=== PATIENT | male | born 1950 | race Caucasian/White ===

== ENCOUNTER 2019-04-16 06:18 | Emergency (ER) | payer MEDICARE, MEDICAID, SELFPAY ==
[2019-04-16] VITALS (7 sets, daily range): BP systolic 101–139; BP diastolic 66–81; PULSE 83–120; RESP 18–26; TEMP 36.5; O2SAT 94–96; BMI 24.8
--- NOTE | 2019-04-16 06:22 | ED_ITS ---
HPI - SOB/Dyspnea General: Chief Complaint: Shortness of Breath/Dyspnea Stated Complaint: SOB Time Seen by Provider: 04/16/19 06:22 History of Present Illness: Associated symptoms: Reports fever(s) and polyuria; Deny abdominal pain, chest pain, dizziness, extremity pain, nausea, orthopnea, palpitations, polydipsia, syncope or vomiting Review of Systems Const: Reports: fever, chills, body aches and malaise; Denies: fatigue or night sweats Eyes: Denies: change in vision or blurry vision ENMT: Reports: nasal discharge and nasal congestion; Denies: throat pain, oral sores/lesions or dental pain Card: Reports: shortness of breath on exertion; Denies: chest pain, palpitations, irregular heart rhythm, edema, syncope, shortness of breath when lying down or leg pain with exertion Resp: Reports: shortness of breath and productive cough; Denies: non-productive cough or wheezing GI: Reports: heartburn/indigestion; Denies: abdominal pain, nausea, vomiting, vomiting blood, coffee grounds in vomit, difficulty swallowing, diarrhea, constipation, cramping, blood in stool or black tarry stool : Denies: flank pain, difficulty urinating, painful urination, urinary frequency, urinary urgency, urinary incontinence or blood in urine Musc: Denies: neck pain, back pain, extremity pain, extremity swelling, joint pain or joint swelling Skin/Breast: Denies: rash, itching or redness Neuro: Denies: headache, numbness in extremities, weakness in extremities, changes in sensation, lack of coordination, difficulty walking, frequent falls, dizziness, vertigo or confusion Endo: Reports: excessive urination; Denies: excessive thirst, tired all the time or cold intolerance Jax/Lymph: Denies: easy bruising, easy bleeding, petechiae, enlarged lymph nodes or tender lymph nodes PFSH ED PFSH: Statuses (acute, chronic, etc) shown below reflect problem list status as previously entered and may not be historically accurate Social History Smoking and tobacco status: former smoker Physical Exam Const: COMMON NORMALS: average body habitus, oriented x3 and alert GENERAL APPEARANCE: cooperative, comfortable and well developed NUTRITIONAL APPEARANCE: obese ORIENTATION/CONSCIOUSNESS: Yes awake, Yes oriented to person and Yes oriented to place HENMT: COMMON NORMALS: normocephalic, head/scalp atraumatic, EAC's normal, TM's normal bilaterally, external nose normal, moist oral mucous membranes and oropharynx normal HEAD & SCALP: normocephalic and atraumatic NOSE: external nose normal EXTERNAL AUDITORY CANAL: EAC's normal TYMPANIC MEMBRANE: TM's normal bilaterally MOUTH: oral and palatal mucosa normal, lip normal and tongue normal THROAT: posterior oropharynx normal and tonsils no rmal Eye: COMMON NORMALS: PERRL, EOMs intact bilaterally, conjunctivae normal and no scleral icterus CONJUNCTIVA: Yes conjunctivae normal PUPIL: Yes PERRL Neck/C-Spine: COMMON NORMALS: full ROM, no lymphadenopathy, supple, no meningeal signs and thyroid normal THYROID: thyroid normal and asymmetrical Lymph: LYMPHATIC: no lymphadenopathy noted Resp: AUSCULTATION: rhonchi throughout and wheezes expiratory wheezes and throughout Cardio: COMMON NORMALS: regular rate and regular rhythm RATE: regular rate RHYTHM: regular rhythm HEART SOUNDS: no murmurs GI: COMMON NORMALS: normal to inspection, nondistended, normoactive bowel sounds, soft to palpation and no hepatosplenomegaly PALPATION: Yes soft and Yes no hepatosplenomegaly : COMMON NORMALS: Yes no CVA tenderness BLADDER/KIDNEY EXAM: Yes no CVA tenderness Back/Pelvis: COMMON NORMALS: no CVA tenderness LUMBAR SPINE/LOWER BACK: Yes normal to inspection Extremity: COMMON NORMALS: no clubbing, cyanosis or edema, no calf tenderness and no pedal edema Neuro: COMMON NORMALS: oriented x3 SENSORIUM/ORIENTATION: Yes alert, Yes oriented to person and Yes oriented to place MENINGEAL SIGNS: Yes no meningeal signs Psych: APPEARANCE: Yes unkempt Skin: COMMON NORMALS: no rashes or lesions noted and skin turgor normal GENERAL SKIN EXAM: no rashes or lesions noted and turgor normal Course Vital Signs: Vital signs: Vital Signs Temperature 97.7 F 04/16/19 06:18 Pulse Rate 98 04/16/19 09:54 Respiratory Rate 23 H 04/16/19 08:44 Blood Pressure 139/81 04/16/19 09:54 Pulse Oximetry 94 04/16/19 09:54 MDM - SOB/Dyspnea Medical Records: Medical records narrative: ABG reviewed in the lab section of the chart. Lab Data: Labs: Lab Results 04/16/19 04/16/19 04/16/19 Range/Units 06:30 06:30 06:47 WBC 10.2 H (4.0-10.0) 10^3/ uL RBC 3.75 L (4.1-5.3) 10^6/u L Hgb 9.8 L (11.7-16.6) g/dL Hct 32.4 L (42.0-52.0) % MCV 86.4 (80-94) fL MCH 26.1 L (28.0-34.0) pg MCHC 30.2 (30.0-36.0) g/dL RDW 13.9 (12.1-15.1) % Plt Count 185 (130-400) 10^3/c mm MPV 10.1 (7.4-10.4) fL Neut % (Auto) 77.3 % Lymph % (Auto) 12.1 % Galax % (Auto) 8.5 % Eos % (Auto) 1.3 % Baso % (Auto) 0.4 % Neut # (Auto) 7.9 H (1.8-7.7) 10^3/u L Lymph # (Auto) 1.2 (0.8-4.8) 10^3/u L Galax # (Auto) 0.9 (0.2-0.9) 10^3/u L Eos # (Auto) 0.1 (0.0-0.8) 10^3/u L Baso # (Auto) 0.0 (0.0-0.1) 10^3/u L Nucleated RBC % (a uto) 0 % Nucleated RBCs # 0.0 /100WBC Specimen Type Sample Site ABG pH (7.35-7.45) ABG pCO2 (35-45) mmHg ABG pO2 (80.0-100.0) mmH g ABG HCO3 (22-26) mmol/L ABG Base Excess (-2.0-2.0) mmol/ L Singh Test Hematocrit (42-52) % Hgb O2 Saturation (95-100) % O2 Delivery Device O2 Liters/Min % FiO2 % Specimen Drawn By Dowel Inserting Machine Operator ID Sodium 135 L (136-145) mmol/L Potassium 3.9 (3.5-5.1) mmol/L Chloride 98 (98-107) mmol/L Carbon Dioxide 25 (22-29) mmol/L Anion Gap 15.9 (5-19) BUN 15 (8-23) mg/dL Creatinine 0.7 (0.7-1.2) mg/dL GFR Calculation 112.1 (90-130) mL/min Glucose 214 H (74-106) mg/dL POC Glucose 202 (70-110) mg/dL Calcium 9.8 (8.8-10.2) mg/Dl Total Bilirubin 0.4 (0.15-1.2) mg/dL AST 13 (0-40) U/L ALT 9 (0-41) U/L Alkaline Phosphata se 106 (40-130) IU/L Total Protein 6.9 (6.6-8.7) g/dL Albumin 4.6 (3.5-5.2) g/dL Globulin 2.3 (1.3-4.6) g/dL 04/16/19 Range/Units 07:49 WBC (4.0-10.0) 10^3/ uL RBC (4.1-5.3) 10^6/u L Hgb (11.7-16.6) g/dL Hct (42.0-52.0) % MCV (80-94) fL MCH (28.0-34.0) pg MCHC (30.0-36.0) g/dL RDW (12.1-15.1) % Plt Count (130-400) 10^3/c mm MPV (7.4-10.4) fL Neut % (Auto) % Lymph % (Auto) % Gal[place] % (Auto) % Eos % (Auto) % Baso % (Auto) % Neut # (Auto) (1.8-7.7) 10^3/u L Lymph # (Auto) (0.8-4.8) 10^3/u L Galax # (Auto) (0.2-0.9) 10^3/u L Eos # (Auto) (0.0-0.8) 10^3/u L Baso # (Auto) (0.0-0.1) 10^3/u L Nucleated RBC % (a uto) % Nucleated RBCs # /100WBC Specimen Type Arterial Sample Site Radial, left ABG pH 7.48 H (7.35-7.45) ABG pCO2 35.8 (35-45) mmHg ABG pO2 79.2 L (80.0-100.0) mmH g ABG HCO3 26.8 H (22-26) mmol/L ABG Base Excess 3.3 H (-2.0-2.0) mmol/ L Singh Test Pos Hematocrit 31.3 L (42-52) % Hgb O2 Saturation 95.4 (95-100) % O2 Delivery Device Nc O2 Liters/Min 4.0 % FiO2 36.0 % Specimen Drawn By Ed Dowel Inserting Machine Operator ID ed Sodium (136-145) mmol/L Potassium (3.5-5.1) mmol/L Chloride (98-107) mmol/L Carbon Dioxide (22-29) mmol/L Anion Gap (5-19) BUN (8-23) mg/dL Creatinine (0.7-1.2) mg/dL GFR Calculation (90-130) mL/min Glucose (74-106) mg/dL POC Glucose (70-110) mg/dL Calcium (8.8-10.2) mg/Dl Total Bilirubin (0.15-1.2) mg/dL AST (0-40) U/L ALT (0-41) U/L Alkaline Phosphata se (40-130) IU/L Total Protein (6.6-8.7) g/dL Albumin (3.5-5.2) g/dL Globulin (1.3-4.6) g/dL Imaging Data^: CXR: Radiologist's impression: Portable AP upright chest, 04/16/2019 Clinical Data: dyspnea Comparison: Portable chest, 03/15/2019. Findings: No nodules, masses or effusions are seen. The heart is normal. The pulmonary vascularity is not increased. No pneumonia or pneumothorax is seen. The aortic arch and descending aorta are minimally tortuous. There is flattening of both diaphragms. There is atelectatic change and scarring in the right lower lobe. There is absence of the posterior aspect of the right seventh rib from surgery. Monitor leads are on the chest wall. XR/XR chest 1V portable [id number] Impression: 1. Postsurgical changes in the right lower lobe unchanged. 2. Atherosclerosis and hyperinflation. Dictated By: Deanna Martinez MD Discharge Plan Discharge Patient Disposition: Home, Self-Care Clinical Impression: COPD with acute bronchitis Condition: Stable Prescriptions: New prednisone 20 mg tablet 40 mg PO BID 7 Days Qty: 28 RF: 0 Levaquin 750 mg tablet 750 mg PO DAILY 7 Days RF: 0 No Action alendronate 70 mg Tablet See Rx Instructions .ROUTE .COMPLEX RF: 0 multivitamin Tablet 1 tab PO DAILY RF: 0 aspirin [Aspir-Low] 81 mg Tablet,Delayed Release (Dr/Ec) 81 mg PO DAILY RF: 0 tamsulosin 0.4 mg Capsule 0.4 mg PO DAILY RF: 0 albuterol sulfate [Ventolin HFA] 90 mcg/actuation Hfa Aerosol Inhaler See Rx Instructions .ROUTE .COMPLEX RF: 0 metformin 750 mg Tablet Extended Release 24 Hr 750 mg PO BID RF: 0 naproxen sodium 220 mg Capsule 220 mg PO BID PRN (Reason: Pain) RF: 0 guaifenesin [Mucinex] 600 mg Tablet Extended Release 12hr 600 mg PO BID RF: 0 albuterol sulfate 2.5 mg /3 mL (0.083 %) Solution For Nebulization 2.5 mg INHALATION Q4H PRN (Reason: Shortness Of Breath) RF: 0 felodipine 5 mg Tablet Extended Release 24 Hr 5 mg PO DAILY RF: 0 omeprazole 40 mg Capsule,Delayed Release(Dr/Ec) 40 mg PO DAILY RF: 0 [place] 7.5-325 mg Tablet 1 tab PO QID PRN (Reason: Pain) RF: 0 Januvia 100 mg Tablet 100 mg PO DAILY RF: 0 duloxetine 40 mg Capsule, Delayed Rel Sprinkle 40 mg PO DAILY RF: 0 Discharge Orders: Discharge Order (Routine); Ordered 04/16/19 Ordered By: Angel Griffith Referrals: Rossana Ruggiero MD [Primary Care Provider] - Discharge Diet: Usual diet Discharge Activity: Resume usual activity Discharge Date/Time: 04/16/19 09:28 Coding Level of Care Code ED Audiometrist for Magdig Fwd Exam Problem Focused
--- NOTE | 2019-04-16 06:36 | XR_ITS ---
WS: [id number] Portable AP upright chest, 04/16/2019 Clinical Data: dyspnea Comparison: Portable chest, 03/15/2019. Findings: No nodules, masses or effusions are seen. The heart is normal. The pulmonary vascularity is not increased. No pneumonia or pneumothorax is seen. The aortic arch and descending aorta are minima lly tortuous. There is flattening of both diaphragms. There is atelectatic change and scarring in the right lower lobe. There is absence of the posterior aspect of the right seventh rib from surgery. Mo nitor leads are on the chest wall. XR/XR chest 1V portable [id number] Impression: 1. Postsurgical changes in the right lower lobe unchanged. 2. Atherosclerosis and hyperinflation.
[2019-04-16] MEDS: sodium chloride 0.9% 500 ML 999 ML IV (06:44)
--- NOTE | 2019-04-16 06:47 | PC.NURSE ---
EKG was performed by a ryan and shown to ED physician @[id number]
[2019-04-16 06:50] LABS: Glucose Point of Care 202 mg/dL (70-110)
[2019-04-16 06:51] LABS: Basophils % 0.4 %; Eosinophils # 0.1 10^3/uL (0.0-0.8); Eosinophils % 1.3 %; Hematocrit 32.4 % (42.0-52.0); Hemoglobin 9.8 g/dL (11.7-16.6); Lymphocytes # 1.2 10^3/uL (0.8-4.8); Lymphocytes % 12.1 %; Mean Corpuscular HGB Conc 30.2 g/dL (30.0-36.0); Mean Corpuscular Hemoglobin 26.1 pg (28.0-34.0); Mean Corpuscular Volume 86.4 fL (80-94); Mean Platelet Volume 10.1 fL (7.4-10.4); Monocytes # 0.9 10^3/uL (0.2-0.9); Monocytes % 8.5 %; Neutrophils # 7.9 10^3/uL (1.8-7.7); Neutrophils % 77.3 %; Nucleated Red Blood Cells % 0 %; Platelet Count 185 10^3/cmm (130-400); Red Blood Count 3.75 10^6/uL (4.1-5.3); Red Cell Distribution Width 13.9 % (12.1-15.1); White Blood Count 10.2 10^3/uL (4.0-10.0)
[2019-04-16 06:55] LABS: Add RBC Morph No
[2019-04-16 07:00] LABS: Alanine Aminotransferase 9 U/L (0-41); Albumin Level 4.6 g/dL (3.5-5.2); Alkaline Phosphatase 106 IU/L (40-130); Anion Gap 15.9 (5-19); Aspartate Amino Transferase 13 U/L (0-40); Blood Urea Nitrogen 15 mg/dL (8-23); Calcium 9.8 mg/Dl (8.8-10.2); Carbon Dioxide 25 mmol/L (22-29); Chloride 98 mmol/L (98-107); Globulin 2.3 g/dL (1.3-4.6); Glomerular Filtration Rate 112.1 mL/min (90-130); Glucose 214 mg/dL (74-106); Potassium 3.9 mmol/L (3.5-5.1); Sodium 135 mmol/L (136-145); Total Bilirubin 0.4 mg/dL (0.15-1.2); Total Protein 6.9 g/dL (6.6-8.7)
--- NOTE | 2019-04-16 07:14 | PC.NURSE ---
Assumed care and report received from GORDY Camarena.
--- NOTE | 2019-04-16 07:20 | PC.NURSE ---
nurse collected sputum culture and sent to lab
[2019-04-16] MEDS: sodium chloride 0.9% 1,000 ML 125 ML IV (07:48)
[2019-04-16] MEDS: levofloxacin-dextrose 5 % 750 MG/150 ML PREMIX 150 MG IV (07:49)
[2019-04-16] MEDS: ipratropium-albuterol 3 mL Neb INHALATION (07:50)
[2019-04-16 07:59] LABS: ABG PCO2 35.8 mmHg (35-45); ABG PH Result 7.48 (7.35-7.45); Arterial Blood Gas Hematocrit 31.3 % (42-52); Base Excess ABG 3.3 mmol/L (-2.0-2.0); Blood Gas Allen Test Pos; Blood Gas Sample Site Radial, left; Blood Gas Sample Type Arterial; HCO3 ABG 26.8 mmol/L (22-26); HGB O2 Sat 95.4 % (95-100); PO2 ABG 79.2 mmHg (80.0-100.0)
[2019-04-16 11:17] LABS: Blood Gas Drawn By ED; Oxygen Device NC
[2019-04-21 12:37] LABS: Carboxyhemoglobin 1.1 %THgb (0.4-20.1); Methemoglobin 0.7 % (0.4-1.5); Total Hemoglobin 10.2 g/dL (14-18)
== END 2019-04-16 09:28 | disposition home or self-care (01) ==
PROVIDERS: Emergency Provider Family Medicine; Family Provider Family Medicine; PCP Family Medicine
DX: J44.0 Chronic obstructive pulmonary disease with (acute) lower respiratory infection (principal); J20.9 Acute bronchitis, unspecified
CPT/HCPCS: 36415; 36416; 36600; 71045; 80053; 82805; 82962; 85025; 87040; 87070; 87077; 87205; 96360; 96361; 96365; 96374; 99282; J1956; J2930; J7030; J7040

== ENCOUNTER → 2019-06-10 11:08 | Outpatient (BNVA) | payer MEDICARE, MEDICAID, SELFPAY | PROVIDERS: Family Provider Family Medicine; PCP Family Medicine; Visit Provider Nurse Practitioner | DX: M54.9 Dorsalgia, unspecified (principal); Z79.891 Long term (current) use of opiate analgesic | CPT/HCPCS: 99214 ==

== ENCOUNTER → 2019-10-20 14:11 | Outpatient (BNVA) | payer MEDICARE, MEDICAID, SELFPAY | PROVIDERS: Family Provider Family Medicine; PCP Family Medicine; Visit Provider Nurse Practitioner | DX: M54.41 Lumbago with sciatica, right side (principal); Z79.891 Long term (current) use of opiate analgesic | CPT/HCPCS: 99213 ==

== ENCOUNTER 2019-11-02 06:46 | Outpatient (CLI) | payer MEDICARE, MEDICAID, SELFPAY ==
--- NOTE | 2019-11-02 15:21 | PFTS_ITS ---
Date of Study:11/02/19 Date of Dictation: MECHANICS: Forced vital capacity (FVC) is reduced. Forced expiratory volume in one second (FEV1) is reduced. FEV1/FVC is reduced.. FLOW VOLUME LOOP: Reduced flow at all lung volumes with significant scooping. LUNG VOLUMES: Total lung capacity (TLC) is normal. Residual volume (RV) is increased. DIFFUSING CAPACITY FOR CARBON MONOXIDE: Moderately reduced. INTERPRETATION: The pulmonary function tests are consistent with severe obstruction. There is no significant postbronchodilator response. Lung volumes are consistent with air trapping. Gas exchange (DLCO) is moderately reduced. MTDD
== END 2019-11-02 06:47 | disposition home or self-care (01) ==
PROVIDERS: Family Provider Family Medicine; PCP Family Medicine; Visit Provider Internal Medicine Critical Care Medicine
DX: J44.9 Chronic obstructive pulmonary disease, unspecified (principal)
CPT/HCPCS: 94060; 94726; 94729; J7611

== ENCOUNTER → 2019-11-17 13:24 | Outpatient (BNVA) | payer MEDICARE, MEDICAID, SELFPAY | PROVIDERS: Family Provider Family Medicine; PCP Family Medicine; Visit Provider Anesthesiology | DX: M54.42 Lumbago with sciatica, left side (principal); M54.41 Lumbago with sciatica, right side; Z79.891 Long term (current) use of opiate analgesic | CPT/HCPCS: 99213; 99214 ==

== ENCOUNTER → 2020-01-12 09:29 | Outpatient (BNVA) | payer MEDICARE, MEDICAID, SELFPAY | PROVIDERS: Family Provider Family Medicine; PCP Family Medicine; Visit Provider Anesthesiology | DX: M54.42 Lumbago with sciatica, left side (principal); M54.41 Lumbago with sciatica, right side; Z79.891 Long term (current) use of opiate analgesic | CPT/HCPCS: 99213; 99214 ==

== ENCOUNTER 2020-02-04 10:01 | Outpatient (RCR) | payer MEDICARE, MEDICAID, SELFPAY | END 2020-02-13 23:59 | disposition home or self-care (01) | LOC: PULRHB 10:01 | PROVIDERS: PCP Family Medicine; Visit Provider Internal Medicine Critical Care Medicine | DX: J96.11 Chronic respiratory failure with hypoxia (principal) | CPT/HCPCS: 94618; G0237; G0238 ==

== ENCOUNTER 2020-02-04 11:00 | Outpatient (CLI) | payer MEDICARE, MEDICAID, SELFPAY | END 2020-02-04 11:01 | disposition home or self-care (01) | LOC: SLEEP 02-05 11:57 | PROVIDERS: PCP Family Medicine; Visit Provider Internal Medicine Critical Care Medicine | DX: J44.9 Chronic obstructive pulmonary disease, unspecified (principal) | CPT/HCPCS: 94762 ==

== ENCOUNTER 2020-02-14 06:00 | Outpatient (RCR) | payer MEDICARE, MEDICAID, SELFPAY | END 2020-03-14 23:59 | disposition home or self-care (01) | LOC: PULRHB 06:00 | PROVIDERS: PCP Family Medicine; Visit Provider Internal Medicine Critical Care Medicine | DX: J96.11 Chronic respiratory failure with hypoxia (principal) | CPT/HCPCS: G0237; G0238; G0239 ==

== ENCOUNTER 2020-02-17 09:37 | Outpatient (CLI) | payer MEDICARE, MEDICAID, SELFPAY ==
--- NOTE | 2020-02-17 09:54 | CT_ITS ---
WS: [id number] CT scan of the chest with IV contrast, additional two-dimensional coronal and sagittal reconstruction was performed. 02/17/2020 Clinical Data: RESTAGING EVALUATION, LUNG CANCER Comparison: CTA chest, 03/15/2019. DLP: 977.[address] scans at [facility] use at least one of these dose optimization techniques: automat ed exposure control; mA and/or kV adjustment per patient size (includes targeted exams where dose is matched to clinical indication); or iterative reconstruction. Findings: No nodules, masses or effusions are seen. The heart size is normal with no pericardial effusion. The pulmonary arterial system and thoracic aorta demonstrate no abnormalities or dilatations. There is vo lume loss in the right lung from a right lower lobectomy. There is right pleural thickening. There is a posterior lateral right eighth rib fracture from the thoracotomy. No pneumonia or pneumothorax is present. There is no axillary or significant mediastinal adenopathy. There is a small hiatal hernia The upper abdomen shows no change from before. There are clips in the gallbladder fossa from a cholec ystectomy. The bones of the thorax show osteoarthritis but no metastatic lesions. CT/CT chest w con* [id number] Impression: 1. Right lower lobectomy with chronic changes. 2. Negative for acute cardiopulmonary disease.
[2020-02-17 10:15] LABS: Blood Urea Nitrogen 18 mg/dL (8-23); Glomerular Filtration Rate 96.1 mL/min (90-130)
== END 2020-02-17 09:38 | disposition home or self-care (01) ==
LOC: RADWPI 09:44
PROVIDERS: PCP Family Medicine; Visit Provider Internal Medicine Hematology & Oncology
DX: Z85.118 Personal history of other malignant neoplasm of bronchus and lung (principal); Z90.2 Acquired absence of lung [part of]
CPT/HCPCS: 71260; 82565; 84520; Q9967

== ENCOUNTER 2020-03-08 20:17 | Inpatient (IN) | payer MEDICARE, MEDICAID, SELFPAY ==
--- NOTE | 2020-03-08 20:17 | ECG_ITS ---
[facility] Test Date: 2020-03-08 Pat Name: Moses Cardoza Department: Room: Gender: Male Paster Operator: : 1950 Requested By: Beverly You Order Number: [id number] Reading MD: PAULIE HERRERA Measurements Intervals Grant Rate: 95 P: 63 AL: 143 QRS: 55 QRSD: 90 T: 90 QT: 320 QTc: 403 Interpretive Statements SINUS RHYTHM NONSPECIFIC T-WAVE ABNORMALITY Compared to ECG 03/15/2019 07:06:41 T-wave abnormality now present Myocardial infarct finding no longer present Electronically Signed On 03-10-2020 15:24:52 SCALEMAKER by PAULIE HERRERA [id number]
--- NOTE | 2020-03-08 20:17 | XRR_ITS ---
PROCEDURE INFORMATION: Exam: XR Chest, 1 View Exam date and time: 03/08/2020 8:36 PM Age: 70 years old Clinical indication: Shortness of breath; Additional info: SOB TECHNIQUE: Imaging protocol: XR of the chest Views: 1 view. COMPARISON: CT chest w con* [id number] 02/17/2020 10:25 AM FINDINGS: Lungs: There are severe emphysematous changes with chronic scarring in the right lung. When compared with the prior chest CT, there is increased airspace opacity in the right lung especially in the right lower lobe concerning for pneumonic infiltrate. There is also mild vascular congestion with probable mild interstitial CHF. Pleural space: There is unchanged apical pleural thickening/scarring. Heart/Mediastinum: Unremarkable. No cardiomegaly. Bones/joints: Old right rib fracture deformities are noted. XR/XR chest 1V portable [id number] IMPRESSION: When compared with the prior chest CT, there is increased airspace opacity in the right lung especially in the right lower lobe concerning for pneumonic infiltrate. There is also probable mild interstitial CHF.
[2020-03-08 20:18] VITALS: BP 166/88; PULSE 111; RESP 20; TEMP 37.9; O2SAT 93; BMI 25.1
--- NOTE | 2020-03-08 20:22 | ED_ITS ---
HPI - SOB/Dyspnea General: Chief Complaint: Shortness of Breath/Dyspnea Stated Complaint: SOB Time Seen by Provider: 03/08/20 20:21 Source: patient and EMS Mode of arrival: EMS Limitations: no limitations History of Present Illness: HPI Narrative: 70-year-old male who has had a history of COPD for years along with history of lung cancer and had a right lobectomy. Patient states that he is having some increased shortness of breath today along with chills. Patient denies any cough. Patient brought in by EMS and he is on his baseline of 4 L and currently 94%. He denies any worsening improving factors. Associated symptoms: Deny abdominal pain, chest pain, nausea or vomiting Review of Systems Const: Reports: chills Eyes: Denies: blurry vision or eye discomfort ENMT: Denies: throat pain or dental pain Card: Denies: chest pain Resp: Reports: dyspnea and wheezing GI: Denies: abdominal pain, nausea, vomiting or diarrhea : Denies: dysuria Musc: Denies: neck pain or back pain Skin/Breast: Denies: rash Neuro: Denies: headache(s) Psych: Denies: depression Jax/Lymph: Denies: easy bruising All/Imm: Denies: urticaria PFSH ED PFSH: Medical History (Updated 03/08/20 @ 22:01 by Beverly You MD) COPD (chronic obstructive pulmonary disease) Encounter for long-term (current) use of NSAIDs Encounter for long-term opiate analgesic use GERD (gastroesophageal reflux disease) Low back pain of over 3 months duration Lung cancer Opioid contract exists Type 2 diabetes mellitus Surgical History History of lobectomy of lung right lung-Dr. Hwang -[place] Hx of cholecystectomy Hx of eye surgery bilat-Dr. Navarrete did right and Dr. Perez in [place] Hx of kyphoplasty 07/05/[address] Powell Family History Brother Cancer Diabetes Heart disease Social History Smoking and tobacco status: former smoker Quit status (tobacco): has quit using tobacco Year quit tobacco: 2016 - PPD x 45 Years Second hand smoke exposure: No Alcohol intake: never Lives independently: Yes Household members: none Marital status: service: No Current occupational status: disabled History of recent travel: No Current gender identity: Male Physical Exam Const: COMMON NORMALS: no acute distress, patient oriented x3 and healthy appearing HENMT: COMMON NORMALS: normocephalic and atraumatic HEAD & SCALP: normocephalic and atraumatic Eye: COMMON NORMALS: Equal, round and reactive pupils present and EOMs intact bilaterally PUPIL: Yes Equal, round and reactive pupils present Neck/C-Spine: COMMON NORMALS: full ROM and supple Chest: COMMONS NORMALS: normal inspection of the chest and normal palpation of entire chest wall Resp: COMMON NORMALS: normal respiratory effort, No retractions and No use of accessory muscles AUSCULTATION: wheezes Cardio: COMMON NORMALS: regular rate, regular rhythm and No murmurs present (Cardio) RATE: regular rate RHYTHM: regular rhythm GI: COMMON NORMALS: Normal to inspection, nondistended, normoactive bowel sounds present, Soft to palpation, non-tender and no masses PALPATION: Yes Soft to palpation Extremity: COMMON NORMALS: normal to inspection and full ROM Neuro: COMMON NORMALS: patient oriented x3, moves all extremities and no focal motor deficits Psych: COMMON NORMALS: mental status grossly normal, Normal thought process present and cooperative THOUGHT PROCESS: Normal thought process present Skin: COMMON NORMALS: no rashes or lesions noted and no wounds GENERAL SKIN EXAM: no rashes or lesions noted Course Vital Signs: Vital signs: Vital Signs Temperature 100.3 F H 03/08/20 20:18 Pulse Rate 82 03/08/20 21:25 Respiratory Rate 17 03/08/20 21:25 Blood Pressure 160/82 03/08/20 21:25 Pulse Oximetry 99 03/08/20 21:25 MDM - SOB/Dyspnea MDM Narrative: Medical decision making narrative: Moses presents here with right-sided pneumonia with history of COPD with worsening shortness of breath. Started patient on IV antibiotics spoke to hospitalist will admit for his pneu monia with his multiple risk factors. He has been well-appearing here and his Covid was negative he has no signs of pulmonary embolism. Lab Data: Labs: Lab Results 03/08/20 03/08/20 03/08/20 Range/Units 20:35 20:35 20:35 WBC Cancelled Corrected WBC Cancelled RBC Cancelled Hgb Cancelled Hct Cancelled MCV Cancelled MCH Cancelled MCHC Cancelled RDW Cancelled Plt Count Cancelled MPV Cancelled Gran % Cancelled Neut % (Auto) Cancelled Lymph % (Auto) Cancelled [place] % (Auto) Cancelled Eos % (Auto) Cancelled Baso % (Auto) Cancelled Neut # (Auto) Cancelled Lymph # (Auto) Cancelled [place] # (Auto) Cancelled Eos # (Auto) Cancelled Baso # (Auto) Cancelled Absolute Gran (aut o) Cancelled Nucleated RBC % (a uto) Cancelled Nucleated RBCs # Cancelled Sodium 140 (136-145) mmol/L Potassium 4.3 (3.5-5.1) mmol/L Chloride 101 (98-107) mmol/L Carbon Dioxide 29 (22-29) mmol/L Anion Gap 14.3 (5-19) BUN 19 (8-23) mg/dL Creatinine 0.8 (0.7-1.2) mg/dL GFR Calculation 95.8 (90-130) mL/min Glucose 202 H (65-115) mg/dL Calculated Osmolal ity 298 H (285-295) mOsm/k g Lactate 1.5 (0.5-2.2) mmol/L Calcium 9.2 (8.5-10.5) mg/dL Total Bilirubin 0.2 (0.15-1.2) mg/dL AST 15 (0-40) U/L ALT 13 (0-41) U/L Alkaline Phosphata se 94 (40-130) IU/L NT-Pro-B Natriuret Pep 82 (0-125) pg/mL Total Protein 7.5 (6.6-8.7) g/dL Albumin 4.4 (3.5-5.2) g/dL Globulin 3.1 (1.3-4.6) g/dL Influenza Type A A g (Negative) Influenza Type B A g (Negative) SARS-CoV-2 Ag (Rap id) (Negative) 03/08/20 03/08/20 03/08/20 Range/Units 20:35 20:35 21:35 WBC 12.2 H Corrected WBC RBC 3.48 L Hgb 9.0 L Hct 29.6 L MCV 85.1 MCH 25.9 L MCHC 30.4 RDW 13.9 Plt Count 146 MPV 11.5 H Gran % Neut % (Auto) 89.5 Lymph % (Auto) 4.3 Harlan % (Auto) 5.3 Eos % (Auto) 0.5 Baso % (Auto) 0.2 Neut # (Auto) 10.89 H Lymph # (Auto) 0.5 L [place]lan # (Auto) 0.6 Eos # (Auto) 0.1 Baso # (Auto) 0.0 Absolute Gran (aut o) Nucleated RBC % (a uto) 0 Nucleated RBCs # 0.0 Sodium (136-145) mmol/L Potassium (3.5-5.1) mmol/L Chloride (98-107) mmol/L Carbon Dioxide (22-29) mmol/L Anion Gap (5-19) BUN (8-23) mg/dL Creatinine (0.7-1.2) mg/dL GFR Calculation (90-130) mL/min Glucose (65-115) mg/dL Calculated Osmolal ity (285-295) mOsm/k g Lactate (0.5-2.2) mmol/L Calcium (8.5-10.5) mg/dL Total Bilirubin (0.15-1.2) mg/dL AST (0-40) U/L ALT (0-41) U/L Alkaline Phosphata se (40-130) IU/L NT-Pro-B Natriuret Pep (0-125) pg/mL Total Protein (6.6-8.7) g/dL Albumin (3.5-5.2) g/dL Globulin (1.3-4.6) g/dL Influenza Type A A g Negative (Negative) Influenza Type B A g Negative (Negative) SARS-CoV-2 Ag (Rap id) Negative (Negative) Imaging Data^: CXR: Attestation: I personally reviewed and interpreted this imaging study as follows: Radiologist's impression: [address] [address] XRay Report Signed Patient: Moses Cardoza Unit #: [id number] : 1950 Age/Sex: 70 / M ADM Date: 03/08/20 Loc: ER Room/Bed: Attending Dr: Ordering Provider/Ordering MD: Beverly You MD Date of Service: 03/08/20 Procedure(s): XR chest 1V portable [id number] Accession Number(s): [id number] Report Number: [id number] PROCEDURE INFORMATION: Exam: XR Chest, 1 View Exam date and time: 03/08/2020 8:36 PM Age: 70 years old Clinical indication: Shortness of breath; Additional info: SOB TECHNIQUE: Imaging protocol: XR of the chest Views: 1 view. COMPARISON: CT chest w con* [id number] 02/17/2020 10:25 AM FINDINGS: Lungs: There are severe emphysematous changes with chronic scarring in the right lung. When compared with the prior chest CT, there is increased airspace opacity in the right lung especially in the right lower lobe concerning for pneumonic infiltrate. There is also mild vascular congestion with probable mild interstitial CHF. Pleural space: There is unchanged apical pleural thickening/scarring. Heart/Mediastinum: Unremarkable. No cardiomegaly. Bones/joints: Old right rib fracture deformities are noted. XR/XR chest 1V portable [id number] IMPRESSION: When compared with the prior chest CT, there is increased airspace opacity in the right lung especially in the right lower lobe concerning for pneumonic infiltrate. There is also probable mild interstitial CHF. EKG Data^: EKG 1: Attestation: I personally reviewed and interpreted this EKG as follows: EKG Interpretation Date: 03/08/20 EKG interpretation time: 20:25 Interpretation: nsr hr [address] or t wave abnormalities qrs 90 qtc 372 Discharge Plan Discharge Patient Disposition: Admitted As Inpatient Clinical Impression: Pneumonia Qualifiers: Pneumonia type: due to unspecified organism Laterality: right Lung location: unspecified part of lung Qualified Code(s): J18.9 - Pneumonia, unspecified organism Condition: Stable Coding Level of Care Code ED Aviation Electrical Technician for Chg Fwd Exam Comprehensive
[2020-03-08] MEDS: acetaminophen 325 mg Tablet 650 MG PO (21:00)
[2020-03-08 21:22] LABS: Influenza A by IFA Negative (Negative); SARS Covid-2 Antigen Negative (Negative)
[2020-03-08 21:23] LABS: Influenza B by IFA Negative (Negative); Lactate (Lactic Acid level) 1.5 mmol/L (0.5-2.2)
[2020-03-08 21:25] VITALS: BP 160/82; PULSE 82; RESP 17; O2SAT 99
[2020-03-08 21:33] LABS: Alanine Aminotransferase 13 U/L (0-41); Albumin Level 4.4 g/dL (3.5-5.2); Alkaline Phosphatase 94 IU/L (40-130); Anion Gap 14.3 (5-19); Aspartate Amino Transferase 15 U/L (0-40); Blood Urea Nitrogen 19 mg/dL (8-23); Calcium 9.2 mg/dL (8.5-10.5); Carbon Dioxide 29 mmol/L (22-29); Chloride 101 mmol/L (98-107); Creatinine Clr Calc Pharmacy 95.9471; Globulin 3.1 g/dL (1.3-4.6); Glomerular Filtration Rate 95.8 mL/min (90-130); Glucose 202 mg/dL (65-115); NT Pro B Type Natriuretic Pept 82 pg/mL (0-125); Osmolality Calculated 298 mOsm/kg (285-295); Potassium 4.3 mmol/L (3.5-5.1); Sodium 140 mmol/L (136-145); Total Bilirubin 0.2 mg/dL (0.15-1.2); Total Protein 7.5 g/dL (6.6-8.7)
[2020-03-08 21:43] LABS: Basophils % 0.2 %; Eosinophils # 0.1 10^3/uL (0.0-0.8); Eosinophils % 0.5 %; Hematocrit 29.6 % (42.0-52.0); Lymphocytes # 0.5 10^3/uL (0.8-4.8); Lymphocytes % 4.3 %; Mean Corpuscular HGB Conc 30.4 g/dL (30.0-36.0); Mean Corpuscular Hemoglobin 25.9 pg (28.0-34.0); Mean Corpuscular Volume 85.1 fL (80-94); Mean Platelet Volume 11.5 fL (7.4-10.4); Monocytes # 0.6 10^3/uL (0.2-0.9); Monocytes % 5.3 %; Neutrophils # 10.89 10^3/uL (1.8-7.7); Neutrophils % 89.5 %; Nucleated Red Blood Cells % 0 %; Platelet Count 146 10^3/cmm (130-400); Red Blood Count 3.48 10^6/uL (4.1-5.3); Red Cell Distribution Width 13.9 % (12.1-15.1); White Blood Count 12.2 10^3/uL (4.0-10.0)
[2020-03-08] MEDS: cefTRIAXone 1,000 MG in sodium chloride 0.9% (plus) 50 ML 100 MG IV (22:16)
[2020-03-08 22:29] VITALS: BP 161/88; PULSE 80; RESP 16; O2SAT 97
[2020-03-08] MEDS: azithromycin 500 MG in sodium chloride 0.9% 250 ML 250 MG IV (22:51)
[2020-03-08 22:56] VITALS: BP 152/90; PULSE 82; RESP 17; TEMP 38; O2SAT 96
[2020-03-08 23:05] VITALS: BP 153/91; PULSE 81; RESP 17; O2SAT 96
--- NOTE | 2020-03-08 23:21 | P.HP_ITS ---
Providers/Chief Complaint Admitting Physician: Sherri Mendoza MD Primary Care Provider: Rossana Ruggiero MD Chief Complaint: SOB History of Present Illness Moses Cardoza is a 70 year old male gold class D COPD, previous history of lung cancer and underwent right lower lobectomy 5 years ago. The patient has chronic hypoxic respiratory failure and using 4 L of oxygen at all times. C urrently on Trelegy and using as needed albuterol. Presents today with low grade fever and chills. Denies worsened cough. No hemoptysis. Tmax 100.4, leukocytosis 12, CXR with RLL pneumonia, Covid rapid ag and influenza ag negative. Earlier in the day he had undergone day surgery with Dr. Navarrete, lopez sn't recall what procedure, thinks this was under general anesthesia. Review of Systems General: Reports: 10 or more systems reviewed and unremarkable except in HPI and below Const: Denies: fever(s), chills or body aches Eyes: Denies: change in vision, blurry vision or photophobia ENMT: Reports: hoarseness; Denies: throat pain, enlarged tonsils, odynophagia or nasal congestion Card: Denies: chest pain, palpitations, irregular heart rhythm, edema, swelling of feet/ankles, lightheadedness, pre-syncope, dyspnea on exertion or orthopnea Resp: Denies: dyspnea, productive cough, non-productive cough, wheezing, stridor, pain on inspiration, change in phlegm color, hemoptysis or chest congestion GI: Denies: abdominal pain, nausea, vomiting, hematemesis, coffee ground emesis, dysphagia, heartburn, diarrhea, constipation, GI cramping, change in stool character, hematochezia or melena : Denies: flank pain, dysuria, urinary frequency, urinary urgency, urinary hesitancy or hematuria Musc: Denies: neck pain, back pain, extremity pain, joint swelling, joint warmth or deformity Neuro: Denies: headache(s), numbness in extremities, weakness in extremities, sensory changes, difficulty walking, frequent falls, dizziness, vertigo, behavioral changes, Slurred speech present or seizure-like activity Psych: Denies: anxiety, depression, suicidal ideation or homicidal ideation Endo: Denies: polyuria, polydipsia, tired all the time, cold intolerance or hot flashes Jax/Lymph: Denies: easy bruising or easy bleeding Medications/Allergies Home Medications Medication Instructions Recorded Confirmed Last Taken Type albuterol sulfate [Ventolin HFA] See Rx Instructions .ROUTE .COMPLEX 04/16/19 03/08/20 03/08/20 History alendronate See Rx Instructions .ROUTE .COMPLEX 04/16/19 03/08/20 03/05/20 History aspirin [Aspir-Low] 81 mg PO DAILY 04/16/19 03/08/20 03/07/20 History duloxetine 40 mg PO DAILY 04/16/19 03/08/20 03/08/20 History felodipine 5 mg PO DAILY 04/16/19 03/08/20 03/08/20 History guaifenesin [Mucinex] 600 mg PO BID 04/16/19 03/08/20 03/08/20 History metformin 750 mg PO BID 04/16/19 03/08/20 03/08/20 History multivitamin 1 tab PO DAILY 04/16/19 03/08/20 03/08/20 History omeprazole 40 mg PO DAILY 04/16/19 03/08/20 03/08/20 History sitagliptin [Januvia] 100 mg PO DAILY 04/16/19 03/08/20 03/08/20 History tamsulosin 0.4 mg PO DAILY 04/16/19 03/08/20 03/08/20 History naproxen sodium 220 mg capsule 220 mg PO BID PRN 90 Days #180 cap 10/20/19 03/08/20 03/08/20 Rx hydrocodone 7.5 mg-acetaminophen 1 tab PO .5 times a day PRN 30 01/12/20 03/08/20 03/08/20 Rx 325 mg tablet Days #150 tab fluticasone fur. 100 mcg-umeclid See Rx Instructions .ROUTE 02/02/20 03/08/20 03/08/20 Rx 62.5 mcg-vilant 25 mcg .COMPLEX #60 each inhalat.powder diejapfbisw-tiuyipuhs-dgmzeecn See Rx Instructions .ROUTE .COMPLEX 03/08/20 03/08/20 03/08/20 History [Trelegy Ellipta] rosuvastatin 10 mg PO DAILY 03/08/20 03/08/20 03/08/20 History Allergies Allergy/AdvReac Type Severity Reaction Status Date / Time No Known Allergies Allergy Verified 01/13/20 14:01 PFSH Acute PFSH: Medical History (Updated 03/08/20 @ 23:24 by Sherri Mendoza MD) COPD (chronic obstructive pulmonary disease) Encounter for long-term (current) use of NSAIDs Encounter for long-term opiate analgesic use GERD (gastroesophageal reflux disease) Low back pain of over 3 months duration Lung cancer Opioid contract exists Type 2 diabetes mellitus Surgical History History of lobectomy of lung right lung-Dr. Hwang -[place] Hx of cholecystectomy Hx of eye surgery bilat-Dr. Navarrete did right and Dr. Perez in [place] Hx of kyphoplasty 07/05/[address] Powell Family History Brother Cancer Diabetes Heart disease Social History Smoking and tobacco status: former smoker Quit status (tobacco): has quit using tobacco Year quit tobacco: 2015 PPD x 45 Years Second hand smoke exposure: No Alcohol intake: never Lives independently: Yes Household members: none Marital status: service: No Current occupational status: disabled History of recent travel: No Current gender identity: Male Vitals/I&O/Wt Last Vital Signs Temp 100.4 F H 03/08/20 22:56 Pulse 81 03/08/20 23:05 Resp 17 03/08/20 23:05 BP 153/91 03/08/20 23:05 Pulse Ox 96 03/08/20 23:05 03/08/20 03/08/20 03/09/20 14:59 22:59 06:59 Intake Total 50 / 50 Balance 50 / 50 Weight last 48 hrs Weight 81.647 kg Physical Exam Const: COMMON NORMALS: no acute distress, average body habitus, patient oriented x3, no limitations, healthy appearing, alert and well nourished HENMT: COMMON NORMALS: normocephalic and atraumatic HEAD & SCALP: normocephalic and atraumatic Eye: COMMON NORMALS: Equal, round and reactive pupils present, EOMs intact bilaterally, conjunctivae normal and no scleral icterus CONJUNCTIVA: Yes conjunctivae normal PUPIL: Yes Equal, round and reactive pupils present Neck/C-Spine: COMMON NORMALS: no JVD Resp: COMMON NORMALS: normal respiratory effort, No retractions, No use of accessory muscles, clear to auscultation bilaterally and percussion normal AUSCULTATION: clear to auscultation bilaterally PERCUSSION: percussion normal Cardio: COMMON NORMALS: no JVD, regular rate, regular rhythm, S1 normal heart sound present, S2 normal heart sound present, No gallops present (Cardio), No clicks present (Cardio), No murmurs present (Cardio), No rub (Cardio) and Peripheral pulses 2+ throughout RATE: regular rate RHYTHM: regular rhythm HEART SOUNDS: S1 normal heart sound present and S2 normal heart sound present PERIPHERAL PULSES: Peripheral pulses 2+ throughout GI: COMMON NORMALS: Normal to inspection, nondistended, normoactive bowel sounds present, Soft to palpation, non-tender, No hepatosplenomegaly present, no masses and no bruits PALPATION: Yes Soft to palpation and Yes No hepatosplenomegaly present Extremity: COMMON NORMALS: normal to inspection, full ROM, capillary refill normal, no joint enlargement, no clubbing, cyanosis or edema, no calf tenderness and no pedal edema Neuro: COMMON NORMALS: patient oriented x3, CN's II-XII intact bilaterally, moves all extremities, no focal motor deficits, no sensory deficits noted, deep tendon reflexes 2+ bilaterally and gait normal SENSORIUM/ORIENTATION: Yes alert Psych: COMMON NORMALS: mental status grossly normal, Normal thought process present, cooperative, normal affect, speech normal, activity/motor behavior normal, denies hallucinations, denies homicidal ideation and denies suicidal ideation SPEECH: Yes normal speech THOUGHT PROCESS: Normal thought process present Skin: COMMON NORMALS: no rashes or lesions noted, no wounds, turgor normal, no jaundice, no petechiae and no mottling GENERAL SKIN EXAM: no rashes or lesions noted and turgor normal Data : 03/08/20 21:35 03/08/20 20:35 Micro: Microbiology 03/08/20 21:16 Blood Culture - Preliminary Blood SPECIMEN COLLECTED 03/08/20 21:11 Blood Culture - Preliminary Blood SPECIMEN COLLECTED A&P Assessment and plan (1) Community acquired pneumonia: Start antibiotics treatment with ceftriaxone and azithromycin empirically Urine legionella and bacterial antigen Rapid covid negative, PTC sent Alternate etiology for fever may be post op fever from day surgery today. Will obtain records in the morning from office. Status: Acute (2) COPD (chronic obstructive pulmonary disease): Not currently exacerbated, patient comfortable at regular 02 requirement at 4lpm Continue trelegy inhaler from home, albuterol prn Status: Acute (3) Chronic respiratory failure with hypoxia: Status: Acute Attestations Medical Necessity Statement*: Anticipate >2midnight admission for management of community acquired pneumonia, need for iv antibiotics, high risk of progression Coding Level of Care Code Acute Integrated Circuit Ic Layout Designer for g Fwd Exam Comprehensive Diagnoses Community acquired pneumonia J18.9 COPD (chronic obstructive pulmonary disease) J44.9 Chronic respiratory failure with hypoxia J96.11
[2020-03-08 23:35] VITALS: BP 141/73; PULSE 86; RESP 18; TEMP 37; O2SAT 96
[2020-03-09] VITALS (8 sets, daily range): BP systolic 121–153; BP diastolic 60–78; PULSE 63–97; RESP 16–18; TEMP 36.5–36.8; O2SAT 96–100
[2020-03-09] MEDS: HYDROcodone-acetaminophen 7.5-325 mg Tablet 1 TAB PO ×4 (00:46→19:20)
[2020-03-09] MEDS: enoxaparin 40 mg/0.4 mL Syringe SUBCUT ×2 (00:46→23:07)
[2020-03-09 05:28] LABS: Basophils % 0.1 %; Hematocrit 30.9 % (42.0-52.0); Hemoglobin 9.3 g/dL (11.7-16.6); Lymphocytes # 0.6 10^3/uL (0.8-4.8); Lymphocytes % 3.7 %; Mean Corpuscular HGB Conc 30.1 g/dL (30.0-36.0); Mean Corpuscular Hemoglobin 25.7 pg (28.0-34.0); Mean Corpuscular Volume 85.4 fL (80-94); Mean Platelet Volume 11.4 fL (7.4-10.4); Monocytes # 0.1 10^3/uL (0.2-0.9); Monocytes % 0.8 %; Neutrophils # 14.73 10^3/uL (1.8-7.7); Neutrophils % 94.9 %; Nucleated Red Blood Cells % 0 %; Platelet Count 135 10^3/cmm (130-400); Red Blood Count 3.62 10^6/uL (4.1-5.3); Red Cell Distribution Width 13.8 % (12.1-15.1); White Blood Count 15.5 10^3/uL (4.0-10.0)
[2020-03-09 05:42] LABS: Alanine Aminotransferase 17 U/L (0-41); Albumin Level 4.2 g/dL (3.5-5.2); Alkaline Phosphatase 92 IU/L (40-130); Anion Gap 13.6 (5-19); Aspartate Amino Transferase 18 U/L (0-40); Blood Urea Nitrogen 16 mg/dL (8-23); Carbon Dioxide 28 mmol/L (22-29); Chloride 100 mmol/L (98-107); Creatinine Clr Calc Pharmacy 95.9471; Globulin 3.1 g/dL (1.3-4.6); Glomerular Filtration Rate 95.8 mL/min (90-130); Glucose 293 mg/dL (65-115); Osmolality Calculated 296 mOsm/kg (285-295); Potassium 4.6 mmol/L (3.5-5.1); Sodium 137 mmol/L (136-145); Total Bilirubin 0.2 mg/dL (0.15-1.2); Total Protein 7.3 g/dL (6.6-8.7)
[2020-03-09 05:52] LABS: Procalcitonin 0.23 ng/mL (0-0.5)
[2020-03-09 05:57] LABS: Calcium 9.2 mg/dL (8.5-10.5)
[2020-03-09 06:06] LABS: Glucose Point of Care 300 mg/dL (70-110)
[2020-03-09 06:23] LABS: Slide Review Slide Review Perform
[2020-03-09] MEDS: azithromycin 250 mg Tablet 500 MG PO (08:35)
[2020-03-09] MEDS: atorvastatin 40 mg Tablet PO (08:35)
[2020-03-09] MEDS: guaiFENesin 600 mg Tablet PO ×2 (08:35→17:28)
[2020-03-09] MEDS: aspirin 81 mg EC Tablet PO (08:35)
[2020-03-09] MEDS: tamsulosin 0.4 mg Capsule PO (08:35)
[2020-03-09] MEDS: pantoprazole DR 40 mg Tablet PO (08:35)
[2020-03-09] MEDS: duloxetine 20 mg Capsule 40 MG PO (08:35)
--- NOTE | 2020-03-09 13:06 | P.PN_ITS ---
Subjective Subjective: Interval history: Moses is a 70 yo male who was short of breath last night. Today he says he is feeling better since admission. He was pleasant and non-ill appearing. Medications: Reviewed: Yes Vitals/I&O/Wt Last Vital Signs Temp 98.1 F 03/09/20 11:56 Pulse 77 03/09/20 11:56 Resp 18 03/09/20 11:56 BP 121/60 03/09/20 11:56 Pulse Ox 98 03/09/20 11:56 03/08/20 03/09/20 03/09/20 22:59 06:59 14:59 Intake Total 50 / 50 440 / 440 Output Total 825 / 825 Balance 50 / 50 -825 / -775 440 / 440 Weight last 48 hrs Weight 81.647 kg Physical Exam Const: COMMON NORMALS: no acute distress and patient oriented x3 GENERAL APPEARANCE: cooperative and comfortable HENMT: COMMON NORMALS: normocephalic and atraumatic HEAD & SCALP: normocephalic and atraumatic Eye: COMMON NORMALS: EOMs intact bilaterally Neck/C-Spine: COMMON NORMALS: no JVD Resp: COMMON NORMALS: normal respiratory effort EFFORT & INSPECTION: Yes able to speak in complete sentences AUSCULTATION: diminished lung sounds Cardio: COMMON NORMALS: no JVD, regular rate, regular rhythm, S1 normal heart sound present, S2 normal heart sound present, No gallops present (Cardio), No clicks present (Cardio), No murmurs present (Cardio) and No rub (Cardio) JUGULAR VENOUS DISTENTION: no JVD RATE: regular rate RHYTHM: regular rhythm HEART SOUNDS: S1 normal heart sound present and S2 normal heart sound present Neuro: COMMON NORMALS: patient oriented x3 Data : 03/09/20 04:47 03/09/20 04:47 Micro: Microbiology 03/08/20 21:16 Blood Culture - Preliminary Blood SPECIMEN COLLECTED 03/08/20 21:11 Blood Culture - Preliminary Blood SPECIMEN COLLECTED A&P Assessment and plan (1) Community acquired pneumonia: Continue ceftriaxone and Zithromax currently Urine legionella and bacterial antigen were ordered and pending PCR Covid pending. Rapid was negative Status: Acute (2) COPD (chronic obstructive pulmonary disease): Although not wheezing currently patient reports wheezing through the night. Initiate prednisone 40 mg daily Status: Acute (3) Chronic respiratory failure with hypoxia: Appears to be improving Status: Acute Additional A&P Information Type 2 diabetes. Continue sliding scale insulin History of lung cancer GERD Allow natural Lovenox for DVT prophylaxis Suspect he can be discharged in 1 to 2 days. Attestations Medical Necessity Statement*: Needs continued hospital stay for close monitoring secondary to COPD exacerbation, IV antibiotics for clinical diagnosis of pneumonia. Coding Level of Care Code Acute Vehicle Technician for [facility] Fwd Diagnoses Community acquired pneumonia J18.9 COPD (chronic obstructive pulmonary disease) J44.9 Chronic respiratory failure with hypoxia J96.11
[2020-03-09 13:10] LABS: Glucose Point of Care 186 mg/dL (70-110)
--- NOTE | 2020-03-09 13:42 | PC.RESP ---
Patient is currently enrolled in Pulmonary Rehab.
[2020-03-09] MEDS: predniSONE 20 mg Tablet 40 MG PO (14:43)
[2020-03-09 16:44] LABS: Glucose Point of Care 212 mg/dL (70-110)
[2020-03-09 17:01] LABS: Glucose Point of Care 174 mg/dL (70-110)
[2020-03-09 21:31] LABS: Glucose Point of Care 307 mg/dL (70-110)
[2020-03-09] MEDS: cefTRIAXone 1,000 MG in sodium chloride 0.9% (plus) 50 ML 100 MG IV (21:39)
[2020-03-10 00:05] VITALS: BP 158/79; PULSE 65; RESP 18; TEMP 36.6; O2SAT 99
[2020-03-10] MEDS: HYDROcodone-acetaminophen 7.5-325 mg Tablet 1 TAB PO ×3 (00:25→12:13)
[2020-03-10 03:22] VITALS: BP 152/82; PULSE 64; RESP 17; TEMP 36.6; O2SAT 100
--- NOTE | 2020-03-10 05:04 | PC.NURSE ---
Shift summary Patient has slept through the night. Vitals are good. Patient had large bowel movement this shift.
[2020-03-10 06:17] LABS: Alanine Aminotransferase 14 U/L (0-41); Albumin Level 3.9 g/dL (3.5-5.2); Alkaline Phosphatase 84 IU/L (40-130); Anion Gap 13.6 (5-19); Aspartate Amino Transferase 15 U/L (0-40); Blood Urea Nitrogen 22 mg/dL (8-23); Calcium 9.1 mg/dL (8.5-10.5); Carbon Dioxide 29 mmol/L (22-29); Chloride 101 mmol/L (98-107); Creatinine Clr Calc Pharmacy 95.9471; Globulin 3.3 g/dL (1.3-4.6); Glomerular Filtration Rate 111.8 mL/min (90-130); Glucose 240 mg/dL (65-115); Osmolality Calculated 299 mOsm/kg (285-295); Potassium 4.6 mmol/L (3.5-5.1); Sodium 139 mmol/L (136-145); Total Bilirubin 0.2 mg/dL (0.15-1.2); Total Protein 7.2 g/dL (6.6-8.7)
[2020-03-10 06:33] LABS: Glucose Point of Care 265 mg/dL (70-110)
[2020-03-10 07:45] VITALS: BP 163/83; PULSE 68; RESP 18; TEMP 36.4; O2SAT 100
[2020-03-10 08:01] LABS: Basophils % 0.2 %; Hematocrit 31.9 % (42.0-52.0); Hemoglobin 9.5 g/dL (11.7-16.6); Lymphocytes # 0.6 10^3/uL (0.8-4.8); Lymphocytes % 5.4 %; Mean Corpuscular HGB Conc 29.8 g/dL (30.0-36.0); Mean Corpuscular Hemoglobin 25.5 pg (28.0-34.0); Mean Corpuscular Volume 85.8 fL (80-94); Mean Platelet Volume 10.7 fL (7.4-10.4); Monocytes # 0.4 10^3/uL (0.2-0.9); Monocytes % 3.7 %; Neutrophils # 10.39 10^3/uL (1.8-7.7); Neutrophils % 90.2 %; Nucleated Red Blood Cells % 0 %; Platelet Count 171 10^3/cmm (130-400); Red Blood Count 3.72 10^6/uL (4.1-5.3); White Blood Count 11.5 10^3/uL (4.0-10.0)
[2020-03-10 08:27] LABS: Slide Review Slide Review Perform
[2020-03-10] MEDS: tamsulosin 0.4 mg Capsule PO (08:48)
[2020-03-10] MEDS: aspirin 81 mg EC Tablet PO (08:48)
[2020-03-10] MEDS: predniSONE 20 mg Tablet 40 MG PO (08:48)
[2020-03-10] MEDS: guaiFENesin 600 mg Tablet PO (08:48)
[2020-03-10] MEDS: pantoprazole DR 40 mg Tablet PO (08:49)
[2020-03-10] MEDS: neomycin-poly-dex Op oint 3.5 gm 1 APPLIC EYE-LEFT (08:49)
[2020-03-10] MEDS: atorvastatin 40 mg Tablet PO (08:49)
[2020-03-10] MEDS: duloxetine 20 mg Capsule 40 MG PO (09:23)
[2020-03-10] MEDS: azithromycin 250 mg Tablet 500 MG PO (09:23)
[2020-03-10 10:45] VITALS: PULSE 80; RESP 18; O2SAT 99
[2020-03-10 10:55] LABS: Glucose Point of Care 208 mg/dL (70-110)
[2020-03-10 11:39] VITALS: BP 149/70; PULSE 65; RESP 18; TEMP 36.6; O2SAT 100
--- NOTE | 2020-03-10 12:18 | P.DS_ITS ---
Discharge Providers Date of Admission: 03/08/20 21:57 Date of Discharge: March 10, 2020 Attending Provider at Admission: Sherri Mendoza MD Attending Provider at Discharge: Celso Marquis MD Primary Care Provider: Rossana Ruggiero MD Diagnoses at Discharge Discharge Diagnosis (1) Community acquired pneumonia: Status: Acute (2) COPD (chronic obstructive pulmonary disease): Status: Acute (3) Chronic respiratory failure with hypoxia: Status: Acute Reason for Visit Reason for Visit: SOB Hospital Course Hospital Course This is a 70-year-old male, with stage D COPD, previous history of lung cancer status post right lower lobe lobectomy, history of chronic hypoxic respiratory failure, 4 L oxygen, who presents to [facility] due to complaints of low-grade fevers, cough Patient was admitted to [facility] for acute on chronic hypoxic respiratory failure secondary to community-acquired pneumonia, admitted to the general medical floors, received broad-spectrum antibiotics, steroid therapy, clinically monitored. Patient clinically improved, remained afebrile, normotensive, on 4 to 5 L nasal cannula, all cultures so far have been unremarkable. I have discharged the patient on Levaquin for 5 remaining days, steroid burst, and on his home 4 to 5 L nasal cannula, inhalers therapy. Patient's Covid PCR is pending on discharge, patient was advised to continue to socially isolate, self distance, wear a mask, until PCR comes back negative. Patient was advised if he were to have recurrent fevers, chills, cough, shortness of breath to come back to emergency room. Physical Exam Const: COMMON NORMALS: no acute distress and patient oriented x3 HENMT: COMMON NORMALS: normocephalic HEAD & SCALP: normocephalic Neck/C-Spine: COMMON NORMALS: no JVD Resp: COMMON NORMALS: normal respiratory effort, No retractions, No use of accessory muscles and clear to auscultation bilaterally AUSCULTATION: clear to auscultation bilaterally Cardio: COMMON NORMALS: no JVD, regular rate, regular rhythm, S1 normal heart sound present and S2 normal heart sound present RATE: regular rate RHYTHM: regular rhythm HEART SOUNDS: S1 normal heart sound present and S2 normal heart sound present GI: COMMON NORMALS: Normal to inspection, nondistended, normoactive bowel sounds present, Soft to palpation, non-tender, No hepatosplenomegaly present, no masses and no bruits PALPATION: Yes Soft to palpation and Yes No hepatosplenomegaly present Extremity: COMMON NORMALS: capillary refill normal, no clubbing, cyanosis or edema, no calf tenderness and no pedal edema Neuro: COMMON NORMALS: patient oriented x3 Discharge Data Data Completed and Pending: Completed Studies During Hospitalization Category Date Time Status XR chest 1V eugene ble [id number] Urgent Exams 03/08/20 20:17 Completed Pending at discharge Category Date Time Status Blood Culture Sta t Lab 03/08/20 21:16 Results CMP [Comprehensiv e Metabolic Panel] AM LABS Lab 03/11/20 04:00 Ordered Complete Blood Co unt w/Auto AM LABS Lab 03/11/20 04:00 Ordered Coronavirus Lab T est PTC Routine Lab 03/08/20 23:18 Received Labs from last 24 hours 03/10/20 03/10/20 03/10/20 10:51 07:29 06:15 WBC 11.5 H Corrected WBC RBC 3.72 L Hgb 9.5 L Hct 31.9 L MCV 85.8 MCH 25.5 L MCHC 29.8 L RDW 14.0 Plt Count 171 MPV 10.7 H Gran % Neut % (Auto) 90.2 Lymph % (Auto) 5.4 [place] % (Auto) 3.7 Eos % (Auto) 0.0 Baso % (Auto) 0.2 Neut # (Auto) 10.39 H Lymph # (Auto) 0.6 L [place] # (Auto) 0.4 Eos # (Auto) 0.0 Baso # (Auto) 0.0 Absolute Gran (aut o) Nucleated RBC % (a uto) 0 Nucleated RBCs # 0.0 Sodium Potassium Chloride Carbon Dioxide Anion Gap BUN Creatinine GFR Calculation Glucose POC Glucose 208 265 Calculated Osmolal ity Calcium Total Bilirubin AST ALT Alkaline Phosphata se Total Protein Albumin Globulin 03/10/20 03/10/20 03/09/20 05:17 05:17 21:28 WBC Cancelled Corrected WBC Cancelled RBC Cancelled Hgb Cancelled Hct Cancelled MCV Cancelled MCH Cancelled MCHC Cancelled RDW Cancelled Plt Count Cancelled MPV Cancelled Gran % Cancelled Neut % (Auto) Cancelled Lymph % (Auto) Cancelled [place] % (Auto) Cancelled Eos % (Auto) Cancelled Baso % (Auto) Cancelled Neut # (Auto) Cancelled Lymph # (Auto) Cancelled [place] # (Auto) Cancelled Eos # (Auto) Cancelled Baso # (Auto) Cancelled Absolute Gran (aut o) Cancelled Nucleated RBC % (a uto) Cancelled Nucleated RBCs # Cancelled Sodium 139 Potassium 4.6 Chloride 101 Carbon Dioxide 29 Anion Gap 13.6 BUN 22 Creatinine 0.7 GFR Calculation 111.8 Glucose 240 H POC Glucose 307 Calculated Osmolal ity 299 H Calcium 9.1 Total Bilirubin 0.2 AST 15 ALT 14 Alkaline Phosphata se 84 Total Protein 7.2 Albumin 3.9 Globulin 3.3 03/09/20 03/09/20 03/09/20 16:50 13:07 10:15 WBC Corrected WBC RBC Hgb Hct MCV MCH MCHC RDW Plt Count MPV Gran % Neut % (Auto) Lymph % (Auto) [place] % (Auto) Eos % (Auto) Baso % (Auto) Neut # (Auto) Lymph # (Auto) [place] # (Auto) Eos # (Auto) Baso # (Auto) Absolute Gran (aut o) Nucleated RBC % (a uto) Nucleated RBCs # Sodium Potassium Chloride Carbon Dioxide Anion Gap BUN Creatinine GFR Calculation Glucose POC Glucose 174 186 212 Calculated Osmolal ity Calcium Total Bilirubin AST ALT Alkaline Phosphata se Total Protein Albumin Globulin Vitals: Last Vital Signs Temp 97.9 F 03/10/20 11:39 Pulse 65 03/10/20 11:39 Resp 18 03/10/20 11:39 BP 149/70 03/10/20 11:39 Pulse Ox 100 03/10/20 11:39 Discharge Plan Discharge Patient Disposition: Home Condition: Stable Prescriptions: New prednisone 20 mg tablet 20 mg PO BID 5 Days Qty: 10 RF: 0 levofloxacin 750 mg tablet 750 mg PO DAILY 5 Days Qty: 5 RF: 0 Continued [place] 7.5-325 mg tablet 1 tab PO .5 times a day PRN (Reason: Pain) 30 Days Qty: 150 RF: 0 naproxen sodium 220 mg capsule 220 mg PO BID PRN (Reason: Pain) 90 Days Qty: 180 RF: 1 ktrhklicnhu-wjzslnijl-uiarvcau [Trelegy Ellipta] 100-62.5-25 mcg blister with device See Rx Instructions .ROUTE .COMPLEX Qty: 60 RF: 3 rosuvastatin 10 mg tablet 10 mg PO DAILY RF: 0 Trelegy Ellipta 100-62.5-25 mcg blister with device See Rx Instructions .ROUTE .COMPLEX RF: 0 alendronate 70 mg Tablet See Rx Instructions .ROUTE .COMPLEX RF: 0 multivitamin Tablet 1 tab PO DAILY RF: 0 aspirin [Aspir-Low] 81 mg Tablet,Delayed Release (Dr/Ec) 81 mg PO DAILY RF: 0 tamsulosin 0.4 mg Capsule 0.4 mg PO DAILY RF: 0 albuterol sulfate [Ventolin HFA] 90 mcg/actuation Hfa Aerosol Inhaler See Rx Instructions .ROUTE .COMPLEX RF: 0 metformin 750 mg Tablet Extended Release 24 Hr 750 mg PO BID RF: 0 guaifenesin [Mucinex] 600 mg Tablet Extended Release 12hr 600 mg PO BID RF: 0 felodipine 5 mg Tablet Extended Release 24 Hr 5 mg PO DAILY RF: 0 omeprazole 40 mg Capsule,Delayed Release(Dr/Ec) 40 mg PO DAILY RF: 0 Januvia 100 mg Tablet 100 mg PO DAILY RF: 0 duloxetine 40 mg Capsule, Delayed Rel Sprinkle 40 mg PO DAILY RF: 0 Discharge Orders: Discharge Order (Routine); Ordered 03/10/20 Ordered By: Celso Marquis Referrals: Rossana Ruggiero MD [Primary Care Provider] - 4-7 days (Please call Sergei Lowry on Sunday 03/11 and make an appointment to follow up with Dr. Ruggiero within 4-7 days.) Discharge Diet: Regular Discharge Activity: Resume usual activity Patient Instructions: Prednisone (By mouth), Levofloxacin (By mouth), Chronic Obstructive Pulmonary Disease (DC), Pneumonia (DC), COPD Stoplight Discharge Attestations Time Spent in Discharge Care*: less than 30 min Quality Metrics Clinical Quality Measures During this hospital stay, did patient experience: None Coding Level of Care Code Acute Punch Card Operator for g Fwd Diagnoses Community acquired pneumonia J18.9 COPD (chronic obstructive pulmonary disease) J44.9 Chronic respiratory failure with hypoxia J96.11
[2020-03-10 13:58] VITALS: BP 149/70; PULSE 65; RESP 18; TEMP 36.6; O2SAT 100
[2020-03-10 14:34] LABS: Coronavirus Lab Test PTC Negative
== END 2020-03-10 13:30 | disposition home or self-care (01) | DRG 193 ==
LOC: ER 22:01 → MEDSURG 22:37
PROVIDERS: Internal Medicine; Admitting Provider Student in an Organized Health Care Education/Training Program; Emergency Provider Emergency Medicine; PCP Family Medicine; Visit Provider Family Medicine
DX: J18.9 Pneumonia, unspecified organism (principal); J96.21 Acute and chronic respiratory failure with hypoxia; J44.0 Chronic obstructive pulmonary disease with (acute) lower respiratory infection; Z85.118 Personal history of other malignant neoplasm of bronchus and lung; Z90.2 Acquired absence of lung [part of]; Z99.81 Dependence on supplemental oxygen; K21.9 Gastro-esophageal reflux disease without esophagitis; M54.5 Low back pain; Z79.891 Long term (current) use of opiate analgesic; E11.9 Type 2 diabetes mellitus without complications; Z98.1 Arthrodesis status; Z87.891 Personal history of nicotine dependence; Z66 Do not resuscitate; Z79.84 Long term (current) use of oral hypoglycemic drugs
CPT/HCPCS: 12345; 36415; 36416; 71045; 80053; 82962; 83605; 83880; 84145; 85025; 86403; 87040; 87426; 87449; 87635; 87804; 93005; 96372; 96375; 99283; J0456; J0696; J1650; J1815; J2930; J7050; J7512; Q0144

== ENCOUNTER 2020-03-16 13:03 | Outpatient (CLI) | payer MEDICARE, MEDICAID, SELFPAY ==
[2020-03-16 13:33] LABS: Basophils % 0.2 %; Eosinophils # 0.1 10^3/uL (0.0-0.8); Hematocrit 32.4 % (42.0-52.0); Hemoglobin 9.9 g/dL (11.7-16.6); Lymphocytes # 0.8 10^3/uL (0.8-4.8); Lymphocytes % 6.2 %; Mean Corpuscular HGB Conc 30.6 g/dL (30.0-36.0); Mean Corpuscular Hemoglobin 25.4 pg (28.0-34.0); Mean Corpuscular Volume 83.1 fL (80-94); Mean Platelet Volume 10.9 fL (7.4-10.4); Monocytes # 0.5 10^3/uL (0.2-0.9); Monocytes % 3.5 %; Neutrophils # 11.69 10^3/uL (1.8-7.7); Neutrophils % 88.3 %; Nucleated Red Blood Cells % 0 %; Platelet Count 108 10^3/cmm (130-400); Red Cell Distribution Width 13.8 % (12.1-15.1); White Blood Count 13.2 10^3/uL (4.0-10.0)
[2020-03-16 14:04] LABS: Alanine Aminotransferase 15 U/L (0-41); Albumin Level 4.2 g/dL (3.5-5.2); Alkaline Phosphatase 79 IU/L (40-130); Anion Gap 17.5 (5-19); Aspartate Amino Transferase 9 U/L (0-40); Blood Urea Nitrogen 23 mg/dL (8-23); Calcium 9.8 mg/dL (8.5-10.5); Carbon Dioxide 27 mmol/L (22-29); Chloride 97 mmol/L (98-107); Glomerular Filtration Rate 74.1 mL/min (90-130); Glucose 319 mg/dL (65-115); Osmolality Calculated 300 mOsm/kg (285-295); Potassium 4.5 mmol/L (3.5-5.1); Sodium 137 mmol/L (136-145); Total Bilirubin 0.2 mg/dL (0.15-1.2); Total Protein 7.2 g/dL (6.6-8.7)
== END 2020-03-16 13:04 | disposition home or self-care (01) ==
PROVIDERS: PCP Family Medicine; Visit Provider Internal Medicine Hematology & Oncology
DX: Z85.118 Personal history of other malignant neoplasm of bronchus and lung (principal)
CPT/HCPCS: 80053; 85025

== ENCOUNTER 2020-03-17 05:32 | Outpatient (CLI) | payer MEDICARE, MEDICAID, SELFPAY ==
--- NOTE | 2020-03-17 10:09 | ONC FU_ITS ---
Dr. Yo follow up note Patient: Moses Cardoza Unit #: [id number]: 1950 Dicatated By: Hussein Yo M.D.Date of Visit:Mar 17, 2020 Onc Med Follow-up/Prog Note History of Present Illness: Mr. Moses Cardoza, 70-year-old gentleman with history of emphysema now on home oxygen, underwent right lower lobectomy on 10/06/2014 for localized squamous cell carcinoma. Postop period was complicated with pleural effusion for which he underwent decortication. Now with no evidence of disease as per last CT scan of abdomen pelvis done on 01/20/2016 in [facility]. As per patient no further treatment was offered as it was a early stage disease and he was followed by medical oncologist and thoracic surgeon there at [facility] in [place]. CT scan of the chest done on 07/15/2017 showed no evidence of residual recurrence of disease CT scan of chest done on 06/17/2018 showed no evidence of residual, recurrent or metastatic disease. Severe chronic emphysema, stable postoperative changes from prior right lower lobectomy. Follow-up CT scan of chest done on 02/18/2019 showed post operative changes due to right lower lobectomy, no evidence of residual or recurrence of disease CT scan of chest done on February 17, 2020 showed right lower lobe lobectomy with chronic changes negative for acute cardiopulmonary disease Came for follow-up, denies any specific complaints, no fever chills, no nausea or vomiting, no diarrhea or constipation, no hemoptysis or hematemesis, no melena or hematochezia, no chest pain no palpitation, no worsening of mild/moderate weakness. He is on home oxygen for severe emphysema/COPD Medications: Acetaminophen Capsule Oral PRN, Albuterol Sulfate HFA Aerosol, solution Inhalation PRN, Alendronate Sodium 1 Tablet (of 70 mg/75mL) Solution Oral q 7 days, Aleve 1 (220 mg) Tablet Oral PRN, Aspirin 1 (81 mg) Tablet, enteric coated Oral daily, Calcium 1 (600 mg) Tablet Oral b.i.d., Crestor 1 (10 mg) Tablet Oral at bedtime, DULoxetine HCl 1 (30 mg) Capsule Delayed Release Particles Oral daily, Fosamax 1 (70 mg) Tablet Oral q 7 days, Hydrocodone-Acetaminophen 1 (7.5-325 mg) Tablet Oral four times a day PRN, Lexapro 1 (20 mg) Tablet Oral daily, MetFORMIN HCl ER 1 (750 mg) Tablet SR 24 HR Oral daily, MethIMAzole 2 Tablet (of 10 mg) Oral daily, Mucinex DM 1 (30-600 mg) Tablet SR 12 HR Oral b.i.d., Multivitamin Adult 1 Tablet Oral daily, Pepcid 1 (20 mg) Tablet Oral daily PRN, Senna 1 (8.6 mg) Capsule Oral b.i.d., Stiolto Respimat 1 Puff(s) (of 2.5-2.5 mcg/act) Aerosol, solution Inhalation daily, Symbicort 2 puff(s) (of 80-4.5 mcg/act) Aerosol Inhalation b.i.d., Tamsulosin HCl 1 (0.4 mg) Capsule Oral daily, TraMADol HCl 1 (50 mg) Tablet Oral q 12 hours Allergies: No Known Allergies. Review of Systems: Constitutional - His energy level is low. Appetite is good and weight is stable. No fever, chills, hot flashes, or night sweats, ENMT - No sinus drainage. No mouth sores. No sore throat or difficulty swallowing, Hematologic/Lymphatic - No abnormal bruising or bleeding, Respiratory - He has shortness of breath and wears portable oxygen. No cough. No pleuritic pain, Cardiovascular - No angina pain, Gastrointestinal - No nausea or vomiting. No heartburn. No diarrhea or constipation. No blood in the stool or black stools, Genitourinary (M) - No dysuria or hematuria. No urinary frequency. No urgency or incontinence, Musculoskeletal - He has back pain occasionally, Neurologic - No headache or dizziness. He has numbness in his feet occasionally, Psychiatric - No anxiety or depression. No insomnia. Vital Signs: Performed on Mar 17, 2020 09:13 Height - 70.00 in Weight - 200.8 lbs (LOW) BSA - 2.09 sq.m BMI - 28.81 Temperature - 97.2 F (LOW) Pulse - 98 /min Respiration - 24 /min BP - 127/71 mm(hg) O2 Sat - 97 % Pain - 0 Performance Status: 1 - No physically strenuous activity, but ambulatory and able to carry out light or sedentary work (e.g. office work, light house work). (ECOG) Physical Examination: ENMT - No mouth sores, no thrush, no jaundice, Respiratory - Lungs are clear to auscultation, Cardiovascular - Regular rate and rhythm of heart, Abdomen - Soft, bowel sounds present, Extremities - No visible edema or rash. Lab/Imaging: Most recent lab results are not available for this patient. 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 Size of tumor 4 x 3.8 x 2.9 cm, moderately to poorly differentiated, no pleural involvement tumor was present within 1-2 mm of inked pleural margin however all margins were clear no lymphovascular invasion seen pT2a 12 mediastinal lymph nodes were removed showed no evidence of metastatic disease N0 Mx stage IB Now being observed CT scan of chest done on 01/20/2016 at [facility] in [facility] showed volume loss noted within the right hemithorax with small right-sided pleural effusion, these are thought to be postsurgical changes, centrilobular emphysematous changes are noted with minimal scarring/atelectasis in the right middle lobe CT scan of the chest done on 07/15/2017 showed no evidence of residual or recurrent or metastatic neoplasm, status post right lower lobectomy with associated postoperative changes, severe chronic emphysematous CT scan of chest done on 06/17/2018 showed no evidence of recurrent or residual disease, postoperative changes from prior right lower lobectomy, severe emphysema Plan: Discussed with patient regarding his labs white blood count 13.2 hemoglobin 9.9 hematocrit 32.4 platelets 108,000, MCV 83.1 CMP within normal limit except glucose 319 and follow-up CT scan of chest findings, which showed no evidence of recurrence of disease Clinically, patient is doing well with no new signs symptoms history of recurrence of disease and his follow-up CT scan of chest confirmed that. His follow-up lab work showed worsening of mild anemia now hemoglobin is 9.9 g compared to 11.5 g on February 20, 2019. As per patient he was in the hospital recently with COPD exacerbation so drop in his hemoglobin could be due to diagnostic phlebotomy or considering his comorbid condition and his age underlying myelodysplasia cannot be ruled out especially with persistent mild thrombocytopenia At this point will consider anemia work-up including iron studies, B12, folic acid, reticulocyte count and then patient return to clinic in 1 month with CBC if his anemia work-up remained inconclusive and there is a worsening of anemia or thrombocytopenia, will consider bone marrow evaluation to rule out underlying myelodysplasia. Signed By: Hussein Yo M.D. <<Signature on File>>
[2020-03-18] LABS: Ferritin 19 ng/mL (30-400); Iron 55 ug/dL (59-158); Percent Saturation 13.5 % (20-50); Total Iron Binding Capacity 405 mcg/dl; Unsaturated Iron Binding 350 ug/dL (112-347)
[2020-03-18 10:45] LABS: Vitamin B12 487 pg/mL (232-1245)
== END 2020-03-17 05:33 | disposition home or self-care (01) ==
LOC: ONCMED 05:35
PROVIDERS: PCP Family Medicine; Visit Provider Internal Medicine Hematology & Oncology
DX: Z08 Encounter for follow-up examination after completed treatment for malignant neoplasm (principal); Z85.118 Personal history of other malignant neoplasm of bronchus and lung; J90 Pleural effusion, not elsewhere classified; J43.9 Emphysema, unspecified; J98.11 Atelectasis; D69.6 Thrombocytopenia, unspecified
CPT/HCPCS: 82607; 82728; 83540; 83550; 85045; 99214

== ENCOUNTER → 2020-03-18 12:47 | Outpatient (BNVA) | payer MEDICARE, MEDICAID, SELFPAY | PROVIDERS: PCP Family Medicine; Visit Provider Anesthesiology | DX: M54.42 Lumbago with sciatica, left side (principal); M54.41 Lumbago with sciatica, right side; Z79.891 Long term (current) use of opiate analgesic | CPT/HCPCS: 99212; 99214 ==

== ENCOUNTER 2020-04-18 08:54 | Outpatient (CLI) | payer MEDICARE, MEDICAID, SELFPAY ==
[2020-04-18 09:30] LABS: Basophils % 0.5 %; Eosinophils # 0.2 10^3/uL (0.0-0.8); Eosinophils % 1.9 %; Hematocrit 32.9 % (42.0-52.0); Hemoglobin 9.6 g/dL (11.7-16.6); Lymphocytes # 1.5 10^3/uL (0.8-4.8); Lymphocytes % 18.3 %; Mean Corpuscular HGB Conc 29.2 g/dL (30.0-36.0); Mean Corpuscular Volume 85.7 fL (80-94); Mean Platelet Volume 11.1 fL (7.4-10.4); Monocytes # 0.5 10^3/uL (0.2-0.9); Monocytes % 6.1 %; Neutrophils # 5.86 10^3/uL (1.8-7.7); Neutrophils % 72.8 %; Nucleated Red Blood Cells % 0 %; Platelet Count 162 10^3/cmm (130-400); Red Blood Count 3.84 10^6/uL (4.1-5.3)
== END 2020-04-18 08:55 | disposition home or self-care (01) ==
LOC: ONCMED 08:57
PROVIDERS: PCP Family Medicine; Visit Provider Internal Medicine Hematology & Oncology
DX: Z85.118 Personal history of other malignant neoplasm of bronchus and lung (principal)
CPT/HCPCS: 36591; 85025

== ENCOUNTER 2020-04-19 05:55 | Outpatient (CLI) | payer MEDICARE, MEDICAID, SELFPAY ==
--- NOTE | 2020-04-19 10:33 | ONC FU_ITS ---
Dr. Yo follow up note Patient: Moses Cardoza Unit #: [id number]: 1950 Dicatated By: Hussein Yo M.D.Date of Visit:Apr 19, 2020 Onc Med Follow-up/Prog Note History of Present Illness: Mr. Moses Cardoza, 70-year-old gentleman with history of emphysema now on home oxygen, underwent right lower lobectomy on 10/06/2014 for localized squamous cell carcinoma. Postop period was complicated with pleural effusion for which he underwent decortication. Now with no evidence of disease as per last CT scan of abdomen pelvis done on 01/20/2016 in [facility]. As per patient no further treatment was offered as it was a early stage disease and he was followed by medical oncologist and thoracic surgeon there at [facility] in [place]. CT scan of the chest done on 07/15/2017 showed no evidence of residual recurrence of disease CT scan of chest done on 06/17/2018 showed no evidence of residual, recurrent or metastatic disease. Severe chronic emphysema, stable postoperative changes from prior right lower lobectomy. Follow-up CT scan of chest done on 02/18/2019 showed post operative changes due to right lower lobectomy, no evidence of residual or recurrence of disease CT scan of chest done on February 17, 2020 showed right lower lobe lobectomy with chronic changes negative for acute cardiopulmonary disease He is on home oxygen for severe emphysema/COPD Came for follow-up, denies any specific complaint except generalized weakness and fatigue, no nausea or vomiting, no diarrhea or constipation but off and on dark-colored stools.No melena or hematochezia, no hemoptysis or hematemesis No abdominal pain, no jaundice, no chest pain, no palpitation at rest, patient is on home oxygen. Medications: Acetaminophen Capsule Oral PRN, Albuterol Sulfate HFA Aerosol, solution Inhalation PRN, Alendronate Sodium 1 Tablet (of 70 mg/75mL) Solution Oral q 7 days, Aleve 1 (220 mg) Tablet Oral PRN, Aspirin 1 (81 mg) Tablet, enteric coated Oral daily, Calcium 1 (600 mg) Tablet Oral b.i.d., Crestor 1 (10 mg) Tablet Oral at bedtime, DULoxetine HCl 1 (30 mg) Capsule Delayed Release Particles Oral daily, Fosamax 1 (70 mg) Tablet Oral q 7 days, Hydrocodone-Acetaminophen 1 (7.5-325 mg) Tablet Oral four times a day PRN, Lexapro 1 (20 mg) Tablet Oral daily, MetFORMIN HCl ER 1 (750 mg) Tablet SR 24 HR Oral daily, MethIMAzole 2 Tablet (of 10 mg) Oral daily, Mucinex DM 1 (30-600 mg) Tablet SR 12 HR Oral b.i.d., Multivitamin Adult 1 Tablet Oral daily, Pepcid 1 (20 mg) Tablet Oral daily PRN, Senna 1 (8.6 mg) Capsule Oral b.i.d., Stiolto Respimat 1 Puff(s) (of 2.5-2.5 mcg/act) Aerosol, solution Inhalation daily, Symbicort 2 puff(s) (of 80-4.5 mcg/act) Aerosol Inhalation b.i.d., Tamsulosin HCl 1 (0.4 mg) Capsule Oral daily, TraMADol HCl 1 (50 mg) Tablet Oral q 12 hours Allergies: No Known Allergies. Review of Systems: Constitutional - His energy level is low. Appetite is good and weight is stable. No fever, chills, hot flashes, or night sweats, ENMT - No sinus drainage. No mouth sores. No sore throat or difficulty swallowing, Hematologic/Lymphatic - No abnormal bruising or bleeding, Respiratory - He has shortness of breath and wears portable oxygen. No cough. No pleuritic pain, Cardiovascular - No angina pain, Gastrointestinal - No nausea or vomiting. No heartburn. No diarrhea or constipation. No blood in the stool or black stools, Genitourinary (M) - No dysuria or hematuria. No urinary frequency. No urgency or incontinence, Musculoskeletal - He has back pain, Neurologic - No headache or dizziness. He has numbness in his feet occasionally, Psychiatric - No anxiety or depression. No insomnia. Vital Signs: Performed on Apr 19, 2020 10:01 Height - 70.00 in Weight - 202.0 lbs (HIGH) BSA - 2.10 sq.m BMI - 28.98 Temperature - 98.5 F Pulse - 129 /min (HIGH) Respiration - 20 /min BP - 132/67 mm(hg) O2 Sat - 94 % (LOW) Pain - 8 Performance Status: 1 - No physically strenuous activity, but ambulatory and able to carry out light or sedentary work (e.g. office work, light house work). (ECOG) Physical Examination: ENMT - No mouth sores, no thrush, no jaundice, Respiratory - Poor air entry, mild wheezing bilaterally, Cardiovascular - Regular rate and rhythm of heart, Abdomen - Soft, bowel sounds present, Extremities - No visible edema. Lab/Imaging: Test performed on Mar 16, 2020 13:13 Ferritin 19 ng/mL Iron 55 mcg/dL Sodium 137 mmol/L Vitamin B12 487 pg/mL Iron Binding Capacity (TIBC) 405 mcg/dl Potassium 4.5 mmol/L % Iron Saturation 13.5 % Chloride 97 mmol/L CO2 27 mmol/L UIBC 350 mcg/dL Anion Gap 17.5 BUN 23 mg/dL Creatinine 1.0 mg/dL Cr Clearance (Est) 89.82 mL/min eGFR 74.1 mL/min Glucose 319 mg/dL Osmolality - Calculated 300 mOsm/kg Calcium 9.8 mg/dL Protein, Total 7.2 g/dL Albumin 4.2 g/dL Globulin 3.0 g/dL Bilirubin, Total 0.2 mg/dL ALT (SGPT) 15 U/L AST (SGOT) 9 U/L Alkaline Phosphatase 79 IU/L Retic Count % 1.7000 % WBC 13.2 10 3/uL RBC 3.90 10 6/uL HGB 9.9 g/dL HCT 32.4 % MCV 83.1 fL MCH 25.4 pg MCHC 30.6 g/dL RDW 13.8 % Platelet Count 108 10 3/cmm MPV 10.9 fL Neutrophils 11.69 10 3/uL Lymphocytes 0.8 10 3/uL Monocytes 0.5 10 3/uL Eosinophils 0.1 10 3/uL Basophils 0.0 10 3/uL Neutrophil % 88.3 % Lymphocyte % 6.2 % Monocyte % 3.5 % Eosinophil % 1.0 % Basophils % 0.2 % NRBC % 0 % Impression: 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 Size of tumor 4 x 3.8 x 2.9 cm, moderately to poorly differentiated, no pleural involvement tumor was present within 1-2 mm of inked pleural margin however all margins were clear no lymphovascular invasion seen pT2a 12 mediastinal lymph nodes were removed showed no evidence of metastatic disease N0 Mx stage IB Now being observed CT scan of chest done on 01/20/2016 at [facility] in [facility] showed volume loss noted within the right hemithorax with small right-sided pleural effusion, these are thought to be postsurgical changes, centrilobular emphysematous changes are noted with minimal scarring/atelectasis in the right middle lobe CT scan of the chest done on 07/15/2017 showed no evidence of residual or recurrent or metastatic neoplasm, status post right lower lobectomy with associated postoperative changes, severe chronic emphysematous CT scan of chest done on 06/17/2018 showed no evidence of recurrent or residual disease, postoperative changes from prior right lower lobectomy, severe emphysema Iron deficiency anemia diagnosed on done before 2020, started on oral iron Plan: Discussed with patient regarding his labs white blood count 8 hemoglobin 9.6 compared to 9.9 g on March 16, 2020 hematocrit 32.9 platelets 162,000 compared to 108,000 on March 16, 2020 and MCV 85.7, anemia work-up showed iron saturation 13.5%, ferritin 19, iron 55, TIBC 405, B12 487, reticulocyte count 1.7 Clinically, patient doing reasonably well but with persistent moderate iron deficiency anemia as initial anemia work-up confirmed iron deficiency, with normal B12 level. Because of iron deficiency anemia could be chronic GI bleeding, patient said he has history of dark-colored stools, in the past he was treated with oral iron. As per patient last EGD/colonoscopy was done for 5 years ago. Because of dark-colored stools and now with progressive iron deficiency anemia, will consider referral for EGD and colonoscopy and patient was advised to start oral iron supplement and then return to clinic in 1 month with CBC and iron studies if there is no improvement, may consider parenteral iron. Signed By: Hussein Yo M.D. <<Signature on File>>
== END 2020-04-19 05:56 | disposition home or self-care (01) ==
LOC: ONCMED 05:57
PROVIDERS: PCP Family Medicine; Visit Provider Internal Medicine Hematology & Oncology
DX: Z08 Encounter for follow-up examination after completed treatment for malignant neoplasm (principal); Z85.118 Personal history of other malignant neoplasm of bronchus and lung; J43.9 Emphysema, unspecified; J90 Pleural effusion, not elsewhere classified; D50.9 Iron deficiency anemia, unspecified; Z79.899 Other long term (current) drug therapy
CPT/HCPCS: 99214

== ENCOUNTER → 2020-05-05 11:52 | Outpatient (BNVA) | payer MEDICARE, MEDICAID, SELFPAY | PROVIDERS: PCP Family Medicine; Visit Provider Surgery | DX: Z01.812 Encounter for preprocedural laboratory examination (principal) | CPT/HCPCS: 87635 ==

== ENCOUNTER 2020-05-10 10:17 | Day surgery (SDC) | payer MEDICARE, MEDICAID, SELFPAY ==
[2020-05-06 13:08] VITALS: BMI 25.1
[2020-05-10 10:54] VITALS: BP 153/75; PULSE 77; RESP 18; TEMP 36.4; O2SAT 99
[2020-05-10 10:55] LABS: Glucose Point of Care 315 mg/dL (70-110)
[2020-05-10] MEDS: sodium chloride 0.9% 1,000 ML 30 ML IV (10:55)
--- NOTE | 2020-05-10 11:26 | P.ANESASSM_ITS ---
Pre-Anesthetic Assessment Pre-Anesthetic Assessment: Height/Weight: Height 1.8 m Weight 81.647 kg Temp Pulse Resp BP Pulse Ox 97.6 F 77 18 153/75 99 05/10/20 10:54 05/10/20 10:54 05/10/20 10:54 05/10/20 10:54 05/10/20 10:54 Preop Diagnosis: panendoscopy Proposed Procedure: Operation Date: 05/10/20 11:30 Proposed Procedures p EGD/colon 18338 02321 D64.9 K92.1(Not Applicable) - Ender Richards MD s Colonoscopy(Not Applicable) - Ender Richards MD Was Beta Deniz taken within 24 hours: N/A Last intake: Intake Last Liquid Date 05/09/20 Last Liquid Time 22:00 Last Solid Date 05/08/20 Last Solid Time 18:00 Social: Social History: Tobacco and No alcohol Exam: Pre-Anes Outpt Exam: alert, oriented x 3 and regular rate & rhythm Additional Exam Findings (including area of procedure): rhonchi Airway: Submandibular: WNL Cervical ROM: WNL Dentition: False Pulmonary: Pulmonary: COPD CV/HEM: CV/HEM: HTN Metabolic: Metabolic: DM (Poorly controlled) Anesthetic Plan: ASA status: 3 Anesthesia: MAC Risk of > 500 ml blood loss (7ml/kg in children): No Meds/Allergies Current Medications: Current Medications Generic Name Dose Route Start Last Admin Trade Name Freq PRN Reason Stop Dose Admin Sodium Chloride 1,000 mls @ 30 ml s/hr 05/10/20 10:30 05/10/20 10:55 Sodium Chloride 0.9% IV 05/11/20 10:29 30 mls/hr .Q24H CÉSAR Administration PFSH Anesthesia PFSH: Medical History (Updated 04/26/20 @ 15:21 by Ender Rihcards MD) COPD (chronic obstructive pulmonary disease) GERD (gastroesophageal reflux disease) Low back pain of over 3 months duration Lung cancer Type 2 diabetes mellitus Surgical History (Updated 04/26/20 @ 15:21 by Ender Richards MD) H/O esophagogastroduodenoscopy History of lobectomy of lung right lung-Dr. Hwang -[place] Hx of cholecystectomy Hx of eye surgery bilat-Dr. Navarrete did right and Dr. Perez in [place] Hx of kyphoplasty 07/05/[address] Powell Status post colonoscopy Family History Brother Cancer Diabetes Heart disease Social History Smoking and tobacco status: former smoker Quit status (tobacco): has quit using tobacco Year quit tobacco: 2015 - PPD x 45 Years Second hand smoke exposure: No Alcohol intake: never Lives independently: Yes Household members: none Marital status: service: No Current occupational status: disabled History of recent travel: No Current gender identity: Male Data Anesthesia Other Labs: Laboratory Results - last 48 hr 05/10/20 10:53 POC Glucose 315 H Cardiac Studies: No Data to Display
--- NOTE | 2020-05-10 12:33 | W.PM.OPSUD ---
Surgery/Procedure H&P Update DATE OF PROCEDURE: May 10, 2020 DATE H&P PERFORMED: 04/26/20 H&P UPDATE INFORMATION: I have reviewed H&P completed within last 30 days, I have examined patient prior to procedure and No changes to prior documentation PREOP DIAGNOSIS: panendoscopy PLANNED PROCEDURE: Operation Date: 05/10/20 11:30 Proposed Procedures p EGD/colon 98390 [id number] D64.9 K92.1(Not Applicable) - Ender Richards MD s Colonoscopy(Not Applicable) - Ender Richards MD
[2020-05-10 13:07] VITALS: BP 104/65; PULSE 64; RESP 16; TEMP 36.5; O2SAT 95
--- NOTE | 2020-05-10 13:30 | SUR.OPER ---
procedure was started but was aborted due to poor bowel prep
--- NOTE | 2020-05-10 13:32 | ANE.PACU2 ---
Inpatient post-anesthesia follow up: Airway intact: Yes Vital signs: Temperature 97.7 F Pulse Rate 64 Respiratory Rate 16 Blood Pressure 104/65 Pulse Oximetry 95 Oxygen Delivery Me thod Room Air Oxygen Flow Rate 4 Fraction of Inspir ed Oxygen Hydration adequate: Yes Nausea and vomiting: No Pain level: 1 Mental status: Baseline
[2020-05-10 13:37] VITALS: BP 137/80; PULSE 64; RESP 16; O2SAT 100
== END 2020-05-10 14:01 | disposition home or self-care (01) ==
PROVIDERS: PCP Family Medicine; Visit Provider Surgery
PROC: 0DJ08ZZ Inspection of Upper Intestinal Tract, Via Natural or Artificial Opening Endoscopic (ICD-10-PCS; CPT 43235; principal; 2020-05-10 11:30)
PROC: 0DJD8ZZ Inspection of Lower Intestinal Tract, Via Natural or Artificial Opening Endoscopic (ICD-10-PCS; CPT 45330; 2020-05-10 11:30)
DX: D64.9 Anemia, unspecified (principal); K92.1 Melena; K44.9 Diaphragmatic hernia without obstruction or gangrene; E11.9 Type 2 diabetes mellitus without complications; K21.9 Gastro-esophageal reflux disease without esophagitis; Z87.891 Personal history of nicotine dependence; Z85.118 Personal history of other malignant neoplasm of bronchus and lung; Z90.2 Acquired absence of lung [part of]; Z79.82 Long term (current) use of aspirin; Z79.891 Long term (current) use of opiate analgesic; J44.9 Chronic obstructive pulmonary disease, unspecified; Z79.84 Long term (current) use of oral hypoglycemic drugs; Z91.19 Patient's noncompliance with other medical treatment and regimen
CPT/HCPCS: 12345; 36416; 43239; 45330; 82962; 88305; J2704; J7030

== ENCOUNTER 2020-05-11 11:52 | Day surgery (SDC) | payer MEDICARE, MEDICAID, SELFPAY ==
[2020-05-11 12:08] VITALS: BMI 25.1
--- NOTE | 2020-05-11 12:15 | P.ANESUD_ITS ---
Pre-Anesthetic Update Pre-Anesthetic Assessment: Date of Surgery/Procedure: 05/11/20 Preop Vaishali gnosis: diagnostic Proposed Procedure: Operation Date: 05/11/20 13:00 Proposed Procedures p Colonoscopy(Not Applicable) - Ender Richards MD Any changes to Pre-Anesthetic Assessment?: No Exam: Pre-Anes Outpt Exam: alert, oriented x 3, clear to auscultation bilaterally and regular rate & rhythm Cardiac Studies: No Data to Display
[2020-05-11 12:21] VITALS: BP 129/78; PULSE 109; RESP 18; TEMP 36.2; O2SAT 96
[2020-05-11 12:24] LABS: Glucose Point of Care 250 mg/dL (70-110)
[2020-05-11] MEDS: sodium chloride 0.9% 1,000 ML 30 ML IV (12:34)
[2020-05-11 13:07] VITALS: BP 128/71; PULSE 64; RESP 16; TEMP 36.8
[2020-05-11 13:22] VITALS: BP 121/66; PULSE 67; RESP 18; TEMP 36.7; O2SAT 100
--- NOTE | 2020-05-11 13:45 | ANE.PACU2 ---
Inpatient post-anesthesia follow up: Airway intact: Yes Vital signs: Temperature 98.0 F Pulse Rate 67 Respiratory Rate 18 Blood Pressure 121/66 Pulse Oximetry 100 Oxygen Delivery Me thod Nasal Cannula Oxygen Flow Rate 3 Fraction of Inspir ed Oxygen Hydration adequate: Yes Nausea and vomiting: No Pain level: 1 Mental status: Baseline
--- NOTE | 2020-05-11 14:52 | W.PM.OPSUD ---
Surgery/Procedure H&P Update DATE OF PROCEDURE: May 11, 2020 DATE H&P PERFORMED: 04/26/20 H&P UPDATE INFORMATION: I have reviewed H&P completed within last 30 days, I have examined patient prior to procedure and No changes to prior documentation PREOP DIAGNOSIS: diagnostic PLANNED PROCEDURE: Operation Date: 05/11/20 13:00 Proposed Procedures p Colonoscopy(Not Applicable) - Ender Richards MD
== END 2020-05-11 13:50 | disposition home or self-care (01) ==
PROVIDERS: PCP Family Medicine; Visit Provider Surgery
PROC: 0DJD8ZZ Inspection of Lower Intestinal Tract, Via Natural or Artificial Opening Endoscopic (ICD-10-PCS; CPT 45378; principal; 2020-05-11 13:00)
DX: D64.9 Anemia, unspecified (principal); K92.1 Melena; Z85.118 Personal history of other malignant neoplasm of bronchus and lung; Z90.2 Acquired absence of lung [part of]; Z79.82 Long term (current) use of aspirin; Z79.891 Long term (current) use of opiate analgesic; Z87.891 Personal history of nicotine dependence
CPT/HCPCS: 12345; 36416; 45378; 82962; J2704; J7030

== ENCOUNTER → 2020-05-19 13:41 | Outpatient (BNVA) | payer MEDICARE, MEDICAID, SELFPAY | PROVIDERS: PCP Family Medicine; Visit Provider Nurse Practitioner | DX: M54.5 Low back pain (principal); R10.9 Unspecified abdominal pain; Z79.1 Long term (current) use of non-steroidal anti-inflammatories (NSAID); Z79.891 Long term (current) use of opiate analgesic | CPT/HCPCS: 99213 ==

== ENCOUNTER 2020-05-20 09:22 | Outpatient (CLI) | payer MEDICARE, MEDICAID, SELFPAY ==
[2020-05-20 09:54] LABS: Basophils # 0.1 10^3/uL (0.0-0.1); Basophils % 0.8 %; Eosinophils # 0.2 10^3/uL (0.0-0.8); Eosinophils % 2.5 %; Hematocrit 33.5 % (42.0-52.0); Hemoglobin 10.1 g/dL (11.7-16.6); Lymphocytes # 1.3 10^3/uL (0.8-4.8); Lymphocytes % 18.7 %; Mean Corpuscular HGB Conc 30.1 g/dL (30.0-36.0); Mean Corpuscular Hemoglobin 25.8 pg (28.0-34.0); Mean Corpuscular Volume 85.5 fL (80-94); Mean Platelet Volume 10.7 fL (7.4-10.4); Monocytes # 0.5 10^3/uL (0.2-0.9); Monocytes % 7.2 %; Neutrophils # 4.99 10^3/uL (1.8-7.7); Neutrophils % 70.4 %; Nucleated Red Blood Cells % 0 %; Platelet Count 215 10^3/cmm (130-400); Red Blood Count 3.92 10^6/uL (4.1-5.3); Red Cell Distribution Width 14.5 % (12.1-15.1); White Blood Count 7.1 10^3/uL (4.0-10.0)
[2020-05-20 10:17] LABS: Ferritin 19 ng/mL (30-400); Iron 56 ug/dL (59-158); Percent Saturation 14.6 % (20-50); Total Iron Binding Capacity 383 mcg/dl; Unsaturated Iron Binding 327 ug/dL (112-347)
--- NOTE | 2020-05-20 11:36 | ONC FU_ITS ---
Dr. Yo follow up note Patient: Moses Cardoza Unit #: [id number]: 1950 Dicatated By: Hussein Yo M.D.Date of Visit:May 20, 2020 Onc Med Follow-up/Prog Note History of Present Illness: Mr. Moses Cardoza, 70-year-old gentleman with history of emphysema now on home oxygen, underwent right lower lobectomy on 10/06/2014 for localized squamous cell carcinoma. Postop period was complicated with pleural effusion for which he underwent decortication. Now with no evidence of disease as per last CT scan of abdomen pelvis done on 01/20/2016 in [facility]. As per patient no further treatment was offered as it was a early stage disease and he was followed by medical oncologist and thoracic surgeon there at [facility] in [place]. CT scan of the chest done on 07/15/2017 showed no evidence of residual recurrence of disease CT scan of chest done on 06/17/2018 showed no evidence of residual, recurrent or metastatic disease. Severe chronic emphysema, stable postoperative changes from prior right lower lobectomy. Follow-up CT scan of chest done on 02/18/2019 showed post operative changes due to right lower lobectomy, no evidence of residual or recurrence of disease CT scan of chest done on February 17, 2020 showed right lower lobe lobectomy with chronic changes negative for acute cardiopulmonary disease He is on home oxygen for severe emphysema/COPD On oral iron for iron deficiency anemia Came for follow-up, denies any specific complaint except generalized weakness and fatigue but no fever chills, no nausea or vomiting, no diarrhea or constipation, no melena or hematochezia, patient underwent EGD on May 10, 2020 which was unremarkable and colonoscopy was done next day due to poor prep and report is pending. Patient is taking oral iron, tolerating well except off and on constipation or indigestion Medications: Acetaminophen Capsule Oral PRN, Albuterol Sulfate HFA Aerosol, solution Inhalation PRN, Alendronate Sodium 1 Tablet (of 70 mg/75mL) Solution Oral q 7 days, Aleve 1 (220 mg) Tablet Oral PRN, Aspirin 1 (81 mg) Tablet, enteric coated Oral daily, Calcium 1 (600 mg) Tablet Oral b.i.d., Crestor 1 (10 mg) Tablet Oral at bedtime, DULoxetine HCl 1 (30 mg) Capsule Delayed Release Particles Oral daily, Fosamax 1 (70 mg) Tablet Oral q 7 days, Hydrocodone-Acetaminophen 1 (7.5-325 mg) Tablet Oral four times a day PRN, Lexapro 1 (20 mg) Tablet Oral daily, MetFORMIN HCl ER 1 (750 mg) Tablet SR 24 HR Oral daily, MethIMAzole 2 Tablet (of 10 mg) Oral daily, Mucinex DM 1 (30-600 mg) Tablet SR 12 HR Oral b.i.d., Multivitamin Adult 1 Tablet Oral daily, Pepcid 1 (20 mg) Tablet Oral daily PRN, Senna 1 (8.6 mg) Capsule Oral b.i.d., Stiolto Respimat 1 Puff(s) (of 2.5-2.5 mcg/act) Aerosol, solution Inhalation daily, Symbicort 2 puff(s) (of 80-4.5 mcg/act) Aerosol Inhalation b.i.d., Tamsulosin HCl 1 (0.4 mg) Capsule Oral daily, TraMADol HCl 1 (50 mg) Tablet Oral q 12 hours Allergies: No Known Allergies. Review of Systems: Constitutional - His energy level is low. Appetite is good and weight is stable. No fever, chills, hot flashes, or night sweats, ENMT - No sinus drainage. No mouth sores. No sore throat or difficulty swallowing, Hematologic/Lymphatic - No abnormal bruising or bleeding, Respiratory - He has shortness of breath and wears portable oxygen. No cough. No pleuritic pain, Cardiovascular - No angina pain, Gastrointestinal - No nausea or vomiting. No heartburn. No diarrhea or constipation. No blood in the stool or black stools, Genitourinary (M) - No dysuria or hematuria. No urinary frequency. No urgency or incontinence, Musculoskeletal - He has back pain, Neurologic - No headache or dizziness. He has numbness in his feet occasionally, Psychiatric - No anxiety or depression. No insomnia. Vital Signs: Performed on May 20, 2020 10:53 Height - 70.00 in Weight - 197.6 lbs (LOW) BSA - 2.08 sq.m BMI - 28.35 Temperature - 98.3 F (LOW) Pulse - 92 /min Respiration - 22 /min BP - 162/78 mm(hg) (HIGH) O2 Sat - 93 % (LOW) Pain - 8 Performance Status: 2 - Ambulatory/capable of all self-care, unable to perform any work activities. Up and about more than 50% of waking hours. (ECOG) Physical Examination: ENMT - No mouth sores, no thrush, no jaundice, Respiratory - Poor air entry otherwise clear, Cardiovascular - Regular rate and rhythm of heart, Abdomen - Soft, bowel sounds present, Extremities - No visible edema. Lab/Imaging: Test performed on Apr 18, 2020 09:12 WBC 8.0 10 3/uL RBC 3.84 10 6/uL HGB 9.6 g/dL HCT 32.9 % MCV 85.7 fL MCH 25.0 pg MCHC 29.2 g/dL RDW 14.0 % Platelet Count 162 10 3/cmm MPV 11.1 fL Neutrophils 5.86 10 3/uL Lymphocytes 1.5 10 3/uL Monocytes 0.5 10 3/uL Eosinophils 0.2 10 3/uL Basophils 0.0 10 3/uL Neutrophil % 72.8 % Lymphocyte % 18.3 % Monocyte % 6.1 % Eosinophil % 1.9 % Basophils % 0.5 % NRBC % 0 % Test performed on Mar 16, 2020 13:13 Ferritin 19 ng/mL Iron 55 mcg/dL Sodium 137 mmol/L Vitamin B12 487 pg/mL Iron Binding Capacity (TIBC) 405 mcg/dl Potassium 4.5 mmol/L % Iron Saturation 13.5 % Chloride 97 mmol/L CO2 27 mmol/L UIBC 350 mcg/dL Anion Gap 17.5 BUN 23 mg/dL Creatinine 1.0 mg/dL Cr Clearance (Est) 89.82 mL/min eGFR 74.1 mL/min Glucose 319 mg/dL Osmolality - Calculated 300 mOsm/kg Calcium 9.8 mg/dL Protein, Total 7.2 g/dL Albumin 4.2 g/dL Globulin 3.0 g/dL Bilirubin, Total 0.2 mg/dL ALT (SGPT) 15 U/L AST (SGOT) 9 U/L Alkaline Phosphatase 79 IU/L Retic Count % 1.7000 % Impression: 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 Size of tumor 4 x 3.8 x 2.9 cm, moderately to poorly differentiated, no pleural involvement tumor was present within 1-2 mm of inked pleural margin however all margins were clear no lymphovascular invasion seen pT2a 12 mediastinal lymph nodes were removed showed no evidence of metastatic disease N0 Mx stage IB Now being observed CT scan of chest done on 01/20/2016 at [facility] in [facility] showed volume loss noted within the right hemithorax with small right-sided pleural effusion, these are thought to be postsurgical changes, centrilobular emphysematous changes are noted with minimal scarring/atelectasis in the right middle lobe CT scan of the chest done on 07/15/2017 showed no evidence of residual or recurrent or metastatic neoplasm, status post right lower lobectomy with associated postoperative changes, severe chronic emphysematous CT scan of chest done on 06/17/2018 showed no evidence of recurrent or residual disease, postoperative changes from prior right lower lobectomy, severe emphysema Iron deficiency anemia , on oral iron, Oral iron discontinued on May 20, 2020 because of intolerance and persistent iron deficiency anemia Plan: Discussed with patient regarding his labs white blood count 7.1 hemoglobin 10.1 hematocrit 33.5 platelets 215,000 iron studies shows iron saturation 14.6% L ferritin 19 L iron 56 L TIBC 383 Clinically, patient is doing well with no new signs symptom except persistent generalized weakness and fatigue his follow-up lab work-up showed persistent iron deficiency anemia, no improvement on oral iron and patient is also having some signs symptom suggestive of intolerance, at this point will discontinue oral iron and consider parenteral iron Injectafer 750 mg IV weekly x2 and then he will return to clinic 1 month after second dose of Injectafer with CBC and iron studies and in the meantime will obtain EGD and colonoscopy report. Signed By: Hussein Yo M.D. <<Signature on File>>
== END 2020-05-20 09:23 | disposition home or self-care (01) ==
PROVIDERS: PCP Family Medicine; Visit Provider Internal Medicine Hematology & Oncology
DX: Z08 Encounter for follow-up examination after completed treatment for malignant neoplasm (principal); Z85.118 Personal history of other malignant neoplasm of bronchus and lung; D50.9 Iron deficiency anemia, unspecified; Z90.2 Acquired absence of lung [part of]; J43.9 Emphysema, unspecified; Z79.899 Other long term (current) drug therapy
CPT/HCPCS: 36415; 82728; 83540; 83550; 85025; 99214

== ENCOUNTER 2020-06-15 13:43 | Outpatient (CLI) | payer MEDICARE, MEDICAID, SELFPAY ==
[2020-06-15] MEDS: ferric carboxy (IVPB) 750 MG in sodium chloride 0.9% (100 ml) 100 ML 460 MG IV (14:25)
[2020-06-15] MEDS: sodium chloride 0.9% (100 ml) 100 ML 75 ML (14:25)
== END 2020-06-15 13:44 | disposition home or self-care (01) ==
LOC: ONCMED 13:47
PROVIDERS: PCP Family Medicine; Visit Provider Internal Medicine Hematology & Oncology
DX: D50.9 Iron deficiency anemia, unspecified (principal)
CPT/HCPCS: 96365; J1439

== ENCOUNTER → 2020-06-16 13:46 | Outpatient (BNVA) | payer MEDICARE, MEDICAID, SELFPAY | PROVIDERS: PCP Family Medicine; Visit Provider Nurse Practitioner | DX: M54.5 Low back pain (principal); Z79.891 Long term (current) use of opiate analgesic | CPT/HCPCS: 99213 ==

== ENCOUNTER 2020-06-22 06:27 | Outpatient (CLI) | payer MEDICARE, MEDICAID, SELFPAY ==
[2020-06-22] MEDS: ferric carboxy (IVPB) 750 MG in sodium chloride 0.9% (100 ml) 100 ML 345 MG IV (14:15)
== END 2020-06-22 06:28 | disposition home or self-care (01) ==
LOC: ONCMED 06:41
PROVIDERS: PCP Family Medicine; Visit Provider Internal Medicine Hematology & Oncology
DX: D50.9 Iron deficiency anemia, unspecified (principal); Z85.118 Personal history of other malignant neoplasm of bronchus and lung
CPT/HCPCS: 96365; J1439

== ENCOUNTER 2020-08-03 10:52 | Outpatient (CLI) | payer MEDICARE, MEDICAID, SELFPAY ==
[2020-08-03 11:21] LABS: Basophils # 0.1 10^3/uL (0.0-0.1); Basophils % 0.7 %; Eosinophils # 0.2 10^3/uL (0.0-0.8); Eosinophils % 2.6 %; Hematocrit 37.2 % (42.0-52.0); Hemoglobin 11.9 g/dL (11.7-16.6); Lymphocytes # 1.6 10^3/uL (0.8-4.8); Lymphocytes % 18.3 %; Mean Corpuscular Hemoglobin 28.2 pg (28.0-34.0); Mean Corpuscular Volume 88.2 fL (80-94); Mean Platelet Volume 10.5 fL (7.4-10.4); Monocytes # 0.5 10^3/uL (0.2-0.9); Monocytes % 6.1 %; Neutrophils # 6.09 10^3/uL (1.8-7.7); Neutrophils % 72.1 %; Nucleated Red Blood Cells % 0 %; Platelet Count 165 10^3/cmm (130-400); Red Blood Count 4.22 10^6/uL (4.1-5.3); Red Cell Distribution Width 14.6 % (12.1-15.1); White Blood Count 8.5 10^3/uL (4.0-10.0)
[2020-08-03 11:41] LABS: Ferritin 369 ng/mL (30-400); Iron 129 ug/dL (59-158); Percent Saturation 45.9 % (20-50); Total Iron Binding Capacity 281 mcg/dl; Unsaturated Iron Binding 152 ug/dL (112-347)
--- NOTE | 2020-08-03 16:51 | ONC FU_ITS ---
Dr. Yo follow up note Patient: Moses Cardoza Unit #: [id number]: 1950 Dicatated By: Hussein Yo M.D.Date of Visit:Aug 03, 2020 Onc Med Follow-up/Prog Note History of Present Illness: Mr. Moses Cardoza, 70-year-old gentleman with history of emphysema now on home oxygen, underwent right lower lobectomy on 10/06/2014 for localized squamous cell carcinoma. Postop period was complicated with pleural effusion for which he underwent decortication. Now with no evidence of disease as per last CT scan of abdomen pelvis done on 01/20/[address] [facility]. As per patient no further treatment was offered as it was a early stage disease and he was followed by medical oncologist and thoracic surgeon there at [facility] in [place]. CT scan of the chest done on 07/15/2017 showed no evidence of residual recurrence of disease CT scan of chest done on 06/17/2018 showed no evidence of residual, recurrent or metastatic disease. Severe chronic emphysema, stable postoperative changes from prior right lower lobectomy. Follow-up CT scan of chest done on 02/18/2019 showed post operative changes due to right lower lobectomy, no evidence of residual or recurrence of disease CT scan of chest done on February 17, 2020 showed right lower lobe lobectomy with chronic changes negative for acute cardiopulmonary disease He is on home oxygen for severe emphysema/COPD On oral iron for iron deficiency anemia, Was discontinued because of intolerance Status post Injectafer 750 mg weekly x2 in June 2020 Came for follow-up, denies any specific complaints, no fever chills, no nausea or vomiting, no diarrhea constipation, no hemoptysis hematemesis, no jaundice, more energetic since iron infusion Medications: Acetaminophen Capsule Oral PRN, Albuterol Sulfate HFA Aerosol, solution Inhalation PRN, Alendronate Sodium 1 Tablet (of 70 mg/75mL) Solution Oral q 7 days, Aleve 1 (220 mg) Tablet Oral PRN, Aspirin 1 (81 mg) Tablet, enteric coated Oral daily, Calcium 1 (600 mg) Tablet Oral b.i.d., Crestor 1 (10 mg) Tablet Oral at bedtime, DULoxetine HCl 1 (30 mg) Capsule Delayed Release Particles Oral daily, Fosamax 1 (70 mg) Tablet Oral q 7 days, Hydrocodone-Acetaminophen 1 (7.5-325 mg) Tablet Oral four times a day PRN, Lexapro 1 (20 mg) Tablet Oral daily, MetFORMIN HCl ER 1 (750 mg) Tablet SR 24 HR Oral daily, MethIMAzole 2 Tablet (of 10 mg) Oral daily, Mucinex DM 1 (30-600 mg) Tablet SR 12 HR Oral b.i.d., Multivitamin Adult 1 Tablet Oral daily, Pepcid 1 (20 mg) Tablet Oral daily PRN, Senna 1 (8.6 mg) Capsule Oral b.i.d., Stiolto Respimat 1 Puff(s) (of 2.5-2.5 mcg/act) Aerosol, solution Inhalation daily, Symbicort 2 puff(s) (of 80-4.5 mcg/act) Aerosol Inhalation b.i.d., Tamsulosin HCl 1 (0.4 mg) Capsule Oral daily, TraMADol HCl 1 (50 mg) Tablet Oral q 12 hours Allergies: No Known Allergies. Review of Systems: Review of Systems is not available for this patient. Vital Signs: Performed on Aug 03, 2020 12:38 Height - 70.00 in Weight - 198.6 lbs (HIGH) BSA - 2.08 sq.m BMI - 28.50 Temperature - 97.4 F (LOW) Pulse - 88 /min Respiration - 18 /min BP - 84/59 mm(hg) (LOW) O2 Sat - 94 % (LOW) Pain - 0 Fatigue - 10 Performance Status: 1 - No physically strenuous activity, but ambulatory and able to carry out light or sedentary work (e.g. office work, light house work). (ECOG) Physical Examination: ENMT - No mouth sores, no thrush, no jaundice, Respiratory - Poor air entry otherwise clear, Cardiovascular - Regular rate and rhythm of heart, Abdomen - Soft, bowel sounds present, Extremities - No visible edema. Lab/Imaging: Test performed on May 20, 2020 09:35 Ferritin 19 ng/mL Iron 56 mcg/dL Iron Binding Capacity (TIBC) 383 mcg/dl % Iron Saturation 14.6 % UIBC 327 mcg/dL WBC 7.1 10 3/uL RBC 3.92 10 6/uL HGB 10.1 g/dL HCT 33.5 % MCV 85.5 fL MCH 25.8 pg MCHC 30.1 g/dL RDW 14.5 % Platelet Count 215 10 3/cmm MPV 10.7 fL Neutrophils 4.99 10 3/uL Lymphocytes 1.3 10 3/uL Monocytes 0.5 10 3/uL Eosinophils 0.2 10 3/uL Basophils 0.1 10 3/uL Neutrophil % 70.4 % Lymphocyte % 18.7 % Monocyte % 7.2 % Eosinophil % 2.5 % Basophils % 0.8 % NRBC % 0 % Test performed on Mar 16, 2020 13:13 Sodium 137 mmol/L Vitamin B12 487 pg/mL Potassium 4.5 mmol/L Chloride 97 mmol/L CO2 27 mmol/L Anion Gap 17.5 BUN 23 mg/dL Creatinine 1.0 mg/dL Cr Clearance (Est) 89.82 mL/min eGFR 74.1 mL/min Glucose 319 mg/dL Osmolality - Calculated 300 mOsm/kg Calcium 9.8 mg/dL Protein, Total 7.2 g/dL Albumin 4.2 g/dL Globulin 3.0 g/dL Bilirubin, Total 0.2 mg/dL ALT (SGPT) 15 U/L AST (SGOT) 9 U/L Alkaline Phosphatase 79 IU/L Retic Count % 1.7000 % Impression: 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 Size of tumor 4 x 3.8 x 2.9 cm, moderately to poorly differentiated, no pleural involvement tumor was present within 1-2 mm of inked pleural margin however all margins were clear no lymphovascular invasion seen pT2a 12 mediastinal lymph nodes were removed showed no evidence of metastatic disease N0 Mx stage IB Now being observed CT scan of chest done on 01/20/2016 at [facility] in [facility] showed volume loss noted within the right hemithorax with small right-sided pleural effusion, these are thought to be postsurgical changes, centrilobular emphysematous changes are noted with minimal scarring/atelectasis in the right middle lobe CT scan of the chest done on 07/15/2017 showed no evidence of residual or recurrent or metastatic neoplasm, status post right lower lobectomy with associated postoperative changes, severe chronic emphysematous CT scan of chest done on 06/17/2018 showed no evidence of recurrent or residual disease, postoperative changes from prior right lower lobectomy, severe emphysema Iron deficiency anemia , on oral iron, Oral iron discontinued on May 20, 2020 because of intolerance and persistent iron deficiency anemia, Was given Injectafer 750 mg IV weekly x2 in June 2020 with excellent response, EGD done on May 10, 2020 shows mild inflammatory/mucosal changes in the distal esophagus but biopsy was benign, stomach shows mild hiatal hernia. Duodenal exam was unremarkable, colonoscopy without any abnormality Plan: Patient regarding his labs white blood count 8.5 hemoglobin 11.9 g compared to 10.1 g on May 16, 2020, prior to Injectafer infusion, hematocrit 37.2 platelets 165,000 iron studies shows iron saturation 45.9% compared to 14.6% earlier ferritin 369 compared to 19 prior to infusion iron 129, underwent EGD and colonoscopy on May 10, 2020 which showed no active bleeding and upper GI and colonoscopy was also without any abnormality Clinically, patient doing well with no new signs symptom and tolerated parenteral iron well and with excellent response e.g. follow-up CBC shows normalization of her iron stores as well as iron deficiency anemia, at this point we will continue to monitor, recently underwent EGD and colonoscopy showed no evidence of gross bleeding or any pathology, patient return to clinic in 2 months with CBC and iron studies if there is a further drop in his iron studies, then we may consider capsule endoscopy to rule out small bowel AVMs causing chronic GI blood loss. Otherwise we will monitor Signed By: Hussein Yo M.D. <<Signature on File>>
== END 2020-08-03 10:53 | disposition home or self-care (01) ==
PROVIDERS: PCP Family Medicine; Visit Provider Internal Medicine Hematology & Oncology
DX: C34.31 Malignant neoplasm of lower lobe, right bronchus or lung (principal); J90 Pleural effusion, not elsewhere classified; J98.11 Atelectasis; J43.9 Emphysema, unspecified; D50.9 Iron deficiency anemia, unspecified; Z79.899 Other long term (current) drug therapy
CPT/HCPCS: 82728; 83540; 83550; 85025; G0463

== ENCOUNTER → 2020-08-11 13:47 | Outpatient (BNVA) | payer MEDICARE, MEDICAID, SELFPAY | PROVIDERS: PCP Family Medicine; Visit Provider Anesthesiology | DX: G89.29 Other chronic pain (principal); M54.42 Lumbago with sciatica, left side; Z79.891 Long term (current) use of opiate analgesic | CPT/HCPCS: 99213 ==

== ENCOUNTER 2020-10-06 12:02 | Outpatient (CLI) | payer MEDICARE, MEDICAID, SELFPAY ==
[2020-10-06 13:00] LABS: Basophils % 0.4 %; Eosinophils # 0.2 10^3/uL (0.0-0.8); Eosinophils % 1.7 %; Hematocrit 37.4 % (42.0-52.0); Hemoglobin 12.2 g/dL (11.7-16.6); Lymphocytes # 0.9 10^3/uL (0.8-4.8); Lymphocytes % 10.3 %; Mean Corpuscular HGB Conc 32.6 g/dL (30.0-36.0); Mean Corpuscular Hemoglobin 29.8 pg (28.0-34.0); Mean Corpuscular Volume 91.2 fL (80-94); Mean Platelet Volume 10.2 fL (7.4-10.4); Monocytes # 0.6 10^3/uL (0.2-0.9); Monocytes % 6.8 %; Neutrophils # 7.26 10^3/uL (1.8-7.7); Neutrophils % 80.5 %; Nucleated Red Blood Cells % 0 %; Platelet Count 208 10^3/cmm (130-400); Red Cell Distribution Width 12.8 % (12.1-15.1)
[2020-10-06 13:24] LABS: Iron 86 ug/dL (59-158); Percent Saturation 29.5 % (20-50); Total Iron Binding Capacity 291 mcg/dl; Unsaturated Iron Binding 205 ug/dL (112-347)
--- NOTE | 2020-10-06 15:05 | ONC FU_ITS ---
Dr. Yo follow up note Patient: Moses Cardoza Unit #: [id number]: 1950 Dicatated By: Hussein Yo M.D.Date of Visit:Oct 06, 2020 Onc Med Follow-up/Prog Note History of Present Illness: Mr. Moses Cardoza, 70-year-old gentleman with history of emphysema now on home oxygen, underwent right lower lobectomy on 10/06/2014 for localized squamous cell carcinoma. Postop period was complicated with pleural effusion for which he underwent decortication. Now with no evidence of disease as per last CT scan of abdomen pelvis done on 01/20/2016 in [facility]. As per patient no further treatment was offered as it was a early stage disease and he was followed by medical oncologist and thoracic surgeon there at [facility] in [place]. CT scan of the chest done on 07/15/2017 showed no evidence of residual recurrence of disease CT scan of chest done on 06/17/2018 showed no evidence of residual, recurrent or metastatic disease. Severe chronic emphysema, stable postoperative changes from prior right lower lobectomy. Follow-up CT scan of chest done on 02/18/2019 showed post operative changes due to right lower lobectomy, no evidence of residual or recurrence of disease CT scan of chest done on February 17, 2020 showed right lower lobe lobectomy with chronic changes negative for acute cardiopulmonary disease He is on home oxygen for severe emphysema/COPD On oral iron for iron deficiency anemia, Was discontinued because of intolerance Status post Injectafer 750 mg weekly x2 in June 2020 Came for follow-up, denies any specific complaints, no fever chills, no nausea or vomiting, no diarrhea or constipation, no melena or hematochezia, no hemoptysis or hematemesis, no palpitation or shortness of breath at rest, patient on home oxygen for severe emphysema Medications: Acetaminophen Capsule Oral PRN, Albuterol Sulfate HFA Aerosol, solution Inhalation PRN, Alendronate Sodium 1 Tablet (of 70 mg/75mL) Solution Oral q 7 days, Aleve 1 (220 mg) Tablet Oral PRN, Aspirin 1 (81 mg) Tablet, enteric coated Oral daily, Calcium 1 (600 mg) Tablet Oral b.i.d., Crestor 1 (10 mg) Tablet Oral at bedtime, DULoxetine HCl 1 (30 mg) Capsule Delayed Release Particles Oral daily, Fosamax 1 (70 mg) Tablet Oral q 7 days, Hydrocodone-Acetaminophen 1 (7.5-325 mg) Tablet Oral four times a day PRN, Lexapro 1 (20 mg) Tablet Oral daily, MetFORMIN HCl ER 1 (750 mg) Tablet SR 24 HR Oral daily, MethIMAzole 2 Tablet (of 10 mg) Oral daily, Mucinex DM 1 (30-600 mg) Tablet SR 12 HR Oral b.i.d., Multivitamin Adult 1 Tablet Oral daily, Pepcid 1 (20 mg) Tablet Oral daily PRN, Senna 1 (8.6 mg) Capsule Oral b.i.d., Stiolto Respimat 1 Puff(s) (of 2.5-2.5 mcg/act) Aerosol, solution Inhalation daily, Symbicort 2 puff(s) (of 80-4.5 mcg/act) Aerosol Inhalation b.i.d., Tamsulosin HCl 1 (0.4 mg) Capsule Oral daily, TraMADol HCl 1 (50 mg) Tablet Oral q 12 hours Allergies: No Known Allergies. Review of Systems: Review of Systems is not available for this patient. Vital Signs: Vitals are not available for this patient. Performance Status: 2 - Ambulatory/capable of all self-care, unable to perform any work activities. Up and about more than 50% of waking hours. (ECOG) Physical Examination: ENMT - No mouth sores, no thrush, no jaundice, Respiratory - Poor air entry otherwise clear, Cardiovascular - Regular rate and rhythm of heart, Abdomen - Soft, bowel sounds present, Extremities - No visible edema or rash. 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 Size of tumor 4 x 3.8 x 2.9 cm, moderately to poorly differentiated, no pleural involvement tumor was present within 1-2 mm of inked pleural margin however all margins were clear no lymphovascular invasion seen pT2a 12 mediastinal lymph nodes were removed showed no evidence of metastatic disease N0 Mx stage IB Now being observed CT scan of chest done on 01/20/2016 at [facility] in [facility] showed volume loss noted within the right hemithorax with small right-sided pleural effusion, these are thought to be postsurgical changes, centrilobular emphysematous changes are noted with minimal scarring/atelectasis in the right middle lobe CT scan of the chest done on 07/15/2017 showed no evidence of residual or recurrent or metastatic neoplasm, status post right lower lobectomy with associated postoperative changes, severe chronic emphysematous CT scan of chest done on 06/17/2018 showed no evidence of recurrent or residual disease, postoperative changes from prior right lower lobectomy, severe emphysema Iron deficiency anemia , on oral iron, Oral iron discontinued on May 20, 2020 because of intolerance and persistent iron deficiency anemia, Was given Injectafer 750 mg IV weekly x2 in June 2020 with excellent response, EGD done on May 10, 2020 shows mild inflammatory/mucosal changes in the distal esophagus but biopsy was benign, stomach shows mild hiatal hernia. Duodenal exam was unremarkable, colonoscopy without any abnormality Plan: Discussed with patient regarding his labs white blood count 9 hemoglobin 12.2 hematocrit 37.4 platelets 208,000 iron saturation 29.5% iron 86 compared to 129 previously TIBC 291, ferritin is pending Clinically, patient doing well with no new signs symptom, is follow-up labs showed resolution of iron deficiency anemia after parenteral iron, iron stores adequate, will continue to monitor return to clinic in 3 months with CBC and iron studies As far as history of non-small cell lung cancer is concerned, there is no signs symptom suggestive of recurrence of disease. Signed By: Hussein Yo M.D. <<Signature on File>>
== END 2020-10-06 12:03 | disposition home or self-care (01) ==
LOC: ONCMED 12:07
PROVIDERS: PCP Family Medicine; Visit Provider Internal Medicine Hematology & Oncology
DX: Z08 Encounter for follow-up examination after completed treatment for malignant neoplasm (principal); Z85.118 Personal history of other malignant neoplasm of bronchus and lung; J90 Pleural effusion, not elsewhere classified; J43.9 Emphysema, unspecified; J98.11 Atelectasis; Z79.899 Other long term (current) drug therapy
CPT/HCPCS: 83540; 83550; 85025; 99214

== ENCOUNTER → 2020-10-12 11:14 | Outpatient (BNVA) | payer MEDICARE, MEDICAID, SELFPAY | PROVIDERS: PCP Family Medicine; Visit Provider Nurse Practitioner | DX: G89.29 Other chronic pain (principal); M54.42 Lumbago with sciatica, left side; Z79.891 Long term (current) use of opiate analgesic | CPT/HCPCS: 99212; 99213 ==

== ENCOUNTER → 2020-12-07 15:06 | Outpatient (BNVA) | payer MEDICARE, MEDICAID, SELFPAY | PROVIDERS: PCP Family Medicine; Visit Provider Anesthesiology | DX: G89.29 Other chronic pain (principal); M54.42 Lumbago with sciatica, left side; Z79.891 Long term (current) use of opiate analgesic; Z87.891 Personal history of nicotine dependence | CPT/HCPCS: 99213 ==

== ENCOUNTER 2020-12-26 06:35 | Emergency (ER) | payer MEDICARE, MEDICAID, SELFPAY ==
[2020-12-26 06:38] VITALS: BP 128/83; PULSE 99; RESP 22; TEMP 36.6; O2SAT 93; BMI 24.4
--- NOTE | 2020-12-26 06:56 | XR_ITS ---
WS: [id number] XR chest 1V portable [id number] REASON FOR EXAM: dyspnea/cough FINDINGS: The heart is not enlarged. There has been previous thoracotomy with partial right pneumonectomy. There are interstitial changes in the right lower lung field. There is blunting of right costophrenic angle. These findings appear s table compared to the previous examination of 04/16/2019. No significant pulmonary parenchymal or pleural abnormality is noted in the left hemithorax. XR/XR chest 1V portable [id number] IMPRESSION: Chronic changes from previous right thoracotomy. No definite active pulmonary d isease.
--- NOTE | 2020-12-26 06:59 | W.ED.SOB ---
HPI - SOB/Dyspnea General: Chief Complaint: Shortness of Breath/Dyspnea Stated Complaint: SOB Time Seen by Provider: 12/26/20 06:42 History of Present Illness: HPI Narrative: 70-year-old male brought in by EMS with complaint of shortness of breath. Patient called EMS morning when he got up and he was trying to get up and get to the bathroom and got profoundly short of breath. He denies any chest pains not any productive cough. EMS arrived reported the patient was on 80 to 84% on room air they put him on 6 L by nasal cannula. He usually does wear 5 L by nasal cannula at home because of his COPD. MD elicited complaint: shortness of breath and cough Pertinent past history: COPD Onset (ago): hour(s) Context: occurred during exertion Timing: improved Severity: moderate Exacerbating factors: exertion and coughing Relieving factors: oxygen and rest Known history of: COPD Associated symptoms: Deny abdominal pain, chest congestion, chest pain, cough, diaphoresis, dizziness, extremity pain, fever(s), hemoptysis, lightheadedness, myalgias, nausea, orthopnea, palpitations, paresthesias, polydipsia, polyuria, rash, sense of impending doom, syncope or vomiting Treatment prior to arrival: oxygen, bronchodilator and other (Steroids) Review of Systems Const: Denies: fever(s) or diaphoresis ENMT: Denies: throat pain, ear or mastoid pain, nasal discharge or nasal congestion Card: Denies: chest pain, palpitations, lightheadedness, syncope or orthopnea Resp: Denies: hemoptysis or chest congestion GI: Denies: abdominal pain, nausea or vomiting : Denies: flank pain, dysuria, urinary frequency or urinary urgency Musc: Denies: extremity pain Skin/Breast: Denies: rash or pruritus Neuro: Denies: dizziness Endo: Denies: polyuria or polydipsia PFSH ED PFSH: Medical History Chronic low back pain with left-sided sciatica COPD (chronic obstructive pulmonary disease) GERD (gastroesophageal reflux disease) Low back pain of over 3 months duration Lung cancer Type 2 diabetes mellitus Surgical History H/O esophagogastroduodenoscopy (05/10/20) History of lobectomy of lung right lung-Dr. Hwang -[place] Hx of cholecystectomy Hx of eye surgery bilat-Dr. Navarrete did right and Dr. Perez in [place] Hx of kyphoplasty 07/05/[address] Powell Status post colonoscopy (05/11/20) normal Family History Brother Cancer Diabetes Heart disease Social History Quit status (tobacco): has quit using tobacco Year quit tobacco: 2016 - PPD x 45 Years Second hand smoke exposure: No Alcohol intake: never Lives independently: Yes Household members: none Marital status: service: No Current occupational status: disabled History of recent travel: No Current gender identity: Male Physical Exam Const: COMMON NORMALS: no acute distress GENERAL APPEARANCE: cooperative and comfortable ORIENTATION/CONSCIOUSNESS: Yes awake, Yes oriented to person, Yes oriented to place and Yes oriented to time HENMT: COMMON NORMALS: normocephalic, atraumatic and hearing grossly normal bilaterally HEAD & SCALP: normocephalic and atraumatic Neck/C-Spine: COMMON NORMALS: no JVD Resp: COMMON NORMALS: normal respiratory effort, No retractions and No use of accessory muscles AUSCULTATION: diminished lung sounds Cardio: COMMON NORMALS: no JVD, regular rate, regular rhythm and No murmurs present (Cardio) RATE: regular rate RHYTHM: regular rhythm GI: COMMON NORMALS: Soft to palpation and No hepatosplenomegaly present AUSCULTATION: Yes normoactive bowel sounds PALPATION: Yes Soft to palpation, No Tenderness to palpation present (GI), No Guarding due to palpation present (GI) and Yes No hepatosplenomegaly present Extremity: COMMON NORMALS: normal to inspection, capillary refill normal, no clubbing, cyanosis or edema, no calf tenderness and no pedal edema Neuro: SENSORIUM/ORIENTATION: Yes oriented to person, Yes oriented to place and Yes oriented to time Skin: COMMON NORMALS: no rashes or lesions noted GENERAL SKIN EXAM: no rashes or lesions noted Course Vital Signs: Vital signs: Vital Signs Temperature 97.9 F 12/26/20 06:38 Pulse Rate 91 12/26/20 09:39 Respiratory Rate 18 12/26/20 09:39 Blood Pressure 135/75 12/26/20 09:39 Pulse Oximetry 95 12/26/20 09:39 MDM - SOB/Dyspnea MDM Narrative: Medical decision making narrative: Labs and imaging reviewed as on the chart. Discussed with the patient. A lot of old the changes in the chest from previous pneumonectomy on the right nothing that appears acute by comparison to old x-rays. We will go and discharge him home his sats are maintaining good on his usual 4 to 5 L by nasal cannula have him take doxycycline 100 twice daily for 10 days Medrol Dosepak. Lab Data: Labs: Lab Results 12/26/20 12/26/20 12/26/20 Range/Units 07:45 07:45 07:45 WBC 11.7 H (4.0-10.0) 10^3/ uL RBC 3.76 L (4.1-5.3) 10^6/u L Hgb 11.5 L (11.7-16.6) g/dL Hct 34.5 L (42.0-52.0) % MCV 91.8 (80-94) fl MCH 30.6 (28.0-34.0) pg MCHC 33.3 (30.0-36.0) g/dL RDW 12.3 (12.1-15.1) % Plt Count 187 (130-400) 10^3/c mm MPV 10.0 (7.4-10.4) fL Neut % (Auto) 83.2 % Lymph % (Auto) 10.5 % [place] % (Auto) 4.1 % Eos % (Auto) 1.5 % Baso % (Auto) 0.4 % Neut # (Auto) 9.72 H (1.8-7.7) 10^3/u L Lymph # (Auto) 1.2 (0.8-4.8) 10^3/u L [place] # (Auto) 0.5 (0.2-0.9) 10^3/u L Eos # (Auto) 0.2 (0.0-0.8) 10^3/u L Baso # (Auto) 0.1 (0.0-0.1) 10^3/u L Nucleated RBC % (a uto) 0 % Nucleated RBCs # 0.0 /100WBC Sodium 143 (136-145) mmol/L Potassium 3.7 (3.5-5.1) mmol/L Chloride 100 (98-107) mmol/L Carbon Dioxide 31 H (22-29) mmol/L Anion Gap 15.7 (5-19) BUN 17 (8-23) mg/dL Creatinine 0.7 (0.7-1.2) mg/dL GFR Calculation 111.8 (90-130) mL/min Glucose 272 H (65-115) mg/dL Calculated Osmolal ity 307 H (285-295) mOsm/k g Calcium 8.8 (8.5-10.5) mg/dL Total Bilirubin 0.2 (0.15-1.2) mg/dL AST 15 (0-40) U/L ALT 16 (0-41) U/L Alkaline Phosphata se 113 (40-130) IU/L Troponin T Baselin e 12 (0-15) ng/L Total Protein 6.6 (6.6-8.7) g/dL Albumin 4.0 (3.5-5.2) g/dL Globulin 2.6 (1.3-4.6) g/dL Discharge Plan Discharge Patient Disposition: Home Clinical Impression: Acute exacerbation of chronic obstructive airways disease Condition: Stable Prescriptions: New doxycycline hyclate 100 mg capsule 100 mg PO BID 10 Days Qty: 20 RF: 0 Medrol (Cesar) 4 mg tablets,dose pack See Rx Instructions .ROUTE .COMPLEX Qty: 21 RF: 0 No Action ferrous sulfate [Feosol] 325 mg (65 mg iron) tablet 325 mg PO DAILY RF: 0 naproxen sodium 220 mg capsule 220 mg PO BID PRN (Reason: Pain) 90 Days Qty: 180 RF: 1 omeprazole 40 mg capsule,delayed release(DR/EC) 40 mg PO DAILY RF: 0 omeprazole 40 mg capsule,delayed release(DR/EC) 40 mg PO BID Qty: 28 RF: 0 escitalopram oxalate [Lexapro] 10 mg tablet 10 mg PO DAILY RF: 0 hydrocodone-acetaminophen 7.5-325 mg tablet 1 tab PO TID PRN (Reason: pain) 30 Days Qty: 90 RF: 0 hydrocodone-acetaminophen 7.5-325 mg tablet 1 tab PO TID PRN (Reason: pain) 30 Days Qty: 90 RF: 0 morphine 15 mg tablet extended release 15 mg PO Q12H 30 Days Qty: 60 RF: 0 morphine 15 mg tablet extended release 15 mg PO Q12H 30 Days Qty: 60 RF: 0 Trelegy Ellipta 100-62.5-25 mcg blister with device See Rx Instructions .ROUTE .COMPLEX Qty: 60 RF: 0 rosuvastatin 10 mg tablet 10 mg PO DAILY RF: 0 alendronate 70 mg Tablet 70 mg PO DIRECTED RF: 0 multivitamin Tablet 1 tab PO DAILY RF: 0 aspirin [Aspir-Low] 81 mg Tablet,Delayed Release (Dr/Ec) 81 mg PO DAILY RF: 0 Hold Instructions: Resume on 05/12/20. tamsulosin 0.4 mg Capsule 0.4 mg PO DAILY RF: 0 albuterol sulfate [Ventolin HFA] 90 mcg/actuation Hfa Aerosol Inhaler 1 - 2 puff inhalation QID PRN (Reason: Shortness Of Breath) RF: 0 metformin 750 mg Tablet Extended Release 24 Hr 750 mg PO BID RF: 0 guaifenesin [Mucinex] 600 mg Tablet Extended Release 12hr 600 mg PO BID RF: 0 felodipine 5 mg Tablet Extended Release 24 Hr 5 mg PO DAILY RF: 0 Januvia 100 mg Tablet 100 mg PO DAILY RF: 0 Discharge Orders: Discharge ED (Routine); Ordered 12/26/20 Ordered By: Angel Griffith Referrals: Rossana Ruggiero MD [Primary Care Provider] - Discharge Diet: Usual diet Discharge Activity: Increase activity as tolerated Patient Instructions: Opioid Safety Activity Restrictions/Additional Instructions: Follow-up with your primary care doctor in the next week. Return to emergency room if any further problems. Coding Level of Care Code ED Creative Services Manager for Camila Fwd Exam Comprehensive
[2020-12-26 07:56] LABS: Basophils # 0.1 10^3/uL (0.0-0.1); Basophils % 0.4 %; Eosinophils # 0.2 10^3/uL (0.0-0.8); Eosinophils % 1.5 %; Hematocrit 34.5 % (42.0-52.0); Hemoglobin 11.5 g/dL (11.7-16.6); Lymphocytes # 1.2 10^3/uL (0.8-4.8); Lymphocytes % 10.5 %; Mean Corpuscular HGB Conc 33.3 g/dL (30.0-36.0); Mean Corpuscular Hemoglobin 30.6 pg (28.0-34.0); Mean Corpuscular Volume 91.8 fl (80-94); Monocytes # 0.5 10^3/uL (0.2-0.9); Monocytes % 4.1 %; Neutrophils # 9.72 10^3/uL (1.8-7.7); Neutrophils % 83.2 %; Nucleated Red Blood Cells % 0 %; Platelet Count 187 10^3/cmm (130-400); Red Blood Count 3.76 10^6/uL (4.1-5.3); Red Cell Distribution Width 12.3 % (12.1-15.1); White Blood Count 11.7 10^3/uL (4.0-10.0)
[2020-12-26 07:59] VITALS: BP 128/68; PULSE 81; RESP 20; O2SAT 97
[2020-12-26 08:15] LABS: Alanine Aminotransferase 16 U/L (0-41); Alkaline Phosphatase 113 IU/L (40-130); Anion Gap 15.7 (5-19); Aspartate Amino Transferase 15 U/L (0-40); Blood Urea Nitrogen 17 mg/dL (8-23); Calcium 8.8 mg/dL (8.5-10.5); Carbon Dioxide 31 mmol/L (22-29); Chloride 100 mmol/L (98-107); Globulin 2.6 g/dL (1.3-4.6); Glomerular Filtration Rate 111.8 mL/min (90-130); Glucose 272 mg/dL (65-115); Osmolality Calculated 307 mOsm/kg (285-295); Potassium 3.7 mmol/L (3.5-5.1); Sodium 143 mmol/L (136-145); Total Bilirubin 0.2 mg/dL (0.15-1.2); Total Protein 6.6 g/dL (6.6-8.7)
[2020-12-26 08:16] LABS: Troponin(5th) Baseline 12 ng/L (0-15)
--- NOTE | 2020-12-26 08:57 | ECG_ITS ---
[facility] Test Date: 2020-12-26 Pat Name: Moses Cardoza Department: Room: Gender: Male Oxygen Tank Filler: : 1950 Requested By: Angel Cedillo Order Number: [id number] Rafiq MD: Rafaela Bradley M.D. Measurements Intervals [place] Rate: 83 P: 66 [place]: 148 QRS: 39 QRSD: 94 T: 92 QT: 372 QTc: 439 Interpretive Statements SINUS RHYTHM NONSPECIFIC T-WAVE ABNORMALITY Compared to ECG 03/08/2020 20:25:23 No significant changes Electronically Signed On 12-26-2020 19:21:43 CDT by Rafaela Bradley M.D. [id number] f
[2020-12-26 09:39] VITALS: BP 135/75; PULSE 91; RESP 18; O2SAT 95
[2020-12-26 10:35] VITALS: BP 141/78; PULSE 71; RESP 20; O2SAT 98
[2020-12-26 10:56] LABS: Troponin 5 2HR 15.33 ng/L (0-15); Troponin 5 2HR Delta 3.33 ABS# (0-10)
== END 2020-12-26 10:31 | disposition home or self-care (01) ==
PROVIDERS: Emergency Provider Family Medicine; PCP Family Medicine
DX: J44.1 Chronic obstructive pulmonary disease with (acute) exacerbation (principal); Z79.82 Long term (current) use of aspirin; Z79.84 Long term (current) use of oral hypoglycemic drugs; E11.9 Type 2 diabetes mellitus without complications; Z85.118 Personal history of other malignant neoplasm of bronchus and lung; Z87.891 Personal history of nicotine dependence; Z90.2 Acquired absence of lung [part of]
CPT/HCPCS: 36415; 71045; 80053; 84484; 85025; 93005; 99283

== ENCOUNTER 2021-01-10 12:17 | Outpatient (CLI) | payer MEDICARE, MEDICAID, SELFPAY ==
[2021-01-10 13:12] LABS: Basophils # 0.1 10^3/uL (0.0-0.1); Basophils % 0.7 %; Eosinophils # 0.2 10^3/uL (0.0-0.8); Eosinophils % 2.5 %; Hematocrit 35.1 % (42.0-52.0); Hemoglobin 11.4 g/dL (11.7-16.6); Lymphocytes % 10.7 %; Mean Corpuscular HGB Conc 32.5 g/dL (30.0-36.0); Mean Corpuscular Hemoglobin 29.5 pg (28.0-34.0); Mean Corpuscular Volume 90.9 fl (80-94); Mean Platelet Volume 10.5 fL (7.4-10.4); Monocytes # 0.5 10^3/uL (0.2-0.9); Monocytes % 5.7 %; Neutrophils # 7.39 10^3/uL (1.8-7.7); Neutrophils % 80.1 %; Nucleated Red Blood Cells % 0 %; Platelet Count 233 10^3/cmm (130-400); Red Blood Count 3.86 10^6/uL (4.1-5.3); Red Cell Distribution Width 12.5 % (12.1-15.1); White Blood Count 9.2 10^3/uL (4.0-10.0)
[2021-01-10 13:37] LABS: Ferritin 314 ng/mL (30-400); Iron 61 ug/dL (59-158); Percent Saturation 21.7 % (20-50); Total Iron Binding Capacity 280 mcg/dl; Unsaturated Iron Binding 219 ug/dL (112-347)
--- NOTE | 2021-01-10 17:30 | ONC FU_ITS ---
Dr. Yo follow up note Patient: Moses Cardoza Unit #: [id number]: 1950 Dicatated By: Hussein Yo M.D.Date of Visit:Jan 10, 2021 Onc Med Follow-up/Prog Note History of Present Illness: Mr. Moses Cardoza, 70-year-old gentleman with history of emphysema now on home oxygen, underwent right lower lobectomy on 10/06/2014 for localized squamous cell carcinoma. Postop period was complicated with pleural effusion for which he underwent decortication. Now with no evidence of disease as per last CT scan of abdomen pelvis done on 01/20/2016 in [facility]. As per patient no further treatment was offered as it was a early stage disease and he was followed by medical oncologist and thoracic surgeon there at [facility] in [place]. CT scan of the chest done on 07/15/2017 showed no evidence of residual recurrence of disease CT scan of chest done on 06/17/2018 showed no evidence of residual, recurrent or metastatic disease. Severe chronic emphysema, stable postoperative changes from prior right lower lobectomy. Follow-up CT scan of chest done on 02/18/2019 showed post operative changes due to right lower lobectomy, no evidence of residual or recurrence of disease CT scan of chest done on February 17, 2020 showed right lower lobe lobectomy with chronic changes negative for acute cardiopulmonary disease He is on home oxygen for severe emphysema/COPD On oral iron for iron deficiency anemia, Was discontinued because of intolerance Status post Injectafer 750 mg weekly x2 in June 2020 Came for follow-up, denies any specific complaint except off and on fresh blood per rectum for the last for 5 days, no abdominal pain, no pain in anal area, no jaundice, no hemoptysis or hematemesis, no hematuria or dysuria, no abdominal fullness. No diarrhea or constipation. Patient had colonoscopy done in April 2020 but it was incomplete evaluation due to poor prep. Denies any hemoptysis or hematemesis, he is on no home oxygen, comfortable Medications: Acetaminophen Capsule Oral PRN, Albuterol Sulfate HFA Aerosol, solution Inhalation PRN, Alendronate Sodium 1 Tablet (of 70 mg/75mL) Solution Oral q 7 days, Aleve 1 (220 mg) Tablet Oral PRN, Aspirin 1 (81 mg) Tablet, enteric coated Oral daily, Calcium 1 (600 mg) Tablet Oral b.i.d., Crestor 1 (10 mg) Tablet Oral at bedtime, DULoxetine HCl 1 (30 mg) Capsule Delayed Release Particles Oral daily, Fosamax 1 (70 mg) Tablet Oral q 7 days, Hydrocodone-Acetaminophen 1 (7.5-325 mg) Tablet Oral t.i.d. PRN, Lexapro 1 (20 mg) Tablet Oral daily, MetFORMIN HCl ER 1 (750 mg) Tablet SR 24 HR Oral daily, MethIMAzole 2 Tablet (of 10 mg) Oral daily, Mucinex DM 1 (30-600 mg) Tablet SR 12 HR Oral b.i.d., Multivitamin Adult 1 Tablet Oral daily, Pepcid 1 (20 mg) Tablet Oral daily PRN, Senna 1 (8.6 mg) Capsule Oral b.i.d., Stiolto Respimat 1 Puff(s) (of 2.5-2.5 mcg/act) Aerosol, solution Inhalation daily, TraMADol HCl 1 (50 mg) Tablet Oral q 12 hours Allergies: No Known Allergies. Review of Systems: Review of Systems is not available for this patient. Vital Signs: Vitals are not available for this patient. Performance Status: 1 - No physically strenuous activity, but ambulatory and able to carry out light or sedentary work (e.g. office work, light house work). (ECOG) Physical Examination: ENMT - No mouth sores, no thrush, no jaundice, Respiratory - Poor air entry otherwise clear, Cardiovascular - Regular rate and rhythm of heart, Abdomen - Soft, bowel sounds present, Extremities - No visible edema. Lab/Imaging: Most recent lab results are not available for this patient. 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 Size of tumor 4 x 3.8 x 2.9 cm, moderately to poorly differentiated, no pleural involvement tumor was present within 1-2 mm of inked pleural margin however all margins were clear no lymphovascular invasion seen pT2a 12 mediastinal lymph nodes were removed showed no evidence of metastatic disease N0 Mx stage IB Now being observed CT scan of chest done on 01/20/2016 at [facility] in [facility] showed volume loss noted within the right hemithorax with small right-sided pleural effusion, these are thought to be postsurgical changes, centrilobular emphysematous changes are noted with minimal scarring/atelectasis in the right middle lobe CT scan of the chest done on 07/15/2017 showed no evidence of residual or recurrent or metastatic neoplasm, status post right lower lobectomy with associated postoperative changes, severe chronic emphysematous CT scan of chest done on 06/17/2018 showed no evidence of recurrent or residual disease, postoperative changes from prior right lower lobectomy, severe emphysema Iron deficiency anemia , on oral iron, Oral iron discontinued on May 20, 2020 because of intolerance and persistent iron deficiency anemia, Was given Injectafer 750 mg IV weekly x2 in June 2020 with excellent response, EGD done on May 10, 2020 shows mild inflammatory/mucosal changes in the distal esophagus but biopsy was benign, stomach shows mild hiatal hernia. Duodenal exam was unremarkable, colonoscopy without any abnormality Plan: Discussed with patient regarding his labs white blood count 9.2 hemoglobin 11.4 hematocrit 35.1, platelets 233,000 iron studies shows iron saturation 21%, ferritin 314, iron 61 Clinically, patient is doing reasonably well, no with off and on fresh blood per rectum for the last 5 days and follow-up labs shows drop in his hemoglobin to 11.4 g from 12.2 g in September 2020 and further drop in his iron stores although still within normal range Patient had EGD colonoscopy done in April 2020 but at that time his colonoscopy was not completed due to poor prep, now with fresh blood per rectum concern is regarding GI pathology. So we will refer him back to Dr. Richards for reevaluation and for colonoscopy evaluation Patient return to clinic in 1 month with CBC and iron studies, patient was advised in case there is a worsening of bleeding per rectum, he need to call us or go to hospital for evaluation. Signed By: Hussein Yo M.D. <<Signature on File>>
== END 2021-01-10 12:18 | disposition home or self-care (01) ==
PROVIDERS: PCP Family Medicine; Visit Provider Internal Medicine Hematology & Oncology
DX: Z08 Encounter for follow-up examination after completed treatment for malignant neoplasm (principal); Z85.118 Personal history of other malignant neoplasm of bronchus and lung; D50.9 Iron deficiency anemia, unspecified; K62.5 Hemorrhage of anus and rectum; Z79.899 Other long term (current) drug therapy; Z79.84 Long term (current) use of oral hypoglycemic drugs; J43.9 Emphysema, unspecified; Z92.21 Personal history of antineoplastic chemotherapy; Z99.81 Dependence on supplemental oxygen
CPT/HCPCS: 36415; 82728; 83540; 83550; 85025; 99214

== ENCOUNTER 2021-01-26 04:49 | Emergency (ER) | payer MEDICARE, MEDICAID, SELFPAY ==
[2021-01-26] VITALS (7 sets, daily range): BP systolic 125–150; BP diastolic 72–96; PULSE 88–139; RESP 14–24; TEMP 37; O2SAT 94–100; BMI 23.7
--- NOTE | 2021-01-26 04:52 | ED_ITS ---
Documented by User: Eduardo Pike MD 01/28/21 04:48 HPI - SOB/Dyspnea General: Chief Complaint: Shortness of Breath/Dyspnea Stated Complaint: sob Time Seen by Provider: 01/26/21 04:52 History of Present Illness: HPI Narrative: Mr. Cardoza is a 70-year-old gentleman with significant past medical history of COPD with chronic hypoxic respiratory failure on 5 L at baseline who presents emergency department due to shortness of breath. He reports at baseline he has limited ability to perform ADLs given degree of shortness of breath. He went to bed okay last night however when he woke up he felt more short of breath when he laid back down. This recurred a second time and so he decided to come in. He denies associated worsening cough, fever, or infectious symptoms. He reports compliance with his medication regimen. Overall the intensity of symptoms varies and is somewhat positional. Moderate to severe in intensity. No other specific exacerbating or alleviating factors identified Review of Systems General: Reports: 10 or more systems reviewed and unremarkable except in HPI and below PFSH ED PFSH: Medical History Chronic low back pain with left-sided sciatica COPD (chronic obstructive pulmonary disease) GERD (gastroesophageal reflux disease) Low back pain of over 3 months duration Lung cancer Type 2 diabetes mellitus Surgical History H/O esophagogastroduodenoscopy (05/10/20) History of lobectomy of lung right lung-Dr. Hwang -[place] Hx of cholecystectomy Hx of eye surgery bilat-Dr. Navarrete did right and Dr. Perez in [place] Hx of kyphoplasty 07/05/[address] Powell Status post colonoscopy (05/11/20) normal Family History Brother Cancer Diabetes Heart disease Social History Quit status (tobacco): has quit using tobacco Year quit tobacco: 2016 - PPD x 45 Years Second hand smoke exposure: No Alcohol intake: never Lives independently: Yes Household members: none Marital status: service: No Current occupational status: disabled History of recent travel: No Current gender identity: Male Physical Exam Narrative: EXAM NARRATIVE: GENERAL/CONSTITUTIONAL -chronically ill-appearing. No acute distress. Eyes - PERRL, no conjunctival injection ENMT - Atraumatic external nose and ears. Moist mucous membranes NECK - supple. trachea midline CARDIOVASCULAR - regular rate and rhythm. Peripheral pulses 2+ and equal RESPIRATORY -diminished to auscultation bilaterally. Tachypnea with increased respiratory effort ABDOMEN/GI - Nontender/Nondistended. MSK - Extremities without obvious deformity or tenderness to palpation SKIN - Warm, Dry NEURO - alert and appropriately oriented. Moves all extremities equally. Course ED course: - Patient was seen and evaluated by me at bedside - Patient placed on cardiac monitors, IV access obtained - Initial evaluation notable for somewhat ill appearance, increased respiratory effort. -Symptom treatment ordered - Labs notable for minimal leukocytosis. Metabolic panel without significant abnormality to explain symptoms. ABG with mildly increased PCO2 however normal pH. - Imaging notable for no lobar consolidation -Called back to patient's room for increased work of breathing and subjective increased shortness of breath. Lung sounds similar. Will trial BiPAP. Patient care handed off to day ED physician Dr Smith pending reassessment. If patient has improvement in symptoms and tolerates time off BiPAP he is at his baseline oxygen and likely can be discharged home with COPD exacerbation Vital Signs: Vital signs: Vital Signs Temperature 98.6 F 01/26/21 04:55 Pulse Rate 119 H 01/26/21 10:20 Respiratory Rate 24 H 01/26/21 10:20 Blood Pressure 148/74 01/26/21 10:20 Pulse Oximetry 95 01/26/21 10:20 MDM - SOB/Dyspnea Medical Records: Attestation: I reviewed the patient's medical records. Lab Data: Attestation: I reviewed the patient's lab results. Labs: Lab Results 01/26/21 01/26/21 01/26/21 05:00 05:00 05:00 WBC 10.7 10^3/uL H 10 ^3/uL (4.0-10.0) RBC 4.05 10^6/uL L 10 ^6/uL (4.1-5.3) Hgb 11.9 g/dL g/dL (11.7-16.6) Hct 36.5 % L % (42.0-52.0) MCV 90.1 fl fl (80-94) MCH 29.4 pg pg (28.0-34.0) MCHC 32.6 g/dL g/dL (30.0-36.0) RDW 12.5 % % (12.1-15.1) Plt Count 172 10^3/cmm 10^3 /cmm (130-400) MPV 11.5 fL H fL (7.4-10.4) Neut % (Auto) 67.0 % % Lymph % (Auto) 22.9 % % [place] % (Auto) 6.6 % % Eos % (Auto) 2.8 % % Baso % (Auto) 0.4 % % Neut # (Auto) 7.14 10^3/uL 10^3 /uL (1.8-7.7) Lymph # (Auto) 2.4 10^3/uL 10^3/ uL (0.8-4.8) [place] # (Auto) 0.7 10^3/uL 10^3/ uL (0.2-0.9) Eos # (Auto) 0.3 10^3/uL 10^3/ uL (0.0-0.8) Baso # (Auto) 0.0 10^3/uL 10^3/ uL (0.0-0.1) Nucleated RBC % (a uto) 0 % % Nucleated RBCs # 0.0 /100WBC /100W BC Specimen Type Sample Site ABG pH ABG pCO2 ABG pO2 ABG HCO3 ABG Base Excess Singh Test Hematocrit Hgb O2 Saturation Carboxyhemoglobin Methemoglobin Total Hemoglobin O2 Delivery Device O2 Liters/Min FiO2 Property Damage Claims Adjustor ID Sodium 139 mmol/L mmol/L (136-145) Potassium 4.5 mmol/L mmol/L (3.5-5.1) Chloride 98 mmol/L mmol/L (98-107) Carbon Dioxide 28 mmol/L mmol/L (22-29) Anion Gap 17.5 (5-19) BUN 14 mg/dL mg/dL (8-23) Creatinine 0.7 mg/dL mg/dL (0.7-1.2) GFR Calculation 111.8 mL/min mL/m in (90-130) Glucose 267 mg/dL H mg/dL (65-115) Calculated Osmolal ity 298 mOsm/kg H mOs m/kg (285-295) Lactic Acid Calcium 9.5 mg/dL mg/dL (8.5-10.5) Total Bilirubin 0.2 mg/dL mg/dL (0.15-1.2) AST 27 U/L U/L (0-40) ALT 19 U/L U/L (0-41) Alkaline Phosphata se 145 IU/L H IU/L (40-130) Troponin T Baselin e 7 ng/L ng/L (0-15) Troponin T 120 Min [place] Troponin T C-Reactive Protein 19.1 mg/L H mg/L (0.0-4.9) NT-Pro-B Natriuret Pep 86 pg/mL pg/mL (0-125) Total Protein 7.3 g/dL g/dL (6.6-8.7) Albumin 4.2 g/dL g/dL (3.5-5.2) Globulin 3.1 g/dL g/dL (1.3-4.6) Procalcitonin 0.06 ng/mL ng/mL (0-0.5) SARS-CoV-2 Ag (Rap id) 01/26/21 01/26/21 01/26/21 05:10 05:20 05:30 WBC RBC Hgb Hct MCV MCH MCHC RDW Plt Count MPV Neut % (Auto) Lymph % (Auto) [place] % (Auto) Eos % (Auto) Baso % (Auto) Neut # (Auto) Lymph # (Auto) [place] # (Auto) Eos # (Auto) Baso # (Auto) Nucleated RBC % (a uto) Nucleated RBCs # Specimen Type Arterial Sample Site Brachial, right ABG pH 7.37 (7.35-7.45) ABG pCO2 52.4 mmHg H mmHg (35-45) ABG pO2 82.0 mmHg mmHg (80.0-100.0) ABG HCO3 30.0 mmol/L H mmo l/L (22-26) ABG Base Excess 3.6 mmol/L H mmol /L (-2.0-2.0) Singh Test N/a Hematocrit 37.9 % L % (42-52) Hgb O2 Saturation 94.7 % L % (95-100) Carboxyhemoglobin 1.0 %THgb %THgb (0.4-20.1) Methemoglobin 0.9 % % (0.4-1.5) Total Hemoglobin 12.4 g/dL L g/dL (14-18) O2 Delivery Device Nc O2 Liters/Min 5.0 % % FiO2 40.0 % % Property Damage Claims Adjustor ID Rieri Sodium Potassium Chloride Carbon Dioxide Anion Gap BUN Creatinine GFR Calculation Glucose Calculated Osmolal ity Lactic Acid 1.8 mmol/L mmol/L (0.5-2.2) Calcium Total Bilirubin AST ALT Alkaline Phosphata se Troponin T Baselin e Troponin T 120 Min [place] Troponin T C-Reactive Protein NT-Pro-B Natriuret Pep Total Protein Albumin Globulin Procalcitonin SARS-CoV-2 Ag (Rap id) Negative (Negative) 01/26/21 06:29 WBC RBC Hgb Hct MCV MCH MCHC RDW Plt Count MPV Neut % (Auto) Lymph % (Auto) [place] % (Auto) Eos % (Auto) Baso % (Auto) Neut # (Auto) Lymph # (Auto) [place] # (Auto) Eos # (Auto) Baso # (Auto) Nucleated RBC % (a uto) Nucleated RBCs # Specimen Type Sample Site ABG pH ABG pCO2 ABG pO2 ABG HCO3 ABG Base Excess Singh Test Hematocrit Hgb O2 Saturation Carboxyhemoglobin Methemoglobin Total Hemoglobin O2 Delivery Device O2 Liters/Min FiO2 Property Damage Claims Adjustor ID Sodium Potassium Chloride Carbon Dioxide Anion Gap BUN Creatinine GFR Calculation Glucose Calculated Osmolal ity Lactic Acid Calcium Total Bilirubin AST ALT Alkaline Phosphata se Troponin T Baselin e Troponin T 120 Min [place] 13.36 ng/L ng/L (0-15) Delta Troponin T 6.36 ABS# ABS# (0-10) C-Reactive Protein NT-Pro-B Natriuret Pep Total Protein Albumin Globulin Procalcitonin SARS-CoV-2 Ag (Rap id) Discharge Plan Discharge Patient Disposition: Home Clinical Impression: Acute exacerbation of chronic obstructive airways disease Condition: Stable Prescriptions: New prednisone 20 mg tablet 40 mg PO DAILY 5 Days RF: 1 No Action ferrous sulfate [Feosol] 325 mg (65 mg iron) tablet 325 mg PO DAILY RF: 0 naproxen sodium 220 mg capsule 220 mg PO BID PRN (Reason: Pain) 90 Days Qty: 180 RF: 1 omeprazole 40 mg capsule,delayed release(DR/EC) 40 mg PO DAILY RF: 0 omeprazole 40 mg capsule,delayed release(DR/EC) 40 mg PO BID Qty: 28 RF: 0 escitalopram oxalate [Lexapro] 10 mg tablet 10 mg PO DAILY RF: 0 hydrocodone-acetaminophen 7.5-325 mg tablet 1 tab PO TID PRN (Reason: pain) 30 Days Qty: 90 RF: 0 hydrocodone-acetaminophen 7.5-325 mg tablet 1 tab PO TID PRN (Reason: pain) 30 Days Qty: 90 RF: 0 morphine 15 mg tablet extended release 15 mg PO Q12H 30 Days Qty: 60 RF: 0 morphine 15 mg tablet extended release 15 mg PO Q12H 30 Days Qty: 60 RF: 0 lactulose 10 gram/15 mL solution 10 g PO BID 30 Days Qty: 900 RF: 2 Trelegy Ellipta 100-62.5-25 mcg blister with device See Rx Instructions .ROUTE .COMPLEX Qty: 60 RF: 0 rosuvastatin 10 mg tablet 10 mg PO DAILY RF: 0 Medrol (Cesar) 4 mg tablets,dose pack See Rx Instructions .ROUTE .COMPLEX Qty: 21 RF: 0 alendronate 70 mg Tablet 70 mg PO DIRECTED RF: 0 multivitamin Tablet 1 tab PO DAILY RF: 0 aspirin [Aspir-Low] 81 mg Tablet,Delayed Release (Dr/Ec) 81 mg PO DAILY RF: 0 Hold Instructions: Resume on 05/12/20. tamsulosin 0.4 mg Capsule 0.4 mg PO DAILY RF: 0 albuterol sulfate [Ventolin HFA] 90 mcg/actuation Hfa Aerosol Inhaler 1 - 2 puff inhalation QID PRN (Reason: Shortness Of Breath) RF: 0 metformin 750 mg Tablet Extended Release 24 Hr 750 mg PO BID RF: 0 guaifenesin [Mucinex] 600 mg Tablet Extended Release 12hr 600 mg PO BID RF: 0 felodipine 5 mg Tablet Extended Release 24 Hr 5 mg PO DAILY RF: 0 Januvia 100 mg Tablet 100 mg PO DAILY RF: 0 Discharge Orders: Discharge ED (Routine); Ordered 01/26/21 Ordered By: Jono Smith Referrals: Rossana Ruggiero MD [Primary Care Provider] - (follow up with family doctor tomorrow for recheck. ) Discharge Diet: Advance as tolerated Discharge Activity: Increase activity as tolerated Patient Instructions: COPD (Chronic Obstructive Pulmonary Disease) (ED), Opioid Safety Activity Restrictions/Additional Instructions: Continue home nebulizer and inhalers as directed. Add prednisone prescription today. Return if worse. Coding Level of Care Code ED Property Preservation Specialist for Chg Fwd Documented by User: Jono Smith MD 01/26/21 08:11 HPI - SOB/Dyspnea General: Chief Complaint: Shortness of Breath/Dyspnea Stated Complaint: sob Time Seen by Provider: 01/26/21 04:52 PFSH ED PFSH: Medical History Chronic low back pain with left-sided sciatica COPD (chronic obstructive pulmonary disease) GERD (gastroesophageal reflux disease) Low back pain of over 3 months duration Lung cancer Type 2 diabetes mellitus Surgical History H/O esophagogastroduodenoscopy (05/10/20) History of lobectomy of lung right lung-Dr. Hwang -[place] Hx of cholecystectomy Hx of eye surgery bilat-Dr. Navarrete did right and Dr. Perez in [place] Hx of kyphoplasty 07/05/[address] Powell Status post colonoscopy (05/11/20) normal Family History Brother Cancer Diabetes Heart disease Social History Quit status (tobacco): has quit using tobacco Year quit tobacco: 2016 - PPD x 45 Years Second hand smoke exposure: No Alcohol intake: never Lives independently: Yes Household members: none Marital status: service: No Current occupational status: disabled History of recent travel: No Current gender identity: Male Course Vital Signs: Vital signs: Vital Signs Temperature 98.6 F 01/26/21 04:55 Pulse Rate 119 H 01/26/21 10:20 Respiratory Rate 24 H 01/26/21 10:20 Blood Pressure 148/74 01/26/21 10:20 Pulse Oximetry 95 01/26/21 10:20 MDM - SOB/Dyspnea MDM Narrative: Medical decision making narrative: Assumed care from Dr. Pike at 0615. We will try BiPAP. Patient is anxious and tachypneic. It is arterial pH is normal and oxygen is normal. PCO2 is in 50s. 0745: Patient with less shortness of breath on oxygen by nasal cannula. Patient states he feels better. Oxygen 95% on 4 L by nasal cannula. He states he normally wears 4 L/min at home. 0810: Patient continues to feel fine. He still is a little anxious. His heart rate is around 125 and sinus tachycardia. However this is due to the large amount of albuterol he received earlier. His lungs are clear. His ox s aturations 95% on his normal oxygen level 4 L/min. His ABG was essentially normal except for slightly elevated CO2. He seems of improved quite a bit after BiPAP use. Therefore, will discharge patient home. Patient has home nebulizer and home inhalers. He states he has oxygen bottle being brought to him now. Lab Data: Attestation: I reviewed the patient's lab results. Labs: Lab Results 01/26/21 01/26/21 01/26/21 05:00 05:00 05:00 WBC 10.7 10^3/uL H 10 ^3/uL (4.0-10.0) RBC 4.05 10^6/uL L 10 ^6/uL (4.1-5.3) Hgb 11.9 g/dL g/dL (11.7-16.6) Hct 36.5 % L % (42.0-52.0) MCV 90.1 fl fl (80-94) MCH 29.4 pg pg (28.0-34.0) MCHC 32.6 g/dL g/dL (30.0-36.0) RDW 12.5 % % (12.1-15.1) Plt Count 172 10^3/cmm 10^3 /cmm (130-400) MPV 11.5 fL H fL (7.4-10.4) Neut % (Auto) 67.0 % % Lymph % (Auto) 22.9 % % [place] % (Auto) 6.6 % % Eos % (Auto) 2.8 % % Baso % (Auto) 0.4 % % Neut # (Auto) 7.14 10^3/uL 10^3 /uL (1.8-7.7) Lymph # (Auto) 2.4 10^3/uL 10^3/ uL (0.8-4.8) [place] # (Auto) 0.7 10^3/uL 10^3/ uL (0.2-0.9) Eos # (Auto) 0.3 10^3/uL 10^3/ uL (0.0-0.8) Baso # (Auto) 0.0 10^3/uL 10^3/ uL (0.0-0.1) Nucleated RBC % (a uto) 0 % % Nucleated RBCs # 0.0 /100WBC /100W BC Specimen Type Sample Site ABG pH ABG pCO2 ABG pO2 ABG HCO3 ABG Base Excess Singh Test Hematocrit Hgb O2 Saturation Carboxyhemoglobin Methemoglobin Total Hemoglobin O2 Delivery Device O2 Liters/Min FiO2 Property Damage Claims Adjustor ID Sodium 139 mmol/L mmol/L (136-145) Potassium 4.5 mmol/L mmol/L (3.5-5.1) Chloride 98 mmol/L mmol/L (98-107) Carbon Dioxide 28 mmol/L mmol/L (22-29) Anion Gap 17.5 (5-19) BUN 14 mg/dL mg/dL (8-23) Creatinine 0.7 mg/dL mg/dL (0.7-1.2) GFR Calculation 111.8 mL/min mL/m in (90-130) Glucose 267 mg/dL H mg/dL (65-115) Calculated Osmolal ity 298 mOsm/kg H mOs m/kg (285-295) Lactic Acid Calcium 9.5 mg/dL mg/dL (8.5-10.5) Total Bilirubin 0.2 mg/dL mg/dL (0.15-1.2) AST 27 U/L U/L (0-40) ALT 19 U/L U/L (0-41) Alkaline Phosphata se 145 IU/L H IU/L (40-130) Troponin T Baselin e 7 ng/L ng/L (0-15) Troponin T 120 Min [place] Troponin T C-Reactive Protein 19.1 mg/L H mg/L (0.0-4.9) NT-Pro-B Natriuret Pep 86 pg/mL pg/mL (0-125) Total Protein 7.3 g/dL g/dL (6.6-8.7) Albumin 4.2 g/dL g/dL (3.5-5.2) Globulin 3.1 g/dL g/dL (1.3-4.6) Procalcitonin 0.06 ng/mL ng/mL (0-0.5) SARS-CoV-2 Ag (Rap id) 01/26/21 01/26/21 01/26/21 05:10 05:20 05:30 WBC RBC Hgb Hct MCV MCH MCHC RDW Plt Count MPV Neut % (Auto) Lymph % (Auto) [place] % (Auto) Eos % (Auto) Baso % (Auto) Neut # (Auto) Lymph # (Auto) [place] # (Auto) Eos # (Auto) Baso # (Auto) Nucleated RBC % (a uto) Nucleated RBCs # Specimen Type Arterial Sample Site Brachial, right ABG pH 7.37 (7.35-7.45) ABG pCO2 52.4 mmHg H mmHg (35-45) ABG pO2 82.0 mmHg mmHg (80.0-100.0) ABG HCO3 30.0 mmol/L H mmo l/L (22-26) ABG Base Excess 3.6 mmol/L H mmol /L (-2.0-2.0) Singh Test N/a Hematocrit 37.9 % L % (42-52) Hgb O2 Saturation 94.7 % L % (95-100) Carboxyhemoglobin 1.0 %THgb %THgb (0.4-20.1) Methemoglobin 0.9 % % (0.4-1.5) Total Hemoglobin 12.4 g/dL L g/dL (14-18) O2 Delivery Device Nc O2 Liters/Min 5.0 % % FiO2 40.0 % % Property Damage Claims Adjustor ID Rieri Sodium Potassium Chloride Carbon Dioxide Anion Gap BUN Creatinine GFR Calculation Glucose Calculated Osmolal ity Lactic Acid 1.8 mmol/L mmol/L (0.5-2.2) Calcium Total Bilirubin AST ALT Alkaline Phosphata se Troponin T Baselin e Troponin T 120 Min [place] Troponin T C-Reactive Protein NT-Pro-B Natriuret Pep Total Protein Albumin Globulin Procalcitonin SARS-CoV-2 Ag (Rap id) Negative (Negative) 01/26/21 06:29 WBC RBC Hgb Hct MCV MCH MCHC RDW Plt Count MPV Neut % (Auto) Lymph % (Auto) [place] % (Auto) Eos % (Auto) Baso % (Auto) Neut # (Auto) Lymph # (Auto) [place] # (Auto) Eos # (Auto) Baso # (Auto) Nucleated RBC % (a uto) Nucleated RBCs # Specimen Type Sample Site ABG pH ABG pCO2 ABG pO2 ABG HCO3 ABG Base Excess Singh Test Hematocrit Hgb O2 Saturation Carboxyhemoglobin Methemoglobin Total Hemoglobin O2 Delivery Device O2 Liters/Min FiO2 Property Damage Claims Adjustor ID Sodium Potassium Chloride Carbon Dioxide Anion Gap BUN Creatinine GFR Calculation Glucose Calculated Osmolal ity Lactic Acid Calcium Total Bilirubin AST ALT Alkaline Phosphata se Troponin T Baselin e Troponin T 120 Min [place] 13.36 ng/L ng/L (0-15) Delta Troponin T 6.36 ABS# ABS# (0-10) C-Reactive Protein NT-Pro-B Natriuret Pep Total Protein Albumin Globulin Procalcitonin SARS-CoV-2 Ag (Rap id) Imaging Data^: CXR: Radiologist's impression: Ordering Provider/Ordering MD: Eduardo Pike MD Date of Service: 01/26/21 Procedure(s): XR chest 1V portable [id number] Accession Number(s): [id number] Report Number: [id number] PROCEDURE INFORMATION: Exam: XR Chest Exam date and time: 01/26/2021 6:24 AM Age: 70 years old Clinical indication: Prior surgery; Surgery type: Lobectomy; Patient HX: Patient has sudden onset of tachypnea while in er. Now on bipap. ; Additional info: Worsening SOB TECHNIQUE: Imaging protocol: XR of the chest. Views: 1 view. COMPARISON: CR (CHEST, ) 01/26/2021 5:06 AM FINDINGS: Lungs: Postoperative loss of volume in the right lung and compensatory hyperinflation of the left lung is re-identified. Unchanged chronic scarring in the right lower lung with blunting of the costophrenic angle. Streaky bibasilar atelectasis noted. No pneumothorax or large pleural effusion. Pleural spaces: See Lungs finding. Heart/Mediastinum: Stable cardiomediastinal silhouette. Bones/joints: Degenerative changes of the spine seen. XR/XR chest 1V portable [id number] IMPRESSION: No clear evidence of active cardiopulmonary disease. EKG Data^: EKG 2: Attestation: I personally reviewed and interpreted this EKG as follows: EKG Interpretation Date: 01/26/21 EKG interpretation time: 07:15 Prior EKG tracings: available for review Ischemic changes: non-specific ST-T wave changes Interpretation: Sinus tachycardia with heart rate of 129, NC interval normal. Nonspecific ST-T changes throughout. Normal axis. Normal QRS interval, normal QT interval. Critical Care Time Critical Care Time: Critical Care Time: Yes Total Critical Care Time: 35 Attestation: BiPAP use. See orders. Discharge Plan Discharge Patient Disposition: Home Clinical Impression: Acute exacerbation of chronic obstructive airways disease Condition: Stable Prescriptions: New prednisone 20 mg tablet 40 mg PO DAILY 5 Days RF: 1 No Action ferrous sulfate [Feosol] 325 mg (65 mg iron) tablet 325 mg PO DAILY RF: 0 naproxen sodium 220 mg capsule 220 mg PO BID PRN (Reason: Pain) 90 Days Qty: 180 RF: 1 omeprazole 40 mg capsule,delayed release(DR/EC) 40 mg PO DAILY RF: 0 omeprazole 40 mg capsule,delayed release(DR/EC) 40 mg PO BID Qty: 28 RF: 0 escitalopram oxalate [Lexapro] 10 mg tablet 10 mg PO DAILY RF: 0 hydrocodone-acetaminophen 7.5-325 mg tablet 1 tab PO TID PRN (Reason: pain) 30 Days Qty: 90 RF: 0 hydrocodone-acetaminophen 7.5-325 mg tablet 1 tab PO TID PRN (Reason: pain) 30 Days Qty: 90 RF: 0 morphine 15 mg tablet extended release 15 mg PO Q12H 30 Days Qty: 60 RF: 0 morphine 15 mg tablet extended release 15 mg PO Q12H 30 Days Qty: 60 RF: 0 lactulose 10 gram/15 mL solution 10 g PO BID 30 Days Qty: 900 RF: 2 Trelegy Ellipta 100-62.5-25 mcg blister with device See Rx Instructions .ROUTE .COMPLEX Qty: 60 RF: 0 rosuvastatin 10 mg tablet 10 mg PO DAILY RF: 0 Medrol (Cesar) 4 mg tablets,dose pack See Rx Instructions .ROUTE .COMPLEX Qty: 21 RF: 0 alendronate 70 mg Tablet 70 mg PO DIRECTED RF: 0 multivitamin Tablet 1 tab PO DAILY RF: 0 aspirin [Aspir-Low] 81 mg Tablet,Delayed Release (Dr/Ec) 81 mg PO DAILY RF: 0 Hold Instructions: Resume on 05/12/20. tamsulosin 0.4 mg Capsule 0.4 mg PO DAILY RF: 0 albuterol sulfate [Ventolin HFA] 90 mcg/actuation Hfa Aerosol Inhaler 1 - 2 puff inhalation QID PRN (Reason: Shortness Of Breath) RF: 0 metformin 750 mg Tablet Extended Release 24 Hr 750 mg PO BID RF: 0 guaifenesin [Mucinex] 600 mg Tablet Extended Release 12hr 600 mg PO BID RF: 0 felodipine 5 mg Tablet Extended Release 24 Hr 5 mg PO DAILY RF: 0 Januvia 100 mg Tablet 100 mg PO DAILY RF: 0 Discharge Orders: Discharge ED (Routine); Ordered 01/26/21 Ordered By: Jono Smith Referrals: Rossana Ruggiero MD [Primary Care Provider] - (follow up with family doctor tomorrow for recheck. ) Discharge Diet: Advance as tolerated Discharge Activity: Increase activity as tolerated Patient Instructions: COPD (Chronic Obstructive Pulmonary Disease) (ED), Opioid Safety Activity Restrictions/Additional Instructions: Continue home nebulizer and inhalers as directed. Add prednisone prescription today. Return if worse. Coding Level of Care Code ED Property Preservation Specialist for Camila Ko
--- NOTE | 2021-01-26 05:03 | XRR_ITS ---
PROCEDURE INFORMATION: Exam: XR Chest Exam date and time: 01/26/2021 5:03 AM Age: 70 years old Clinical indication: Shortness of breath; Prior surgery; Surgery type: Lung lobectomy; Patient HX: C/O SOB. History of lung cancer. TECHNIQUE: Imaging protocol: XR of the chest. Views: 1 view. COMPARISON: CR XR chest 1V portable [id number] 12/26/2020 7:02 AM FINDINGS: Lungs: Loss of volume in the right lung after lobectomy noted. Scarring in the right lower lung and blunting of the right costophrenic angle is re-identified. Compensatory hyperinflation of the left lung is again seen. Pleural spaces: See Lungs finding. Heart/Mediastinum: Stable cardiomediastinal silhouette. Bones/joints: Degenerative changes of the spine seen. Soft tissues: Surgical changes in the right chest wall/ribcage noted. XR/XR chest 1V portable [id number] IMPRESSION: No clear evidence of active cardiopulmonary disease. Radiation Dose CTDIVOL = (mGy): DLP = (mGy-cm)
--- NOTE | 2021-01-26 05:04 | ECG_ITS ---
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 Measurements Intervals [place] Rate: 82 P: 62 [place]: 151 QRS: 50 QRSD: 93 T: 79 QT: 359 QTc: 420 Interpretive Statements SINUS RHYTHM NONSPECIFIC T-WAVE ABNORMALITY Compared to ECG 12/26/2020 07:53:54 No significant changes Electronically Signed On 01-27-2021 5:44:21 CDT by Rafaela Bradley M.D. [id number]
[2021-01-26 05:10] LABS: Basophils % 0.4 %; Eosinophils # 0.3 10^3/uL (0.0-0.8); Eosinophils % 2.8 %; Hematocrit 36.5 % (42.0-52.0); Hemoglobin 11.9 g/dL (11.7-16.6); Lymphocytes # 2.4 10^3/uL (0.8-4.8); Lymphocytes % 22.9 %; Mean Corpuscular HGB Conc 32.6 g/dL (30.0-36.0); Mean Corpuscular Hemoglobin 29.4 pg (28.0-34.0); Mean Corpuscular Volume 90.1 fl (80-94); Mean Platelet Volume 11.5 fL (7.4-10.4); Monocytes # 0.7 10^3/uL (0.2-0.9); Monocytes % 6.6 %; Neutrophils # 7.14 10^3/uL (1.8-7.7); Nucleated Red Blood Cells % 0 %; Platelet Count 172 10^3/cmm (130-400); Red Blood Count 4.05 10^6/uL (4.1-5.3); Red Cell Distribution Width 12.5 % (12.1-15.1); White Blood Count 10.7 10^3/uL (4.0-10.0)
[2021-01-26] MEDS: ipratropium-albuterol 3 mL Neb INHALATION ×3 (05:30→05:47)
[2021-01-26 05:31] LABS: Lactic Sepsis W/Reflex 1.8 mmol/L (0.5-2.2)
[2021-01-26 05:35] LABS: Troponin(5th) Baseline 7 ng/L (0-15)
[2021-01-26 05:36] LABS: ABG PCO2 52.4 mmHg (35-45); ABG PH Result 7.37 (7.35-7.45); Arterial Blood Gas Hematocrit 37.9 % (42-52); Base Excess ABG 3.6 mmol/L (-2.0-2.0); Blood Gas Sample Site Brachial, right; Blood Gas Sample Type Arterial; HGB O2 Sat 94.7 % (95-100); Methemoglobin 0.9 % (0.4-1.5); Oxygen Device NC; Total Hemoglobin 12.4 g/dL (14-18)
[2021-01-26 05:43] LABS: NT Pro B Type Natriuretic Pept 86 pg/mL (0-125); Procalcitonin 0.06 ng/mL (0-0.5)
[2021-01-26 05:54] LABS: Alanine Aminotransferase 19 U/L (0-41); Albumin Level 4.2 g/dL (3.5-5.2); Alkaline Phosphatase 145 IU/L (40-130); Anion Gap 17.5 (5-19); Aspartate Amino Transferase 27 U/L (0-40); Blood Urea Nitrogen 14 mg/dL (8-23); C Reactive Protein 19.1 mg/L (0.0-4.9); Calcium 9.5 mg/dL (8.5-10.5); Carbon Dioxide 28 mmol/L (22-29); Chloride 98 mmol/L (98-107); Globulin 3.1 g/dL (1.3-4.6); Glomerular Filtration Rate 111.8 mL/min (90-130); Glucose 267 mg/dL (65-115); Osmolality Calculated 298 mOsm/kg (285-295); Potassium 4.5 mmol/L (3.5-5.1); Sodium 139 mmol/L (136-145); Total Bilirubin 0.2 mg/dL (0.15-1.2); Total Protein 7.3 g/dL (6.6-8.7)
[2021-01-26 06:05] LABS: SARS Covid-2 Antigen Negative (Negative)
[2021-01-26] MEDS: doxycycline 100 MG in sodium chloride 0.9% (plus) 100 ML IV (06:20)
--- NOTE | 2021-01-26 06:24 | XRR_ITS ---
PROCEDURE INFORMATION: Exam: XR Chest Exam date and time: 01/26/2021 6:24 AM Age: 70 years old Clinical indication: Prior surgery; Surgery type: Lobectomy; Patient HX: Patient has sudden onset of tachypnea while in er. Now on bipap. ; Additional info: Worsening SOB TECHNIQUE: Imaging protocol: XR of the chest. Views: 1 view. COMPARISON: CR (CHEST, ) 01/26/2021 5:06 AM FINDINGS: Lungs: Postoperative loss of volume in the right lung and compensatory hyperinflation of the left lung is re-identified. Unchanged chronic scarring in the right lower lung with blunting of the costophrenic angle. Streaky bibasilar atelectasis noted. No pneumothorax or large pleural effusion. Pleural spaces: See Lungs finding. Heart/Mediastinum: Stable cardiomediastinal silhouette. Bones/joints: Degenerative changes of the spine seen. XR/XR chest 1V portable [id number] IMPRESSION: No clear evidence of active cardiopulmonary disease. Radiation Dose CTDIVOL = (mGy): DLP = (mGy-cm)
[2021-01-26 07:00] LABS: Troponin 5 2HR 13.36 ng/L (0-15); Troponin 5 2HR Delta 6.36 ABS# (0-10)
--- NOTE | 2021-01-26 07:04 | ECG_ITS ---
[facility] Test Date: 2021-01-26 Pat Name: Moses Cardoza Department: Room: Gender: Male Slimer: : 1950 Requested By: Eduardo Pike Order Number: [id number] Rafiq MD: Rafaela Bradley M.D. Measurements Intervals [place] Rate: 129 P: 66 PA: 145 QRS: 58 QRSD: 94 T: 177 QT: 297 QTc: 436 Interpretive Statements SINUS TACHYCARDIA ST DEVIATION AND MODERATE T-WAVE ABNORMALITY, CONSIDER LATERAL ISCHEMIA [-0.1+ mV T-WAVE IN I/aVL/V5/V6] Compared to ECG 01/26/2021 05:30:11 Possible ischemia now present Sinus rhythm no longer present T-wave abnormality still present Electronically Signed On 01-27-2021 5:53:24 CDT by Rafaela Bradley M.D. [id number]
--- NOTE | 2021-01-26 07:21 | PC.NURSE ---
ERP states to call RN to remove pt from bipap and place on 4L NC. ticketing clerk calls RT at this time.
== END 2021-01-26 10:17 | disposition home or self-care (01) ==
PROVIDERS: Emergency Medicine; Emergency Provider Family Medicine; PCP Family Medicine
DX: J44.1 Chronic obstructive pulmonary disease with (acute) exacerbation (principal); Z79.82 Long term (current) use of aspirin; Z79.84 Long term (current) use of oral hypoglycemic drugs; E11.9 Type 2 diabetes mellitus without complications; Z85.118 Personal history of other malignant neoplasm of bronchus and lung; Z90.2 Acquired absence of lung [part of]; Z87.891 Personal history of nicotine dependence; Z20.822 Contact with and (suspected) exposure to COVID-19
CPT/HCPCS: 36600; 71045; 80053; 82805; 83605; 83880; 84145; 84484; 85025; 86140; 87426; 93005; 94640; 94660; 96365; 96375; 99284; 99291; J2930; J3490

== ENCOUNTER → 2021-02-09 12:39 | Outpatient (BNVA) | payer MEDICARE, MEDICAID, SELFPAY | PROVIDERS: PCP Family Medicine; Visit Provider Anesthesiology | DX: G89.29 Other chronic pain (principal); M54.42 Lumbago with sciatica, left side; Z79.891 Long term (current) use of opiate analgesic; Z79.1 Long term (current) use of non-steroidal anti-inflammatories (NSAID); Z87.891 Personal history of nicotine dependence | CPT/HCPCS: 99213 ==

== ENCOUNTER 2021-02-16 13:07 | Outpatient (CLI) | payer MEDICARE, MEDICAID, SELFPAY ==
[2021-02-16 13:45] LABS: Basophils % 0.4 %; Eosinophils # 0.1 10^3/uL (0.0-0.8); Eosinophils % 1.8 %; Hematocrit 32.1 % (42.0-52.0); Hemoglobin 10.6 g/dL (11.7-16.6); Lymphocytes % 12.3 %; Mean Corpuscular Hemoglobin 29.5 pg (28.0-34.0); Mean Corpuscular Volume 89.4 fl (80-94); Mean Platelet Volume 10.5 fL (7.4-10.4); Monocytes # 0.5 10^3/uL (0.2-0.9); Monocytes % 5.7 %; Neutrophils # 6.24 10^3/uL (1.8-7.7); Neutrophils % 79.7 %; Nucleated Red Blood Cells % 0 %; Platelet Count 217 10^3/cmm (130-400); Red Blood Count 3.59 10^6/uL (4.1-5.3); Red Cell Distribution Width 12.8 % (12.1-15.1); White Blood Count 7.8 10^3/uL (4.0-10.0)
[2021-02-16 14:03] LABS: Alanine Aminotransferase 10 U/L (0-41); Alkaline Phosphatase 100 IU/L (40-130); Anion Gap 19.2 (5-19); Aspartate Amino Transferase 11 U/L (0-40); Blood Urea Nitrogen 15 mg/dL (8-23); Calcium 9.5 mg/dL (8.5-10.5); Carbon Dioxide 27 mmol/L (22-29); Chloride 97 mmol/L (98-107); Globulin 2.9 g/dL (1.3-4.6); Glomerular Filtration Rate 95.8 mL/min (90-130); Glucose 288 mg/dL (65-115); Osmolality Calculated 299 mOsm/kg (285-295); Potassium 4.2 mmol/L (3.5-5.1); Sodium 139 mmol/L (136-145); Total Bilirubin 0.4 mg/dL (0.15-1.2); Total Protein 6.9 g/dL (6.6-8.7)
--- NOTE | 2021-02-16 16:37 | ONC FU_ITS ---
Dr. Yo follow up note Patient: Moses Cardoza Unit #: [id number]: 1950 Dicatated By: Hussein Yo M.D.Date of Visit:Feb 16, 2021 Onc Med Follow-up/Prog Note History of Present Illness: Mr. Moses Cardoza, 70-year-old gentleman with history of emphysema now on home oxygen, underwent right lower lobectomy on 10/06/2014 for localized squamous cell carcinoma. Postop period was complicated with pleural effusion for which he underwent decortication. Now with no evidence of disease as per last CT scan of abdomen pelvis done on 01/20/2016 in [facility]. As per patient no further treatment was offered as it was a early stage disease and he was followed by medical oncologist and thoracic surgeon there at [facility] in [place]. CT scan of the chest done on 07/15/2017 showed no evidence of residual recurrence of disease CT scan of chest done on 06/17/2018 showed no evidence of residual, recurrent or metastatic disease. Severe chronic emphysema, stable postoperative changes from prior right lower lobectomy. Follow-up CT scan of chest done on 02/18/2019 showed post operative changes due to right lower lobectomy, no evidence of residual or recurrence of disease CT scan of chest done on February 17, 2020 showed right lower lobe lobectomy with chronic changes negative for acute cardiopulmonary disease He is on home oxygen for severe emphysema/COPD On oral iron for iron deficiency anemia, Was discontinued because of intolerance Status post Injectafer 750 mg weekly x2 in June 2020 Came for follow-up, denies any specific complaints except generalized weakness and fatigue patient was in the hospital recently with hematochezia and was evaluated by Dr. Richards and his impression was probably due to hemorrhoids and patient was advised to use stool softener and if hematochezia persist further evaluation was suggested. As per patient he was having off and on fresh blood per rectum can last week. Denies any abdominal pain denies any jaundice denies any hemoptysis or hematemesis denies any chest pain but shortness of breath patient has underlying COPD/emphysema for which she is on home oxygen and he is scheduled to see pulmonology on February 27, 2021. Medications: Albuterol Sulfate HFA Aerosol, solution Inhalation PRN, Aleve 1 (220 mg) Tablet Oral PRN, Aspirin 1 (81 mg) Tablet, enteric coated Oral daily, Calcium 1 (600 mg) Tablet Oral b.i.d., Cetirizine HCl 1 Tablet (of 10 mg) Oral daily, Crestor 1 (10 mg) Tablet Oral at bedtime, DULoxetine HCl 1 (30 mg) Capsule Delayed Release Particles Oral daily, Hydrocodone-Acetaminophen 1 (7.5-325 mg) Tablet Oral t.i.d. PRN, Lexapro 1 (20 mg) Tablet Oral daily, MetFORMIN HCl ER 1 (750 mg) Tablet SR 24 HR Oral daily, MethIMAzole 2 Tablet (of 10 mg) Oral daily, Morphine Sulfate 1 Tablet (of 15 mg) Oral b.i.d., Mucinex DM 1 (30-600 mg) Tablet SR 12 HR Oral b.i.d., Multivitamin Adult 1 Tablet Oral daily, Pepcid 1 (20 mg) Tablet Oral daily PRN, Senna 1 (8.6 mg) Capsule Oral b.i.d., Stiolto Respimat 1 Puff(s) (of 2.5-2.5 mcg/act) Aerosol, solution Inhalation daily Allergies: No Known Allergies. Review of Systems: Review of Systems is not available for this patient. Vital Signs: Performed on Feb 16, 2021 16:18 Height - 70.00 in Weight - 185.6 lbs (LOW) BSA - 2.02 sq.m BMI - 26.63 Temperature - 97.3 F (LOW) Pulse - 111 /min (HIGH) Respiration - 18 /min BP - 96/58 mm(hg) O2 Sat - 91 % (LOW) Pain - 6 Fatigue - 5 Performance Status: 1 - No physically strenuous activity, but ambulatory and able to carry out light or sedentary work (e.g. office work, light house work). (ECOG) Physical Examination: ENMT - No mouth sores, no thrush, no jaundice, Cardiovascular - Regular rate and rhythm of heart, Abdomen - Soft, bowel sounds present, Extremities - No visible edema. Lab/Imaging: Most recent lab results are not available for this patient. 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 Size of tumor 4 x 3.8 x 2.9 cm, moderately to poorly differentiated, no pleural involvement tumor was present within 1-2 mm of inked pleural margin however all margins were clear no lymphovascular invasion seen pT2a 12 mediastinal lymph nodes were removed showed no evidence of metastatic disease N0 Mx stage IB Now being observed CT scan of chest done on 01/20/2016 at [facility] in [facility] showed volume loss noted within the right hemithorax with small right-sided pleural effusion, these are thought to be postsurgical changes, centrilobular emphysematous changes are noted with minimal scarring/atelectasis in the right middle lobe CT scan of the chest done on 07/15/2017 showed no evidence of residual or recurrent or metastatic neoplasm, status post right lower lobectomy with associated postoperative changes, severe chronic emphysematous CT scan of chest done on 06/17/2018 showed no evidence of recurrent or residual disease, postoperative changes from prior right lower lobectomy, severe emphysema Iron deficiency anemia , on oral iron, Oral iron discontinued on May 20, 2020 because of intolerance and persistent iron deficiency anemia, Was given Injectafer 750 mg IV weekly x2 in June 2020 with excellent response, EGD done on May 10, 2020 shows mild inflammatory/mucosal changes in the distal esophagus but biopsy was benign, stomach shows mild hiatal hernia. Duodenal exam was unremarkable, colonoscopy without any abnormality Plan: Discussed with patient regarding his labs white blood count 7.8 hemoglobin 10.6 g compared to 11.4 earlier hematocrit 32.1 platelets 217,000 CMP within normal limits, iron studies pending Clinically, patient is doing well with no new signs symptom except generalized weakness and fatigue which could be multifactorial including progressive anemia due to off and on hematochezia, as per Dr. Richards, patient had EGD and colonoscopy done in April 2020 which was unremarkable, so etiology of off and on hematochezia was considered to be due to hemorrhoids, patient was advised to take stool softener as per patient and hematochezia is improving. His follow-up CBC shows further drop in his hemoglobin, at this point we will try [id number] oral iron and then patient return to clinic in 1 month with CBC and iron studies. Patient was advised in case he has worsening of hematochezia, he need to call Dr. Richards or us. Return to clinic in 1 month with CBC and iron studies Signed By: Hussein Yo M.D. <<Signature on File>>
[2021-02-16 19:23] LABS: Ferritin 405 ng/mL (30-400); Iron 81 ug/dL (59-158); Percent Saturation 30.5 % (20-50); Total Iron Binding Capacity 265 mcg/dl; Unsaturated Iron Binding 184 ug/dL (112-347)
== END 2021-02-16 13:08 | disposition home or self-care (01) ==
PROVIDERS: PCP Family Medicine; Visit Provider Internal Medicine Hematology & Oncology
DX: Z08 Encounter for follow-up examination after completed treatment for malignant neoplasm (principal); Z85.118 Personal history of other malignant neoplasm of bronchus and lung; J43.9 Emphysema, unspecified; D50.9 Iron deficiency anemia, unspecified; K92.1 Melena; Z79.899 Other long term (current) drug therapy
CPT/HCPCS: 36415; 80053; 82728; 83540; 83550; 85025; 99214

== ENCOUNTER → 2021-03-08 13:23 | Outpatient (BNVA) | payer MEDICARE, MEDICAID, SELFPAY | PROVIDERS: PCP Family Medicine; Visit Provider Anesthesiology | DX: G89.29 Other chronic pain (principal); M54.50 Low back pain, unspecified; Z79.891 Long term (current) use of opiate analgesic; Z87.891 Personal history of nicotine dependence | CPT/HCPCS: 99213 ==

== ENCOUNTER 2021-03-24 07:49 | Outpatient (CLI) | payer MEDICARE, MEDICAID, SELFPAY ==
[2021-03-24 09:00] LABS: Basophils % 0.4 %; Eosinophils # 0.2 10^3/uL (0.0-0.8); Eosinophils % 2.4 %; Hematocrit 32.1 % (42.0-52.0); Hemoglobin 10.3 g/dL (11.7-16.6); Lymphocytes # 1.3 10^3/uL (0.8-4.8); Lymphocytes % 16.1 %; Mean Corpuscular HGB Conc 32.1 g/dL (30.0-36.0); Mean Corpuscular Hemoglobin 28.5 pg (28.0-34.0); Mean Corpuscular Volume 88.7 fl (80-94); Mean Platelet Volume 10.7 fL (7.4-10.4); Monocytes # 0.6 10^3/uL (0.2-0.9); Monocytes % 7.5 %; Neutrophils # 5.91 10^3/uL (1.8-7.7); Neutrophils % 73.4 %; Nucleated Red Blood Cells % 0 %; Platelet Count 283 10^3/cmm (130-400); Red Blood Count 3.62 10^6/uL (4.1-5.3); Red Cell Distribution Width 12.8 % (12.1-15.1); White Blood Count 8.1 10^3/uL (4.0-10.0)
[2021-03-24 09:22] LABS: Alanine Aminotransferase 9 U/L (0-41); Albumin Level 3.9 g/dL (3.5-5.2); Alkaline Phosphatase 87 IU/L (40-130); Aspartate Amino Transferase 10 U/L (0-40); Blood Urea Nitrogen 15 mg/dL (8-23); Calcium 8.6 mg/dL (8.5-10.5); Carbon Dioxide 27 mmol/L (22-29); Chloride 99 mmol/L (98-107); Ferritin 344 ng/mL (30-400); Globulin 3.3 g/dL (1.3-4.6); Glomerular Filtration Rate 133.2 mL/min (90-130); Glucose 367 mg/dL (65-115); Iron 49 ug/dL (59-158); Osmolality Calculated 298 mOsm/kg (285-295); Percent Saturation 17.8 % (20-50); Sodium 136 mmol/L (136-145); Total Bilirubin 0.2 mg/dL (0.15-1.2); Total Iron Binding Capacity 275 mcg/dl; Total Protein 7.2 g/dL (6.6-8.7); Unsaturated Iron Binding 226 ug/dL (112-347)
--- NOTE | 2021-03-24 11:07 | ECG_ITS ---
[facility] Test Date: 2021-03-24 Pat Name: Moses Cardoza Department: Room: Gender: Male Property Master: : 1950 Requested By: [place] Order Number: [id number] Rafiq MD: Jaden Quiroz M.D. Measurements Intervals [place] Rate: 67 P: 62 NM: 143 QRS: 50 QRSD: 87 T: 70 QT: 385 QTc: 407 Interpretive Statements SINUS RHYTHM Compared to ECG 01/26/2021 07:11:59 Sinus tachycardia no longer present T-wave abnormality no longer present Possible ischemia no longer present Electronically Signed On 03-25-2021 7:45:52 [employer] by Jaden Quiroz M.D. [id number]
== END 2021-03-24 07:50 | disposition home or self-care (01) ==
PROVIDERS: Internal Medicine Hematology & Oncology; PCP Family Medicine; Visit Provider Nurse Practitioner Family
DX: Z08 Encounter for follow-up examination after completed treatment for malignant neoplasm (principal); Z85.118 Personal history of other malignant neoplasm of bronchus and lung; J90 Pleural effusion, not elsewhere classified; J43.9 Emphysema, unspecified; J98.11 Atelectasis; D50.9 Iron deficiency anemia, unspecified; Z79.899 Other long term (current) drug therapy
CPT/HCPCS: 36415; 80053; 82728; 83540; 83550; 85025; 93005; 99215

== ENCOUNTER 2021-04-24 14:38 | Outpatient (CLI) | payer MEDICARE, MEDICAID, SELFPAY ==
[2021-04-24 15:19] LABS: Basophils % 0.6 %; Eosinophils # 0.2 10^3/uL (0.0-0.8); Eosinophils % 2.8 %; Hematocrit 34.1 % (42.0-52.0); Hemoglobin 10.7 g/dL (11.7-16.6); Lymphocytes % 15.2 %; Mean Corpuscular HGB Conc 31.4 g/dL (30.0-36.0); Mean Corpuscular Hemoglobin 28.1 pg (28.0-34.0); Mean Corpuscular Volume 89.5 fl (80-94); Mean Platelet Volume 10.1 fL (7.4-10.4); Monocytes # 0.4 10^3/uL (0.2-0.9); Monocytes % 6.2 %; Neutrophils # 4.82 10^3/uL (1.8-7.7); Neutrophils % 74.9 %; Nucleated Red Blood Cells % 0 %; Platelet Count 210 10^3/cmm (130-400); Red Blood Count 3.81 10^6/uL (4.1-5.3); Red Cell Distribution Width 12.8 % (12.1-15.1); White Blood Count 6.4 10^3/uL (4.0-10.0)
[2021-04-24 15:48] LABS: Ferritin 341 ng/mL (30-400); Iron 66 ug/dL (59-158); Percent Saturation 24.7 % (20-50); Total Iron Binding Capacity 267 mcg/dl; Unsaturated Iron Binding 201 ug/dL (112-347)
--- NOTE | 2021-04-24 16:31 | ONC FU_ITS ---
Dr. Yo follow up note Patient: Moses Cardoza Unit #: [id number]: 1950 Dicatated By: Hussein Yo M.D.Date of Visit:Apr 24, 2021 Onc Med Follow-up/Prog Note History of Present Illness: Mr. Moses Cardoza, 71 -year-old gentleman with history of emphysema now on home oxygen, underwent right lower lobectomy on 10/06/2014 for localized squamous cell carcinoma. Postop period was complicated with pleural effusion for which he underwent decortication. Now with no evidence of disease as per last CT scan of abdomen pelvis done on 01/20/2016 in [facility]. As per patient no further treatment was offered as it was a early stage disease and he was followed by medical oncologist and thoracic surgeon there at [facility] in [place]. CT scan of the chest done on 07/15/2017 showed no evidence of residual recurrence of disease CT scan of chest done on 06/17/2018 showed no evidence of residual, recurrent or metastatic disease. Severe chronic emphysema, stable postoperative changes from prior right lower lobectomy. Follow-up CT scan of chest done on 02/18/2019 showed post operative changes due to right lower lobectomy, no evidence of residual or recurrence of disease CT scan of chest done on February 17, 2020 showed right lower lobe lobectomy with chronic changes negative for acute cardiopulmonary disease He is on home oxygen for severe emphysema/COPD On oral iron for iron deficiency anemia, Was discontinued because of intolerance Status post Injectafer 750 mg weekly x2 in June 2020 Mr. Cardoza follows up today for evaluation of iron deficiency anemia. He has been evaluated in the past by gastroenterology who determined that his hematochezia was caused from hemorrhoids. He denies any further bleeding. He denies nausea vomiting diarrhea constipation. No abdominal pain. He continues to have fatigue and weakness. Mr. Cardoza states that he discontinued his iron supplements last month after his visit in February. He did not think he needed them any longer. Came for follow-up, denies any specific complaint except off-and-on substernal discomfort/pain for the last 1 week, denies any associated palpitation or shortness of breath, denies any pain radiating to his back or left arm, denies any aggravating or relieving factors. As per patient he usually it comes all of a sudden and last for 4 to 5 minutes and improve on its own. Patient follow with cardiology on regular basis and now scheduled to see his PMD on May 02, 2020. Denies any hemoptysis or hematemesis, denies any nausea or vomiting but off and on indigestion since he is on oral iron which was started last month. Denies any diarrhea but off and on constipation, denies any hemoptysis or hematemesis or jaundice. Medications: Albuterol Sulfate HFA Aerosol, solution Inhalation PRN, Aleve 1 (220 mg) Tablet Oral PRN, Amoxicillin 1 Tablet (of 500 mg) Oral t.i.d., Aspirin 1 (81 mg) Tablet, enteric coated Oral daily, Azithromycin (500 mg) Tablet Oral Take as Directed, Calcium 1 (600 mg) Tablet Oral b.i.d., Cetirizine HCl 1 Tablet (of 10 mg) Oral daily, Crestor 1 (10 mg) Tablet Oral at bedtime, DULoxetine HCl 1 (30 mg) Capsule Delayed Release Particles Oral daily, Hydrocodone-Acetaminophen 1 (7.5-325 mg) Tablet Oral t.i.d. PRN, Lexapro 1 (20 mg) Tablet Oral daily, MetFORMIN HCl ER 1 (750 mg) Tablet SR 24 HR Oral daily, MethIMAzole 2 Tablet (of 10 mg) Oral daily, Morphine Sulfate 1 Tablet (of 15 mg) Oral b.i.d., Mucinex DM 1 (30-600 mg) Tablet SR 12 HR Oral b.i.d., Multivitamin Adult 1 Tablet Oral daily, Pepcid 1 (20 mg) Tablet Oral daily PRN, Senna 1 (8.6 mg) Capsule Oral b.i.d., Stiolto Respimat 1 Puff(s) (of 2.5-2.5 mcg/act) Aerosol, solution Inhalation daily Allergies: No Known Allergies. Review of Systems: Review of Systems is not available for this patient. Vital Signs: Performed on Apr 24, 2021 16:08 Height - 70.00 in Weight - 177 lbs (HIGH) BSA - 1.98 sq.m BMI - 25.40 Temperature - 98.2 F (LOW) Pulse - 100 /min Respiration - 18 /min BP - 109/66 mm(hg) O2 Sat - 97 % Pain - 0 Fatigue - 0 Performance Status: 0 - Fully active, able to carry on all predisease activities without restrictions. (ECOG) Physical Examination: ENMT - No mouth sores, no thrush, no jaundice, Respiratory - Poor air entry otherwise clear, Cardiovascular - Regular rate and rhythm of heart, Abdomen - Soft, bowel sounds present, Extremities - No visible edema. Lab/Imaging: Most recent lab results are not available for this patient. 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 Size of tumor 4 x 3.8 x 2.9 cm, moderately to poorly differentiated, no pleural involvement tumor was present within 1-2 mm of inked pleural margin however all margins were clear no lymphovascular invasion seen pT2a 12 mediastinal lymph nodes were removed showed no evidence of metastatic disease N0 Mx stage IB Now being observed CT scan of chest done on 01/20/2016 at [facility] in [facility] showed volume loss noted within the right hemithorax with small right-sided pleural effusion, these are thought to be postsurgical changes, centrilobular emphysematous changes are noted with minimal scarring/atelectasis in the right middle lobe CT scan of the chest done on 07/15/2017 showed no evidence of residual or recurrent or metastatic neoplasm, status post right lower lobectomy with associated postoperative changes, severe chronic emphysematous CT scan of chest done on 06/17/2018 showed no evidence of recurrent or residual disease, postoperative changes from prior right lower lobectomy, severe emphysema Iron deficiency anemia , on oral iron, Oral iron discontinued on May 20, 2020 because of intolerance and persistent iron deficiency anemia, Was given Injectafer 750 mg IV weekly x2 in June 2020 with excellent response. EGD done on May 10, 2020 shows mild inflammatory/mucosal changes in the distal esophagus but biopsy was benign, stomach shows mild hiatal hernia. Duodenal exam was unremarkable, colonoscopy without any abnormality Plan: Discussed with patient regarding his labs white blood count 6.4 hemoglobin 10.7 g compared to 10.3 g previously hematocrit 34.1 platelets 210,000 iron studies shows iron saturation 24.7% iron 66 ferritin 341 Clinically, patient is doing well with no new signs symptoms except off-and-on substernal discomfort/pain which could be multifactorial including due to oral iron induced gastroesophagitis or musculoskeletal or cardiac. At this point, patient was advised to discontinue oral iron and if pain recur, he need to go to hospital for evaluation. Return to clinic in 1 month with CBC Signed By: Hussein Yo M.D. <<Signature on File>>
== END 2021-04-24 14:39 | disposition home or self-care (01) ==
PROVIDERS: PCP Family Medicine; Visit Provider Internal Medicine Hematology & Oncology
DX: D50.9 Iron deficiency anemia, unspecified (principal); K92.1 Melena; K64.9 Unspecified hemorrhoids; R53.83 Other fatigue; R53.1 Weakness; Z85.118 Personal history of other malignant neoplasm of bronchus and lung
CPT/HCPCS: 36415; 82728; 83540; 83550; 85025; 99214

== ENCOUNTER → 2021-05-10 13:25 | Outpatient (BNVA) | payer MEDICARE, MEDICAID, SELFPAY | PROVIDERS: PCP Family Medicine; Visit Provider Anesthesiology | DX: G89.29 Other chronic pain (principal); M54.42 Lumbago with sciatica, left side; Z87.891 Personal history of nicotine dependence; Z79.891 Long term (current) use of opiate analgesic | CPT/HCPCS: 99213 ==

== ENCOUNTER 2021-05-25 14:14 | Emergency (ER) | payer MEDICARE, MEDICAID, SELFPAY ==
[2021-05-25 14:20] VITALS: BP 138/71; PULSE 102; RESP 16; TEMP 38; O2SAT 96; BMI 23.0
--- NOTE | 2021-05-25 14:20 | ED_ITS ---
HPI - SOB/Dyspnea General: Chief Complaint: Altered Mental Status Stated Complaint: DIFF BREATHING Time Seen by Provider: 05/25/21 14:20 History of Present Illness: HPI Narrative: 71-year-old male presents emergency room with difficulty breathing. He has a kn own history of lung cancer. He normally uses 4 L/min. He is on 6 L initially when he arrives here. He is complaining shortness of breath and cough minimal production no hemoptysis denies chest pain or abdominal pain. MD elicited complaint: shortness of breath and cough Pertinent past history: COPD and other (Lung CA) Onset (ago): hour(s) Timing: constant Severity: mild Exacerbating factors: exertion and coughing Relieving factors: oxygen, rest and bronchodilators Known history of: COPD and other Associated symptoms: Reports cough; Deny abdominal pain, chest congestion, chest pain, diaphoresis, dizziness, extremity pain, fever(s), hemoptysis, lightheadedness, myalgias, nausea, orthopnea, palpitations, paresthesias, polydipsia, polyuria, rash, sense of impending doom, syncope or vomiting Treatment prior to arrival: oxygen Review of Systems Const: Denies: fever(s) or diaphoresis ENMT: Denies: throat pain, ear or mastoid pain, nasal discharge or nasal congestion Card: Denies: chest pain, palpitations, lightheadedness, syncope or orthopnea Resp: Reports: dyspnea and non-productive cough; Denies: hemoptysis or chest congestion GI: Denies: abdominal pain, nausea or vomiting : Denies: flank pain, dysuria, urinary frequency or urinary urgency Musc: Denies: extremity pain Skin/Breast: Denies: rash or pruritus Neuro: Denies: dizziness Endo: Denies: polyuria or polydipsia PFS ED PFSH: Medical History Chronic low back pain with left-sided sciatica COPD (chronic obstructive pulmonary disease) GERD (gastroesophageal reflux disease) Low back pain of over 3 months duration Lung cancer Type 2 diabetes mellitus Surgical History H/O esophagogastroduodenoscopy (05/10/20) History of lobectomy of lung right lung-Dr. Hwang [facility] Hx of cholecystectomy Hx of eye surgery bilat-Dr. Navarrete did right and Dr. Perez in [place] Hx of kyphoplasty 07/05/[address] Powell Status post colonoscopy (05/11/20) normal Family History Brother Cancer Diabetes Heart disease Social History Smoking and tobacco status: former smoker Quit status (tobacco): has quit using tobacco Year quit tobacco: 2015 - PPD x 45 Years Second hand smoke exposure: No Smoking risk assessment/counseling performed?: Yes Alcohol intake: former Year of sobriety/quit date alcohol: 2013 Former alcohol use details: beer Lives independently: Yes Household members: none Marital status: service: No Current occupational status: disabled History of recent travel: No Current gender identity: Male Physical Exam Const: COMMON NORMALS: no acute distress GENERAL APPEARANCE: cooperative and comfortable ORIENTATION/CONSCIOUSNESS: Yes awake, Yes oriented to person, Yes oriented to place and Yes oriented to time HENMT: COMMON NORMALS: normocephalic, atraumatic and hearing grossly normal bilaterally HEAD & SCALP: normocephalic and atraumatic Neck/C-Spine: COMMON NORMALS: no JVD Resp: EFFORT & INSPECTION: Yes pursed lip breathing AUSCULTATION: rhonchi, wheezes, diminished lung sounds and bronchial breath sounds Cardio: COMMON NORMALS: no JVD, regular rate, regular rhythm and No murmurs present (Cardio) RATE: regular rate RHYTHM: regular rhythm GI: COMMON NORMALS: Soft to palpation and No hepatosplenomegaly present AUSCULTATION: Yes normoactive bowel sounds PALPATION: Yes Soft to palpation, No Tenderness to palpation present (GI), No Guarding due to palpation present (GI) and Yes No hepatosplenomegaly present Extremity: COMMON NORMALS: normal to inspection, capillary refill normal, no clubbing, cyanosis or edema, no calf tenderness and no pedal edema Neuro: SENSORIUM/ORIENTATION: Yes oriented to person, Yes oriented to place and Yes oriented to time Skin: COMMON NORMALS: no rashes or lesions noted GENERAL SKIN EXAM: no rashes or lesions noted Course Vital Signs: Vital signs: Vital Signs Temperature 99.3 F 05/25/21 16:29 Pulse Rate 81 05/25/21 16:29 Respiratory Rate 18 05/25/21 19:27 Blood Pressure 143/73 05/25/21 16:29 Pulse Oximetry 95 05/25/21 16:29 MDM - SOB/Dyspnea Medical Decision Making Improved after duo nebs. Patient was also given steroids. He is back at his baseline oxygen is discharged home with Medrol Dosepak doxycycline albuterol rescue inhaler follow-up with his doctor within a week return to the ER if he has problems. 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 No acute chest abnormality identified. Head CT 05/25/21 15:21 IMPRESSION: 1. No acute intracranial hemorrhage or edema. 2. Mild atrophy and mild chronic microvascular ischemic disease. Laboratory Results WBC 14.3 10^3/uL (4.0-10.0) H 05/25/21 15:15 RBC 3.75 10^6/uL (4.1-5.3) L 05/25/21 15:15 Hgb 10.7 g/dL (11.7-16.6) L 05/25/21 15:15 Hct 33.0 % (42.0-52.0) L 05/25/21 15:15 MCV 88.0 fl (80-94) 05/25/21 15:15 MCH 28.5 pg (28.0-34.0) 05/25/21 15:15 MCHC 32.4 g/dL (30.0-36.0) 05/25/21 15:15 RDW 13.2 % (12.1-15.1) 05/25/21 15:15 Plt Count 191 10^3/cmm (130-400) 05/25/21 15:15 MPV 10.1 fL (7.4-10.4) 05/25/21 15:15 Neut % (Auto) 89.2 % 05/25/21 15:15 Lymph % (Auto) 4.8 % 05/25/21 15:15 [place] % (Auto) 4.8 % 05/25/21 15:15 Eos % (Auto) 0.6 % 05/25/21 15:15 Baso % (Auto) 0.3 % 05/25/21 15:15 Neut # (Auto) 12.75 10^3/uL (1.8-7.7) H 05/25/21 15:15 Lymph # (Auto) 0.7 10^3/uL (0.8-4.8) L 05/25/21 15:15 [place] # (Auto) 0.7 10^3/uL (0.2-0.9) 05/25/21 15:15 Eos # (Auto) 0.1 10^3/uL (0.0-0.8) 05/25/21 15:15 Baso # (Auto) 0.1 10^3/uL (0.0-0.1) 05/25/21 15:15 Nucleated RBC % (auto) 0 % 05/25/21 15:15 Nucleated RBCs # 0.0 /100WBC 05/25/21 15:15 Specimen Type Arterial 05/25/21 16:34 Sample Site Radial, right 05/25/21 16:34 ABG pH 7.43 (7.35-7.45) 05/25/21 16:34 ABG pCO2 47.9 mmHg (35-45) H 05/25/21 16:34 ABG pO2 80.6 mmHg (80.0-100.0) 05/25/21 16:34 ABG HCO3 31.8 mmol/L (22-26) H 05/25/21 16:34 ABG O2 Saturation 96.8 05/25/21 16:34 ABG Base Excess 6.5 mmol/L (-2.0-2.0) H 05/25/21 16:34 Singh Test Pos 05/25/21 16:34 A-a O2 Gradient 21.6 mmHg (5-10) H 05/25/21 16:34 Hematocrit 33.4 % (42-52) L 05/25/21 16:34 Hgb O2 Saturation 94.6 % (95-100) L 05/25/21 16:34 Carboxyhemoglobin 1.3 %THgb (0.4-20.1) 05/25/21 16:34 Methemoglobin 1.0 % (0.4-1.5) 05/25/21 16:34 Total Hemoglobin 10.9 g/dL (14-18) L 05/25/21 16:34 Sodium 135.0 mmol/L (131-143) 05/25/21 16:34 Potassium 4.5 mmol/L (3.5-5.0) 05/25/21 16:34 Glucose 334.0 mg/dL (70-115) H 05/25/21 16:34 Ionized Calcium 1.2 mmol/L (1.1-1.4) 05/25/21 16:34 O2 Delivery Device Nc 05/25/21 16:34 O2 Liters/Min 4.0 % 05/25/21 16:34 FiO2 4.0 % 05/25/21 16:34 Tool Room Lathe Operator ID Rory 05/25/21 16:34 Sodium 132 mmol/L (136-145) L 05/25/21 15:15 Potassium 4.9 mmol/L (3.5-5.1) 05/25/21 15:15 Chloride 93 mmol/L (98-107) L 05/25/21 15:15 Carbon Dioxide 28 mmol/L (22-29) 05/25/21 15:15 Anion Gap 15.9 (5-19) 05/25/21 15:15 BUN 18 mg/dL (8-23) 05/25/21 15:15 Creatinine 0.6 mg/dL (0.7-1.2) L 05/25/21 15:15 GFR Calculation 133.2 mL/min (90-130) H 05/25/21 15:15 Glucose 333 mg/dL (65-115) H 05/25/21 15:15 Calculated Osmolality 289 mOsm/kg (285-295) 05/25/21 15:15 Calcium 10.5 mg/dL (8.5-10.5) 05/25/21 15:15 Total Bilirubin 0.4 mg/dL (0.15-1.2) 05/25/21 15:15 AST 18 U/L (0-40) 05/25/21 15:15 ALT 15 U/L (0-41) 05/25/21 15:15 Alkaline Phosphatase 112 IU/L (40-130) 05/25/21 15:15 Troponin T Baseline 9 ng/L (0-15) 05/25/21 15:15 Total Protein 7.8 g/dL (6.6-8.7) 05/25/21 15:15 Albumin 4.4 g/dL (3.5-5.2) 05/25/21 15:15 Globulin 3.4 g/dL (1.3-4.6) 05/25/21 15:15 Urine Color Yellow (Yellow) 05/25/21 Unknown Urine Appearance Clear (CLEAR) 05/25/21 Unknown Urine pH 7 (5-7) 05/25/21 Unknown Ur Specific [place] 1.010 (1.005-1.030) 05/25/21 Unknown Urine Protein Neg (Negative) 05/25/21 Unknown Urine Glucose (UA) 4+ (Normal) H 05/25/21 Unknown Urine Ketones Negative (Negative) 05/25/21 Unknown Urine Blood Neg (Negative) 05/25/21 Unknown Urine Nitrate Negative (Negative) 05/25/21 Unknown Urine Bilirubin Neg (Negative) 05/25/21 Unknown Urine Urobilinogen Norm mg/dL (Negative) 05/25/21 Unknown Ur Leukocyte Esterase Negative (Negative) 05/25/21 Unknown Discharge Plan Discharge Patient Disposition: Home Clinical Impression: Asthma exacerbation in COPD, Lung cancer, Anemia Condition: Stable Prescriptions: New doxycycline hyclate 100 mg capsule 100 mg PO BID 10 Days Qty: 20 0RF Medrol (Cesar) 4 mg tablets,dose pack See Rx Instructions .ROUTE .COMPLEX Qty: 21 0RF Rx Instructions: orally per package directions albuterol sulfate 90 mcg/actuation HFA aerosol inhaler 2 inh INHALATION Q4H PRN (Reason: shortness of breath or wheezing) Qty: 18 0RF No Action naproxen sodium 220 mg capsule 220 mg PO BID PRN (Reason: Pain) 30 Days Qty: 60 0RF omeprazole 40 mg capsule,delayed release(DR/EC) 40 mg PO DAILY 0RF escitalopram oxalate [Lexapro] 10 mg tablet 10 mg PO DAILY 0RF hydrocodone-acetaminophen 7.5-325 mg tablet 1 tab PO TID PRN (Reason: pain) 30 Days Qty: 90 0RF Rx Instructions: Fill on or after 06/13/21 morphine 15 mg tablet extended release 15 mg PO Q12H 30 Days Qty: 60 0RF Rx Instructions: fill on or after 06/12/21 rosuvastatin 10 mg tablet 10 mg PO DAILY 0RF alendronate 70 mg Tablet 70 mg PO Q7D 0RF multivitamin Tablet 1 tab PO DAILY 0RF tamsulosin 0.4 mg Capsule 0.4 mg PO DAILY 0RF albuterol sulfate [Ventolin HFA] 90 mcg/actuation Hfa Aerosol Inhaler 1 - 2 puff inhalation QID PRN (Reason: Shortness Of Breath) 0RF metformin 750 mg Tablet Extended Release 24 Hr 750 mg PO BID 0RF guaifenesin [Mucinex] 600 mg Tablet Extended Release 12hr 600 mg PO BID 0RF Januvia 100 mg Tablet 100 mg PO DAILY 0RF Calcium + D 600 mg(1,500mg) -200 unit Tablet 1 tab PO DAILY 0RF Aspir-81 81 mg Tablet,Delayed Release (Dr/Ec) 81 mg PO DAILY 0RF felodipine 10 mg tablet extended release 24 hr 10 mg PO DAILY 0RF Maxitrol 3.5 mg/g-10,000 unit/g-0.1 % ointment See Rx Instructions .ROUTE .COMPLEX 0RF Rx Instructions: 0.25 inch to right eye tid lactulose 10 gram/15 mL solution 15 ml PO BID 0RF Trelegy Ellipta 100-62.5-25 mcg blister with device 1 inh inhalation DAILY 0RF Discharge Orders: Discharge ED (Routine); Ordered 05/25/21 Ordered By: Angel Griffith Referrals: Rossana Ruggiero MD [Primary Care Provider] - Discharge Diet: Usual diet Discharge Activity: Resume usual activity Patient Instructions: Opioid Safety Activity Restrictions/Additional Instructions: Follow-up with your primary care doctor as previously scheduled Coding Level of Care Code ED Inside Sales for Camila Ko
--- NOTE | 2021-05-25 14:21 | XR_ITS ---
WS: [id number] XR chest 1V portable [id number] REASON FOR EXAM: dyspnea/cough FINDINGS: Moderate tortuosity of the thoracic aorta without aneurysmal dilatation. Normal heart size. Postthoracotomy changes in the right hemithorax with rib resection, pleural thickening, and decreased volume of the right lung. Calcified granulomatous disease bilaterally. Compared to the previous examination of 05/02/2021, no acute pulmonary parenchymal or pleural abnormal ity is identified. Degenerative changes in the mid and lower thoracic spine. 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 No acute chest abnormality identified.
--- NOTE | 2021-05-25 14:21 | ECG_ITS ---
[facility] Test Date: 2021-05-25 Pat Name: Moses Cardoza Department: Room: Gender: Male Pattern Chart Writer: : 1950 Requested By: Angel Cedillo Order Number: [id number] Reading MD: PAULIE HERRERA Measurements Intervals [place] Rate: 86 P: 33 NC: 142 QRS: 33 QRSD: 94 T: 79 QT: 350 QTc: 420 Interpretive Statements SINUS RHYTHM NONSPECIFIC T-WAVE ABNORMALITY Compared to ECG 03/24/2021 11:08:02 T-wave abnormality now present Electronically Signed On 05-25-2021 21:47:33 ORCHID HAND by PAULIE HERRERA [id number]
--- NOTE | 2021-05-25 15:21 | CT_ITS ---
WS: [id number] CT HEAD NONCONTRAST HISTORY: AMS TECHNIQUE: Contiguous axial imaging performed through the brain in 2.5 mm imaging. Bone and soft tiss ue windows. Sagittal and coronal reformats reviewed. All CT scans at [facility] use at least one of these dose optimization techniques: automated exposure control; mA and/or kV adjustment per pa tient size (includes targeted exams where dose is matched to clinical indication); or iterative recon struction. DLP: 754.84 mGy.cm COMPARISON: None available. No acute intracranial hemorrhage, midline shift or mass effect. Mild atrophy and mild chronic microvascular ischemic disease. No prior infarcts. Ventricles: Normal size with no hydrocephalus. Paranasal sinuses: Mucoperiosteal thickening in the ethmoid air cells. No air-fluid levels. Mastoid air cells: Coalescence of mastoid air cells and increasing sclerosis in the RIGHT mastoid air cells. Calvarium and scalp: Skull is intact with no soft tissue edema or swelling. CT/CT head wo con* [id number] IMPRESSION: 1. No acute intracranial hemorrhage or edema. 2. Mild atrophy and mild chronic microvascular ischemic disease.
[2021-05-25 15:24] LABS: Basophils # 0.1 10^3/uL (0.0-0.1); Basophils % 0.3 %; Eosinophils # 0.1 10^3/uL (0.0-0.8); Eosinophils % 0.6 %; Hemoglobin 10.7 g/dL (11.7-16.6); Lymphocytes # 0.7 10^3/uL (0.8-4.8); Lymphocytes % 4.8 %; Mean Corpuscular HGB Conc 32.4 g/dL (30.0-36.0); Mean Corpuscular Hemoglobin 28.5 pg (28.0-34.0); Mean Platelet Volume 10.1 fL (7.4-10.4); Monocytes # 0.7 10^3/uL (0.2-0.9); Monocytes % 4.8 %; Neutrophils # 12.75 10^3/uL (1.8-7.7); Neutrophils % 89.2 %; Nucleated Red Blood Cells % 0 %; Platelet Count 191 10^3/cmm (130-400); Red Blood Count 3.75 10^6/uL (4.1-5.3); Red Cell Distribution Width 13.2 % (12.1-15.1); White Blood Count 14.3 10^3/uL (4.0-10.0)
[2021-05-25 15:50] LABS: Alanine Aminotransferase 15 U/L (0-41); Albumin Level 4.4 g/dL (3.5-5.2); Alkaline Phosphatase 112 IU/L (40-130); Aspartate Amino Transferase 18 U/L (0-40); Blood Urea Nitrogen 18 mg/dL (8-23); Calcium 10.5 mg/dL (8.5-10.5); Carbon Dioxide 28 mmol/L (22-29); Chloride 93 mmol/L (98-107); Globulin 3.4 g/dL (1.3-4.6); Glomerular Filtration Rate 133.2 mL/min (90-130); Glucose 333 mg/dL (65-115); Osmolality Calculated 289 mOsm/kg (285-295); Sodium 132 mmol/L (136-145); Total Bilirubin 0.4 mg/dL (0.15-1.2); Total Protein 7.8 g/dL (6.6-8.7)
[2021-05-25 15:58] LABS: Anion Gap 15.9 (5-19); Potassium 4.9 mmol/L (3.5-5.1)
--- NOTE | 2021-05-25 16:21 | ECG_ITS ---
[facility] Test Date: 2021-05-25 Pat Name: Moses Cardoza Department: Room: Gender: Male Departmental Shipping Clerk: : 1950 Requested By: Angel Cedillo Order Number: [id number] Reading MD: PAULIE HERRERA Measurements Intervals [place] Rate: 83 P: 67 [place]: 148 QRS: 39 QRSD: 92 T: 78 QT: 376 QTc: 443 Interpretive Statements SINUS RHYTHM NONSPECIFIC T-WAVE ABNORMALITY Compared to ECG 05/25/2021 15:22:16 No significant changes Electronically Signed On 05-25-2021 21:49:01 CHIEF ENGINEER'S HELPER by PAULIE HERRERA [email or web address] in [email or web address]/store/[id number]
[2021-05-25 16:29] VITALS: BP 143/73; PULSE 81; RESP 18; TEMP 37.4; O2SAT 95
[2021-05-25] MEDS: albuterol 8 gm MDI 2 PUFF INHALATION (16:33)
[2021-05-25 16:38] LABS: Add Urine Microscopic? NO; Charge for UA Resulting for Rev
[2021-05-25 16:43] LABS: Troponin(5th) Baseline 9 ng/L (0-15)
[2021-05-25 16:45] LABS: ABG PH Result 7.43 (7.35-7.45); Alveolar-Arterial Oxygen Gradi 21.6 mmHg (5-10); Blood Gas Sample Type Arterial; Carboxyhemoglobin 1.3 %THgb (0.4-20.1); Oxygen Device NC; Potassium Level - ABG 4.5 mmol/L (3.5-5.0); Total Hemoglobin 10.9 g/dL (14-18)
--- NOTE | 2021-05-25 16:45 | PC.PHAR ---
pt states he takes care of his own medications-pt states he is trying to get home health pt states he is suppose to be getting it on jun 07 but is unsure of the name of the home health-pt states he is no longer taking the azithromycin 500mg rx filled 04/14/21 28d/s #12-pt states he is still taking januvia states its a orange pill [facility] filled 12/14/2019 pt states he has a build up of this medication-pt states the dr put his alendronate on hold until after his teeth get fixed-pt brought in a med list it had methimazole 10mg daily pt states not taking- [facility] filled -notes are made in the pharmacy comments
[2021-05-25 16:54] LABS: Bilirubin Urine Neg (Negative); Blood Urine Neg (Negative); Glucose Urine UA 4+ (Normal); Ketones Urine Negative (Negative); Leukocyte Esterase Urine Negative (Negative); Nitrate Urine Negative (Negative); Protein Urine Neg (Negative); Urine Appearance Clear (CLEAR); Urine Color Yellow (Yellow); Urobilinogen Urine Norm (Negative); pH Urine 7 (5-7)
[2021-05-25 16:56] LABS: ABG PCO2 47.9 mmHg (35-45); Arterial Blood Gas Hematocrit 33.4 % (42-52); Base Excess ABG 6.5 mmol/L (-2.0-2.0); Blood Gas Allen Test Pos; Blood Gas Sample Site Radial, right; HCO3 ABG 31.8 mmol/L (22-26); HGB O2 Sat 94.6 % (95-100); Ionized Calcium Level - ABG 1.2 mmol/L (1.1-1.4); Oxygen Saturation ABG 96.8; PO2 ABG 80.6 mmHg (80.0-100.0)
[2021-05-25] MEDS: HYDROcodone-acetaminophen 7.5-325 mg Tablet 1 TAB PO (18:20)
[2021-05-25] MEDS: insulin regular-human 100 units/1 mL 10 UNIT IVP (18:20)
[2021-05-25] MEDS: morphine ER (12 HR) 15 mg Tablet PO (18:50)
[2021-05-25] MEDS: metformin 850 mg Tablet PO (18:50)
[2021-05-25 19:27] VITALS: RESP 18
== END 2021-05-25 19:29 | disposition home or self-care (01) ==
PROVIDERS: Emergency Provider Family Medicine; PCP Family Medicine
DX: J44.1 Chronic obstructive pulmonary disease with (acute) exacerbation (principal); C34.90 Malignant neoplasm of unspecified part of unspecified bronchus or lung; D64.9 Anemia, unspecified; Z79.84 Long term (current) use of oral hypoglycemic drugs; Z79.82 Long term (current) use of aspirin; E11.9 Type 2 diabetes mellitus without complications; Z90.2 Acquired absence of lung [part of]; Z87.891 Personal history of nicotine dependence
CPT/HCPCS: 36600; 70450; 71045; 80051; 80053; 81003; 82330; 82805; 84484; 85025; 93005; 94640; 96374; 96375; 99284; J1815; J2930; J3535

== ENCOUNTER 2021-05-29 15:35 | Outpatient (CLI) | payer MEDICARE, MEDICAID, SELFPAY ==
[2021-05-29 16:00] LABS: Basophils % 0.1 %; Eosinophils # 0.1 10^3/uL (0.0-0.8); Eosinophils % 0.7 %; Hemoglobin 11.5 g/dL (11.7-16.6); Lymphocytes # 1.2 10^3/uL (0.8-4.8); Lymphocytes % 9.8 %; Mean Corpuscular HGB Conc 31.9 g/dL (30.0-36.0); Mean Corpuscular Hemoglobin 28.3 pg (28.0-34.0); Mean Corpuscular Volume 88.7 fl (80-94); Mean Platelet Volume 10.6 fL (7.4-10.4); Monocytes # 0.8 10^3/uL (0.2-0.9); Monocytes % 6.7 %; Neutrophils # 9.96 10^3/uL (1.8-7.7); Neutrophils % 82.3 %; Nucleated Red Blood Cells % 0 %; Platelet Count 263 10^3/cmm (130-400); Red Blood Count 4.06 10^6/uL (4.1-5.3); Red Cell Distribution Width 13.1 % (12.1-15.1); White Blood Count 12.1 10^3/uL (4.0-10.0)
--- NOTE | 2021-05-29 16:59 | ONC FU_ITS ---
Dr. Yo follow up note Patient: Moses Cardoza Unit #: [id number]: 1950 Dicatated By: Hussein Yo M.D.Date of Visit:May 29, 2021 Onc Med Follow-up/Prog Note History of Present Illness: Mr. Moses Cardoza, 71 -year-old gentleman with history of emphysema now on home oxygen, underwent right lower lobectomy on 10/06/2014 for localized squamous cell carcinoma. Postop period was complicated with pleural effusion for which he underwent decortication. Now with no evidence of disease as per last CT scan of abdomen pelvis done on 01/20/2016 in [facility]. As per patient no further treatment was offered as it was a early stage disease and he was followed by medical oncologist and thoracic surgeon there at [facility] in [place]. CT scan of the chest done on 07/15/2017 showed no evidence of residual recurrence of disease CT scan of chest done on 06/17/2018 showed no evidence of residual, recurrent or metastatic disease. Severe chronic emphysema, stable postoperative changes from prior right lower lobectomy. Follow-up CT scan of chest done on 02/18/2019 showed post operative changes due to right lower lobectomy, no evidence of residual or recurrence of disease CT scan of chest done on February 17, 2020 showed right lower lobe lobectomy with chronic changes negative for acute cardiopulmonary disease He is on home oxygen for severe emphysema/COPD On oral iron for iron deficiency anemia, Was discontinued because of intolerance Status post Injectafer 750 mg weekly x2 in June 2020 Came for follow-up, denies any specific complaints except weight loss which is due to not having teeth to chew now waiting for implants, patient is on mechanical soft diet and boost. Denies any fever chills or nausea vomiting denies any diarrhea or constipation denies any melena or hematochezia denies any hemoptysis or hematemesis denies any chest pain or palpitation. Recently underwent chest x-ray on April 22, 2021 which showed postoperative volume loss right lung with parenchymal fibrosis small right pleural effusion or pleural thickening unchanged Medications: Albuterol Sulfate HFA Aerosol, solution Inhalation PRN, Aleve 1 (220 mg) Tablet Oral PRN, Amoxicillin 1 Tablet (of 500 mg) Oral t.i.d., Aspirin 1 (81 mg) Tablet, enteric coated Oral daily, Azithromycin (500 mg) Tablet Oral Take as Directed, Calcium 1 (600 mg) Tablet Oral b.i.d., Cetirizine HCl 1 Tablet (of 10 mg) Oral daily, Crestor 1 (10 mg) Tablet Oral at bedtime, DULoxetine HCl 1 (30 mg) Capsule Delayed Release Particles Oral daily, Hydrocodone-Acetaminophen 1 (7.5-325 mg) Tablet Oral t.i.d. PRN, Lexapro 1 (20 mg) Tablet Oral daily, MetFORMIN HCl ER 1 (750 mg) Tablet SR 24 HR Oral daily, MethIMAzole 2 Tablet (of 10 mg) Oral daily, Morphine Sulfate 1 Tablet (of 15 mg) Oral b.i.d., Mucinex DM 1 (30-600 mg) Tablet SR 12 HR Oral b.i.d., Multivitamin Adult 1 Tablet Oral daily, Pepcid 1 (20 mg) Tablet Oral daily PRN, Senna 1 (8.6 mg) Capsule Oral b.i.d., Stiolto Respimat 1 Puff(s) (of 2.5-2.5 mcg/act) Aerosol, solution Inhalation daily Allergies: No Known Allergies. Review of Systems: Review of Systems is not available for this patient. Vital Signs: Performed on May 29, 2021 16:26 Height - 70.00 in Weight - 175.4 lbs (LOW) BSA - 1.97 sq.m BMI - 25.17 Temperature - 96.3 F (LOW) Pulse - 114 /min (HIGH) Respiration - 20 /min BP - 158/72 mm(hg) (HIGH) O2 Sat - 98 % Pain - 0 Fatigue - 9 Performance Status: 1 - No physically strenuous activity, but ambulatory and able to carry out light or sedentary work (e.g. office work, light house work). (ECOG) Physical Examination: ENMT - No mouth sores, no thrush, no jaundice, no cervical lymphadenopathy, Respiratory - Poor air entry otherwise clear, Cardiovascular - Regular rate and rhythm of heart, Abdomen - Soft, bowel sounds present, Extremities - No visible edema. Lab/Imaging: Most recent lab results are not available for this patient. 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 Size of tumor 4 x 3.8 x 2.9 cm, moderately to poorly differentiated, no pleural involvement tumor was present within 1-2 mm of inked pleural margin however all margins were clear no lymphovascular invasion seen pT2a 12 mediastinal lymph nodes were removed showed no evidence of metastatic disease N0 Mx stage IB Now being observed CT scan of chest done on 01/20/2016 at [facility] showed volume loss noted within the right hemithorax with small right-sided pleural effusion, these are thought to be postsurgical changes, centrilobular emphysematous changes are noted with minimal scarring/atelectasis in the right middle lobe CT scan of the chest done on 07/15/2017 showed no evidence of residual or recurrent or metastatic neoplasm, status post right lower lobectomy with associated postoperative changes, severe chronic emphysematous CT scan of chest done on 06/17/2018 showed no evidence of recurrent or residual disease, postoperative changes from prior right lower lobectomy, severe emphysema Iron deficiency anemia , on oral iron, Oral iron discontinued on May 20, 2020 because of intolerance and persistent iron deficiency anemia, Was given Injectafer 750 mg IV weekly x2 in June 2020 with excellent response. EGD done on May 10, 2020 shows mild inflammatory/mucosal changes in the distal esophagus but biopsy was benign, stomach shows mild hiatal hernia. Duodenal exam was unremarkable, colonoscopy without any abnormality Plan: Discussed with patient regarding his labs white blood count 12.1 hemoglobin 11.5 g hematocrit 36 platelets 263,000 with a normal differential Clinically, patient is doing well with no new signs symptom suggestive of recurrence of disease and his follow-ups lab work-up CBC showed improvement in his hemoglobin now 11.5 g compared to 10.7 g previously,, mild leukocytosis, no obvious sign or symptom of infection, will continue to monitor and then he will return to clinic in 3 months with CBC CMP and iron studies Signed By: Hussein Yo M.D. <<Signature on File>>
== END 2021-05-29 15:36 | disposition home or self-care (01) ==
PROVIDERS: PCP Family Medicine; Visit Provider Internal Medicine Hematology & Oncology
DX: Z08 Encounter for follow-up examination after completed treatment for malignant neoplasm (principal); Z85.118 Personal history of other malignant neoplasm of bronchus and lung; J90 Pleural effusion, not elsewhere classified; J43.9 Emphysema, unspecified; J98.11 Atelectasis; D50.9 Iron deficiency anemia, unspecified; K44.9 Diaphragmatic hernia without obstruction or gangrene; Z79.899 Other long term (current) drug therapy
CPT/HCPCS: 36415; 85025; 99214

== ENCOUNTER → 2021-07-03 13:54 | Outpatient (BNVA) | payer MEDICARE, MEDICAID, SELFPAY | PROVIDERS: PCP Family Medicine; Visit Provider Internal Medicine Critical Care Medicine | DX: J44.9 Chronic obstructive pulmonary disease, unspecified (principal); J96.11 Chronic respiratory failure with hypoxia; C34.90 Malignant neoplasm of unspecified part of unspecified bronchus or lung; Z87.891 Personal history of nicotine dependence; K21.9 Gastro-esophageal reflux disease without esophagitis; E11.8 Type 2 diabetes mellitus with unspecified complications | CPT/HCPCS: 99214 ==

== ENCOUNTER 2021-07-21 16:24 | Outpatient (CLI) | payer MEDICARE, MEDICAID, SELFPAY ==
--- NOTE | 2021-07-21 16:46 | MR_ITS ---
WS: [id number] MRI LUMBAR SPINE NONCONTRAST HISTORY: FAILED BACK SYNDROME LUMBAR, lumbar spine fracture with kyphoplasty. COMPARISON: 06/10/2017 TECHNIQUE: Sagittal and axial multisequence imaging is submitted. Thoracolumbar scoliosis. RIGHT curvature of the lumbar spine. Increase in thoracic kyphosis. Osteocho ndrosis in the endplates in the lower thoracic spine. Slight increase in the lumbar lordosis. There is slight anterior wedging of T11 and T12. Compression fracture at L2 without progression since the prior examination from 2018. Prior kyphoplasty at the L2 vertebral body now noted. Schmorl's node defect in the superior endplate of L3. Mild disc space narrowing and desiccation throughout the lumbar spine. Conus terminates normally at L1. Disc level. L1-L2: Mild annular disc bulging and osteophytic ridging. 2 mm retrolisthesis of the posterior superi or endplate of L2. Very mild contact on the ventral thecal sac. Minimal encroachment into the subarti cular recesses, similar to the prior study. No high-grade stenosis. L2-L3: Diffuse mild annular disc bulging and osteophytic ridging. No stenosis. L3-L4: Mild annular disc bulging with mild ligamentum flavum and facet arthritis. Very mild narrowing of the subarticular recesses and foramina predominantly due to facet disease. No high-grade stenosis . L4-L5: Mild annular disc bulging with mild ligamentum flavum and facet arthritis. No stenosis. L5-S1: 2 mm anterolisthesis of L5. Broad-based central disc protrusion. Mild contact on the ventral t hecal sac. Marked ligamentum flavum hypertrophy and facet arthritis. There is mild encroachment into the ventral thecal sac with only mild central, bilateral subarticular recess and foraminal stenosis. Mild progression since the prior study. Paravertebral soft tissues are normal. MR/MR lumbar spine wo con* [id number] IMPRESSION: 1. 50% compression fracture of L2 with minimal retropulsion of posterior super ior endplate. Prior kyphoplasty at L2. Stable without progression. 2. L5 anterolisthesis by 2 mm with a central disc protrusion. Very mild centra l, bilateral subarticular recess and foraminal narrowing at L5-S1 due to combin ation of factors. 3. Bilateral subarticular recess encroachment at L1-2. 4. Mild subarticular recess and foraminal narrowing at L3-4.
== END 2021-07-21 16:25 | disposition home or self-care (01) ==
PROVIDERS: PCP Family Medicine; Visit Provider General Practice
DX: M96.1 Postlaminectomy syndrome, not elsewhere classified (principal); S32.029A Unspecified fracture of second lumbar vertebra, initial encounter for closed fracture; X58.XXXA Exposure to other specified factors, initial encounter; M51.26 Other intervertebral disc displacement, lumbar region
CPT/HCPCS: 72148

== ENCOUNTER → 2021-10-06 10:49 | Outpatient (BNVA) | payer MEDICARE, MEDICAID, SELFPAY | PROVIDERS: PCP Family Medicine; Visit Provider Internal Medicine Critical Care Medicine | DX: J44.9 Chronic obstructive pulmonary disease, unspecified (principal); C34.90 Malignant neoplasm of unspecified part of unspecified bronchus or lung; J96.11 Chronic respiratory failure with hypoxia; Z87.891 Personal history of nicotine dependence; K21.9 Gastro-esophageal reflux disease without esophagitis; E11.8 Type 2 diabetes mellitus with unspecified complications; Z79.84 Long term (current) use of oral hypoglycemic drugs | CPT/HCPCS: 99213 ==

== ENCOUNTER 2021-11-15 11:09 | Observation (INO) | payer MEDICARE, MEDICAID, SELFPAY ==
[2021-11-15] VITALS (19 sets, daily range): BP systolic 94–153; BP diastolic 51–91; PULSE 71–109; RESP 15–26; TEMP 36.1–36.8; O2SAT 92–100; BMI 23.6
--- NOTE | 2021-11-15 11:21 | W.ED.SOB ---
HPI - SOB/Dyspnea General: Chief Complaint: Shortness of Breath/Dyspnea Stated Complaint: RESP DISTRESS Time Seen by Provider: 11/15/21 11:20 History of Present Illness: HPI Narrative: Mr. Cardoza is a 71-year-old gentleman with history of lung cancer, COPD, chronic hypoxic respiratory failure who presents to the emergency department due to shortness of breath. He first noticed mild increase in baseline shortness of breath starting yesterday however this became more pronounced this morning. He endorses worse symptoms with exertion however now shortness of breath persists at rest. He tried home Trelegy and MDI without significant relief. Intensity symptoms is moderate to severe. No other specific changes in health, exacerbating, or alleviating factors identified. Onset (ago): hour(s) Exacerbating factors: exertion Known history of: COPD and other Review of Systems General: Reports: 10 or more systems reviewed and unremarkable except in HPI and below PFSH ED PFSH: Medical History Chronic low back pain with left-sided sciatica COPD (chronic obstructive pulmonary disease) GERD (gastroesophageal reflux disease) Low back pain of over 3 months duration Lung cancer Type 2 diabetes mellitus Surgical History H/O esophagogastroduodenoscopy (05/10/20) History of lobectomy of lung right lung-Dr. Hwang -[place] Hx of cholecystectomy Hx of eye surgery bilat-Dr. Navarrete did right and Dr. Perez in [place] Hx of kyphoplasty 07/05/[address] Powell Status post colonoscopy (05/11/20) normal Family History Brother Cancer Diabetes Heart disease Social History Smoking and tobacco status: former smoker (quit 7 years ago) Quit status (tobacco): has quit using tobacco Year quit tobacco: 2016 - PPD x 45 Years Former quit date comment: Started at age 17 Second hand smoke exposure: No Smoking risk assessment/counseling performed?: Yes Alcohol intake: former Year of sobriety/quit date alcohol: 2013 Former alcohol use details: beer Lives independently: Yes Household members: none Marital status: service: No Current occupational status: disabled History of recent travel: No Current gender identity: Male Physical Exam Const: COMMON NORMALS: alert GENERAL APPEARANCE: cooperative, well developed and ill appearing HENMT: COMMON NORMALS: normocephalic and atraumatic HEAD & SCALP: normocephalic and atraumatic Eye: COMMON NORMALS: conjunctivae normal CONJUNCTIVA: Yes conjunctivae normal SCLERA: sclerae normal Neck/C-Spine: COMMON NORMALS: supple GENERAL: Yes trachea midline Resp: EFFORT & INSPECTION: Yes able to speak in complete sentences and Yes tachypneic AUSCULTATION: diminished lung sounds Cardio: COMMON NORMALS: regular rate and regular rhythm RATE: regular rate RHYTHM: regular rhythm GI: COMMON NORMALS: Soft to palpation PALPATION: Yes Soft to palpation and No Tenderness to palpation present (GI) Extremity: GENERAL: Yes normal exam except as noted and No edema Neuro: COMMON NORMALS: moves all extremities SENSORIUM/ORIENTATION: Yes alert and No Orientation impaired Psych: COMMON NORMALS: mental status grossly normal and Normal thought process present THOUGHT PROCESS: Normal thought process present Course ED course: - Patient was seen and evaluated by me at bedside - Patient placed on cardiac monitors, IV access obtained - Initial evaluation notable for exam as above. Respiratory distress. - Labs and xrays personally interpreted by me. EKG notable for sinus rhythm, no STEMI, nonspecific ST segment abnormalities. -Steroids, RT treatment given - Labs notable for leukocytosis, normocytic anemia. ABG with mild hypercapnia though compensated pH on 6 L nasal cannula. Metabolic panel without evidence of significant acute electrolyte abnormality. 2-hour troponin in intermediate range. - Imaging notable for questionable right lower lobe pneumonia. Antibiotic given. Given clinical history and relatively unimpressive chest x-ray for degree of patient's symptoms CT imaging is required. CTA positive for right upper lobe pulmonary embolus. New subpleural mass like pleural-based masses discussed with patient. - Upon serial reexamination after treatment the patient was mildly improved - Based on patient history, evaluation, and testing as interpreted the most likely cause of the patient's condition is pneumonia with pulmonary embolisms leading to respiratory distress with underlying COPD - The results of ED evaluation were discussed with the patient including plan for admission due to requirement for level of care not available if discharged to prevent significant worsening/deterioration. - Admitting service was contacted and Dr Norton with the hospitalist service agreed to admit the patient - Patient was admitted without further deterioration or significant events. Note: Click bubbles or prepopulated acuña in note writing are used for assistance with data collection and billing and are inherently more limited than narrative and other text portions of this note. Please use narrative for additional clinical history and defer to narrative/free test for any case of contradictory information. If information appears in only free text or click bubble it should be considered present or absent as reported. Please contact note commercial lines underwriter for clarifications of clinical information or contradictory information. MDM is a brief summary, contradictory or erroneous seeming information should be clarified and full note should be reviewed. Vital Signs: Vital signs: Vital Signs Temperature 98.0 F 11/17/21 07:24 Pulse Rate 89 11/17/21 16:10 Respiratory Rate 17 11/17/21 16:10 Blood Pressure 117/61 11/17/21 16:10 Pulse Oximetry 97 11/17/21 16:10 Oxygen Delivery Me thod 11/17/21 11:43 Oxygen Flow Rate 5 11/17/21 11:43 MDM - SOB/Dyspnea Medical Decision Making 71-year-old gentleman with history of lung cancer status post lobectomy and underlying COPD presenting with progressively worsening shortness of breath. Patient found to have pneumonia and subsegmental pulmonary emboli. Admitted for further management. Medical Records I reviewed the patient's medical records. Lab Data I reviewed the patient's lab results. : 11/17/21 04:02 11/17/21 04:02 Labs/Radiology: Radiology Impressions Chest X-Ray 11/15/21 11:28 IMPRESSION: 1. Volume loss right hemithorax. 2. Interstitial congestion right lower lobe and right lung apex. 3. Hyperexpanded left lung Chest CTA 11/15/21 13:50 IMPRESSION: 1. 1 or 2 tiny filling defects in the RIGHT upper lobe pulmonary arteries suspicious for pulmonary embolus. 2. Proximal main pulmonary arteries are normal. 3. Subpleural masslike pleural-based mass in the LEFT lower lobe is new from the prior studies measuring 3.3 x 1.6 cm suspicious for neoplasm. Small amount of surrounding infiltrate. Recommend correlation for pneumonia and short interval follow-up 2-3 weeks after treatment. 4. Subpleural lesion suspicious for metastatic disease versus neoplasm. Pleural-based mass could be further evaluated with PET/CT or possibly CT-guided biopsy if persistent after treatment. 5. Prior postoperative changes RIGHT lower lobectomy. Trace RIGHT pleural fluid pleural thickening. 6. Tiny esophageal hiatal hernia. Notified Eduardo Pike MD at 11/15/2021 2:50 PM. Laboratory Results WBC 13.3 10^3/uL (4.0-10.0) H 11/15/21 12:03 RBC 4.12 10^6/uL (4.1-5.3) 11/15/21 12:03 Hgb 11.3 g/dL (11.7-16.6) L 11/15/21 12:03 Hct 35.9 % (42.0-52.0) L 11/15/21 12:03 MCV 87.1 fl (80-94) 11/15/21 12:03 MCH 27.4 pg (28.0-34.0) L 11/15/21 12:03 MCHC 31.5 g/dL (30.0-36.0) 11/15/21 12:03 RDW 13.1 % (12.1-15.1) 11/15/21 12:03 Plt Count 200 10^3/cmm (130-400) 11/15/21 12:03 MPV 11.1 fL (7.4-10.4) H 11/15/21 12:03 Neut % (Auto) 85.4 % 11/15/21 12:03 Lymph % (Auto) 7.8 % 11/15/21 12:03 [place] % (Auto) 4.7 % 11/15/21 12:03 Eos % (Auto) 1.4 % 11/15/21 12:03 Baso % (Auto) 0.3 % 11/15/21 12:03 Neut # (Auto) 11.35 10^3/uL (1.8-7.7) H 11/15/21 12:03 Lymph # (Auto) 1.0 10^3/uL (0.8-4.8) 11/15/21 12:03 [place] # (Auto) 0.6 10^3/uL (0.2-0.9) 11/15/21 12:03 Eos # (Auto) 0.2 10^3/uL (0.0-0.8) 11/15/21 12:03 Baso # (Auto) 0.0 10^3/uL (0.0-0.1) 11/15/21 12:03 Nucleated RBC % (auto) 0 % 11/15/21 12:03 Nucleated RBCs # 0.0 /100WBC 11/15/21 12:03 Specimen Type Arterial 11/15/21 11:48 Sample Site Radial, right 11/15/21 11:48 ABG pH 7.37 (7.35-7.45) 11/15/21 11:48 ABG pCO2 52.2 mmHg (35-45) H 11/15/21 11:48 ABG pO2 81.2 mmHg (80.0-100.0) 11/15/21 11:48 ABG HCO3 30.3 mmol/L (22-26) H 11/15/21 11:48 ABG Base Excess 4.1 mmol/L (-2.0-2.0) H 11/15/21 11:48 Singh Test Pos 11/15/21 11:48 Hematocrit 32.7 % (42-52) L 11/15/21 11:48 O2 Delivery Device Nc 11/15/21 11:48 O2 Liters/Min 6.0 % 11/15/21 11:48 FiO2 44.0 % 11/15/21 11:48 Car Parker ID Mon[place] 11/15/21 11:48 Sodium 137 mmol/L (136-145) 11/15/21 12:03 Potassium 3.8 mmol/L (3.5-5.1) 11/15/21 12:03 Chloride 93 mmol/L (98-107) L 11/15/21 12:03 Carbon Dioxide 26 mmol/L (22-29) 11/15/21 12:03 Anion Gap 21.8 (5-19) H 11/15/21 12:03 BUN 21 mg/dL (8-23) 11/15/21 12:03 Creatinine 0.7 mg/dL (0.7-1.2) 11/15/21 12:03 GFR Calculation 111.5 mL/min (90-130) 11/15/21 12:03 Glucose 382 mg/dL (65-115) H 11/15/21 12:03 Calculated Osmolality 303 mOsm/kg (285-295) H 11/15/21 12:03 Lactate 2.2 mmol/L (0.5-2.2) 11/15/21 12:30 Calcium 9.7 mg/dL (8.5-10.5) 11/15/21 12:03 Total Bilirubin 0.3 mg/dL (0.15-1.2) 11/15/21 12:03 AST 13 U/L (0-40) 11/15/21 12:03 ALT 13 U/L (0-41) 11/15/21 12:03 Alkaline Phosphatase 110 IU/L (40-130) 11/15/21 12:03 Troponin T Baseline 8 ng/L (0-15) 11/15/21 12:03 Troponin T 120 Minute 16.81 ng/L (0-15) H 11/15/21 14:25 Delta Troponin T 8.81 ABS# (0-10) 11/15/21 14:25 NT-Pro-B Natriuret Pep 129 pg/mL (0-125) H 11/15/21 12:03 Total Protein 7.2 g/dL (6.6-8.7) 11/15/21 12:03 Albumin 4.3 g/dL (3.5-5.2) 11/15/21 12:03 Globulin 2.9 g/dL (1.3-4.6) 11/15/21 12:03 Procalcitonin 0.04 ng/mL (0-0.5) 11/15/21 12:03 Critical Care Time Critical Care Time: Critical Care Time: Yes Total Critical Care Time: 35 Attestation: The high probability of a clinically significant, sudden or life threatening deterioration of the patient's cardiopulmonary system(s) required my full and direct attention, intervention and personal management. The critical care time is as shown. This time is in addition to time spent performing any reported procedures but includes the following: [x] Data and vital sign review and interpretation [x] Patient assessment, examination and intervention [x] Documentation [x] Medication orders and management Discharge Plan Discharge Patient Disposition: Placed in Observation Admit Provider: Jony Norton Clinical Impression: Shortness of breath, Pulmonary emboli, Pneumonia, Pleural mass Coding Level of Care Code ED Clinic Office Assistant for [facility] Fwd Exam Comprehensive
--- NOTE | 2021-11-15 11:28 | XRR_ITS ---
PROCEDURE INFORMATION: Exam: XR Chest Exam date and time: 11/15/2021 11:39 AM Age: 71 years old Clinical indication: Shortness of breath; Prior surgery; Surgery date: 6+ months; Patient HX: Resp distress , HX of RT lung lobectomy; Additional info: SOB TECHNIQUE: Imaging protocol: Radiologic exam of the chest. Views: 1 view. COMPARISON: CR XR chest 1V portable [id number] 05/25/2021 2:28 PM FINDINGS: Lungs: There is interstitial densities in the right apical region and right lower lobe decreased since prior. Volume loss is present in the right lung. The left lung is hyperexpanded. Pleural spaces: Unremarkable. No pleural effusion. No pneumothorax. Heart/Mediastinum: Unremarkable. No cardiomegaly. Bones/joints: Unremarkable. XR/XR chest 1V portable [id number] IMPRESSION: 1. Volume loss right hemithorax. 2. Interstitial congestion right lower lobe and right lung apex. 3. Hyperexpanded left lung
--- NOTE | 2021-11-15 11:54 | ECG_ITS ---
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 Measurements Intervals [place] Rate: 95 P: 77 AK: 145 QRS: 47 QRSD: 92 T: 84 QT: 364 QTc: 459 Interpretive Statements SINUS RHYTHM NONSPECIFIC T-WAVE ABNORMALITY Compared to ECG 05/25/2021 18:12:55 No significant changes Electronically Signed On 11-15-2021 19:34:42 CDT by Rafaela Bradley M.D. [id number]
[2021-11-15 12:02] LABS: ABG PCO2 52.2 mmHg (35-45); ABG PH Result 7.37 (7.35-7.45); Arterial Blood Gas Hematocrit 32.7 % (42-52); Base Excess ABG 4.1 mmol/L (-2.0-2.0); Blood Gas Allen Test Pos; Blood Gas Sample Type Arterial; HCO3 ABG 30.3 mmol/L (22-26); PO2 ABG 81.2 mmHg (80.0-100.0)
[2021-11-15 12:03] LABS: Blood Gas Operator Identificat MONRO; Blood Gas Sample Site Radial, right; Oxygen Device NC
[2021-11-15] MEDS: ipratropium-albuterol 3 mL Neb INHALATION ×3 (12:05→20:43)
[2021-11-15 12:19] LABS: Basophils % 0.3 %; Eosinophils # 0.2 10^3/uL (0.0-0.8); Eosinophils % 1.4 %; Hematocrit 35.9 % (42.0-52.0); Hemoglobin 11.3 g/dL (11.7-16.6); Lymphocytes % 7.8 %; Mean Corpuscular HGB Conc 31.5 g/dL (30.0-36.0); Mean Corpuscular Hemoglobin 27.4 pg (28.0-34.0); Mean Corpuscular Volume 87.1 fl (80-94); Mean Platelet Volume 11.1 fL (7.4-10.4); Monocytes # 0.6 10^3/uL (0.2-0.9); Monocytes % 4.7 %; Neutrophils # 11.35 10^3/uL (1.8-7.7); Neutrophils % 85.4 %; Nucleated Red Blood Cells % 0 %; Platelet Count 200 10^3/cmm (130-400); Red Blood Count 4.12 10^6/uL (4.1-5.3); Red Cell Distribution Width 13.1 % (12.1-15.1); White Blood Count 13.3 10^3/uL (4.0-10.0)
[2021-11-15 12:43] LABS: Troponin(5th) Baseline 8 ng/L (0-15)
[2021-11-15 12:53] LABS: NT Pro B Type Natriuretic Pept 129 pg/mL (0-125); Procalcitonin 0.04 ng/mL (0-0.5)
[2021-11-15 12:54] LABS: Lactate (Lactic Acid level) 2.2 mmol/L (0.5-2.2)
[2021-11-15 13:04] LABS: Alanine Aminotransferase 13 U/L (0-41); Albumin Level 4.3 g/dL (3.5-5.2); Alkaline Phosphatase 110 IU/L (40-130); Anion Gap 21.8 (5-19); Aspartate Amino Transferase 13 U/L (0-40); Blood Urea Nitrogen 21 mg/dL (8-23); Calcium 9.7 mg/dL (8.5-10.5); Carbon Dioxide 26 mmol/L (22-29); Chloride 93 mmol/L (98-107); Creatinine Clr Calc Pharmacy 92.1701; Globulin 2.9 g/dL (1.3-4.6); Glomerular Filtration Rate 111.5 mL/min (90-130); Glucose 382 mg/dL (65-115); Osmolality Calculated 303 mOsm/kg (285-295); Potassium 3.8 mmol/L (3.5-5.1); Sodium 137 mmol/L (136-145); Total Bilirubin 0.3 mg/dL (0.15-1.2); Total Protein 7.2 g/dL (6.6-8.7)
--- NOTE | 2021-11-15 13:31 | ECG_ITS ---
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 Measurements Intervals [place] Rate: 83 P: 66 PA: 144 QRS: 45 QRSD: 90 T: 90 QT: 370 QTc: 437 Interpretive Statements SINUS RHYTHM NONSPECIFIC T-WAVE ABNORMALITY Compared to ECG 11/15/2021 11:54:38 No significant changes Electronically Signed On 11-15-2021 19:46:32 CDT by Rafaela Bradley M.D. [id number]
--- NOTE | 2021-11-15 13:50 | CT_ITS ---
WS: [id number] CTA OF THE CHEST WITH PULMONARY EMBOLISM PROTOCOL TECHNIQUE: High-resolution contrast enhanced CTA of the chest with coronal and sagittal reformatted i mages with pulmonary embolism protocol. MIP images are also reviewed. CLINICAL INFORMATION: sob, hx cancer COMPARISON: CT chest February 17, 2020 DLP: 370.[address] scans at [facility] use at least one of these dose optimization techniques: automated e xposure control; mA and/or kV adjustment per patient size (includes targeted exams where dose is matc hed to clinical indication); or iterative reconstruction. FINDINGS: Prior postoperative changes RIGHT lower lobectomy. Moderate chronic emphysematous changes. Trace RIGH T pleural fluid with pleural thickening. RIGHT lower lobe subsegmental atelectasis. Small amount of p atchy infiltrates in the LEFT lower lobe. New subpleural masslike opacity LEFT lower lobe medially me asuring 3.3 x 1.6 cm. Recommend further evaluation with PET/CT and/or CT-guided biopsy. Primary neopl asm or metastatic disease not excluded. Proximal main pulmonary arteries are normal. A few subtle tiny central filling defects in the RIGHT u pper lobe pulmonary arteries suspicious for pulmonary embolus. Surgical clips about the RIGHT lower h ilum. Tiny esophageal hiatal hernia. Adrenal glands are normal. Normal caliber upper abdominal aorta no axi llary lymphadenopathy. Mild thoracic kyphosis. CT/CT angio chest PE protcl [id number] IMPRESSION: 1. 1 or 2 tiny filling defects in the RIGHT upper lobe pulmonary arteries susp icious for pulmonary embolus. 2. Proximal main pulmonary arteries are normal. 3. Subpleural masslike pleural-based mass in the LEFT lower lobe is new from t he prior studies measuring 3.3 x 1.6 cm suspicious for neoplasm. Small amount o f surrounding infiltrate. Recommend correlation for pneumonia and short interva l follow-up 2-3 weeks after treatment. 4. Subpleural lesion suspicious for metastatic disease versus neoplasm. Pleura l-based mass could be further evaluated with PET/CT or possibly CT-guided biops y if persistent after treatment. 5. Prior postoperative changes RIGHT lower lobectomy. Trace RIGHT pleural flui d pleural thickening. 6. Tiny esophageal hiatal hernia. Notified Eduardo Pike MD at 11/15/2021 2:50 PM.
[2021-11-15] MEDS: HYDROcodone-acetaminophen 7.5-325 mg Tablet 1 TAB PO (14:52)
[2021-11-15 14:59] LABS: Troponin 5 2HR 16.81 ng/L (0-15)
[2021-11-15 15:02] LABS: Troponin 5 2HR Delta 8.81 ABS# (0-10)
[2021-11-15] MEDS: levofloxacin-dextrose 5 % 750 MG/150 ML PREMIX 100 MG IV (15:27)
[2021-11-15] MEDS: enoxaparin 80 mg/0.8 mL Syringe SUBCUT (15:28)
--- NOTE | 2021-11-15 16:29 | PM.HP ---
Providers/Chief Complaint Primary Care Provider: Rossana Ruggiero MD Chief Complaint: RESP DISTRESS History of Present Illness Moses Cardoza is a 71 year old male with PMH of End stage COPD , Rt Ca Lung s/p lobectomy, chronic back pain came in with c/o Worsening SOB going on for the last 2days, deny any chest pain, cough,fever, runny nose, nausea,vomiting, sweating, dizziness. Patient states that he fell short of breath even with minimal exertion. Upon arrival in the ER he was worked up for above mention complain. Pertinent Imaging studies: CT angio chest PE protcl: 1.? 1 or 2 tiny filling defects in the RIGHT upper lobe pulmonary arteries suspicious for pulmonary embolus. 2.? Proximal main pulmonary arteries are normal. 3.? Subpleural masslike pleural-based mass in the LEFT lower lobe is new from the prior studies measuring 3.3 x 1.6 cm suspicious for neoplasm. Small amount of surrounding infiltrate. Recommend correlation for pneumonia and short interval follow-up 2-3 weeks after treatment. 4.? Subpleural lesion suspicious for metastatic disease versus neoplasm. Pleural-based mass could be further evaluated with PET/CT or possibly CT-guided biopsy if persistent after treatment. 5.? Prior postoperative changes RIGHT lower lobectomy. Trace RIGHT pleural fluid pleural thickening. 6.? Tiny esophageal hiatal hernia Pertinent Labs : WBC : 13.3 , H&h : 11/35 , PLT : 200 , Na : 137 , k: 3.8 , BUN/SCR : 21/0.7 , Review of Systems General: Reports: 10 or more systems reviewed and unremarkable except in HPI and below Const: Denies: fever(s), chills, body aches, change in appetite or diaphoresis Card: Denies: palpitations, edema, swelling of feet/ankles or leg pain with exertion Resp: Denies: productive cough, wheezing or pain on inspiration GI: Denies: abdominal pain, nausea, vomiting, diarrhea or constipation : Denies: flank pain or difficulty urinating Musc: Denies: back pain, extremity pain or extremity swelling Neuro: Denies: headache(s), difficulty walking or confusion Medications/Allergies Home Medications Medication Instructions Recorded Confirmed Last Taken Type albuterol sulfate 90 mcg/actuation 1 - 2 puff inhalation QID PRN 04/16/19 11/15/21 11/15/21 History aerosol inhaler (Ventolin HFA) Shortness Of Breath alendronate 70 mg tablet 70 mg PO Q7D 04/16/19 11/15/21 11/15/21 History metformin 750 mg tablet,extended 750 mg PO BID 04/16/19 11/15/21 11/15/21 History release 24 hr multivitamin 1 tab PO DAILY 04/16/19 11/15/21 11/15/21 History tamsulosin 0.4 mg capsule 0.4 mg PO DAILY 04/16/19 11/15/21 11/14/21 History rosuvastatin 10 mg tablet 10 mg PO BEDTIME 03/08/20 11/15/21 11/14/21 History omeprazole 40 mg capsule,delayed 40 mg PO DAILY 05/28/20 11/15/21 11/15/21 History release escitalopram oxalate 10 mg tablet 10 mg PO DAILY 06/16/20 11/15/21 11/15/21 History (Lexapro) naproxen sodium 220 mg capsule 220 mg PO BID PRN Pain 30 days #60 02/09/21 11/15/21 11/15/21 Rx caps hydrocodone 7.5 mg-acetaminophen 1 tab PO TID PRN pain 30 days #90 05/10/21 11/15/21 11/15/21 Rx 325 mg tablet tabs morphine 15 mg tablet,extended 15 mg PO Q12H pain 30 days #60 tabs 05/10/21 11/15/21 11/15/21 Rx release aspirin 81 mg tablet,delayed 81 mg PO DAILY 05/25/21 11/15/21 11/15/21 History release calcium carbonate 600 mg-vitamin 1 tab PO DAILY 05/25/21 11/15/21 11/15/21 History D3 5 mcg (200 unit) tablet felodipine 10 mg tablet,extended 10 mg PO DAILY 05/25/21 11/15/21 11/15/21 History release 24 hr fluticasone fur. 100 mcg-umeclid 1 inh inhalation DAILY 05/25/21 11/15/21 11/15/21 History 62.5 mcg-vilant 25 mcg inhalat.powder (Trelegy Ellipta) neomycin 3.5 mg/g-polymyxin B See Rx Instructions .Route .COMPLEX 05/25/21 11/15/21 11/15/21 History 10,000 unit/g-dexameth 0.1 % eye oint (Maxitrol) azithromycin 250 mg tablet 250 mg PO .COMPLEX 90 days #45 tabs 10/06/21 11/15/21 11/15/21 Rx cetirizine 10 mg disintegrating 10 mg PO DAILY 11/15/21 11/15/21 11/15/21 History tablet cholecalciferol (vitamin D3) 25 25 mcg PO DAILY 11/15/21 11/15/21 11/15/21 History mcg (1,000 unit) tablet (Vitamin D3) Allergies Allergy/AdvReac Type Severity Reaction Status Date / Time No Known Allergies Allergy Verified 11/15/21 12:03 PFSH Acute PFSH: Medical History Chronic low back pain with left-sided sciatica COPD (chronic obstructive pulmonary disease) GERD (gastroesophageal reflux disease) Low back pain of over 3 months duration Lung cancer Type 2 diabetes mellitus Surgical History H/O esophagogastroduodenoscopy (05/10/20) History of lobectomy of lung right lung-Dr. Hwang -[place] Hx of cholecystectomy Hx of eye surgery bilat-Dr. Navarrete did right and Dr. Perez in [place] Hx of kyphoplasty 07/05/[address] Powell Status post colonoscopy (05/11/20) normal Family History Brother Cancer Diabetes Heart disease Social History Smoking and tobacco status: former smoker (quit 7 years ago) Quit status (tobacco): has quit using tobacco Year quit tobacco: 2016 - PPD x 45 Years Former quit date comment: Started at age 17 Second hand smoke exposure: No Smoking risk assessment/counseling performed?: Yes Alcohol intake: former Year of sobriety/quit date alcohol: 2013 Former alcohol use details: beer Lives independently: Yes Household members: none Marital status: service: No Current occupational status: disabled History of recent travel: No Current gender identity: Male Vitals/I&O/Wt Last Vital Signs Temp 98.3 F 11/15/21 11:32 Pulse 75 11/15/21 15:02 Resp 17 11/15/21 15:02 BP 130/63 11/15/21 15:02 Pulse Ox 98 11/15/21 15:02 O2 Del Method 11/15/21 15:02 O2 Flow Rate 6 11/15/21 15:02 Weight last 48 hrs Weight 76.657 kg Physical Exam Const: COMMON NORMALS: patient oriented x3 HENMT: HEAD & SCALP: normocephalic and atraumatic Resp: AUSCULTATION: clear to auscultation bilaterally Cardio: COMMON NORMALS: regular rate, regular rhythm, S1 normal heart sound present, S2 normal heart sound present, No gallops present (Cardio), No murmurs present (Cardio), No rub (Cardio) and Peripheral pulses 2+ throughout RATE: regular rate RHYTHM: regular rhythm HEART SOUNDS: S1 normal heart sound present and S2 normal heart sound present PERIPHERAL PULSES: Peripheral pulses 2+ throughout GI: COMMON NORMALS: Normal to inspection, nondistended, normoactive bowel sounds present, Soft to palpation, non-tender, No hepatosplenomegaly present and no masses AUSCULTATION: Yes normoactive bowel sounds PALPATION: Yes Soft to palpation and Yes No hepatosplenomegaly present RECTAL EXAM: Yes deferred Extremity: COMMON NORMALS: no clubbing, cyanosis or edema and no pedal edema Neuro: COMMON NORMALS: patient oriented x3 Data : 11/15/21 12:03 11/15/21 12:03 A&P Assessment and plan (1) Shortness of breath: Status: Acute (2) Pulmonary emboli: Status: Acute (3) Pneumonia: Status: Acute (4) Pleural mass: Status: Acute (5) Chronic low back pain with left-sided sciatica: Status: Chronic (6) Lung cancer: Status: Acute (7) COPD (chronic obstructive pulmonary disease): Status: Acute (8) Diabetes: Status: Acute Plan Moses Cardoza is a 71 year old male with PMH of End stage COPD , Rt Ca Lung s/p lobectomy, chronic back pain came in with c/o Worsening SOB going on for the last 2days, deny any chest pain, cough,fever, runny nose, nausea,vomiting, sweating, dizziness. Assessment : Ac Pulmonary Embolism Subpleural masslike pleural-based mass in the LEFT lower lobe DM End Stage COPD H/O Ca rt Lung Chronic back pain Plan : On Therapeutic with Eliquis Empirically on Abx for Lt lower lobe subpleural mass less likely PNA Continue Pulmonary follow up NAHEED Larson, Code Status :AND Attestations Medical Necessity Statement*: Patient needs to be in hospital for the management of Ac Pulmonary Embolism. Coding Level of Care Code Acute [employer] for [employer] Fwd Exam Detailed Diagnoses Shortness of breath R06.02 Pulmonary emboli I26.99 Pneumonia J18.9 Pleural mass J94.8 Chronic low back pain with left-sided sciatica M54.42; G89.29 Lung cancer C34.90 COPD (chronic obstructive pulmonary disease) J44.9 Diabetes E11.9
--- NOTE | 2021-11-15 17:29 | ECG_ITS ---
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 Measurements Intervals [place] Rate: 71 P: 63 IA: 143 QRS: 50 QRSD: 98 T: 79 QT: 402 QTc: 439 Interpretive Statements SINUS RHYTHM Compared to ECG 11/15/2021 13:31:13 T-wave abnormality no longer present Electronically Signed On 11-15-2021 19:44:26 CDT by Rafaela Bradley M.D. [id number]
[2021-11-15 17:58] LABS: Glucose Point of Care 404 mg/dL (70-110)
[2021-11-15] MEDS: insulin lispro 100 unit/1 mL SUBCUT ×2 (18:22→22:55)
[2021-11-15 19:01] LABS: Troponin 5 6HR 15.53 ng/L (0-15); Troponin 5 6HR Delta 7.53 ng/L (0-12)
--- NOTE | 2021-11-15 19:14 | PC.NURSE ---
performed a linen change and assisted the patient in cleaning up urine that was spilled all over the floor, I reassured patient and ensured his comfort.
[2021-11-15] MEDS: morphine ER (12 HR) 15 mg Tablet PO (21:10)
[2021-11-15] MEDS: atorvastatin 40 mg Tablet PO (21:10)
[2021-11-15] MEDS: tamsulosin 0.4 mg Capsule PO (21:10)
[2021-11-15] MEDS: aspirin 81 mg EC Tablet PO (21:10)
[2021-11-15 22:24] LABS: Glucose Point of Care 357 mg/dL (70-110)
[2021-11-16] VITALS (11 sets, daily range): BP systolic 110–171; BP diastolic 58–66; PULSE 59–81; RESP 14–18; TEMP 36.4–36.8; O2SAT 97–100
[2021-11-16] MEDS: HYDROcodone-acetaminophen 7.5-325 mg Tablet 1 TAB PO (02:28)
[2021-11-16] MEDS: ipratropium-albuterol 3 mL Neb INHALATION ×4 (02:58→21:20)
[2021-11-16 04:26] LABS: Basophils % 0.1 %; Hematocrit 30.9 % (42.0-52.0); Hemoglobin 9.6 g/dL (11.7-16.6); Lymphocytes # 0.5 10^3/uL (0.8-4.8); Lymphocytes % 5.8 %; Mean Corpuscular HGB Conc 31.1 g/dL (30.0-36.0); Mean Corpuscular Hemoglobin 27.4 pg (28.0-34.0); Mean Corpuscular Volume 88.3 fl (80-94); Mean Platelet Volume 10.5 fL (7.4-10.4); Monocytes # 0.6 10^3/uL (0.2-0.9); Monocytes % 7.1 %; Neutrophils # 7.67 10^3/uL (1.8-7.7); Neutrophils % 86.7 %; Nucleated Red Blood Cells % 0 %; Platelet Count 159 10^3/cmm (130-400); Red Cell Distribution Width 13.1 % (12.1-15.1); White Blood Count 8.9 10^3/uL (4.0-10.0)
[2021-11-16 04:51] LABS: Anion Gap 13.3 (5-19); Blood Urea Nitrogen 19 mg/dL (8-23); Calcium 9.4 mg/dL (8.5-10.5); Carbon Dioxide 31 mmol/L (22-29); Chloride 101 mmol/L (98-107); Glomerular Filtration Rate 133.2 mL/min (90-130); Glucose 115 mg/dL (65-115); Osmolality Calculated 295 mOsm/kg (285-295); Potassium 4.3 mmol/L (3.5-5.1); Sodium 141 mmol/L (136-145)
[2021-11-16 04:56] LABS: Creatinine Clr Calc Pharmacy 92.1701
[2021-11-16 06:45] LABS: Glucose Point of Care 138 mg/dL (70-110)
[2021-11-16] MEDS: azithromycin 500 MG in sodium chloride 0.9% 250 ML 250 MG IV (08:24)
[2021-11-16] MEDS: pantoprazole DR 40 mg Tablet PO (08:25)
[2021-11-16] MEDS: apixaban 5 mg Tablet 10 MG PO ×2 (08:25→18:21)
[2021-11-16] MEDS: morphine ER (12 HR) 15 mg Tablet PO ×2 (08:25→20:31)
[2021-11-16] MEDS: escitalopram 10 mg Tablet PO (08:25)
[2021-11-16] MEDS: cholecalciferol (vitamin D3) 1,000 unit Tablet 1000 UNIT PO (08:25)
[2021-11-16] MEDS: multivitamin therapeutic Tablet 1 TAB PO (08:25)
[2021-11-16] MEDS: budesonide 0.5 mg/2 mL Neb INHALATION ×2 (08:46→21:20)
--- NOTE | 2021-11-16 10:05 | PC.CHAP ---
Pastoral Care Encounter/Spiritual Assessment Type of Contact [] Declined semi driver visit [] Patient/Family/Request visit [] Outpatient visit [] Follow-up visit [] Physician referral [] Code/Alert [x] Routine visit [] Staff referral [] Actively dying [] Patient sleeping [] Family support [] [] Out of room [] Palliative care [] [x] Receiving care in room [] Pre-surgical visit [] Trauma [] Long length of stay [] ICU visit [] Other: Relational/Emotional Strength [x] Patient feels connected with others/family/visitors/staff [] Distress [] Loneliness/isolation [] Abandonment Spirituality of Patient [x] Person of Rae [] Attends Amish of their Rae [x] Believes in Prayer [] Reads Bible or Nondenominational materials [] There are Spiritual issues to be addressed Glue Specialty Supervisor Interventions [x] Prayer [x] Active listening [x] Non-anxious presence [x] Spiritual/emotional support [] Crisis/trauma care [x] Spiritual counseling [] Bereavement support [] Provided bereavement packet [] Provided Bible/devotional materials [] Provided toy/stuffed animal, coloring book to patient or family member [] Provided Communion [] Anointing/[place] [] Salvation [x] Completed spiritual assessment [] Other: Impact on Illness or Injury [] Angry [] Fearful [x] Anxious [] Often cries [] Exhaustion [] Unable to work [] Unable to attend scientologist [] Unable to walk/stand [] Unable to read [] Unable to drive [] Unable to eat/drink [] Unable to sleep [] Unable to be with family [] Patient intubated [] Other: Summary dealing with blood clotалександр hernandez feeling better has a good attitude will be going home Time spent with patient 10 mins
[2021-11-16] MEDS: cefTRIAXone 1,000 MG in sodium chloride 0.9% (plus) 50 ML 100 MG IV (10:18)
[2021-11-16 12:34] LABS: Glucose Point of Care 294 mg/dL (70-110)
[2021-11-16] MEDS: insulin lispro 100 unit/1 mL SUBCUT ×3 (13:09→23:39)
--- NOTE | 2021-11-16 14:24 | P.PN_ITS ---
Subjective Subjective: Complain of significant shortness of breath even with minimal exertion. Medications: Medication Review Details: Generic Name Dose Route Start Last Admin Trade Name Freq PRN Reason Stop Dose Admin Hydrocodone Bitart /Acetaminophen 1 tab 11/15/21 16:19 11/16/21 02:28 Hydrocodone-Acet aminophen 7.5-325 Mg Tablet PO 1 tab TID PRN Administration pain Albuterol/Ipratrop ium 3 ml 11/15/21 16:30 11/16/21 08:46 Ipratropium-Albu terol 3 Ml Neb INHALATION 3 ml Q6H.RESP CÉSAR Administration Apixaban 10 mg 11/16/21 09:00 11/16/21 08:25 Apixaban 5 Mg Ta blet PO 10 mg BID CÉSAR Administration Aspirin 81 mg 11/15/21 21:15 11/15/21 21:10 Aspirin 81 Mg Ec Tablet PO 81 mg BEDTIME CÉSAR Administration Atorvastatin Calci um 40 mg 11/15/21 21:00 11/15/21 21:10 Atorvastatin 40 Mg Tablet PO 40 mg BEDTIME CÉSAR Administration Budesonide 0.5 mg 11/16/21 08:00 11/16/21 08:46 Budesonide 0.5 M g/2 Ml Neb INHALATION 0.5 mg BID.RESPIRATORY S CH Administration Escitalopram Oxala te 10 mg 11/16/21 09:00 11/16/21 08:25 Escitalopram 10 Mg Tablet PO 10 mg DAILY CÉSAR Administration Azithromycin 500 m g/ Sodium 250 mls @ 250 mls /hr 11/16/21 08:00 11/16/21 09:36 Chloride IV Infused Q24H CÉSAR Infusion Protocol Ceftriaxone Sodium 1,000 mg/ 50 mls @ 100 mls/ hr 11/16/21 09:00 11/16/21 11:24 Sodium Chloride IV Infused DAILY CÉSAR Infusion Protocol Insulin Human Lisp ro 0 unit 11/15/21 18:00 11/16/21 13:09 Insulin Lispro 1 00 Unit/1 Ml SUBCUT 8 unit WM&BEDTIME CÉSAR Administration Protocol Morphine Sulfate 15 mg 11/15/21 20:00 11/16/21 08:25 Morphine Er (12 Hr) 15 Mg Tablet PO 15 mg Q12H CÉSAR Administration Multivitamins Ther apeutic 1 tab 11/16/21 09:00 11/16/21 08:25 Multivitamin The rapeutic Tablet PO 1 tab DAILY CÉSAR Administration Pantoprazole Sodiu m 40 mg 11/16/21 09:00 11/16/21 08:[address] 40 Mg Tablet PO 40 mg DAILY CÉSAR Administration Tamsulosin HCl 0.4 mg 11/15/21 21:15 11/15/21 21:10 Tamsulosin 0.4 M g Capsule PO 0.4 mg BEDTIME CÉSAR Administration Vitamin D 1,000 unit 11/16/21 09:00 11/16/21 08:25 Cholecalciferol (Vitamin D3) 1,000 Unit Tablet PO 1,000 unit DAILY CÉSAR Administration Vitals/I&O/Wt Last Vital Signs Temp 98.2 F 11/16/21 12:00 Pulse 77 11/16/21 12:00 Resp 17 11/16/21 12:00 BP 126/64 11/16/21 12:00 Pulse Ox 99 11/16/21 12:00 O2 Del Method 11/16/21 12:00 O2 Flow Rate 5 11/16/21 12:00 11/15/21 11/16/21 11/16/21 22:59 06:59 14:59 Intake Total 150 / 150 200 / 350 540 / 540 Balance 150 / 150 200 / 350 540 / 540 Weight last 48 hrs Weight 76.657 kg Physical Exam Const: COMMON NORMALS: patient oriented x3 HENMT: COMMON NORMALS: normocephalic and atraumatic HEAD & SCALP: normocephalic and atraumatic Resp: COMMON NORMALS: clear to auscultation bilaterally AUSCULTATION: clear to auscultation bilaterally Cardio: COMMON NORMALS: regular rate, regular rhythm, S1 normal heart sound present, S2 normal heart sound present, No gallops present (Cardio), No murmurs present (Cardio), No rub (Cardio) and Peripheral pulses 2+ throughout RATE: regular rate RHYTHM: regular rhythm HEART SOUNDS: S1 normal heart sound present and S2 normal heart sound present PERIPHERAL PULSES: Peripheral pulses 2+ throughout GI: COMMON NORMALS: Normal to inspection, nondistended, normoactive bowel sounds present, Soft to palpation, non-tender, No hepatosplenomegaly present and no masses AUSCULTATION: Yes normoactive bowel sounds PALPATION: Yes Soft to palpation and Yes No hepatosplenomegaly present RECTAL EXAM: Yes deferred Extremity: COMMON NORMALS: no clubbing, cyanosis or edema and no pedal edema Neuro: COMMON NORMALS: patient oriented x3 Data : 11/16/21 04:13 11/16/21 04:13 A&P Assessment and plan (1) Shortness of breath: Status: Acute (2) Pulmonary emboli: Status: Acute (3) Pneumonia: Status: Acute (4) Pleural mass: Status: Acute (5) Chronic low back pain with left-sided sciatica: Status: Chronic (6) Lung cancer: Status: Acute (7) COPD (chronic obstructive pulmonary disease): Status: Acute (8) Diabetes: Status: Acute Plan Moses Cardoza is a 71 year old male with PMH of End stage COPD , Rt Ca Lung s/p lobectomy, chronic back pain came in with c/o Worsening SOB going on for the last 2days, deny any chest pain, cough,fever, runny nose, nausea,vomiting, sweating, dizziness. Assessment : Ac Pulmonary Embolism Subpleural masslike pleural-based mass in the LEFT lower lobe DM End Stage COPD H/O Ca rt Lung Chronic back pain Plan : On Therapeutic with Eliquis Empirically on Abx for Lt lower lobe subpleural mass less likely PNA Continue Pulmonary follow up Duo dawit LDSSI, FSG, Code Status :AND Attestations Medical Necessity Statement*: Patient is still in hospital for management of significant shortness of breath secondary to acute PE. Coding Level of Care Code Acute Floor Director for [facility] Fwd Exam Detailed Diagnoses Shortness of breath R06.02 Pulmonary emboli I26.99 Pneumonia J18.9 Pleural mass J94.8 Chronic low back pain with left-sided sciatica M54.42; G89.29 Lung cancer C34.90 COPD (chronic obstructive pulmonary disease) J44.9 Diabetes E11.9
[2021-11-16 17:14] LABS: Glucose Point of Care 178 mg/dL (70-110)
[2021-11-16] MEDS: aspirin 81 mg EC Tablet PO (20:31)
[2021-11-16] MEDS: atorvastatin 40 mg Tablet PO (20:31)
[2021-11-16] MEDS: tamsulosin 0.4 mg Capsule PO (20:31)
[2021-11-16 21:30] LABS: Glucose Point of Care 162 mg/dL (70-110)
[2021-11-17] VITALS (8 sets, daily range): BP systolic 117–157; BP diastolic 61–72; PULSE 60–89; RESP 16–18; TEMP 36.7–36.8; O2SAT 97–100
[2021-11-17] MEDS: HYDROcodone-acetaminophen 7.5-325 mg Tablet 1 TAB PO (03:08)
[2021-11-17] MEDS: ipratropium-albuterol 3 mL Neb INHALATION ×2 (03:09→08:35)
[2021-11-17 04:13] LABS: Basophils % 0.4 %; Eosinophils # 0.2 10^3/uL (0.0-0.8); Eosinophils % 2.1 %; Hematocrit 31.5 % (42.0-52.0); Hemoglobin 9.6 g/dL (11.7-16.6); Lymphocytes # 1.2 10^3/uL (0.8-4.8); Lymphocytes % 16.8 %; Mean Corpuscular HGB Conc 30.5 g/dL (30.0-36.0); Mean Corpuscular Hemoglobin 27.4 pg (28.0-34.0); Mean Platelet Volume 10.3 fL (7.4-10.4); Monocytes # 0.5 10^3/uL (0.2-0.9); Monocytes % 7.2 %; Neutrophils # 5.11 10^3/uL (1.8-7.7); Neutrophils % 73.2 %; Nucleated Red Blood Cells % 0 %; Platelet Count 145 10^3/cmm (130-400); Red Cell Distribution Width 13.2 % (12.1-15.1)
[2021-11-17 04:48] LABS: Anion Gap 12.2 (5-19); Blood Urea Nitrogen 17 mg/dL (8-23); Calcium 9.2 mg/dL (8.5-10.5); Carbon Dioxide 32 mmol/L (22-29); Chloride 105 mmol/L (98-107); Glomerular Filtration Rate 133.2 mL/min (90-130); Glucose 280 mg/dL (65-115); Osmolality Calculated 312 mOsm/kg (285-295); Potassium 4.2 mmol/L (3.5-5.1); Sodium 145 mmol/L (136-145)
[2021-11-17 04:50] LABS: Creatinine Clr Calc Pharmacy 92.1701
[2021-11-17 06:42] LABS: Glucose Point of Care 284 mg/dL (70-110)
[2021-11-17] MEDS: budesonide 0.5 mg/2 mL Neb INHALATION (08:35)
[2021-11-17] MEDS: azithromycin 500 MG in sodium chloride 0.9% 250 ML 250 MG IV (09:21)
[2021-11-17] MEDS: morphine ER (12 HR) 15 mg Tablet PO (09:22)
[2021-11-17] MEDS: cefTRIAXone 1,000 MG in sodium chloride 0.9% (plus) 50 ML 100 MG IV (09:22)
[2021-11-17] MEDS: escitalopram 10 mg Tablet PO (09:23)
[2021-11-17] MEDS: apixaban 5 mg Tablet 10 MG PO (09:23)
[2021-11-17] MEDS: cholecalciferol (vitamin D3) 1,000 unit Tablet 1000 UNIT PO (09:23)
[2021-11-17] MEDS: pantoprazole DR 40 mg Tablet PO (09:23)
[2021-11-17] MEDS: multivitamin therapeutic Tablet 1 TAB PO (09:23)
[2021-11-17] MEDS: insulin lispro 100 unit/1 mL SUBCUT ×2 (09:24→12:30)
[2021-11-17 11:33] LABS: Glucose Point of Care 288 mg/dL (70-110)
--- NOTE | 2021-11-17 13:41 | PM.DCS ---
Discharge Providers Date of Admission: 11/15/21 15:29 Date of Discharge: November 17, 2021 Attending Provider at Admission: Jony Norton MD Attending Provider at Discharge: Jony Norton MD Primary Care Provider: Rossana Ruggiero MD Diagnoses at Discharge Discharge Diagnosis (1) Shortness of breath: Status: Acute (2) Pulmonary emboli: Status: Acute (3) Pneumonia: Status: Acute (4) Pleural mass: Status: Acute (5) Chronic low back pain with left-sided sciatica: Status: Chronic (6) Lung cancer: Status: Acute (7) COPD (chronic obstructive pulmonary disease): Status: Acute (8) Diabetes: Status: Acute Reason for Visit Reason for Visit: RESP DISTRESS Hospital Course Hospital Course HPI: Moses Cardoza is a 71 year old male with PMH of End stage COPD , Rt Ca Lung s/p lobectomy, chronic back pain came in with c/o Worsening SOB going on for the last 2days, deny any chest pain, cough,fever, runny nose, nausea,vomiting, sweating, dizziness. Patient states that he fell short of breath even with minimal exertion. Upon arrival in the ER he was worked up for above mention complain. Pertinent Imaging studies: CT angio chest PE protcl: 1.? 1 or 2 tiny filling defects in the RIGHT upper lobe pulmonary arteries suspicious for pulmonary embolus. 2.? Proximal main pulmonary arteries are normal. 3.? Subpleural masslike pleural-based mass in the LEFT lower lobe is new from the prior studies measuring 3.3 x 1.6 cm suspicious for neoplasm. Small amount of surrounding infiltrate. Recommend correlation for pneumonia and short interval follow-up 2-3 weeks after treatment. 4.? Subpleural lesion suspicious for metastatic disease versus neoplasm. Pleural-based mass could be further evaluated with PET/CT or possibly CT-guided biopsy if persistent after treatment. 5.? Prior postoperative changes RIGHT lower lobectomy. Trace RIGHT pleural fluid pleural thickening. 6.? Tiny esophageal hiatal hernia Pertinent Labs : WBC : 13.3 , H&h : 11/35 , PLT : 200 , Na : 137 , k: 3.8 , BUN/SCR : 21/0.7 , Hospital course: Patient was admitted for the management of : Ac Pulmonary Embolism,Subpleural masslike pleural-based mass in the LEFT lower lobe , DM, End Stage COPD, H/O Ca rt Lung, Chronic back pain, he was started on therapeutic anticoagulation with Eliquis, for left lower lobe subpleural mass, he has been empirically kept on antibiotics and is being discharged antibiotics, pneumonia is less likely, repeat CT chest has been scheduled as an outpatient after completing antibiotic course, patient was also continued on duo nebs, supplemental oxygen. Overall patient is hemodynamically stable, given his significant shortness of breath even with minimal exertion, due to end-stage COPD. He is being discharged to [facility]. He will follow-up with oncology primary care physician and pulmonary as an outpatient. Physical Exam Const: COMMON NORMALS: patient oriented x3 HENMT: COMMON NORMALS: normocephalic and atraumatic HEAD & SCALP: normocephalic and atraumatic Resp: COMMON NORMALS: clear to auscultation bilaterally AUSCULTATION: clear to auscultation bilaterally Cardio: COMMON NORMALS: regular rate, regular rhythm, S1 normal heart sound present, S2 normal heart sound present, No gallops present (Cardio), No murmurs present (Cardio), No rub (Cardio) and Peripheral pulses 2+ throughout RATE: regular rate RHYTHM: regular rhythm HEART SOUNDS: S1 normal heart sound present and S2 normal heart sound present PERIPHERAL PULSES: Peripheral pulses 2+ throughout GI: COMMON NORMALS: Normal to inspection, nondistended, normoactive bowel sounds present, Soft to palpation, non-tender, No hepatosplenomegaly present and no masses AUSCULTATION: Yes normoactive bowel sounds PALPATION: Yes Soft to palpation and Yes No hepatosplenomegaly present RECTAL EXAM: Yes deferred Extremity: COMMON NORMALS: no clubbing, cyanosis or edema and no pedal edema Neuro: COMMON NORMALS: patient oriented x3 Discharge Data Studies Completed and Pending Completed Studies During Hospitalization Category Date Time Status CTA chest [CT angio chest PE protcl [id number]] Stat Cat Scan 11/15/21 13:50 Completed XR chest 1V portable [id number] Urgent Exams 11/15/21 11:28 Completed Pending at discharge Category Date Time Status Basic Metabolic Panel AM LABS Lab 11/18/21 04:00 Ordered COVID [SARS Covid-2 Antigen] Routine Lab 11/17/21 13:19 Uncollected Complete Blood Count w/Auto AM LABS Lab 11/18/21 04:00 Ordered Radiology Impressions Chest X-Ray 11/15/21 11:28 IMPRESSION: 1. Volume loss right hemithorax. 2. Interstitial congestion right lower lobe and right lung apex. 3. Hyperexpanded left lung Chest CTA 11/15/21 13:50 IMPRESSION: 1. 1 or 2 tiny filling defects in the RIGHT upper lobe pulmonary arteries suspicious for pulmonary embolus. 2. Proximal main pulmonary arteries are normal. 3. Subpleural masslike pleural-based mass in the LEFT lower lobe is new from the prior studies measuring 3.3 x 1.6 cm suspicious for neoplasm. Small amount of surrounding infiltrate. Recommend correlation for pneumonia and short interval follow-up 2-3 weeks after treatment. 4. Subpleural lesion suspicious for metastatic disease versus neoplasm. Pleural-based mass could be further evaluated with PET/CT or possibly CT-guided biopsy if persistent after treatment. 5. Prior postoperative changes RIGHT lower lobectomy. Trace RIGHT pleural fluid pleural thickening. 6. Tiny esophageal hiatal hernia. Notified Eduardo Pike MD at 11/15/2021 2:50 PM. Laboratory Results WBC 7.0 10^3/uL (4.0-10.0) 11/17/21 04:02 RBC 3.50 10^6/uL (4.1-5.3) L 11/17/21 04:02 Hgb 9.6 g/dL (11.7-16.6) L 11/17/21 04:02 Hct 31.5 % (42.0-52.0) L 11/17/21 04:02 MCV 90.0 fl (80-94) 11/17/21 04:02 MCH 27.4 pg (28.0-34.0) L 11/17/21 04:02 MCHC 30.5 g/dL (30.0-36.0) 11/17/21 04:02 RDW 13.2 % (12.1-15.1) 11/17/21 04:02 Plt Count 145 10^3/cmm (130-400) 11/17/21 04:02 MPV 10.3 fL (7.4-10.4) 11/17/21 04:02 Neut % (Auto) 73.2 % 11/17/21 04:02 Lymph % (Auto) 16.8 % 11/17/21 04:02 [place] % (Auto) 7.2 % 11/17/21 04:02 Eos % (Auto) 2.1 % 11/17/21 04:02 Baso % (Auto) 0.4 % 11/17/21 04:02 Neut # (Auto) 5.11 10^3/uL (1.8-7.7) 11/17/21 04:02 Lymph # (Auto) 1.2 10^3/uL (0.8-4.8) 11/17/21 04:02 [place] # (Auto) 0.5 10^3/uL (0.2-0.9) 11/17/21 04:02 Eos # (Auto) 0.2 10^3/uL (0.0-0.8) 11/17/21 04:02 Baso # (Auto) 0.0 10^3/uL (0.0-0.1) 11/17/21 04:02 Nucleated RBC % (auto) 0 % 11/17/21 04:02 Nucleated RBCs # 0.0 /100WBC 11/17/21 04:02 Specimen Type Arterial 11/15/21 11:48 Sample Site Radial, right 11/15/21 11:48 ABG pH 7.37 (7.35-7.45) 11/15/21 11:48 ABG pCO2 52.2 mmHg (35-45) H 11/15/21 11:48 ABG pO2 81.2 mmHg (80.0-100.0) 11/15/21 11:48 ABG HCO3 30.3 mmol/L (22-26) H 11/15/21 11:48 ABG Base Excess 4.1 mmol/L (-2.0-2.0) H 11/15/21 11:48 Singh Test Pos 11/15/21 11:48 Hematocrit 32.7 % (42-52) L 11/15/21 11:48 O2 Delivery Device Nc 11/15/21 11:48 O2 Liters/Min 6.0 % 11/15/21 11:48 FiO2 44.0 % 11/15/21 11:48 Tie Knitter Helper ID Monro 11/15/21 11:48 Sodium 145 mmol/L (136-145) 11/17/21 04:02 Potassium 4.2 mmol/L (3.5-5.1) 11/17/21 04:02 Chloride 105 mmol/L (98-107) 11/17/21 04:02 Carbon Dioxide 32 mmol/L (22-29) H 11/17/21 04:02 Anion Gap 12.2 (5-19) 11/17/21 04:02 BUN 17 mg/dL (8-23) 11/17/21 04:02 Creatinine 0.6 mg/dL (0.7-1.2) L 11/17/21 04:02 GFR Calculation 133.2 mL/min (90-130) H 11/17/21 04:02 Glucose 280 mg/dL (65-115) H 11/17/21 04:02 POC Glucose 288 mg/dL (70-110) H 11/17/21 11:27 Calculated Osmolality 312 mOsm/kg (285-295) H 11/17/21 04:02 Lactate 2.2 mmol/L (0.5-2.2) 11/15/21 12:30 Calcium 9.2 mg/dL (8.5-10.5) 11/17/21 04:02 Total Bilirubin 0.3 mg/dL (0.15-1.2) 11/15/21 12:03 AST 13 U/L (0-40) 11/15/21 12:03 ALT 13 U/L (0-41) 11/15/21 12:03 Alkaline Phosphatase 110 IU/L (40-130) 11/15/21 12:03 Troponin T Baseline 8 ng/L (0-15) 11/15/21 12:03 Troponin T 120 Minute 16.81 ng/L (0-15) H 11/15/21 14:25 Delta Troponin T 8.81 ABS# (0-10) 11/15/21 14:25 Troponin T Hi Sens 6Hr 15.53 ng/L (0-15) H 11/15/21 18:06 Troponin T Hi Sens 6Hr Delta 7.53 ng/L (0-12) 11/15/21 18:06 NT-Pro-B Natriuret Pep 129 pg/mL (0-125) H 11/15/21 12:03 Total Protein 7.2 g/dL (6.6-8.7) 11/15/21 12:03 Albumin 4.3 g/dL (3.5-5.2) 11/15/21 12:03 Globulin 2.9 g/dL (1.3-4.6) 11/15/21 12:03 Procalcitonin 0.04 ng/mL (0-0.5) 11/15/21 12:03 Vitals Last Vital Signs Temp 98.0 F 11/17/21 07:24 Pulse 89 11/17/21 11:43 Resp 17 11/17/21 11:43 BP 117/61 11/17/21 11:43 Pulse Ox 97 11/17/21 11:43 O2 Del Method 11/17/21 11:43 O2 Flow Rate 5 11/17/21 11:43 Discharge Plan Discharge Patient Disposition: Home Condition: Stable Prescriptions: New Eliquis 5 mg tablet 5 mg PO BID Qty: 60 3RF Rx Instructions: Take 10 mg po BID Till 11/22 AND THEN 5 MG PO BID Augmentin 500-125 mg tablet 1 tab PO BID Qty: 20 0RF Continued naproxen sodium 220 mg capsule 220 mg PO BID PRN (Reason: Pain) 30 Days Qty: 60 0RF omeprazole 40 mg capsule,delayed release(DR/EC) 40 mg PO DAILY escitalopram oxalate [Lexapro] 10 mg tablet 10 mg PO DAILY hydrocodone-acetaminophen 7.5-325 mg tablet 1 tab PO TID PRN (Reason: pain) 30 Days Qty: 90 0RF Rx Instructions: Fill on or after 06/13/21 morphine 15 mg tablet extended release 15 mg PO Q12H 30 Days Qty: 60 0RF Rx Instructions: fill on or after 06/12/21 azithromycin 250 mg tablet 250 mg PO .COMPLEX 90 Days Qty: 45 1RF Rx Instructions: 250 mg PO; Saturday rosuvastatin 10 mg tablet 10 mg PO BEDTIME alendronate 70 mg Tablet 70 mg PO Q7D Rx Instructions: ON SATURDAY multivitamin Tablet 1 tab PO DAILY tamsulosin 0.4 mg Capsule 0.4 mg PO DAILY albuterol sulfate [Ventolin HFA] 90 mcg/actuation Hfa Aerosol Inhaler 1 - 2 puff inhalation QID PRN (Reason: Shortness Of Breath) metformin 750 mg Tablet Extended Release 24 Hr 750 mg PO BID calcium carbonate-vitamin D3 600 mg(1,500mg) -200 unit Tablet 1 tab PO DAILY felodipine 10 mg tablet extended release 24 hr 10 mg PO DAILY neomycin-polymyxin B-dexameth [Maxitrol] 3.5 mg/g-10,000 unit/g-0.1 % ointment See Rx Instructions .ROUTE .COMPLEX Rx Instructions: 0.25 inch to right eye tid Trelegy Ellipta 100-62.5-25 mcg blister with device 1 inh inhalation DAILY Vitamin D3 25 mcg (1,000 unit) Tablet 25 mcg PO DAILY cetirizine 10 mg Tablet,Disintegrating 10 mg PO DAILY Discontinued aspirin [Aspir-81] 81 mg Tablet,Delayed Release (Dr/Ec) 81 mg PO DAILY Discharge Orders: Discharge Order (Routine); Ordered 11/17/21 Ordered By: Jony Norton Other Ambulatory Orders: Complete Blood Count w/Auto (Routine) Timeframe: 1 Week Location: Determined by Patient Ordered By: Jony Norton CT chest w con* [id number] (Routine) Timeframe: 3 Weeks Facility: [facility] - Location: Radiology [facility] Ordered By: Jony Norton Referrals: Rossana Ruggiero MD [Primary Care Provider] - 11/23/21 10:45 am Suzette Riggs MD [Physician] - 11/29/21 12:45 pm Hussein Yo MD [Staff Physician] - 2 weeks ([facility] should call you with an appointment time. If you haven't heard from them by Saturday please call [phone] to make an appointment. Eve is the equipment scheduler. ) Patient Instructions: COPD, Amoxicillin/Clavulanate Potassium (By mouth), Apixaban (By mouth), Pulmonary Embolism (DC), COPD Stoplight, Opioid Safety Discharge Attestations Time Spent in Discharge Care*: less than 30 min Quality Metrics Clinical Quality Measures [ No reported AMI, CVA or VTE this stay] Coding Level of Care Code Acute Chg FW DC note Exam Detailed Diagnoses Shortness of breath R06.02 Pulmonary emboli I26.99 Pneumonia J18.9 Pleural mass J94.8 Chronic low back pain with left-sided sciatica M54.42; G89.29 Lung cancer C34.90 COPD (chronic obstructive pulmonary disease) J44.9 Diabetes E11.9
--- NOTE | 2021-11-17 14:27 | PC.SOCIAL ---
IMM Update pg 2 of IMM updated and reviewed w/ patient. Copy provided and Copy in chart initialed and dated.
[2021-11-17 15:03] LABS: SARS Covid-2 Antigen Negative (Negative)
--- NOTE | 2021-11-17 16:08 | PC.NURSE ---
Called report to Patricia Booth LPN at [facility].
--- NOTE | 2021-11-17 16:12 | PC.NURSE ---
Patient stated 130-140 dollars missing out of wallet. Was not documented in chart upon admission that patient had wallet or money. Charge nurse was notified.
== END 2021-11-17 16:13 | disposition skilled nursing facility (03) ==
LOC: ER 15:28 → MEDSURG 18:31
PROVIDERS: Admitting Provider Internal Medicine; Emergency Provider Emergency Medicine; PCP Family Medicine; Visit Provider Internal Medicine
DX: R06.02 Shortness of breath (principal); I26.99 Other pulmonary embolism without acute cor pulmonale; J18.9 Pneumonia, unspecified organism; J94.8 Other specified pleural conditions; M54.42 Lumbago with sciatica, left side; G89.29 Other chronic pain; C34.90 Malignant neoplasm of unspecified part of unspecified bronchus or lung; J44.9 Chronic obstructive pulmonary disease, unspecified; E11.9 Type 2 diabetes mellitus without complications; Z90.2 Acquired absence of lung [part of]; Z87.891 Personal history of nicotine dependence
CPT/HCPCS: 36415; 36416; 36600; 71045; 71275; 80048; 80053; 82803; 82962; 83605; 83880; 84145; 84484; 85025; 87426; 93005; 94640; 96365; 96367; 96372; 99285; G0378; J0456; J0696; J1650; J1815; J1956; J2930; J7050; J7626; Q9967

== ENCOUNTER → 2021-11-29 12:39 | Outpatient (BNVA) | payer MEDICARE, MEDICAID, SELFPAY | PROVIDERS: PCP Internal Medicine; Visit Provider Internal Medicine Critical Care Medicine | DX: J96.11 Chronic respiratory failure with hypoxia (principal); R91.8 Other nonspecific abnormal finding of lung field; I26.99 Other pulmonary embolism without acute cor pulmonale; J43.9 Emphysema, unspecified; Z99.81 Dependence on supplemental oxygen; Z85.118 Personal history of other malignant neoplasm of bronchus and lung; Z90.2 Acquired absence of lung [part of]; Z79.01 Long term (current) use of anticoagulants | CPT/HCPCS: 99214 ==

== ENCOUNTER 2021-12-14 14:02 | Oncology outpatient (recurring) (ONCR) | payer MEDICARE, MEDICAID, SELFPAY ==
[2021-12-14 14:38] LABS: Basophils % 0.6 %; Eosinophils # 0.2 10^3/uL (0.0-0.8); Eosinophils % 3.3 %; Hematocrit 33.1 % (42.0-52.0); Hemoglobin 10.3 g/dL (11.7-16.6); Lymphocytes # 1.2 10^3/uL (0.8-4.8); Lymphocytes % 17.9 %; Mean Corpuscular HGB Conc 31.1 g/dL (30.0-36.0); Mean Corpuscular Hemoglobin 27.6 pg (28.0-34.0); Mean Corpuscular Volume 88.7 fl (80-94); Mean Platelet Volume 10.1 fL (7.4-10.4); Monocytes # 0.5 10^3/uL (0.2-0.9); Monocytes % 7.8 %; Neutrophils # 4.65 10^3/uL (1.8-7.7); Neutrophils % 70.1 %; Nucleated Red Blood Cells % 0 %; Platelet Count 218 10^3/cmm (130-400); Red Blood Count 3.73 10^6/uL (4.1-5.3); Red Cell Distribution Width 12.9 % (12.1-15.1); White Blood Count 6.6 10^3/uL (4.0-10.0)
[2021-12-14 15:01] LABS: Alanine Aminotransferase 25 U/L (0-41); Albumin Level 4.2 g/dL (3.5-5.2); Alkaline Phosphatase 160 U/L (40-130); Aspartate Amino Transferase 18 U/L (0-40); Blood Urea Nitrogen 20 mg/dL (8-23); Calcium 9.7 mg/dL (8.5-10.5); Carbon Dioxide 28 mmol/L (22-29); Chloride 101 mmol/L (98-107); Ferritin 169 ng/mL (30-400); Glomerular Filtration Rate 111.5 mL/min (90-130); Glucose 207 mg/dL (65-115); Iron 55 ug/dL (59-158); Osmolality Calculated 297 mOsm/kg (285-295); Percent Saturation 18.4 % (20-50); Sodium 139 mmol/L (136-145); Total Bilirubin 0.2 mg/dL (0.15-1.2); Total Iron Binding Capacity 298 mcg/dl; Total Protein 7.2 g/dL (6.6-8.7); Unsaturated Iron Binding 243 ug/dL (112-347)
== END 2022-01-12 23:59 | disposition home or self-care (01) ==
PROVIDERS: PCP Internal Medicine; Visit Provider Internal Medicine Hematology & Oncology
DX: D50.9 Iron deficiency anemia, unspecified (principal); Z79.899 Other long term (current) drug therapy; I26.99 Other pulmonary embolism without acute cor pulmonale; Z79.01 Long term (current) use of anticoagulants; J44.9 Chronic obstructive pulmonary disease, unspecified; R91.1 Solitary pulmonary nodule; Z87.891 Personal history of nicotine dependence
CPT/HCPCS: 36415; 80053; 82728; 83540; 83550; 85025; 99214

== ENCOUNTER 2022-01-18 14:00 | Oncology outpatient (recurring) (ONCR) | payer MEDICARE, MEDICAID, SELFPAY ==
[2022-01-18 14:33] LABS: Basophils % 0.2 %; Eosinophils # 0.2 10^3/uL (0.0-0.8); Eosinophils % 2.7 %; Hematocrit 32.9 % (42.0-52.0); Hemoglobin 10.4 g/dL (11.7-16.6); Lymphocytes % 12.8 %; Mean Corpuscular HGB Conc 31.6 g/dL (30.0-36.0); Mean Corpuscular Hemoglobin 27.5 pg (28.0-34.0); Monocytes # 0.7 10^3/uL (0.2-0.9); Monocytes % 8.1 %; Neutrophils # 6.17 10^3/uL (1.8-7.7); Nucleated Red Blood Cells % 0 %; Platelet Count 221 10^3/cmm (130-400); Red Blood Count 3.78 10^6/uL (4.1-5.3); Red Cell Distribution Width 12.5 % (12.1-15.1); White Blood Count 8.1 10^3/uL (4.0-10.0)
[2022-01-18 14:52] LABS: Ferritin 159 ng/mL (30-400); Iron 37 ug/dL (59-158); Total Iron Binding Capacity 306 mcg/dl; Unsaturated Iron Binding 269 ug/dL (112-347)
== END 2022-02-12 23:59 | disposition home or self-care (01) ==
PROVIDERS: PCP Internal Medicine; Visit Provider Internal Medicine Hematology & Oncology
DX: D50.9 Iron deficiency anemia, unspecified (principal); I26.99 Other pulmonary embolism without acute cor pulmonale; Z79.01 Long term (current) use of anticoagulants; Z79.899 Other long term (current) drug therapy; Z87.891 Personal history of nicotine dependence; R91.8 Other nonspecific abnormal finding of lung field
CPT/HCPCS: 36415; 82728; 83540; 83550; 85025; 99214

== ENCOUNTER 2022-01-25 10:18 | Outpatient (CLI) | payer MEDICARE, MEDICAID, SELFPAY ==
--- NOTE | 2022-01-25 10:30 | CT_ITS ---
WS: [id number] CT CHEST WITHOUT INTRAVENOUS CONTRAST HISTORY: History of RIGHT lung cancer. Status post RIGHT lower lobectomy. Follow-up LEFT lower lobe m ass. TECHNIQUE: Contiguous 5 mm axial imaging performed on the thorax. Coronal and sagittal reformats are submitted. All CT scans at [facility] use at least one of these dose optimization techniques: automated exposure control; mA and/or kV adjustment per patient size (includes targeted exams where dose is matched to clinical indication); or iterative reconstruction. CONTRAST: None DLP: 688.59 mGy.cm COMPARISON: 11/15/2021 and 02/17/2020 Lungs and central airway: Volume loss in the RIGHT thorax with shift of the mediastinal structures to the RIGHT secondary to the RIGHT lower lobectomy. Again noted is a solid mass in the medial LEFT low er lobe measuring 3.3 x 1.5 cm without significant increase in size. There is a small amount of adjac ent atelectasis and inflammation. No new or additional nodules. No endobronchial lesion. Pleura: Pleural thickening throughout the RIGHT thorax from prior surgery. Heart and pericardium: Normal size heart with no pericardial effusion. Mediastinum and mesha: No mediastinum or hilar adenopathy. Calcified hilar lymph nodes. Vessels: Mild atherosclerosis aorta. Normal size pulmonary artery. Chest wall and lower neck: No soft tissue masses. Upper abdomen: No adrenal mass. Prior cholecystectomy. Unenhanced imaging of the liver is negative. Osseous structures: Increase in thoracic kyphosis. Moderate spondylitic changes in the thoracic spine . No destructive bone lesions. CT/CT chest wo con [id number] IMPRESSION: 1. No increase in size of the medial LEFT lower lobe mass since 11/15/2021. Mass measures 3.3 x 1.5 cm. Recommend follow-up chest CT in 3 months. 2. Prior RIGHT lower lobectomy. 3. Postsurgical changes in the RIGHT thorax are stable. 4. Prior cholecystectomy. 5. No mediastinal or hilar adenopathy.
== END 2022-01-25 10:19 | disposition home or self-care (01) ==
LOC: RAD 10:20
PROVIDERS: PCP Internal Medicine; Visit Provider Internal Medicine Critical Care Medicine
DX: R91.8 Other nonspecific abnormal finding of lung field (principal); Z90.2 Acquired absence of lung [part of]; Z90.49 Acquired absence of other specified parts of digestive tract
CPT/HCPCS: 71250

== ENCOUNTER 2022-02-15 22:22 | Inpatient (IN) | payer MEDICARE, MEDICAID, SELFPAY ==
[2022-02-15 22:23] VITALS: BP 155/83; PULSE 117; RESP 25; TEMP 35.6; O2SAT 89; BMI 23.7
--- NOTE | 2022-02-15 22:29 | ECG_ITS ---
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 Measurements Intervals [place] Rate: 119 P: 73 WA: 141 QRS: 58 QRSD: 100 T: 148 QT: 308 QTc: 435 Interpretive Statements SINUS TACHYCARDIA SEPTAL MYOCARDIAL INFARCTION , OF INDETERMINATE AGE [40+ ms Q WAVE IN V1/V2] Compared to ECG 11/15/2021 17:33:01 Myocardial infarct finding now present Sinus rhythm no longer present Electronically Signed On 02-16-2022 11:48:10 CDT by Rafaela Bradley M.D. [email or web address] regional medical centerAvolentmercy health st[facility].Ringly/store/NU/[id number] f
--- NOTE | 2022-02-15 22:30 | XRR_ITS ---
PROCEDURE INFORMATION: Exam: XR Chest Exam date and time: 02/15/2022 11:03 PM Age: 71 years old Clinical indication: Shortness of breath; Prior surgery; Surgery type: RT lung; Patient HX: C/O SOB. History of lung cancer. TECHNIQUE: Imaging protocol: Radiologic exam of the chest. Views: 1 view. COMPARISON: CT chest con [id number] 01/25/2022 10:31 AM FINDINGS: Lungs: Prior partial pneumonectomy results in right-sided hemithorax volume loss. There is enlargement of the pulmonary vascularity. There is thickening of the interstitial markings. Pleural spaces: Unremarkable. No pleural effusion. No pneumothorax. Heart/Mediastinum: The heart is mildly enlarged. Bones/joints: Unremarkable. XR/XR chest 1V portable [id number] IMPRESSION: Congestive heart failure.
[2022-02-15 22:31] VITALS: BP 89/57; PULSE 116; RESP 27; O2SAT 92
--- NOTE | 2022-02-15 22:32 | ED_ITS ---
HPI - SOB/Dyspnea General: Chief Complaint: Shortness of Breath/Dyspnea Stated Complaint: RESP. DISTRESS Time Seen by Provider: 02/15/22 22:26 Source: EMS Mode of arrival: EMS Limitations: no limitations History of Present Illness: HPI Narrative: 71-year-old male who has a history of lung cancer has had a lobectomy history of COPD from smoking. [facility] he states he has had increasing shortness of breath over the last 2 days EMS has him on nonrebreather and was able to take him off the nonrebreather and he is on 4 L of oxygen here he typically wears 2 he is in distress able to talk in roughly 4-5 word sentences he has tachypnea he has had a cough that is chronic denies any fever denies any chest pain. Associated symptoms: Deny abdominal pain, chest pain, fever(s), nausea or vomiting Review of Systems Const: Denies: fever(s), chills, body aches or change in appetite Eyes: Denies: blurry vision or eye discomfort ENMT: Denies: throat pain or dental pain Card: Denies: chest pain Resp: Reports: dyspnea GI: Denies: abdominal pain, nausea, vomiting or diarrhea : Denies: dysuria Musc: Denies: neck pain or back pain Skin/Breast: Denies: rash Neuro: Denies: headache(s) Psych: Denies: depression Jax/Lymph: Denies: easy bruising All/Imm: Denies: urticaria PFSH ED PFSH: Medical History Chronic low back pain with left-sided sciatica COPD (chronic obstructive pulmonary disease) COPD (chronic obstructive pulmonary disease) Diabetes GERD (gastroesophageal reflux disease) Low back pain of over 3 months duration Lung cancer Lung cancer Lung cancer Pleural mass Pneumonia Pulmonary emboli Shortness of breath Type 2 diabetes mellitus Surgical History H/O esophagogastroduodenoscopy (05/10/20) History of lobectomy of lung right lung-Dr. Hwang [place] Hx of cholecystectomy Hx of eye surgery bilat-Dr. Navarrete did right and Dr. Perez in [place] Hx of kyphoplasty 07/05/[address] Agarin Status post colonoscopy (05/11/20) normal Family History Brother Cancer Diabetes Heart disease Social History Smoking and tobacco status: former smoker (smoked x 40 years) Quit status (tobacco): has quit using tobacco Year quit tobacco: 2015 - PPD x 45 Years Former quit date comment: Started at age 17 Second hand smoke exposure: No Smoking risk assessment/counseling performed?: Yes Alcohol intake: former Year of sobriety/quit date alcohol: 2013 Former alcohol use details: beer Lives independently: Yes Household members: none Marital status: service: No Current occupational status: disabled History of recent travel: No Current gender identity: Male Physical Exam Const: COMMON NORMALS: patient oriented x3 GENERAL APPEARANCE: frail appearing HENMT: COMMON NORMALS: normocephalic and atraumatic HEAD & SCALP: normocephalic and atraumatic Eye: COMMON NORMALS: Equal, round and reactive pupils present and EOMs intact bilaterally PUPIL: Yes Equal, round and reactive pupils present Neck/C-Spine: COMMON NORMALS: full ROM and supple Chest: COMMONS NORMALS: normal inspection of the chest and normal palpation of entire chest wall Resp: EFFORT & INSPECTION: Yes tachypneic and Yes labored AUSCULTATION: wheezes and diminished lung sounds Cardio: COMMON NORMALS: regular rhythm and No murmurs present (Cardio) RATE: tachycardic RHYTHM: regular rhythm GI: COMMON NORMALS: Normal to inspection, nondistended, normoactive bowel sounds present, Soft to palpation, non-tender and no masses PALPATION: Yes Soft to palpation Extremity: COMMON NORMALS: normal to inspection and full ROM Neuro: COMMON NORMALS: patient oriented x3, moves all extremities and no focal motor deficits Psych: COMMON NORMALS: mental status grossly normal, Normal thought process present and cooperative THOUGHT PROCESS: Normal thought process present Skin: COMMON NORMALS: no rashes or lesions noted and no wounds GENERAL SKIN EXAM: no rashes or lesions noted Course Vital Signs: Vital signs: Vital Signs Temperature 96.0 F L 02/15/22 22:23 Pulse Rate 93 02/16/22 01:35 Respiratory Rate 25 H 02/16/22 01:35 Blood Pressure 100/74 02/16/22 01:35 Pulse Oximetry 91 02/16/22 01:35 Oxygen Delivery Me thod 02/16/22 01:00 Oxygen Flow Rate 5 02/16/22 01:00 MDM - SOB/Dyspnea Medical Decision Making Moses presents here with dyspnea he is requiring more oxygen than his baseline CT showed a possible pneumonia he has an elevated troponin here as well EKG shows n o acute findings I did review second EKG with Dr. Cloud who agrees it is not a STEMI he has had no chest pain here we will start him on IV antibiotics along with Lovenox and admit to the ICU. Lab Data : 02/15/22 22:35 02/15/22 22:35 Labs/Radiology: Radiology Impressions Chest X-Ray 02/15/22 22:30 IMPRESSION: Congestive heart failure. Chest CTA 02/15/22 23:38 IMPRESSION: 1. No pulmonary embolism. 2. No aortic dissection. 3. Thickening of the interstitial markings which may be secondary to edema or interstitial pneumonia. 4. Grossly stable 3.9 cm left lower lobe mass lesion. Laboratory Results WBC 14.6 10^3/uL (4.0-10.0) H 02/15/22 22:35 RBC 4.14 10^6/uL (4.1-5.3) 02/15/22 22:35 Hgb 11.0 g/dL (11.7-16.6) L 02/15/22 22:35 Hct 35.9 % (42.0-52.0) L 02/15/22 22:35 MCV 86.7 fl (80-94) 02/15/22 22:35 MCH 26.6 pg (28.0-34.0) L 02/15/22 22:35 MCHC 30.6 g/dL (30.0-36.0) 02/15/22 22:35 RDW 12.7 % (12.1-15.1) 02/15/22 22:35 Plt Count 304 10^3/cmm (130-400) 02/15/22 22:35 MPV 10.6 fL (7.4-10.4) H 02/15/22 22:35 Neut % (Auto) 87.8 % 02/15/22 22:35 Lymph % (Auto) 6.7 % 02/15/22 22:35 [place] % (Auto) 4.2 % 02/15/22 22:35 Eos % (Auto) 0.5 % 02/15/22 22:35 Baso % (Auto) 0.4 % 02/15/22 22:35 Neut # (Auto) 12.86 10^3/uL (1.8-7.7) H 02/15/22 22:35 Lymph # (Auto) 1.0 10^3/uL (0.8-4.8) 02/15/22 22:35 [place] # (Auto) 0.6 10^3/uL (0.2-0.9) 02/15/22 22:35 Eos # (Auto) 0.1 10^3/uL (0.0-0.8) 02/15/22 22:35 Baso # (Auto) 0.1 10^3/uL (0.0-0.1) 02/15/22 22:35 Nucleated RBC % (auto) 0 % 02/15/22 22: Nucleated RBCs # 0.0 /100WBC 02/15/22 22:35 PT 17.70 SECONDS (12.1-14.9) H 02/15/22 22:35 INR 1.42 (0.8-1.2) H 02/15/22 22:35 Specimen Type Arterial 02/15/22 23:04 Sample Site Radial, right 02/15/22 23:04 ABG pH 7.33 (7.35-7.45) L 02/15/22 23:04 ABG pCO2 58.1 mmHg (35-45) H 02/15/22 23:04 ABG pO2 67.2 mmHg (80.0-100.0) L 02/15/22 23:04 ABG HCO3 30.9 mmol/L (22-26) H 02/15/22 23:04 ABG Base Excess 3.8 mmol/L (-2.0-2.0) H 02/15/22 23:04 Singh Test Pos 02/15/22 23:04 Hematocrit 34.5 % (42-52) L 02/15/22 23:04 Hgb O2 Saturation 89.1 % (95-100) L 02/15/22 23:04 Carboxyhemoglobin 0.6 %THgb (0.4-20.1) 02/15/22 23:04 Methemoglobin 0.9 % (0.4-1.5) 02/15/22 23:04 Total Hemoglobin 11.3 g/dL (14-18) L 02/15/22 23:04 O2 Delivery Device Nc 02/15/22 23:04 O2 Liters/Min 5.0 % 02/15/22 23:04 Pediatric Medical Assistant ID Randy 02/15/22 23:04 Sodium 135 mmol/L (136-145) L 02/15/22 22:35 Potassium 4.8 mmol/L (3.5-5.1) 02/15/22 22:35 Chloride 95 mmol/L (98-107) L 02/15/22 22:35 Carbon Dioxide 30 mmol/L (22-29) H 02/15/22 22:35 Anion Gap 14.8 (5-19) 02/15/22 22:35 BUN 13 mg/dL (8-23) 02/15/22 22:35 Creatinine 0.8 mg/dL (0.7-1.2) 02/15/22 22:35 GFR Calculation 95.6 mL/min (90-130) 02/15/22 22:35 Glucose 333 mg/dL (65-115) H 02/15/22 22:35 Calculated Osmolality 293 mOsm/kg (285-295) 02/15/22 22:35 Lactic Acid 1.7 mmol/L (0.5-2.2) 02/15/22 22:35 Calcium 9.7 mg/dL (8.5-10.5) 02/15/22 22:35 Total Bilirubin 0.3 mg/dL (0.15-1.2) 02/15/22 22:35 AST 12 U/L (0-40) 02/15/22 22:35 ALT 9 U/L (0-41) 02/15/22 22:35 Alkaline Phosphatase 132 U/L (40-130) H 02/15/22 22:35 Troponin T Baseline 111 ng/L (0-15) H* 02/15/22 22:35 NT-Pro-B Natriuret Pep 464 pg/mL (0-125) H 02/15/22 22:35 Total Protein 7.4 g/dL (6.6-8.7) 02/15/22 22:35 Albumin 3.8 g/dL (3.5-5.2) 02/15/22 22:35 Globulin 3.6 g/dL (1.3-4.6) 02/15/22 22:35 Lipase 8 U/L (13-60) L 02/15/22 22:35 Influenza Type A Ag negative (Negative) 02/15/22 22:50 Influenza Type B Ag negative (Negative) 02/15/22 22:50 EKG Data EKG 1: I personally reviewed and interpreted this EKG as follows: EKG Interpretation Date: 02/15/22 EKG interpretation time: 22:30 Interpretation: sinus tach hr [address] or t wave abnormalities qrs 100 qtc 379 Critical Care Time Critical Care Time: Critical Care Time: Yes Total Critical Care Time: 45 Attestation: The high probability of a clinically significant, sudden or life threatening deterioration of the patient's resp system(s) required my full and direct attention, intervention and personal management. The critical care time is as shown. This time is in addition to time spent performing any reported procedures but includes the following: [x] Data and vital sign review and interpretation [x] Patient assessment, examination and intervention [x] Documentation [x] Medication orders and management Discharge Plan Discharge Patient Disposition: Admitted As Inpatient Admit Provider: Sherri Mendoza Clinical Impression: Community acquired pneumonia, Lung cancer, Acute respiratory failure with hypoxemia, Elevated troponin Condition: Stable Coding Level of Care Code ED Certified Mortician for Chg Fwd Exam Comprehensive
[2022-02-15 22:41] LABS: Basophils # 0.1 10^3/uL (0.0-0.1); Basophils % 0.4 %; Eosinophils # 0.1 10^3/uL (0.0-0.8); Eosinophils % 0.5 %; Hematocrit 35.9 % (42.0-52.0); Lymphocytes % 6.7 %; Mean Corpuscular HGB Conc 30.6 g/dL (30.0-36.0); Mean Corpuscular Hemoglobin 26.6 pg (28.0-34.0); Mean Corpuscular Volume 86.7 fl (80-94); Mean Platelet Volume 10.6 fL (7.4-10.4); Monocytes # 0.6 10^3/uL (0.2-0.9); Monocytes % 4.2 %; Neutrophils # 12.86 10^3/uL (1.8-7.7); Neutrophils % 87.8 %; Nucleated Red Blood Cells % 0 %; Platelet Count 304 10^3/cmm (130-400); Red Blood Count 4.14 10^6/uL (4.1-5.3); Red Cell Distribution Width 12.7 % (12.1-15.1); White Blood Count 14.6 10^3/uL (4.0-10.0)
[2022-02-15 22:51] LABS: INR 1.42 (0.8-1.2)
[2022-02-15 22:58] LABS: Lactic Sepsis W/Reflex 1.7 mmol/L (0.5-2.2)
[2022-02-15 23:06] VITALS: PULSE 124; RESP 20; O2SAT 91
[2022-02-15] MEDS: ipratropium-albuterol 3 mL Neb INHALATION (23:07)
[2022-02-15 23:08] VITALS: PULSE 122
[2022-02-15 23:09] LABS: Alanine Aminotransferase 9 U/L (0-41); Albumin Level 3.8 g/dL (3.5-5.2); Alkaline Phosphatase 132 U/L (40-130); Anion Gap 14.8 (5-19); Aspartate Amino Transferase 12 U/L (0-40); Blood Urea Nitrogen 13 mg/dL (8-23); Calcium 9.7 mg/dL (8.5-10.5); Carbon Dioxide 30 mmol/L (22-29); Chloride 95 mmol/L (98-107); Globulin 3.6 g/dL (1.3-4.6); Glomerular Filtration Rate 95.6 mL/min (90-130); Glucose 333 mg/dL (65-115); Lipase 8 U/L (13-60); NT Pro B Type Natriuretic Pept 464 pg/mL (0-125); Osmolality Calculated 293 mOsm/kg (285-295); Potassium 4.8 mmol/L (3.5-5.1); Sodium 135 mmol/L (136-145); Total Bilirubin 0.3 mg/dL (0.15-1.2); Total Protein 7.4 g/dL (6.6-8.7)
[2022-02-15 23:11] LABS: Influenza A by IFA negative (Negative); Influenza B by IFA negative (Negative)
[2022-02-15 23:14] VITALS: RESP 21
[2022-02-15] MEDS: morphine 4 mg/mL SDV 1 mL 8 MG IVP (23:14)
[2022-02-15 23:16] LABS: ABG PCO2 58.1 mmHg (35-45); ABG PH Result 7.33 (7.35-7.45); Arterial Blood Gas Hematocrit 34.5 % (42-52); Base Excess ABG 3.8 mmol/L (-2.0-2.0); Blood Gas Allen Test Pos; Blood Gas Operator Identificat WALCI; Blood Gas Sample Site Radial, right; Blood Gas Sample Type Arterial; Carboxyhemoglobin 0.6 %THgb (0.4-20.1); HCO3 ABG 30.9 mmol/L (22-26); HGB O2 Sat 89.1 % (95-100); Methemoglobin 0.9 % (0.4-1.5); Oxygen Device NC; PO2 ABG 67.2 mmHg (80.0-100.0); Total Hemoglobin 11.3 g/dL (14-18)
[2022-02-15 23:19] LABS: Troponin(5th) Baseline 111 ng/L (0-15)
--- NOTE | 2022-02-15 23:38 | CTR_ITS ---
PROCEDURE INFORMATION: Exam: CTA Chest With Contrast Exam date and time: 02/15/2022 11:51 PM Age: 71 years old Clinical indication: Shortness of breath; Prior surgery; Surgery type: RT lung; Patient HX: SOB with elevated troponin. History of lung cancer. TECHNIQUE: Imaging protocol: Computed tomographic angiography of the chest with contrast. 3D rendering (Not supervised by radiologist): MIP and/or 3D reconstructed images were created by the technologist. Radiation optimization: All CT scans at this facility use at least one of these dose optimization techniques: automated exposure control; mA and/or kV adjustment per patient size (includes targeted exams where dose is matched to clinical indication); or iterative reconstruction. Contrast material: OMNI 350; Contrast volume: 89 ml; Contrast route: INTRAVENOUS (IV); COMPARISON: CT angio chest PE protcl [id number] 11/15/2021 2:01 PM RADIATION DOSE METRICS: Total DLP (mGy-cm): 1071.79 FINDINGS: Pulmonary arteries: No pulmonary embolism. Aorta: No aortic dissection. Lungs: Right partial pneumonectomy. Thickening of the interstitial markings which may be secondary to edema or interstitial pneumonia. Grossly stable 3.9 cm left lower lobe mass lesion. Pleural spaces: Unremarkable. No pneumothorax. No pleural effusion. Heart: Unremarkable. No cardiomegaly. No pericardial effusion. Lymph nodes: Calcified lymph nodes are present, secondary to prior granulomatous disease. Bones/joints: Unremarkable. No acute fracture. Soft tissues: Unremarkable. CT/CT angio chest PE protcl [id number] IMPRESSION: 1. No pulmonary embolism. 2. No aortic dissection. 3. Thickening of the interstitial markings which may be secondary to edema or interstitial pneumonia. 4. Grossly stable 3.9 cm left lower lobe mass lesion.
[2022-02-16] VITALS (92 sets, daily range): BP systolic 86–146; BP diastolic 52–103; PULSE 65–136; RESP 14–31; TEMP 34.3–36.6; O2SAT 70–100; BMI 24.7
[2022-02-16] MEDS: iohexol 350 mg/mL 500 mL Btl (per mL) IV (00:03)
[2022-02-16] MEDS: sodium chloride 0.9% 1,000 ML 999 ML IV ×2 (00:20→00:55)
--- NOTE | 2022-02-16 00:29 | ECG_ITS ---
[facility] Test Date: 2022-02-16 Pat Name: Moses Cardoza Department: Room: Gender: Male Rn Lvn: : 1950 Requested By: Beverly You Order Number: [id number] Rafiq MD: Rafaela Bradley M.D. Measurements Intervals [place] Rate: 100 P: 64 HI: 123 QRS: 56 QRSD: 95 T: 109 QT: 355 QTc: 458 Interpretive Statements SINUS TACHYCARDIA SEPTAL MYOCARDIAL INFARCTION , PROBABLY RECENT Compared to ECG 02/15/2022 22:30:05 No significant changes Electronically Signed On 02-16-2022 11:53:24 CDT by Rafaela Bradley M.D. [id number]
--- NOTE | 2022-02-16 00:42 | ECG_ITS ---
[facility] Test Date: 2022-02-16 Pat Name: Moses Cardoza Department: Room: Gender: Male Crystal Mounter: : 1950 Requested By: Beverly You Order Number: [id number] Rafiq MD: Rafaela Bradley M.D. Measurements Intervals [place] Rate: 98 P: 78 ID: [id number] QRS: 55 QRSD: 94 T: 121 QT: 364 QTc: 466 Interpretive Statements SINUS RHYTHM SEPTAL MYOCARDIAL INFARCTION , PROBABLY RECENT Compared to ECG 02/16/2022 00:35:32 Sinus tachycardia no longer present Myocardial infarct finding still present Electronically Signed On 02-16-2022 11:52:51 CDT by Rafaela Bradley M.D. [id number]
[2022-02-16] MEDS: cefTRIAXone 1,000 MG in sodium chloride 0.9% (plus) 50 ML 100 MG IV (00:55)
[2022-02-16] MEDS: enoxaparin 80 mg/0.8 mL Syringe SUBCUT ×2 (01:05→13:27)
[2022-02-16] MEDS: azithromycin 500 MG in sodium chloride 0.9% 250 ML 250 MG IV (01:15)
[2022-02-16 01:35] LABS: Troponin 5 2HR 143.6 ng/L (0-15); Troponin 5 2HR Delta 32.6 ABS# (0-10)
--- NOTE | 2022-02-16 02:19 | USCV_ITS ---
Moses Cardoza Age: 71 Gender: M : 1950 Exam Date: 02/16/2022 04:48 Ordering Phys: Sherri Mendoza MD Technologist: LOTTIE [place] [facility] [place]: NSTEMI; History of end-stage COPD; worsening dyspnea. hx lung CA s/p RLLobectomy BP: 118 / 82 HR: 82 Rhythm: Sinus Technical Quality: Technically difficult study c/o COPD, low heart MEASUREMENTS (Male / Female) Normal Values 2D ECHO LV Diastolic Diameter PLAX 4.8 cm 4.2 - 5.9 / 3.9 - 5.3 cm LV Systolic Diameter PLAX 4.1 cm IVS Diastolic Thickness 1.0 cm 0.6 - 1.0 / 0.6 - 0.9 cm IVS Systolic Thickness 1.0 cm LVPW Diastolic Thickness 1.3 cm 0.6 - 1.0 / 0.6 - 0.9 cm LVPW Systolic Thickness 1.5 cm LVOT Diameter 2.2 cm LV Ejection Fraction 2D Teich 31.0 % LV Ejection Fraction MOD 2C 34.6 % LV Ejection Fraction 2C AL 35.3 % LA Diameter 3.8 cm LA Width 3.7 cm LA Height 5.6 cm RA Width 4.0 cm RA Height 4.3 cm Aorta at Sinotubular Diameter 2.5 cm IVC Diameter 2.5 cm M-MODE Aortic Annulus Diameter 3.5 cm LA Ao Ratio MM 1.1 DOPPLER AV Peak Velocity 146.0 cm/s LVOT Peak Velocity 54.0 cm/s AV Area Cont Eq vti 1.4 cm squared AV Area Cont Eq pk 1.5 cm squared MV Area PHT 3.6 cm squared Mitral E to A Ratio 0.5 MV E' Velocity 30.5 cm/s Mitral E to MV E' Ratio 6.5 Mitral E to LV E' Lateral Ratio 4.2 Mitral E to LV E' Septal Ratio 14.4 TR Peak Velocity 199.0 cm/s TR Peak Gradient 15.8 mmHg TV Peak E Velocity 36.3 cm/s Right Atrial Pressure 5.0 mmHg Pulmonary Artery Systolic Pressu 20.8 mmHg PV Peak Velocity 84.0 cm/s RV Acceleration Time 0.1 s RV Ejection Time 0.3 s RV AcT/ET 0.4 FINDINGS Left Ventricle The echo was limited to the subcostal view given severe COPD and previous thoracic surgery. The ventricle is probably normal in size to upper limit of normal in size. There is global hypokinesis to a moderate degree. The anterior wall and apex may be slightly more hypokinetic. A rough estimate of the ejection fraction would be 35%. There is grade 1 diastolic dysfunction. Right Ventricle Right ventricle not well visualized. Normal right ventricular systolic function. Right Atrium The right atrium is normal in size. Left Atrium Mildly increased left atrial size. Mitral Valve Structurally normal mitral valve. Mitral valve not well visualized. Trace mitral valve regurgitation. Aortic Valve Aortic valve not well visualized. Mild aortic valve calcification. Aortic valve sclerosis without stenosis or regurgitation. Tricuspid Valve Structurally normal tricuspid valve. Tricuspid valve not well visualized. Trace tricuspid valve regurgitation. Pulmonic Valve Pulmonic valve not well visualized. Pericardium Normal pericardium without effusion. Aorta Aorta not well visualized. IVC The inferior vena cava does not quite collapse normally with respiration. CONCLUSIONS The echo was limited to the subcostal view given severe COPD and previous thoracic surgery. The ventricle is probably normal in size to upper limit of normal in size. There is global hypokinesis to a moderate degree. The anterior wall and apex may be slightly more hypokinetic. A rough estimate of the ejection fraction would be 35%. There is grade 1 diastolic dysfunction. Mildly increased left atrial size. Structurally normal mitral valve. Mitral valve not well visualized. Trace mitral valve regurgitation. The inferior vena cava does not quite collapse normally with respiration. There are no prior echocardiogram studies to compare. Dr. Hoang Cloud MD (Electronically Signed) Final Date: 16 February 2022 08:28 S
[2022-02-16 02:23] LABS: Adenovirus Not Detected (NOT DETECT); Chlamydia Pneumoniae Not Detected (NOT DETECT); Coronavirus 229E,HKU1,NL63,OC4 Not Detected (NOT DETECT); Human Metapneumovirus Not Detected (NOT DETECT); Human Rhinovirus/Enterovirus Not Detected (NOT DETECT); Influenza A Not Detected (NOT DETECT); Influenza A H1 Not Detected (NOT DETECT); Influenza A H1-2009 Not Detected (NOT DETECT); Influenza A H3 Not Detected (NOT DETECT); Influenza B Not Detected (NOT DETECT); Mycoplasma Pneumoniae Not Detected (NOT DETECT); Parainfluenza Virus Type 1 Not Detected (NOT DETECT); Parainfluenza Virus Type 2 Not Detected (NOT DETECT); Parainfluenza Virus Type 3 Not Detected (NOT DETECT); Parainfluenza Virus Type 4 Not Detected (NOT DETECT); Respiratory Syncytial Virus A Not Detected (NOT DETECT); Respiratory Syncytial Virus B Not Detected (NOT DETECT); SARS-COV-2 Not Detected (NOT DETECT)
--- NOTE | 2022-02-16 02:30 | P.HP_ITS ---
Providers/Chief Complaint Admitting Physician: Sherri Mendoza MD Primary Care Provider: Daniel Leyva DO Chief Complaint: RESP. DISTRESS History of Present Illness Moses Cardoza is a 71 year old male with past medical history of lung cancer, advanced COPD, chronic hypoxemic respiratory failure, small PE in November 2021, severe exertional shortness of breath at the baseline. He is currently brought from half-way with chief complaints of worsening dyspnea over the past 2 days. Patient is significantly tachypneic at this time. He is diaphoretic, pale extremely uncomfortable and unable to participate in his history owing to dyspnea. He denies any current chest pain. While being brought to the hospital via EMS he did receive sublingual nitro and has had 8 mg of morphine. Of note patient is on chronic morphine extended release and hydrocodone APAP at half-way. Upon initial presentation to the ER his O2 sats was noted to be 89% on room air, thereafter at the time of my assessment patient is saturating 70% on 15 L nonrebreather. He is being placed on a BiPAP at this time. His labs today are notable for elevated troponin, 111 at baseline, trending up to 143 with a delta of 32.6. Upon initial arrival there was concern for possible STEMI, however EKG was discussed by ER physician with shop lead Dr. Cloud, and it was opined that findings are not that of a STEMI. He has nonspecific ST-T wave abnormality in leads V4 V5. Chest x-ray shows enlarged p ulmonary vascularity interpreted as CHF per radiology. CTA of his chest negative for PE, no aortic dissection, thickening of interstitial markings secondary to edema. Review of Systems General: Reports: 10 or more systems reviewed and unremarkable except in HPI and below Const: Denies: fever(s), chills or body aches Eyes: Denies: change in vision, blurry vision or photophobia ENMT: Reports: hoarseness; Denies: throat pain, enlarged tonsils, odynophagia or nasal congestion Card: Denies: chest pain, palpitations, irregular heart rhythm, edema, swelling of feet/ankles, lightheadedness, pre-syncope, dyspnea on exertion or orthopnea Resp: Denies: dyspnea, productive cough, non-productive cough, wheezing, stridor, pain on inspiration, change in phlegm color, hemoptysis or chest congestion GI: Denies: abdominal pain, nausea, vomiting, hematemesis, coffee ground emesis, dysphagia, heartburn, diarrhea, constipation, GI cramping, change in stool character, hematochezia or melena : Denies: flank pain, dysuria, urinary frequency, urinary urgency, urinary hesitancy or hematuria Musc: Denies: neck pain, back pain, extremity pain, joint swelling, joint warmth or deformity Neuro: Denies: headache(s), numbness in extremities, weakness in extremities, sensory changes, difficulty walking, frequent falls, dizziness, vertigo, behavioral changes, Slurred speech present or seizure-like activity Psych: Denies: anxiety, depression, suicidal ideation or homicidal ideation Endo: Denies: polyuria, polydipsia, tired all the time, cold intolerance or hot flashes Jax/Lymph: Denies: easy bruising or easy bleeding Medications/Allergies Home Medications Medication Instructions Recorded Confirmed Last Taken Type albuterol sulfate 90 mcg/actuation 1 - 2 puff inhalation QID PRN 04/16/1910/0411/15/21 History aerosol inhaler (Ventolin HFA) Shortness Of Breath alendronate 70 mg tablet 70 mg PO Q7D 04/16/19 01/18/22 11/15/21 History metformin 750 mg tablet,extended 750 mg PO BID 04/16/19 01/18/22 11/15/21 History release 24 hr tamsulosin 0.4 mg capsule 0.4 mg PO DAILY 04/16/19 01/18/22 11/14/21 History rosuvastatin 10 mg tablet 10 mg PO BEDTIME 03/08/20 01/18/22 11/14/21 History omeprazole 40 mg capsule,delayed 40 mg PO DAILY 05/28/20 01/18/22 11/15/21 History release escitalopram oxalate 10 mg tablet 10 mg PO DAILY 06/16/20 01/18/22 11/15/21 History (Lexapro) naproxen sodium 220 mg capsule 220 mg PO BID PRN Pain 30 days #60 02/09/21 01/18/22 11/15/21 Rx caps hydrocodone 7.5 mg-acetaminophen 1 tab PO TID PRN pain 30 days #90 05/10/21 01/18/22 11/15/21 Rx 325 mg tablet tabs fluticasone fur. 100 mcg-umeclid 1 inh inhalation DAILY 05/25/21 01/18/22 11/15/21 History 62.5 mcg-vilant 25 mcg inhalat.powder (Trelegy Ellipta) neomycin 3.5 mg/g-polymyxin B See Rx Instructions .Route .COMPLEX 05/25/21 01/18/22 11/15/21 History 10,000 unit/g-dexameth 0.1 % eye oint (Maxitrol) azithromycin 250 mg tablet 250 mg PO .COMPLEX 90 days #45 tabs 10/06/21 01/18/22 11/15/21 Rx cetirizine 10 mg disintegrating 10 mg PO DAILY 11/15/21 01/18/22 11/15/21 History tablet cholecalciferol (vitamin D3) 25 25 mcg PO DAILY 11/15/21 01/18/22 11/15/21 History mcg (1,000 unit) tablet (Vitamin D3) apixaban 5 mg tablet (Eliquis) 5 mg PO BID #60 tabs 11/17/21 01/18/22 Unknown Rx bisacodyl 10 mg rectal suppository 10 mg ME DAILY PRN 01/18/22 01/18/22 Unknown History (Dulcolax (bisacodyl)) ferrous sulfate 325 mg (65 mg 325 mg PO DAILY 01/18/22 01/18/22 Unknown History iron) tablet magnesium hydroxide 400 mg/5 mL 30 ml PO DAILY PRN 01/18/22 01/18/22 Unknown History oral suspension (Milk of Magnesia) morphine 15 mg tablet,extended 30 mg PO Q12H pain 01/18/22 Unknown History release peg 400-propylene glycol 0.4 %-0.3 1 drp ophthalmic (eye) .COMPLEX 01/18/22 01/18/22 Unknown History % eye drops polyethylene glycol 3350 17 gram 17 g PO DAILY PRN 01/18/22 01/18/22 Unknown History oral powder packet sitagliptin 100 mg tablet (Januvia) 100 mg PO DAILY 01/18/22 01/18/22 Unknown History sodium phosphates 19 gram-7 118 ml [place] DAILY PRN 01/18/22 01/18/22 Unknown History gram/118 mL enema (Fleet Enema) Allergies Allergy/AdvReac Type Severity Reaction Status Date / Time tree and shrub pollen Allergy ADR-Headach Verified 02/16/22 02:23 e PFSH Acute PFSH: Medical History Chronic low back pain with left-sided sciatica COPD (chronic obstructive pulmonary disease) COPD (chronic obstructive pulmonary disease) Diabetes GERD (gastroesophageal reflux disease) Low back pain of over 3 months duration Lung cancer Lung cancer Lung cancer Pleural mass Pneumonia Pulmonary emboli Shortness of breath Type 2 diabetes mellitus Surgical History H/O esophagogastroduodenoscopy (05/10/20) History of lobectomy of lung right lung-Dr. Hwang -[place] Hx of cholecystectomy Hx of eye surgery bilat-Dr. Navarrete did right and Dr. Perez in [place] Hx of kyphoplasty 07/05/[address] Powell Status post colonoscopy (05/11/20) normal Family History Brother Cancer Diabetes Heart disease Social History Smoking and tobacco status: former smoker (smoked x 40 years) Quit status (tobacco): has quit using tobacco Year quit tobacco: 2015 PPD x 45 Years Former quit date comment: Started at age 17 Second hand smoke exposure: No Smoking risk assessment/counseling performed?: Yes Alcohol intake: former Year of sobriety/quit date alcohol: 2013 Former alcohol use details: beer Lives independently: Yes Household members: none Marital status: service: No Current occupational status: disabled History of recent travel: No Current gender identity: Male Vitals/I&O/Wt Last Vital Signs Temp 96.0 F L 02/15/22 22:23 Pulse 136 H 02/16/22 02:16 Resp 31 H 02/16/22 02:16 BP 146/103 02/16/22 02:16 Pulse Ox 99 02/16/22 02:16 O2 Del Method 02/16/22 02:09 O2 Flow Rate 15 02/16/22 02:09 02/15/22 02/15/22 02/16/22 14:59 22:59 06:59 Intake Total 1300 / 1300 Balance 1300 / 1300 Weight last 48 hrs Weight 80.467 kg Weight 77.111 kg Physical Exam Narrative: General: Acutely ill-appearing man, tachypneic, pale, diaphoretic, unable to complete sentences HEENT: PERRLA, pupils bilaterally equal and reactive, pallors + Chest: Bilateral wheezing to auscultation, restricted air entry all lung acuña CVS: Tachycardic, heart rate 120s. Abdomen: Soft, nontender, no organomegaly, bowel sounds present Neuro: No focal deficits, no facial deformity, AO x3, power 5/5 in all limbs Data : 02/15/22 22:35 02/15/22 22:35 Micro: Microbiology 02/16/22 00:25 Blood Culture - Preliminary Blood SPECIMEN COLLECTED 02/16/22 00:15 Blood Culture - Preliminary Blood SPECIMEN COLLECTED ABG Interpretation 1: 02/15/22 23:04 ABG pH 7.33 L ABG pCO2 58.1 H ABG pO2 67.2 L ABG HCO3 30.9 H ABG Base Excess 3.8 H A&P Assessment and plan (1) Acute on chronic respiratory failure with hypoxemia: Acute on chronic hypoxemic respiratory failure. Patient is in acute respiratory distress at this present time. Started on BiPAP ventilation. Differentials include acute pulmonary edema likely from NSTEMI versus COPD exacerbation CTA of his chest is negative for PE. CTA additionally makes note of pneumonia, however per review infiltrates on his CT does not appear to be new. There is concern as outpatient for intermittent microaspiration's. Levofloxacin 750 mg IV q. 24. Degree of respiratory distress is out of proportion to the small infi ltrates seen on CTA. Also noted interstitial edema on CT. Lasix 40 mg IV now, monitor urine output and renal function with a.m. labs Bilateral wheezing on auscultation, DuoNeb inhalation every 6 hours, budesonide every 12 hours Received Solu-Medrol 125 mg in the ED, will continue with 30 mg IV every 8 hours. Negative COVID and influenza (2) NSTEMI (non-ST elevated myocardial infarction): Baseline troponin at 111, 2-hour trending up at 143 with a delta of 32, awaiting 6-hour troponin Started on Lovenox 1 mg/kg subcu every 12 hours Discontinue Eliquis while on Lovenox currently. EKG without acute ST-T wave changes at this present time as discussed by ER physician with cardiology. Cardiology consult this a.m. Check echocardiogram Start aspirin 81 mg daily, statins (3) COPD (chronic obstructive pulmonary disease): Scheduled DuoNeb and budesonide inhalation as noted above. Steroids as noted above Plan Diabetes mellitus: Insulin sliding scale while acutely ill. History of lung cancer, status postresection several years ago, SAROJ on serial imaging and to few months ago where there is a suspicious pleural-based appearing lesion on the left side. Nature of this mass is not currently known. CT guided biopsy was deferred in favor of PET scan due to high risk of pneumothorax and his advanced COPD. Patient is planned to undergo a PET scan in mid January, however I am unable to find the results of this at this present time. Continue home doses of his pain medications including MS Contin 30 mg p.o. every 12 hours and hydrocodone APAP 7.5 325 3 times daily as needed. DVT ppx: on lovenox DNR/DNI Attestations Medical Necessity Statement*: Anticipate greater than 2 midnight admission for above defined care. Critical Care Time: The high probability of a clinically significant, sudden or life threatening deterioration of the patient's [respiratory, cardiac] system(s) required my full and direct attention, intervention and personal management. The critical care time is as shown. This time is in addition to time spent performing any reported procedures but includes the following: [x] Data and vital sign review and interpretation [x] Patient assessment, examination and intervention [x] Documentation [x] Medication orders and management Critical Care Time (min): 60 Coding Level of Care Code Acute Putty T[employer] Maker for Camila Ko Diagnoses Acute on chronic respiratory failure with hypoxemia J96.21 NSTEMI (non-ST elevated myocardial infarction) I21.4 COPD (chronic obstructive pulmonary disease) J44.9
[2022-02-16] MEDS: ipratropium-albuterol 3 mL Neb INHALATION ×4 (02:33→19:31)
[2022-02-16] MEDS: pantoprazole 40 mg SDV IVP (02:49)
[2022-02-16] MEDS: FUROsemide 10 mg/mL SDV 4mL 40 MG IVP ×3 (02:49→17:25)
[2022-02-16 03:14] LABS: Glucose Point of Care 321 mg/dL (70-110)
[2022-02-16 04:35] LABS: Troponin 5 6HR 163.1 ng/L (0-15); Troponin 5 6HR Delta 52.1 ng/L (0-12)
[2022-02-16] MEDS: budesonide 0.5 mg/2 mL Neb INHALATION ×2 (07:59→19:31)
--- NOTE | 2022-02-16 08:22 | PC.PHAR ---
pt is from [facility] [phone]-medications entered are meds from the pts mar that nadira from [facility] faxed
--- NOTE | 2022-02-16 08:28 | PM.CONSULT ---
Providers/Reason For Consult Consulting Physician/Specialty*: Dr. Bradley, cardiology Reason for Consult*: NSTEMI Attending Physician: Xavier Brownlee MD Primary Care Provider: Daniel Leyva DO History of Present Illness History of Present Illness Moses Cardoza is a 71 year old male with past medical history of lung cancer s/p right lower lobectomy in 09/2014 for localized squamous cell carcinoma and recent recurrence, advanced COPD, chronic hypoxemic respiratory failure, small PE in November 2021. No prior cardiac history. No echo or stress tests in our system. [facility] with worsening dyspnea over the past 2 days.? He was diaphoretic, pale? and most of the history was obtained from chart. He denies any current chest pain.? He was placed on a BiPAP at this time. He was treated for COPD exacerbation and also got lasix with ~700 ml of UO this morning.? Chest x-ray shows pulmonary congestion.? CTA of his chest negative for PE, no aortic dissection, thickening of interstitial markings secondary to edema. EKG shows sinus rhythm, possibly recent septal infarct and ST depression and T wave inversion in I, aVL, V4-V6. These changes are new when compared to prior EKG. Patient took his dose of Eliquis yesterday evening and since then has been transitioned to lovenox. Review of Systems General: Reports: Other (limited d/t medical condition) Const: Denies: fever(s) or chills Eyes: Denies: change in vision Card: Reports: edema (minimal); Denies: chest pain Resp: Reports: dyspnea and wheezing; Denies: chest congestion GI: Denies: abdominal pain : Denies: dysuria, oliguria or hematuria Musc: Denies: extremity swelling Skin/Breast: Denies: rash Psych: Denies: anxiety, depression or irritability Endo: Denies: tired all the time Jax/Lymph: Reports: easy bruising and easy bleeding All/Imm: Reports: acute wheezing Medications/Allergies Home Medications Medication Instructions Recorded Confirmed Last Taken Type alendronate 70 mg tablet 70 mg PO Q7D 04/16/19 02/16/22 11/15/21 History tamsulosin 0.4 mg capsule 0.4 mg PO QPM 04/16/19 02/16/22 11/14/21 History rosuvastatin 10 mg tablet 10 mg PO BEDTIME 03/08/20 02/16/22 11/14/21 History omeprazole 40 mg capsule,delayed 40 mg PO DAILY 05/28/20 02/16/22 11/15/21 History release escitalopram oxalate 10 mg tablet 10 mg PO DAILY 06/16/20 02/16/22 11/15/21 History (Lexapro) naproxen sodium 220 mg capsule 220 mg PO BID PRN Pain 30 days #60 02/09/21 02/16/22 11/15/21 Rx caps neomycin 3.5 mg/g-polymyxin B See Rx Instructions .Route .COMPLEX 05/25/21 02/16/22 11/15/21 History 10,000 unit/g-dexameth 0.1 % eye oint (Maxitrol) cholecalciferol (vitamin D3) 25 25 mcg PO DAILY 11/15/21 02/16/22 11/15/21 History mcg (1,000 unit) tablet (Vitamin D3) apixaban 5 mg tablet (Eliquis) 5 mg PO BID #60 tabs 11/17/21 02/16/22 02/15/22 20:00 Rx bisacodyl 10 mg rectal suppository 10 mg KS DAILY PRN Constipation 01/18/22 02/16/22 Unknown History (Dulcolax (bisacodyl)) ferrous sulfate 325 mg (65 mg 325 mg PO DAILY 01/18/22 02/16/22 Unknown History iron) tablet magnesium hydroxide 400 mg/5 mL 30 ml PO DAILY PRN Constipation 01/18/22 02/16/22 Unknown History oral suspension (Milk of Magnesia) peg 400-propylene glycol 0.4 %-0.3 1 drp ophthalmic (eye) .COMPLEX 01/18/22 02/16/22 Unknown History % eye drops (Lubricant Eye (PG-PEG 400)) polyethylene glycol 3350 17 gram 17 g PO DAILY 01/18/22 02/16/22 Unknown History oral powder packet sitagliptin 100 mg tablet (Januvia) 100 mg PO DAILY 01/18/22 02/16/22 Unknown History sodium phosphates 19 gram-7 118 ml KS DAILY PRN Constipation 01/18/22 02/16/22 Unknown History gram/118 mL enema (Fleet Enema) albuterol sulfate 2.5 mg/3 mL 2.5 mg inhalation Q4H PRN 02/16/22 02/16/22 Unknown History (0.083 %) solution for nebulization Shortness Of Breath budesonide 0.5 mg/2 mL suspension 0.5 mg inhalation BID 02/16/22 02/16/22 Unknown History for nebulization cetirizine 10 mg tablet (Zyrtec) 10 mg PO DAILY 02/16/22 02/16/22 Unknown History guaifenesin 100 mg/5 mL oral liquid 100 mg PO Q4H PRN Cough 02/16/22 02/16/22 Unknown History ipratropium 0.5 mg-albuterol 3 mg 3 ml inhalation TID 02/16/22 02/16/22 Unknown History (2.5 mg base)/3 mL nebulization soln metformin 500 mg tablet 750 mg PO BID 02/16/22 02/16/22 Unknown History morphine 30 mg tablet,extended 30 mg PO TID@07,15,02/16/22 02/16/22 Unknown History release Allergies Allergy/AdvReac Type Severity Reaction Status Date / Time tree and shrub pollen Allergy ADR-Headach Verified 02/16/22 02:23 e Current Medications Generic Name Dose Route Start Last Admin Trade Name Freq PRN Reason Stop Dose Admin Albuterol/Ipratropium 3 ml 02/16/22 08:00 02/16/22 07:58 Ipratropium-Albuterol 3 Ml Neb INHALATION 3 ml Q6H.RESP CÉSAR Administration Budesonide 0.5 mg 02/16/22 08:00 02/16/22 07:59 Budesonide 0.5 Mg/2 Ml Neb INHALATION 0.5 mg BID.RESPIRATORY CÉSAR Administration Methylprednisolone Sodium Succinate 30 mg 02/16/22 07:00 02/16/22 06:03 Methylprednisolone Sod Succ 40 Mg/Ml Inj IVP 30 mg Q8H CÉSAR Administration Pantoprazole Sodium 40 mg 02/16/22 02:30 02/16/22 02:49 Pantoprazole 40 Mg Sdv IVP 40 mg Q24H CÉSAR Administration PFSH Acute PFSH: Medical History (Updated 02/16/22 @ 16:56 by Rafaela Bradley MD) Chronic low back pain with left-sided sciatica COPD (chronic obstructive pulmonary disease) COPD (chronic obstructive pulmonary disease) Diabetes GERD (gastroesophageal reflux disease) Low back pain of over 3 months duration Lung cancer Lung cancer Lung cancer Pleural mass Pneumonia Pulmonary emboli Shortness of breath Type 2 diabetes mellitus Surgical History H/O esophagogastroduodenoscopy (05/10/20) History of lobectomy of lung right lung-Dr. Hwang -[place] Hx of cholecystectomy Hx of eye surgery bilat-Dr. Navarrete did right and Dr. Perez in [place] Hx of kyphoplasty 07/05/[address] Powell Status post colonoscopy (05/11/20) normal Family History Brother Cancer Diabetes Heart disease Social History Smoking and tobacco status: former smoker (smoked x 40 years) Quit status (tobacco): has quit using tobacco Year quit tobacco: 2015 PPD x 45 Years Former quit date comment: Started at age 17 Second hand smoke exposure: No Smoking risk assessment/counseling performed?: Yes Alcohol intake: former Year of sobriety/quit date alcohol: 2013 Former alcohol use details: beer Lives independently: Yes Household members: none Marital status: service: No Current occupational status: disabled History of recent travel: No Current gender identity: Male Vitals/I&O/Wt Last Vital Signs Temp 96.7 F L 02/16/22 03:30 Pulse 93 02/16/22 08:00 Resp 28 H 02/16/22 07:59 BP 89/62 02/16/22 05:30 Pulse Ox 99 02/16/22 08:00 O2 Del Method 02/16/22 07:59 O2 Flow Rate 15 02/16/22 02:09 FiO2 35 02/16/22 08:00 02/15/22 02/16/22 02/16/22 22:59 06:59 14:59 Intake Total 2300 / 2300 Output Total 650 / 650 Balance 1650 / 1650 Weight last 48 hrs Weight 177 lb 6.4 oz Weight 170 lb Physical Exam Narrative: GENERAL: Averagely built and averagely nourished on BiPaP HEENT: Extraocular movement intact. No pallor or icterus. NECK: JVD not appreciated CARDIOVASCULAR SYSTEM: S1-S2 regular. No murmur RESPIRATORY SYSTEM: Prolonged expiration and decreased BS at bases. No wheezes, + rhonchi ABDOMEN: Soft, nontender and nondistended. Normal bowel sounds present. EXTREMITIES: No cyanosis or edema. GEOGRAPHY DEPARTMENT CHAIR: Patient is alert oriented ?3. No focal neurological deficits. Urinary Catheter Management: Ray Latex: Cath Placed During This Visit: yes Reason for Continuing Indwelling Catheter: Accurate Measurement of Urinary Output in Critically Ill Patients Urinary Catheter Date of Insertion: 02/16/22 Urinary Catheter Time of Insertion: 02:40 Data : 02/16/22 11:42 02/16/22 11:42 Micro: Microbiology 02/16/22 00:25 Blood Culture - Preliminary Blood SPECIMEN COLLECTED 02/16/22 00:15 Blood Culture - Preliminary Blood SPECIMEN COLLECTED Other data: Chest CTA IMPRESSION: 1. No pulmonary embolism. 2. No aortic dissection. 3. Thickening of the interstitial markings which may be secondary to edema or interstitial pneumonia. 4. Grossly stable 3.9 cm left lower lobe mass lesion TTE CONCLUSIONS ?The echo was limited to the subcostal view given severe COPD and ?previous thoracic surgery.? The ventricle is probably normal in ?size to upper limit of normal in size.? There is global ?hypokinesis to a moderate degree.? The anterior wall and apex ?may be slightly more hypokinetic.? A rough estimate of the ?ejection fraction would be 35%.? There is grade 1 diastolic ?dysfunction. ?Mildly increased left atrial size. ?Structurally normal mitral valve. Mitral valve not well ?visualized. Trace mitral valve regurgitation. ?The inferior vena cava does not quite collapse normally with ?respiration. ?There are no prior echocardiogram studies to compare. A&P Assessment and plan (1) Acute on chronic respiratory failure with hypoxemia: Currently on BiPaP, FiO2 35% (2) CHF exacerbation: Newly diagnosed cardiomyopathy with RWMA agree with diuresis -replace potassium and Magnesium as needed (3) NSTEMI (non-ST elevated myocardial infarction): Plan for C once patient more euvolemic -On ASA, statin. add beta antonio as tolerated. (4) COPD (chronic obstructive pulmonary disease): (5) Lung mass: Recurrence of lung cancer (6) Pulmonary embolism on right: Hold Eliquis (7) Diabetes: Coding Level of Care Code Acute Rn Gyn for [facility] Stefani Diagnoses Acute on chronic respiratory failure with hypoxemia J96.21 CHF exacerbation I50.9 NSTEMI (non-ST elevated myocardial infarction) I21.4 COPD (chronic obstructive pulmonary disease) J44.9 Lung mass R91.8 Pulmonary embolism on right I26.99 Diabetes E11.9
[2022-02-16] MEDS: morphine ER (12 HR) 15 mg Tablet 30 MG PO ×2 (08:47→19:35)
[2022-02-16] MEDS: aspirin 81 mg EC Tablet PO (08:47)
[2022-02-16 12:22] LABS: Hematocrit 30.9 % (42.0-52.0); Hemoglobin 9.4 g/dL (11.7-16.6); Lymphocytes # 0.3 10^3/uL (0.8-4.8); Lymphocytes % 8.3 %; Mean Corpuscular HGB Conc 30.4 g/dL (30.0-36.0); Mean Corpuscular Hemoglobin 26.5 pg (28.0-34.0); Mean Platelet Volume 10.8 fL (7.4-10.4); Monocytes # 0.1 10^3/uL (0.2-0.9); Monocytes % 1.6 %; Neutrophils # 3.33 10^3/uL (1.8-7.7); Neutrophils % 89.6 %; Nucleated Red Blood Cells % 0 %; Platelet Count 162 10^3/cmm (130-400); Red Blood Count 3.55 10^6/uL (4.1-5.3); Red Cell Distribution Width 12.5 % (12.1-15.1); White Blood Count 3.7 10^3/uL (4.0-10.0)
[2022-02-16 12:41] LABS: Magnesium 1.5 mg/dL (1.7-2.3); Phosphorus 3.3 mg/dL (2.5-4.5)
[2022-02-16 12:43] LABS: NT Pro B Type Natriuretic Pept 7538 pg/mL (0-125); Procalcitonin 0.19 ng/mL (0-0.5)
[2022-02-16 12:54] LABS: Alanine Aminotransferase 13 U/L (0-41); Albumin Level 3.4 g/dL (3.5-5.2); Alkaline Phosphatase 119 U/L (40-130); Anion Gap 15.1 (5-19); Aspartate Amino Transferase 18 U/L (0-40); Blood Urea Nitrogen 15 mg/dL (8-23); Carbon Dioxide 29 mmol/L (22-29); Chloride 98 mmol/L (98-107); Globulin 3.1 g/dL (1.3-4.6); Glomerular Filtration Rate 111.5 mL/min (90-130); Glucose 307 mg/dL (65-115); Osmolality Calculated 298 mOsm/kg (285-295); Potassium 4.1 mmol/L (3.5-5.1); Sodium 138 mmol/L (136-145); Total Bilirubin 0.2 mg/dL (0.15-1.2); Total Protein 6.5 g/dL (6.6-8.7)
[2022-02-16 13:06] LABS: Iron 33 ug/dL (59-158); Percent Saturation 13.1 % (20-50); Total Iron Binding Capacity 251 mcg/dl; Unsaturated Iron Binding 218 ug/dL (112-347)
[2022-02-16] MEDS: magnesium sulfate premix 2 GM/50 ML PIGGYBACK IV (13:28)
[2022-02-16] MEDS: morphine 4 mg/mL SDV 1 mL 2 MG IVP (14:58)
--- NOTE | 2022-02-16 15:39 | PM.MISC ---
Miscellaneous Note Purpose of Documentation: Cross coverage note. Note: Admitted overnight. H&P and labs appreciated. On examination seen in ICU with BiPAP at 35% saturating 98%. Patient is hemodynamically stable. Not on Levophed. As per the nurse patient has been taken off of BiPAP on nasal cannula complaint of shortness of breath along with having difficulty in swallowing. Patient apparently having cough with swallow. Urine output appreciated. Plan: NSTEMI: Cardiology recommendations appreciated. No active chest pain currently. Check CBC, CMP, magnesium, lipid panel, A1c. Continue with aspirin, statin. Continue with full dose Lovenox. Echocardiogram results appreciated. Patient found to have an EF of around 35% global LV hypokinesia along with regional wall motion abnormality, grade 1 diastolic dysfunction, mildly increased LA size. Features of CHF. IV Lasix 40 mg twice daily. Replace potassium. Strict input output proper charting, fluid restriction up to 1500 cc. Insulin sliding scale. Lispro every 6 hourly. Swallow evaluation. N.p.o. except medications for now. Check MRSA swab. Hold off on any further antibiotics other than Levaquin for now. Sputum culture.
[2022-02-16] MEDS: lanolin oint 7 gm 1 APPLIC TOPICAL (16:06)
[2022-02-16] MEDS: potassium chloride ER 20 mEq Tablet PO (17:25)
[2022-02-16] MEDS: insulin lispro 100 unit/1 mL SUBCUT (18:15)
[2022-02-16] MEDS: atorvastatin 40 mg Tablet PO (20:47)
[2022-02-16] MEDS: insulin lispro 100 unit/1 mL 10 UNIT SUBCUT (22:03)
[2022-02-17] VITALS (55 sets, daily range): BP systolic 94–160; BP diastolic 54–99; PULSE 62–120; RESP 14–31; TEMP 36.3–36.8; O2SAT 84–100
[2022-02-17] MEDS: enoxaparin 80 mg/0.8 mL Syringe SUBCUT ×2 (00:25→12:07)
[2022-02-17] MEDS: levofloxacin-dextrose 5 % 750 MG/150 ML PREMIX 100 MG IV (00:27)
[2022-02-17] MEDS: insulin lispro 100 unit/1 mL SUBCUT ×4 (00:31→18:00)
[2022-02-17] MEDS: pantoprazole 40 mg SDV IVP (01:32)
[2022-02-17] MEDS: ipratropium-albuterol 3 mL Neb INHALATION ×4 (02:04→20:10)
[2022-02-17] MEDS: morphine 4 mg/mL SDV 1 mL 2 MG IVP (03:35)
[2022-02-17 03:41] LABS: Glucose Point of Care 440 mg/dL (70-110)
[2022-02-17 03:41] LABS: Glucose Point of Care 329 mg/dL (70-110)
[2022-02-17 03:41] LABS: Glucose Point of Care 219 mg/dL (70-110)
[2022-02-17 03:55] LABS: Basophils % 0.1 %; Hematocrit 33.9 % (42.0-52.0); Hemoglobin 10.3 g/dL (11.7-16.6); Lymphocytes # 0.4 10^3/uL (0.8-4.8); Lymphocytes % 4.5 %; Mean Corpuscular HGB Conc 30.4 g/dL (30.0-36.0); Mean Corpuscular Volume 85.6 fl (80-94); Mean Platelet Volume 10.9 fL (7.4-10.4); Monocytes # 0.5 10^3/uL (0.2-0.9); Monocytes % 5.2 %; Neutrophils # 8.21 10^3/uL (1.8-7.7); Neutrophils % 89.8 %; Nucleated Red Blood Cells % 0 %; Platelet Count 197 10^3/cmm (130-400); Red Blood Count 3.96 10^6/uL (4.1-5.3); Red Cell Distribution Width 12.5 % (12.1-15.1); White Blood Count 9.2 10^3/uL (4.0-10.0)
[2022-02-17 04:26] LABS: Estmated Average Glucose 160; Hemoglobin A1C 7.2 % (4.0-6.0)
[2022-02-17 04:27] LABS: Alanine Aminotransferase 12 U/L (0-41); Albumin Level 3.8 g/dL (3.5-5.2); Alkaline Phosphatase 121 U/L (40-130); Anion Gap 15.7 (5-19); Aspartate Amino Transferase 16 U/L (0-40); Blood Urea Nitrogen 22 mg/dL (8-23); Calcium 9.5 mg/dL (8.5-10.5); Carbon Dioxide 32 mmol/L (22-29); Chloride 95 mmol/L (98-107); Chol HDL Ratio 3.22 mg/dL (1.0-5.00); Cholesterol 116 mg/dL (0-200); Globulin 3.1 g/dL (1.3-4.6); Glomerular Filtration Rate 111.5 mL/min (90-130); Glucose 172 mg/dL (65-115); HDL Cholesterol 36 mg/dL (60-100); LDL Cholesterol Calculated 60 mg/dL (50-129); Magnesium 2.1 mg/dL (1.7-2.3); Osmolality Calculated 295 mOsm/kg (285-295); Potassium 3.7 mmol/L (3.5-5.1); Sodium 139 mmol/L (136-145); Total Bilirubin 0.2 mg/dL (0.15-1.2); Total Protein 6.9 g/dL (6.6-8.7); Triglycerides 101 mg/dL (0-150); VLDL Cholestrol Calculation 20 mg/dL (0-30)
[2022-02-17 07:22] LABS: Glucose Point of Care 392 mg/dL (70-110)
[2022-02-17] MEDS: budesonide 0.5 mg/2 mL Neb INHALATION ×2 (07:35→20:09)
[2022-02-17] MEDS: morphine ER (12 HR) 15 mg Tablet 30 MG PO ×2 (07:50→19:33)
[2022-02-17] MEDS: aspirin 81 mg EC Tablet PO (08:01)
[2022-02-17] MEDS: potassium chloride ER 20 mEq Tablet PO (08:01)
[2022-02-17] MEDS: FUROsemide 10 mg/mL SDV 4mL 40 MG IVP ×2 (08:02→18:00)
[2022-02-17] MEDS: metoprolol tartrate 25 mg Tablet PO ×2 (09:55→20:51)
[2022-02-17] MEDS: insulin glargine 100 units/1 mL 10 UNIT SUBCUT (09:55)
[2022-02-17 11:28] LABS: Troponin T (5th) Once 129 ng/L (0-15)
--- NOTE | 2022-02-17 11:59 | P.PN_ITS ---
Subjective Subjective: c/o some chest pains. He is now on 5 L of O2 Medications: Reviewed: Yes Vitals/I&O/Wt Last Vital Signs Temp 97.4 F L 02/17/22 05:15 Pulse 110 H 02/17/22 08:45 Resp 20 H 02/17/22 08:45 BP 124/72 02/17/22 08:45 Pulse Ox 95 02/17/22 08:45 O2 Del Method 02/17/22 07:37 O2 Flow Rate 35 02/17/22 07:37 FiO2 35 02/17/22 07:37 02/16/22 02/17/22 02/17/22 22:59 06:59 14:59 Intake Total 170 / 170 630 / 800 300 / 300 Output Total 2150 / 2900 200 / 3100 Balance -1980 / -2730 430 / -2300 300 / 300 Weight last 48 hrs Weight 177 lb 6.4 oz Weight 170 lb Physical Exam Narrative: GENERAL: Averagely built and ill appaering man HEENT: Extraocular movement intact. No pallor or icterus. NECK: JVD not appreciated CARDIOVASCULAR SYSTEM: S1-S2 regular. No murmur RESPIRATORY SYSTEM: Prolonged expiration and decreased BS at bases. No wheezes, ABDOMEN: Soft, nontender and nondistended. Normal bowel sounds present. EXTREMITIES: No cyanosis or edema. STEAM FLATTENER: Patient is alert oriented ?3. No focal neurological deficits. Urinary Catheter Management: Ray Latex: Cath Placed During This Visit: yes Reason for Continuing Indwelling Catheter: Accurate Measurement of Urinary Output in Critically Ill Patients Urinary Catheter Date of Insertion: 02/16/22 Urinary Catheter Time of Insertion: 02:40 Data : 02/17/22 03:20 02/17/22 03:20 Micro: Microbiology 02/16/22 00:25 Blood Culture - Preliminary Blood NEGATIVE TO DATE 02/16/22 00:15 Blood Culture - Preliminary Blood NEGATIVE TO DATE A&P Assessment and plan (1) Acute on chronic respiratory failure with hypoxemia: Improving (2) NSTEMI (non-ST elevated myocardial infarction): Risks and benefits were discussed with the patients. Possible complications including risk of heart attack stroke and , coronary perforation, dissection arrhythmia, cardiac tamponade in urgent CABG were discussed with the patient as well. Patient initially agreed for LHC but later declined to undergo the procedure -On ASA, statin and metoprolol. -will start on plavix -continue with medical manegement. (3) CHF exacerbation: Newly diagnosed cardiomyopathy with RWMA agree with diuresis -replace potassium and Magnesium as needed -transition to metoporlol succinate and possibly add entresto in morning based on BP and labs. (4) COPD (chronic obstructive pulmonary disease): (5) Lung mass: Recurrence of lung cancer (6) Pulmonary embolism on right: s/p 3 months of therapy for possible PE -none noted on recent CTA. -No Eliquis warranted on discharge (7) Diabetes: Attestations Medical Necessity Statement*: Needs hospital stay for CHF, NSTEMI Time Spent in Patient Care: Greater than 35 minutes Coding Level of Care Code Acute Manager Telemarketing for g Fwd Diagnoses Acute on chronic respiratory failure with hypoxemia J96.21 NSTEMI (non-ST elevated myocardial infarction) I21.4 CHF exacerbation I50.9 COPD (chronic obstructive pulmonary disease) J44.9 Lung mass R91.8 Pulmonary embolism on right I26.99 Diabetes E11.9
[2022-02-17] MEDS: morphine 4 mg/mL SDV 1 mL 1 MG IVP (12:06)
[2022-02-17 12:07] LABS: Glucose Point of Care 251 mg/dL (70-110)
--- NOTE | 2022-02-17 13:36 | PM.PN ---
Subjective Subjective: No acute events overnight. Patient is complaining of chest heaviness and back discomfort. States he never felt like this before. His breathing is a lot better. Has been transitioned to regular nasal cannula 5 L saturating 98%. Has remained hemodynamically stable and afebrile. Vitals/I&O/Wt Last Vital Signs Temp 97.4 F L 02/17/22 05:15 Pulse 78 02/17/22 13:34 Resp 18 02/17/22 13:25 BP 124/72 02/17/22 08:45 Pulse Ox 98 02/17/22 13:25 O2 Del Method 02/17/22 13:25 O2 Flow Rate 5 02/17/22 13:25 FiO2 35 02/17/22 07:37 02/16/22 02/17/22 02/17/22 22:59 06:59 14:59 Intake Total 170 / 170 630 / 800 300 / 300 Output Total 2150 / 2900 200 / 3100 Balance -1980 / -2730 430 / -2300 300 / 300 Weight last 48 hrs Weight 80.467 kg Weight 77.111 kg Physical Exam Narrative: General: In acute distress because of chest heaviness and back discomfort, AO x3, chronically ill-appearing, unable to get into a comfortable position HEENT: PERRLA, pupils bilaterally equal and reactive, pallors + Chest: Bilateral wheezing to auscultation, restricted air entry all lung acuña CVS: Tachycardic, heart rate 120s. Abdomen: Soft, nontender, no organomegaly, bowel sounds present Neuro: No focal deficits, no facial deformity, AO x3, power 5/5 in all limbs Urinary Catheter Management: Ray Latex: Cath Placed During This Visit: yes Reason for Continuing Indwelling Catheter: Accurate Measurement of Urinary Output in Critically Ill Patients Urinary Catheter Date of Insertion: 02/16/22 Urinary Catheter Time of Insertion: 02:40 Data : 02/17/22 03:20 02/17/22 03:20 Micro: Microbiology 02/16/22 00:25 Blood Culture - Preliminary Blood NEGATIVE TO DATE 02/16/22 00:15 Blood Culture - Preliminary Blood NEGATIVE TO DATE A&P Assessment and plan (1) NSTEMI (non-ST elevated myocardial infarction): Present on admission. Troponins elevated. Repeat troponin today morning labs. Cardiology recommendations appreciated. No plan for cardiac angiogram right now. While waiting for euvolemia. Continue with aspirin, statin. Full dose Lovenox 1 mg/kg body weight every 12 hourly. Echocardiogram results appreciated with an EF of 35%, global moderate hypokinesia with regional wall motion abnormality of anterior and apex, grade 1 diastolic dysfunction, increased LA size, trace MR. Appreciate A1c and lipid panel results. Start on metoprolol 25 mg twice daily. Will uptitrate as per blood pressures. Goal blood pressure less than 140/90 mmHg with mean over 65. (2) Acute on chronic respiratory failure with hypoxemia: Secondary to a combination of congestive heart failure and mild COPD exacerbation. Keep saturation over 90%. BiPAP as needed. For congestive heart failure: IV Lasix 40 mg twice daily. Strict input output charting. Daily weights. Target 2 L negative. Fluid restriction up to 1500 cc. For possible COPD exacerbation, DuoNebs every 6 hour, budesonide twice daily. Wean off Solu-Medrol 30 mg IV twice daily today. No signs of pneumonia currently. COVID-19 PCR and flu negative on admission. (3) COPD (chronic obstructive pulmonary disease): Scheduled DuoNeb and budesonide inhalation as noted above. Steroids as noted above Plan Diabetes mellitus: Blood sugars elevated. Most likely secondary to steroid use. We will start on Lantus 10 units every morning. Continue with lispro before meals and at bedtime. Carb consistent cardiac diet. History of lung cancer, status postresection several years ago, SAROJ on serial imaging and to few months ago where there is a suspicious pleural-based appearing lesion on the left side. Nature of this mass is not currently known. CT guided biopsy was deferred in favor of PET scan due to high risk of pneumothorax and his advanced COPD. Patient is planned to undergo a PET scan in mid January, however I am unable to find the results of this at this present time. Continue home doses of his pain medications including MS Contin 30 mg p.o. every 12 hours and hydrocodone APAP 7.5 325 3 times daily as needed. Analgesia: Tylenol, home dose of morphine ER 30 mg every 12 hourly. Glycemic control: Lantus 10 units, insulin sliding scale moderate dose protocol before meals and at bedtime Nutrition: Cardiac carb consistent diet CODE STATUS: DNR/DNI PUD prophylaxis: Protonix DVT prophylaxis: Full dose Lovenox will suffice for DVT prophylaxis Discharge planning: Back to care home once medically stable. Patient does not overall go back to [place]. Case management alerted. Continue with care at ICU level This documentation was created by [employer] sanitation worker hosing machinery software. Every effort was made to ensure accuracy of sanitation worker hosing machinery. Any obvious errors or omissions should be clarified with the author of the document. Attestations Medical Necessity Statement*: Requires further hospitalization for management of non-ST elevation DE, congestive heart failure Time Spent in Patient Care: Greater than 35 minutes Coding Level of Care Code Acute It Solutions Architect for Camila Ko Diagnoses NSTEMI (non-ST elevated myocardial infarction) I21.4 Acute on chronic respiratory failure with hypoxemia J96.21 COPD (chronic obstructive pulmonary disease) J44.9
[2022-02-17] MEDS: clopidogrel 300 mg Tablet PO (14:19)
--- NOTE | 2022-02-17 16:31 | PC.NURSE ---
Dr. Bradley spoke with patient about angiogram tomorrow, at this time patient is not wanting to proceed due to possible complications, Patient titrated off HHF to 4L nc per RT
[2022-02-17 17:34] LABS: Glucose Point of Care 246 mg/dL (70-110)
[2022-02-17] MEDS: atorvastatin 40 mg Tablet PO (20:49)
[2022-02-18] VITALS (29 sets, daily range): BP systolic 96–160; BP diastolic 58–100; PULSE 54–88; RESP 15–25; TEMP 36.6–36.7; O2SAT 90–98
[2022-02-18 00:21] LABS: Glucose Point of Care 451 mg/dL (70-110)
[2022-02-18] MEDS: morphine 4 mg/mL SDV 1 mL 1 MG IVP (00:24)
[2022-02-18] MEDS: enoxaparin 80 mg/0.8 mL Syringe SUBCUT (00:25)
[2022-02-18] MEDS: insulin lispro 100 unit/1 mL SUBCUT ×2 (00:26→18:01)
[2022-02-18] MEDS: levofloxacin-dextrose 5 % 750 MG/150 ML PREMIX 100 MG IV (00:26)
[2022-02-18] MEDS: pantoprazole 40 mg SDV IVP (01:55)
[2022-02-18] MEDS: ipratropium-albuterol 3 mL Neb INHALATION ×3 (02:55→20:50)
[2022-02-18 04:58] LABS: Hematocrit 37.2 % (42.0-52.0); Hemoglobin 11.5 g/dL (11.7-16.6); Lymphocytes # 0.6 10^3/uL (0.8-4.8); Lymphocytes % 6.1 %; Mean Corpuscular HGB Conc 30.9 g/dL (30.0-36.0); Mean Corpuscular Hemoglobin 26.9 pg (28.0-34.0); Mean Corpuscular Volume 87.1 fl (80-94); Mean Platelet Volume 10.5 fL (7.4-10.4); Monocytes # 0.7 10^3/uL (0.2-0.9); Monocytes % 6.7 %; Neutrophils # 8.48 10^3/uL (1.8-7.7); Neutrophils % 86.9 %; Nucleated Red Blood Cells % 0 %; Platelet Count 236 10^3/cmm (130-400); Red Blood Count 4.27 10^6/uL (4.1-5.3); Red Cell Distribution Width 12.8 % (12.1-15.1); White Blood Count 9.8 10^3/uL (4.0-10.0)
[2022-02-18 05:21] LABS: Alanine Aminotransferase 11 U/L (0-41); Albumin Level 3.8 g/dL (3.5-5.2); Alkaline Phosphatase 112 U/L (40-130); Anion Gap 13.2 (5-19); Aspartate Amino Transferase 10 U/L (0-40); Blood Urea Nitrogen 26 mg/dL (8-23); Calcium 9.8 mg/dL (8.5-10.5); Carbon Dioxide 37 mmol/L (22-29); Chloride 95 mmol/L (98-107); Globulin 3.4 g/dL (1.3-4.6); Glomerular Filtration Rate 95.6 mL/min (90-130); Glucose 166 mg/dL (65-115); Osmolality Calculated 301 mOsm/kg (285-295); Potassium 4.2 mmol/L (3.5-5.1); Sodium 141 mmol/L (136-145); Total Bilirubin 0.2 mg/dL (0.15-1.2); Total Protein 7.2 g/dL (6.6-8.7)
[2022-02-18 06:15] LABS: Glucose Point of Care 125 mg/dL (70-110)
[2022-02-18] MEDS: insulin glargine 100 units/1 mL 10 UNIT SUBCUT (06:16)
[2022-02-18] MEDS: budesonide 0.5 mg/2 mL Neb INHALATION ×2 (07:26→20:40)
[2022-02-18] MEDS: metoprolol tartrate 25 mg Tablet PO ×2 (08:27→20:13)
[2022-02-18] MEDS: FUROsemide 10 mg/mL SDV 4mL 40 MG IVP (08:27)
[2022-02-18] MEDS: aspirin 81 mg EC Tablet PO (08:27)
[2022-02-18] MEDS: clopidogrel 75 mg Tablet PO (08:27)
[2022-02-18] MEDS: potassium chloride ER 20 mEq Tablet PO (08:27)
[2022-02-18] MEDS: morphine ER (12 HR) 15 mg Tablet 30 MG PO ×2 (08:27→20:12)
--- NOTE | 2022-02-18 09:04 | P.PN_ITS ---
Subjective Subjective: Patient has finally decided to undergo C Medications: Reviewed: Yes Vitals/I&O/Wt Last Vital Signs Temp 98 F 02/18/22 04:00 Pulse 62 02/18/22 08:00 Resp 18 02/18/22 08:00 BP 160/80 02/18/22 08:00 Pulse Ox 94 02/18/22 08:00 O2 Del Method 02/18/22 07:25 O2 Flow Rate 3 02/18/22 07:25 FiO2 35 02/17/22 07:37 02/17/22 02/18/22 02/18/22 23:59 06:59 14:59 Intake Total Output Total Balance Weight last 48 hrs Weight 166 lb 6.4 oz Physical Exam Narrative: GENERAL: Averagely built and ill appaering man HEENT: Extraocular movement intact. No pallor or icterus. NECK: JVD not appreciated CARDIOVASCULAR SYSTEM: S1-S2 regular. No murmur RESPIRATORY SYSTEM: Prolonged expiration and decreased air entry. No wheezes, ABDOMEN: Soft, nontender and nondistended. Normal bowel sounds present. EXTREMITIES: No cyanosis or edema. VALLEZ FILTER OPERATOR: Patient is alert oriented ?3. No focal neurological deficits. Urinary Catheter Management: Ray Latex: Cath Placed During This Visit: yes Reason for Continuing Indwelling Catheter: Accurate Measurement of Urinary Output in Critically Ill Patients Urinary Catheter Date of Insertion: 02/16/22 Urinary Catheter Time of Insertion: 02:40 Data : 02/18/22 04:45 02/18/22 04:45 Micro: Microbiology 02/16/22 00:25 Blood Culture - Preliminary Blood SPECIMEN COLLECTED 02/16/22 00:15 Blood Culture - Preliminary Blood SPECIMEN COLLECTED Other data: Chest CTA IMPRESSION: 1. No pulmonary embolism. 2. No aortic dissection. 3. Thickening of the interstitial markings which may be secondary to edema or interstitial pneumonia. 4. Grossly stable 3.9 cm left lower lobe mass lesion TTE CONCLUSIONS ?The echo was limited to the subcostal view given severe COPD and ?previous thoracic surgery.? The ventricle is probably normal in ?size to upper limit of normal in size.? There is global ?hypokinesis to a moderate degree.? The anterior wall and apex ?may be slightly more hypokinetic.? A rough estimate of the ?ejection fraction would be 35%.? There is grade 1 diastolic ?dysfunction. ?Mildly increased left atrial size. ?Structurally normal mitral valve. Mitral valve not well ?visualized. Trace mitral valve regurgitation. ?The inferior vena cava does not quite collapse normally with ?respiration. ?There are no prior echocardiogram studies to compare. A&P Assessment and plan (1) Acute on chronic respiratory failure with hypoxemia: Improved, back to baseline; home O2 3 L (2) NSTEMI (non-ST elevated myocardial infarction): Risks and benefits were discussed with the patients. Possible complications including risk of heart attack stroke and , coronary perforation, dissection arrhythmia, cardiac tamponade in urgent CABG were discussed with the patient as well. Patient initially agreed for LHC -On ASA, statin and metoprolol. -will start on plavix Proceed with left heart cath later today. (3) CHF exacerbation: Newly diagnosed cardiomyopathy with RWMA agree with diuresis -replace potassium and Magnesium as needed -transition to metoporlol succinate and possibly add entresto in morning based on BP and labs. (4) COPD (chronic obstructive pulmonary disease): (5) Lung mass: Recurrence of lung cancer (6) Pulmonary embolism on right: s/p 3 months of therapy for possible PE -none noted on recent CTA. -No Eliquis warranted on discharge (7) Diabetes: Attestations Medical Necessity Statement*: Needs hospital stay for CHF, NSTEMI, COPD Time Spent in Patient Care: Greater than 35 minutes Coding Level of Care Code Acute Office Machine Embossograph Operator for Camila Ko Diagnoses Acute on chronic respiratory failure with hypoxemia J96.21 NSTEMI (non-ST elevated myocardial infarction) I21.4 CHF exacerbation I50.9 COPD (chronic obstructive pulmonary disease) J44.9 Lung mass R91.8 Pulmonary embolism on right I26.99 Diabetes E11.9
[2022-02-18] MEDS: losartan 50 mg Tablet 25 MG PO (09:34)
--- NOTE | 2022-02-18 12:11 | XACV_ITS ---
Exam Room: [facility] Ht: 180 cm Wt: 77 kg BSA: 1.97 m2 Gender: Male : 1950 Exam Priority: Routine Procedure(s): Procedure Description: Diagnostic procedure Procedure Description: PCI procedure Procedure Description: Left Heart Catheterization Procedure Description: Drug Eluting Coronary Stent Procedure Description: Coronary Angiography Diagnostic Cath Status: Urgent Diagnostic Findings * Moses Cardoza is a 71 year old male with past medical history of lung cancer s/p right lower lobectomy in 09/2014 for localized squamous cell carcinoma and recent recurrence, advanced COPD, chronic hypoxemic respiratory failure, small PE in November 2021. He was brought from group home with worsening dyspnea over the past 3-4 days. Chest x-ray shows pulmonary congestion. EKG shows sinus rhythm, possibly recent septal infarct and ST depression and T wave inversion in I, aVL, V4-V6. He was diagnosed with NTSE-ACS. Troponin T increased from 111-> 163. Echo with global hypokinesis to a moderate degree. The anterior wall and apex slightly more hypokinetic. LV ejection fraction grossly estimated to be be 35%. . * Angiography shows a left coronary dominant system. * Normal left main with no disease. * Small non dominant right coronary artery with no disease. * Dominant circumflex with minor luminal irregularities. * Proximal left anterior descending with eccentric 80% stenosis. ROCÍO-3 flow. * Case was discussed and images were reviewed with Dr. Cloud. He took over the case at this time. PCI Status: Urgent Interventional Findings * Proximal LAD was primarily stented using a 2.75 x 15 mm stent. Good angiographic result. Conclusions 1. Cardiac Catheterization study revealed severe single vessel disease. 2. Proximal left anterior descending with eccentric 80% stenosis. It was primarily stented using 2.75 x 15 mm stent. Recommendations * Return to inpatient for close monitoring and routine cath care. * Statin and aspirin 81mg lifelong, if tolerated. * Continue Plavix 75mg p.o. daily for at least one year. Pressures Phase:Rest AO : 69 / 48 ( 59 ) @ 12:48:00 PM 75 / 53 ( 65 ) @ 12:48:00 PM 107 / 47 ( 70 ) @ 12:52:00 PM 107 / 41 ( 68 ) @ 12:52:00 PM 96 / 54 ( 71 ) @ 12:57:00 PM 82 / 50 ( 65 ) @ 1:05:00 PM LV : 121 / -3 / 13 @ 12:52:00 PM 120 / -4 / 13 @ 12:52:00 PM Hemodynamic Findings LVEDP is 13 mmHg. Valves Phase:DefaultPhase AV : 13.0 @ 1:20:02 PM AV Mean Gradient: 10.0 @ 1:20:02 PM Clinical Evaluation EBL: 5mL-10mL Procedural Details Procedure Consent Obtained. Admit Source: In Patient. Pre-Procedure Time Out. Identified patient by full name and date of as verbalized by the patient/guarantor. Does the consent match the physician's order: Yes. Accurate & Complete Informed Consent: Yes. Inpatient/Outpatient History & Physical on Chart: Yes. If H&P is completed, is and addenduem needed: N/A; If yes, is the addendum complete: N/A. Visualize and Verify Site with Patient/Guarantor: N/A. Relevant Radiology Images available: N/A. Pre-op teaching completed and patient verbalized understanding. The risks, benefits, and alternatives of sedation and/or procedure were discussed by physician. The patient agrees to continue. Procedure started. [facility] Clinical Fraility Score: 6: Moderately Frail. Botany Teacher Indications: Worsening Angina. Chest Pain Symptom Assessment: Typical Angina Symptoms. Correct patient, site and procedure confirmed by cath team. Current diagnosis: NSTEMI. PERRLA. Strong, equal hand product sales representative bilaterally. Lungs clear x 5 lobes. IV Site on Arrival: 20 gauge in the left wrist. IV Fluids: 0.9% NaCl at KVO. 0 mL infused prior to medical laboratory technologist. Pre Procedural Pulses: right radial was 2+. Pre Procedural Pulses: bilateral dorsalis pedis was 2+. Oxygen started at 3liters/min via nasal canula. right groin was prepped with chloroprep then draped in the usual sterile fashion. right radial was prepped with chloroprep then draped in the usual sterile fashion. Baseline sample Acquired. HR: 65 BPM. Physician notified. Physician arrived. Physician scrubbed in. Immediate Pre-Procedure Time Out. Correct Patient: Yes; Correct Procedure: Yes; Correct Site: Yes; Correct Patient Position: Yes; Correct Supplies: Yes; Dried Flammable Prep: Yes; Blood Products Available: N/A;. Lidocaine 1% infiltrated to the right radial. Arterial access obtained. A 5 niuean TIG catheter in over wire. Multiple views taken of left coronary artery. Catheter redirected to the RCA. Multiple views taken of right coronary artery. EDP Sample taken: LV 121/-4,13; HR: 71 BPM; SpO2: 94%. Pullback taken: LV 120/-5,13; AO 107/47(70); Mean: 10mmHg, Peak to Peak: 13mmHg, SEP: 21sec/min; HR: 72 BPM; SpO2: 93%. Catheter removed over the exchange wire. Dr Cloud reviewed cine films. Dr. Cloud scrubbed in to perform intervention. PCI Indication: NSTE. 6 niuean XB 3 guide catheter was inserted over the wire. [place] guidewire was advanced through the guide catheter to lesion in the prox LAD. Stent inserted to lesion in the prox LAD. Inflation Number : 1 Yoly Dwyer MAUREEN 2.75X15 JIHAN -Lot Number# [id number] Exp 05/17/2024 was prepped and advanced across the Prox LAD. The stent was deployed at 15 KVNG for 0:30 seconds. Results checked. Stent balloon and wire out. Guide catheter out. A TR Band was successful obtaining hemostatsis at the Right Radial artery insertion site. Post Procedure: Pulses reassessed and unchanged. PERRLA. Strong, equal hand product sales representative bilaterally. No VTE prophylaxis required. Medication's Wasted: Lidocaine 1% = 2 mL. Medication's Wasted: Nitro = 49.8 mg. Medication's Wasted: Heparin = 1000 U. Medication's Wasted: Other = Fentanyl 50mcg. Total IV fluids: 60 mL. Post-op diagnosis: Obstructive CAD. Complications: none. Estimated blood loss: 5mL-10mL. Responsiveness - Normal response to verbal stimuli; alert and oriented, PERRLA. Airway - Unaffected, no intervention required; spontaneous ventilation. Circulation: W/N/L, pulses unchanged. Nausea/Vomiting: No. Procedure completed. Patient transferred by bed to ICU. Vital chart was stopped. Access Site Site: Right Radial artery Sheath Size: 6 Fr Hemostasis Method: TR Band Hemostasis Success: Successful Procedure Medications Start: 12:42 PM Stop: 12:42 PM Medication: Versed Amount: 1 mg Route: I.V. Start: 12:42 PM Stop: 12:42 PM Medication: Fentanyl Amount: 50 mcg Route: I.V. Start: 12:43 PM Stop: 12:43 PM Medication: Nitrogylcerin Amount: 200 mcg Route: I.A. Start: 12:44 PM Stop: 12:44 PM Medication: Heparin Amount: 5000 units Route: I.V. Start: 12:51 PM Stop: 12:51 PM Medication: Versed Amount: 1 mg Route: I.V. Start: 12:56 PM Stop: 12:56 PM Medication: Fentanyl Amount: 25 mcg Route: I.V. I, the attending physician, have reviewed and verified all procedure medications. Yes, all medications given per verbal order History/Risk Factors Hypertension: No Dyslipidemia: No Peripheral Arterial Disease (PAD): No Myocardial Infarction (CT): No Obesity: No Renal Disease: No Tobacco Use: Former Prior Interventions PCI: No CABG: No Valve Surgery: No Report Signatures Diagnostic Workflow Finalized by Rafaela Bradley MD on 03/01/2022 11:49 AM Interventional Workflow Finalized by Dr. Hoang Cloud MD on 02/18/2022 01:27 PM
[2022-02-18 12:31] LABS: Glucose Point of Care 286 mg/dL (70-110)
--- NOTE | 2022-02-18 12:36 | PC.NURSE ---
off unit with cathead operator at this time
--- NOTE | 2022-02-18 13:05 | W.PM.OPSUD ---
Surgery/Procedure H&P Update DATE OF PROCEDURE: February 18, 2022 DATE H&P PERFORMED: 02/17/22 H&P UPDATE INFORMATION: I have reviewed H&P completed within last 30 days, I have examined patient prior to procedure and No changes to prior documentation PREOP DIAGNOSIS: NSTEMI PRIMARY INDICATION FOR PROCEDURE: NSTEMI PLANNED PROCEDURE: Left heart cathetarization PATIENT REASSESSED PRIOR TO SEDATION, WITH NO CHANGE NOTED: Yes PHYSICAL EXAM: alert, oriented x 3, clear to auscultation bilaterally (decraeased air entry) and regular rate & rhythm AIRWAY EVAL/ANESTHESIA PLAN: ASA IV, Risks, benefits & alternatives of sedation and/or procedure discussed and Patient agrees to continue as planned
--- NOTE | 2022-02-18 13:34 | P.PN_ITS ---
Subjective Subjective: No acute events overnight. Patient states he is feeling a lot better. Back to baseline oxygen supplementation. Blood pressure slightly elevated. Patient underwent cardiac angiogram and underwent PCI to LAD today. Medications: Reviewed: Yes Vitals/I&O/Wt Last Vital Signs Temp 98 F 02/18/22 04:00 Pulse 62 02/18/22 12:00 Resp 17 02/18/22 12:00 BP 160/90 02/18/22 12:00 Pulse Ox 90 02/18/22 12:00 O2 Del Method 02/18/22 07:25 O2 Flow Rate 3 02/18/22 07:25 FiO2 35 02/17/22 07:37 02/17/22 02/18/22 02/18/22 23:59 06:59 14:59 Intake Total Output Total Balance Weight last 48 hrs Weight 75.478 kg Physical Exam Narrative: General: In acute distress because of chest heaviness and back discomfort, AO x3, chronically ill-appearing, unable to get into a comfortable position HEENT: PERRLA, pupils bilaterally equal and reactive, pallors + Chest: Bilateral wheezing to auscultation, restricted air entry all lung acuña CVS: Tachycardic, heart rate 120s. Abdomen: Soft, nontender, no organomegaly, bowel sounds present Neuro: No focal deficits, no facial deformity, AO x3, power 5/5 in all limbs Urinary Catheter Management: Ray Latex: Cath Placed During This Visit: yes Reason for Continuing Indwelling Catheter: Accurate Measurement of Urinary Output in Critically Ill Patients Urinary Catheter Date of Insertion: 02/16/22 Urinary Catheter Time of Insertion: 02:40 Data : 02/18/22 04:45 02/18/22 04:45 A&P Assessment and plan (1) NSTEMI (non-ST elevated myocardial infarction): Present on admission. Troponins elevated. Repeat troponin today morning labs. Cardiology recommendations appreciated. No plan for cardiac angiogram right now. While waiting for euvolemia. Continue with aspirin, statin. Full dose Lovenox 1 mg/kg body weight every 12 hourly. Echocardiogram results appreciated with an EF of 35%, global moderate hypokinesia with regional wall motion abnormality of anterior and apex, grade 1 diastolic dysfunction, increased LA size, trace MR. Appreciate A1c and lipid panel results. Start on metoprolol 25 mg twice daily. Will uptitrate as per blood pressures. Goal blood pressure less than 140/90 mmHg with mean over 65. (2) Acute on chronic respiratory failure with hypoxemia: Secondary to a combination of congestive heart failure and mild COPD exacerbation. Keep saturation over 90%. BiPAP as needed. For congestive heart failure: IV Lasix 40 mg twice daily. Strict input output charting. Daily weights. Target 2 L negative. Fluid restriction up to 1500 cc. For possible COPD exacerbation, DuoNebs every 6 hour, budesonide twice daily. Wean off Solu-Medrol 30 mg IV twice daily today. No signs of pneumonia currently. COVID-19 PCR and flu negative on admission. (3) COPD (chronic obstructive pulmonary disease): Scheduled DuoNeb and budesonide inhalation as noted above. Steroids as noted above Plan Diabetes mellitus: Blood sugars elevated. Most likely secondary to steroid use. We will start on Lantus 10 units every morning. Continue with lispro before meals and at bedtime. Carb consistent cardiac diet. History of lung cancer, status postresection several years ago, SAROJ on serial imaging and to few months ago where there is a suspicious pleural-based appearing lesion on the left side. Nature of this mass is not currently known. CT guided biopsy was deferred in favor of PET scan due to high risk of pneumothorax and his advanced COPD. Patient is planned to undergo a PET scan in mid January, however I am unable to find the results of this at this present time. Continue home doses of his pain medications including MS Contin 30 mg p.o. every 12 hours and hydrocodone APAP 7.5 325 3 times daily as needed. Analgesia: Tylenol, home dose of morphine ER 30 mg every 12 hourly. Glycemic control: Lantus 10 units, insulin sliding scale moderate dose protocol before meals and at bedtime Nutrition: Cardiac carb consistent diet CODE STATUS: DNR/DNI PUD prophylaxis: Protonix DVT prophylaxis: Full dose Lovenox will suffice for DVT prophylaxis Discharge planning: Back to intermediate once medically stable. Patient does not overall go back to [facility]. Case management alerted. Continue with care at ICU level Plan for the day: Continue with aspirin, statin. Hold off on any further full dose Lovenox. Switch to prophylactic dose. Continue with metoprolol. Start on losartan 25 mg daily. Will uptitrate as per blood pressure with goal of less than 140/90 mmHg. Wean off Solu-Medrol 30 mg IV daily. Stop IV Lasix. Switch to oral Lasix 40 mg daily from every morning tomorrow. This documentation was created by [employer] belting and webbing inspector software. Every effort was made to ensure accuracy of belting and webbing inspector. Any obvious errors or omissions should be clarified with the author of the document. Attestations Medical Necessity Statement*: Requires further hospitalization for management of non-ST elevation NC, post PCI, congestive heart failure in setting of COPD Time Spent in Patient Care: Greater than 35 minutes Coding Level of Care Code Acute Pulp Mixer for Camila Ko Diagnoses NSTEMI (non-ST elevated myocardial infarction) I21.4 Acute on chronic respiratory failure with hypoxemia J96.21 COPD (chronic obstructive pulmonary disease) J44.9
--- NOTE | 2022-02-18 13:41 | PC.NURSE ---
back from catheter finisher and inspector
[2022-02-18 16:51] LABS: Glucose Point of Care 345 mg/dL (70-110)
[2022-02-18 20:11] LABS: Glucose Point of Care 299 mg/dL (70-110)
[2022-02-18] MEDS: atorvastatin 40 mg Tablet PO (20:13)
[2022-02-18] MEDS: sodium chloride 0.9% 1,000 ML 125 ML IV (20:18)
[2022-02-19] VITALS (30 sets, daily range): BP systolic 87–163; BP diastolic 49–99; PULSE 54–87; RESP 15–22; TEMP 36.4–36.6; O2SAT 79–99
[2022-02-19 01:05] LABS: Glucose Point of Care 228 mg/dL (70-110)
[2022-02-19] MEDS: morphine 4 mg/mL SDV 1 mL 1 MG IVP ×2 (01:13→17:10)
[2022-02-19] MEDS: levofloxacin-dextrose 5 % 750 MG/150 ML PREMIX 100 MG IV (01:13)
[2022-02-19] MEDS: insulin lispro 100 unit/1 mL SUBCUT ×4 (01:14→17:11)
[2022-02-19 03:14] LABS: Eosinophils # 0.1 10^3/uL (0.0-0.8); Eosinophils % 0.9 %; Hemoglobin 10.4 g/dL (11.7-16.6); Lymphocytes % 14.2 %; Mean Corpuscular HGB Conc 29.7 g/dL (30.0-36.0); Mean Corpuscular Hemoglobin 26.1 pg (28.0-34.0); Mean Corpuscular Volume 87.9 fl (80-94); Mean Platelet Volume 10.6 fL (7.4-10.4); Monocytes # 0.5 10^3/uL (0.2-0.9); Monocytes % 6.9 %; Neutrophils % 77.7 %; Nucleated Red Blood Cells % 0 %; Platelet Count 210 10^3/cmm (130-400); Red Blood Count 3.98 10^6/uL (4.1-5.3); Red Cell Distribution Width 12.8 % (12.1-15.1); White Blood Count 6.8 10^3/uL (4.0-10.0)
[2022-02-19] MEDS: ipratropium-albuterol 3 mL Neb INHALATION ×4 (03:33→21:12)
[2022-02-19 03:44] LABS: Alanine Aminotransferase 9 U/L (0-41); Albumin Level 2.9 g/dL (3.5-5.2); Alkaline Phosphatase 91 U/L (40-130); Anion Gap 7.9 (5-19); Aspartate Amino Transferase 8 U/L (0-40); Blood Urea Nitrogen 28 mg/dL (8-23); Carbon Dioxide 33 mmol/L (22-29); Chloride 99 mmol/L (98-107); Globulin 3.1 g/dL (1.3-4.6); Glomerular Filtration Rate 111.5 mL/min (90-130); Glucose 216 mg/dL (65-115); Osmolality Calculated 294 mOsm/kg (285-295); Potassium 3.9 mmol/L (3.5-5.1); Sodium 136 mmol/L (136-145); Total Bilirubin 0.2 mg/dL (0.15-1.2)
[2022-02-19] MEDS: sodium chloride 0.9% 1,000 ML 125 ML IV (04:21)
[2022-02-19] MEDS: pantoprazole 40 mg SDV IVP (04:21)
[2022-02-19 06:15] LABS: Glucose Point of Care 178 mg/dL (70-110)
[2022-02-19] MEDS: enoxaparin 40 mg/0.4 mL Syringe SUBCUT (06:16)
[2022-02-19] MEDS: insulin glargine 100 units/1 mL 10 UNIT SUBCUT (06:19)
[2022-02-19 07:19] LABS: Glucose Point of Care 145 mg/dL (70-110)
[2022-02-19] MEDS: budesonide 0.5 mg/2 mL Neb INHALATION ×2 (08:10→21:12)
[2022-02-19] MEDS: morphine ER (12 HR) 15 mg Tablet 30 MG PO (08:44)
[2022-02-19] MEDS: FUROsemide 40 mg Tablet PO (08:44)
[2022-02-19] MEDS: aspirin 81 mg EC Tablet PO (08:53)
[2022-02-19] MEDS: clopidogrel 75 mg Tablet PO (08:53)
[2022-02-19] MEDS: losartan 50 mg Tablet 25 MG PO (08:53)
[2022-02-19] MEDS: potassium chloride ER 20 mEq Tablet PO (08:54)
[2022-02-19] MEDS: metoprolol succinate ER (24 HR) 50 mg Tablet PO (08:57)
--- NOTE | 2022-02-19 09:07 | PC.SOCIAL ---
Imm updated Imm updated with patient at bedside. Copy of page 2 provided. Patient verbalized understanding. Copy in chart initialed, dated and timed.
--- NOTE | 2022-02-19 10:43 | PM.PN ---
Subjective Subjective: He complains of heart burn and gas. No events on telemetry s/p Px LAD JIHAN yesterday Medications: Reviewed: Yes Vitals/I&O/Wt Last Vital Signs Temp 98 F 02/19/22 04:00 Pulse 62 02/19/22 08:11 Resp 16 02/19/22 08:11 BP 146/72 02/19/22 08:53 Pulse Ox 97 02/19/22 08:11 O2 Del Method 02/19/22 08:11 O2 Flow Rate 3 02/19/22 08:11 FiO2 35 02/18/22 22:00 02/18/22 02/19/22 02/19/22 22:59 06:59 14:59 Intake Total 400 / 400 1150 / 1550 160 / 160 Output Total 550 / 550 330 / 330 Balance 400 / 400 600 / 1000 -170 / -170 Weight last 48 hrs Weight 166 lb Weight 166 lb 6.4 oz Physical Exam Narrative: GENERAL: Averagely built and ill appaering man HEENT: Extraocular movement intact. No pallor or icterus. NECK: JVD not appreciated CARDIOVASCULAR SYSTEM: S1-S2 regular. No murmur RESPIRATORY SYSTEM: Prolonged expiration and decreased air entry. No wheezes, ABDOMEN: Soft, nontender and nondistended. Normal bowel sounds present. EXTREMITIES: No cyanosis or edema. Right wrist with no significant bruising or hematoma NURSING TEACHER: Patient is alert oriented ?3. No focal neurological deficits. Urinary Catheter Management: Ray Latex: Cath Placed During This Visit: yes Reason for Continuing Indwelling Catheter: Accurate Measurement of Urinary Output in Critically Ill Patients Urinary Catheter Date of Insertion: 02/16/22 Urinary Catheter Time of Insertion: 02:40 Data : 02/19/22 02:28 02/19/22 02:28 Micro: Microbiology 02/16/22 13:50 MRSA Culture - Final Nose A&P Assessment and plan (1) Acute on chronic respiratory failure with hypoxemia: Improved, back to baseline; home O2 3 L (2) NSTEMI (non-ST elevated myocardial infarction): s/p px LAD JIHAN, left dominant circulation on C -On ASA, plavix, statin and metoprolol. (3) CHF exacerbation: Newly diagnosed cardiomyopathy with RWMA Ischemic cardiomyopathy -transition to metoporlol succinate and continue losartan and lasix 40 mg PO daily (4) COPD (chronic obstructive pulmonary disease): (5) Lung mass: Recurrence of lung cancer (6) Pulmonary embolism on right: s/p 3 months of therapy for possible PE -none noted on recent CTA. -No Eliquis warranted on discharge (7) Diabetes: Attestations Medical Necessity Statement*: stable to be discharged from cardiac stand point Coding Level of Care Code Acute Gas Distribution Supervisor for g Fwd Diagnoses Acute on chronic respiratory failure with hypoxemia J96.21 NSTEMI (non-ST elevated myocardial infarction) I21.4 CHF exacerbation I50.9 COPD (chronic obstructive pulmonary disease) J44.9 Lung mass R91.8 Pulmonary embolism on right I26.99 Diabetes E11.9
[2022-02-19 10:53] LABS: Glucose Point of Care 261 mg/dL (70-110)
--- NOTE | 2022-02-19 12:19 | PC.CHAP ---
Pastoral Care Encounter/Spiritual Assessment Type of Contact [] Declined single corner cutter visit [] Patient/Family/Request visit [] Outpatient visit [] Follow-up visit [] Physician referral [] Code/Alert [x] Routine visit [] Staff referral [] Actively dying [] Patient sleeping [] Family support [] [] Out of room [] Palliative care [] [] Receiving care in room [] Pre-surgical visit [] Trauma [] Long length of stay [x] ICU visit [] Other: Relational/Emotional Strength [] Patient feels connected with others/family/visitors/staff [] Distress [] Loneliness/isolation [] Abandonment Spirituality of Patient [] Person of Rae [] Attends Caodaism of their Rae [] Believes in Prayer [] Reads Bible or Holiness materials [] There are Spiritual issues to be addressed [employer] Interventions [x] Prayer [] Active listening [] Non-anxious presence [] Spiritual/emotional support [] Crisis/trauma care [] Spiritual counseling [] Bereavement support [] Provided bereavement packet [] Provided Bible/devotional materials [] Provided toy/stuffed animal, coloring book to patient or family member [] Provided Communion [] Anointing/[place] [] Salvation [] Completed spiritual assessment [] Other: Impact on Illness or Injury [] Angry [] Fearful [] Anxious [] Often cries [] Exhaustion [] Unable to work [] Unable to attend bahai [] Unable to walk/stand [] Unable to read [] Unable to drive [] Unable to eat/drink [] Unable to sleep [] Unable to be with family [] Patient intubated [] Other: Summary Time spent with patient
--- NOTE | 2022-02-19 12:30 | PM.PN ---
Subjective Subjective: Seen this AM. NO acute events overnight Pt feels better Would like to go to a different [facility]iary and not [facility]. Vitals/I&O/Wt Last Vital Signs Temp 98 F 02/19/22 04:00 Pulse 68 02/19/22 10:00 Resp 20 H 02/19/22 10:00 BP 131/99 02/19/22 10:00 Pulse Ox 98 02/19/22 10:00 O2 Del Method 02/19/22 08:11 O2 Flow Rate 3 02/19/22 08:11 FiO2 35 02/18/22 22:00 02/18/22 02/19/22 02/19/22 22:59 06:59 14:59 Intake Total 400 / 400 1150 / 1550 160 / 160 Output Total 550 / 550 330 / 330 Balance 400 / 400 600 / 1000 -170 / -170 Weight last 48 hrs Weight 75.296 kg Weight 75.478 kg Physical Exam Narrative: General: In acute distress because of chest heaviness and back discomfort, AO x3, chronically ill-appearing, frail appearing HEENT: NC/AT, EOMI Chest: Clear to ausculation b/l, no wheezes or ronchi, diminished at bases and especially at left bases CVS: normal S1, S2, no gross murmers, RRR Abdomen: Soft, nontender, bowel sounds present, Neuro: No focal deficits, no facial deformity, AO x3 Urinary Catheter Management: Ray Latex: Cath Placed During This Visit: yes Reason for Continuing Indwelling Catheter: Accurate Measurement of Urinary Output in Critically Ill Patients Urinary Catheter Date of Insertion: 02/16/22 Urinary Catheter Time of Insertion: 02:40 Data : 02/19/22 02:28 02/19/22 02:28 Micro: Microbiology 02/16/22 13:50 MRSA Culture - Final Nose A&P Assessment and plan (1) NSTEMI (non-ST elevated myocardial infarction): (2) Acute on chronic respiratory failure with hypoxemia: (3) COPD (chronic obstructive pulmonary disease): Plan #NSTEMI present on admission #CAD s/p PCI JIHAN LAD #Systolic congestive HF #COPD exacerbation #DM #Lung cancer s/p resection #Recent PE, completed 3 months of eliquis - Echocardiogram results appreciated with an EF of 35%, global moderate hypokinesia with regional wall motion abnormality of anterior and apex, grade 1 diastolic dysfunction, increased LA size, trace MR. - S/p [facility] with 1 JIHAN to LAD - Continue aspirin, plavix, statin, lasix 40 daily, losartan 25 daily. - Levaquin daily, solumedrol 30 daily. Will taper. No signs of pneumonia currently. COVID-19 PCR and flu negative on admission. - Continue oxygen NC - Duoneb q6H PRN - PT/OT - Plan to send to [place] once placement setup - Continue lantus 10 units daily plus SSI - Suspicious pleural based lesion on left side. Nature of mass unknown. CT guided biopsy was deferred in favor of PET scan due to high risk of pneumothorax and his advanced COPD. Patient is planned to undergo a PET scan in mid January, however I am unable to find the results of this at this present time. - Continue home doses of his pain medications including MS Contin 30 mg p.o. every 12 hours and hydrocodone APAP 7.5 325 3 times daily as needed. Analgesia: Tylenol, home dose of morphine ER 30 mg every 12 hourly. Glycemic control: Lantus 10 units, insulin sliding scale moderate dose protocol before meals and at bedtime Nutrition: Cardiac carb consistent diet CODE STATUS: DNR/DNI PUD prophylaxis: Protonix DVT prophylaxis: Lovenox 40 daily Discharge planning: Back to penitentiary once placement setup. pt may transfer to [facility] floor. Attestations Medical Necessity Statement*: Plan for DC to [facility] in next 24 -48 hours. Placement pending. PT/OT pending. Coding Level of Care Code Acute Airplane Captain for [facility] Fwd Diagnoses NSTEMI (non-ST elevated myocardial infarction) I21.4 Acute on chronic respiratory failure with hypoxemia J96.21 COPD (chronic obstructive pulmonary disease) J44.9
[2022-02-19 12:50] LABS: Glucose Point of Care 407 mg/dL (70-110)
[2022-02-19 16:39] LABS: Glucose Point of Care 329 mg/dL (70-110)
--- NOTE | 2022-02-19 16:49 | PC.NURSE ---
Patient has bed raised to highest possible position in order to watch tv. Patient as advised that he was a fall risk and the safety risk that comes with having the bed in this position. Patient refused to allow nursing to lower level of the bed.
[2022-02-19] MEDS: atorvastatin 40 mg Tablet PO (20:34)
[2022-02-19] MEDS: morphine ER (12 HR) 30 mg tablet PO (20:34)
[2022-02-20] VITALS (11 sets, daily range): BP systolic 102–150; BP diastolic 62–80; PULSE 60–82; RESP 14–30; TEMP 36.4–36.8; O2SAT 94–100
[2022-02-20] MEDS: levofloxacin-dextrose 5 % 750 MG/150 ML PREMIX 100 MG IV (00:25)
[2022-02-20 00:29] LABS: Glucose Point of Care 274 mg/dL (70-110)
[2022-02-20] MEDS: insulin lispro 100 unit/1 mL SUBCUT ×3 (00:37→12:27)
[2022-02-20] MEDS: ipratropium-albuterol 3 mL Neb INHALATION ×3 (01:10→14:16)
[2022-02-20] MEDS: pantoprazole 40 mg SDV IVP (01:58)
[2022-02-20] MEDS: morphine 4 mg/mL SDV 1 mL 1 MG IVP ×2 (02:42→12:27)
[2022-02-20 05:19] LABS: Anion Gap 12.1 (5-19); Blood Urea Nitrogen 22 mg/dL (8-23); Calcium 9.9 mg/dL (8.5-10.5); Carbon Dioxide 33 mmol/L (22-29); Chloride 96 mmol/L (98-107); Glomerular Filtration Rate 111.5 mL/min (90-130); Glucose 248 mg/dL (65-115); Osmolality Calculated 296 mOsm/kg (285-295); Potassium 4.1 mmol/L (3.5-5.1); Sodium 137 mmol/L (136-145)
[2022-02-20] MEDS: insulin glargine 100 units/1 mL 10 UNIT SUBCUT (06:01)
[2022-02-20] MEDS: enoxaparin 40 mg/0.4 mL Syringe SUBCUT (06:01)
[2022-02-20] MEDS: budesonide 0.5 mg/2 mL Neb INHALATION (08:13)
[2022-02-20] MEDS: clopidogrel 75 mg Tablet PO (08:15)
[2022-02-20] MEDS: potassium chloride ER 20 mEq Tablet PO (08:15)
[2022-02-20] MEDS: morphine ER (12 HR) 30 mg tablet PO (08:15)
[2022-02-20] MEDS: losartan 50 mg Tablet 25 MG PO (08:15)
[2022-02-20] MEDS: FUROsemide 40 mg Tablet PO (08:15)
[2022-02-20] MEDS: metoprolol succinate ER (24 HR) 50 mg Tablet PO (08:16)
[2022-02-20] MEDS: aspirin 81 mg EC Tablet PO (08:16)
[2022-02-20 08:31] LABS: Glucose Point of Care 315 mg/dL (70-110)
--- NOTE | 2022-02-20 10:01 | P.PN_ITS ---
Subjective Subjective: He complains of occasional heart burn and gas. No events on telemetry s/p Px LAD JIHAN day before yesterday Medications: Reviewed: Yes Vitals/I&O/Wt Last Vital Signs Temp 98 F 02/20/22 07:39 Pulse 71 02/20/22 08:00 Resp 30 H 02/20/22 08:15 BP 149/73 02/20/22 07:39 Pulse Ox 99 02/20/22 08:15 O2 Del Method 02/20/22 08:00 O2 Flow Rate 2 02/20/22 08:00 FiO2 35 02/19/22 20:00 02/19/22 02/20/22 02/20/22 22:59 06:59 14:59 Intake Total 877 / 1437 390 / 1827 436 / 436 Output Total 1400 / 1730 1400 / 3130 Balance -523 / -293 -1010 / -1303 436 / 436 Weight last 48 hrs Weight 173 lb 5 oz Weight 166 lb Physical Exam Narrative: GENERAL: Averagely built and ill appaering man HEENT: Extraocular movement intact. No pallor or icterus. NECK: JVD not appreciated CARDIOVASCULAR SYSTEM: S1-S2 regular. No murmur RESPIRATORY SYSTEM: Prolonged expiration and decreased air entry. No wheezes, ABDOMEN: Soft, nontender and nondistended. Normal bowel sounds present. EXTREMITIES: No cyanosis or edema. Right wrist with no significant bruising or hematoma SANITATION LEAD: Patient is alert oriented ?3. No focal neurological deficits. Const: COMMON NORMALS: alert Resp: COMMON NORMALS: clear to auscultation bilaterally (decraeased air entry) AUSCULTATION: clear to auscultation bilaterally (decraeased air entry) Neuro: SENSORIUM/ORIENTATION: Yes alert Urinary Catheter Management: Ray Latex: Cath Placed During This Visit: yes Reason for Continuing Indwelling Catheter: Accurate Measurement of Urinary Ou tput in Critically Ill Patients Urinary Catheter Date of Insertion: 02/16/22 Urinary Catheter Time of Insertion: 02:40 Data : 02/19/22 02:28 02/20/22 04:08 A&P Assessment and plan (1) Acute on chronic respiratory failure with hypoxemia: Improved, back to baseline; home O2 3 L (2) NSTEMI (non-ST elevated myocardial infarction): s/p px LAD JIHAN, left dominant circulation on LHC -On ASA, plavix, statin and metoprolol. Follow up with Chika Angeles in [facility] in 1 week and f/u with me in 2 months I will sign off. Patient awaiting placement (3) CHF exacerbation: Newly diagnosed cardiomyopathy with RWMA Ischemic cardiomyopathy -continue metoprolol succinate, losartan and lasix 40 mg PO daily (4) COPD (chronic obstructive pulmonary disease): (5) Lung mass: Recurrence of lung cancer (6) Pulmonary embolism on right: s/p 3 months of therapy for possible PE -none noted on recent CTA. -No Eliquis warranted on discharge (7) Diabetes: Attestations Medical Necessity Statement*: As per primary team Coding Level of Care Code Acute Global Regulatory Lead for g Fwd Diagnoses Acute on chronic respiratory failure with hypoxemia J96.21 NSTEMI (non-ST elevated myocardial infarction) I21.4 CHF exacerbation I50.9 COPD (chronic obstructive pulmonary disease) J44.9 Lung mass R91.8 Pulmonary embolism on right I26.99 Diabetes E11.9
[2022-02-20] MEDS: predniSONE 20 mg Tablet PO (10:42)
[2022-02-20 11:19] LABS: SARS Covid-2 Antigen negative (Negative)
--- NOTE | 2022-02-20 11:49 | PC.CHAP ---
Pastoral Care Encounter/Spiritual Assessment Type of Contact [] Declined youth liaison officer visit [] Patient/Family/Request visit [] Outpatient visit [] Follow-up visit [] Physician referral [] Code/Alert [x] Routine visit [] Staff referral [] Actively dying [] Patient sleeping [] Family support [] [] Out of room [] Palliative care [] [] Receiving care in room [] Pre-surgical visit [] Trauma [] Long length of stay ] ICU visit [x] Other: transferred from ICU... seems depressed.... Relational/Emotional Strength [] Patient feels connected with others/family/visitors/staff [] Distress [] Loneliness/isolation [] Abandonment Spirituality of Patient [] Person of Rae [] Attends Sabianism of their Rae [] Believes in Prayer [] Reads Bible or Anglican materials [] There are Spiritual issues to be addressed Physician Office Nurse Interventions [x] Prayer [] Active listening [] Non-anxious presence [] Spiritual/emotional support [] Crisis/trauma care [] Spiritual counseling [] Bereavement support [] Provided bereavement packet [] Provided Bible/devotional materials [] Provided toy/stuffed animal, coloring book to patient or family member [] Provided Communion [] Anointing/[place] [] Salvation [x] Completed spiritual assessment [] Other: Impact on Illness or Injury [] Angry [] Fearful [] Anxious [] Often cries [] Exhaustion [] Unable to work [] Unable to attend confucianist [] Unable to walk/stand [] Unable to read [] Unable to drive [] Unable to eat/drink [] Unable to sleep [] Unable to be with family [] Patient intubated [] Other: Summary Time spent with patient
--- NOTE | 2022-02-20 11:50 | PC.CHAP ---
Pastoral Care Encounter/Spiritual Assessment Type of Contact [] Declined social work program coordinator visit [] Patient/Family/Request visit [] Outpatient visit [] Follow-up visit [] Physician referral [] Code/Alert [x] Routine visit [] Staff referral [] Actively dying [x] Patient sleeping [] Family support [] [] Out of room [] Palliative care [] [] Receiving care in room [] Pre-surgical visit [] Trauma [] Long length of stay [] ICU visit [] Other: Relational/Emotional Strength [] Patient feels connected with others/family/visitors/staff [] Distress [] Loneliness/isolation [] Abandonment Spirituality of Patient [] Person of Rae [] Attends Nondenominational of their Rae [] Believes in Prayer [] Reads Bible or Tenriism materials [] There are Spiritual issues to be addressed House Superintendent Interventions [x] Prayer [] Active listening [] Non-anxious presence [] Spiritual/emotional support [] Crisis/trauma care [] Spiritual counseling [] Bereavement support [] Provided bereavement packet [] Provided Bible/devotional materials [] Provided toy/stuffed animal, coloring book to patient or family member [] Provided Communion [] Anointing/[place] [] Salvation [x] Completed spiritual assessment [] Other: Impact on Illness or Injury [] Angry [] Fearful [] Anxious [] Often cries [] Exhaustion [] Unable to work [] Unable to attend latter-day [] Unable to walk/stand [] Unable to read [] Unable to drive [] Unable to eat/drink [] Unable to sleep [] Unable to be with family [] Patient intubated [] Other: Summary Time spent with patient
[2022-02-20 11:52] LABS: Glucose Point of Care 163 mg/dL (70-110)
--- NOTE | 2022-02-20 12:37 | P.DS_ITS ---
Discharge Providers Date of Admission: 02/16/22 01:57 Date of Discharge: February 20, 2022 Attending Provider at Admission: Sherri Mendoza MD Attending Provider at Discharge: Ashley Munguia MD Primary Care Provider: Daniel Leyva DO Diagnoses at Discharge Discharge Diagnosis (1) Acute on chronic respiratory failure with hypoxemia: Status: Resolved (2) NSTEMI (non-ST elevated myocardial infarction): Status: Resolved (3) CHF exacerbation: Status: Resolved (4) COPD (chronic obstructive pulmonary disease): Status: Acute (5) Lung mass: Status: Acute (6) Pulmonary embolism on right: Status: Resolved (7) Diabetes: Status: Acute Reason for Visit Reason for Visit: RESP. DISTRESS Brief History: Moses Cardoza is a 71 year old male with past medical history of lung cancer, advanced COPD, chronic hypoxemic respiratory failure, small PE in November 2021, severe exertional shortness of breath at the baseline. He is currently brought from long-term with chief complaints of worsening dyspnea over the past 2 days.? Patient is significantly tachypneic at this time.? He is diaphoretic, pale? extremely uncomfortable and unable to participate in his history owing to dyspnea.? He denies any current chest pain.? While being brought to the hospital via EMS he did receive sublingual nitro and has had 8 mg of morphine.? Of note patient is on chronic morphine extended release and hydrocodone APAP at long-term.? Upon initial presentation to the ER his O2 sats was noted to be 89% on room air, thereafter at the time of my assessment patient is saturating 70% on 15 L nonrebreather.? He is being placed on a BiPAP at this time. His labs today are notable for elevated troponin, 111 at baseline, trending up to 143 with a delta of 32.6.? Upon initial arrival there was concern for possible STEMI, however EKG was discussed by ER physician with salvage mend worker Dr. Cloud, and it was opined that findings are not that of a STEMI.? He has nonspecific ST-T wave abnormality in leads V4 V5.? Chest x-ray shows enlarged pulmonary vascularity interpreted as CHF per radiology.? CTA of his chest negative for PE, no aortic dissection, thickening of interstitial markings secondary to edema. Hospital Course Hospital Course Patient was admitted for NSTEMI. He underwent cardiac catheterization and received 1 JIHAN to LAD. Patient was also treated for COPD exacerbation. He also has suspicious pleural space lesion on left side. Patient to follow-up with pulmonology as an outpatient. Patient sent to long-term for rehab. He also recently had a PE and is completed 3 months of Eliquis. We will stop that at this time as per cardiology recommendations. There is no PE evidence on CTA done this hospital stay. Patient discharged to long-term in stable condition today. Follow-up with cardiology as an outpatient and pulmonology. Physical Exam Narrative: General: In acute distress because of chest heaviness and back discomfort, AO x3, chronically ill-appearing, frail appearing HEENT: NC/AT, EOMI Chest: Clear to ausculation b/l, no wheezes or ronchi, diminished at bases and especially at left bases CVS: normal S1, S2, no gross murmers, RRR Abdomen: Soft, nontender, bowel sounds present, Neuro: No focal deficits, no facial deformity, AO x3 Urinary Catheter Management: Ray Latex: Cath Placed During This Visit: yes Reason for Continuing Indwelling Catheter: Accurate Measurement of Urinary Output in Critically Ill Patients Urinary Catheter Date of Insertion: 02/16/22 Urinary Catheter Time of Insertion: 02:40 Discharge Data Studies Completed and Pending Completed Studies During Hospitalization Category Date Time Status CTA chest [CT angio chest PE protcl [id number]] Stat Cat Scan 02/15/22 23:38 Completed XR chest 1V portable [id number] Stat Exams 02/15/22 22:30 Completed CV. echo complete* [id number] Routine Ultrasound 02/16/22 02:19 Completed Pending at discharge Category Date Time Status VENDOR RELATIONSHIP MANAGER request for service Routine Exams 02/18/22 12:11 Taken Blood Culture Stat Lab 02/15/22 22:30 Results Sputum Culture and Gram Stain Stat Lab 02/16/22 15:42 Uncollected Radiology Impressions Chest X-Ray 02/15/22 22:30 IMPRESSION: Congestive heart failure. Chest CTA 02/15/22 23:38 IMPRESSION: 1. No pulmonary embolism. 2. No aortic dissection. 3. Thickening of the interstitial markings which may be secondary to edema or interstitial pneumonia. 4. Grossly stable 3.9 cm left lower lobe mass lesion. Laboratory Results WBC 6.8 10^3/uL (4.0-10.0) 02/19/22 02:28 RBC 3.98 10^6/uL (4.1-5.3) L 02/19/22 02:28 Hgb 10.4 g/dL (11.7-16.6) L 02/19/22 02:28 Hct 35.0 % (42.0-52.0) L 02/19/22 02:28 MCV 87.9 fl (80-94) 02/19/22 02:28 MCH 26.1 pg (28.0-34.0) L 02/19/22 02: MCHC 29.7 g/dL (30.0-36.0) L 02/19/22 02: RDW 12.8 % (12.1-15.1) 02/19/22 02:28 Plt Count 210 10^3/cmm (130-400) 02/19/22 02:28 MPV 10.6 fL (7.4-10.4) H 02/19/22 02:28 Neut % (Auto) 77.7 % 02/19/22 02: Lymph % (Auto) 14.2 % 02/19/22 02:28 [place] % (Auto) 6.9 % 02/19/22 02:28 Eos % (Auto) 0.9 % 02/19/22 02:28 Baso % (Auto) 0.0 % 02/19/22 02:28 Neut # (Auto) 5.30 10^3/uL (1.8-7.7) 02/19/22 02:28 Lymph # (Auto) 1.0 10^3/uL (0.8-4.8) 02/19/22 02:28 [place] # (Auto) 0.5 10^3/uL (0.2-0.9) 02/19/22 02:28 Eos # (Auto) 0.1 10^3/uL (0.0-0.8) 02/19/22 02:28 Baso # (Auto) 0.0 10^3/uL (0.0-0.1) 02/19/22 02:28 Nucleated RBC % (auto) 0 % 02/19/22 02:28 Nucleated RBCs # 0.0 /100WBC 02/19/22 02:28 PT 17.70 SECONDS (12.1-14.9) H 02/15/22 22:35 INR 1.42 (0.8-1.2) H 02/15/22 22:35 Specimen Type Arterial 02/15/22 23:04 Sample Site Radial, right 02/15/22 23:04 ABG pH 7.33 (7.35-7.45) L 02/15/22 23:04 ABG pCO2 58.1 mmHg (35-45) H 02/15/22 23:04 ABG pO2 67.2 mmHg (80.0-100.0) L 02/15/22 23:04 ABG HCO3 30.9 mmol/L (22-26) H 02/15/22 23:04 ABG Base Excess 3.8 mmol/L (-2.0-2.0) H 02/15/22 23:04 Singh Test Pos 02/15/22 23:04 Hematocrit 34.5 % (42-52) L 02/15/22 23:04 Hgb O2 Saturation 89.1 % (95-100) L 02/15/22 23:04 Carboxyhemoglobin 0.6 %THgb (0.4-20.1) 02/15/22 23:04 Methemoglobin 0.9 % (0.4-1.5) 02/15/22 23:04 Total Hemoglobin 11.3 g/dL (14-18) L 02/15/22 23:04 O2 Delivery Device Nc 02/15/22 23:04 O2 Liters/Min 5.0 % 02/15/22 23:04 District Manager Major Accounts Sales ID [email or web address] 02/15/22 23:04 Sodium 137 mmol/L (136-145) 02/20/22 04:08 Potassium 4.1 mmol/L (3.5-5.1) 02/20/22 04:08 Chloride 96 mmol/L (98-107) L 02/20/22 04:08 Carbon Dioxide 33 mmol/L (22-29) H 02/20/22 04:08 Anion Gap 12.1 (5-19) 02/20/22 04:08 BUN 22 mg/dL (8-23) 02/20/22 04:08 Creatinine 0.7 mg/dL (0.7-1.2) 02/20/22 04:08 GFR Calculation 111.5 mL/min (90-130) 02/20/22 04:08 Glucose 248 mg/dL (65-115) H 02/20/22 04:08 POC Glucose 163 mg/dL (70-110) H 02/20/22 11:29 Estimat Average Glucose 160 02/17/22 03:20 Hemoglobin A1c 7.2 % (4.0-6.0) H 02/17/22 03:20 Calculated Osmolality 296 mOsm/kg (285-295) H 02/20/22 04:08 Lactic Acid 1.7 mmol/L (0.5-2.2) 02/15/22 22:35 Calcium 9.9 mg/dL (8.5-10.5) 02/20/22 04:08 Phosphorus 3.3 mg/dL (2.5-4.5) 02/16/22 11:42 Magnesium 2.1 mg/dL (1.7-2.3) 02/17/22 03:20 Iron 33 ug/dL (59-158) L 02/16/22 11:42 TIBC 251 mcg/dl 02/16/22 11:42 % Saturation 13.1 % (20-50) L 02/16/22 11:42 Unsat Iron Binding 218 ug/dL (112-347) 02/16/22 11:42 Total Bilirubin 0.2 mg/dL (0.15-1.2) 02/19/22 02:28 AST 8 U/L (0-40) 02/19/22 02:28 ALT 9 U/L (0-41) 02/19/22 02:28 Alkaline Phosphatase 91 U/L (40-130) 02/19/22 02:28 Troponin T Gen 5 ng/L 129 ng/L (0-15) H* 02/17/22 03:30 Troponin T Baseline 111 ng/L (0-15) H* 02/15/22 22:35 Troponin T 120 Minute 143.6 ng/L (0-15) H 02/16/22 00:48 Delta Troponin T 32.6 ABS# (0-10) H* 02/16/22 00:48 Troponin T Hi Sens 6Hr 163.1 ng/L (0-15) H 02/16/22 03:47 Troponin T Hi Sens 6Hr Delta 52.1 ng/L (0-12) H* 02/16/22 03:47 NT-Pro-B Natriuret Pep 7538 pg/mL (0-125) H 02/16/22 11:42 Total Protein 6.0 g/dL (6.6-8.7) L 02/19/22 02:28 Albumin 2.9 g/dL (3.5-5.2) L 02/19/22 02:28 Globulin 3.1 g/dL (1.3-4.6) 02/19/22 02:28 Triglycerides 101 mg/dL (0-150) 02/17/22 03:20 Cholesterol 116 mg/dL (0-200) 02/17/22 03:20 LDL Cholesterol, Calc 60 mg/dL (50-129) 02/17/22 03:20 Total VLDL Cholesterol 20 mg/dL (0-30) 02/17/22 03:20 HDL Cholesterol 36 mg/dL (60-100) L 02/17/22 03:20 Cholesterol/HDL Ratio 3.22 mg/dL (1.0-5.00) 02/17/22 03:20 Lipase 8 U/L (13-60) L 02/15/22 22:35 Procalcitonin 0.19 ng/mL (0-0.5) 02/16/22 11:42 TSH 0.30 uIU/mL (0.27-4.20) 02/16/22 11:42 Coronavirus 229E (PCR) Not detected (NOT DETECT) 02/15/22 22:50 Influenza Type A Ag negative (Negative) 02/15/22 22:50 Influenza Type B Ag negative (Negative) 02/15/22 22:50 SARS-CoV-2 (PCR) Not detected (NOT DETECT) 02/15/22 22:50 SARS-CoV-2 Ag (Rapid) negative (Negative) 02/20/22 10:45 Vitals Last Vital Signs Temp 98.3 F 02/20/22 11:58 Pulse 72 02/20/22 11:58 Resp 14 02/20/22 12:27 BP 102/66 02/20/22 11:58 Pulse Ox 99 02/20/22 12:27 O2 Del Method 02/20/22 11:58 O2 Flow Rate 2 02/20/22 08:00 FiO2 35 02/19/22 20:00 Discharge Plan Discharge Patient Disposition: Xfer SNF Condition: Stable Prescriptions: New losartan 50 mg Tablet 25 mg PO DAILY Qty: 45 2RF furosemide 40 mg Tablet 40 mg PO DAILY@0800 Qty: 30 2RF metoprolol succinate 50 mg Tablet Extended Release 24 Hr 50 mg PO DAILY Qty: 90 2RF clopidogrel 75 mg Tablet 75 mg PO DAILY Qty: 90 2RF aspirin 81 mg Tablet,Delayed Release (Dr/Ec) 81 mg PO DAILY Qty: 90 3RF Klor-Con M20 20 mEq Tablet,Er Particles/Crystals 20 meq PO DAILY Qty: 30 2RF nitroglycerin 0.4 mg tablet, sublingual 0.4 mg sublingual Q5M PRN (Reason: chest pain) Qty: 30 6RF Rx Instructions: do not exceed 3 doses per episode prednisone 20 mg Tablet See Rx Instructions .ROUTE .COMPLEX 4 Days Qty: 3 0RF Rx Instructions: 20 mg x 2 days 10 mg x 2 days then stop Continued omeprazole 40 mg capsule,delayed release(DR/EC) 40 mg PO DAILY escitalopram oxalate [Lexapro] 10 mg tablet 10 mg PO DAILY polyethylene glycol 3350 17 gram powder in packet 17 g PO DAILY magnesium hydroxide [Milk of Magnesia] 400 mg/5 mL suspension 30 ml PO DAILY PRN (Reason: Constipation) bisacodyl [Dulcolax (bisacodyl)] 10 mg suppository 10 mg MD DAILY PRN (Reason: Constipation) ferrous sulfate 325 mg (65 mg iron) tablet 325 mg PO DAILY Fleet Enema 19-7 gram/118 mL enema 118 ml MD DAILY PRN (Reason: Constipation) Lubricant Eye (PG-PEG 400) 0.4-0.3 % drops 1 drp ophthalmic (eye) .COMPLEX Rx Instructions: 1 drp into right eye four times a day for dry eye Januvia 100 mg tablet 100 mg PO DAILY alendronate 70 mg Tablet 70 mg PO Q7D Rx Instructions: ON SATURDAY tamsulosin 0.4 mg Capsule 0.4 mg PO QPM neomycin-polymyxin B-dexameth [Maxitrol] 3.5 mg/g-10,000 unit/g-0.1 % ointment See Rx Instructions .ROUTE .COMPLEX Rx Instructions: 0.25 inch in left eye one time a day cholecalciferol (vitamin D3) [Vitamin D3] 25 mcg (1,000 unit) Tablet 25 mcg PO DAILY metformin 500 mg tablet 750 mg PO BID ipratropium-albuterol 0.5 mg-3 mg(2.5 mg base)/3 mL Solution For Nebulization 3 ml INHALATION TID albuterol sulfate 2.5 mg /3 mL (0.083 %) solution for nebulization 2.5 mg inhalation Q4H PRN (Reason: Shortness Of Breath) Zyrtec 10 mg Tablet 10 mg PO DAILY morphine 30 mg tablet extended release 30 mg PO TID@07,15,23 guaifenesin 100 mg/5 mL Liquid 100 mg PO Q4H PRN (Reason: Cough) budesonide 0.5 mg/2 mL Suspension For Nebulization 0.5 mg inhalation BID Changed rosuvastatin 10 mg tablet 20 mg PO BEDTIME Qty: 60 2RF Discontinued naproxen sodium 220 mg capsule 220 mg PO BID PRN (Reason: Pain) 30 Days Qty: 60 0RF Eliquis 5 mg tablet 5 mg PO BID Qty: 60 3RF Discharge Orders: Discharge Order (Routine); Ordered 02/20/22 Ordered By: Ashley Munguia Referrals: Sameer Swift MD [Physician] - 1 month (Please keep your appointment with Dr. Swift on April 02 at 8:45A.M. If you have any questions or need to reschedule. Please call ) Chika Angeles FNP [Nurse Practitioner] - 7-10 days (Please follow-up with Chika Angeles on at 8:45A.M. If you have any questions or need to reschedule. Please call ) Rafaela Bradley MD [Physician] - 2 months (This appointment will be made during your follow-up with Chika Angeles. ) Daniel Leyva DO [Primary Care Provider] - 4-7 days Discharge Diet: Cardiac, Diabetic and Low Salt Discharge Activity: Increase activity as tolerated and Oxygen as instructed Patient Instructions: Metoprolol (By mouth), Nitroglycerin (By mouth), Furosemide (By mouth) (Lasix), Prednisone (By mouth), Potassium Chloride (By mouth), Aspirin (By mouth), Losartan (By mouth), Levofloxacin (By mouth), Clopidogrel (By mouth) (Plavix), Heart Catheterization (DC), CHF Stoplight, Chest Pain Stoplight, Opioid Safety, Post Angiogram Home Care Instructions Activity Restrictions/Additional Instructions: Do not lift anything more than 5 lbs for 1 week. Keep the site dry and clean Take medications as prescribed and follow up as scheduled. Follow up with primary care doctor within 4-7 days of discharge and with cardiology as directed. Pulmonology follow up for pleural mass. Discharge Attestations Time Spent in Discharge Care*: other Quality Metrics Clinical Quality Measures [ No reported AMI, CVA or VTE this stay] Coding Level of Care Code Acute g [facility] note Diagnoses Acute on chronic respiratory failure with hypoxemia J96.21 NSTEMI (non-ST elevated myocardial infarction) I21.4 CHF exacerbation I50.9 COPD (chronic obstructive pulmonary disease) J44.9 Lung mass R91.8 Pulmonary embolism on right I26.99 Diabetes E11.9
--- NOTE | 2022-02-20 13:56 | PC.NURSE ---
report called to [facility] called to vernell
--- NOTE | 2022-02-20 15:11 | PC.NURSE ---
transport from [facility] arrived discharge packet provided.
== END 2022-02-20 15:11 | disposition home or self-care (01) | DRG 246 ==
LOC: ER 22:57 → ICU 02-16 01:18 → CSU 02-19 14:24
PROVIDERS: Internal Medicine Cardiovascular Disease; Student in an Organized Health Care Education/Training Program; Admitting Provider Student in an Organized Health Care Education/Training Program; Emergency Provider Emergency Medicine; PCP Internal Medicine; Visit Provider Internal Medicine
PROC: 027034Z Dilation of Coronary Artery, One Artery with Drug-eluting Intraluminal Device, Percutaneous Approach (ICD-10-PCS; principal; 2022-02-18 12:30)
DX: I21.4 Non-ST elevation (NSTEMI) myocardial infarction (principal); I50.21 Acute systolic (congestive) heart failure; J96.21 Acute and chronic respiratory failure with hypoxia; J44.1 Chronic obstructive pulmonary disease with (acute) exacerbation; Z85.118 Personal history of other malignant neoplasm of bronchus and lung; Z90.2 Acquired absence of lung [part of]; M54.42 Lumbago with sciatica, left side; G89.29 Other chronic pain; E11.9 Type 2 diabetes mellitus without complications; K21.9 Gastro-esophageal reflux disease without esophagitis; Z87.01 Personal history of pneumonia (recurrent); Z86.711 Personal history of pulmonary embolism; Z87.891 Personal history of nicotine dependence; I25.5 Ischemic cardiomyopathy; R91.8 Other nonspecific abnormal finding of lung field; Z79.51 Long term (current) use of inhaled steroids; Z79.891 Long term (current) use of opiate analgesic; Z79.84 Long term (current) use of oral hypoglycemic drugs
CPT/HCPCS: 36415; 36416; 36600; 51702; 71045; 71275; 80048; 80053; 80061; 82805; 82962; 83036; 83540; 83550; 83605; 83690; 83735; 83880; 84100; 84145; 84443; 84484; 85025; 85610; 87040; 87426; 87635; 87641; 87804; 92523; 92610; 93005; 93306; 93458; 94640; 94660; 94664; 96360; 96365; 96367; 96372; 96375; 97116; 97161; 97530; 99152; 99153; 99285; C1769; C1874; C1887; C1894; C9113; C9600; J0456; J0696; J1644; J1650; J1815; J1940; J1956; J2250; J2270; J2920; J2930; J3010; J3475; J3490; J7030; J7050; J7512; J7626; Q9967

== ENCOUNTER 2022-02-28 11:44 | Emergency (ER) | payer MEDICARE, MEDICAID, SELFPAY ==
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
[2022-02-28 12:04] VITALS: BP 104/56; PULSE 84; O2SAT 95
--- NOTE | 2022-02-28 12:22 | PC.NURSE ---
report called to jonathon at [facility]. they will have transport for pt to be discharged back
== END 2022-02-28 12:45 ==
PROVIDERS: Emergency Provider Emergency Medicine; PCP Internal Medicine
DX: Z00.8 Encounter for other general examination (principal)
CPT/HCPCS: 99283

== ENCOUNTER → 2022-03-02 08:19 | Outpatient (BNVA) | payer MEDICARE, MEDICAID, SELFPAY | PROVIDERS: PCP Internal Medicine; Visit Provider Nurse Practitioner Family | DX: I25.10 Atherosclerotic heart disease of native coronary artery without angina pectoris (principal); I50.40 Unspecified combined systolic (congestive) and diastolic (congestive) heart failure; Z87.891 Personal history of nicotine dependence | CPT/HCPCS: 36415; 80048; 99214 ==

== ENCOUNTER → 2022-04-17 13:42 | Outpatient (BNVA) | payer MEDICARE, MEDICAID, SELFPAY | PROVIDERS: PCP Internal Medicine; Visit Provider Internal Medicine Cardiovascular Disease | DX: I25.10 Atherosclerotic heart disease of native coronary artery without angina pectoris (principal); I50.40 Unspecified combined systolic (congestive) and diastolic (congestive) heart failure; J44.9 Chronic obstructive pulmonary disease, unspecified; C34.90 Malignant neoplasm of unspecified part of unspecified bronchus or lung; Z87.891 Personal history of nicotine dependence | CPT/HCPCS: 99214; Q3014 ==

== ENCOUNTER 2022-04-25 09:28 | Outpatient (CLI) | payer MEDICARE, MEDICAID, SELFPAY ==
--- NOTE | 2022-04-25 10:00 | CT_ITS ---
WS: [id number] CT CHEST WITHOUT INTRAVENOUS CONTRAST HISTORY: 3 month follow-up, history of lung cancer. TECHNIQUE: Contiguous 5 mm axial imaging performed on the thorax. Coronal and sagittal reformats are submitted. All CT scans at [facility] use at least one of these dose optimization techniques: automated exposure control; mA and/or kV adjustment per patient size (includes targeted exams where dose is matched to clinical indication); or iterative reconstruction. CONTRAST: None DLP: 367.74 mGy.cm COMPARISON: 02/17/2020, 02/15/2022, 11/15/2021 Lungs and central airway: Status post RIGHT lower lobectomy. No recurrent mass at the lobectomy surgi júnior site. There is volume loss in the RIGHT thorax. The lobectomy. Changes of emphysema. LEFT lung is hyperexpanded crossing the midline. Soft tissue mass medial LEFT lower lobe. This measures 3.3 x 1.4 cm with adjacent pleural thickening. This mass was present on the prior study of 02/15/2022 with birgit cent atelectasis and inflammation. Mass is similar in size to 11/15/2021 and new since 02/17/2020. Pleura: Mild pleural thickening at the lung bases. No change. Heart and pericardium: Normal size heart with no pericardial effusion. Mediastinum and mesha: No mediastinum or hilar adenopathy. Vessels: Mild atherosclerosis aorta. Normal pulmonary artery. Chest wall and lower neck: No soft tissue masses. Upper abdomen: Unenhanced imaging of the liver demonstrates no metastatic lesions. Prior cholecystect humaira. No adrenal mass. Osseous structures: Increase in thoracic kyphosis. Prior fracture and kyphoplasty at L2. CT/CT chest wo con [id number] IMPRESSION: 1. Status post RIGHT lower lobectomy. No recurrent mass at the surgical site. No adenopathy. 2. Stable mass medial LEFT lower lobe measures 3.3 x 1.4 cm. No increase in si ze since 11/15/2021. Recommend continue close follow-up. This may be an area of c hronic atelectasis. Will need serial surveillance imaging. 3. Chronic emphysema. 4. Prior cholecystectomy.
== END 2022-04-25 09:29 | disposition home or self-care (01) ==
PROVIDERS: PCP Internal Medicine; Visit Provider Internal Medicine Critical Care Medicine
DX: R91.8 Other nonspecific abnormal finding of lung field (principal); Z85.118 Personal history of other malignant neoplasm of bronchus and lung; Z90.49 Acquired absence of other specified parts of digestive tract; J43.9 Emphysema, unspecified; Z90.2 Acquired absence of lung [part of]
CPT/HCPCS: 71250

== ENCOUNTER 2022-04-30 09:43 | Day surgery (SDC) | payer MEDICARE, MEDICAID, SELFPAY ==
[2022-04-26 12:35] VITALS: BMI 23.3
--- NOTE | 2022-04-26 13:15 | PC.NURSE ---
Spoke with Maria C NUGENT with [facility] regarding Moses's medication list. Confirmed current medications and provided special instruction per anesthesia protocol on which medications to hold/give/modify prior to procedure. Confirmed they received instruction from Dr. Yo's office to hold blood thinners 5 days prior to procedure.
[2022-04-30 10:44] LABS: Basophils % 0.4 %; Eosinophils # 0.3 10^3/uL (0.0-0.8); Hematocrit 30.1 % (42.0-52.0); Lymphocytes % 18.9 %; Mean Corpuscular HGB Conc 29.9 g/dL (30.0-36.0); Mean Corpuscular Hemoglobin 26.2 pg (28.0-34.0); Mean Corpuscular Volume 87.5 fl (80-94); Mean Platelet Volume 10.2 fL (7.4-10.4); Monocytes # 0.5 10^3/uL (0.2-0.9); Monocytes % 9.7 %; Neutrophils # 3.36 10^3/uL (1.8-7.7); Neutrophils % 64.8 %; Nucleated Red Blood Cells % 0 %; Platelet Count 176 10^3/cmm (130-400); Red Blood Count 3.44 10^6/uL (4.1-5.3); Red Cell Distribution Width 14.1 % (12.1-15.1); White Blood Count 5.2 10^3/uL (4.0-10.0)
[2022-04-30] MEDS: sodium chloride 0.9% 1,000 ML 30 ML IV (10:45)
[2022-04-30 10:47] LABS: Glucose Point of Care 85 mg/dL (70-110)
[2022-04-30 10:59] LABS: INR 1.05 (0.8-1.2)
[2022-04-30 11:00] VITALS: BP 97/43; PULSE 48; RESP 18; TEMP 36.5; O2SAT 92
--- NOTE | 2022-04-30 11:35 | ANES.PREANE2 ---
Pre-Anesthetic Assessment Height/Weight: Height 1.8 m Weight 75.75 kg Temp Pulse Resp BP Pulse Ox O2 Del Method O2 Flow Rate 97.7 F 48 L 18 97/43 92 3 04/30/22 11:00 04/30/22 11:00 04/30/22 11:00 04/30/22 11:00 04/30/22 11:00 04/30/22 11:00 04/30/22 11:00 Operation Date: 04/30/22 12:00 Proposed Procedures p Bone Marrow Biospy With Aspiration(Not Applicable) - Hussein Yo MD Was Beta Deniz taken within 24 hours: Yes Was Clonidine taken within 24 hours: N/A Last intake: Intake Last Liquid Date 04/29/22 Last Liquid Time 17:00 Last Solid Date 04/29/22 Last Solid Time 17:00 Social No alcohol and No tobacco Exam alert, oriented x 3, clear to auscultation bilaterally (Diminished bilaterally) and regular rate & rhythm Airway Submandibular: within normal limits Cervical ROM: within normal limits Mallampati: Class II Dentition: false History/ROS No significant history except as noted and No significant complaints Pulmonary Chronic Obstructive Pulmonary Disease (Emphysema), Exertional Dyspnea and Shortness of Breath Lung cancer 3L O2 at all times CV/HEM Coronary Artery Disease, Congestive Heart Failure, Deep Vein Thrombosis, Hypertension and Myocardial Infarction (1 stent) EF 35% None reported Hepatic Hepatitis GI Gastroesophageal Reflux Disease and Peptic Ulcer Disease Metabolic Diabetes Mellitus Musc/skel Lower Back Pain, Osteoarthritis/DJD and Weakness Neuropsych Anxiety, Depression and Neuropathy Anesthetic Plan ASA status: 4 Anesthesia: General and MAC Risk of > 500 ml blood loss (7ml/kg in children): No Medications/Allergies Home Medications Medication Instructions Recorded Confirmed Last Taken Type alendronate 70 mg tablet 70 mg PO Q7D 04/16/19 04/30/22 04/25/22 History escitalopram oxalate 10 mg tablet 10 mg PO DAILY 06/16/20 04/30/22 04/30/22 History (Lexapro) neomycin 3.5 mg/g-polymyxin B See Rx Instructions .Route .COMPLEX 05/25/21 04/30/22 04/30/22 History 10,000 unit/g-dexameth 0.1 % eye oint (Maxitrol) cholecalciferol (vitamin D3) 25 25 mcg PO DAILY 11/15/21 04/30/22 04/30/22 History mcg (1,000 unit) tablet (Vitamin D3) bisacodyl 10 mg rectal suppository 10 mg IA DAILY PRN Constipation 01/18/22 04/30/22 03/03/22 History (Dulcolax (bisacodyl)) ferrous sulfate 325 mg (65 mg 325 mg PO DAILY 01/18/22 04/30/22 04/30/22 History iron) tablet magnesium hydroxide 400 mg/5 mL 30 ml PO DAILY PRN Constipation 01/18/22 04/30/22 2 Weeks Ago History oral suspension (Milk of Magnesia) ~04/12/22 peg 400-propylene glycol 0.4 %-0.3 1 drp ophthalmic (eye) .COMPLEX 01/18/22 04/30/22 04/30/22 History % eye drops (Lubricant Eye (PG-PEG 400)) polyethylene glycol 3350 17 gram 17 g PO DAILY 01/18/22 04/30/22 04/30/22 History oral powder packet sodium phosphates 19 gram-7 118 ml IA DAILY PRN Constipation 01/18/22 04/30/22 3 Months Ago History gram/118 mL enema (Fleet Enema) ~01/24/22 albuterol sulfate 2.5 mg/3 mL 2.5 mg inhalation Q4H PRN 02/16/22 04/30/22 Unknown History (0.083 %) solution for nebulization Shortness Of Breath budesonide 0.5 mg/2 mL suspension 0.5 mg inhalation BID 02/16/22 04/30/22 04/30/22 History for nebulization cetirizine 10 mg tablet (Zyrtec) 10 mg PO DAILY 02/16/22 04/30/22 04/30/22 History guaifenesin 100 mg/5 mL oral liquid 100 mg PO Q4H PRN Cough 02/16/22 04/30/22 2 Weeks Ago History ~04/12/22 ipratropium 0.5 mg-albuterol 3 mg 3 ml inhalation TID 02/16/22 04/30/22 04/30/22 History (2.5 mg base)/3 mL nebulization soln metformin 500 mg tablet 750 mg PO BID 11/04/22 01/16/23 01/12/23 History morphine 30 mg tablet,extended 30 mg PO TID@07,15,23 02/16/22 04/30/22 04/30/22 History release aspirin 81 mg tablet,delayed 81 mg PO DAILY #90 tabs 02/20/22 04/30/22 04/26/22 Rx release clopidogrel 75 mg tablet 75 mg PO DAILY #90 tabs 02/20/22 04/30/22 04/26/22 Rx losartan 50 mg tablet 25 mg PO DAILY #45 tabs 02/20/22 04/30/22 04/26/22 Rx metoprolol succinate 50 mg 50 mg PO DAILY #90 tabs 02/20/22 04/30/22 04/30/22 Rx tablet,extended release 24 hr nitroglycerin 0.4 mg sublingual 0.4 mg sublingual Q5M PRN chest 02/20/22 04/30/22 Unknown Rx tablet pain #30 tabs potassium chloride 20 mEq 20 meq PO DAILY #30 tabs 02/20/22 04/30/22 04/30/22 Rx tablet,extended release(part/cryst) (Klor-Con M) rosuvastatin 10 mg tablet 20 mg PO BEDTIME #60 tabs 02/20/22 04/30/22 04/29/22 Rx acetaminophen 325 mg tablet 325 mg PO QID PRN Pain 04/17/22 04/30/22 1 Week Ago History ~04/19/22 finasteride 5 mg tablet 5 mg PO DAILY 04/17/22 04/30/22 04/28/22 History furosemide 40 mg tablet 20 mg PO DAILY@0800 PRN Edema 04/17/22 04/30/22 04/30/22 History insulin aspart U-100 100 unit/mL 5 unit SUBCUT .Sliding scale 04/17/22 04/30/22 04/26/22 History subcutaneous solution (Novolog U-100 Insulin aspart) insulin degludec 100 unit/mL (3 25 unit SUBCUT .HS 04/17/22 04/30/22 04/29/22 History mL) subcutaneous pen (Tresiba FlexTouch U-100 insulin) lorazepam 0.5 mg tablet (Ativan) 0.5 mg PO DAILY 04/17/22 04/30/22 Unknown History tamsulosin 0.4 mg capsule 0.4 mg PO DAILY 04/20/22 04/30/2223 History Allergies Allergy/AdvReac Type Severity Reaction Status Date / Time tree and shrub pollen Allergy ADR-Headach Verified 04/30/22 10:15 e [facility] Anesthesia Medical History Atherosclerosis of coronary artery 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 Hwang -[place] Hx of cholecystectomy Hx of eye surgery bilat-Dr. Navarrete did right and Dr. Perez in [place] Hx of kyphoplasty 07/05/[address] Powell Status post colonoscopy (05/11/20) normal Family History Brother Cancer Diabetes Heart disease Social History Smoking and tobacco status: former smoker (smoked x 40 years) Quit status (tobacco): has quit using tobacco Year quit tobacco: 2015 - PPD x 45 Years Former quit date comment: Started at age 17 Second hand smoke exposure: No Smoking risk assessment/counseling performed?: Yes Alcohol intake: former Year of sobriety/quit date alcohol: 2013 Former alcohol use details: beer Lives independently: Yes Household members: none Marital status: service: No Current occupational status: disabled History of recent travel: No Current gender identity: Male Data Anesthesia 04/30/22 10:34 Short CBC 04/30/22 Range/Units 10:34 WBC 5.2 (4.0-10.0) 10^3/uL Hgb 9.0 L (11.7-16.6) g/dL Hct 30.1 L (42.0-52.0) % MCV 87.5 (80-94) fl Plt Count 176 (130-400) 10^3/cmm Neut % (Auto) 64.8 % Neut # (Auto) 3.36 (1.8-7.7) 10^3/uL Coags 04/30/22 10:34 PT 14.00 INR 1.05 Cardiac Studies: Echocardiogram 02/16/22
--- NOTE | 2022-04-30 11:59 | W.PM.OPSUD ---
Surgery/Procedure H&P Update DATE OF PROCEDURE: April 30, 2022 DATE H&P PERFORMED: 02/17/22 CHANGES TO PREVIOUS DOCUMENTATION: Patient seen and examined, no obvious new symptom or sign since his recent visit to the clinic PREOP DIAGNOSIS: NSTEMI PRIMARY INDICATION FOR PROCEDURE: Persistent/progressive anemia PLANNED PROCEDURE: Operation Date: 04/30/22 12:00 Proposed Procedures p Bone Marrow Biospy With Aspiration(Not Applicable) - Hussein Yo MD
--- NOTE | 2022-04-30 12:20 | P.PCN_ITS ---
Bone Marrow Biopsy Bone Marrow Biopsy: I was consulted by [] office regarding bone marrow biopsy on [[facility]]. Briefly, the patient is a [72] year old [Male] with [Anemia]. In the Outpatient Services Department, with nursing staff and laboratory technologists in attendance, the procedure was discussed with the patient. Appropriate consent form had been signed. Appropriate alternatives, benefits and risks of procedure were discussed with the patient and he was pre- operatively assessed with a history and physical by myself and cleared for the biopsy procedure. The patient did request IV sedation and that was provided by the Anesthesia Department. Under aseptic condition right posterior iliac area was cleaned and prepped, local anesthesia was given, about 15 cc of bone marrow aspirate and core biopsy was obtained, patient tolerated procedure well, hemostasis obtained, specimen was sent for routine histopathology, flow cytometry, cytogenetics and FISH for MDS. Postprocedure nursing instructions were given Thank you for allowing me to participate in this patient's care and diagnosis. Coding Level of Care Code Acute Code for Chg Fwd History Problem Focused Exam Problem Focused Medical Decision Making Straight Forward
[2022-04-30 12:22] VITALS: BP 96/52; PULSE 42; RESP 16; TEMP 36.3; O2SAT 100
[2022-04-30 12:32] VITALS: BP 96/49; PULSE 44; RESP 16; O2SAT 100
[2022-04-30 12:42] VITALS: BP 91/56; PULSE 49; RESP 16; O2SAT 97
--- NOTE | 2022-04-30 14:43 | ANE.PACU2 ---
Inpatient post-anesthesia follow up: Airway intact: Yes Vital signs: Temperature 97.3 F Pulse Rate 49 Respiratory Rate 16 Blood Pressure 91/56 Pulse Oximetry 97 Oxygen Delivery Me thod Nasal Cannula Oxygen Flow Rate 3 Fraction of Inspir ed Oxygen Hydration adequate: Yes Nausea and vomiting: No Pain level: 2 Mental status: Baseline
[2022-05-01 16:22] LABS: Leukemia Profile (BBPL) See Report; Lymphoma Profile (BBPL) See Report
[2022-05-10 15:47] LABS: Chromosome Analysis BBPL See Report; MDS Panel (BBPL) See Report
== END 2022-04-30 13:00 | disposition home or self-care (01) ==
PROVIDERS: PCP Internal Medicine; Visit Provider Internal Medicine Hematology & Oncology
PROC: 07DT3ZX Extraction of Bone Marrow, Percutaneous Approach, Diagnostic (ICD-10-PCS; CPT 38222; principal; 2022-04-30 12:00)
DX: D64.9 Anemia, unspecified (principal); J43.8 Other emphysema; C34.90 Malignant neoplasm of unspecified part of unspecified bronchus or lung; Z99.81 Dependence on supplemental oxygen; I25.10 Atherosclerotic heart disease of native coronary artery without angina pectoris; I11.0 Hypertensive heart disease with heart failure; I50.9 Heart failure, unspecified; Z86.718 Personal history of other venous thrombosis and embolism; I25.2 Old myocardial infarction; Z95.5 Presence of coronary angioplasty implant and graft; E11.40 Type 2 diabetes mellitus with diabetic neuropathy, unspecified; Z79.4 Long term (current) use of insulin; Z87.891 Personal history of nicotine dependence
CPT/HCPCS: 36415; 36416; 38222; 82962; 85025; 85610; 88184; 88185; 88237; 88264; 88291; 88305; 88311; 88367; 88374; J2704; J7030

== ENCOUNTER 2022-05-10 10:00 | Oncology outpatient (recurring) (ONCR) | payer MEDICARE, MEDICAID, SELFPAY ==
[2022-05-10 09:53] LABS: Basophils % 0.5 %; Eosinophils # 0.3 10^3/uL (0.0-0.8); Eosinophils % 5.5 %; Hematocrit 30.2 % (42.0-52.0); Hemoglobin 9.1 g/dL (11.7-16.6); Lymphocytes # 0.9 10^3/uL (0.8-4.8); Lymphocytes % 14.1 %; Mean Corpuscular HGB Conc 30.1 g/dL (30.0-36.0); Mean Corpuscular Hemoglobin 26.1 pg (28.0-34.0); Mean Corpuscular Volume 86.5 fl (80-94); Monocytes # 0.5 10^3/uL (0.2-0.9); Monocytes % 7.8 %; Neutrophils # 4.31 10^3/uL (1.8-7.7); Neutrophils % 71.8 %; Nucleated Red Blood Cells % 0 %; Platelet Count 160 10^3/cmm (130-400); Red Blood Count 3.49 10^6/uL (4.1-5.3); Red Cell Distribution Width 14.5 % (12.1-15.1)
== END 2022-05-15 23:59 | disposition home or self-care (01) ==
PROVIDERS: PCP Internal Medicine; Visit Provider Internal Medicine Hematology & Oncology
DX: D50.9 Iron deficiency anemia, unspecified (principal); J44.9 Chronic obstructive pulmonary disease, unspecified; Z99.81 Dependence on supplemental oxygen; Z79.01 Long term (current) use of anticoagulants; Z85.118 Personal history of other malignant neoplasm of bronchus and lung; Z86.711 Personal history of pulmonary embolism; Z87.891 Personal history of nicotine dependence
CPT/HCPCS: 36415; 85025; 99214

== ENCOUNTER → 2022-05-24 10:18 | Outpatient (BNVA) | payer MEDICARE, MEDICAID, SELFPAY | PROVIDERS: PCP Internal Medicine; Visit Provider Internal Medicine Pulmonary Disease | DX: J44.9 Chronic obstructive pulmonary disease, unspecified (principal); J96.11 Chronic respiratory failure with hypoxia; L85.3 Xerosis cutis; I25.10 Atherosclerotic heart disease of native coronary artery without angina pectoris; Z87.891 Personal history of nicotine dependence; Z99.81 Dependence on supplemental oxygen; Z95.5 Presence of coronary angioplasty implant and graft; Z86.711 Personal history of pulmonary embolism; Z79.01 Long term (current) use of anticoagulants | CPT/HCPCS: 99214 ==

== ENCOUNTER 2022-07-05 14:54 | Oncology outpatient (recurring) (ONCR) | payer MEDICARE, MEDICAID, SELFPAY ==
[2022-07-05 15:38] LABS: Erythrocyte Sedimentation Rate 37 mm/hr (0-10)
[2022-07-05 15:42] LABS: Basophils % 0.4 %; Eosinophils # 0.4 10^3/uL (0.0-0.8); Eosinophils % 5.9 %; Hematocrit 30.4 % (42.0-52.0); Hemoglobin 9.5 g/dL (11.7-16.6); Lymphocytes # 1.1 10^3/uL (0.8-4.8); Lymphocytes % 16.4 %; Mean Corpuscular HGB Conc 31.3 g/dL (30.0-36.0); Mean Corpuscular Hemoglobin 26.7 pg (28.0-34.0); Mean Corpuscular Volume 85.4 fl (80-94); Mean Platelet Volume 9.8 fL (7.4-10.4); Monocytes # 0.6 10^3/uL (0.2-0.9); Monocytes % 9.2 %; Neutrophils # 4.59 10^3/uL (1.8-7.7); Neutrophils % 67.8 %; Nucleated Red Blood Cells % 0 %; Platelet Count 199 10^3/cmm (130-400); Red Blood Count 3.56 10^6/uL (4.1-5.3); Red Cell Distribution Width 13.8 % (12.1-15.1); Reticulocyte % 1.2 % (0.5-2.0); White Blood Count 6.8 10^3/uL (4.0-10.0)
[2022-07-05 15:57] LABS: Alanine Aminotransferase < 5 U/L (0-41); Alkaline Phosphatase 92 U/L (40-130); Anion Gap 13.8 (5-19); Aspartate Amino Transferase 10 U/L (0-40); Blood Urea Nitrogen 20 mg/dL (8-23); Carbon Dioxide 31 mmol/L (22-29); Chloride 98 mmol/L (98-107); Globulin 3.6 g/dL (1.3-4.6); Glucose 208 mg/dL (65-115); Osmolality Calculated 295 mOsm/kg (285-295); Potassium 4.8 mmol/L (3.5-5.1); Sodium 138 mmol/L (136-145); Total Bilirubin 0.3 mg/dL (0.15-1.2); Total Protein 7.6 g/dL (6.6-8.7)
== END 2022-07-13 23:59 | disposition home or self-care (01) ==
PROVIDERS: PCP Internal Medicine; Visit Provider Internal Medicine Hematology & Oncology
DX: D50.9 Iron deficiency anemia, unspecified (principal); Z85.118 Personal history of other malignant neoplasm of bronchus and lung; Z87.891 Personal history of nicotine dependence; I26.99 Other pulmonary embolism without acute cor pulmonale; Z79.01 Long term (current) use of anticoagulants; Z79.899 Other long term (current) drug therapy; J44.9 Chronic obstructive pulmonary disease, unspecified
CPT/HCPCS: 36415; 80053; 85025; 85045; 85651; 99214

== ENCOUNTER 2022-07-13 08:25 | Emergency (ER) | payer MEDICARE, MEDICAID, SELFPAY ==
[2022-07-13 08:25] VITALS: BP 140/58; PULSE 53; RESP 16; TEMP 36.3; O2SAT 100
--- NOTE | 2022-07-13 08:46 | PC.PHAR ---
called [facility] for jun at 8:40 am
[2022-07-13 09:14] LABS: Basophils % 0.4 %; Eosinophils # 0.3 10^3/uL (0.0-0.8); Eosinophils % 4.9 %; Hematocrit 31.6 % (42.0-52.0); Lymphocytes % 14.7 %; Mean Corpuscular HGB Conc 31.6 g/dL (30.0-36.0); Mean Corpuscular Hemoglobin 27.3 pg (28.0-34.0); Mean Corpuscular Volume 86.3 fl (80-94); Mean Platelet Volume 9.2 fL (7.4-10.4); Monocytes # 0.5 10^3/uL (0.2-0.9); Monocytes % 7.7 %; Neutrophils # 4.85 10^3/uL (1.8-7.7); Nucleated Red Blood Cells % 0 %; Platelet Count 185 10^3/cmm (130-400); Red Blood Count 3.66 10^6/uL (4.1-5.3); White Blood Count 6.7 10^3/uL (4.0-10.0)
--- NOTE | 2022-07-13 09:14 | W.ED.EPISTAX ---
HPI - Epistaxis General: Chief complaint: Epistaxis Stated complaint: EPISTAXIS Source: patient Mode of arrival: EMS History of Present Illness: 72-year-old male presents to the emergency room with complaints of epistaxis. Began 45 minutes ago. He is on aspirin and clopidogrel. Brought in by EMS with a clamp in place. Patient has a history of lung cancer. He is not currently being treated. 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 Hwang -[place] Hx of cholecystectomy Hx of eye surgery bilat-Dr. Navarrete did right and Dr. Perez in [place] Hx of kyphoplasty 07/05/[address] Powell Status post colonoscopy (05/11/20) normal Family History Brother Cancer Diabetes Heart disease Social History Smoking and tobacco status: former smoker (smoked x 40 years) Quit status (tobacco): has quit using tobacco Year quit tobacco: 2016 - PPD x 45 Years Former quit date comment: Started at age 17 Second hand smoke exposure: No Smoking risk assessment/counseling performed?: Yes Alcohol intake: former Year of sobriety/quit date alcohol: 2013 Former alcohol use details: beer Lives independently: Yes Household members: none Marital status: service: No Current occupational status: disabled Current gender identity: Male Physical Exam Const: COMMON NORMALS: no acute distress GENERAL APPEARANCE: cooperative and comfortable ORIENTATION/CONSCIOUSNESS: Yes awake, Yes oriented to person, Yes oriented to place and Yes oriented to time HENMT: COMMON NORMALS: normocephalic, atraumatic and hearing grossly normal bilaterally HEAD & SCALP: normocephalic and atraumatic OTHER: Blood in the nares but no active bleeding. After clots removed there is no continued bleeding. Resp: COMMON NORMALS: normal respiratory effort, No retractions, No use of accessory muscles and clear to auscultation bilaterally AUSCULTATION: clear to auscultation bilaterally Cardio: COMMON NORMALS: regular rate, regular rhythm and No murmurs present (Cardio) RATE: regular rate RHYTHM: regular rhythm GI: COMMON NORMALS: Soft to palpation and No hepatosplenomegaly present AUSCULTATION: Yes normoactive bowel sounds PALPATION: Yes Soft to palpation, No Tenderness to palpation present (GI), No Guarding due to palpation present (GI) and Yes No hepatosplenomegaly present Extremity: COMMON NORMALS: normal to inspection, capillary refill normal, no clubbing, cyanosis or edema, no calf tenderness and no pedal edema Neuro: SENSORIUM/ORIENTATION: Yes oriented to person, Yes oriented to place and Yes oriented to time Skin: COMMON NORMALS: no rashes or lesions noted GENERAL SKIN EXAM: no rashes or lesions noted Course Vital Signs: Vital signs: Vital Signs Temperature 97.4 F L 07/13/22 08:25 Pulse Rate 53 L 07/13/22 08:25 Respiratory Rate 16 07/13/22 08:25 Blood Pressure 140/58 07/13/22 08:25 Pulse Oximetry 100 07/13/22 08:25 Oxygen Delivery Me thod 07/13/22 08:25 Oxygen Flow Rate 4 07/13/22 08:25 MDM - Epistaxis Medical Decision Making Bleeding stopped after sinuses were flushed with normal saline and then oxymetazoline sprayed. He had extended time with an anterior clamp prior to that. Bleeding is stopped will discharge home regular use of oxymetazoline for 3 days topical antibiotic ointment in the nares for 5 days as well as oral Augmentin for 5 days. Medical Records I reviewed the patient's medical records. Lab Data I reviewed the patient's lab results. 07/13/22 09:00 07/13/22 09:00 Laboratory Results WBC 6.7 10^3/uL (4.0-10.0) 07/13/22 09:00 RBC 3.66 10^6/uL (4.1-5.3) L 07/13/22 09:00 Hgb 10.0 g/dL (11.7-16.6) L 07/13/22 09:00 Hct 31.6 % (42.0-52.0) L 07/13/22 09:00 MCV 86.3 fl (80-94) 07/13/22 09:00 MCH 27.3 pg (28.0-34.0) L 07/13/22 09:00 MCHC 31.6 g/dL (30.0-36.0) 07/13/22 09:00 RDW 14.0 % (12.1-15.1) 07/13/22 09:00 Plt Count 185 10^3/cmm (130-400) 07/13/22 09:00 MPV 9.2 fL (7.4-10.4) 07/13/22 09:00 Neut % (Auto) 72.0 % 07/13/22 09:00 Lymph % (Auto) 14.7 % 07/13/22 09:00 [place] % (Auto) 7.7 % 07/13/22 09:00 Eos % (Auto) 4.9 % 07/13/22 09:00 Baso % (Auto) 0.4 % 07/13/22 09:00 Neut # (Auto) 4.85 10^3/uL (1.8-7.7) 07/13/22 09:00 Lymph # (Auto) 1.0 10^3/uL (0.8-4.8) 07/13/22 09:00 [place] # (Auto) 0.5 10^3/uL (0.2-0.9) 07/13/22 09:00 Eos # (Auto) 0.3 10^3/uL (0.0-0.8) 07/13/22 09:00 Baso # (Auto) 0.0 10^3/uL (0.0-0.1) 07/13/22 09:00 Nucleated RBC % (auto) 0 % 07/13/22 09:00 Nucleated RBCs # 0.0 /100WBC 07/13/22 09:00 PT 13.70 SECONDS (12.1-14.9) 07/13/22 09:00 INR 1.02 (0.8-1.2) 07/13/22 09:00 APTT 30.3 SECONDS (23.9-36.7) 07/13/22 09:00 Sodium 142 mmol/L (136-145) 07/13/22 09:00 Potassium 4.5 mmol/L (3.5-5.1) 07/13/22 09:00 Chloride 101 mmol/L (98-107) 07/13/22 09:00 Carbon Dioxide 32 mmol/L (22-29) H 07/13/22 09:00 Anion Gap 13.5 (5-19) 07/13/22 09:00 BUN 19 mg/dL (8-23) 07/13/22 09:00 Creatinine 0.7 mg/dL (0.7-1.2) 07/13/22 09:00 GFR Calculation Not Reportable 07/13/22 09:00 Glucose 84 mg/dL (65-115) 07/13/22 09:00 Calculated Osmolality 295 mOsm/kg (285-295) 07/13/22 09:00 Calcium 9.2 mg/dL (8.5-10.5) 07/13/22 09:00 Total Bilirubin 0.2 mg/dL (0.15-1.2) 07/13/22 09:00 AST 12 U/L (0-40) 07/13/22 09:00 ALT 7 U/L (0-41) 07/13/22 09:00 Alkaline Phosphatase 78 U/L (40-130) 07/13/22 09:00 Total Protein 7.0 g/dL (6.6-8.7) 07/13/22 09:00 Albumin 3.9 g/dL (3.5-5.2) 07/13/22 09:00 Globulin 3.1 g/dL (1.3-4.6) 07/13/22 09:00 Discharge Plan Discharge Patient Disposition: Home Clinical Impression: Acute anterior epistaxis Condition: Stable Prescriptions: New Nasal [place] (oxymetazoline) 0.05 % spray,non-aerosol 2 spray intranasal BID 3 Days Qty: 22 0RF Rx Instructions: 2 sprays each nostril twice daily x3 days mupirocin 2 % ointment 1 applic topical BID Qty: 15 0RF Rx Instructions: Apply to nares gently with a Q-tip twice daily after nasal spray Augmentin 500-125 mg tablet 1 tab PO Q8H 5 Days Qty: 15 0RF No Action Calamine Medicated 1-8 % lotion 1 applic topical TID PRN (Reason: itching) Qty: 177 6RF Trelegy Ellipta 100-62.5-25 mcg blister with device 1 inh inhalation DAILY Qty: 60 6RF polyethylene glycol 3350 17 gram powder in packet 17 g PO DAILY ferrous sulfate 325 mg (65 mg iron) tablet 325 mg PO DAILY Fleet Enema 19-7 gram/118 mL enema 118 ml IN DAILY PRN (Reason: Constipation) Lubricant Eye (PG-PEG 400) 0.4-0.3 % drops 1 drp ophthalmic (eye) .COMPLEX Rx Instructions: 1 drp into right eye four times a day for dry eye finasteride 5 mg tablet 5 mg PO DAILY acetaminophen 325 mg tablet 325 mg PO QID PRN (Reason: Pain) insulin aspart U-100 [Novolog U-100 Insulin aspart] 100 unit/mL solution 5 unit SUBCUT .Sliding scale Tresiba FlexTouch U-100 100 unit/mL (3 mL) insulin pen 25 unit SUBCUT .HS furosemide 40 mg tablet 20 mg PO DAILY@0800 PRN (Reason: Edema) Rx Instructions: 40mg extra PRN metformin 500 mg tablet 500 mg PO BID potassium chloride 10 mEq capsule, extended release 10 meq PO DAILY Qty: 30 0RF alendronate 70 mg Tablet 70 mg PO Q7D Rx Instructions: ON SATURDAY neomycin-polymyxin B-dexameth [Maxitrol] 3.5 mg/g-10,000 unit/g-0.1 % ointment See Rx Instructions .ROUTE .COMPLEX Rx Instructions: 0.25 inch in left eye one time a day cholecalciferol (vitamin D3) [Vitamin D3] 25 mcg (1,000 unit) Tablet 25 mcg PO DAILY ipratropium-albuterol 0.5 mg-3 mg(2.5 mg base)/3 mL Solution For Nebulization 3 ml INHALATION TID albuterol sulfate 2.5 mg /3 mL (0.083 %) solution for nebulization 2.5 mg inhalation Q4H PRN (Reason: Shortness Of Breath) morphine 30 mg tablet extended release 30 mg PO TID@07,15,23 guaifenesin 100 mg/5 mL Liquid 100 mg PO Q4H PRN (Reason: Cough) budesonide 0.5 mg/2 mL Suspension For Nebulization 0.5 mg inhalation BID metoprolol succinate 50 mg Tablet Extended Release 24 Hr 50 mg PO DAILY Qty: 90 2RF clopidogrel 75 mg Tablet 75 mg PO DAILY Qty: 90 2RF aspirin 81 mg Tablet,Delayed Release (Dr/Ec) 81 mg PO DAILY Qty: 90 3RF nitroglycerin 0.4 mg tablet, sublingual 0.4 mg sublingual Q5M PRN (Reason: chest pain) Qty: 30 6RF Rx Instructions: do not exceed 3 doses per episode rosuvastatin 10 mg tablet 20 mg PO BEDTIME Qty: 60 2RF erythromycin 5 mg/gram (0.5 %) ointment 1 applic ophthalmic (eye) TID losartan 25 mg tablet 25 mg PO DAILY Dulcolax (bisacodyl) 5 mg Tablet,Delayed Release (Dr/Ec) 5 mg PO DAILY PRN (Reason: Constipation) escitalopram oxalate 20 mg Tablet 20 mg PO DAILY Milk of Magnesia 400 mg/5 mL Suspension 15 ml PO Q72H PRN (Reason: Constipation) Discharge Orders: Discharge ED (Routine); Ordered 07/13/22 Ordered By: Angel Griffith Referrals: Daniel Leyva DO [Primary Care Provider] - Discharge Diet: Usual diet Discharge Activity: Increase activity as tolerated Patient Instructions: Opioid Safety, Pain Management Activity Restrictions/Additional Instructions: You are seen for epistaxis in the emergency room. Recommend you use Afrin nasal spray 2 sprays in each nostril twice daily for 3 days. Apply the topical antibiotic ointment after using nasal spray for 5 days. Also use antibiotics 1 3 times a day for 5 days. Coding Level of Care Code ED Duplicating [employer] for Camila Ko
[2022-07-13] MEDS: saline nasal spray 44mL Btl 1 SPRAY NASAL (09:23)
[2022-07-13] MEDS: oxymetazoline 0.05% Nasal Spray 15 mL 2 SPRAY NOSTRIL-B (09:24)
[2022-07-13 09:26] LABS: INR 1.02 (0.8-1.2)
[2022-07-13 09:27] LABS: Partial Thromboplastin Time 30.3 SECONDS (23.9-36.7)
[2022-07-13 09:35] LABS: Alanine Aminotransferase 7 U/L (0-41); Albumin Level 3.9 g/dL (3.5-5.2); Alkaline Phosphatase 78 U/L (40-130); Anion Gap 13.5 (5-19); Aspartate Amino Transferase 12 U/L (0-40); Blood Urea Nitrogen 19 mg/dL (8-23); Calcium 9.2 mg/dL (8.5-10.5); Carbon Dioxide 32 mmol/L (22-29); Chloride 101 mmol/L (98-107); Globulin 3.1 g/dL (1.3-4.6); Glucose 84 mg/dL (65-115); Osmolality Calculated 295 mOsm/kg (285-295); Potassium 4.5 mmol/L (3.5-5.1); Sodium 142 mmol/L (136-145); Total Bilirubin 0.2 mg/dL (0.15-1.2)
[2022-07-13 11:32] VITALS: BP 140/58; PULSE 53; RESP 16; O2SAT 100
== END 2022-07-13 11:32 | disposition home or self-care (01) ==
PROVIDERS: Emergency Provider Family Medicine; PCP Internal Medicine
DX: R04.0 Epistaxis (principal); Z79.82 Long term (current) use of aspirin; Z79.4 Long term (current) use of insulin; Z79.84 Long term (current) use of oral hypoglycemic drugs; Z87.891 Personal history of nicotine dependence; I25.10 Atherosclerotic heart disease of native coronary artery without angina pectoris; I50.9 Heart failure, unspecified; E11.9 Type 2 diabetes mellitus without complications; Z85.118 Personal history of other malignant neoplasm of bronchus and lung
CPT/HCPCS: 36415; 80053; 85025; 85610; 85730; 99283

== ENCOUNTER 2022-09-05 03:30 | Inpatient (IN) | payer MEDICARE, MEDICAID, SELFPAY ==
[2022-09-05] VITALS (21 sets, daily range): BP systolic 85–177; BP diastolic 46–117; PULSE 57–108; RESP 16–33; TEMP 36.2–36.8; O2SAT 64–99; BMI 33.7
--- NOTE | 2022-09-05 03:34 | XRR_ITS ---
PROCEDURE INFORMATION: Exam: XR Chest Exam date and time: 09/05/2022 3:42 AM Age: 72 years old Clinical indication: Shortness of breath; Prior surgery; Surgery date: 6+ months; Surgery type: RT lung; Patient HX: Arrival via EMS for resp distress. Severe SOB. History of lung cancer. TECHNIQUE: Imaging protocol: Radiologic exam of the chest. Views: 1 view. COMPARISON: CT chest [facility] [id number] 04/25/2022 9:45 AM FINDINGS: Lungs: Prior partial pneumonectomy results in right-sided hemithorax volume loss. There is enlargement of the pulmonary vascularity. There is thickening of the interstitial markings. Right basilar chronic infiltrates again noted. Severe underlying COPD. Chronic edema likely. Pleural spaces: No pneumothorax. Heart/Mediastinum: The heart is not enlarged. Bones/joints: Unremarkable. XR/XR chest 1V portable [id number] IMPRESSION: No change from 02/15/2022. Numerous chronic findings.
--- NOTE | 2022-09-05 03:35 | W.ED.SOB ---
HPI - SOB/Dyspnea General: Chief Complaint: Shortness of Breath/Dyspnea Stated Complaint: RESP DISTRESS Time Seen by Provider: 09/05/22 03:33 Source: patient and EMS Mode of arrival: EMS Limitations: no limitations History of Present Illness: HPI Narrative: 72-year-old male who has a history of COPD per EMS correction stay start having severe distress roughly 30 to 45 minutes ago he is currently on a CPAP with EMS he is 70% he states that he was 50% when they arrived he is in distress with tachypnea able speak 1-2 word sentences no known cough or fever he is DNR but states he needs to be unabated he would like to be in abated Associated symptoms: Deny abdominal pain, chest pain, fever(s), nausea or vomiting Review of Systems Const: Denies: fever(s) or chills ENMT: Denies: throat pain or dental pain Card: Denies: chest pain Resp: Reports: dyspnea GI: Denies: abdominal pain, nausea, vomiting or diarrhea Musc: Denies: neck pain or back pain Skin/Breast: Denies: rash Neuro: Denies: headache(s) PFSH ED PFSH: Medical History Atherosclerosis of coronary artery 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 Hwang -[place] Hx of cholecystectomy Hx of eye surgery bilat-Dr. Navarrete did right and Dr. Perez in [place] Hx of kyphoplasty 07/05/[address] Powell Status post colonoscopy (05/11/20) normal Family History Brother Cancer Diabetes Heart disease Social History Smoking and tobacco status: former smoker (smoked x 40 years) Quit status (tobacco): has quit using tobacco Year quit tobacco: 2016 - PPD x 45 Years Former quit date comment: Started at age 17 Second hand smoke exposure: No Smoking risk assessment/counseling performed?: Yes Alcohol intake: former Year of sobriety/quit date alcohol: 2014 Former alcohol use details: beer Substance/Drug Use: never Lives independently: Yes Household members: none Marital status: service: No Current occupational status: disabled Do you think of yourself as: Straight/Heterosexual Current gender identity: Male Physical Exam Const: COMMON NORMALS: patient oriented x3 GENERAL APPEARANCE: in distress and ill appearing HENMT: COMMON NORMALS: normocephalic and atraumatic HEAD & SCALP: normocephalic and atraumatic Eye: COMMON NORMALS: Equal, round and reactive pupils present and conjunctivae normal CONJUNCTIVA: Yes conjunctivae normal PUPIL: Yes Equal, round and reactive pupils present Neck/C-Spine: COMMON NORMALS: full ROM and supple Chest: COMMONS NORMALS: normal inspection of the chest and normal palpation of entire chest wall Resp: EFFORT & INSPECTION: Yes tachypneic, Yes respiratory distress and Yes labored AUSCULTATION: diminished lung sounds Cardio: COMMON NORMALS: regular rate, regular rhythm and No murmurs present (Cardio) RATE: regular rate RHYTHM: regular rhythm GI: COMMON NORMALS: Normal to inspection, nondistended, normoactive bowel sounds present, Soft to palpation, non-tender and no masses PALPATION: Yes Soft to palpation Extremity: COMMON NORMALS: normal to inspection and full ROM Neuro: COMMON NORMALS: patient oriented x3, moves all extremities and no focal motor deficits Psych: COMMON NORMALS: mental status grossly normal, Normal thought process present and cooperative THOUGHT PROCESS: Normal thought process present Skin: COMMON NORMALS: no rashes or lesions noted and no wounds GENERAL SKIN EXAM: no rashes or lesions noted Course Vital Signs: Vital signs: Vital Signs Temperature 97.2 F L 09/05/22 03:34 Pulse Rate 100 09/05/22 04:34 Respiratory Rate 27 H 09/05/22 04:34 Blood Pressure 124/76 09/05/22 04:23 Pulse Oximetry 95 09/05/22 04:34 Oxygen Delivery Me thod BiPAP 09/05/22 04:34 Fraction of Inspir ed Oxygen 50 09/05/22 04:34 MDM - SOB/Dyspnea Medical Decision Making Patient presents here with looks like a likely right lower lobe pneumonia along with COPD exacerbation with hypercapnia he is much improved here on BiPAP is CO2 is improved greatly and he is nonlabored currently we will start him on antibiotic spoke to the hospitalist will admit at this time. Medical Records I reviewed the patient's medical records. Lab Data I reviewed the patient's lab results. 09/05/22 03:38 09/05/22 03:38 Labs/Radiology: Laboratory Results WBC 18.4 10^3/uL (4.0-10.0) H 09/05/22 03:38 RBC 4.17 10^6/uL (4.1-5.3) 09/05/22 03:38 Hgb 11.1 g/dL (11.7-16.6) L 09/05/22 03:38 Hct 37.1 % (42.0-52.0) L 09/05/22 03:38 MCV 89.0 fl (80-94) 09/05/22 03:38 MCH 26.6 pg (28.0-34.0) L 09/05/22 03:38 MCHC 29.9 g/dL (30.0-36.0) L 09/05/22 03:38 RDW 13.3 % (12.1-15.1) 09/05/22 03:38 Plt Count 315 10^3/cmm (130-400) 09/05/22 03:38 MPV 10.1 fL (7.4-10.4) 09/05/22 03:38 Neut % (Auto) 58.1 % 09/05/22 03:38 Lymph % (Auto) 28.8 % 09/05/22 03:38 Garden % (Auto) 9.0 % 09/05/22 03:38 Eos % (Auto) 3.1 % 09/05/22 03:38 Baso % (Auto) 0.5 % 09/05/22 03:38 Neut # (Auto) 10.67 10^3/uL (1.8-7.7) H 09/05/22 03:38 Lymph # (Auto) 5.3 10^3/uL (0.8-4.8) H 09/05/22 03:38 Garden # (Auto) 1.7 10^3/uL (0.2-0.9) H 09/05/22 03:38 Eos # (Auto) 0.6 10^3/uL (0.0-0.8) 09/05/22 03:38 Baso # (Auto) 0.1 10^3/uL (0.0-0.1) 09/05/22 03:38 Nucleated RBC % (auto) 0 % 09/05/22 03:38 Nucleated RBCs # 0.0 /100WBC 09/05/22 03:38 PT 14.00 SECONDS (12.1-14.9) 09/05/22 03:38 INR 1.04 (0.8-1.2) 09/05/22 03:38 Specimen Type Arterial 09/05/22 04:37 Sample Site Brachial, left 09/05/22 04:37 ABG pH 7.31 (7.35-7.45) L 09/05/22 04:37 ABG pCO2 62.7 mmHg (35-45) H* 09/05/22 04:37 ABG pO2 92.1 mmHg (80.0-100.0) 09/05/22 04:37 ABG HCO3 31.8 mmol/L (22-26) H 09/05/22 04:37 ABG Base Excess 4.2 mmol/L (-2.0-2.0) H 09/05/22 04:37 Singh Test Pos 09/05/22 04:37 Hematocrit 33.8 % (42-52) L 09/05/22 04:37 Hgb O2 Saturation 95.9 % (95-100) 09/05/22 03:34 Carboxyhemoglobin 1.3 %THgb (0.4-20.1) 09/05/22 03:34 Methemoglobin 0.5 % (0.4-1.5) 09/05/22 03:34 Total Hemoglobin 11.5 g/dL (14-18) L 09/05/22 03:34 O2 Delivery Device Bipap 09/05/22 04:37 FiO2 50.0 % 09/05/22 04:37 PEEP 10.0 cmH20 09/05/22 04:37 Kennel Hand ID Tunca2 09/05/22 04:37 Sodium 137 mmol/L (136-145) 09/05/22 03:38 Potassium 4.7 mmol/L (3.5-5.1) 09/05/22 03:38 Chloride 97 mmol/L (98-107) L 09/05/22 03:38 Carbon Dioxide 31 mmol/L (22-29) H 09/05/22 03:38 Anion Gap 13.7 (5-19) 09/05/22 03:38 BUN 16 mg/dL (8-23) 09/05/22 03:38 Creatinine 0.8 mg/dL (0.7-1.2) 09/05/22 03:38 GFR Calculation Not Reportable 09/05/22 03:38 Glucose 306 mg/dL (65-115) H 09/05/22 03:38 Calculated Osmolality 297 mOsm/kg (285-295) H 09/05/22 03:38 Calcium 9.3 mg/dL (8.5-10.5) 09/05/22 03:38 Total Bilirubin 0.3 mg/dL (0.15-1.2) 09/05/22 03:38 AST 18 U/L (0-40) 09/05/22 03:38 ALT 12 U/L (0-41) 09/05/22 03:38 Alkaline Phosphatase 111 U/L (40-130) 09/05/22 03:38 NT-Pro-B Natriuret Pep 961 pg/mL (0-125) H 09/05/22 03:38 Total Protein 7.3 g/dL (6.6-8.7) 09/05/22 03:38 Albumin 3.9 g/dL (3.5-5.2) 09/05/22 03:38 Globulin 3.4 g/dL (1.3-4.6) 09/05/22 03:38 SARS-CoV-2 Ag (Rapid) negative (Negative) 09/05/22 03:50 EKG Data EKG 1: I personally reviewed and interpreted this EKG as follows: EKG Interpretation Date: 09/05/22 EKG interpretation time: 03:47 Interpretation: sinus tach hr 109 qrs 94 qtc 366 Critical Care Time Critical Care Time: Critical Care Time: Yes Total Critical Care Time: 50 Attestation: The high probability of a clinically significant, sudden or life threatening deterioration of the patient's resp system(s) required my full and direct attention, intervention and personal management. The critical care time is as shown. This time is in addition to time spent performing any reported procedures but includes the following: [x] Data and vital sign review and interpretation [x] Patient assessment, examination and intervention [x] Documentation [x] Medication orders and management Discharge Plan Discharge Patient Disposition: Admitted As Inpatient Clinical Impression: Acute exacerbation of chronic obstructive airways disease, Community acquired pneumonia, Acute and chronic respiratory failure with hypercapnia Condition: Stable Prescriptions: No Action Calamine Medicated 1-8 % lotion 1 applic topical TID PRN (Reason: itching) Qty: 177 6RF Trelegy Ellipta 100-62.5-25 mcg blister with device 1 inh inhalation DAILY Qty: 60 6RF polyethylene glycol 3350 17 gram powder in packet 17 g PO DAILY ferrous sulfate 325 mg (65 mg iron) tablet 325 mg PO DAILY Fleet Enema 19-7 gram/118 mL enema 118 ml GA DAILY PRN (Reason: Constipation) Lubricant Eye (PG-PEG 400) 0.4-0.3 % drops 1 drp ophthalmic (eye) .COMPLEX Rx Instructions: 1 drp into right eye four times a day for dry eye finasteride 5 mg tablet 5 mg PO DAILY acetaminophen 325 mg tablet 325 mg PO QID PRN (Reason: Pain) insulin aspart U-100 [Novolog U-100 Insulin aspart] 100 unit/mL solution 5 unit SUBCUT .Sliding scale Tresiba FlexTouch U-100 100 unit/mL (3 mL) insulin pen 25 unit SUBCUT .HS furosemide 40 mg tablet 20 mg PO DAILY@0800 PRN (Reason: Edema) Rx Instructions: 40mg extra PRN metformin 500 mg tablet 500 mg PO BID potassium chloride 10 mEq capsule, extended release 10 meq PO DAILY Qty: 30 0RF alendronate 70 mg Tablet 70 mg PO Q7D Rx Instructions: ON SATURDAY neomycin-polymyxin B-dexameth [Maxitrol] 3.5 mg/g-10,000 unit/g-0.1 % ointment See Rx Instructions .ROUTE .COMPLEX Rx Instructions: 0.25 inch in left eye one time a day cholecalciferol (vitamin D3) [Vitamin D3] 25 mcg (1,000 unit) Tablet 25 mcg PO DAILY ipratropium-albuterol 0.5 mg-3 mg(2.5 mg base)/3 mL Solution For Nebulization 3 ml INHALATION TID albuterol sulfate 2.5 mg /3 mL (0.083 %) solution for nebulization 2.5 mg inhalation Q4H PRN (Reason: Shortness Of Breath) morphine 30 mg tablet extended release 30 mg PO TID@07,15,23 guaifenesin 100 mg/5 mL Liquid 100 mg PO Q4H PRN (Reason: Cough) budesonide 0.5 mg/2 mL Suspension For Nebulization 0.5 mg inhalation BID metoprolol succinate 50 mg Tablet Extended Release 24 Hr 50 mg PO DAILY Qty: 90 2RF clopidogrel 75 mg Tablet 75 mg PO DAILY Qty: 90 2RF aspirin 81 mg Tablet,Delayed Release (Dr/Ec) 81 mg PO DAILY Qty: 90 3RF nitroglycerin 0.4 mg tablet, sublingual 0.4 mg sublingual Q5M PRN (Reason: chest pain) Qty: 30 6RF Rx Instructions: do not exceed 3 doses per episode rosuvastatin 10 mg tablet 20 mg PO BEDTIME Qty: 60 2RF erythromycin 5 mg/gram (0.5 %) ointment 1 applic ophthalmic (eye) TID losartan 25 mg tablet 25 mg PO DAILY Dulcolax (bisacodyl) 5 mg Tablet,Delayed Release (Dr/Ec) 5 mg PO DAILY PRN (Reason: Constipation) escitalopram oxalate 20 mg Tablet 20 mg PO DAILY Milk of Magnesia 400 mg/5 mL Suspension 15 ml PO Q72H PRN (Reason: Constipation) mupirocin 2 % ointment 1 applic topical BID Qty: 15 0RF Rx Instructions: Apply to nares gently with a Q-tip twice daily after nasal spray Referrals: Daniel Leyva DO [Primary Care Provider] - Coding Level of Care Code ED Commander Internal Affairs for [facility] Stefani
[2022-09-05] MEDS: dexamethasone 10 mg/mL INJ IVP (03:42)
[2022-09-05] MEDS: magnesium sulfate premix 2 GM/50 ML PIGGYBACK IV (03:43)
[2022-09-05 03:44] LABS: Basophils # 0.1 10^3/uL (0.0-0.1); Basophils % 0.5 %; Eosinophils # 0.6 10^3/uL (0.0-0.8); Eosinophils % 3.1 %; Hematocrit 37.1 % (42.0-52.0); Hemoglobin 11.1 g/dL (11.7-16.6); Lymphocytes # 5.3 10^3/uL (0.8-4.8); Lymphocytes % 28.8 %; Mean Corpuscular HGB Conc 29.9 g/dL (30.0-36.0); Mean Corpuscular Hemoglobin 26.6 pg (28.0-34.0); Mean Platelet Volume 10.1 fL (7.4-10.4); Monocytes # 1.7 10^3/uL (0.2-0.9); Neutrophils # 10.67 10^3/uL (1.8-7.7); Neutrophils % 58.1 %; Nucleated Red Blood Cells % 0 %; Platelet Count 315 10^3/cmm (130-400); Red Blood Count 4.17 10^6/uL (4.1-5.3); Red Cell Distribution Width 13.3 % (12.1-15.1); White Blood Count 18.4 10^3/uL (4.0-10.0)
--- NOTE | 2022-09-05 03:47 | ECG_ITS ---
[facility] Test Date: 2022-09-05 Pat Name: Moses Cardoza Department: Room: 275 Gender: Male Training Representative: : 1950 Requested By: Beverly You Order Number: [id number] Rafiq MD: Tim Smith M.D. Measurements Intervals [place] Rate: 109 P: 90 WA: 152 QRS: 71 QRSD: 94 T: 130 QT: 302 QTc: 408 Interpretive Statements SINUS TACHYCARDIA NONSPECIFIC T-WAVE ABNORMALITY ABNORMAL RHYTHM ECG Compared to ECG 02/16/2022 00:42:14 T-wave abnormality now present Sinus rhythm no longer present Myocardial infarct finding no longer present Electronically Signed On 09-05-2022 22:21:27 CDT by Tim Smith M.D. [id number]
[2022-09-05 03:54] LABS: Arterial Blood Gas Hematocrit 35.2 % (42-52); Base Excess ABG 1.6 mmol/L (-2.0-2.0); Blood Gas Allen Test Pos; Blood Gas Sample Site Brachial, right; Blood Gas Sample Type Arterial; Carboxyhemoglobin 1.3 %THgb (0.4-20.1); HCO3 ABG 31.5 mmol/L (22-26); HGB O2 Sat 95.9 % (95-100); Methemoglobin 0.5 % (0.4-1.5); Oxygen Device BIPAP; Total Hemoglobin 11.5 g/dL (14-18)
[2022-09-05 03:54] LABS: INR 1.04 (0.8-1.2)
[2022-09-05 03:56] LABS: ABG PCO2 80.2 mmHg (35-45)
[2022-09-05 04:08] LABS: Alanine Aminotransferase 12 U/L (0-41); Albumin Level 3.9 g/dL (3.5-5.2); Alkaline Phosphatase 111 U/L (40-130); Anion Gap 13.7 (5-19); Aspartate Amino Transferase 18 U/L (0-40); Blood Urea Nitrogen 16 mg/dL (8-23); Calcium 9.3 mg/dL (8.5-10.5); Carbon Dioxide 31 mmol/L (22-29); Chloride 97 mmol/L (98-107); Globulin 3.4 g/dL (1.3-4.6); Glucose 306 mg/dL (65-115); NT Pro B Type Natriuretic Pept 961 pg/mL (0-125); Osmolality Calculated 297 mOsm/kg (285-295); Potassium 4.7 mmol/L (3.5-5.1); Sodium 137 mmol/L (136-145); Total Bilirubin 0.3 mg/dL (0.15-1.2); Total Protein 7.3 g/dL (6.6-8.7)
[2022-09-05 04:08] LABS: SARS Covid-2 Antigen negative (Negative)
[2022-09-05] MEDS: albuterol 2.5 mg/3 mL Neb INHALATION (04:19)
[2022-09-05] MEDS: piperacillin-tazobactam 3.375 GM in sodium chloride 0.9% (plus) 50 ML IV ×3 (04:20→19:55)
[2022-09-05] MEDS: ipratropium 0.5 mg/2.5 mL Neb INHALATION (04:20)
--- NOTE | 2022-09-05 04:48 | P.HP_ITS ---
Providers/Chief Complaint Primary Care Provider: Daniel Leyva DO Chief Complaint: RESP DISTRESS History of Present Illness Moses Cardoza is a 72 year old male with past medical history of COPD, diabetes, GERD, lung cancer status postresection, pulmonary emboli, type 2 diabetes mellitus, chronically on 5 to 6 L of oxygen at baseline, combined systolic diastolic heart failure presented to the hospital today from the retirement due to respiratory distress. He states that he requested to go to the hospital because he could not breathe. He has a CPAP at nighttime. On arrival he was on CPAP, retirement and saturating 70%. He was tachypneic and was having conversational dyspnea only was able to speak 1-2 word sentences. Denies cough, fever, abdominal pain, chest pain, nausea, vomiting. He is DNR however would like to be intubated if needed to be. Initial gas on arrival 7./84. He was immediately placed on BiPAP. Blood pressure 124/76, respiratory 27, pulse 100, temperature 97.2. Chest x-ray obtained shows possible right lower lobe pneumonia. Patient was given steroids, magnesium in ER. Started on antibiotics as well. When seen in room 10 he is resting comfortably on BiPAP. No conversational dyspnea at this time starting to feel better. Able to answer questions however somewhat of a poor historian. Denies any other symptoms at this time except for shortness of breath. Patient does not really provide any more information. He is alert and oriented x3 at this time. Knows where he is knows whats going on knows the president and knows the date. He is chronically on 5 to 6 L of oxygen at home. Medications/Allergies Home Medications Medication Instructions Recorded Confirmed Last Taken Type alendronate 70 mg tablet 70 mg PO Q7D 04/16/19 07/13/22 07/11/22 History neomycin 3.5 mg/g-polymyxin B See Rx Instructions .Route .COMPLEX 05/25/21 07/13/22 07/12/22 History 10,000 unit/g-dexameth 0.1 % eye oint (Maxitrol) cholecalciferol (vitamin D3) 25 25 mcg PO DAILY 11/15/21 07/13/22 07/12/22 History mcg (1,000 unit) tablet (Vitamin D3) ferrous sulfate 325 mg (65 mg 325 mg PO DAILY 01/18/22 07/13/22 07/12/22 History iron) tablet peg 400-propylene glycol 0.4 %-0.3 1 drp ophthalmic (eye) .COMPLEX 01/18/22 07/13/22 07/12/22 History % eye drops (Lubricant Eye (PG-PEG 400)) polyethylene glycol 3350 17 gram 17 g PO DAILY 01/18/22 07/13/22 07/12/22 History oral powder packet sodium phosphates 19 gram-7 118 ml [place] DAILY PRN Constipation 01/18/22 07/13/22 3 Months Ago History gram/118 mL enema (Fleet Enema) ~01/24/22 albuterol sulfate 2.5 mg/3 mL 2.5 mg inhalation Q4H PRN 02/16/22 07/13/22 Unknown History (0.083 %) solution for nebulization Shortness Of Breath budesonide 0.5 mg/2 mL suspension 0.5 mg inhalation BID 02/16/22 07/13/2206/15 History for nebulization guaifenesin 100 mg/5 mL oral liquid 100 mg PO Q4H PRN Cough 02/16/22 07/13/22 2 Weeks Ago History ~04/12/22 ipratropium 0.5 mg-albuterol 3 mg 3 ml inhalation TID 02/16/22 07/13/22 07/12/22 History (2.5 mg base)/3 mL nebulization soln morphine 30 mg tablet,extended 30 mg PO TID@07,15,23 02/16/22 07/13/22 07/12/22 History release aspirin 81 mg tablet,delayed 81 mg PO DAILY #90 tabs 02/20/22 07/13/22 04/26/22 Rx release clopidogrel 75 mg tablet 75 mg PO DAILY #90 tabs 02/20/22 07/13/22 07/12/22 Rx metoprolol succinate 50 mg 50 mg PO DAILY #90 tabs 02/20/22 07/13/22 07/12/22 Rx tablet,extended release 24 hr nitroglycerin 0.4 mg sublingual 0.4 mg sublingual Q5M PRN chest 02/20/22 07/13/22 Unknown Rx tablet pain #30 tabs rosuvastatin 10 mg tablet 20 mg PO BEDTIME #60 tabs 02/20/22 07/13/22 07/12/22 Rx acetaminophen 325 mg tablet 325 mg PO QID PRN Pain 04/17/22 07/13/22 1 Week Ago History ~04/19/22 finasteride 5 mg tablet 5 mg PO DAILY 04/17/22 07/13/22 07/12/22 History furosemide 40 mg tablet 20 mg PO DAILY@0800 PRN Edema 04/17/22 07/13/22 07/12/22 History insulin aspart U-100 100 unit/mL 5 unit SUBCUT .Sliding scale 04/17/22 07/13/22 07/12/22 History subcutaneous solution (Novolog U-100 Insulin aspart) insulin degludec 100 unit/mL (3 25 unit SUBCUT .HS 04/17/22 07/13/22 07/12/22 History mL) subcutaneous pen (Tresiba FlexTouch U-100 insulin) metformin 500 mg tablet 500 mg PO BID 05/10/22 07/13/22 07/12/22 History potassium chloride 10 mEq 10 meq PO DAILY #30 caps 05/10/22 07/13/22 07/12/22 Rx capsule,extended release fluticasone fur. 100 mcg-umeclid 1 inh inhalation DAILY #60 ea 05/24/22 07/13/22 Unknown Rx 62.5 mcg-vilant 25 mcg inhalat.powder (Trelegy Ellipta) pramoxine-calamine 1 %-8 % lotion 1 applic topical TID PRN itching 05/24/22 07/13/22 Unknown Rx (Calamine Medicated) #177 mL bisacodyl 5 mg tablet,delayed 5 mg PO DAILY PRN Constipation 07/13/22 07/13/22 Unknown History release (Dulcolax (bisacodyl)) erythromycin 5 mg/gram (0.5 %) eye 1 applic ophthalmic (eye) TID 07/13/22 07/13/22 07/12/22 History ointment (3.5 gram tube) escitalopram oxalate 20 mg tablet 20 mg PO DAILY 07/13/22 07/13/22 07/12/22 History losartan 25 mg tablet 25 mg PO DAILY 07/13/22 07/13/22 07/12/22 History magnesium hydroxide 400 mg/5 mL 15 ml PO Q72H PRN Constipation 07/13/22 07/13/22 Unknown History oral suspension (Milk of Magnroberta) mupirocin 2 % topical ointment 1 applic topical BID #15 grams 07/13/22 Unknown Rx Allergies Allergy/AdvReac Type Severity Reaction Status Date / Time tree and shrub pollen Allergy ADR-Headach Verified 07/05/22 15:53 e PFSH Acute PFSH: Medical History Atherosclerosis of coronary artery 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 Hwang -[place] Hx of cholecystectomy Hx of eye surgery bilat-Dr. Navarrete did right and Dr. Perez in [place] Hx of kyphoplasty 07/05/[address] Powell Status post colonoscopy (05/11/20) normal Family History Brother Cancer Diabetes Heart disease Social History Smoking and tobacco status: former smoker (smoked x 40 years) Quit status (tobacco): has quit using tobacco Year quit tobacco: 2015 PPD x 45 Years Former quit date comment: Started at age 17 Second hand smoke exposure: No Smoking risk assessment/counseling performed?: Yes Alcohol intake: former Year of sobriety/quit date alcohol: 2013 Former alcohol use details: beer Substance/Drug Use: never Lives independently: Yes Household members: none Marital status: service: No Current occupational status: disabled Do you think of yourself as: Straight/Heterosexual Current gender identity: Male Vitals/I&O/Wt Last Vital Signs Temp 97.2 F L 09/05/22 03:34 Pulse 100 09/05/22 04:34 Resp 27 H 09/05/22 04:34 BP 124/76 09/05/22 04:23 Pulse Ox 95 09/05/22 04:34 O2 Del Method BiPAP 09/05/22 04:34 FiO2 50 09/05/22 04:34 Weight last 48 hrs Weight 106.594 kg Physical Exam Narrative: General: Alert oriented x3, patient seen laying in bed on BiPAP. No acute respiratory distress at this time. Mild use of accessory muscles however appears comfortable. HEENT: Normocephalic, atraumatic, EOMI, Cardio: Regular rate rhythm, normal S1-S2 Respiratory: Diminished anterior lung acuña, expiratory wheezes bilaterally posterior lung acuña. Diminished at right base slightly. 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 Started on ceftriaxone, azithromycin ? Check procalcitonin ? Continue BiPAP at this time ? Will require home oxygen evaluation at discharge ? ABG has improved significantly after being placed on BiPAP ? Day team to complete med rec. ? DuoNeb every 4 hours scheduled ? prednisone 40 oral twice daily. ? Budesonide twice daily inhalation ? Low-dose intensity sliding scale insulin ? Hold metformin ? 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 Telehealth technology used during the visit includes video and audio. This patient encounter is appropriate and reasonable under the circumstances given the patient?s particular presentation at this time. The patient has been advised of the potential risks and limitations of this mode of treatment (including but not limited to the absence of in-person examination at this time) and has agreed to be treated by an off-site physician for this visit. If deemed clinically necessary from this telehealth visit, or if condition or consent for telehealth visit changes, an in-person visit will be arranged. For this encounter, total time for the origination of telehealth care on this date is as shown. 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
[2022-09-05 04:54] LABS: ABG PH Result 7.31 (7.35-7.45); Arterial Blood Gas Hematocrit 33.8 % (42-52); Base Excess ABG 4.2 mmol/L (-2.0-2.0); Blood Gas Allen Test Pos; Blood Gas Sample Site Brachial, left; Blood Gas Sample Type Arterial; HCO3 ABG 31.8 mmol/L (22-26); Oxygen Device BIPAP; PO2 ABG 92.1 mmHg (80.0-100.0)
[2022-09-05] MEDS: vancomycin 1,000 MG in sodium chloride 0.9% 250 ML 250 MG IV (04:54)
[2022-09-05 04:56] LABS: ABG PCO2 62.7 mmHg (35-45)
--- NOTE | 2022-09-05 05:29 | PC.NURSE ---
Report called to GORDY Rain on Med-Surg. Pt being transferred to room 275.
[2022-09-05 06:08] LABS: Procalcitonin 0.03 ng/mL (0-0.5)
[2022-09-05 06:21] LABS: Glucose Point of Care 258 mg/dL (70-110)
[2022-09-05] MEDS: budesonide 0.5 mg/2 mL Neb INHALATION ×2 (07:45→19:42)
[2022-09-05] MEDS: ipratropium-albuterol 3 mL Neb INHALATION ×4 (07:45→19:42)
[2022-09-05] MEDS: insulin lispro 100 unit/1 mL SUBCUT ×4 (08:40→20:57)
--- NOTE | 2022-09-05 08:42 | PC.PHAR ---
Addendum entered by Vero Michelle 09/05/22 13:09: raiza from [facility] called and states she couldnt get the fax to go through raiza ran the mar up to the er from [facility] medications entered are meds that were on the pts mar Addendum entered by Kiley Daniels 09/05/22 10:51: HAVE CALLED [facility] FOR MAR 3 TIMES- 9:15 AND 10:15 Original Note: WAITING ON A COMPLETE MAR FROM [facility] TO COMPLETE MED REC
--- NOTE | 2022-09-05 08:58 | PM.MISC ---
Miscellaneous Note Note: Overnight HPI vitals and labs have been reviewed,patient SOB has improved,currently doing well on BIPAP.
[2022-09-05 11:09] LABS: Adenovirus Not Detected (NOT DETECT); Chlamydia Pneumoniae Not Detected (NOT DETECT); Coronavirus 229E,HKU1,NL63,OC4 Not Detected (NOT DETECT); Human Metapneumovirus Not Detected (NOT DETECT); Human Rhinovirus/Enterovirus Not Detected (NOT DETECT); Influenza A Not Detected (NOT DETECT); Influenza A H1 Not Detected (NOT DETECT); Influenza A H1-2009 Not Detected (NOT DETECT); Influenza A H3 Not Detected (NOT DETECT); Influenza B Not Detected (NOT DETECT); Mycoplasma Pneumoniae Not Detected (NOT DETECT); Parainfluenza Virus Type 1 Not Detected (NOT DETECT); Parainfluenza Virus Type 2 Not Detected (NOT DETECT); Parainfluenza Virus Type 3 Detected (NOT DETECT); Parainfluenza Virus Type 4 Not Detected (NOT DETECT); Respiratory Syncytial Virus A Not Detected (NOT DETECT); Respiratory Syncytial Virus B Not Detected (NOT DETECT); SARS-COV-2 Not Detected (NOT DETECT)
[2022-09-05 11:12] LABS: Glucose Point of Care 203 mg/dL (70-110)
[2022-09-05 11:12] LABS: Glucose Point of Care 202 mg/dL (70-110)
[2022-09-05 16:53] LABS: Glucose Point of Care 232 mg/dL (70-110)
[2022-09-05] MEDS: morphine 4 mg/mL SDV 1 mL 1 MG IVP (16:56)
[2022-09-05] MEDS: vancomycin 1,250 MG/250 ML PIGGYBACK 250 MG IV (17:00)
[2022-09-05] MEDS: predniSONE 20 mg Tablet 40 MG PO (17:03)
[2022-09-05 20:25] LABS: Glucose Point of Care 194 mg/dL (70-110)
[2022-09-05] MEDS: atorvastatin 40 mg Tablet 80 MG PO (20:56)
[2022-09-05] MEDS: morphine ER (12 HR) 30 mg tablet PO (20:56)
[2022-09-06] VITALS (16 sets, daily range): BP systolic 106–164; BP diastolic 65–72; PULSE 57–99; RESP 15–25; TEMP 36.3–37; O2SAT 93–100
[2022-09-06] MEDS: piperacillin-tazobactam 3.375 GM in sodium chloride 0.9% (plus) 50 ML IV ×3 (04:18→20:30)
[2022-09-06] MEDS: vancomycin 1,250 MG/250 ML PIGGYBACK 250 MG IV ×2 (04:37→17:14)
[2022-09-06 05:20] LABS: Hematocrit 32.6 % (42.0-52.0); Hemoglobin 9.9 g/dL (11.7-16.6); Lymphocytes # 0.5 10^3/uL (0.8-4.8); Lymphocytes % 6.7 %; Mean Corpuscular HGB Conc 30.4 g/dL (30.0-36.0); Mean Corpuscular Hemoglobin 26.8 pg (28.0-34.0); Mean Corpuscular Volume 88.1 fl (80-94); Mean Platelet Volume 10.1 fL (7.4-10.4); Monocytes # 0.4 10^3/uL (0.2-0.9); Monocytes % 5.7 %; Neutrophils # 6.24 10^3/uL (1.8-7.7); Neutrophils % 87.3 %; Nucleated Red Blood Cells % 0 %; Platelet Count 184 10^3/cmm (130-400); Red Cell Distribution Width 13.4 % (12.1-15.1); White Blood Count 7.2 10^3/uL (4.0-10.0)
[2022-09-06 05:40] LABS: Alanine Aminotransferase 14 U/L (0-41); Albumin Level 3.6 g/dL (3.5-5.2); Alkaline Phosphatase 89 U/L (40-130); Anion Gap 14.5 (5-19); Aspartate Amino Transferase 18 U/L (0-40); Blood Urea Nitrogen 25 mg/dL (8-23); Calcium 9.4 mg/dL (8.5-10.5); Carbon Dioxide 29 mmol/L (22-29); Chloride 99 mmol/L (98-107); Globulin 3.2 g/dL (1.3-4.6); Glucose 214 mg/dL (65-115); Magnesium 2.1 mg/dL (1.7-2.3); Osmolality Calculated 297 mOsm/kg (285-295); Potassium 4.5 mmol/L (3.5-5.1); Sodium 138 mmol/L (136-145); Total Bilirubin 0.3 mg/dL (0.15-1.2); Total Protein 6.8 g/dL (6.6-8.7)
[2022-09-06 05:48] LABS: Slide Review Slide Review Perform
[2022-09-06 06:12] LABS: Glucose Point of Care 232 mg/dL (70-110)
[2022-09-06] MEDS: pantoprazole DR 40 mg Tablet PO (06:17)
[2022-09-06] MEDS: escitalopram 10 mg Tablet 20 MG PO (06:17)
[2022-09-06] MEDS: budesonide 0.5 mg/2 mL Neb INHALATION ×2 (07:16→19:41)
[2022-09-06] MEDS: ipratropium-albuterol 3 mL Neb INHALATION ×4 (07:16→19:41)
[2022-09-06] MEDS: insulin lispro 100 unit/1 mL SUBCUT ×4 (08:04→21:47)
[2022-09-06] MEDS: predniSONE 20 mg Tablet 40 MG PO ×2 (08:05→17:14)
[2022-09-06] MEDS: aspirin 81 mg EC Tablet PO (08:05)
[2022-09-06] MEDS: clopidogrel 75 mg Tablet PO (08:05)
[2022-09-06] MEDS: morphine ER (12 HR) 30 mg tablet PO ×2 (08:07→20:30)
--- NOTE | 2022-09-06 11:02 | PC.CHAP ---
Pastoral Care Encounter/Spiritual Assessment Type of Contact [] Declined product development coordinator visit [] Patient/Family/Request visit [] Outpatient visit [] Follow-up visit [] Physician referral [] Code/Alert [] Routine visit [] Staff referral [] Actively dying [] Patient sleeping [] Family support [] [] Out of room [] Palliative care [] [] Receiving care in room [] Pre-surgical visit [] Trauma [] Long length of stay [] ICU visit [x] Other: Isolation Relational/Emotional Strength [] Patient feels connected with others/family/visitors/staff [] Distress [] Loneliness/isolation [] Abandonment Spirituality of Patient [] Person of Rae [] Attends Zoroastrianism of their Rae [] Believes in Prayer [] Reads Bible or Evangelical materials [] There are Spiritual issues to be addressed Mortgage Specialist Interventions [] Prayer [] Active listening [] Non-anxious presence [] Spiritual/emotional support [] Crisis/trauma care [] Spiritual counseling [] Bereavement support [] Provided bereavement packet [] Provided Bible/devotional materials [] Provided toy/stuffed animal, coloring book to patient or family member [] Provided Communion [] Anointing/[place] [] Salvation [] Completed spiritual assessment [] Other: Impact on Illness or Injury [] Angry [] Fearful [] Anxious [] Often cries [] Exhaustion [] Unable to work [] Unable to attend gnosticism [] Unable to walk/stand [] Unable to read [] Unable to drive [] Unable to eat/drink [] Unable to sleep [] Unable to be with family [] Patient intubated [] Other: Summary Isolation Time spent with patient 5 mins
[2022-09-06 11:18] LABS: Glucose Point of Care 251 mg/dL (70-110)
[2022-09-06] MEDS: LORazepam 2 mg/mL INJ 1 mL 1 MG IVP (15:47)
[2022-09-06 16:55] LABS: Glucose Point of Care 338 mg/dL (70-110)
[2022-09-06 17:06] LABS: Vancomycin Trough 12.6 ug/mL (10-15)
--- NOTE | 2022-09-06 17:44 | PC.PHAR ---
PHARMACY TO DOSE CONSULTATION - VANCOMYCIN UPDATE Patient's trough level came back at 12.6 ug/mL. His renal function has stayed consistent for the past several days so we will continue the dose/frequency as it is at 1250mg every 12 hours. Will continue to follow this patient and make adjustments as necessary. Please let us know if there is anything else we can do. Thanks, Lanre Borges, Pharm.D
--- NOTE | 2022-09-06 18:07 | P.PN_ITS ---
Subjective Subjective: Patient was seen and examined this morning shortness of breath has improved, currently he is parainfluenza positive.Comfortable on BiPAP,. Medications: Medication Review Details: Generic Name Dose Route Start Last Admin Trade Name Paz PRN Reason Stop Dose Admin Albuterol/Ipratrop ium 3 ml 09/05/22 08:00 09/06/22 15:05 Ipratropium-Albu terol 3 Ml Neb INHALATION 3 ml QID.RESPIRATORY S CH Administration Aspirin 81 mg 09/06/22 09:00 09/06/22 08:05 Aspirin 81 Mg Ec Tablet PO 81 mg DAILY CÉSAR Administration Atorvastatin Calci um 80 mg 09/05/22 21:00 09/05/22 20:56 Atorvastatin 40 Mg Tablet PO 80 mg BEDTIME CÉSAR Administration Budesonide 0.5 mg 09/05/22 08:00 09/06/22 07:16 Budesonide 0.5 M g/2 Ml Neb INHALATION 0.5 mg BID.RESPIRATORY S CH Administration Clopidogrel Bisulf ate 75 mg 09/06/22 09:00 09/06/22 08:05 Clopidogrel 75 M g Tablet PO 75 mg DAILY CÉSAR Administration Escitalopram Oxala te 20 mg 09/06/22 07:00 09/06/22 06:17 Escitalopram 10 Mg Tablet PO 20 mg DAILY@07 CÉSAR Administration Piperacillin Sod/T azobactam 50 mls @ 12.5 mls /hr 09/05/22 10:30 09/06/22 17:13 Sod 3.375 gm/ So dium Chloride IV Infused Q8H CÉSAR Infusion Vancomycin/PEG/NAD A/Lysine/Water 1,250 mg in 250 m ls @ 250 mls/hr 09/05/22 17:00 09/06/22 17:14 Vancocin IV 250 mls/hr Q12H CÉSAR Administration Insulin Human Lisp ro 0 unit 09/05/22 08:00 09/06/22 17:13 Insulin Lispro 1 00 Unit/1 Ml SUBCUT 10 unit WM&BEDTIME CÉSAR Administration Protocol Morphine Sulfate 30 mg 09/05/22 21:00 09/06/22 08:07 Morphine Er (12 Hr) 30 Mg Tablet PO 30 mg BID@0900,2100 CÉSAR Administration Pantoprazole Sodiu m 40 mg 09/06/22 07:00 09/06/22 06:[address] 40 Mg Tablet PO 40 mg DAILY@07 CÉSAR Administration Prednisone 40 mg 09/05/22 09:00 09/06/22 17:14 Prednisone 20 Mg Tablet PO 40 mg BID CÉSAR Administration Vitals/I&O/Wt Last Vital Signs Temp 97.4 F L 09/06/22 16:46 Pulse 99 09/06/22 16:46 Resp 20 H 09/06/22 16:46 BP 147/66 09/06/22 16:46 Pulse Ox 100 09/06/22 16:46 O2 Del Method BiPAP 09/06/22 16:46 O2 Flow Rate 3 09/06/22 11:11 FiO2 35 09/06/22 15:08 09/06/22 09/06/22 09/06/22 06:59 14:59 22:59 Intake Total 420 / 1450 1010 / 1010 290 / 1300 Output Total 425 / 425 Balance 420 / 1150 585 / 585 290 / 875 Weight last 48 hrs Weight 106.594 kg Physical Exam Const: COMMON NORMALS: patient oriented x3 HENMT: COMMON NORMALS: normocephalic and atraumatic HEAD & SCALP: normocephalic and atraumatic Resp: COMMON NORMALS: clear to auscultation bilaterally AUSCULTATION: clear to auscultation bilaterally OTHER: Diminished air entry bilaterally Cardio: COMMON NORMALS: regular rate, regular rhythm, S1 normal heart sound p resent, S2 normal heart sound present, No gallops present (Cardio), No murmurs present (Cardio), No rub (Cardio) and Peripheral pulses 2+ throughout RATE: regular rate RHYTHM: regular rhythm HEART SOUNDS: S1 normal heart sound present and S2 normal heart sound present PERIPHERAL PULSES: Peripheral pulses 2+ throughout GI: COMMON NORMALS: Normal to inspection, nondistended, normoactive bowel sounds present, Soft to palpation, non-tender, No hepatosplenomegaly present and no masses AUSCULTATION: Yes normoactive bowel sounds PALPATION: Yes Soft to palpation and Yes No hepatosplenomegaly present RECTAL EXAM: Yes deferred Extremity: COMMON NORMALS: no clubbing, cyanosis or edema and no pedal edema Neuro: COMMON NORMALS: patient oriented x3 Data 09/06/22 05:05 09/06/22 05:05 Micro: Microbiology 09/05/22 13:16 Gram Stain - Final Sputum - Expectorated Sputum 09/05/22 04:12 Blood Culture - Preliminary Blood NEGATIVE TO DATE 09/05/22 04:05 Blood Culture - Preliminary Blood NEGATIVE TO DATE 09/05/22 13:16 Legionella Urinary Antigen - Final Urine,Clean Catch Bacterial Antigens - Final A&P Assessment and plan (1) Acute exacerbation of chronic obstructive airways disease: (2) Acute and chronic respiratory failure with hypercapnia: (3) 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: (4) Diabetes: (5) Lung cancer: (6) COPD (chronic obstructive pulmonary disease): Plan #Acute hypoxic hypercarbic respiratory failure requiring BiPAP #History of right lower lobectomy for localized, cell carcinoma complicated by pleural effusion status post decortication #Advanced stage COPD #Possible pneumonia #Combined systolic diastolic heart failure #Chronic oxygen dependency 5 to 6 L at baseline #Diabetes mellitus type 2, insulin-dependent #Hyperlipidemia #Hypertension #BPH Plan: Blood culture negative till date Respiratory viral panel positive for parainfluenza Urine Legionella antigen negative Bacterial antigen panel negative Sputum Gram stain and culture: Few gram-positive cocci in pairs, rare gram- positive rods Currently is on broad-spectrum antibiotic vancomycin and Zosyn DuoNebs Budesonide inhaler Prednisone 40 p.o. twice daily DNR, however okay to intubate SCDs, heparin SQ twice daily Attestations Medical Necessity Statement*: Needs to be in hospital for management of respiratory failure. 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
[2022-09-06] MEDS: atorvastatin 40 mg Tablet 80 MG PO (20:30)
[2022-09-06 21:28] LABS: Glucose Point of Care 348 mg/dL (70-110)
[2022-09-07] VITALS (9 sets, daily range): BP systolic 154–157; BP diastolic 74–84; PULSE 61–91; RESP 16–22; TEMP 36.5–36.6; O2SAT 90–98
[2022-09-07] MEDS: vancomycin 1,250 MG/250 ML PIGGYBACK 250 MG IV (04:36)
[2022-09-07] MEDS: piperacillin-tazobactam 3.375 GM in sodium chloride 0.9% (plus) 50 ML IV ×2 (04:36→11:51)
[2022-09-07] MEDS: escitalopram 10 mg Tablet 20 MG PO (06:08)
[2022-09-07] MEDS: pantoprazole DR 40 mg Tablet PO (06:08)
[2022-09-07 06:13] LABS: Hematocrit 32.3 % (42.0-52.0); Hemoglobin 9.9 g/dL (11.7-16.6); Lymphocytes # 0.4 10^3/uL (0.8-4.8); Lymphocytes % 6.8 %; Mean Corpuscular HGB Conc 30.7 g/dL (30.0-36.0); Mean Corpuscular Hemoglobin 27.2 pg (28.0-34.0); Mean Corpuscular Volume 88.7 fl (80-94); Monocytes # 0.5 10^3/uL (0.2-0.9); Monocytes % 8.5 %; Neutrophils # 5.05 10^3/uL (1.8-7.7); Neutrophils % 84.4 %; Nucleated Red Blood Cells % 0 %; Platelet Count 185 10^3/cmm (130-400); Red Blood Count 3.64 10^6/uL (4.1-5.3); Red Cell Distribution Width 13.6 % (12.1-15.1)
[2022-09-07 06:19] LABS: Alanine Aminotransferase 13 U/L (0-41); Albumin Level 3.7 g/dL (3.5-5.2); Alkaline Phosphatase 83 U/L (40-130); Aspartate Amino Transferase 17 U/L (0-40); Blood Urea Nitrogen 22 mg/dL (8-23); Calcium 9.5 mg/dL (8.5-10.5); Carbon Dioxide 26 mmol/L (22-29); Chloride 103 mmol/L (98-107); Globulin 3.5 g/dL (1.3-4.6); Glucose 166 mg/dL (65-115); Osmolality Calculated 299 mOsm/kg (285-295); Sodium 141 mmol/L (136-145); Total Bilirubin 0.4 mg/dL (0.15-1.2); Total Protein 7.2 g/dL (6.6-8.7)
[2022-09-07 06:27] LABS: Anion Gap 16.3 (5-19); Potassium 4.3 mmol/L (3.5-5.1)
[2022-09-07 06:39] LABS: Glucose Point of Care 191 mg/dL (70-110)
[2022-09-07] MEDS: budesonide 0.5 mg/2 mL Neb INHALATION (07:40)
[2022-09-07] MEDS: ipratropium-albuterol 3 mL Neb INHALATION ×2 (07:40→11:17)
[2022-09-07] MEDS: aspirin 81 mg EC Tablet PO (08:17)
[2022-09-07] MEDS: clopidogrel 75 mg Tablet PO (08:17)
[2022-09-07] MEDS: predniSONE 20 mg Tablet 40 MG PO (08:17)
[2022-09-07] MEDS: insulin lispro 100 unit/1 mL SUBCUT ×2 (08:17→11:50)
[2022-09-07] MEDS: morphine ER (12 HR) 30 mg tablet PO (08:22)
--- NOTE | 2022-09-07 10:07 | PM.DCS ---
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 Was admitted for management of respiratory failure most likely secondary to COPD exacerbation, secondary to parainfluenza. During the hospital stay patient was kept on DuoNebs, oral steroids, BiPAP, supplemental oxygen as needed, initially was kept empirically on broad-spectrum antibiotic for possible pneumonia, no antibiotic was continued on discharge, as clinical suspicion for pneumonia is low, blood culture was negative till the time of discharge, urine Legionella antigen and bacterial antigen panel was negative. Patient overall responded well to above medical management, at the time of discharge her shortness of breath had significantly improved, he was saturating well at his baseline oxygen requirement, he has been discharged to the care home, he has been asked to follow pulmonary as outpatient. Physical Exam Const: COMMON NORMALS: patient oriented x3 HENMT: COMMON NORMALS: normocephalic and atraumatic HEAD & SCALP: normocephalic and atraumatic Resp: COMMON NORMALS: clear to auscultation bilaterally AUSCULTATION: clear to auscultation bilaterally OTHER: Diminished air entry bilaterally Cardio: COMMON NORMALS: regular rate, regular rhythm, S1 normal heart sound present, S2 normal heart sound present, No gallops present (Cardio), No murmurs present (Cardio), No rub (Cardio) and Peripheral pulses 2+ throughout RATE: regular rate RHYTHM: regular rhythm HEART SOUNDS: S1 normal heart sound present and S2 normal heart sound present PERIPHERAL PULSES: Peripheral pulses 2+ throughout GI: COMMON NORMALS: Normal to inspection, nondistended, normoactive bowel sounds present, Soft to palpation, non-tender, No hepatosplenomegaly present and no masses AUSCULTATION: Yes normoactive bowel sounds PALPATION: Yes Soft to palpation and Yes No hepatosplenomegaly present RECTAL EXAM: Yes deferred Extremity: COMMON NORMALS: no clubbing, cyanosis or edema and no pedal edema Neuro: COMMON NORMALS: patient oriented x3 Discharge Data Studies Completed and Pending Completed Studies During Hospitalization Category Date Time Status XR chest 1V portable [id number] Stat Exams 09/05/22 03:34 Completed Pending at discharge Category Date Time Status Blood Culture Stat Lab 09/05/22 04:12 Results CBC Auto Diff [Complete Blood Count w/Auto] AM LABS Lab 09/08/22 04:00 Ordered CBC Auto Diff [Complete Blood Count w/Auto] AM LABS Lab 09/09/22 04:00 Ordered CMP [Comprehensive Metabolic Panel] AM LABS Lab 09/08/22 04:00 Ordered CMP [Comprehensive Metabolic Panel] AM LABS Lab 09/09/22 04:00 Ordered Sputum Culture and Gram Stain Stat Lab 09/05/22 13:16 Results Radiology Impressions Chest X-Ray 09/05/22 03:34 IMPRESSION: No change from 02/15/2022. Numerous chronic findings. Laboratory Results WBC 6.0 10^3/uL (4.0-10.0) 09/07/22 05:59 RBC 3.64 10^6/uL (4.1-5.3) L 09/07/22 05:59 Hgb 9.9 g/dL (11.7-16.6) L 09/07/22 05:59 Hct 32.3 % (42.0-52.0) L 09/07/22 05:59 MCV 88.7 fl (80-94) 09/07/22 05:59 MCH 27.2 pg (28.0-34.0) L 09/07/22 05:59 MCHC 30.7 g/dL (30.0-36.0) 09/07/22 05:59 RDW 13.6 % (12.1-15.1) 09/07/22 05:59 Plt Count 185 10^3/cmm (130-400) 09/07/22 05:59 MPV 10.0 fL (7.4-10.4) 09/07/22 05:59 Neut % (Auto) 84.4 % 09/07/22 05:59 Lymph % (Auto) 6.8 % 09/07/22 05:59 Cecil % (Auto) 8.5 % 09/07/22 05:59 Eos % (Auto) 0.0 % 09/07/22 05:59 Baso % (Auto) 0.0 % 09/07/22 05:59 Neut # (Auto) 5.05 10^3/uL (1.8-7.7) 09/07/22 05:59 Lymph # (Auto) 0.4 10^3/uL (0.8-4.8) L 09/07/22 05:59 Cecil # (Auto) 0.5 10^3/uL (0.2-0.9) 09/07/22 05:59 Eos # (Auto) 0.0 10^3/uL (0.0-0.8) 09/07/22 05:59 Baso # (Auto) 0.0 10^3/uL (0.0-0.1) 09/07/22 05:59 Nucleated RBC % (auto) 0 % 09/07/22 05:59 Nucleated RBCs # 0.0 /100WBC 09/07/22 05:59 PT 14.00 SECONDS (12.1-14.9) 09/05/22 03:38 INR 1.04 (0.8-1.2) 09/05/22 03:38 Specimen Type Arterial 09/05/22 04:37 Sample Site Brachial, left 09/05/22 04:37 ABG pH 7.31 (7.35-7.45) L 09/05/22 04:37 ABG pCO2 62.7 mmHg (35-45) H* 09/05/22 04:37 ABG pO2 92.1 mmHg (80.0-100.0) 09/05/22 04:37 ABG HCO3 31.8 mmol/L (22-26) H 09/05/22 04:37 ABG Base Excess 4.2 mmol/L (-2.0-2.0) H 09/05/22 04:37 Singh Test Pos 09/05/22 04:37 Hematocrit 33.8 % (42-52) L 09/05/22 04:37 Hgb O2 Saturation 95.9 % (95-100) 09/05/22 03:34 Carboxyhemoglobin 1.3 %THgb (0.4-20.1) 09/05/22 03:34 Methemoglobin 0.5 % (0.4-1.5) 09/05/22 03:34 Total Hemoglobin 11.5 g/dL (14-18) L 09/05/22 03:34 O2 Delivery Device Bipap 09/05/22 04:37 FiO2 50.0 % 09/05/22 04:37 PEEP 10.0 cmH20 09/05/22 04:37 Supervisor [employer] ID [email or web address] 09/05/22 04:37 Sodium 141 mmol/L (136-145) 09/07/22 05:32 Potassium 4.3 mmol/L (3.5-5.1) 09/07/22 05:32 Chloride 103 mmol/L (98-107) 09/07/22 05:32 Carbon Dioxide 26 mmol/L (22-29) 09/07/22 05:32 Anion Gap 16.3 (5-19) 09/07/22 05:32 BUN 22 mg/dL (8-23) 09/07/22 05:32 Creatinine 0.6 mg/dL (0.7-1.2) L 09/07/22 05:32 GFR Calculation Not Reportable 09/07/22 05:32 Glucose 166 mg/dL (65-115) H 09/07/22 05:32 POC Glucose 191 mg/dL (70-110) H 09/07/22 06:36 Calculated Osmolality 299 mOsm/kg (285-295) H 09/07/22 05:32 Calcium 9.5 mg/dL (8.5-10.5) 09/07/22 05:32 Magnesium 2.1 mg/dL (1.7-2.3) 09/06/22 05:05 Total Bilirubin 0.4 mg/dL (0.15-1.2) 09/07/22 05:32 AST 17 U/L (0-40) 09/07/22 05:32 ALT 13 U/L (0-41) 09/07/22 05:32 Alkaline Phosphatase 83 U/L (40-130) 09/07/22 05:32 NT-Pro-B Natriuret Pep 961 pg/mL (0-125) H 09/05/22 03:38 Total Protein 7.2 g/dL (6.6-8.7) 09/07/22 05:32 Albumin 3.7 g/dL (3.5-5.2) 09/07/22 05:32 Globulin 3.5 g/dL (1.3-4.6) 09/07/22 05:32 Procalcitonin 0.03 ng/mL (0-0.5) 09/05/22 03:38 Nasal Influ A H1 2009 PCR Not detected (NOT DETECT) 09/05/22 08:46 Vancomycin Trough 12.6 ug/mL (10-15) 09/06/22 16:35 Adenovirus (PCR) Not detected (NOT DETECT) 09/05/22 08:46 C. pneumoniae DNA (PCR) Not detected (NOT DETECT) 09/05/22 08:46 Coronavirus 229E (PCR) Not detected (NOT DETECT) 09/05/22 08:46 Human Metapneumovir PCR Not detected (NOT DETECT) 09/05/22 08:46 Influenza A (H1) PCR Not detected (NOT DETECT) 09/05/22 08:46 Influenza A (H3) PCR Not detected (NOT DETECT) 09/05/22 08:46 Influenza Type A (PCR) Not detected (NOT DETECT) 09/05/22 08:46 Influenza Type B (PCR) Not detected (NOT DETECT) 09/05/22 08:46 M. pneumoniae (PCR) Not detected (NOT DETECT) 09/05/22 08:46 Parainfluenza 1 (PCR) Not detected (NOT DETECT) 09/05/22 08:46 Parainfluenza 2 (PCR) Not detected (NOT DETECT) 09/05/22 08:46 Parainfluenza 3 (PCR) Detected (NOT DETECT) A 09/05/22 08:46 Parainfluenza 4 (PCR) Not detected (NOT DETECT) 09/05/22 08:46 RSV Type A (PCR) Not detected (NOT DETECT) 09/05/22 08:46 RSV Type B (PCR) Not detected (NOT DETECT) 09/05/22 08:46 Entero/Rhino (PCR) Not detected (NOT DETECT) 09/05/22 08:46 SARS-CoV-2 (PCR) Not detected (NOT DETECT) 09/05/22 08:46 SARS-CoV-2 Ag (Rapid) negative (Negative) 09/05/22 03:50 Vitals Last Vital Signs Temp 97.7 F 09/07/22 07:58 Pulse 84 09/07/22 07:58 Resp 22 H 09/07/22 08:22 BP 156/84 09/07/22 07:58 Pulse Ox 98 09/07/22 07:58 O2 Del Method Nasal Cannula 09/07/22 07:44 O2 Flow Rate 5 09/07/22 08:00 FiO2 35 09/07/22 03:58 Discharge Plan Discharge Patient Disposition: Xfer [facility] Condition: Stable Prescriptions: New prednisone 20 mg tablet 40 mg PO DAILY 7 Days Qty: 14 0RF Continued Calamine Medicated 1-8 % lotion 1 applic topical TID PRN (Reason: itching) Qty: 177 6RF polyethylene glycol 3350 17 gram powder in packet 17 g PO EVERY OTHER DAY ferrous sulfate 325 mg (65 mg iron) tablet 325 mg PO EVERY OTHER DAY Fleet Enema 19-7 gram/118 mL enema 118 ml IA DAILY PRN (Reason: Constipation) Rx Instructions: give if no results from mom and dulcolax finasteride 5 mg tablet 5 mg PO BEDTIME acetaminophen 325 mg tablet 650 mg PO Q6H PRN (Reason: Pain) Tresiba FlexTouch U-100 100 unit/mL (3 mL) insulin pen 28 unit SUBCUT BEDTIME alendronate 70 mg Tablet 70 mg PO Q7D Rx Instructions: ON SATURDAY cholecalciferol (vitamin D3) [Vitamin D3] 25 mcg (1,000 unit) Tablet 25 mcg PO DAILY@06 ipratropium-albuterol 0.5 mg-3 mg(2.5 mg base)/3 mL Solution For Nebulization 3 ml INHALATION TID albuterol sulfate 2.5 mg /3 mL (0.083 %) solution for nebulization 2.5 mg inhalation Q4H PRN (Reason: Shortness Of Breath) morphine 30 mg tablet extended release 30 mg PO TID@,, guaifenesin 100 mg/5 mL Liquid 100 mg PO Q4H PRN (Reason: Cough) budesonide 0.5 mg/2 mL Suspension For Nebulization 0.5 mg inhalation BID clopidogrel 75 mg Tablet 75 mg PO DAILY Qty: 90 2RF aspirin 81 mg Tablet,Delayed Release (Dr/Ec) 81 mg PO DAILY Qty: 90 3RF nitroglycerin 0.4 mg tablet, sublingual 0.4 mg sublingual Q5M PRN (Reason: chest pain) Qty: 30 6RF Rx Instructions: do not exceed 3 doses per episode losartan 25 mg tablet 25 mg PO DAILY@07 bisacodyl [Dulcolax (bisacodyl)] 5 mg Tablet,Delayed Release (Dr/Ec) 10 mg PO DAILY PRN (Reason: Constipation) Rx Instructions: if no results from mom escitalopram oxalate 20 mg Tablet 20 mg PO DAILY@07 magnesium hydroxide [Milk of Magnesia] 400 mg/5 mL Suspension 30 ml PO Q72H PRN (Reason: if no bm in 3 days) Rx Instructions: do not give to renal patients-go to dulcolax orders potassium chloride 10 mEq tablet extended release 10 meq PO DAILY@07 tamsulosin 0.4 mg capsule 0.4 mg PO BEDTIME Dulcolax (bisacodyl) 10 mg Suppository 10 mg IA DAILY PRN (Reason: Constipation) Rx Instructions: if no results from mom omeprazole 20 mg Capsule,Delayed Release(Dr/Ec) 20 mg PO DAILY@07 Lasix 20 mg Tablet 20 mg PO DAILY Novolog FlexPen U-100 Insulin 100 unit/mL (3 mL) insulin pen See Rx Instructions .ROUTE .COMPLEX Rx Instructions: sliding scale before meals and at bedtime if blood sugar is less than 60 call 150-200=0 units 201-250=2 units 251-300=4 units 301-350=6 units 351-400=8 units if blood sugar is greater than 400 give 8 units call pcp is bs is <60 and >400 if symptomatic rosuvastatin 20 mg tablet 20 mg PO BEDTIME [place] Cough Drops 5.8 mg Lozenge 5.8 mg MUCOUS MEMBRANE Q2H PRN (Reason: Cough) Artificial Tears (PF) 0.1-0.3 % Dropperette 1 drp ophthalmic (eye) QID metoprolol succinate 50 mg tablet extended release 24 hr 50 mg PO DAILY@07 Trelegy Ellipta 100-62.5-25 mcg blister with device 1 inh inhalation DAILY@07 Discharge Orders: Discharge Order (Routine); Ordered 09/07/22 Ordered By: Jony Norton Referrals: [facility] [Outside] Sameer Swift MD [Physician] - 11/21/22 9:30 am (Dr Swift's office should be in contact with you to hopefully get you in sooner. 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
[2022-09-07 11:36] LABS: Glucose Point of Care 166 mg/dL (70-110)
[2022-09-07 12:10] LABS: SARS Covid-2 Antigen Negative (Negative)
--- NOTE | 2022-09-07 14:21 | PC.NURSE ---
Report called to [facility] to Carolyne KAMINSKI.
[2022-09-07 17:19] LABS: Methicillin-Resist S.aureu PCR NOT DETECTED (NOT DETECTED)
== END 2022-09-07 14:21 | disposition skilled nursing facility (03) | DRG 190 ==
LOC: ER 05:11 → MEDSURG 05:14
PROVIDERS: Admitting Provider Internal Medicine; Emergency Provider Emergency Medicine; PCP Internal Medicine; Visit Provider Internal Medicine
DX: J44.1 Chronic obstructive pulmonary disease with (acute) exacerbation (principal); J96.22 Acute and chronic respiratory failure with hypercapnia; I50.42 Chronic combined systolic (congestive) and diastolic (congestive) heart failure; Z87.891 Personal history of nicotine dependence; Z99.81 Dependence on supplemental oxygen; Z66 Do not resuscitate; I25.10 Atherosclerotic heart disease of native coronary artery without angina pectoris; M54.42 Lumbago with sciatica, left side; E11.9 Type 2 diabetes mellitus without complications; K21.9 Gastro-esophageal reflux disease without esophagitis; I11.0 Hypertensive heart disease with heart failure; E78.5 Hyperlipidemia, unspecified; Z86.711 Personal history of pulmonary embolism; Z85.118 Personal history of other malignant neoplasm of bronchus and lung; N40.0 Benign prostatic hyperplasia without lower urinary tract symptoms; B34.8 Other viral infections of unspecified site
CPT/HCPCS: 36415; 36416; 71045; 80053; 80202; 82803; 82805; 82962; 83735; 83880; 84145; 85025; 85610; 86403; 87040; 87070; 87077; 87186; 87205; 87426; 87449; 87486; 87581; 87633; 87641; 93005; 94640; 94660; 94762; 96365; 96367; 96372; 96375; 97110; 97161; 97530; 99285; J1100; J1815; J2060; J2270; J2543; J3370; J3475; J7050; J7512; J7613; J7626; J7644

== ENCOUNTER 2022-09-16 02:57 | Emergency (ER) | payer MEDICARE, MEDICAID, SELFPAY ==
[2022-09-16] VITALS (10 sets, daily range): BP systolic 110–127; BP diastolic 53–65; PULSE 62–99; RESP 18–20; TEMP 37.4; O2SAT 55–99
--- NOTE | 2022-09-16 03:24 | ECG_ITS ---
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 Measurements Intervals [place] Rate: 71 P: 47 DC: 95 QRS: 59 QRSD: 94 T: 73 QT: 354 QTc: 386 Interpretive Statements SINUS RHYTHM WITH SHORT DC INTERVAL NONSPECIFIC T-WAVE ABNORMALITY Compared to ECG 09/05/2022 03:47:36 Short DC interval now present Sinus tachycardia no longer present T-wave abnormality still present Electronically Signed On 09-16-2022 10:13:29 CDT by Jaden Quiroz M.D. [email or web address]
--- NOTE | 2022-09-16 03:25 | XRR_ITS ---
PROCEDURE INFORMATION: Exam: XR Chest Exam date and time: 09/16/2022 3:40 AM Age: 72 years old Clinical indication: Cough and shortness of breath; Prior surgery; Surgery date: 6+ months; Surgery type: RT lobectomy; Patient HX: C/O cough with SOB. History of copd and lung cancer. TECHNIQUE: Imaging protocol: Radiologic exam of the chest. Views: 1 view. COMPARISON: CR (CHEST, ) 09/05/2022 3:42 AM FINDINGS: Lungs: There is volume loss in the right hemithorax consistent with the history of lobectomy. There is hyperexpansion of the left lung. There is ill-defined opacity in the right lower lung which is decreased since 09/05/2022. Diffuse opacity present bilaterally on 09/05/2022 has largely resolved. There is minimal reticular opacity in the left lung base. Pleural spaces: There is no pleural effusion or pneumothorax. Heart/Mediastinum: Cardiomediastinal contours are distorted by volume loss in the right hemithorax. Heart size is grossly normal. Bones/joints: Bones are unremarkable. XR/XR chest 1V portable [id number] IMPRESSION: 1. Interval resolution of diffuse bilateral pulmonary opacity visible on 09/05/2022. 2. Mild residual opacity in the right lung base. Probable atelectasis. 3. Volume loss in the right hemithorax is stable.
[2022-09-16 03:28] LABS: Arterial Blood Gas Hematocrit 33.5 % (42-52); Base Excess ABG 10.7 mmol/L (-2.0-2.0); Blood Gas Allen Test Pos; Blood Gas Sample Site Radial, left; Blood Gas Sample Type Arterial; Carboxyhemoglobin 1.6 %THgb (0.4-20.1); HCO3 ABG 37.4 mmol/L (22-26); HGB O2 Sat 98.4 % (95-100); Ionized Calcium Level - ABG 1.3 mmol/L (1.1-1.4); Methemoglobin 0.3 % (0.4-1.5); Oxygen Device OXY MASK; Oxygen Saturation ABG > 100.0; Potassium Level - ABG 4.4 mmol/L (3.5-5.0); Total Hemoglobin 10.9 g/dL (14-18)
[2022-09-16 03:29] LABS: ABG PCO2 60.6 mmHg (35-45)
--- NOTE | 2022-09-16 03:29 | W.ED.SOB ---
HPI - SOB/Dyspnea General: Chief Complaint: Shortness of Breath/Dyspnea Stated Complaint: SOB Time Seen by Provider: 09/16/22 03:05 Source: patient History of Present Illness: HPI Narrative: 72 year old male with a history of essentially end stage COPD on five to six liters of oxygen by nasal cannula at home. He presents with sudden onset shortness of breath. He was provided nebulizer treatments in the ambulance and oxygen with some improvement. He is placed on an oxy mask here in the ER, with drastic improvement. He is essentially asymptomatic at this point. He has been having a cough with some skating production. He was treated recently as an inpatient for similar symptoms. He was not sent home on antibiotics. He was sent home on steroids. MD elicited complaint: shortness of breath Pertinent past history: COPD Onset (ago): hour(s) Context: recent illness and other Timing: constant and now resolved Severity: moderate Exacerbating factors: lying flat and exertion Relieving factors: oxygen and bronchodilators Known history of: COPD, congestive heart failure and other Associated symptoms: Reports chest congestion, cough and orthopnea; Deny abdominal pain, chest pain, diaphoresis, fever(s), syncope or vomiting Treatment prior to arrival: oxygen and bronchodilator Related Data: Home oxygen amount: other (5-6) Review of Systems Const: Denies: fever(s) or diaphoresis Card: Reports: orthopnea; Denies: chest pain or syncope Resp: Reports: chest congestion GI: Denies: abdominal pain or vomiting [facility] ED PFSH: Medical History Atherosclerosis of coronary artery 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 Hwang -[place] Hx of cholecystectomy Hx of eye surgery bilat-Dr. Navarrete did right and Dr. Perez in [place] Hx of kyphoplasty 07/05/[address] Powell Status post colonoscopy (05/11/20) normal Family History Brother Cancer Diabetes Heart disease Social History Smoking and tobacco status: former smoker (smoked x 40 years) Quit status (tobacco): has quit using tobacco Year quit tobacco: 2016 - PPD x 45 Years Former quit date comment: Started at age 17 Second hand smoke exposure: No Smoking risk assessment/counseling performed?: Yes Alcohol intake: former Year of sobriety/quit date alcohol: 2013 Former alcohol use details: beer Substance/Drug Use: never Lives independently: Yes Household members: none Marital status: service: No Current occupational status: disabled Do you think of yourself as: Straight/Heterosexual Current gender identity: Male Physical Exam Const: GENERAL APPEARANCE: cooperative, ill appearing (mildly) and frail appearing (mildly) HENMT: COMMON NORMALS: normocephalic, atraumatic and Normal external nose present HEAD & SCALP: normocephalic and atraumatic FACE & SINUS: normal facial exam and face symmetric NOSE: Normal external nose present Eye: COMMON NORMALS: Equal, round and reactive pupils present and EOMs intact bilaterally PUPIL: Yes Equal, round and reactive pupils present Neck/C-Spine: GENERAL: Yes trachea midline Chest: CHEST: Yes Symmetrical chest wall rise Resp: COMMON NORMALS: clear to auscultation bilaterally EFFORT & INSPECTION: Yes tachypneic AUSCULTATION: clear to auscultation bilaterally and diminished lung sounds (on right) Cardio: COMMON NORMALS: regular rate and regular rhythm RATE: regular rate RHYTHM: regular rhythm GI: COMMON NORMALS: Normal to inspection, nondistended, normoactive bowel sounds present Extremity: COMMON NORMALS: no pedal edema Neuro: LETA COMA SCALE: document GCS findings Leta coma scale eye opening: Spontaneous [place] coma scale verbal response: Orientated [place] coma scale motor response: Obey commands Leta coma scale total score: 15 SENSORY EXAM: Yes extremities (intact) Psych: COMMON NORMALS: speech normal SPEECH: Yes normal speech Skin: COMMON NORMALS: no rashes or lesions noted GENERAL SKIN EXAM: no rashes or lesions noted Course Vital Signs: Vital signs: Vital Signs Temperature 99.3 F 09/16/22 02:59 Pulse Rate 99 09/16/22 07:57 Respiratory Rate 18 09/16/22 03:37 Blood Pressure 126/62 09/16/22 07:57 Pulse Oximetry 55 L 09/16/22 07:57 Oxygen Delivery Me thod Oxymask 09/16/22 07:04 Oxygen Flow Rate 5 09/16/22 07:04 MDM - SOB/Dyspnea Medical Decision Making The patient was given dexamethasone, nebulizer treatments here with significant improvement. His chest X-ray shows resolution of diffuse bilateral pulmonary opacities. There's mild residual opacity in the right lung base that is probably atelectasis. His BUN is elevated. Creatinine is normal. On blood gas testing, his pH is 7.4, with chronic retention noted on PCO2 testing. He'll be allowed to discharge on steroids, nebulizer treatments, and antibiotics. He knows to return for worsening symptoms. Lab Data 09/16/22 02:46 09/16/22 02:46 Labs/Radiology: Radiology Impressions Chest X-Ray 09/16/22 03:25 IMPRESSION: 1. Interval resolution of diffuse bilateral pulmonary opacity visible on 09/05/2022. 2. Mild residual opacity in the right lung base. Probable atelectasis. 3. Volume loss in the right hemithorax is stable. Laboratory Results WBC 16.0 10^3/uL (4.0-10.0) H 09/16/22 02:46 RBC 3.93 10^6/uL (4.1-5.3) L 09/16/22 02:46 Hgb 10.6 g/dL (11.7-16.6) L 09/16/22 02:46 Hct 34.1 % (42.0-52.0) L 09/16/22 02:46 MCV 86.8 fl (80-94) 09/16/22 02:46 MCH 27.0 pg (28.0-34.0) L 09/16/22 02:46 MCHC 31.1 g/dL (30.0-36.0) 09/16/22 02:46 RDW 13.2 % (12.1-15.1) 09/16/22 02:46 Plt Count 220 10^3/cmm (130-400) 09/16/22 02:46 MPV 10.4 fL (7.4-10.4) 09/16/22 02:46 Neut % (Auto) 86.8 % 09/16/22 02:46 Lymph % (Auto) 5.5 % 09/16/22 02:46 Price % (Auto) 6.2 % 09/16/22 02:46 Eos % (Auto) 1.1 % 09/16/22 02:46 Baso % (Auto) 0.1 % 09/16/22 02:46 Neut # (Auto) 13.91 10^3/uL (1.8-7.7) H 09/16/22 02:46 Lymph # (Auto) 0.9 10^3/uL (0.8-4.8) 09/16/22 02:46 Price # (Auto) 1.0 10^3/uL (0.2-0.9) H 09/16/22 02:46 Eos # (Auto) 0.2 10^3/uL (0.0-0.8) 09/16/22 02:46 Baso # (Auto) 0.0 10^3/uL (0.0-0.1) 09/16/22 02:46 Nucleated RBC % (auto) 0 % 09/16/22 02:46 Nucleated RBCs # 0.0 /100WBC 09/16/22 02:46 Specimen Type Arterial 09/16/22 03:17 Sample Site Radial, left 09/16/22 03:17 ABG pH 7.40 (7.35-7.45) 09/16/22 03:17 ABG pCO2 60.6 mmHg (35-45) H* 09/16/22 03:17 ABG pO2 159.0 mmHg (80.0-100.0) H 09/16/22 03:17 ABG HCO3 37.4 mmol/L (22-26) H 09/16/22 03:17 ABG O2 Saturation > 100.0 09/16/22 03:17 ABG Base Excess 10.7 mmol/L (-2.0-2.0) H 09/16/22 03:17 Singh Test Pos 09/16/22 03:17 A-a O2 Gradient Not Reportable 09/16/22 03:17 Hematocrit 33.5 % (42-52) L 09/16/22 03:17 Hgb O2 Saturation 98.4 % (95-100) 09/16/22 03:17 Carboxyhemoglobin 1.6 %THgb (0.4-20.1) 09/16/22 03:17 Methemoglobin 0.3 % (0.4-1.5) L 09/16/22 03:17 Total Hemoglobin 10.9 g/dL (14-18) L 09/16/22 03:17 Sodium 136.0 mmol/L (131-143) 09/16/22 03:17 Potassium 4.4 mmol/L (3.5-5.0) 09/16/22 03:17 Glucose 289.0 mg/dL (70-115) H 09/16/22 03:17 Ionized Calcium 1.3 mmol/L (1.1-1.4) 09/16/22 03:17 O2 Delivery Device Oxy mask 09/16/22 03:17 O2 Liters/Min 8.0 % 09/16/22 03:17 Animal Daycare Provider ID [email or web address] 09/16/22 03:17 Sodium 136 mmol/L (136-145) 09/16/22 02:46 Potassium 4.8 mmol/L (3.5-5.1) 09/16/22 02:46 Chloride 93 mmol/L (98-107) L 09/16/22 02:46 Carbon Dioxide 34 mmol/L (22-29) H 09/16/22 02:46 Anion Gap 13.8 (5-19) 09/16/22 02:46 BUN 28 mg/dL (8-23) H 09/16/22 02:46 Creatinine 0.7 mg/dL (0.7-1.2) 09/16/22 02:46 GFR Calculation Not Reportable 09/16/22 02:46 Glucose 284 mg/dL (65-115) H 09/16/22 02:46 Calculated Osmolality 298 mOsm/kg (285-295) H 09/16/22 02:46 Lactic Acid 0.6 mmol/L (0.5-2.2) 09/16/22 03:58 Calcium 9.4 mg/dL (8.5-10.5) 09/16/22 02:46 Total Bilirubin 0.6 mg/dL (0.15-1.2) 09/16/22 02:46 AST 14 U/L (0-40) 09/16/22 02:46 ALT 8 U/L (0-41) 09/16/22 02:46 Alkaline Phosphatase 75 U/L (40-130) 09/16/22 02:46 NT-Pro-B Natriuret Pep 226 pg/mL (0-125) H 09/16/22 02:46 Total Protein 6.8 g/dL (6.6-8.7) 09/16/22 02:46 Albumin 3.5 g/dL (3.5-5.2) 09/16/22 02:46 Globulin 3.3 g/dL (1.3-4.6) 09/16/22 02:46 Discharge Plan Discharge Patient Disposition: Home Clinical Impression: Acute exacerbation of chronic obstructive airways disease Condition: Stable Prescriptions: New prednisone 20 mg tablet 20 mg PO BID 7 Days Qty: 14 0RF levofloxacin 750 mg tablet 750 mg PO DAILY 7 Days Qty: 7 0RF No Action Calamine Medicated 1-8 % lotion 1 applic topical TID PRN (Reason: itching) Qty: 177 6RF polyethylene glycol 3350 17 gram powder in packet 17 g PO EVERY OTHER DAY ferrous sulfate 325 mg (65 mg iron) tablet 325 mg PO EVERY OTHER DAY Fleet Enema 19-7 gram/118 mL enema 118 ml HI DAILY PRN (Reason: Constipation) Rx Instructions: give if no results from mom and dulcolax finasteride 5 mg tablet 5 mg PO BEDTIME acetaminophen 325 mg tablet 650 mg PO Q6H PRN (Reason: Pain) Tresiba FlexTouch U-100 100 unit/mL (3 mL) insulin pen 28 unit SUBCUT BEDTIME alendronate 70 mg Tablet 70 mg PO Q7D Rx Instructions: ON SATURDAY cholecalciferol (vitamin D3) [Vitamin D3] 25 mcg (1,000 unit) Tablet 25 mcg PO DAILY@06 ipratropium-albuterol 0.5 mg-3 mg(2.5 mg base)/3 mL Solution For Nebulization 3 ml INHALATION TID albuterol sulfate 2.5 mg /3 mL (0.083 %) solution for nebulization 2.5 mg inhalation Q4H PRN (Reason: Shortness Of Breath) morphine 30 mg tablet extended release 30 mg PO TID@07,15,23 guaifenesin 100 mg/5 mL Liquid 100 mg PO Q4H PRN (Reason: Cough) budesonide 0.5 mg/2 mL Suspension For Nebulization 0.5 mg inhalation BID clopidogrel 75 mg Tablet 75 mg PO DAILY Qty: 90 2RF aspirin 81 mg Tablet,Delayed Release (Dr/Ec) 81 mg PO DAILY Qty: 90 3RF nitroglycerin 0.4 mg tablet, sublingual 0.4 mg sublingual Q5M PRN (Reason: chest pain) Qty: 30 6RF Rx Instructions: do not exceed 3 doses per episode losartan 25 mg tablet 25 mg PO DAILY@07 bisacodyl [Dulcolax (bisacodyl)] 5 mg Tablet,Delayed Release (Dr/Ec) 10 mg PO DAILY PRN (Reason: Constipation) Rx Instructions: if no results from mom escitalopram oxalate 20 mg Tablet 20 mg PO DAILY@07 magnesium hydroxide [Milk of Magnesia] 400 mg/5 mL Suspension 30 ml PO Q72H PRN (Reason: if no bm in 3 days) Rx Instructions: do not give to renal patients-go to dulcolax orders potassium chloride 10 mEq tablet extended release 10 meq PO DAILY@07 tamsulosin 0.4 mg capsule 0.4 mg PO BEDTIME Dulcolax (bisacodyl) 10 mg Suppository 10 mg HI DAILY PRN (Reason: Constipation) Rx Instructions: if no results from mom omeprazole 20 mg Capsule,Delayed Release(Dr/Ec) 20 mg PO DAILY@07 Lasix 20 mg Tablet 20 mg PO DAILY Novolog FlexPen U-100 Insulin 100 unit/mL (3 mL) insulin pen See Rx Instructions .ROUTE .COMPLEX Rx Instructions: sliding scale before meals and at bedtime if blood sugar is less than 60 call 150-200=0 units 201-250=2 units 251-300=4 units 301-350=6 units 351-400=8 units if blood sugar is greater than 400 give 8 units call pcp is bs is <60 and >400 if symptomatic rosuvastatin 20 mg tablet 20 mg PO BEDTIME [place] Cough Drops 5.8 mg Lozenge 5.8 mg MUCOUS MEMBRANE Q2H PRN (Reason: Cough) Artificial Tears (PF) 0.1-0.3 % Dropperette 1 drp ophthalmic (eye) QID metoprolol succinate 50 mg tablet extended release 24 hr 50 mg PO DAILY@07 Arlene Ellipta 100-62.5-25 mcg blister with device 1 inh inhalation DAILY@07 Discharge Orders: Discharge ED (Routine); Ordered 09/16/22 Ordered By: Ferny De La Torre Referrals: Daniel Leyva DO [Primary Care Provider] - 1-3 days Patient Instructions: COPD (Chronic Obstructive Pulmonary Disease) (ED), Opioid Safety, Pain Management Activity Restrictions/Additional Instructions: Use your DuoNeb nebulizer every 4 hours while awake for the next 48 hours, then as needed following that. Medications as directed. Return for worsening shortness of breath despite treatment, fever despite 2-3 doses of antibiotics, lethargy, mental status changes, any other concerning symptoms. Coding Level of Care Code ED Blender Helper for Camila Ko
[2022-09-16] MEDS: ipratropium 0.5 mg/2.5 mL Neb INHALATION (03:36)
[2022-09-16 03:37] LABS: Basophils % 0.1 %; Eosinophils # 0.2 10^3/uL (0.0-0.8); Eosinophils % 1.1 %; Hematocrit 34.1 % (42.0-52.0); Hemoglobin 10.6 g/dL (11.7-16.6); Lymphocytes # 0.9 10^3/uL (0.8-4.8); Lymphocytes % 5.5 %; Mean Corpuscular HGB Conc 31.1 g/dL (30.0-36.0); Mean Corpuscular Volume 86.8 fl (80-94); Mean Platelet Volume 10.4 fL (7.4-10.4); Monocytes % 6.2 %; Neutrophils # 13.91 10^3/uL (1.8-7.7); Neutrophils % 86.8 %; Nucleated Red Blood Cells % 0 %; Platelet Count 220 10^3/cmm (130-400); Red Blood Count 3.93 10^6/uL (4.1-5.3); Red Cell Distribution Width 13.2 % (12.1-15.1)
[2022-09-16] MEDS: dexamethasone 10 mg/mL INJ IVP (03:44)
[2022-09-16 03:50] LABS: Alanine Aminotransferase 8 U/L (0-41); Albumin Level 3.5 g/dL (3.5-5.2); Alkaline Phosphatase 75 U/L (40-130); Anion Gap 13.8 (5-19); Aspartate Amino Transferase 14 U/L (0-40); Blood Urea Nitrogen 28 mg/dL (8-23); Calcium 9.4 mg/dL (8.5-10.5); Carbon Dioxide 34 mmol/L (22-29); Chloride 93 mmol/L (98-107); Globulin 3.3 g/dL (1.3-4.6); Glucose 284 mg/dL (65-115); Osmolality Calculated 298 mOsm/kg (285-295); Potassium 4.8 mmol/L (3.5-5.1); Sodium 136 mmol/L (136-145); Total Bilirubin 0.6 mg/dL (0.15-1.2); Total Protein 6.8 g/dL (6.6-8.7)
[2022-09-16 04:15] LABS: NT Pro B Type Natriuretic Pept 226 pg/mL (0-125)
[2022-09-16 04:23] LABS: Lactic Sepsis W/Reflex 0.6 mmol/L (0.5-2.2)
--- NOTE | 2022-09-16 05:55 | PC.NURSE ---
Report called to Jazmín NUGENT at [facility].
== END 2022-09-16 07:58 | disposition home or self-care (01) ==
PROVIDERS: Emergency Provider Emergency Medicine; PCP Internal Medicine
DX: J44.1 Chronic obstructive pulmonary disease with (acute) exacerbation (principal); Z99.81 Dependence on supplemental oxygen; Z87.891 Personal history of nicotine dependence
CPT/HCPCS: 36415; 36600; 71045; 80051; 80053; 82330; 82805; 83605; 83880; 85025; 87040; 93005; 94640; 96374; 96375; 99285; J1100; J7644

== ENCOUNTER 2022-09-23 07:54 | Emergency (ER) | payer MEDICARE, MEDICAID, SELFPAY ==
[2022-09-23 07:57] VITALS: BP 100/46; PULSE 73; RESP 18; TEMP 36.8; O2SAT 97; BMI 27.3
--- NOTE | 2022-09-23 08:05 | XRR_ITS ---
PROCEDURE INFORMATION: Exam: XR Chest Exam date and time: 09/23/2022 8:13 AM Age: 72 years old Clinical indication: Shortness of breath; Additional info: SOB TECHNIQUE: Imaging protocol: Radiologic exam of the chest. Views: 1 view. COMPARISON: CR (CHEST, ) 09/16/2022 3:40 AM FINDINGS: Lungs: There is stable volume loss seen in the right hemithorax. The patient is status post a right lower lobectomy. Linear opacities are seen in the left lower hemithorax most probably representing pulmonary fibrosis. Pleural spaces: There are strandy and hazy opacity seen in the right lower hemithorax likely representing combined pleural and parenchymal scarring. Heart/Mediastinum: Unremarkable. No cardiomegaly. Bones/joints: Unremarkable. XR/XR chest 1V [id number] IMPRESSION: 1. Postoperative changes seen in the right lower hemithorax. 2. Pulmonary fibrosis in the left lower hemithorax. 3. Otherwise stable appearance of the chest compared with 09/16/2022.
--- NOTE | 2022-09-23 08:08 | W.ED.ALLEREA ---
HPI - Allergic Reaction General: Chief complaint: Shortness of Breath/Dyspnea Stated complaint: SOB; RASH Time Seen by Provider: 09/23/22 08:05 Source: patient and EMS Mode of arrival: EMS Limitations: no limitations History of Present Illness: HPI narrative: This patient was transported to the emergency department from long-term care facility. Apparently has had development of a rash and itching there is a question whether he had some increased shortness of breath over the last 12 hours. He apparently has been taking Levaquin recently4 and exacerbation of COPD. He is unaware if he has taken Levaquin in the past. He has no medication allergies. Levaquin was prescribed on 06 October. He states that rash began approximately 36-48 hours prior to arrival. He is unsure when he took his last dose of Levaquin as he is in a long-term care facility and he is unaware of when his medications are given. He denies any fevers or chills or chest pain nausea vomiting or abdominal pain. He normally wears oxygen at 3 to 4 L in the long-term care facility. He normally is dyspneic with any kind of activity over baseline and uses a wheelchair for mobility because of his GRACE. He denies any cough or fevers. MD complaint: hives Onset (ago): day(s) Exposure: medication Associated symptoms: Reports itching; Deny abdominal pain, hoarseness, nausea or vomiting Treatment prior to arrival: benadryl and steroids Review of Systems Const: Denies: fever(s) or chills Eyes: Denies: change in vision ENMT: Denies: throat pain, odynophagia, hoarseness, nasal discharge or nasal congestion Card: Denies: chest pain, palpitations, irregular heart rhythm or edema Resp: Denies: productive cough or non-productive cough GI: Denies: abdominal pain, nausea, vomiting or hematemesis : Denies: flank pain, difficulty urinating, dysuria or urinary frequency Musc: Denies: neck pain, back pain, extremity pain or extremity swelling Skin/Breast: Reports: rash, pruritus and erythema Neuro: Denies: headache(s), numbness in extremities or weakness in extremities Psych: Denies: anxiety or depression Endo: Denies: polyuria or polydipsia Jax/Lymph: Reports: easy bruising [facility] ED PFSH: Medical History Acute and chronic respiratory failure with hypercapnia Acute exacerbation of chronic obstructive airways disease Atherosclerosis of coronary artery 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 Hwang -[place] Hx of cholecystectomy Hx of eye surgery bilat-Dr. Navarrete did right and Dr. Perez in [place] Hx of kyphoplasty 07/05/[address] Powell Status post colonoscopy (05/11/20) normal Family History Brother Cancer Diabetes Heart disease Social History Smoking and tobacco status: former smoker (smoked x 40 years) Quit status (tobacco): has quit using tobacco Year quit tobacco: 2015 PPD x 45 Years Former quit date comment: Started at age 17 Second hand smoke exposure: No Smoking risk assessment/counseling performed?: Yes Alcohol intake: former Year of sobriety/quit date alcohol: 2013 Former alcohol use details: beer Substance/Drug Use: never Lives independently: Yes Household members: none Marital status: service: No Current occupational status: disabled Do you think of yourself as: Straight/Heterosexual Current gender identity: Male Physical Exam Narrative: EXAM NARRATIVE: The patient is alert makes good eye contact. He is aware of his surroundings and answers questions in a goal-directed fashion. Const: COMMON NORMALS: no acute distress, average body habitus, patient oriented x3 and alert GENERAL APPEARANCE: cooperative and comfortable HENMT: COMMON NORMALS: normocephalic, Normal nasal mucous membranes and turbinates present, moist oral mucous membranes and oropharynx normal HEAD & SCALP: normocephalic NOSE: Normal nasal mucous membranes and turbinates present Eye: COMMON NORMALS: Equal, round and reactive pupils present, EOMs intact bilaterally, conjunctivae normal and no scleral icterus CONJUNCTIVA: Yes conjunctivae normal PUPIL: Yes Equal, round and reactive pupils present Neck/C-Spine: COMMON NORMALS: full ROM, supple, no JVD and No carotid bruits Chest: COMMONS NORMALS: normal inspection of the chest Resp: COMMON NORMALS: normal respiratory effort and No use of accessory muscles EFFORT & INSPECTION: No stridor AUSCULTATION: no crackles, no wheezes and diminished lung sounds Cardio: COMMON NORMALS: no JVD, regular rate, regular rhythm, No murmurs present (Cardio) and Peripheral pulses 2+ throughout RATE: regular rate RHYTHM: regular rhythm PERIPHERAL PULSES: Peripheral pulses 2+ throughout GI: COMMON NORMALS: Normal to inspection, nondistended, normoactive bowel sounds present, Soft to palpation and non-tender PALPATION: Yes Soft to palpation : COMMON NORMALS: Yes no CVA tenderness BLADDER/KIDNEY EXAM: Yes no CVA tenderness Back/Pelvis: COMMON NORMALS: no CVA tenderness, thoracic and lumbar spine normal to inspection and no thoracic nor lumbar tenderness Extremity: COMMON NORMALS: normal to inspection, full ROM, capillary refill normal, no calf tenderness and no pedal edema Neuro: COMMON NORMALS: patient oriented x3, moves all extremities, no focal motor deficits and no sensory deficits noted SENSORIUM/ORIENTATION: Yes alert CRANIAL NERVES: Yes CN normal except as noted Psych: COMMON NORMALS: mental status grossly normal Skin: NARRATIVE SKIN EXAM: Patient has scattered raised erythematous macules consistent with urticaria. He also has some areas of excoriation on his lower extremities. No pustules, bullae etc. Course Reevaluation(s): Reevaluation #1: Patient's EKG, chest x-ray are reassuring. He is very comfortable on his usual and actually able lower than usual oxygen rate here at 2 L/min his oxygen saturations were in the 97 to 98% range. We will continue to observe in the emergency department for period of time to ensure stability and then plan on discharge back to the long-term care facility. Recommend no additional Levaquin, we will continue his prednisone for several more days and add a H1 and H2 antonio for the next 48 to 72 hours. No evidence of anaphylaxis at this time. Time: 08:50 Reevaluation #2: Still doing well. No new findings. He denies any itching at this time. Denies any subjective shortness of breath. Vital signs are reassuring. Time: 09:17 Vital Signs: Vital signs: Vital Signs Temperature 98.3 F 09/23/22 07:57 Pulse Rate 73 09/23/22 07:57 Respiratory Rate 18 09/23/22 07:57 Blood Pressure 100/46 09/23/22 07:57 Pulse Oximetry 97 09/23/22 07:57 Oxygen Delivery Me thod Nasal Cannula 09/23/22 07:57 Oxygen Flow Rate 3 09/23/22 07:57 MDM - Allergic Reaction Medical Decision Making Patient with development of urticarial rash while taking Levaquin as the only new change of environment. Has a longstanding history of COPD as well as coronary disease and is oxygen dependent. Patient presented to the emergency department because of concerns about possible shortness of breath. The patient is comfortable states he feels his normal state of health now other than he has had itching for the last 2 days. Denies any cough or fevers. Clinical examination was reassuring other than urticarial rash. Patient was observed in the emergency department. He continued to remain stable on his 2 L of oxygen. He subjectively denied any subsequent itching while in the emergency department. I think he is stable to be discharged back to the long-term care facility. We will continue on Pepcid 20 mg twice daily for the next 3 days as well as Benadryl 25 mg 3 times daily for the next 3 days. Obviously discontinue the Levaquin. He will be continued on prednisone for the next 5 days. Differential Diagnosis Likely adverse reaction to drug; Unlikely anaphylaxis or angioedema Lab Data I reviewed the patient's lab results. Radiology Impressions Chest X-Ray 09/23/22 08:05 IMPRESSION: 1. Postoperative changes seen in the right lower hemithorax. 2. Pulmonary fibrosis in the left lower hemithorax. 3. Otherwise stable appearance of the chest compared with 09/16/2022. EKG Data EKG 1: I personally reviewed and interpreted this EKG as follows: Interpretation: Contemporaneous review of resting EKG reveals a ventricular rate of 67 bpm. CA interval QRS duration, corrected QT interval are all normal. Normal axis. Has some nonspecific ST-T wave changes have been present on prior tracings available within the system. No acute change. Discharge Plan Discharge Patient Disposition: LTCH w Plan Readm Clinical Impression: Medication side effect Condition: Stable Prescriptions: New prednisone 20 mg tablet 20 mg PO BID 5 Days Qty: 10 0RF Pepcid 20 mg tablet 20 mg PO BID 3 Days Qty: 6 0RF No Action Calamine Medicated 1-8 % lotion 1 applic topical TID PRN (Reason: itching) Qty: 177 6RF polyethylene glycol 3350 17 gram powder in packet 17 g PO EVERY OTHER DAY ferrous sulfate 325 mg (65 mg iron) tablet 325 mg PO EVERY OTHER DAY Fleet Enema 19-7 gram/118 mL enema 118 ml CA DAILY PRN (Reason: Constipation) Rx Instructions: give if no results from mom and dulcolax finasteride 5 mg tablet 5 mg PO BEDTIME acetaminophen 325 mg tablet 650 mg PO Q6H PRN (Reason: Pain) Tresiba FlexTouch U-100 100 unit/mL (3 mL) insulin pen 28 unit SUBCUT BEDTIME alendronate 70 mg Tablet 70 mg PO Q7D Rx Instructions: ON SATURDAY cholecalciferol (vitamin D3) [Vitamin D3] 25 mcg (1,000 unit) Tablet 25 mcg PO DAILY@06 ipratropium-albuterol 0.5 mg-3 mg(2.5 mg base)/3 mL Solution For Nebulization 3 ml INHALATION TID albuterol sulfate 2.5 mg /3 mL (0.083 %) solution for nebulization 2.5 mg inhalation Q4H PRN (Reason: Shortness Of Breath) morphine 30 mg tablet extended release 30 mg PO TID@07,15, guaifenesin 100 mg/5 mL Liquid 100 mg PO Q4H PRN (Reason: Cough) budesonide 0.5 mg/2 mL Suspension For Nebulization 0.5 mg inhalation BID clopidogrel 75 mg Tablet 75 mg PO DAILY Qty: 90 2RF aspirin 81 mg Tablet,Delayed Release (Dr/Ec) 81 mg PO DAILY Qty: 90 3RF nitroglycerin 0.4 mg tablet, sublingual 0.4 mg sublingual Q5M PRN (Reason: chest pain) Qty: 30 6RF Rx Instructions: do not exceed 3 doses per episode losartan 25 mg tablet 25 mg PO DAILY@07 bisacodyl [Dulcolax (bisacodyl)] 5 mg Tablet,Delayed Release (Dr/Ec) 10 mg PO DAILY PRN (Reason: Constipation) Rx Instructions: if no results from mom escitalopram oxalate 20 mg Tablet 20 mg PO DAILY@07 magnesium hydroxide [Milk of Magnesia] 400 mg/5 mL Suspension 30 ml PO Q72H PRN (Reason: if no bm in 3 days) Rx Instructions: do not give to renal patients-go to dulcolax orders potassium chloride 10 mEq tablet extended release 10 meq PO DAILY@07 tamsulosin 0.4 mg capsule 0.4 mg PO BEDTIME Dulcolax (bisacodyl) 10 mg Suppository 10 mg CA DAILY PRN (Reason: Constipation) Rx Instructions: if no results from mom omeprazole 20 mg Capsule,Delayed Release(Dr/Ec) 20 mg PO DAILY@07 Lasix 20 mg Tablet 20 mg PO DAILY Novolog FlexPen U-100 Insulin 100 unit/mL (3 mL) insulin pen See Rx Instructions .ROUTE .COMPLEX Rx Instructions: sliding scale before meals and at bedtime if blood sugar is less than 60 call md 150-200=0 units 201-250=2 units 251-300=4 units 301-350=6 units 351-400=8 units if blood sugar is greater than 400 give 8 units call pcp is bs is <60 and >400 if symptomatic rosuvastatin 20 mg tablet 20 mg PO BEDTIME [facility] Cough Drops 5.8 mg Lozenge 5.8 mg MUCOUS MEMBRANE Q2H PRN (Reason: Cough) Artificial Tears (PF) 0.1-0.3 % Dropperette 1 drp ophthalmic (eye) QID metoprolol succinate 50 mg tablet extended release 24 hr 50 mg PO DAILY@07 Trelegy Ellipta 100-62.5-25 mcg blister with device 1 inh inhalation DAILY@07 Discharge Orders: Discharge ED (Routine); Ordered 09/23/22 Ordered By: Taco Reilly Referrals: Daniel Leyva DO [Primary Care Provider] - Discharge Diet: Usual diet Discharge Activity: Increase activity as tolerated, Wheelchair as instructed and Oxygen as instructed Activity Restrictions/Additional Instructions: Do not take Levaquin. It would appear that your symptoms are related to a possible allergic reaction to this medication. We have provided 5 additional days of prednisone to take to help reduce your urticaria and rash from your likely allergic reaction. We have also provided a prescription for Pepcid to take twice daily for the next 3 days. We also recommend taking Benadryl 25 mg 2-3 times daily for the next 3 days to help with any itching. If you have any new or concerning symptoms you are welcome to return to the emergency department for reevaluation otherwise follow-up with your attending physician. Coding Level of Care Code ED Manager Environmental Services for Camila Ko
[2022-09-23] MEDS: famotidine 20 mg/2 mL INJ 40 MG IVP (08:14)
--- NOTE | 2022-09-23 08:18 | ECG_ITS ---
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 Measurements Intervals [place] Rate: 67 P: 50 GA: 132 QRS: 67 QRSD: 96 T: 93 QT: 379 QTc: 402 Interpretive Statements SINUS RHYTHM NONSPECIFIC T-WAVE ABNORMALITY Compared to ECG 09/16/2022 03:32:29 Short GA interval no longer present T-wave abnormality still present Electronically Signed On 09-24-2022 11:11:29 CDT by Rafaela Bradley M.D. [id number]
[2022-09-23 13:08] VITALS: BP 112/70
--- NOTE | 2022-09-23 13:08 | PC.NURSE ---
Pt was discharged and remained in the ER waiting for medicaid ride
[2022-09-23 15:44] VITALS: BP 147/73; PULSE 85; RESP 18; O2SAT 95
== END 2022-09-23 15:20 ==
PROVIDERS: Emergency Provider Emergency Medicine; PCP Internal Medicine
DX: L27.0 Generalized skin eruption due to drugs and medicaments taken internally (principal); T36.8X5A Adverse effect of other systemic antibiotics, initial encounter
CPT/HCPCS: 71045; 93005; 96374; 99284; J3490

== ENCOUNTER 2022-10-12 10:19 | Oncology outpatient (recurring) (ONCR) | payer MEDICARE, MEDICAID, SELFPAY ==
[2022-10-12 10:27] VITALS: BP 111/67; PULSE 58; RESP 18; TEMP 36.3; O2SAT 93
[2022-10-12 10:44] LABS: Basophils % 0.2 %; Eosinophils # 0.2 10^3/uL (0.0-0.8); Eosinophils % 2.3 %; Hemoglobin 9.7 g/dL (11.7-16.6); Lymphocytes # 0.7 10^3/uL (0.8-4.8); Lymphocytes % 8.1 %; Mean Corpuscular HGB Conc 31.3 g/dL (30.0-36.0); Mean Corpuscular Volume 86.4 fl (80-94); Mean Platelet Volume 9.7 fL (7.4-10.4); Monocytes # 0.5 10^3/uL (0.2-0.9); Monocytes % 5.3 %; Neutrophils # 7.06 10^3/uL (1.8-7.7); Neutrophils % 83.6 %; Nucleated Red Blood Cells % 0 %; Platelet Count 206 10^3/cmm (130-400); Red Blood Count 3.59 10^6/uL (4.1-5.3); Red Cell Distribution Width 13.6 % (12.1-15.1); White Blood Count 8.4 10^3/uL (4.0-10.0)
[2022-10-12 11:30] LABS: Ferritin 244 ng/mL (30-400); Iron 24 ug/dL (59-158); Percent Saturation 9.1 % (20-50); Total Iron Binding Capacity 262 mcg/dl; Unsaturated Iron Binding 238 ug/dL (112-347); Vitamin B12 667 pg/mL (232-1245)
== END 2022-10-12 23:59 | disposition home or self-care (01) ==
PROVIDERS: PCP Internal Medicine; Visit Provider Internal Medicine Hematology & Oncology
DX: D50.9 Iron deficiency anemia, unspecified (principal); I26.99 Other pulmonary embolism without acute cor pulmonale; Z79.01 Long term (current) use of anticoagulants; J44.9 Chronic obstructive pulmonary disease, unspecified; Z79.899 Other long term (current) drug therapy; Z99.81 Dependence on supplemental oxygen; Z87.891 Personal history of nicotine dependence; R04.2 Hemoptysis; Z85.118 Personal history of other malignant neoplasm of bronchus and lung; Z99.3 Dependence on wheelchair
CPT/HCPCS: 36415; 82607; 82728; 83540; 83550; 85025; 99214

== ENCOUNTER → 2022-10-22 13:37 | Outpatient (BNVA) | payer MEDICARE, MEDICAID, SELFPAY | PROVIDERS: PCP Internal Medicine; Visit Provider Internal Medicine Cardiovascular Disease | DX: I25.10 Atherosclerotic heart disease of native coronary artery without angina pectoris (principal); I50.40 Unspecified combined systolic (congestive) and diastolic (congestive) heart failure; Z87.891 Personal history of nicotine dependence | CPT/HCPCS: 99214 ==

== ENCOUNTER 2022-10-31 09:46 | Outpatient (CLI) | payer MEDICARE, MEDICAID, SELFPAY ==
--- NOTE | 2022-10-31 10:00 | CTR_ITS ---
PROCEDURE INFORMATION: Exam: CT Chest Without Contrast; Diagnostic Exam date and time: 10/31/2022 10:33 AM Age: 72 years old Clinical indication: Condition or disease; Lung condition and disease; Cancer of the lung; Right; Unspecified; Primary cancer: Lung cancer; Prior surgery; Surgery date: 6+ months; Surgery type: RT lung, heart stents; Additional info: 6 month f/u, 04/25/2022 CT chest: TECHNIQUE: Imaging protocol: Diagnostic computed tomography of the chest without contrast. Radiation optimization: All CT scans at this facility use at least one of these dose optimization techniques: automated exposure control; mA and/or kV adjustment per patient size (includes targeted exams where dose is matched to clinical indication); or iterative reconstruction. REPORTING DATA: Count of CT and Cardiac NM exams in prior 12 months: This patient has received 4 known CTs and 0 known cardiac nuclear medicine studies in the 12 months prior to the current study. COMPARISON: 1. CT chest wo con [id number] 04/25/2022 9:[address] angio chest PE protcl [id number] 02/15/2022 11:[address] chest wo con [id number] 01/25/2022 10:[address] angio chest PE protcl [id number] 11/15/2021 2:01 PM RADIATION DOSE METRICS: Total DLP (mGy-cm): 324.41 FINDINGS: Lungs: Emphysematous disease. Patient status post right lower lobectomy. Interval development of an irregularly shaped solid nodule measuring 10 x 8 x 11 mm in the posterior basal segment of the left lower lobe (axial series 5, image 28). Persistent masslike consolidation, measuring 5.1 x 2.9 x 2.7 cm, with likely some degree of atelectasis in the medial basal segment of the left lower lobe (axial series 5, image 48). This is overall increased in size compared to prior exam when it measured 3.7 x 2.0 x 1.9 cm, however difficult to determine if this is masslike enlargement or increased atelectasis. Pleural spaces: No pleural effusion. No pneumothorax. Heart: The heart is within normal limits for size. There is no evidence of pericardial abnormality. Coronary arteries: Coronary artery calcifications noted. Lymph nodes: Calcified mediastinal and hilar lymph nodes noted. Vasculature: Unremarkable. No aortic aneurysm. Bones/joints: Multilevel degenerative changes in the spine. Partially visualized vertebroplasty changes noted at L2. Soft tissues: Unremarkable. CT/CT chest wo con [id number] IMPRESSION: 1. Interval development of an irregularly shaped solid nodule measuring 10 x 8 x 11 mm in the posterior basal segment of the left lower lobe (axial series 5, image 28). Consider follow-up PET-CT for further evaluation. 2. Persistent masslike consolidation, measuring 5.1 x 2.9 x 2.7 cm, with likely some degree of atelectasis in the medial basal segment of the left lower lobe (axial series 5, image 48). This is overall increased in size compared to prior exam when it measured 3.7 x 2.0 x 1.9 cm, however difficult to determine if this is mass enlargement or increased atelectasis. Recommend attention on follow-up PET-CT. COMMENTS: In the absence of a history or active diagnosis of lung cancer, it is recommended that this patient with emphysema be evaluated for enrollment in a low dose CT lung cancer screening program.
== END 2022-10-31 09:47 | disposition home or self-care (01) ==
PROVIDERS: PCP Internal Medicine; Visit Provider Internal Medicine Pulmonary Disease
DX: C34.90 Malignant neoplasm of unspecified part of unspecified bronchus or lung (principal); R91.8 Other nonspecific abnormal finding of lung field
CPT/HCPCS: 71250

== ENCOUNTER 2022-11-12 02:01 | Emergency (ER) | payer MEDICARE, MEDICAID, SELFPAY ==
[2022-11-12 02:04] VITALS: BP 132/73; PULSE 74; RESP 18; TEMP 36.9; O2SAT 94; BMI 23.7
--- NOTE | 2022-11-12 02:12 | XRR_ITS ---
PROCEDURE INFORMATION: Exam: XR Chest Exam date and time: 11/12/2022 2:14 AM Age: 72 years old Clinical indication: Shortness of breath; Prior surgery; Surgery date: 6+ months; Surgery type: RT lobectomy; Patient HX: C/O SOB. History of lung cancer. TECHNIQUE: Imaging protocol: Radiologic exam of the chest. Views: 1 view. COMPARISON: CT chest [facility] [id number] 10/31/2022 10:33 AM FINDINGS: Lungs: Left lower lobe paraspinous mass noted on recent CT scan is not well visualized on today's chest x-ray. Pleural spaces: Right apical pleural and/or parenchymal scarring. Heart/Mediastinum: Some loss of volume in the right hemithorax with shift of the heart and mediastinum to the right consistent with CT scan findings of previous partial right pneumonectomy. Bones/joints: Previous right posterior rib resections. Other findings: Patient rotation to the right. XR/XR chest 1V portable [id number] IMPRESSION: 1. Some loss of volume in the right hemithorax with shift of the heart and mediastinum to the right consistent with CT scan findings of previous partial right pneumonectomy. 2. Previous right posterior rib resections. 3. Right apical pleural and/or parenchymal scarring. 4. Left lower lobe paraspinous mass noted on recent CT scan is not well visualized on today's chest x-ray.
--- NOTE | 2022-11-12 02:54 | ED_ITS ---
HPI - SOB/Dyspnea General: Chief Complaint: Shortness of Breath/Dyspnea Stated Complaint: Low O2 Time Seen by Provider: 11/12/22 02:07 Source: patient History of Present Illness: HPI Narrative: 72-year-old male with a history of oxygen dependent COPD. He has chronic respiratory failure. He was more short of breath this morning early despite being on his oxygen. He had turned his oxygen up himself. This did not seem to give him much relief. No fever. Some increased cough. He received a DuoNeb treatment in route, which helped. MD elicited complaint: shortness of breath and cough Pertinent past history: COPD Onset (ago): hour(s) Severity: moderate Exacerbating factors: lying flat and exertion Relieving factors: oxygen and bronchodilators Known history of: COPD Associated symptoms: Reports abdominal pain (History of constipation), cough and orthopnea; Deny chest congestion, chest pain, fever(s) or vomiting Treatment prior to arrival: oxygen and bronchodilator Related Data: Home oxygen amount: 4 liters Review of Systems Const: Denies: fever(s) Card: Reports: orthopnea; Denies: chest pain Resp: Reports: dyspnea and non-productive cough; Denies: chest congestion GI: Reports: abdominal pain (History of constipation); Denies: vomiting Skin/Breast: Denies: rash PFSH ED PFSH: Medical History Acute and chronic respiratory failure with hypercapnia Acute exacerbation of chronic obstructive airways disease Atherosclerosis of coronary artery 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 Hwang -[place] Hx of cholecystectomy Hx of eye surgery bilat-Dr. Navarrete did right and Dr. Perez in [place] Hx of kyphoplasty 07/05/[address] Agarin Status post colonoscopy (05/11/20) normal Family History Brother Cancer Diabetes Heart disease Social History Smoking and tobacco status: former smoker (smoked x 40 years) Quit status (tobacco): has quit using tobacco Year quit tobacco: 2015 - PPD x 45 Years Former quit date comment: Started at age 17 Second hand smoke exposure: No Smoking risk assessment/counseling performed?: Yes Alcohol intake: former Year of sobriety/quit date alcohol: 2013 Former alcohol use details: beer Substance/Drug Use: never Lives independently: Yes Household members: none Marital status: service: No Current occupational status: disabled Do you think of yourself as: Straight/Heterosexual Current gender identity: Male Physical Exam Const: COMMON NORMALS: no acute distress GENERAL APPEARANCE: cooperative and frail appearing; not ill appearing HENMT: COMMON NORMALS: normocephalic, atraumatic and Normal external nose present HEAD & SCALP: normocephalic and atraumatic FACE & SINUS: normal facial exam and face symmetric NOSE: Normal external nose present Eye: COMMON NORMALS: Equal, round and reactive pupils present and EOMs intact bilaterally PUPIL: Yes Equal, round and reactive pupils present Neck/C-Spine: GENERAL: Yes trachea midline Chest: CHEST: Yes Symmetrical chest wall rise Resp: COMMON NORMALS: normal respiratory effort, No retractions, No use of accessory muscles and clear to auscultation bilaterally AUSCULTATION: clear to auscultation bilaterally and diminished lung sounds Cardio: COMMON NORMALS: regular rate and regular rhythm RATE: regular rate RHYTHM: regular rhythm GI: COMMON NORMALS: Normal to inspection, nondistended, normoactive bowel sounds present Extremity: COMMON NORMALS: no pedal edema Neuro: LETA COMA SCALE: document GCS findings Leta coma scale eye opening: Spontaneous Leta coma scale verbal response: Orientated Leta coma scale motor response: Obey commands [place] coma scale total score: 15 SENSORY EXAM: Yes extremities (intact) Psych: COMMON NORMALS: speech normal SPEECH: Yes normal speech Skin: COMMON NORMALS: no rashes or lesions noted GENERAL SKIN EXAM: no rashes or lesions noted Course Vital Signs: Vital signs: Vital Signs Temperature 98.4 F 11/12/22 02:04 Pulse Rate 74 07/31/23 02:04 Respiratory Rate 18 11/12/22 02:04 Blood Pressure 132/73 11/12/22 02:04 Pulse Oximetry 94 11/12/22 02:04 Oxygen Delivery Me thod Nasal Cannula 11/12/22 02:04 Oxygen Flow Rate 4 11/12/22 02:04 MDM - SOB/Dyspnea Medical Decision Making Patient's oxygen saturations are 95% on home 4 L. He is in no respiratory distress. Chest x-ray shows no acute findings. He is given another nebulizer treatment. We will place him on a taper of steroid. He will be allowed discharge. Scheduled breathing treatments every 4 hours while awake for the next 48 hours. Return for worsening symptoms. Lab Data Labs/Radiology: Radiology Impressions Chest X-Ray 11/12/22 02:12 IMPRESSION: 1. Some loss of volume in the right hemithorax with shift of the heart and mediastinum to the right consistent with CT scan findings of previous partial right pneumonectomy. 2. Previous right posterior rib resections. 3. Right apical pleural and/or parenchymal scarring. 4. Left lower lobe paraspinous mass noted on recent CT scan is not well visualized on today's chest x-ray. Discharge Plan Discharge Patient Disposition: Home Clinical Impression: Lung mass, Acute exacerbation of chronic obstructive airways disease Condition: Stable Prescriptions: New ondansetron 4 mg film 4 mg PO DAILY PRN (Reason: nausea and vomiting) Qty: 10 0RF Medrol (Cesar) 4 mg tablets,dose pack See Rx Instructions .ROUTE .COMPLEX Qty: 21 0RF Rx Instructions: orally per package directions No Action Calamine Medicated 1-8 % lotion 1 applic topical TID PRN (Reason: itching) Qty: 177 6RF polyethylene glycol 3350 17 gram powder in packet 17 g PO EVERY OTHER DAY ferrous sulfate 325 mg (65 mg iron) tablet 325 mg PO EVERY OTHER DAY Fleet Enema 19-7 gram/118 mL enema 118 ml NM DAILY PRN (Reason: Constipation) Rx Instructions: give if no results from mom and dulcolax finasteride 5 mg tablet 5 mg PO BEDTIME acetaminophen 325 mg tablet 650 mg PO Q6H PRN (Reason: Pain) Tresiba FlexTouch U-100 100 unit/mL (3 mL) insulin pen 28 unit SUBCUT BEDTIME buspirone 5 mg tablet 5 mg PO BID prednisone 20 mg tablet 20 mg PO DAILY PRN tramadol 50 mg tablet 50 mg PO Q6H PRN lorazepam [Ativan] 0.5 mg tablet 0.5 mg PO BID lorazepam [Ativan] 0.5 mg tablet 0.5 mg PO BID PRN diphenhydramine HCl [Benadryl] 25 mg capsule 25 mg PO TID PRN alendronate 70 mg Tablet 70 mg PO Q7D Rx Instructions: ON SATURDAY cholecalciferol (vitamin D3) [Vitamin D3] 25 mcg (1,000 unit) Tablet 25 mcg PO DAILY@06 ipratropium-albuterol 0.5 mg-3 mg(2.5 mg base)/3 mL Solution For Nebulization 3 ml INHALATION TID albuterol sulfate 2.5 mg /3 mL (0.083 %) solution for nebulization 2.5 mg inhalation Q4H PRN (Reason: Shortness Of Breath) morphine 30 mg tablet extended release 30 mg PO TID@07,15, guaifenesin 100 mg/5 mL Liquid 100 mg PO Q4H PRN (Reason: Cough) budesonide 0.5 mg/2 mL Suspension For Nebulization 0.5 mg inhalation BID clopidogrel 75 mg Tablet 75 mg PO DAILY Qty: 90 2RF aspirin 81 mg Tablet,Delayed Release (Dr/Ec) 81 mg PO DAILY Qty: 90 3RF nitroglycerin 0.4 mg tablet, sublingual 0.4 mg sublingual Q5M PRN (Reason: chest pain) Qty: 30 6RF Rx Instructions: do not exceed 3 doses per episode losartan 25 mg tablet 25 mg PO DAILY@07 escitalopram oxalate 20 mg Tablet 20 mg PO DAILY@07 magnesium hydroxide [Milk of Magnesia] 400 mg/5 mL Suspension 30 ml PO Q72H PRN (Reason: if no bm in 3 days) Rx Instructions: do not give to renal patients-go to dulcolax orders bisacodyl [Dulcolax (bisacodyl)] 5 mg tablet,delayed release (DR/EC) 5 mg PO DAILY PRN (Reason: Constipation) Rx Instructions: if no results from mom potassium chloride 10 mEq tablet extended release 10 meq PO DAILY@07 tamsulosin 0.4 mg capsule 0.4 mg PO BEDTIME Dulcolax (bisacodyl) 10 mg Suppository 10 mg NM DAILY PRN (Reason: Constipation) Rx Instructions: if no results from mom omeprazole 20 mg Capsule,Delayed Release(Dr/Ec) 20 mg PO DAILY@07 Lasix 20 mg Tablet 20 mg PO DAILY Novolog FlexPen U-100 Insulin 100 unit/mL (3 mL) insulin pen See Rx Instructions .ROUTE .COMPLEX Rx Instructions: sliding scale before meals and at bedtime if blood sugar is less than 60 call md 150-200=0 units 201-250=2 units 251-300=4 units 301-350=6 units 351-400=8 units if blood sugar is greater than 400 give 8 units call pcp is bs is <60 and >400 if symptomatic rosuvastatin 20 mg tablet 20 mg PO BEDTIME Marshall Cough Drops 5.8 mg Lozenge 5.8 mg MUCOUS MEMBRANE Q2H PRN (Reason: Cough) Artificial Tears (PF) 0.1-0.3 % Dropperette 1 drp ophthalmic (eye) QID metoprolol succinate 50 mg tablet extended release 24 hr 50 mg PO DAILY@07 Trelegy Ellipta 100-62.5-25 mcg blister with device 1 inh inhalation DAILY@07 Discharge Orders: Discharge ED (Routine); Ordered 11/12/22 Ordered By: Ferny De La Torre Referrals: Daniel Leyva DO [Primary Care Provider] - 1-3 days Patient Instructions: COPD (Chronic Obstructive Pulmonary Disease) (ED) Activity Restrictions/Additional Instructions: Use albuterol every 4 hours while awake for the first 48 hours, then as needed. Return for worsening shortness of breath, development of chest pain, fever, other concerning symptoms. 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
[2022-11-12 03:49] VITALS: BP 131/62; PULSE 68; RESP 18; O2SAT 96
== END 2022-11-12 05:07 | disposition home or self-care (01) ==
PROVIDERS: Emergency Provider Emergency Medicine; PCP Internal Medicine
DX: J44.1 Chronic obstructive pulmonary disease with (acute) exacerbation (principal); R91.8 Other nonspecific abnormal finding of lung field; Z79.82 Long term (current) use of aspirin; Z79.02 Long term (current) use of antithrombotics/antiplatelets; Z79.4 Long term (current) use of insulin; Z87.891 Personal history of nicotine dependence; I25.10 Atherosclerotic heart disease of native coronary artery without angina pectoris; E11.9 Type 2 diabetes mellitus without complications; Z99.81 Dependence on supplemental oxygen; Z85.118 Personal history of other malignant neoplasm of bronchus and lung
CPT/HCPCS: 71045; 99283

== ENCOUNTER 2022-11-12 09:00 | Oncology outpatient (recurring) (ONCR) | payer MEDICARE, MEDICAID, SELFPAY ==
[2022-11-12 09:27] VITALS: BP 121/64; PULSE 59; RESP 16; TEMP 35.9; O2SAT 97
[2022-11-12] MEDS: ferric carboxy (IVPB) 750 MG in sodium chloride 0.9% (100 ml) 100 ML 345 MG IV (09:54)
[2022-11-12 10:20] VITALS: BP 133/67; PULSE 63; RESP 18; TEMP 35.9; O2SAT 96
== END 2022-11-12 23:59 | disposition home or self-care (01) ==
PROVIDERS: PCP Internal Medicine; Visit Provider Internal Medicine Hematology & Oncology
DX: D50.9 Iron deficiency anemia, unspecified (principal)
CPT/HCPCS: 96365; J1439

== ENCOUNTER 2022-11-17 06:06 | Outpatient (CLI) | payer MEDICARE, MEDICAID, SELFPAY ==
--- NOTE | 2022-11-17 08:30 | PETR_ITS ---
PROCEDURE INFORMATION: Exam: PET/CT Skull Base to Mid-thigh Exam date and time: 11/17/2022 8:23 AM Age: 72 years old Clinical indication: Restaging of lung cancer with primary tumor in the right lung status post right lower lobectomy with new malignant mass in the left lower lobe found in November 2021. New abnormal finding on the last CT chest on 10/31/2022 (new 1 cm nodule in the left lower lobe). LABS AND CLINICAL REPORTS: Glucose: 152 mg/dl Treatment strategy for malignancy (PET staging): Initial Staging (PI) TECHNIQUE: Imaging protocol: Following at least four-hour fasting and following the injection of radiopharmaceutical, low dose CT images were obtained. Then, PET images were obtained. Attenuation corrected images were constructed using the CT scan. Fused images of PET and CT were reviewed. The standardized uptake values (SUV) reported below are maximum values within a region of interest, expressed in gm/ml. Exam includes orbital meatal line to mid-thigh. Radiopharmaceutical: 13.4 mCi F-18 FDG (Fluorodeoxyglucose), IV. Time of imaging post radiopharmaceutical administration: 1 hour Injection site: Right antecubital vein COMPARISON: CT chest 10/31/2022 and 04/25/2022, CTA chest 11/15/2021 FINDINGS: Brain: Visualized brain has normal physiologic uptake. Pharynx: No abnormal uptake. Larynx: No abnormal uptake. Lungs, pleura and trachea: 1 cm nodule in the superior segment of the left lower lobe noted on 10/31/2022 is not appreciated on the current exam. FDG avid subpleural posteromedial mass in the left lower lobe measures 8.9 SUV compatible with malignancy. Measures 5 x 2.2 cm stable since 10/31/2022 previously measuring 3.8 x 1.8 cm on on 04/25/2022 and 3.8 x 1.6 cm on 11/14/2021. Stable changes after right lower lobectomy. Stable pleural thickening in the base of the right hemithorax with no significant effusion. Heart: Normal physiologic uptake. There is no cardiomegaly. Severe coronary artery calcification is present. There is no pericardial effusion. Mediastinal space: See below in lymph nodes . Stable chronic mediastinal shift to the right. Liver: No abnormal uptake. Gallbladder and bile ducts: No abnormal uptake. Status post cholecystectomy.There is stable common bile duct dilatation with no dilatation of intrahepatic bile ducts suggestive of nonobstructive finding post cholecystectomy. Pancreas: No abnormal uptake. Spleen: No abnormal uptake. No splenomegaly. Adrenal glands: No abnormal uptake. No nodules. Kidneys and ureters: Normal physiologic uptake. No hydronephrosis. Stomach and bowel: About 2.9 x 2.2 cm oval-shaped discrete focus of intense uptake of 18.4 SUV in the cecum on image 119 shows no obvious corresponding soft tissue mass on CT. Long segment of increased uptake in the small bowel with no corresponding CT abnormality are benign. No abnormal dilatation of the bowel. Vasculature: No abnormal uptake. No aortic aneurysm. Lymph nodes: FDG avid left hilar and mediastinal lymphadenopathy is compatible with metastatic disease. About 2 x 1.4 cm left hilar lymph node measures 13.9 SUV. There are FDG avid mediastinal lymph nodes (1.2 cm left upper paratracheal node on image 41 with uptake of 6.5 SUV, 0.6 cm right paratracheal lymph node on image 51 with uptake of 4 SUV, subcarinal lymph node on image 58 with anterior-posterior diameter of 1.4 cm and uptake of 7.8 SUV, lower paraesophageal lymph node on axial image 67 with short axis of 1 cm and uptake of 7.6 SUV. No FDG avid lymphadenopathy in the head, neck, abdomen, pelvis, and extremities. Stable sequela of exposure to granulomatous disease with small calcifications in the paratracheal lymph nodes. Bones/joints: Status post L2 vertebroplasty with diffusely increased uptake of 4.9 SUV within L2 vertebral body. Stable postsurgical changes in the right ribcage with partial resection of the right ribs 6 and 7. Soft tissues: No abnormal uptake in the visualized head, neck, chest, abdomen, pelvis, and extremities. Small fat containing left inguinal hernia. [facility] [id number] IMPRESSION: 1. There is FDG avid malignancy in the chest including 5 cm left lower lobe mass measuring 8.9 SUV, and left hilar and mediastinal lymphadenopathy with the highest uptake of 13.9 SUV. 1 cm lung nodule in the left lower lobe that was new on 10/31/2022 has resolved in the short interval suggestive of benign inflammatory finding. 2. Intense oval shaped focus of increased uptake in the cecum (18.4 SUV). Correlation with colonoscopy is recommended. 3. Mildly increased uptake of 4.9 SUV within L2 vertebral body post vertebroplasty with no new morphologic changes since prior exams is suggestive of benign finding.
== END 2022-11-17 06:07 | disposition home or self-care (01) ==
LOC: RAD 11-19 06:07
PROVIDERS: PCP Internal Medicine; Visit Provider Internal Medicine Pulmonary Disease
DX: R91.8 Other nonspecific abnormal finding of lung field (principal)
CPT/HCPCS: 78815; A9552

== ENCOUNTER → 2022-11-21 09:42 | Outpatient (BNVA) | payer MEDICARE, MEDICAID, SELFPAY | PROVIDERS: PCP Internal Medicine; Visit Provider Internal Medicine Pulmonary Disease | DX: R91.8 Other nonspecific abnormal finding of lung field (principal); J44.9 Chronic obstructive pulmonary disease, unspecified; J96.11 Chronic respiratory failure with hypoxia; L85.3 Xerosis cutis; I25.10 Atherosclerotic heart disease of native coronary artery without angina pectoris; Z87.891 Personal history of nicotine dependence; Z86.711 Personal history of pulmonary embolism; Z79.01 Long term (current) use of anticoagulants; Z90.2 Acquired absence of lung [part of]; Z85.118 Personal history of other malignant neoplasm of bronchus and lung; Z99.81 Dependence on supplemental oxygen | CPT/HCPCS: 99214 ==

== ENCOUNTER 2022-11-27 08:29 | Day surgery (SDC) | payer MEDICARE, MEDICAID, SELFPAY ==
[2022-11-26 13:15] VITALS: BMI 25.7
[2022-11-27] VITALS (14 sets, daily range): BP systolic 119–173; BP diastolic 60–83; PULSE 62–88; RESP 16–22; TEMP 36.3–36.4; O2SAT 89–100
[2022-11-27] MEDS: sodium chloride 0.9% 1,000 ML 30 ML IV (09:10)
[2022-11-27 09:19] LABS: Glucose Point of Care 186 mg/dL (70-110)
--- NOTE | 2022-11-27 09:40 | W.PM.OPSUD ---
Surgery/Procedure H&P Update DATE OF PROCEDURE: November 27, 2022 DATE H&P PERFORMED: 11/21/22 H&P UPDATE INFORMATION: I have reviewed H&P completed within last 30 days, I have examined patient prior to procedure and No changes to prior documentation CHANGES TO PREVIOUS DOCUMENTATION: PET CT 11/17/22: FDG avid malignancy in the chest including 5 cm left lower lobe mass measuring 8.9 SUV, and left hilar and mediastinal lymphadenopathy with the highest uptake of 13.9 SUV.? 1 cm lung nodule in the left lower lobe that was new on 10/31/2022 has resolved in the short interval suggestive of benign inflammatory finding.. ? Intense oval shaped focus of increased uptake in the cecum (18.4 SUV).?Correlation with colonoscopy is recommended. ? Mildly increased uptake of 4.9 SUV within L2 vertebral body post vertebroplasty with no new morphologic changes since prior exams is suggestive of benign finding. PRIMARY INDICATION FOR PROCEDURE: To rule out malignancy PLANNED PROCEDURE: Operation Date: 11/27/22 09:50 Proposed Procedures p EBUS [id number], [id number], [id number], 45672, R91.8(Not Applicable) - Sameer Swift MD
[2022-11-27] MEDS: albuterol 2.5 mg/3 mL Neb INHALATION ×2 (09:52→13:19)
--- NOTE | 2022-11-27 10:00 | P.ANESASSM_ITS ---
Pre-Anesthetic Assessment Height/Weight: Height 1.8 m Weight 83.915 kg Temp Pulse Resp BP Pulse Ox O2 Del Method O2 Flow Rate 97.6 F 62 16 134/67 100 Nasal Cannula 4 11/27/22 08:51 11/27/22 09:53 11/27/22 09:50 11/27/22 08:51 11/27/22 09:50 11/27/22 09:50 11/27/22 09:50 Operation Date: 11/27/22 09:50 Proposed Procedures p EBUS [id number], 10287, 02851, 63126, R91.8(Not Applicable) - Sameer Moreau DatarMD Familial anesthetic complications: none Was Beta Deniz taken within 24 hours: N/A Was Clonidine taken within 24 hours: N/A Last intake: Intake Last Liquid Date 11/26/22 Last Liquid Time 17:00 Last Solid Date 11/26/22 Last Solid Time 17:00 Social No alcohol and No tobacco (h/o smoking) Exam alert, oriented x 3 and regular rate & rhythm Airway Submandibular: within normal limits Cervical ROM: within normal limits Mallampati: Class I Dentition: false Pulmonary Chronic Obstructive Pulmonary Disease Home O2 4L, lung CA CV/HEM Coronary Artery Disease (stent) and Hypertension GI Gastroesophageal Reflux Disease Metabolic Diabetes Mellitus and Hyperlipidemia [facility] [place] Lower Back Pain and Osteoarthritis/DJD Neuropsych Chronic pain/opioid Anesthetic Plan ASA status: 3 Anesthesia: General Medications/Allergies Home Medications Medication Instructions Recorded Confirmed Last Taken Type alendronate 70 mg tablet 70 mg PO Q7D 04/16/19 11/27/22 11/21/22 History cholecalciferol (vitamin D3) 25 25 mcg PO DAILY@11/15/21 11/27/22 11/26/22 History mcg (1,000 unit) tablet (Vitamin D3) ferrous sulfate 325 mg (65 mg 325 mg PO EVERY OTHER DAY 01/18/22 11/27/22 11/26/22 History iron) tablet polyethylene glycol 3350 17 gram 17 g PO EVERY OTHER DAY 01/18/22 11/27/22 11/26/22 History oral powder packet albuterol sulfate 2.5 mg/3 mL 2.5 mg inhalation Q4H PRN 02/16/22 11/27/22 10/06/22 History (0.083 %) solution for nebulization Shortness Of Breath budesonide 0.5 mg/2 mL suspension 0.5 mg inhalation BID 02/16/22 11/27/22 11/27/22 History for nebulization guaifenesin 100 mg/5 mL oral liquid 100 mg PO Q4H PRN Cough 02/16/22 11/27/22 2 Weeks Ago History ~04/12/22 ipratropium 0.5 mg-albuterol 3 mg 3 ml inhalation TID 02/16/22 11/27/22 11/27/22 History (2.5 mg base)/3 mL nebulization soln morphine 30 mg tablet,extended 30 mg PO TID@02/16/22 11/27/22 11/27/22 History release aspirin 81 mg tablet,delayed 81 mg PO DAILY #90 tabs 02/20/22 11/27/22 11/26/22 Rx release clopidogrel 75 mg tablet 75 mg PO DAILY #90 tabs 02/20/22 11/27/22 11/22/22 Rx nitroglycerin 0.4 mg sublingual 0.4 mg sublingual Q5M PRN chest 02/20/22 11/27/22 Unknown Rx tablet pain #30 tabs acetaminophen 325 mg tablet 650 mg PO Q6H PRN Pain 04/17/22 11/27/22 1 Week Ago History ~04/19/22 finasteride 5 mg tablet 5 mg PO BEDTIME 04/17/22 11/27/22 11/26/22 History pramoxine-calamine 1 %-8 % lotion 1 applic topical TID PRN itching 05/24/22 Unknown Rx (Calamine Medicated) #177 mL escitalopram oxalate 20 mg tablet 20 mg PO DAILY@07/13/22 11/27/22 11/26/22 History losartan 25 mg tablet 25 mg PO DAILY@07/13/22 11/27/22 11/26/22 History magnesium hydroxide 400 mg/5 mL 30 ml PO Q72H PRN if no bm in 3 07/13/22 11/27/22 Unknown History oral suspension (Milk of Magnesia) days bisacodyl 10 mg rectal suppository 10 mg [place] DAILY PRN Constipation 09/05/22 11/27/22 Unknown History (Dulcolax (bisacodyl)) dextran 70-hypromellose (PF) 0.1 1 drp ophthalmic (eye) QID 09/05/22 11/27/22 11/27/22 History %-0.3 % eye drops in a dropperette (Artificial Tears (PF)) fluticasone fur. 100 mcg-umeclid 1 inh inhalation DAILY@09/05/22 11/27/22 11/26/22 History 62.5 mcg-vilant 25 mcg inhalat.powder (Trelegy Ellipta) furosemide 20 mg tablet (Lasix) 20 mg PO DAILY 09/05/22 11/27/22 11/26/22 History insulin aspart U-100 100 unit/mL See Rx Instructions .Route .COMPLEX 09/05/22 11/27/22 11/27/22 History (3 mL) subcutaneous pen (Novolog FlexPen U-100 Insulin aspart) menthol 5.8 mg lozenges ([place] 5.8 mg mucous membrane Q2H PRN 09/05/22 11/27/22 Unknown History Cough Drops) Cough metoprolol succinate 50 mg 50 mg PO DAILY@09/05/22 11/27/22 11/27/22 History tablet,extended release 24 hr omeprazole 20 mg capsule,delayed 20 mg PO DAILY@09/05/22 11/27/22 11/26/22 History release potassium chloride 10 mEq 10 meq PO DAILY@09/05/22 11/27/22 11/26/22 History tablet,extended release rosuvastatin 20 mg tablet 20 mg PO BEDTIME 09/05/22 11/27/22 11/26/22 History tamsulosin 0.4 mg capsule 0.4 mg PO BEDTIME 09/05/22 11/27/22 11/26/22 History bisacodyl 5 mg tablet,delayed 5 mg PO DAILY PRN Constipation 10/12/22 11/27/22 Unknown History release (Dulcolax (bisacodyl)) buspirone 5 mg tablet 5 mg PO BID 10/12/22 11/27/22 11/26/22 History ondansetron 4 mg oral soluble film 4 mg PO DAILY PRN nausea and 11/12/22 11/27/22 Unknown Rx vomiting #10 ea insulin degludec 100 unit/mL (3 28 unit SUBCUT BEDTIME 11/27/22 11/27/22 11/25/22 History mL) subcutaneous pen (Tresiba FlexTouch U-100 insulin) Allergies Allergy/AdvReac Type Severity Reaction Status Date / Time tree and shrub pollen Allergy ADR-Headach Verified 11/21/22 10:24 e Current Medications Generic Name Dose Route Start Last Admin Trade Name Freq PRN Reason Stop Dose Admin Sodium Chloride 1,000 mls @ 30 mls/hr 11/27/22 08:45 11/27/22 09:10 Sodium Chloride 0.9% IV 11/28/22 08:44 30 mls/hr .Q24H CÉSAR Administration PFSH Anesthesia Medical History (Updated 11/24/22 @ 17:56 by Sameer Swift MD) Acute and chronic respiratory failure with hypercapnia Acute exacerbation of chronic obstructive airways disease Atherosclerosis of coronary artery 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 Hwang -[place] Hx of cholecystectomy Hx of eye surgery bilat-Dr. Navarrete did right and Dr. Perez in [place] Hx of kyphoplasty 07/05/[address] Powell Status post colonoscopy (05/11/20) normal Family History Brother Cancer Diabetes Heart disease Social History Smoking and tobacco status: former smoker (smoked x 40 years) Quit status (tobacco): has quit using tobacco Year quit tobacco: 2015 - PPD x 45 Years Former quit date comment: Started at age 17 Second hand smoke exposure: No Smoking risk assessment/counseling performed?: Yes Alcohol intake: former Year of sobriety/quit date alcohol: 2013 Former alcohol use details: beer Substance/Drug Use: never Lives independently: Yes Household members: none Marital status: service: No Current occupational status: disabled Do you think of yourself as: Straight/Heterosexual Current gender identity: Male Data Anesthesia Cardiac Studies: Echocardiogram 02/16/22
--- NOTE | 2022-11-27 12:31 | XRR_ITS ---
PROCEDURE INFORMATION: Exam: XR Chest Exam date and time: 11/27/2022 12:49 PM Age: 72 years old Clinical indication: Device placement; Other: Bronch; Prior surgery; Surgery date: Post-operative (0-2 days); Additional info: Post-op bronch TECHNIQUE: Imaging protocol: Radiologic exam of the chest. Views: 1 view. COMPARISON: 1. CR (CHEST, ) 11/12/2022 2:[address] chest [facility] [id number] 10/31/2022 10:33 AM 3. CR (CHEST, ) 09/23/2022 8:13 AM FINDINGS: Lungs: Stable partial right pneumonectomy changes with associated volume loss. Emphysema and diffuse reticulation throughout the lungs. No consolidation. Known left paraspinal mass seen to better advantage on comparison CT. Pleural spaces: No substantial pleural effusion or pneumothorax. Heart/Mediastinum: Unremarkable. No cardiomegaly. Bones/joints: Partial right 7th rib resection. No acute fracture. XR/XR chest 1V portable [id number] IMPRESSION: 1. No acute findings. 2. Chronic changes as above.
[2022-11-27] MEDS: lidocaine 1% INJ 10 mL (per mL) XX (12:33)
--- NOTE | 2022-11-27 12:33 | P.OP_ITS ---
Operative Report Date of procedure: November 27, 2022 Pre-op diagnosis: Suspected malignancy Post-op diagnosis: same Procedure done: 57196 Dx Bronchoscope w/BAL 47064 Bronchoscopy w/ therapeutic aspiration of the tracheobronchial tree (clearance of airway secretions, removal of mucus plugs) 53717 EBUS Sampling >=3 nodes Surgeon: Sameer Swift MD [facility] Brief History: Moses Cardoza is a 72-year-old gentleman comes for endobronchial ultrasound- guided biopsies for PET active left hilar and mediastinal lymphadenopathy. Mr. 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 His postop. Was complicated with pleural effusion for which she underwent decortication. Apparently this happened in [facility]. He has been following oncology as well as pulmonary services since then. Surveillance CT scans has been negative until mid November 2021 where he was admitted to hospital with shortness of breath diagnosed with pulmonary embolism started on Eliquis. CTA chest showed left lung spot too small to characterize. He got admitted in February 2022 for chest pain and underwent cardiac catheterization and received 1 JIHAN to LAD and since then he is on aspirin as well as clopidogrel. Repeat CT chest in February 2022 showed grossly stable 3.9 cm left lower lobe mass lesion. Another 3-month follow-up CT chest April 2022-stable medial left lower lobe mass 3.8 x 1.4 cm no increase in size since November 2021.? This may be area of atelectasis. I have seen patient for the first time in May 2022 in pulmonary clinic- given the left lower lobe mass stable since November 2021 and February 2022 and patient recently started on clopidogrel 3 months ago for his stenting LAD-I repeated a 6 months follow-up CT chest 10/31/2022 which showed interval development of irregularly shaped solid nodule measuring 10 x 8 x 11 mm in poste rior basal segment of left lower lobe.? Persistent masslike consolidation measuring 5.1 x 2.9 x 2.7 cm with likely some degree of atelectasis in the medial basal segment of left lower lobe.? This is also overall increased in size compared to prior exam April 2022.? It was difficult to determine if this is mass enlargement or increased atelectasis. Subsequently obtained PET/CT scan 11/17/2022: Which showed FDG avid malignancy 5 cm left lower lobe with SUV 8.9.? Left hilar and mediastinal lymphadenopathy with highest uptake of 13.9 SUV.? The new 1 cm lung nodule in left lower lobe seen on prior CT scan 10/31/2022-has essentially resolved.? Also noted oval- shaped focus of increased uptake in cecum 18.4 SUV.? There is mildly increased uptake of 4.9 SUV within the L2 vertebral body post vertebroplasty with no new morphologic changes suggestive of benign findings. I scheduled for endobronchial ultrasound-guided biopsies of left hilar/mediastinal PET active lesions for today. Patient has completed his Eliquis treatment for pulmonary embolism that was detected in November 2021. He has been on clopidogrel since February 2022 for LAD stent; as it is more than 6 months-I have discussed with Dr. Yo his cardiology and told patient to hold clopidogrel for 5 days prior to procedure. Procedure: 25574 Dx Bronchoscope w/BAL 61002 Bronchoscopy w/ therapeutic aspiration of the tracheobronchial tree (clearance of airway secretions, removal of mucus plugs) 68671 EBUS Sampling >=3 nodes Indication: PET active mediastinal/hilar lymph nodes-rule out Malignancy Anesthesia: General anesthesia. Local anesthesia: The vocal cords, will in the right and left mainstem bronchi were anesthetized with topical 1% lidocaine Description of the procedure: The procedure was explained to the patient and the consent was obtained. The patient was brought to the OR. The patient underwent induction for general anesthesia (laryngeal mask airway (LMA) was placed. The bronchoscope was advanced through the LMA. The mobile vocal cords were visualized. 1 mL 1% topical lidocaine instilled and scope passed through vocal cords. Patient started coughing and so instilled another 2 mL 1% local lidocaine in trachea. Tracheal mucosa appeared normal, no endotracheal lesion was seen. The will was sharp. 1 mL each of 1% lidocaine was instilled in the trachea the right and left mainstem bronchi for local anesthesia. In a systematic manner bilateral bronchial tree was then examined. The bronchoscope was introduced into the right mainstem bronchus. The right upper lobe, right middle lobe were examined up to the third subsegmental level and no abnormalities were identified. The right lower lobe bronchi openings were occluded as patient had previous right lower lobectomy. Overall the mucosa appeared normal with no endobronchial lesions, active bleeding or mucous plugs. There were clear secretions which were suctioned right away(40538). The bronchoscope was advanced into the left mainstem bronchus. There is a endobronchial lesion which is completely occluding left lower lobe airway. It is friable and started to bleed as soon as bronchoscope touched the surface. The left upper lobe, and lingula were examined up to the third subsegmental level and no abnormalities were identified. Mucosa of left upper lobe and lingula appeared normal with no endobronchial lesion. There were clear secretions which were suctioned right away(15593). Bronchoalveolar lavage was taken from left lower lobe. Bronchoscope was retracted and Endobronchial Ultrasound (EBUS)(84556 ) was introduced. Identified a large hypoechoic mass in station 7, station 11 L, 4L. Using [id number] least 4 passes were made from each station and obtained biopsies from all 3 stations (75047); There was some evidence of bleeding which is controlled with instillation of cold saline. After making sure there is no active bleeding, bronchoscope retracted and procedure terminated. Samples: 1. Bronchoalveolar lavage (88704) was performed after wedging the bronchoscope at the entrance of left lower lobe. 30 mL of saline was instilled, fluid return was 10 mL. Bronchoalveolar lavage specimen was sent for cell count and differential, gram stain and culture, cytology EBUS guided [id number] were taken from 3 lymph node stations ([id number]): 1. station 7: touch prep -we do not have any onsite pathology for rapid slide review; so all of the material were placed in formalin for histopathology; 2. Station 4L: -we do not have any onsite pathology for rapid slide review; so all of the material were placed in formalin for histopathology; 3. Station 11 L:-we do not have any onsite pathology for rapid slide review; so all of the material were placed in formalin for histopathology; Complications: None.The patient was extubated and brought to the PACU in stable condition. Disposition: Patient can be discharged home in stable condition. Pt is aware that I am going to call them to update final biopsy results once available. I have informed patient to restart clopidogrel from tomorrow. He verbalized understanding and agreed to do that Related Problem List Diagnoses (1) Suspected lung cancer:
[2022-11-27 12:41] LABS: Apprearance, Bronch Wash Cloudy (CLEAR); Color, Bronc Wash Red; Cyto Order Verification Order Verified
[2022-11-27 14:38] LABS: Other Cells, Bronch Wash 0 %; PATH Referral Yes; RBC Side Within 10% 10; WBC Within 10% 10
[2022-11-27 14:39] LABS: Total Cells Counted Bronch 200
--- NOTE | 2022-11-27 15:22 | ANE.PACU2 ---
Inpatient post-anesthesia follow up: Airway intact: Yes Vital signs: Temperature 97.4 F Pulse Rate 75 Respiratory Rate 22 Blood Pressure 119/75 Pulse Oximetry 93 Oxygen Delivery Me thod Nasal Cannula Oxygen Flow Rate 3 Fraction of Inspir ed Oxygen Hydration adequate: Yes Nausea and vomiting: No Pain level: 2 Mental status: Baseline
[2022-12-05 12:48] LABS: PD-L1 (Clone 22C3) by IHC BBPL See Report
== END 2022-11-27 13:52 | disposition home or self-care (01) ==
PROVIDERS: PCP Internal Medicine; Visit Provider Internal Medicine Pulmonary Disease
PROC: BB4BZZZ Ultrasonography of Pleura (ICD-10-PCS; principal; 2022-11-27 09:50)
PROC: 0BJ08ZZ Inspection of Tracheobronchial Tree, Via Natural or Artificial Opening Endoscopic (ICD-10-PCS; CPT 31622; 2022-11-27 09:50)
DX: C77.1 Secondary and unspecified malignant neoplasm of intrathoracic lymph nodes (principal); R59.0 Localized enlarged lymph nodes; R91.8 Other nonspecific abnormal finding of lung field; J44.9 Chronic obstructive pulmonary disease, unspecified; K21.9 Gastro-esophageal reflux disease without esophagitis; I25.10 Atherosclerotic heart disease of native coronary artery without angina pectoris; I10 Essential (primary) hypertension; Z79.891 Long term (current) use of opiate analgesic; Z79.82 Long term (current) use of aspirin; Z79.02 Long term (current) use of antithrombotics/antiplatelets; E11.9 Type 2 diabetes mellitus without complications; E78.5 Hyperlipidemia, unspecified; Z79.4 Long term (current) use of insulin; Z87.891 Personal history of nicotine dependence
CPT/HCPCS: 31624; 31645; 31653; 36416; 71045; 80503; 82962; 87070; 87205; 88112; 88305; 88341; 88342; 89050; 94640; J1100; J2405; J2704; J3490; J7030; J7613

== ENCOUNTER 2022-12-03 09:45 | Oncology outpatient (recurring) (ONCR) | payer MEDICARE, MEDICAID, SELFPAY ==
[2022-11-19 09:25] VITALS: BP 129/73; PULSE 56; RESP 18; TEMP 36.8; O2SAT 96
[2022-11-19] MEDS: ferric carboxy (IVPB) 750 MG in sodium chloride 0.9% (100 ml) 100 ML 345 MG IV (09:37)
[2022-11-19] MEDS: sodium chloride 0.9% 250 ML 75 ML IV (09:37)
[2022-11-19 10:15] VITALS: BP 143/72; PULSE 55; RESP 16; TEMP 36.7; O2SAT 97
== END 2022-12-13 23:59 | disposition home or self-care (01) ==
PROVIDERS: PCP Internal Medicine; Visit Provider Internal Medicine Medical Oncology
DX: D64.9 Anemia, unspecified (principal); R91.8 Other nonspecific abnormal finding of lung field; M54.42 Lumbago with sciatica, left side; G89.29 Other chronic pain; C34.90 Malignant neoplasm of unspecified part of unspecified bronchus or lung; J96.11 Chronic respiratory failure with hypoxia; Z79.899 Other long term (current) drug therapy
CPT/HCPCS: 36415; 96365; 99215; J1439; J7050

== ENCOUNTER 2022-12-08 04:57 | Emergency (ER) | payer MEDICARE, MEDICAID, SELFPAY ==
[2022-12-08 04:59] VITALS: BP 143/66; PULSE 65; RESP 20; TEMP 36.6; O2SAT 96; BMI 23.7
--- NOTE | 2022-12-08 05:08 | XRR_ITS ---
PROCEDURE INFORMATION: Exam: XR Chest Exam date and time: 12/08/2022 5:21 AM Age: 72 years old Clinical indication: Prior surgery; Surgery date: 1-6 months; Surgery type: RT lobectomy; Patient HX: C/O cough. History of lung cancer. TECHNIQUE: Imaging protocol: Radiologic exam of the chest. Views: 1 view. COMPARISON: CR XR chest 1V portable [id number] 11/27/2022 12:49 PM FINDINGS: Lungs: There is patchy dense consolidation at the left lung base with left upper lobe and right basilar increased markings also present. There is volume loss in the right hemithorax. Pleural spaces: Shadowing of the left hemidiaphragm may represent effusion. No pneumothorax. Heart/Mediastinum: Unremarkable. No cardiomegaly. Bones/joints: Unremarkable. XR/XR chest 1V portable [id number] IMPRESSION: Pneumonia.
[2022-12-08 05:15] LABS: Basophils % 0.2 %; Eosinophils # 0.2 10^3/uL (0.0-0.8); Eosinophils % 1.9 %; Hematocrit 33.7 % (37-53); Lymphocytes % 10.6 %; Mean Corpuscular HGB Conc 31.8 g/dL (30-55); Mean Corpuscular Volume 85.1 fl (82-101); Mean Platelet Volume 9.7 fL (7.4-10.4); Monocytes # 0.6 10^3/uL (0.2-0.9); Monocytes % 6.3 %; Neutrophils # 7.53 10^3/uL (1.8-7.7); Neutrophils % 80.7 %; Nucleated Red Blood Cells % 0 %; Platelet Count 174 10^3/cmm (157-399); Red Blood Count 3.96 10^6/uL (3.85-5.65); Red Cell Distribution Width 14.1 % (12.1-15.1); White Blood Count 9.34 10^3/uL (3.29-11.43)
[2022-12-08 05:34] LABS: INR 1.07 (0.8-1.2)
[2022-12-08 05:35] LABS: Partial Thromboplastin Time 28.6 SECONDS (23.9-36.7)
[2022-12-08 05:36] LABS: Lactic Sepsis W/Reflex 0.8 mmol/L (0.5-2.2)
[2022-12-08 05:37] LABS: Alanine Aminotransferase 8 U/L (0-41); Albumin Level 3.2 g/dL (3.5-5.2); Alkaline Phosphatase 77 U/L (40-130); Anion Gap 8.5 (5-19); Aspartate Amino Transferase 9 U/L (0-40); Blood Urea Nitrogen 12 mg/dL (8-23); Calcium 9.4 mg/dL (8.5-10.5); Carbon Dioxide 35 mmol/L (22-29); Chloride 96 mmol/L (98-107); Globulin 3.8 g/dL (1.3-4.6); Glucose 254 mg/dL (65-115); Osmolality Calculated 288 mOsm/kg (285-295); Potassium 4.5 mmol/L (3.5-5.1); Sodium 135 mmol/L (136-145); Total Bilirubin 0.3 mg/dL (0.15-1.2)
[2022-12-08 05:40] LABS: Add Urine Microscopic? NO; Charge for UA Resulting for Rev
[2022-12-08 05:57] LABS: Bilirubin Urine Neg (Negative); Blood Urine Neg (Negative); Glucose Urine UA 1+ (Normal); Ketones Urine Negative (Negative); Leukocyte Esterase Urine Negative (Negative); Nitrate Urine Negative (Negative); Protein Urine Neg (Negative); Sulfosalicylic Acid Urine Negative (Negative); Urine Appearance Clear (CLEAR); Urine Color Yellow (Yellow); Urobilinogen Urine 1 mg/dL (Negative); pH Urine 8 (5-7)
[2022-12-08 06:07] VITALS: BP 146/62; PULSE 67; RESP 20; O2SAT 93
--- NOTE | 2022-12-08 06:41 | ED_ITS ---
HPI - SOB/Dyspnea General: Chief Complaint: Nausea/Vomiting/Diarrhea Stated Complaint: COUGHING Time Seen by Provider: 12/08/22 05:10 History of Present Illness: HPI Narrative: 72-year-old male gentleman with a history of lung cancer. He had a biopsy last week. He states he has been coughing up bloody sputum since that time. Some worsening shortness of breath. No fever. Has had some chills. Oxygen saturations have remained normal on his normal dose of oxygen. He lives in a skilled nursing environment. 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 Hwang -[place] Hx of cholecystectomy Hx of eye surgery bilat-Dr. Navarrete did right and Dr. Perez in [place] Hx of kyphoplasty 07/05/[address] Powell Status post colonoscopy (05/11/20) normal Family History Brother Cancer Diabetes Heart disease Social History Smoking and tobacco status: former smoker (smoked x 40 years) Quit status (tobacco): has quit using tobacco Year quit tobacco: 2016 - PPD x 45 Years Former quit date comment: Started at age 17 Second hand smoke exposure: No Smoking risk assessment/counseling performed?: Yes Alcohol intake: former Year of sobriety/quit date alcohol: 2013 Former alcohol use details: beer Substance/Drug Use: never Lives independently: Yes Household members: none Marital status: service: No Current occupational status: disabled Do you think of yourself as: Straight/Heterosexual Current gender identity: Male Physical Exam Const: COMMON NORMALS: no acute distress GENERAL APPEARANCE: cooperative, ill appearing (mildly) and frail appearing HENMT: COMMON NORMALS: normocephalic, atraumatic and Normal external nose present HEAD & SCALP: normocephalic and atraumatic FACE & SINUS: normal facial exam and face symmetric NOSE: Normal external nose present Eye: COMMON NORMALS: Equal, round and reactive pupils present and EOMs intact bilaterally PUPIL: Yes Equal, round and reactive pupils present Neck/C-Spine: GENERAL: Yes trachea midline Chest: CHEST: Yes Symmetrical chest wall rise Resp: COMMON NORMALS: clear to auscultation bilaterally EFFORT & INSPECTION: Yes tachypneic (mild), No respiratory distress and No uses accessory muscles AUSCULTATION: clear to auscultation bilaterally and diminished lung sounds Cardio: COMMON NORMALS: regular rate and regular rhythm RATE: regular rate RHYTHM: regular rhythm GI: COMMON NORMALS: Normal to inspection, nondistended, normoactive bowel sounds present Extremity: COMMON NORMALS: no pedal edema Neuro: LETA COMA SCALE: document GCS findings [place] coma scale eye opening: Spontaneous Leta coma scale verbal response: Orientated [place] coma scale motor response: Obey commands Leta coma scale total score: 15 SENS ORY EXAM: Yes extremities (intact) Psych: COMMON NORMALS: speech normal SPEECH: Yes normal speech Skin: COMMON NORMALS: no rashes or lesions noted GENERAL SKIN EXAM: no rashes or lesions noted Course Vital Signs: Vital signs: Vital Signs Temperature 98 F 12/08/22 04:59 Pulse Rate 56 L 12/08/22 06:49 Respiratory Rate 20 H 12/08/22 06:49 Blood Pressure 126/53 12/08/22 06:49 Pulse Oximetry 96 12/08/22 06:49 Oxygen Delivery Me thod Nasal Cannula 12/08/22 06:49 Oxygen Flow Rate 5 12/08/22 06:49 MDM - SOB/Dyspnea Medical Decision Making 72-year-old male lung cancer patient with increased shortness of breath with bloody sputum postbiopsy. Chest x-ray shows pneumonia. No pneumothorax. White blood cell count is 9. Hemoglobin is 11 which is stable for the patient. Creatinine is 0.6. Blood sugar is high at 254. Urinalysis is negative. Lactic acid is only 0.8. With stable saturations, and vitals otherwise, he will be treated with IV antibiotics here, and discharged with oral antibiotics for the skilled nursing. To return for any worsening symptoms despite this treatment. Lab Data 12/08/22 05:00 12/08/22 05:00 Labs/Radiology: Radiology Impressions Chest X-Ray 12/08/22 05:08 IMPRESSION: Pneumonia. Laboratory Results WBC 9.34 10^3/uL (3.29-11.43) 12/08/22 05:00 RBC 3.96 10^6/uL (3.85-5.65) 12/08/22 05:00 Hgb 10.70 g/dL (11.27-16.99) L 12/08/22 05:00 Hct 33.7 % (37-53) L 12/08/22 05:00 MCV 85.1 fl (82-101) 12/08/22 05:00 MCH 27.0 pg (27-33) 12/08/22 05:00 MCHC 31.8 g/dL (30-55) 12/08/22 05:00 RDW 14.1 % (12.1-15.1) 12/08/22 05:00 Plt Count 174 10^3/cmm (157-399) 12/08/22 05:00 MPV 9.7 fL (7.4-10.4) 12/08/22 05:00 Neut % (Auto) 80.7 % 12/08/22 05:00 Lymph % (Auto) 10.6 % 12/08/22 05:00 Johnson % (Auto) 6.3 % 12/08/22 05:00 Eos % (Auto) 1.9 % 12/08/22 05:00 Baso % (Auto) 0.2 % 12/08/22 05:00 Neut # (Auto) 7.53 10^3/uL (1.8-7.7) 12/08/22 05:00 Lymph # (Auto) 1.0 10^3/uL (0.8-4.8) 12/08/22 05:00 Johnson # (Auto) 0.6 10^3/uL (0.2-0.9) 12/08/22 05:00 Eos # (Auto) 0.2 10^3/uL (0.0-0.8) 12/08/22 05:00 Baso # (Auto) 0.0 10^3/uL (0.0-0.1) 12/08/22 05:00 Nucleated RBC % (auto) 0 % 12/08/22 05:00 Nucleated RBCs # 0.0 /100WBC 12/08/22 05:00 PT 14.20 SECONDS (12.1-14.9) 12/08/22 05:00 INR 1.07 (0.8-1.2) 12/08/22 05:00 APTT 28.6 SECONDS (23.9-36.7) 12/08/22 05:00 Sodium 135 mmol/L (136-145) L 12/08/22 05:00 Potassium 4.5 mmol/L (3.5-5.1) 12/08/22 05:00 Chloride 96 mmol/L (98-107) L 12/08/22 05:00 Carbon Dioxide 35 mmol/L (22-29) H 12/08/22 05:00 Anion Gap 8.5 (5-19) 12/08/22 05:00 BUN 12 mg/dL (8-23) 12/08/22 05:00 Creatinine 0.6 mg/dL (0.7-1.2) L 12/08/22 05:00 GFR Calculation Not Reportable 12/08/22 05:00 Glucose 254 mg/dL (65-115) H 12/08/22 05:00 Calculated Osmolality 288 mOsm/kg (285-295) 12/08/22 05:00 Lactic Acid 0.8 mmol/L (0.5-2.2) 12/08/22 05:00 Calcium 9.4 mg/dL (8.5-10.5) 12/08/22 05:00 Total Bilirubin 0.3 mg/dL (0.15-1.2) 12/08/22 05:00 AST 9 U/L (0-40) 12/08/22 05:00 ALT 8 U/L (0-41) 12/08/22 05:00 Alkaline Phosphatase 77 U/L (40-130) 12/08/22 05:00 Total Protein 7.0 g/dL (6.6-8.7) 12/08/22 05:00 Albumin 3.2 g/dL (3.5-5.2) L 12/08/22 05:00 Globulin 3.8 g/dL (1.3-4.6) 12/08/22 05:00 Urine Color Yellow (Yellow) 12/08/22 05:30 Urine Appearance Clear (CLEAR) 12/08/22 05:30 Urine pH 8 (5-7) H 12/08/22 05:30 Ur Specific [place] 1.010 (1.005-1.030) 12/08/22 05:30 Urine Protein Neg (Negative) 12/08/22 05:30 Urine Glucose (UA) 1+ (Normal) H 12/08/22 05:30 Urine Ketones Negative (Negative) 12/08/22 05:30 Urine Blood Neg (Negative) 12/08/22 05:30 Urine Nitrate Negative (Negative) 12/08/22 05:30 Urine Bilirubin Neg (Negative) 12/08/22 05:30 Prot Sulfosalicylic Acd Negative (Negative) 12/08/22 05:30 Urine Urobilinogen 1 mg/dL (Negative) H 12/08/22 05:30 Ur Leukocyte Esterase Negative (Negative) 12/08/22 05:30 SARS-CoV-2 Ag (Rapid) negative (Negative) 12/08/22 06:44 Discharge Plan Discharge Patient Disposition: Home Clinical Impression: Lung cancer, Pneumonia Condition: Stable Prescriptions: New Zithromax 250 mg tablet See Rx Instructions .ROUTE .COMPLEX Qty: 6 0RF Rx Instructions: For 250 mg dose pack: take 500 mg today (day 1), then 250 mg for 4 days (days 2-5) cefdinir 300 mg capsule 300 mg PO BID 10 Days Qty: 20 0RF No Action Calamine Medicated 1-8 % lotion 1 applic topical TID PRN (Reason: itching) Qty: 177 6RF polyethylene glycol 3350 17 gram powder in packet 17 g PO EVERY OTHER DAY ferrous sulfate 325 mg (65 mg iron) tablet 325 mg PO EVERY OTHER DAY finasteride 5 mg tablet 5 mg PO BEDTIME buspirone 5 mg tablet 5 mg PO BID alendronate 70 mg Tablet 70 mg PO Q7D Rx Instructions: ON SATURDAY cholecalciferol (vitamin D3) [Vitamin D3] 25 mcg (1,000 unit) Tablet 25 mcg PO DAILY@06 ipratropium-albuterol 0.5 mg-3 mg(2.5 mg base)/3 mL Solution For Nebulization 3 ml INHALATION TID albuterol sulfate 2.5 mg /3 mL (0.083 %) solution for nebulization 2.5 mg inhalation Q4H PRN (Reason: Shortness Of Breath) morphine 30 mg tablet extended release 30 mg PO TID@07,15,23 guaifenesin 100 mg/5 mL Liquid 100 mg PO Q4H PRN (Reason: Cough) budesonide 0.5 mg/2 mL Suspension For Nebulization 0.5 mg inhalation BID clopidogrel 75 mg Tablet 75 mg PO DAILY Qty: 90 2RF aspirin 81 mg Tablet,Delayed Release (Dr/Ec) 81 mg PO DAILY Qty: 90 3RF nitroglycerin 0.4 mg tablet, sublingual 0.4 mg sublingual Q5M PRN (Reason: chest pain) Qty: 30 6RF Rx Instructions: do not exceed 3 doses per episode losartan 25 mg tablet 25 mg PO DAILY@07 escitalopram oxalate 20 mg Tablet 20 mg PO DAILY@07 magnesium hydroxide [Milk of Magnesia] 400 mg/5 mL Suspension 30 ml PO Q72H PRN (Reason: if no bm in 3 days) Rx Instructions: do not give to renal patients-go to dulcolax orders bisacodyl [Dulcolax (bisacodyl)] 5 mg tablet,delayed release (DR/EC) 5 mg PO DAILY PRN (Reason: Constipation) Rx Instructions: if no results from mom potassium chloride 10 mEq tablet extended release 10 meq PO DAILY@07 tamsulosin 0.4 mg capsule 0.4 mg PO BEDTIME bisacodyl [Dulcolax (bisacodyl)] 10 mg Suppository 10 mg [place] DAILY PRN (Reason: Constipation) Rx Instructions: if no results from mom omeprazole 20 mg Capsule,Delayed Release(Dr/Ec) 20 mg PO DAILY@07 furosemide [Lasix] 20 mg Tablet 20 mg PO DAILY insulin aspart U-100 [Novolog FlexPen U-100 Insulin] 100 unit/mL (3 mL) i nsulin pen See Rx Instructions .ROUTE .COMPLEX Rx Instructions: sliding scale before meals and at bedtime if blood sugar is less than 60 call md 150-200=0 units 201-250=2 units 251-300=4 units 301-350=6 units 351-400=8 units if blood sugar is greater than 400 give 8 units call pcp is bs is <60 and >400 if symptomatic rosuvastatin 20 mg tablet 20 mg PO BEDTIME Hephzibah Cough Drops 5.8 mg Lozenge 5.8 mg MUCOUS MEMBRANE Q2H PRN (Reason: Cough) Artificial Tears (PF) 0.1-0.3 % Dropperette 1 drp ophthalmic (eye) QID metoprolol succinate 50 mg tablet extended release 24 hr 50 mg PO DAILY@07 Trelegy Ellipta 100-62.5-25 mcg blister with device 1 inh inhalation DAILY@07 ondansetron 4 mg film 4 mg PO DAILY PRN (Reason: nausea and vomiting) Qty: 10 0RF Tresiba FlexTouch U-100 100 unit/mL (3 mL) Insulin Pen 28 unit SUBCUT BEDTIME Discharge Orders: Discharge ED (Routine); Ordered 12/08/22 Ordered By: Ferny De La Torre Referrals: Daniel Leyva DO [Primary Care Provider] - 4-7 days Patient Instructions: Pneumonia (ED) Activity Restrictions/Additional Instructions: Use the DuoNeb nebulized medication every 4 hours while awake for the next 48 hours scheduled, then as needed. Antibiotics as directed. Return for worsening trouble breathing despite treatment, worsening shortness of breath, fever despite 2-3 doses of antibiotics, other concerning symptoms, . Repeat x-ray must be done in a timely manner to ensure resolution of the pneumonia. Coding Level of Care Code ED Cutting Inspector for Camila Ko
[2022-12-08] MEDS: cefTRIAXone 1,000 MG in sodium chloride 0.9% (plus) 50 ML 100 MG IV (06:45)
[2022-12-08] MEDS: azithromycin 250 mg Tablet 500 MG PO (06:45)
[2022-12-08 06:49] VITALS: BP 126/53; PULSE 56; RESP 20; O2SAT 96
[2022-12-08 07:11] LABS: SARS Covid-2 Antigen negative (Negative)
--- NOTE | 2022-12-08 08:08 | PC.NURSE ---
report called to [facility].
== END 2022-12-08 11:26 | disposition home or self-care (01) ==
PROVIDERS: Emergency Provider Emergency Medicine; PCP Internal Medicine
DX: C34.90 Malignant neoplasm of unspecified part of unspecified bronchus or lung (principal); J18.9 Pneumonia, unspecified organism
CPT/HCPCS: 71045; 80053; 81003; 83605; 85025; 85610; 85730; 87426; 96374; 99284; J0696; Q0144

== ENCOUNTER 2023-01-04 07:43 | Outpatient (CLI) | payer MEDICARE, MEDICAID, SELFPAY ==
--- NOTE | 2023-01-04 08:27 | MR_ITS ---
WS: [id number] MRI BRAIN WITH AND WITHOUT CONTRAST HISTORY: History of lung cancer, COMPARISON: None available. TECHNIQUE: Multiplanar imaging performed through the brain with MultiHance 17 ml's IV. No acute infarcts are seen. Campbell-white matter differentiation is well preserved. Moderate atrophy. Th is examination is compromised by moderate motion artifact on majority of the sequences. There is exte nsive white matter disease surrounding the ventricles and extending towards the vertex. Bilateral dif fuse increased signal within the lilian. Moderate volume loss and atrophy Ventricles and extra-axial spaces are normal. Clivus and pituitary gland are normal. Visualized posterior fossa and brainstem are also normal. Postcontrast images are compromised by motion. No areas of abnormal enhancement or metastatic foci ar e identified. Dural venous sinuses are normal. Paranasal sinuses: Well aerated with no significant disease. Mastoid air cells: Normal. Calvarium and scalp: Normal. IMPRESSION: 1. Quality of this examination is compromised by motion. 2. No metastatic disease to the brain identified. No enhancing masses. 3. Moderate volume loss and atrophy. 4. Advanced small vessel ischemic disease throughout the supratentorial white matter and in the lilian bilaterally.
[2023-01-04] MEDS: gadobenate dimeglumine 20 mL vial IV (08:34)
== END 2023-01-04 07:44 | disposition home or self-care (01) ==
PROVIDERS: PCP Internal Medicine; Visit Provider Nurse Practitioner Family
DX: C34.90 Malignant neoplasm of unspecified part of unspecified bronchus or lung (principal); I67.89 Other cerebrovascular disease
CPT/HCPCS: 70553; A9577

== ENCOUNTER 2023-01-08 10:19 | Oncology outpatient (recurring) (ONCR) | payer MEDICARE, MEDICAID, SELFPAY ==
--- NOTE | 2022-12-19 12:23 | N.ONRAD NP_ITS ---
Radiation Oncology New Patient Visit Patient: Moses Cardoza MR#: [id number] : 1950> Age: 72> Sex: Male> Dictated by: Kwabena Alfonso Date of Service: 12/19/2022 Referring Physician(s) : Rossana Ruggiero Diagnosis: D50.9 - iron deficiency anemia, unspecified, Diagnosed 04/19/2020 (active) and Z85.118 - personal history of other malignant neoplasm of bronchus and lung, Diagnosed 05/28/2017 (active). Lung, left, squamous cell carcinoma, stage T2b N2 MX (MR brain pending) Radiotherapy to date: Summary > No prior radiation therapy. Chief Complaint / History of Present Illness: Mr. Cardoza is a 72-year-old man who underwent a right lower lobectomy in September 2014 for a squamous cell carcinoma of the lung. He did not have any adverse pathologic features and did not receive any adjuvant therapy. He required a decortication for a persistent pleural effusion following surgery. Otherwise he has done well. He has developed progressively worse pulmonary function over the past few years. He was living independently in an apartment until about a year ago. At that time he decided to move into a mcc because he was having difficulty walking to his vehicle because of severe dyspnea. He is now in a mcc and uses a wheelchair to navigate within the home because of severe dyspnea with any exertion. He keeps his O2 at 4 to 5 L even at rest. He is basically a pulmonary invalid. He has been followed with imaging and no evidence of recurrent cancer until recently. In October he had a CT of the chest which showed mass/atelectasis in the left lower lobe. He had a PET scan performed after that which showed uptake consistent with malignancy in the left lower lobe with a mass measuring 5 cm, as well as left hilar and mediastinal lymphadenopathy. He underwent bronchoscopy. He had biopsy of lymph node stations 7, 11 L, and 4L with all showing metastatic squamous cell carcinoma. There has been no recent change in the patient's pulmonary status. He has dyspnea at rest unless he is on 4 to 5 L O2 per nasal cannula. He continues to use a wheelchair to navigate in the mcc or outside the mcc. He has had mild hemoptysis since the biopsy. He has a chronic cough but denies purulent sputum production. He has no discomfort in the chest. The current situation is complicated by his PET scan revealing intense uptake in the cecum consistent with malignancy, though no associated mass was seen on CT. The patient had a negative colonoscopy in 2020 and currently is refusing to have a repeat colonoscopy. Mr. Cardoza is referred for evaluation with regard to the use of radiation. He has an MRI of the brain scheduled for 01/04/2023 to complete staging. Current Medications: Albuterol Sulfate, aleve, amoxicillin, aspirin, azithromycin, calcium, cetirizine HCl, crestor, dULoxetine HCl, hydrocodone-Acetaminophen, lexapro, metFORMIN HCl ER, methIMAzole, morphine Sulfate, mucinex DM, multivitamin Adult, pepcid, senna, stiolto Respimat. Allergies: No Known Allergies Medical History: Chronic obstructive pulmonary disease, depression, enlarged prostate, hepatitis C, history of lung cancer, hyperlipidemia, hyperthyroidism, osteoporosis, type II diabetes. No history of collagen vascular disease. No previous radiation therapy. He states he has had a myocardial infarction while hospitalized. He states he did not have any acute symptoms. He had 1 stent placed. Surgical History: Cataract excision, cholecystectomy, colonoscopy in 2020, covid vaccine #1 in 05/2020, covid vaccine #2 in 06/2020 and right lobectomy. Pleural decortication after lobectomy. Kyphoplasty of L2 with no benefit perceived by the patient. Family History: Father's alive status is unknown. Mother is at age 69. Brother is alive. Patient states his mother, her brother, and a sister all of cancer. He does not know what type of cancer any of them had. Social History: Last screened on 05/29/2021 - Yes - but has quit for 7 years. Smoked 1.0 pack/day for 40 years (40 pack years). Last screened on 05/29/2021 - Past drinker who quit for 7 years. Lives in a mcc locally because of chronic pulmonary failure. Current Complaints / Review of Systems: . No troublesome upper GI symptoms. Denies any hematochezia or melena. He does have chronic constipation. As previously noted he is refusing a colonoscopy for an abnormality noted on PET scan in the cecum. He has nocturia less than hourly at night. He does not go to the restroom because of his pulmonary failure. He uses a small container. He has hesitancy and decreased urinary stream with incomplete emptying. No chest pain or unusual breathing symptoms. He has chronic pain in his back where he had the vertebroplasty. No new bone pain. Pulmonary symptoms noted in history. Vital Signs: Performed on 12/19/2022 10:45 AM BMI - 25.105 kg/m2 (high), Height - 71 in, Weight - 180 lbs, Temperature - 97.5 f, Pulse - 58 /min (low), Respiration - 18 /min, O2 Sat - 87 % (low), Pain - 0, Fatigue - 0 and BP - 117/ 51 mm(hg)(/low). Physical Exam: Alert, oriented, and in no acute distress on O2 per nasal cannula. He appears chronically ill and is sitting in his wheelchair. No cervical or supraclavicular lymphadenopathy. Lungs clear to percussion. On auscultation, breath sounds were audible bilaterally. He had mild rhonchi in the left upper lobe but no abnormal breath sounds elsewhere. Heart rhythm regular. No murmur or gallop. Abdomen without distention. Bowel sounds normal. No organomegaly or mass or tenderness. His musculoskeletal exam reveals mild tenderness in the upper lumbar spine. No acute bone tenderness at any site. No lower extremity edema or vascular changes. Performance Status: ECOG 4 Pathology: Primary, d50.9 - iron deficiency anemia, unspecified, Diagnosed 04/19/2020 (active) and Primary, z85.118 - personal history of other malignant neoplasm of bronchus and lung, Diagnosed 05/28/2017 (active). Mediastinal and left hilar nodes, squamous cell carcinoma Lab: Imaging: See HPI Impression: Mr. Cardoza is a pulmonary cripple who has a new squamous cell carcinoma of the lower lobe of the left lung with associated hilar and mediastinal lymphadenopathy. He has a very poor performance status and I do not feel that he is a candidate for aggressive treatment. I explained that a course of radiation given with or without chemotherapy with curative intent would lead to scarring of remaining functional lung tissue and would even worsen his pulmonary status. I told him that developing pneumonia or bronchitis during treatment could be life-threatening. I told him that I recommend that he undergo palliative radiation if and when he develops any troublesome symptoms related to the disease in the chest. He was very receptive to my comments and said that he did not want to do anything to make his pulmonary situation worse. I told him we could offer palliative radiation to other sites if he develops metastatic disease. I told him that there are new systemic options becoming available for lung cancer and that he might be a candidate for some type of systemic therapy that would offer some benefit without excessive risk. He will remain open to that possibility. We discussed the abnormality in the cecum. He did not realize that it had been 2020 when he had a colonoscopy. He thought it had been more recent. He still is resistant at this point to undergoing a colonoscopy. I did discuss with him that there may be a malignancy in that area. Radiation could be given to that area for palliation if he develops a significant level of lower GI bleeding. Plan: Radiation to be reserved for palliation. He will go ahead with his MRI of the brain that is planned 01/04/[address] Nava for discussion of any systemic treatment options. Signed by: 12/19/2022 12:21:57 PM <<Signature on File>> Time spent with patient: CPT Code: CPT Code:
== END 2023-01-12 23:59 | disposition home or self-care (01) ==
PROVIDERS: PCP Internal Medicine; Visit Provider Internal Medicine Medical Oncology
DX: C34.31 Malignant neoplasm of lower lobe, right bronchus or lung; J96.11 Chronic respiratory failure with hypoxia; Z87.891 Personal history of nicotine dependence; Z99.81 Dependence on supplemental oxygen
CPT/HCPCS: 99205; 99215

== ENCOUNTER 2023-01-22 08:37 | Oncology outpatient (recurring) (ONCR) | payer MEDICARE, MEDICAID, SELFPAY ==
[2023-01-22 08:50] VITALS: BP 129/55; PULSE 54; RESP 16; TEMP 36.4; O2SAT 95
[2023-01-22 09:09] LABS: Basophils % 0.3 %; Eosinophils # 0.3 10^3/uL (0.0-0.8); Hematocrit 34.3 % (37-53); Lymphocytes # 0.7 10^3/uL (0.8-4.8); Lymphocytes % 11.5 %; Mean Corpuscular HGB Conc 32.4 g/dL (30-55); Mean Corpuscular Volume 86.6 fl (82-101); Mean Platelet Volume 10.4 fL (7.4-10.4); Monocytes # 0.6 10^3/uL (0.2-0.9); Monocytes % 9.5 %; Neutrophils # 4.78 10^3/uL (1.8-7.7); Neutrophils % 74.5 %; Nucleated Red Blood Cells % 0 %; Platelet Count 175 10^3/cmm (157-399); Red Blood Count 3.96 10^6/uL (3.85-5.65); Red Cell Distribution Width 13.4 % (12.1-15.1); White Blood Count 6.42 10^3/uL (3.29-11.43)
[2023-01-22 09:55] LABS: Alanine Aminotransferase 10 U/L (0-41); Albumin Level 3.7 g/dL (3.5-5.2); Alkaline Phosphatase 123 U/L (40-130); Aspartate Amino Transferase 14 U/L (0-40); Blood Urea Nitrogen 16 mg/dL (8-23); Calcium 11.2 mg/dL (8.5-10.5); Carbon Dioxide 30 mmol/L (22-29); Chloride 101 mmol/L (98-107); Globulin 3.3 g/dL (1.3-4.6); Glucose 161 mg/dL (65-115); Osmolality Calculated 293 mOsm/kg (285-295); Sodium 139 mmol/L (136-145); Thyroid Stimulating Hormone 0.71 uIU/mL (0.27-4.20); Total Bilirubin 0.3 mg/dL (0.15-1.2)
[2023-01-22 09:56] LABS: Anion Gap 12.3 (5-19); Potassium 4.3 mmol/L (3.5-5.1)
[2023-01-22] MEDS: pembrolizumab 200 MG in sodium chloride 0.9% 250 ML 516 MG IV (11:35)
[2023-01-22] MEDS: sodium chloride 0.9% 250 ML 75 ML IV (11:35)
[2023-01-22 12:25] VITALS: BP 151/62; PULSE 53; RESP 18; O2SAT 97
[2023-01-22 13:04] LABS: Ferritin 691 ng/mL (30-400); Iron 48 ug/dL (59-158); Percent Saturation 19.5 % (20-50); Total Iron Binding Capacity 246 mcg/dl; Unsaturated Iron Binding 198 ug/dL (112-347)
== END 2023-01-22 23:59 | disposition home or self-care (01) ==
PROVIDERS: Nurse Practitioner Family; PCP Internal Medicine; Visit Provider Internal Medicine Medical Oncology
DX: D50.9 Iron deficiency anemia, unspecified (principal); C34.32 Malignant neoplasm of lower lobe, left bronchus or lung; Z99.81 Dependence on supplemental oxygen; Z87.891 Personal history of nicotine dependence; C34.90 Malignant neoplasm of unspecified part of unspecified bronchus or lung; Z51.11 Encounter for antineoplastic chemotherapy
CPT/HCPCS: 80053; 82728; 83540; 83550; 84443; 85025; 96413; 99215; J7050; J9271

== ENCOUNTER 2023-02-05 18:33 | Observation (INO) | payer MEDICARE, MEDICAID, SELFPAY ==
[2023-02-05] VITALS (8 sets, daily range): BP systolic 108–161; BP diastolic 51–110; PULSE 69–87; RESP 17–21; TEMP 36.6–37.2; O2SAT 90–95; BMI 25.1
--- NOTE | 2023-02-05 18:41 | XRR_ITS ---
PROCEDURE INFORMATION: Exam: XR Chest Exam date and time: 02/05/2023 6:44 PM Age: 72 years old Clinical indication: Pain; Chest pressure; Additional info: Cp TECHNIQUE: Imaging protocol: Radiologic exam of the chest. Views: 1 view. COMPARISON: CR (CHEST, ) 12/08/2022 5:21 AM FINDINGS: Lungs: Emphysema with interstitial scarring. Patchy airspace opacities in the upper left lung, central right lung, and medial left lung base. Pleural spaces: Unremarkable. No pleural effusion. No pneumothorax. Heart/Mediastinum: Unremarkable. No cardiomegaly. Bones/joints: Metal posts in the mandible. XR/XR chest 1V portable [id number] IMPRESSION: Patchy multilobar pneumonia.
--- NOTE | 2023-02-05 18:41 | ECG_ITS ---
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 Measurements Intervals [place] Rate: 74 P: 57 DE: 126 QRS: 57 QRSD: 93 T: 75 QT: 362 QTc: 402 Interpretive Statements SINUS RHYTHM NONSPECIFIC T-WAVE ABNORMALITY Compared to ECG 09/23/2022 08:18:37 No significant changes Electronically Signed On 02-06-2023 8:02:19 CDT by Jaden Quiroz M.D. [id number]
--- NOTE | 2023-02-05 18:43 | ED_ITS ---
HPI - Chest Pain General: Chief Complaint: Shortness of Breath/Dyspnea Stated Complaint: SOB, Chest pain Time Seen by Provider: 02/05/23 18:34 Source: patient and EMS Limitations: no limitations History of Present Illness: 72-year-old male has a history of lung cancer he is here from the retirement he said that roughly an hour ago he started to feel like he had had some palpitations some mild chest pain the since completely resolved lasted minutes he states he has had some slight increased shortness of breath as well he is on his baseline oxygen here he had a slight cough no known fevers.. Associated symptoms: Reports dyspnea; Deny abdominal pain, fever(s), nausea or vomiting Review of Systems Const: Denies: fever(s), chills, body aches or change in appetite Eyes: Denies: blurry vision or eye discomfort ENMT: Denies: throat pain or dental pain Card: Reports: chest pain Resp: Reports: dyspnea and non-productive cough GI: Denies: abdominal pain, nausea, vomiting or diarrhea Musc: Denies: neck pain or back pain Skin/Breast: Denies: rash Neuro: Denies: headache(s) PFSH ED PFSH: Medical History Acute and chronic respiratory failure with hypercapnia Acute exacerbation of chronic obstructive airways disease Atherosclerosis of coronary artery 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 Hwang -[place] Hx of cholecystectomy Hx of eye surgery bilat-Dr. Navarrete did right and Dr. Perez in [place] Hx of kyphoplasty 07/05/[address] Powell Status post colonoscopy (05/11/20) normal Family History Brother Cancer Diabetes Heart disease Social History Smoking and tobacco/nicotine status: former use of tobacco/nicotine (smoked x 40 years) Quit status (tobacco/nicotine): has quit using Year quit tobacco: 2016 - 1 PPD x 45 Years Former quit date comment: Started at age 17 Second hand smoke exposure: No Alcohol intake: former Year of sobriety/quit date alcohol: 2014 Former alcohol use details: beer Substance/Drug Use: never Lives independently: Yes Household members: none Marital status: service: No Current occupational status: disabled Do you think of yourself as: Straight/Heterosexual Current gender identity: Male Physical Exam Const: COMMON NORMALS: patient oriented x3 GENERAL APPEARANCE: frail appearing HENMT: COMMON NORMALS: normocephalic and atraumatic HEAD & SCALP: normocephalic and atraumatic Eye: COMMON NORMALS: Equal, round and reactive pupils present and EOMs intact bilaterally PUPIL: Yes Equal, round and reactive pupils present Neck/C-Spine: COMMON NORMALS: full ROM and supple Chest: COMMONS NORMALS: normal inspection of the chest and normal palpation of entire chest wall Resp: COMMON NORMALS: No retractions and No use of accessory muscles EFFORT & INSPECTION: Yes respiratory distress AUSCULTATION: crackles Cardio: COMMON NORMALS: regular rate, regular rhythm and No murmurs present (Cardio) RATE: regular rate RHYTHM: regular rhythm GI: COMMON NORMALS: Normal to inspection, nondistended, normoactive bowel sounds present, Soft to palpation, non-tender and no masses PALPATION: Yes Soft to palpation Extremity: COMMON NORMALS: normal to inspection and full ROM Neuro: COMMON NORMALS: patient oriented x3, moves all extremities and no focal motor deficits Psych: COMMON NORMALS: mental status grossly normal, Normal thought process pr esent and cooperative THOUGHT PROCESS: Normal thought process present Skin: COMMON NORMALS: no rashes or lesions noted and no wounds GENERAL SKIN EXAM: no rashes or lesions noted Course Vital Signs: Vital signs: Vital Signs Temperature 98.9 F 02/05/23 18:34 Pulse Rate 78 02/05/23 19:13 Respiratory Rate 17 02/05/23 19:13 Blood Pressure 161/110 02/05/23 19:13 Pulse Oximetry 92 02/05/23 19:13 Oxygen Delivery Me thod Nasal Cannula 10/24/23 19:13 Oxygen Flow Rate 3 02/05/23 19:13 MDM - Chest Pain Medical Decision Making Patient presents with multilobar pneumonia he does have an elevated white count blood pressure here has been normal no signs of sepsis spoke to the hospitalist will admit for IV antibiotics at this time. Medical Records I reviewed the patient's medical records. Lab Data I reviewed the patient's lab results. 02/05/23 18:47 02/05/23 18:47 Radiology Impressions Chest X-Ray 02/05/23 18:41 IMPRESSION: Patchy multilobar pneumonia. Laboratory Results WBC 15.02 10^3/uL (3.29-11.43) H 02/05/23 18:47 RBC 3.93 10^6/uL (3.85-5.65) 02/05/23 18:47 Hgb 10.90 g/dL (11.27-16.99) L 02/05/23 18:47 Hct 34.1 % (37-53) L 02/05/23 18:47 MCV 86.8 fl (82-101) 02/05/23 18:47 MCH 27.7 pg (27-33) 02/05/23 18:47 MCHC 32.0 g/dL (30-55) 02/05/23 18:47 RDW 13.1 % (12.1-15.1) 02/05/23 18:47 Plt Count 124 10^3/cmm (157-399) L 02/05/23 18:47 MPV 11.3 fL (7.4-10.4) H 02/05/23 18:47 Neut % (Auto) 87.1 % 02/05/23 18:47 Lymph % (Auto) 6.4 % 02/05/23 18:47 [place] % (Auto) 4.9 % 02/05/23 18:47 Eos % (Auto) 0.9 % 02/05/23 18:47 Baso % (Auto) 0.2 % 02/05/23 18:47 Neut # (Auto) 13.09 10^3/uL (1.8-7.7) H 02/05/23 18:47 Lymph # (Auto) 1.0 10^3/uL (0.8-4.8) 02/05/23 18:47 [place] # (Auto) 0.7 10^3/uL (0.2-0.9) 02/05/23 18:47 Eos # (Auto) 0.1 10^3/uL (0.0-0.8) 02/05/23 18:47 Baso # (Auto) 0.0 10^3/uL (0.0-0.1) 02/05/23 18:47 Nucleated RBC % (auto) 0 % 02/05/23 18:47 Nucleated RBCs # 0.0 /100WBC 02/05/23 18:47 Sodium 135 mmol/L (136-145) L 02/05/23 18:47 Potassium 5.0 mmol/L (3.5-5.1) 02/05/23 18:47 Chloride 95 mmol/L (98-107) L 02/05/23 18:47 Carbon Dioxide 31 mmol/L (22-29) H 02/05/23 18:47 Anion Gap 14.0 (5-19) 02/05/23 18:47 BUN 23 mg/dL (8-23) 02/05/23 18:47 Creatinine 0.9 mg/dL (0.7-1.2) 02/05/23 18:47 GFR Calculation Not Reportable 02/05/23 18:47 Glucose 121 mg/dL (65-115) H 02/05/23 18:47 Calculated Osmolality 285 mOsm/kg (285-295) 02/05/23 18:47 Calcium 11.6 mg/dL (8.5-10.5) H 02/05/23 18:47 Total Bilirubin 0.5 mg/dL (0.15-1.2) 02/05/23 18:47 AST 15 U/L (0-40) 02/05/23 18:47 ALT 12 U/L (0-41) 02/05/23 18:47 Alkaline Phosphatase 89 U/L (40-130) 02/05/23 18:47 Troponin T Baseline 17 ng/L (0-15) H 02/05/23 18:47 Total Protein 7.4 g/dL (6.6-8.7) 02/05/23 18:47 Albumin 3.4 g/dL (3.5-5.2) L 02/05/23 18:47 Globulin 4.0 g/dL (1.3-4.6) 02/05/23 18:47 Lipase 11 U/L (13-60) L 02/05/23 18:47 All radiology interpretation(s) finalized by discharge EKG Data EKG 1: I personally reviewed and interpreted this EKG as follows: EKG interpretation date: 02/05/23 EKG interpretation time: 18:55 Interpretation: nsr hr [address] or t wave abnormalities qrs 93 qtc 389 Discharge Plan Discharge Patient Disposition: Admitted As Inpatient Clinical Impression: Community acquired pneumonia Condition: Stable Prescriptions: No Action Calamine Medicated 1-8 % lotion 1 applic topical TID PRN (Reason: itching) Qty: 177 6RF polyethylene glycol 3350 17 gram powder in packet 17 g PO EVERY OTHER DAY ferrous sulfate 325 mg (65 mg iron) tablet 325 mg PO EVERY OTHER DAY finasteride 5 mg tablet 5 mg PO BEDTIME buspirone 5 mg tablet 5 mg PO BID prochlorperazine maleate [Compazine] 10 mg tablet 10 mg PO Q4H PRN (Reason: Mild Nausea) Qty: 30 3RF loperamide 2 mg capsule 2 mg PO .COMPLEX Qty: 30 1RF Rx Instructions: administer 2 capsules after first loose stool, then 1 capsule after each loose stool, max dose 8mg lorazepam 1 mg tablet 0.5 - 1 mg PO Q6H PRN (Reason: Severe Nausea) Qty: 30 1RF alendronate 70 mg Tablet 70 mg PO Q7D Rx Instructions: ON SATURDAY cholecalciferol (vitamin D3) [Vitamin D3] 25 mcg (1,000 unit) Tablet 25 mcg PO DAILY@06 ipratropium-albuterol 0.5 mg-3 mg(2.5 mg base)/3 mL Solution For Nebulization 3 ml INHALATION TID albuterol sulfate 2.5 mg /3 mL (0.083 %) solution for nebulization 2.5 mg inhalation Q4H PRN (Reason: Shortness Of Breath) morphine 30 mg tablet extended release 30 mg PO TID@07,, guaifenesin 100 mg/5 mL Liquid 100 mg PO Q4H PRN (Reason: Cough) budesonide 0.5 mg/2 mL Suspension For Nebulization 0.5 mg inhalation BID clopidogrel 75 mg Tablet 75 mg PO DAILY Qty: 90 2RF aspirin 81 mg Tablet,Delayed Release (Dr/Ec) 81 mg PO DAILY Qty: 90 3RF nitroglycerin 0.4 mg tablet, sublingual 0.4 mg sublingual Q5M PRN (Reason: chest pain) Qty: 30 6RF Rx Instructions: do not exceed 3 doses per episode losartan 25 mg tablet 25 mg PO DAILY@07 escitalopram oxalate 20 mg Tablet 20 mg PO DAILY@07 magnesium hydroxide [Milk of Magnesia] 400 mg/5 mL Suspension 30 ml PO Q72H PRN (Reason: if no bm in 3 days) Rx Instructions: do not give to renal patients-go to dulcolax orders bisacodyl [Dulcolax (bisacodyl)] 5 mg tablet,delayed release (DR/EC) 5 mg PO DAILY PRN (Reason: Constipation) Rx Instructions: if no results from mom potassium chloride 10 mEq tablet extended release 10 meq PO DAILY@07 tamsulosin 0.4 mg capsule 0.4 mg PO BEDTIME bisacodyl [Dulcolax (bisacodyl)] 10 mg Suppository 10 mg SD DAILY PRN (Reason: Constipation) Rx Instructions: if no results from mom omeprazole 20 mg Capsule,Delayed Release(Dr/Ec) 20 mg PO DAILY@07 furosemide [Lasix] 20 mg Tablet 20 mg PO DAILY insulin aspart U-100 [Novolog FlexPen U-100 Insulin] 100 unit/mL (3 mL) insulin pen See Rx Instructions .ROUTE .COMPLEX Rx Instructions: sliding scale before meals and at bedtime if blood sugar is less than 60 call 150-200=0 units 201-250=2 units 251-300=4 units 301-350=6 units 351-400=8 units if blood sugar is greater than 400 give 8 units call pcp is bs is <60 and >400 if symptomatic rosuvastatin 20 mg tablet 20 mg PO BEDTIME [place] Cough Drops 5.8 mg Lozenge 5.8 mg MUCOUS MEMBRANE Q2H PRN (Reason: Cough) Artificial Tears (PF) 0.1-0.3 % Dropperette 1 drp ophthalmic (eye) QID metoprolol succinate 50 mg tablet extended release 24 hr 50 mg PO DAILY@07 Trelegy Ellipta 100-62.5-25 mcg blister with device 1 inh inhalation DAILY@07 ondansetron 4 mg film 4 mg PO DAILY PRN (Reason: nausea and vomiting) Qty: 10 0RF Tresiba FlexTouch U-100 100 unit/mL (3 mL) Insulin Pen 28 unit SUBCUT BEDTIME Zithromax 250 mg tablet See Rx Instructions .ROUTE .COMPLEX Qty: 6 0RF Rx Instructions: For 250 mg dose pack: take 500 mg today (day 1), then 250 mg for 4 days (days 2-5) Referrals: Daniel Leyva DO [Primary Care Provider] - Coding Level of Care Code ED Custom Framing Specialist for g Stefani
[2023-02-05 18:54] LABS: Basophils % 0.2 %; Eosinophils # 0.1 10^3/uL (0.0-0.8); Eosinophils % 0.9 %; Hematocrit 34.1 % (37-53); Lymphocytes % 6.4 %; Mean Corpuscular Hemoglobin 27.7 pg (27-33); Mean Corpuscular Volume 86.8 fl (82-101); Mean Platelet Volume 11.3 fL (7.4-10.4); Monocytes # 0.7 10^3/uL (0.2-0.9); Monocytes % 4.9 %; Neutrophils # 13.09 10^3/uL (1.8-7.7); Neutrophils % 87.1 %; Nucleated Red Blood Cells % 0 %; Platelet Count 124 10^3/cmm (157-399); Red Blood Count 3.93 10^6/uL (3.85-5.65); Red Cell Distribution Width 13.1 % (12.1-15.1); White Blood Count 15.02 10^3/uL (3.29-11.43)
[2023-02-05 19:18] LABS: Troponin(5th) Baseline 17 ng/L (0-15)
[2023-02-05 19:21] LABS: Alanine Aminotransferase 12 U/L (0-41); Albumin Level 3.4 g/dL (3.5-5.2); Alkaline Phosphatase 89 U/L (40-130); Blood Urea Nitrogen 23 mg/dL (8-23); Calcium 11.6 mg/dL (8.5-10.5); Carbon Dioxide 31 mmol/L (22-29); Chloride 95 mmol/L (98-107); Glucose 121 mg/dL (65-115); Lipase 11 U/L (13-60); Osmolality Calculated 285 mOsm/kg (285-295); Sodium 135 mmol/L (136-145); Total Bilirubin 0.5 mg/dL (0.15-1.2); Total Protein 7.4 g/dL (6.6-8.7)
[2023-02-05 19:25] LABS: Aspartate Amino Transferase 15 U/L (0-40)
[2023-02-05 19:43] LABS: Slide Review Slide Review Perform
--- NOTE | 2023-02-05 20:10 | P.HP_ITS ---
Providers/Chief Complaint Primary Care Provider: Daniel Leyva DO Chief Complaint: SOB, Chest pain History of Present Illness Pleasant 72-year-old gentleman with history of lung cancer, recently started on Keytruda, last dose 01/22, COPD, history of PE, CAD, CHF, DM 2, JOSE MANUEL, chronic back pain, other medical problems, [facility] resident, normally on 3 L nasal cannula oxygen, was brought in for evaluation after complaints of pleuritic chest pain, palpitations which have resolved, but has also been having increased shortness of breath. He is coughing. He states that he had an episode of vomiting yesterday. It has been 4-5 days since he had a bowel movement and feels constipated. States that he would like to wean down on morphine due to its constipating effects. He states that he is coughing and producing phlegm. In ER with leukocytosis 15, noted patchy multilobar pneumonia on chest x-ray. Baseline troponin minutely elevated at 17, nonspecific TW abnormality on EKG, some flattening 1, aVL, lateral precordial leads. Review of Systems Const: Denies: fever(s), chills, body aches or malaise ENMT: Denies: throat pain Card: Denies: chest pain, edema, pre-syncope or dyspnea on exertion Resp: Reports: dyspnea and productive cough; Denies: change in phlegm color or hemoptysis GI: Reports: vomiting and constipation; Denies: abdominal pain, nausea, diarrhea, hematochezia or melena : Denies: flank pain, difficulty urinating, urinary frequency or hematuria Musc: Denies: back pain, joint swelling or joint redness Skin/Breast: Denies: rash or new lesions Neuro: Denies: headache(s), numbness in extremities, weakness in extremities, dizziness, confusion or seizure-like activity Medications/Allergies Home Medications Medication Instructions Recorded Confirmed Last Taken Type alendronate 70 mg tablet 70 mg PO Q7D 04/16/19 01/22/23 11/21/22 History cholecalciferol (vitamin D3) 25 25 mcg PO DAILY@11/15/21 01/22/23 11/26/22 History mcg (1,000 unit) tablet (Vitamin D3) ferrous sulfate 325 mg (65 mg 325 mg PO EVERY OTHER DAY 01/18/22 01/08/23 11/26/22 History iron) tablet polyethylene glycol 3350 17 gram 17 g PO EVERY OTHER DAY 01/18/22 01/08/23 11/26/22 History oral powder packet albuterol sulfate 2.5 mg/3 mL 2.5 mg inhalation Q4H PRN 02/16/22 01/22/23 10/06/22 History (0.083 %) solution for nebulization Shortness Of Breath budesonide 0.5 mg/2 mL suspension 0.5 mg inhalation BID 02/16/22 01/22/23 11/27/22 History for nebulization guaifenesin 100 mg/5 mL oral liquid 100 mg PO Q4H PRN Cough 02/16/22 01/08/23 2 Weeks Ago History ~04/12/22 ipratropium 0.5 mg-albuterol 3 mg 3 ml inhalation TID 02/16/22 01/08/23 11/27/22 History (2.5 mg base)/3 mL nebulization soln morphine 30 mg tablet,extended 30 mg PO TID@02/16/22 01/08/23 11/27/22 History release aspirin 81 mg tablet,delayed 81 mg PO DAILY #90 tabs 02/20/22 01/22/23 11/26/22 Rx release clopidogrel 75 mg tablet 75 mg PO DAILY #90 tabs 02/20/22 01/22/23 11/22/22 Rx nitroglycerin 0.4 mg sublingual 0.4 mg sublingual Q5M PRN chest 02/20/22 01/08/23 Unknown Rx tablet pain #30 tabs finasteride 5 mg tablet 5 mg PO BEDTIME 04/17/22 01/08/23 11/26/22 History pramoxine-calamine 1 %-8 % lotion 1 applic topical TID PRN itching 05/24/22 01/08/23 Unknown Rx (Calamine Medicated) #177 mL escitalopram oxalate 20 mg tablet 20 mg PO DAILY@07/13/22 01/08/23 11/26/22 History losartan 25 mg tablet 25 mg PO DAILY@07/13/22 01/08/23 11/26/22 History magnesium hydroxide 400 mg/5 mL 30 ml PO Q72H PRN if no bm in 3 07/13/22 01/08/23 Unknown History oral suspension (Milk of Magnesia) days bisacodyl 10 mg rectal suppository 10 mg VA DAILY PRN Constipation 09/05/22 01/22/23 Unknown History (Dulcolax (bisacodyl)) dextran 70-hypromellose (PF) 0.1 1 drp ophthalmic (eye) QID 09/05/22 01/22/23 11/27/22 History %-0.3 % eye drops in a dropperette (Artificial Tears (PF)) fluticasone fur. 100 mcg-umeclid 1 inh inhalation DAILY@09/05/22 01/08/23 11/26/22 History 62.5 mcg-vilant 25 mcg inhalat.powder (Trelegy Ellipta) furosemide 20 mg tablet (Lasix) 20 mg PO DAILY 09/05/22 01/08/23 11/26/22 History insulin aspart U-100 100 unit/mL See Rx Instructions .Route .COMPLEX 09/05/22 01/08/23 11/27/22 History (3 mL) subcutaneous pen (Novolog FlexPen U-100 Insulin aspart) menthol 5.8 mg lozenges ([place] 5.8 mg mucous membrane Q2H PRN 09/05/22 01/08/23 Unknown History Cough Drops) Cough metoprolol succinate 50 mg 50 mg PO DAILY@09/05/22 01/08/23 11/27/22 History tablet,extended release 24 hr omeprazole 20 mg capsule,delayed 20 mg PO DAILY@09/05/22 01/08/23 11/26/22 History release potassium chloride 10 mEq 10 meq PO DAILY@09/05/22 01/08/23 11/26/22 History tablet,extended release rosuvastatin 20 mg tablet 20 mg PO BEDTIME 09/05/22 01/08/23 11/26/22 History tamsulosin 0.4 mg capsule 0.4 mg PO BEDTIME 09/05/22 01/08/23 11/26/22 History bisacodyl 5 mg tablet,delayed 5 mg PO DAILY PRN Constipation 10/12/22 01/22/23 Unknown History release (Dulcolax (bisacodyl)) buspirone 5 mg tablet 5 mg PO BID 10/12/22 01/22/23 11/26/22 History ondansetron 4 mg oral soluble film 4 mg PO DAILY PRN nausea and 11/12/22 01/08/23 Unknown Rx vomiting #10 ea insulin degludec 100 unit/mL (3 28 unit SUBCUT BEDTIME 11/27/22 01/08/23 11/25/22 History mL) subcutaneous pen (Tresiba FlexTouch U-100 insulin) azithromycin 250 mg tablet See Rx Instructions PO .COMPLEX #6 12/08/22 01/22/23 Unknown Rx (Zithromax) tabs loperamide 2 mg capsule 2 mg PO .COMPLEX diarrhea #30 caps 01/22/23 01/22/23 Unknown Rx lorazepam 1 mg tablet 0.5 - 1 mg PO Q6H PRN Severe 01/22/23 01/22/23 Unknown Rx Nausea #30 tabs prochlorperazine maleate 10 mg 10 mg PO Q4H PRN Mild Nausea #30 01/22/23 01/22/23 Unknown Rx tablet (Compazine) tabs Allergies Allergy/AdvReac Type Severity Reaction Status Date / Time tree and shrub pollen Allergy ADR-Headach Verified 02/05/23 18:44 e PFSH Acute PFSH: Medical History (Updated 02/05/23 @ 20:19 by Leonard Spicer MD) Acute and chronic respiratory failure with hypercapnia Acute exacerbation of chronic obstructive airways disease Atherosclerosis of coronary artery Chronic low back pain with left-sided sciatica 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 Community acquired pneumonia COPD (chronic obstructive pulmonary disease) COPD (chronic obstructive pulmonary disease) Diabetes GERD (gastroesophageal reflux disease) Iron deficiency anemia Low back pain of over 3 months duration Lung cancer Lung cancer Lung cancer Pleural mass Pneumonia Pulmonary emboli Shortness of breath Type 2 diabetes mellitus Surgical History (Updated 02/05/23 @ 20:19 by Leonard Spicer MD) H/O esophagogastroduodenoscopy (05/10/20) History of bone marrow biopsy History of lobectomy of lung right lung-Dr. Hwang -[place] Hx of cholecystectomy Hx of eye surgery bilat-Dr. Navarrete did right and Dr. Perez in [place] Hx of kyphoplasty 07/05/[address] Powell Status post colonoscopy (05/11/20) normal Family History Brother Cancer Diabetes Heart disease Social History Smoking and tobacco/nicotine status: former use of tobacco/nicotine (smoked x 40 years) Quit status (tobacco/nicotine): has quit using Year quit tobacco: 2016 - 1 PPD x 45 Years Former quit date comment: Started at age 17 Second hand smoke exposure: No Alcohol intake: former Year of sobriety/quit date alcohol: 2013 Former alcohol use details: beer Substance/Drug Use: never Lives independently: Yes Household members: none Marital status: service: No Current occupational status: disabled Do you think of yourself as: Straight/Heterosexual Current gender identity: Male Vitals/I&O/Wt Last Vital Signs Temp 98.9 F 02/05/23 18:34 Pulse 87 02/05/23 20:00 Resp 18 02/05/23 20:00 BP 135/53 02/05/23 20:00 Pulse Ox 92 02/05/23 20:00 O2 Del Method Nasal Cannula 02/05/23 20:00 O2 Flow Rate 3 02/05/23 20:00 Weight last 48 hrs Weight 81.647 kg Physical Exam Const: COMMON NORMALS: patient oriented x3 and alert GENERAL APPEARANCE: cooperative ORIENTATION/CONSCIOUSNESS: Yes awake HENMT: COMMON NORMALS: oropharynx normal Neck/C-Spine: COMMON NORMALS: no JVD Resp: COMMON NORMALS: normal respiratory effort AUSCULTATION: clear to auscultation bilaterally and diminished lung sounds Cardio: COMMON NORMALS: no JVD, regular rhythm, S1 normal heart sound present, S2 normal heart sound present and No murmurs present (Cardio) RHYTHM: regular rhythm HEART SOUNDS: S1 normal heart sound present and S2 normal heart sound present GI: COMMON NORMALS: Normal to inspection, nondistended, normoactive bowel sounds present, Soft to palpation and non-tender PALPATION: Yes Soft to palpation Extremity: COMMON NORMALS: no joint enlargement and no pedal edema Neuro: COMMON NORMALS: patient oriented x3 and moves all extremities SENSORIUM/ORIENTATION: Yes alert Skin: COMMON NORMALS: no rashes or lesions noted GENERAL SKIN EXAM: no ra shes or lesions noted Data 02/05/23 18:47 02/05/23 18:47 A&P Assessment and plan (1) Community acquired pneumonia: Productive cough, dyspnea, pleuritic chest pain, multilobar patchy pneumonia on chest x-ray review. WBC reviewed, leukocytosis 15,000, neutrophils reviewed, predominantly neutrophilic 13.09. Other findings not suggestive of sepsis at this time. Received ceftriaxone and azithromycin, will continue at this time. We will request COVID PCR panel. Continue empiric antibiotic coverage with ceftriaxone and azithromycin for now. Check MRSA PCR. Collect sputum culture. Urine bacterial antigens. At risk of severe/life-threatening pneumonia with history of lung cancer, currently on so on pembrolizumab. Given elevated risk of complications decision to initiate treatment in the hospital with which she is agreeable. Discussed with ER ph ysician, ER documentation reviewed. Continue oxygen support. At baseline on 3 L nasal cannula oxygen. He additionally reported episode of vomiting yesterday. Has been constipated the last 4-5 days. Additional possibility of aspiration pneumonitis versus pneumonia. He additionally does report coughing intermittently with food and/or drink. Will require speech therapy assessment. Aspiration precautions. Underlying COPD possibly with mild exacerbation, does have productive cough, dyspnea. Remote history of PE, no tachycardia, oxygen level is as usual. Maintain blood pressure. However, does have risk factors of PE, history, pleuritic chest discomfort. Will assess D-dimer for now. Lovenox VT prophylaxis for now, but monitor platelets as noted multiple cytopenia. IS, flutter valve, expectorant. (2) Recurrent non-small cell lung cancer: Oncology note reviewed, on pembrolizumab last received on 01/22. May contribute to risk of pneumonia and/or pneumonitis. (3) Vomiting: Episode of vomiting yesterday, possibly secondary to const ipation/pseudoobstruction, has not had a bowel movement in 4-5 days, on chronic opiates, he states would like to wean down on morphine due to constipating effects. Will obtain abdominal obstructive series. PPI. Antiemetics as needed. Currently no nausea or vomiting. Work on obstipation. Suppository, add bowel regimen. CC CLD for now. (4) Constipation: As above, add bowel regimen. Start with suppository. He would like to wean down on morphine doses due to constipating effects. (5) Encounter for long-term opiate analgesic use: He would like to wean down on morphine doses due to constipating effects. (6) Goals of care, counseling/discussion: In case of transient isolated respiratory failure would be okay with intubation. In case of cardiopulmonary arrest let me go , would not want cardiopulmonary resuscitation. In terms of family states has a sister and niece. Plan COPD: Possibly mild exacerbation with Cough, dyspnea. Diminished air entry on exam. Breathing treatments. Antibiotics as above. We will give a brief course of prednisone for now. Reassess condition. Collect sputum culture if able to provide. Chest pain: Mostly pleuritic in nature secondary to pneumonia. However, does have history of CAD. Will complete troponin EKG series. So far on my interpretation no suggestion of acute WI, although does have T wave flattening in 1, aVL, lateral precordial leads. Reviewed baseline troponin. Monitor on telemetry. Follow symptoms. Palpitations: Monitor on telemetry. Mild thrombocytopenia: Noted on review of platelets. Follow-up CBC. Mild hyponatremia: Unrestricted sodium in diet. CAD, CHF, currently does not appear to be in decompensated failure. Monitor. DM 2, SSI, CC diet JOSE MANUEL, hemoglobin appears to be at baseline. Repeat CBC. Chronic back pain, Other medical problems Requesting home medications to be confirmed. Please reconcile once available. Attestations Medical Necessity Statement*: Place in observation for additional assessment management of pneumonia in a gentleman with underlying lung cancer, on pembrolizumab, possible aspiration pneumonia, obstipation, possible functional bowel obstruction, on long-term opioids, with COPD exacerbation, chest pain, history of underlying CAD. Diagnoses Community acquired pneumonia J18.9 Recurrent non-small cell lung cancer C34.90 Vomiting R11.10 Constipation K59.00 Encounter for long-term opiate analgesic use Z79.891 Goals of care, counseling/discussion Z71.89
--- NOTE | 2023-02-05 20:33 | ECG_ITS ---
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 Measurements Intervals [place] Rate: 77 P: 92 WI: 157 QRS: 63 QRSD: 82 T: 70 QT: 349 QTc: 397 Interpretive Statements SINUS RHYTHM ANTEROSEPTAL MYOCARDIAL INFARCTION , OF INDETERMINATE AGE [40+ ms Q WAVE IN V1-V4] Compared to ECG 02/05/2023 18:55:39 Myocardial infarct finding now present T-wave abnormality no longer present Electronically Signed On 02-06-2023 8:03:04 CDT by Jaden Quiroz M.D. [email or web address] [id number]
[2023-02-05] MEDS: cefTRIAXone 1,000 MG in sodium chloride 0.9% (plus) 50 ML 100 MG IV (20:40)
[2023-02-05 20:44] LABS: SARS Covid-2 Antigen negative (Negative)
--- NOTE | 2023-02-05 20:46 | XRR_ITS ---
PROCEDURE INFORMATION: Exam: XR Abdomen Exam date and time: 02/05/2023 8:53 PM Age: 72 years old Clinical indication: Abdominal pain; Acute; Additional info: Vomiting, obstipation, assess for obstruction TECHNIQUE: Imaging protocol: Radiologic exam of the abdomen. Views: 2 Views. Upright and supine views. COMPARISON: MS bone scan whole body* [id number] 07/02/2017 7:52 AM FINDINGS: Gastrointestinal tract: Normal. No bowel dilation. Intraperitoneal space: 5 mm calcification in the right abdomen. Bones/joints: L2 kyphoplasty cement. XR/XR abdomen min 2V [id number] IMPRESSION: 1. Nonobstructive bowel gas pattern. 2. Small calcification in the right abdomen could represent a renal calculus or gallstone.
[2023-02-05 20:59] LABS: D Dimer 1.23 ug/mLFEU (0-0.59)
[2023-02-05 21:01] LABS: Troponin 5 2HR 17.78 ng/L (0-15)
[2023-02-05 21:04] LABS: Troponin 5 2HR Delta 0.78 ABS# (0-10)
--- NOTE | 2023-02-05 21:27 | PC.NURSE ---
Unable to start azithromycin due to pyxis being out of 250 mL bags.
[2023-02-05] MEDS: azithromycin 500 MG in sodium chloride 0.9% 250 ML 250 MG IV (22:20)
[2023-02-05 22:47] LABS: Glucose Point of Care 158 mg/dL (70-110)
[2023-02-05] MEDS: insulin lispro 100 unit/1 mL SUBCUT (22:47)
[2023-02-05] MEDS: insulin glargine 100 units/1 mL 20 UNIT SUBCUT (22:47)
[2023-02-05] MEDS: enoxaparin 30 mg/0.3 mL Syringe SUBCUT (22:47)
[2023-02-05] MEDS: guaiFENesin 600 mg Tablet PO (22:48)
[2023-02-05] MEDS: predniSONE 20 mg Tablet PO (22:48)
[2023-02-06] VITALS (15 sets, daily range): BP systolic 107–151; BP diastolic 58–65; PULSE 57–74; RESP 16–20; TEMP 36.4–36.9; O2SAT 92–97
--- NOTE | 2023-02-06 00:05 | CTR_ITS ---
PROCEDURE INFORMATION: Exam: CTA Chest With Contrast Exam date and time: 02/06/2023 1:34 AM Age: 72 years old Clinical indication: Angina and dyspnea; Chest wall pain; Patient HX: HX of lung cancer; Additional info: Hypoxia, dyspnea, pleuritic chest pain, lung CA TECHNIQUE: Imaging protocol: Computed tomographic angiography of the chest with contrast. Exam focused on the arteries. 3D rendering (Not supervised by radiologist): MIP and/or 3D reconstructed images were created by the technologist. Radiation optimization: All CT scans at this facility use at least one of these dose optimization techniques: automated exposure control; mA and/or kV adjustment per patient size (includes targeted exams where dose is matched to clinical indication); or iterative reconstruction. Contrast material: OMNI 350; Contrast volume: 140 ml; Contrast route: INTRAVENOUS (IV); REPORTING DATA: Count of CT and Cardiac NM exams in prior 12 months: This patient has received 4 known CTs and 0 known cardiac nuclear medicine studies in the 12 months prior to the current study. COMPARISON: CT angio chest PE protcl [id number] 02/15/2022 11:51 PM RADIATION DOSE METRICS: Total DLP (mGy-cm): 505.74 FINDINGS: Pulmonary arteries: Normal. No pulmonary emboli. Aorta: Normal caliber thoracic aorta. Thyroid: Homogeneous thyroid. Lungs: Retained secretions are noted throughout the tracheobronchial tree. Prior right lower lobectomy. Moderate to advanced centrilobular emphysema. In the year since the prior exam, there has been development of a rounded mass in the apicoposterior segment left upper lobe measuring 2.1 x 2.3 cm. There is also masslike density in the right upper lobe measuring 4.2 x 3.1 cm. Large area of mass like opacity has enlarged in the posterior basilar left lower lobe. Additional areas of dependent change are noted. Pleural spaces: Unremarkable. No pneumothorax. No pleural effusion. Heart: Unremarkable. No cardiomegaly. No pericardial effusion. Coronary arteries: Patchy coronary artery calcification. Lymph nodes: Roll Weigher AP window node measures 1.3 cm short axis diameter, previously 0.8 cm. There has also been enlargement of additional mediastinal lymph nodes. A left paratracheal node measures 1.5 cm short axis diameter, previously 0.6 cm. Right paratracheal node measures 1.3 cm short axis diameter, previously 0.5 cm. No supraclavicular or axillary adenopathy. Diaphragm: Small sliding hiatal hernia. Adrenal glands: Normal adrenals. Bones/joints: No acute fracture or bony destructive lesion. Vertebroplasty cement is noted at L2. There is a partly visualized compression deformity of L3 which appears chronic. Soft tissues: A right lateral chest wall hernia is unchanged from prior. CT/CT angio chest PE protcl [id number] IMPRESSION: 1. No findings of acute pulmonary embolism. 2. There has been interval development multifocal mass-like opacities throughout both lungs. Findings could represent pneumonia, but any could also represent recurrent tumor. There has been interval increase in the volume of mediastinal adenopathy. COMMENTS: In the absence of a history or active diagnosis of lung cancer, it is recommended that this patient with emphysema be evaluated for enrollment in a low dose CT lung cancer screening program.
--- NOTE | 2023-02-06 00:41 | ECG_ITS ---
[facility] Test Date: 2023-02-06 Pat Name: Moses Cardoza Department: Room: 252 Gender: Male Hog Ringer: : 1950 Requested By: Beverly You Order Number: [id number] Rafiq MD: Jaden Quiroz M.D. Measurements Intervals [place] Rate: 67 P: 68 MS: 101 QRS: 38 QRSD: 105 T: 50 QT: 366 QTc: 388 Interpretive Statements SINUS RHYTHM WITH SHORT MS INTERVAL Compared to ECG 02/05/2023 20:33:16 Short MS interval now present Myocardial infarct finding no longer present Electronically Signed On 02-06-2023 8:02:37 CDT by Jaden Quiroz M.D. [id number]
[2023-02-06 00:47] LABS: Basophils % 0.2 %; Eosinophils # 0.1 10^3/uL (0.0-0.8); Eosinophils % 0.6 %; Hematocrit 30.4 % (37-53); Lymphocytes # 0.8 10^3/uL (0.8-4.8); Lymphocytes % 5.8 %; Mean Corpuscular HGB Conc 31.9 g/dL (30-55); Mean Corpuscular Hemoglobin 27.4 pg (27-33); Mean Corpuscular Volume 85.9 fl (82-101); Mean Platelet Volume 10.1 fL (7.4-10.4); Monocytes # 0.7 10^3/uL (0.2-0.9); Monocytes % 5.2 %; Neutrophils # 12.32 10^3/uL (1.8-7.7); Neutrophils % 87.8 %; Nucleated Red Blood Cells % 0 %; Platelet Count 149 10^3/cmm (157-399); Red Blood Count 3.54 10^6/uL (3.85-5.65); Red Cell Distribution Width 12.8 % (12.1-15.1); White Blood Count 14.02 10^3/uL (3.29-11.43)
[2023-02-06 01:08] LABS: Troponin 5 6HR 15.39 ng/L (0-15); Troponin 5 6HR Delta -1.61 ng/L (0-12)
[2023-02-06 01:31] LABS: Alanine Aminotransferase 10 U/L (0-41); Albumin Level 3.2 g/dL (3.5-5.2); Alkaline Phosphatase 84 U/L (40-130); Anion Gap 12.3 (5-19); Aspartate Amino Transferase 14 U/L (0-40); Blood Urea Nitrogen 19 mg/dL (8-23); Calcium 10.4 mg/dL (8.5-10.5); Carbon Dioxide 28 mmol/L (22-29); Chloride 99 mmol/L (98-107); Globulin 2.8 g/dL (1.3-4.6); Glucose 129 mg/dL (65-115); Osmolality Calculated 284 mOsm/kg (285-295); Potassium 4.3 mmol/L (3.5-5.1); Sodium 135 mmol/L (136-145); Total Bilirubin 0.4 mg/dL (0.15-1.2)
[2023-02-06] MEDS: iohexol 350 mg/mL 500 mL Btl (per mL) IV (01:46)
[2023-02-06] MEDS: ipratropium-albuterol 3 mL Neb INHALATION ×4 (02:10→20:48)
[2023-02-06 06:29] LABS: Glucose Point of Care 183 mg/dL (70-110)
[2023-02-06] MEDS: predniSONE 20 mg Tablet PO (08:22)
[2023-02-06] MEDS: guaiFENesin 600 mg Tablet PO ×2 (08:22→18:15)
[2023-02-06] MEDS: polyethylene glycol 3350 Pkt 17 gm PO ×2 (08:22→18:15)
[2023-02-06] MEDS: insulin lispro 100 unit/1 mL SUBCUT ×4 (08:22→21:59)
[2023-02-06] MEDS: pantoprazole DR 40 mg Tablet PO (08:22)
--- NOTE | 2023-02-06 10:46 | PC.CHAP ---
Pastoral Care Encounter/Spiritual Assessment Type of Contact [] Declined tax representative visit [] Patient/Family/Request visit [] Outpatient visit [] Follow-up visit [] Physician referral [] Code/Alert [x] Routine visit [] Staff referral [] Actively dying [] Patient sleeping [] Family support [] [] Out of room [] Palliative care [] [] Receiving care in room [] Pre-surgical visit [] Trauma [] Long length of stay [] ICU visit [] Other: Relational/Emotional Strength [x] Patient feels connected with others/family/visitors/staff [] Distress [] Loneliness/isolation [] Abandonment Spirituality of Patient [] Person of Rae [] Attends Evangelical of their Rae [] Believes in Prayer [] Reads Bible or Buddhist materials [] There are Spiritual issues to be addressed Consulting Business Developer Interventions [x] Prayer [] Active listening [] Non-anxious presence [] Spiritual/emotional support [] Crisis/trauma care [] Spiritual counseling [] Bereavement support [] Provided bereavement packet [] Provided Bible/devotional materials [] Provided toy/stuffed animal, coloring book to patient or family member [] Provided Communion [] Anointing/Staples [] Salvation [] Completed spiritual assessment [] Other: Impact on Illness or Injury [] Angry [] Fearful [] Anxious [] Often cries [] Exhaustion [] Unable to work [] Unable to attend scientology [] Unable to walk/stand [] Unable to read [] Unable to drive [] Unable to eat/drink [] Unable to sleep [] Unable to be with family [] Patient intubated [] Other: Summary Time spent with patient 10 min
[2023-02-06 12:11] LABS: Glucose Point of Care 169 mg/dL (70-110)
[2023-02-06] MEDS: flu vacc pf 2023-24 (6 mos+) 60 MCG IM (12:24)
--- NOTE | 2023-02-06 15:17 | PM.PN ---
Subjective Subjective: Patient was seen this morning, he does report shortness of breath, cough, no fevers, no chills, no abdominal pain no hemoptysis Vitals/I&O/Wt Last Vital Signs Temp 97.5 F L 02/06/23 12:00 Pulse 70 02/06/23 13:40 Resp 18 02/06/23 13:40 BP 125/62 02/06/23 12:00 Pulse Ox 95 02/06/23 13:40 O2 Del Method Nasal Cannula 02/06/23 13:40 O2 Flow Rate 4 02/06/23 13:40 02/06/23 02/06/23 02/06/23 06:59 14:59 22:59 Intake Total 730 / 900 840 / 840 Output Total 1050 / 1050 Balance 730 / 900 -210 / -210 Weight last 48 hrs Weight 81.647 kg Physical Exam Const: COMMON NORMALS: no acute distress and patient oriented x3 Resp: COMMON NORMALS: normal respiratory effort, No retractions and No use of accessory muscles AUSCULTATION: wheezes Cardio: COMMON NORMALS: regular rate, regular rhythm, S1 normal heart sound present and S2 normal heart sound present RATE: regular rate RHYTHM: regular rhythm HEART SOUNDS: S1 normal heart sound present and S2 normal heart sound present GI: COMMON NORMALS: Normal to inspection, nondistended, normoactive bowel sounds present and non-tender Extremity: COMMON NORMALS: no pedal edema Neuro: COMMON NORMALS: patient oriented x3 Psych: COMMON NORMALS: mental status grossly normal Data 02/06/23 00:38 02/06/23 00:38 Micro: Microbiology 02/06/23 10:11 Bacterial Antigens - Final Urine,Voided 02/06/23 10:11 Legionella Urinary Antigen - Final Urine,Voided 02/05/23 20:22 Blood Culture - Preliminary Blood SPECIMEN COLLECTED 02/05/23 20:16 Blood Culture - Preliminary Blood SPECIMEN COLLECTED A&P Assessment and plan (1) Community acquired pneumonia: -CTA - CT/CT angio chest PE protcl [id number] IMPRESSION: 1. ? No findings of acute pulmonary embolism. 2. ? There has been interval development multifocal mass-like opacities throughout both lungs. Findings could represent pneumonia, but any could also represent recurrent tumor. There has been interval increase in the volume of mediastinal adenopathy. -continue rocephin and azithromycin -continue duoneb -continue prednisone -follow cultures (2) Recurrent non-small cell lung cancer: Oncology note reviewed, on pembrolizumab last received on 01/22. May contribute to risk of pneumonia and/or pneumonitis. (3) Vomiting: resolved (4) Constipation: As above, add bowel regimen. Start with suppository. He would like to wean down on morphine doses due to constipating effects. (5) Encounter for long-term opiate analgesic use: He would like to wean down on morphine doses due to constipating effects. (6) Goals of care, counseling/discussion: In case of transient isolated respiratory failure would be okay with intubation. In case of cardiopulmonary arrest let me go , would not want cardiopulmonary resuscitation. In terms of family states has a sister and niece. Plan COPD: Possibly mild exacerbation with Cough, dyspnea. Diminished air entry on exam. Breathing treatments. Antibiotics as above. We will give a brief course of prednisone for now. Reassess condition. Collect sputum culture if able to provide. Chest pain: Mostly pleuritic in nature secondary to pneumonia. However, does have history of CAD. Will complete troponin EKG series. So far on my interpretation no suggestion of acute [place], although does have T wave flattening in 1, aVL, lateral precordial leads. Reviewed baseline troponin. Monitor on telemetry. Follow symptoms. Palpitations: Monitor on telemetry. Mild thrombocytopenia: Noted on review of platelets. Follow-up CBC. Mild hyponatremia: Unrestricted sodium in diet. CAD, CHF, currently does not appear to be in decompensated failure. Monitor. DM 2, SSI, CC diet JOSE MANUEL, hemoglobin appears to be at baseline. Repeat CBC. Chronic back pain, Other medical problems Requesting home medications to be confirmed. Please reconcile once available. Attestations Medical Necessity Statement*: Patient requires hospitalization for multifocal pneumonia, requiring iv abx Diagnoses Community acquired pneumonia J18.9 Recurrent non-small cell lung cancer C34.90 Vomiting R11.10 Constipation K59.00 Encounter for long-term opiate analgesic use Z79.891 Goals of care, counseling/discussion Z71.89
[2023-02-06 16:57] LABS: Glucose Point of Care 267 mg/dL (70-110)
[2023-02-06] MEDS: morphine IR 15 mg Tablet PO (18:14)
[2023-02-06] MEDS: azithromycin 500 MG in sodium chloride 0.9% 250 ML 250 MG IV (18:15)
[2023-02-06] MEDS: cefTRIAXone 1,000 MG in sodium chloride 0.9% (plus) 50 ML 100 MG IV (19:42)
[2023-02-06 21:24] LABS: Glucose Point of Care 190 mg/dL (70-110)
[2023-02-06] MEDS: enoxaparin 40 mg/0.4 mL Syringe SUBCUT (21:58)
[2023-02-06] MEDS: insulin glargine 100 units/1 mL 20 UNIT SUBCUT (21:59)
[2023-02-07] VITALS (11 sets, daily range): BP systolic 111–138; BP diastolic 62–74; PULSE 63–90; RESP 16–17; TEMP 36.6–37.6; O2SAT 92–99
[2023-02-07] MEDS: ipratropium-albuterol 3 mL Neb INHALATION ×4 (02:05→20:40)
[2023-02-07 05:38] LABS: Alanine Aminotransferase 19 U/L (0-41); Albumin Level 3.2 g/dL (3.5-5.2); Alkaline Phosphatase 86 U/L (40-130); Blood Urea Nitrogen 13 mg/dL (8-23); Calcium 11.1 mg/dL (8.5-10.5); Carbon Dioxide 29 mmol/L (22-29); Chloride 100 mmol/L (98-107); Globulin 3.8 g/dL (1.3-4.6); Glucose 88 mg/dL (65-115); Osmolality Calculated 284 mOsm/kg (285-295); Sodium 137 mmol/L (136-145); Total Bilirubin 0.4 mg/dL (0.15-1.2)
[2023-02-07 05:43] LABS: Anion Gap 11.9 (5-19); Potassium 3.9 mmol/L (3.5-5.1)
[2023-02-07 05:44] LABS: Aspartate Amino Transferase 24 U/L (0-40)
[2023-02-07 06:53] LABS: Basophils % 0.1 %; Eosinophils # 0.1 10^3/uL (0.0-0.8); Eosinophils % 0.4 %; Hematocrit 32.4 % (37-53); Lymphocytes # 0.7 10^3/uL (0.8-4.8); Lymphocytes % 5.4 %; Mean Corpuscular HGB Conc 32.7 g/dL (30-55); Mean Corpuscular Hemoglobin 27.3 pg (27-33); Mean Corpuscular Volume 83.5 fl (82-101); Mean Platelet Volume 10.9 fL (7.4-10.4); Monocytes # 0.8 10^3/uL (0.2-0.9); Monocytes % 5.7 %; Neutrophils # 12.07 10^3/uL (1.8-7.7); Nucleated Red Blood Cells % 0 %; Platelet Count 171 10^3/cmm (157-399); Red Blood Count 3.88 10^6/uL (3.85-5.65); White Blood Count 13.71 10^3/uL (3.29-11.43)
[2023-02-07 06:55] LABS: Glucose Point of Care 100 mg/dL (70-110)
[2023-02-07] MEDS: pantoprazole DR 40 mg Tablet PO (08:24)
[2023-02-07] MEDS: guaiFENesin 600 mg Tablet PO ×2 (08:24→17:53)
[2023-02-07] MEDS: polyethylene glycol 3350 Pkt 17 gm PO (08:24)
[2023-02-07] MEDS: predniSONE 20 mg Tablet PO (08:24)
[2023-02-07] MEDS: morphine IR 15 mg Tablet PO ×2 (08:26→17:55)
[2023-02-07 11:39] LABS: Glucose Point of Care 234 mg/dL (70-110)
[2023-02-07] MEDS: insulin lispro 100 unit/1 mL SUBCUT ×3 (11:57→20:25)
[2023-02-07 14:05] LABS: Methicillin-Resist S.aureu PCR DETECTED (NOT DETECTED)
--- NOTE | 2023-02-07 16:51 | P.PN_ITS ---
Vitals/I&O/Wt Last Vital Signs Temp 98.0 F 02/07/23 16:00 Pulse 66 02/07/23 16:00 Resp 17 02/07/23 16:00 BP 136/74 02/07/23 16:00 Pulse Ox 99 02/07/23 16:00 O2 Del Method Nasal Cannula 02/07/23 16:00 O2 Flow Rate 4 02/07/23 13:02 02/07/23 02/07/23 02/07/23 06:59 14:59 22:59 Intake Total 720 / 720 Output Total 200 / 2100 Balance -200 / -480 720 / 720 Weight last 48 hrs Weight 81.647 kg Physical Exam Const: COMMON NORMALS: no acute distress and patient oriented x3 Resp: COMMON NORMALS: normal respiratory effort, No retractions and No use of accessory muscles AUSCULTATION: wheezes Cardio: COMMON NORMALS: regular rate, regular rhythm, S1 normal heart sound present and S2 normal heart sound present RATE: regular rate RHYTHM: regular rhythm HEART SOUNDS: S1 normal heart sound present and S2 normal heart sound present GI: COMMON NORMALS: Normal to inspection, nondistended, normoactive bowel s ounds present and non-tender Extremity: COMMON NORMALS: no pedal edema Neuro: COMMON NORMALS: patient oriented x3 Psych: COMMON NORMALS: mental status grossly normal Data 02/07/23 06:23 02/07/23 04:28 Micro: Microbiology 02/05/23 20:22 Blood Culture - Preliminary Blood NEGATIVE TO DATE 02/05/23 20:16 Blood Culture - Preliminary Blood NEGATIVE TO DATE 02/06/23 02:00 Gram Stain - Final Sputum - Expectorated Sputum A&P Assessment and plan (1) Community acquired pneumonia: -CTA - CT/CT angio chest PE protcl [id number] IMPRESSION: 1. ? No findings of acute pulmonary embolism. 2. ? There has been interval development multifocal mass-like opacities throughout both lungs. Findings could represent pneumonia, but any could also represent recurrent tumor. There has been interval increase in the volume of mediastinal adenopathy. -continue rocephin and azithromycin -continue duoneb -continue prednisone -follow cultures (2) Recurrent non-small cell lung cancer: Oncology note reviewed, on pembrolizumab last received on 01/22. May contribute to risk of pneumonia and/or pneumonitis. (3) Vomiting: resolved (4) Constipation: As above, add bowel regimen. Start with suppository. He would like to wean down on morphine doses due to constipating effects. (5) Encounter for long-term opiate analgesic use: He would like to wean down on morphine doses due to constipating effects. (6) Goals of care, counseling/discussion: In case of transient isolated respiratory failure would be okay with intubation. In case of cardiopulmonary arrest let me go , would not want cardiopulmonary resuscitation. In terms of family states has a sister and niece. Plan COPD: Possibly mild exacerbation with Cough, dyspnea. Diminished air entry on exam. Breathing treatments. Antibiotics as above. We will give a brief course of prednisone for now. Reassess condition. Collect sputum culture if able to provide. Chest pain: Mostly pleuritic in nature secondary to pneumonia. However, does have history of CAD. Will complete troponin EKG series. So far on my interpretation no suggestion of acute [place], although does have T wave flattening in 1, aVL, lateral precordial leads. Reviewed baseline troponin. Monitor on telemetry. Follow symptoms. Palpitations: Monitor on telemetry. Mild thrombocytopenia: Noted on review of platelets. Follow-up CBC. Mild hyponatremia: Unrestricted sodium in diet. CAD, CHF, currently does not appear to be in decompensated failure. Monitor. DM 2, SSI, CC diet JOSE MANUEL, hemoglobin appears to be at baseline. Repeat CBC. Chronic back pain, Other medical problems Plan for today continue antibiotic therapy, monitor cultures, Attestations Medical Necessity Statement*: Patient requires hospitalization for pneumonia, multifocal, with immunocompromise state, requiring IV antibiotics Diagnoses Community acquired pneumonia J18.9 Recurrent non-small cell lung cancer C34.90 Vomiting R11.10 Constipation K59.00 Encounter for long-term opiate analgesic use Z79.891 Goals of care, counseling/discussion Z71.89
[2023-02-07 17:10] LABS: Glucose Point of Care 405 mg/dL (70-110)
[2023-02-07] MEDS: azithromycin 500 MG in sodium chloride 0.9% 250 ML 250 MG IV (17:57)
[2023-02-07] MEDS: cefTRIAXone 1,000 MG in sodium chloride 0.9% (plus) 50 ML 100 MG IV (20:20)
[2023-02-07] MEDS: insulin glargine 100 units/1 mL 20 UNIT SUBCUT (20:24)
[2023-02-07] MEDS: acetaminophen 325 mg Tablet 650 MG PO (20:25)
[2023-02-07 20:46] LABS: Glucose Point of Care 367 mg/dL (70-110)
[2023-02-07] MEDS: enoxaparin 40 mg/0.4 mL Syringe SUBCUT (21:50)
[2023-02-08 02:00] VITALS: PULSE 68; RESP 15; O2SAT 98
[2023-02-08] MEDS: ipratropium-albuterol 3 mL Neb INHALATION ×2 (03:37→08:40)
[2023-02-08 04:02] VITALS: BP 160/71; PULSE 60; RESP 17; TEMP 36.8; O2SAT 95
[2023-02-08 05:53] LABS: Alanine Aminotransferase 18 U/L (0-41); Albumin Level 2.8 g/dL (3.5-5.2); Alkaline Phosphatase 86 U/L (40-130); Aspartate Amino Transferase 15 U/L (0-40); Basophils % 0.2 %; Blood Urea Nitrogen 12 mg/dL (8-23); Calcium 10.8 mg/dL (8.5-10.5); Carbon Dioxide 27 mmol/L (22-29); Chloride 107 mmol/L (98-107); Eosinophils # 0.1 10^3/uL (0.0-0.8); Globulin 3.8 g/dL (1.3-4.6); Glucose 80 mg/dL (65-115); Hematocrit 28.7 % (37-53); Lymphocytes # 0.8 10^3/uL (0.8-4.8); Lymphocytes % 8.3 %; Mean Corpuscular HGB Conc 33.4 g/dL (30-55); Mean Corpuscular Hemoglobin 28.2 pg (27-33); Mean Corpuscular Volume 84.2 fl (82-101); Mean Platelet Volume 10.9 fL (7.4-10.4); Monocytes # 0.6 10^3/uL (0.2-0.9); Monocytes % 6.7 %; Neutrophils % 83.4 %; Nucleated Red Blood Cells % 0 %; Osmolality Calculated 293 mOsm/kg (285-295); Red Blood Count 3.41 10^6/uL (3.85-5.65); Red Cell Distribution Width 12.9 % (12.1-15.1); Sodium 142 mmol/L (136-145); Total Bilirubin 0.2 mg/dL (0.15-1.2); Total Protein 6.6 g/dL (6.6-8.7); White Blood Count 9.24 10^3/uL (3.29-11.43)
[2023-02-08 05:57] LABS: Platelet Count 165 10^3/cmm (157-399); Slide Review Slide Review Perform
[2023-02-08 05:59] LABS: Anion Gap 11.7 (5-19); Potassium 3.7 mmol/L (3.5-5.1)
[2023-02-08 06:46] LABS: Glucose Point of Care 90 mg/dL (70-110)
[2023-02-08 07:17] LABS: SARS Covid-2 Antigen negative (Negative)
[2023-02-08 08:00] VITALS: BP 148/93; PULSE 72; RESP 16; TEMP 36.7; O2SAT 98
[2023-02-08 08:20] VITALS: PULSE 110; RESP 20; O2SAT 92
[2023-02-08 08:44] VITALS: PULSE 112
[2023-02-08] MEDS: polyethylene glycol 3350 Pkt 17 gm PO (08:55)
[2023-02-08] MEDS: pantoprazole DR 40 mg Tablet PO (08:55)
[2023-02-08] MEDS: predniSONE 20 mg Tablet PO (08:55)
[2023-02-08] MEDS: guaiFENesin 600 mg Tablet PO (08:55)
[2023-02-08] MEDS: morphine IR 15 mg Tablet PO (09:27)
--- NOTE | 2023-02-08 10:11 | PM.DCS ---
Discharge Providers Date of Admission: 02/05/23 21:49 Date of Discharge: February 08, 2023 Attending Provider at Admission: Leonard Spicer Attending Provider at Discharge: Celso Marquis MD Primary Care Provider: Daniel Leyva DO Diagnoses at Discharge Discharge Diagnosis (1) Community acquired pneumonia: Status: Acute (2) Recurrent non-small cell lung cancer: Status: Acute (3) Vomiting: Status: Acute (4) Constipation: Status: Acute (5) Encounter for long-term opiate analgesic use: Status: Chronic (6) Goals of care, counseling/discussion: Status: Acute Reason for Visit Reason for Visit: SOB, Chest pain Hospital Course Hospital Course Pleasant 72-year-old gentleman with history of lung cancer, recently started on Keytruda, last dose 01/22, COPD, history of PE, CAD, CHF, DM 2, JOSE MANUEL, chronic back pain, other medical problems, [facility] resident, normally on 3 L nasal cannula oxygen, was brought in for evaluation after complaints of pleuritic chest pain, palpitations which have resolved, but has also been having increased shortness of breath.? He is coughing.? He states that he had an episode of vomiting yesterday.? It has been 4-5 days since he had a bowel movement and feels constipated.? States that he would like to wean down on morphine due to its constipating effects. He states that he is coughing and producing phlegm.? In ER with leukocytosis 15, noted patchy multilobar pneumonia on chest x-ray.? Baseline troponin minutely elevated at 17, nonspecific TW abnormality on EKG, some flattening 1, aVL, lateral precordial leads. This is a 72-year-old male, who presents [facility] for shortness of breath, admitted for community-acquired pneumonia, multifocal pneumonia, received IV antibiotics, steroids for COPD exacerbation, overall clinically improved, discharged to long term facility on antibiotic therapy, sputum cultures did show coagulase-staph species, in addition discharged on doxycycline. Patient CT angiogram of the chest did show multifocal masslike opacities throughout the lungs, findings could represent pneumonia but any could also represent recurrent tumor, I am going to have patient follow-up with pulmonary, follow-up with hematology oncology as outpatient. Physical Exam Const: COMMON NORMALS: no acute distress and patient oriented x3 Resp: COMMON NORMALS: normal respiratory effort, No retractions, No use of accessory muscles and clear to auscultation bilaterally AUSCULTATION: clear to auscultation bilaterally Cardio: COMMON NORMALS: regular rate, regular rhythm, S1 normal heart sound present and S2 normal heart sound present RATE: regular rate RHYTHM: regular rhythm HEART SOUNDS: S1 normal heart sound present and S2 normal heart sound present GI: COMMON NORMALS: Normal to inspection, nondistended, normoactive bowel sounds present and non-tender Extremity: COMMON NORMALS: no pedal edema Neuro: COMMON NORMALS: patient oriented x3 Discharge Data Studies Completed and Pending Completed Studies During Hospitalization Category Date Time Status CTA chest [CT angio chest PE protcl [id number]] Routine Cat Scan 02/06/23 00:05 Completed XR abdomen min 2V [id number] Stat Exams 02/05/23 20:46 Completed XR chest 1V portable [id number] Stat Exams 02/05/23 18:41 Completed Pending at discharge Category Date Time Status Blood Culture Stat Lab 02/05/23 20:22 Results Sputum Culture and Gram Stain Routine Lab 02/05/23 21:49 Results Radiology Impressions Chest X-Ray 02/05/23 18:41 IMPRESSION: Patchy multilobar pneumonia. Abdomen X-Ray 02/05/23 20:46 IMPRESSION: 1. Nonobstructive bowel gas pattern. 2. Small calcification in the right abdomen could represent a renal calculus or gallstone. Chest CTA 02/06/23 00:05 IMPRESSION: 1. No findings of acute pulmonary embolism. 2. There has been interval development multifocal mass-like opacities throughout both lungs. Findings could represent pneumonia, but any could also represent recurrent tumor. There has been interval increase in the volume of mediastinal adenopathy. COMMENTS: In the absence of a history or active diagnosis of lung cancer, it is recommended that this patient with emphysema be evaluated for enrollment in a low dose CT lung cancer screening program. Laboratory Results WBC 9.24 10^3/uL (3.29-11.43) 02/08/23 04:41 Corrected WBC Cancelled 02/07/23 04:28 RBC 3.41 10^6/uL (3.85-5.65) L 02/08/23 04:41 Hgb 9.60 g/dL (11.27-16.99) L 02/08/23 04:41 Hct 28.7 % (37-53) L 02/08/23 04:41 MCV 84.2 fl (82-101) 02/08/23 04:41 MCH 28.2 pg (27-33) 02/08/23 04:41 MCHC 33.4 g/dL (30-55) 02/08/23 04:41 RDW 12.9 % (12.1-15.1) 02/08/23 04:41 Plt Count 165 10^3/cmm (157-399) 02/08/23 04:41 MPV 10.9 fL (7.4-10.4) H 02/08/23 04:41 Gran % Cancelled 02/07/23 04:28 Neut % (Auto) 83.4 % 02/08/23 04:41 Lymph % (Auto) 8.3 % 02/08/23 04:41 [place] % (Auto) 6.7 % 02/08/23 04:41 Eos % (Auto) 1.0 % 02/08/23 04:41 Baso % (Auto) 0.2 % 02/08/23 04:41 Neut # (Auto) 7.70 10^3/uL (1.8-7.7) 02/08/23 04:41 Lymph # (Auto) 0.8 10^3/uL (0.8-4.8) 02/08/23 04:41 [place] # (Auto) 0.6 10^3/uL (0.2-0.9) 02/08/23 04:41 Eos # (Auto) 0.1 10^3/uL (0.0-0.8) 02/08/23 04:41 Baso # (Auto) 0.0 10^3/uL (0.0-0.1) 02/08/23 04:41 Absolute Gran (auto) Cancelled 02/07/23 04:28 Nucleated RBC % (auto) 0 % 02/08/23 04:41 Nucleated RBCs # 0.0 /100WBC 02/08/23 04:41 D-Dimer 1.23 ug/mLFEU (0-0.59) H 02/05/23 20:16 Sodium 142 mmol/L (136-145) 02/08/23 04:41 Potassium 3.7 mmol/L (3.5-5.1) 02/08/23 04:41 Chloride 107 mmol/L (98-107) 02/08/23 04:41 Carbon Dioxide 27 mmol/L (22-29) 02/08/23 04:41 Anion Gap 11.7 (5-19) 02/08/23 04:41 BUN 12 mg/dL (8-23) 02/08/23 04:41 Creatinine 0.6 mg/dL (0.7-1.2) L 02/08/23 04:41 GFR Calculation Not Reportable 02/08/23 04:41 Glucose 80 mg/dL (65-115) 02/08/23 04:41 POC Glucose 90 mg/dL (70-110) 02/08/23 06:30 Calculated Osmolality 293 mOsm/kg (285-295) 02/08/23 04:41 Calcium 10.8 mg/dL (8.5-10.5) H 02/08/23 04:41 Total Bilirubin 0.2 mg/dL (0.15-1.2) 02/08/23 04:41 AST 15 U/L (0-40) 02/08/23 04:41 ALT 18 U/L (0-41) 02/08/23 04:41 Alkaline Phosphatase 86 U/L (40-130) 02/08/23 04:41 Troponin T Baseline 17 ng/L (0-15) H 02/05/23 18:47 Troponin T 120 Minute 17.78 ng/L (0-15) H 02/05/23 20:16 Delta Troponin T 0.78 ABS# (0-10) 02/05/23 20:16 Troponin T Hi Sens 6Hr 15.39 ng/L (0-15) H 02/06/23 00:38 Troponin T Hi Sens 6Hr Delta -1.61 ng/L (0-12) L 02/06/23 00:38 Total Protein 6.6 g/dL (6.6-8.7) 02/08/23 04:41 Albumin 2.8 g/dL (3.5-5.2) L 02/08/23 04:41 Globulin 3.8 g/dL (1.3-4.6) 02/08/23 04:41 Lipase 11 U/L (13-60) L 02/05/23 18:47 Nasal Influ A H1 2009 PCR Cancelled 02/06/23 08:27 Adenovirus (PCR) Cancelled 02/06/23 08:27 C. pneumoniae DNA (PCR) Cancelled 02/06/23 08:27 Coronavirus 229E (PCR) Cancelled 02/06/23 08:27 Human Metapneumovir PCR Cancelled 02/06/23 08:27 Influenza A (H1) PCR Cancelled 02/06/23 08:27 Influenza A (H3) PCR Cancelled 02/06/23 08:27 Influenza Type A (PCR) Cancelled 02/06/23 08:27 Influenza Type B (PCR) Cancelled 02/06/23 08:27 M. pneumoniae (PCR) Cancelled 02/06/23 08:27 Parainfluenza 1 (PCR) Cancelled 02/06/23 08:27 Parainfluenza 2 (PCR) Cancelled 02/06/23 08:27 Parainfluenza 3 (PCR) Cancelled 02/06/23 08:27 Parainfluenza 4 (PCR) Cancelled 02/06/23 08:27 RSV Type A (PCR) Cancelled 02/06/23 08:27 RSV Type B (PCR) Cancelled 02/06/23 08:27 Entero/Rhino (PCR) Cancelled 02/06/23 08:27 SARS-CoV-2 (PCR) Cancelled 02/06/23 08:27 SARS-CoV-2 Ag (Rapid) negative (Negative) 02/08/23 06:40 MRSA (PCR) Detected (NOT DETECTED) A 02/06/23 15:28 Vitals Last Vital Signs Temp 98.1 F 02/08/23 08:00 Pulse 112 H 02/08/23 08:44 Resp 20 H 02/08/23 08:20 BP 148/93 02/08/23 08:00 Pulse Ox 92 02/08/23 08:20 O2 Del Method Nasal Cannula 02/08/23 08:20 O2 Flow Rate 4 02/08/23 08:20 Discharge Plan Discharge Patient Disposition: Xfer SNF Condition: Stable Prescriptions: New levofloxacin 750 mg tablet 750 mg PO DAILY 5 Days Qty: 5 0RF prednisone 20 mg Tablet 20 mg PO DAILY 5 Days Qty: 5 0RF doxycycline hyclate 100 mg tablet 100 mg PO BID 5 Days Qty: 10 0RF Continued Calamine Medicated 1-8 % lotion 1 applic topical TID PRN (Reason: itching) Qty: 177 6RF polyethylene glycol 3350 17 gram powder in packet 17 g PO EVERY OTHER DAY ferrous sulfate 325 mg (65 mg iron) tablet 325 mg PO EVERY OTHER DAY finasteride 5 mg tablet 5 mg PO BEDTIME buspirone 5 mg tablet 7.5 mg PO BID loperamide 2 mg capsule 2 mg PO .COMPLEX Qty: 30 1RF Rx Instructions: administer 2 capsules after first loose stool, then 1 capsule after each loose stool, max dose 8mg lorazepam 1 mg tablet 0.5 - 1 mg PO Q6H PRN (Reason: Severe Nausea) Qty: 30 1RF alendronate 70 mg Tablet 70 mg PO Q7D Rx Instructions: ON SATURDAY cholecalciferol (vitamin D3) [Vitamin D3] 25 mcg (1,000 unit) Tablet 25 mcg PO DAILY@06 ipratropium-albuterol 0.5 mg-3 mg(2.5 mg base)/3 mL Solution For Nebulization 3 ml INHALATION TID albuterol sulfate 2.5 mg /3 mL (0.083 %) solution for nebulization 2.5 mg inhalation Q4H PRN (Reason: Shortness Of Breath) morphine 30 mg tablet extended release 30 mg PO TID@07,15,23 guaifenesin 100 mg/5 mL Liquid 100 mg PO Q4H PRN (Reason: Cough) budesonide 0.5 mg/2 mL Suspension For Nebulization 0.5 mg inhalation BID clopidogrel 75 mg Tablet 75 mg PO DAILY Qty: 90 2RF aspirin 81 mg Tablet,Delayed Release (Dr/Ec) 81 mg PO DAILY Qty: 90 3RF nitroglycerin 0.4 mg tablet, sublingual 0.4 mg sublingual Q5M PRN (Reason: chest pain) Qty: 30 6RF Rx Instructions: do not exceed 3 doses per episode losartan 25 mg tablet 25 mg PO DAILY@07 escitalopram oxalate 20 mg Tablet 20 mg PO DAILY@07 magnesium hydroxide [Milk of Magnesia] 400 mg/5 mL Suspension 30 ml PO Q72H PRN (Reason: if no bm in 3 days) Rx Instructions: do not give to renal patients-go to dulcolax orders bisacodyl [Dulcolax (bisacodyl)] 5 mg tablet,delayed release (DR/EC) 5 mg PO DAILY PRN (Reason: Constipation) Rx Instructions: if no results from mom potassium chloride 10 mEq tablet extended release 10 meq PO DAILY@07 tamsulosin 0.4 mg capsule 0.4 mg PO BEDTIME bisacodyl [Dulcolax (bisacodyl)] 10 mg Suppository 10 mg ME DAILY PRN (Reason: Constipation) Rx Instructions: if no results from mom omeprazole 20 mg Capsule,Delayed Release(Dr/Ec) 20 mg PO DAILY@07 furosemide [Lasix] 20 mg Tablet 20 mg PO DAILY insulin aspart U-100 [Novolog FlexPen U-100 Insulin] 100 unit/mL (3 mL) insulin pen See Rx Instructions .ROUTE .COMPLEX Rx Instructions: sliding scale before meals and at bedtime if blood sugar is less than 60 call md 150-200=0 units 201-250=2 units 251-300=4 units 301-350=6 units 351-400=8 units if blood sugar is greater than 400 give 8 units call pcp is bs is <60 and >400 if symptomatic rosuvastatin 20 mg tablet 20 mg PO BEDTIME [place] Cough Drops 5.8 mg Lozenge 5.8 mg MUCOUS MEMBRANE Q2H PRN (Reason: Cough) Artificial Tears (PF) 0.1-0.3 % Dropperette 1 drp ophthalmic (eye) QID metoprolol succinate 50 mg tablet extended release 24 hr 50 mg PO DAILY@07 Trelegy Ellipta 100-62.5-25 mcg blister with device 1 inh inhalation DAILY@07 Anbesol (benzocaine) 10 % Gel 1 applic MUCOUS MEMBRANE TID PRN (Reason: Mouth Pain) acetaminophen 325 mg Tablet 650 mg PO QID PRN (Reason: Pain) Changed insulin degludec [Tresiba FlexTouch U-100] 100 unit/mL (3 mL) Insulin Pen 20 unit SUBCUT BEDTIME Qty: 15 0RF Discharge Orders: Discharge Order (Routine); Ordered 02/08/23 Ordered By: Celso Marquis Referrals: [facility] [Outside] Daniel Leyva DO [Primary Care Provider] - Discharge Diet: As Directed Discharge Activity: Resume usual activity Patient Instructions: Opioid Safety Activity Restrictions/Additional Instructions: - If you have worsening shortness of breath or fevers please go to emergency room -Please follow-up with pulmonary in the next 2 weeks -Please monitor blood sugars closely Discharge Attestations Time Spent in Discharge Care*: greater than 30 min Quality Metrics Clinical Quality Measures [ No reported AMI, CVA or VTE this stay] Coding Level of Care Code 25645 Total time (in minutes) for Discharge: 45 Diagnoses Community acquired pneumonia J18.9 Recurrent non-small cell lung cancer C34.90 Vomiting R11.10 Constipation K59.00 Encounter for long-term opiate analgesic use Z79.891 Goals of care, counseling/discussion Z71.89
--- NOTE | 2023-02-08 10:23 | PC.SOCIAL ---
IMM Update pg 2 of IMM not updated as patient is currently in observation status.
[2023-02-08 11:40] LABS: Glucose Point of Care 270 mg/dL (70-110)
[2023-02-08 12:38] VITALS: PULSE 112
== END 2023-02-08 12:15 | disposition skilled nursing facility (03) ==
LOC: ER 20:00 → MEDSURG 21:26
PROVIDERS: Admitting Provider Internal Medicine; Emergency Provider Emergency Medicine; PCP Internal Medicine; Visit Provider Family Medicine
DX: J18.9 Pneumonia, unspecified organism (principal); C34.90 Malignant neoplasm of unspecified part of unspecified bronchus or lung; R11.10 Vomiting, unspecified; K59.00 Constipation, unspecified; Z79.891 Long term (current) use of opiate analgesic; Z71.89 Other specified counseling; J44.1 Chronic obstructive pulmonary disease with (acute) exacerbation; Z86.711 Personal history of pulmonary embolism; I25.10 Atherosclerotic heart disease of native coronary artery without angina pectoris; I50.9 Heart failure, unspecified; E11.9 Type 2 diabetes mellitus without complications; Z99.81 Dependence on supplemental oxygen; Z79.899 Other long term (current) drug therapy; G89.29 Other chronic pain; M54.9 Dorsalgia, unspecified; D69.6 Thrombocytopenia, unspecified; Z87.891 Personal history of nicotine dependence
CPT/HCPCS: 36415; 36416; 71045; 71275; 74019; 80053; 82962; 83690; 84484; 85025; 85378; 86403; 87040; 87070; 87077; 87186; 87205; 87426; 87449; 87641; 90471; 90686; 92523; 92610; 93005; 94640; 94664; 96361; 96365; 96367; 96372; 99285; G0378; J0456; J0696; J1650; J1815; J7050; J7512; Q9967

== ENCOUNTER 2023-02-11 14:30 | Outpatient (CLI) | payer MEDICARE, MEDICAID, SELFPAY | END 2023-02-11 14:31 | disposition home or self-care (01) | LOC: SLEEP 02-12 09:21 | PROVIDERS: PCP Internal Medicine; Visit Provider Internal Medicine | DX: G47.33 Obstructive sleep apnea (adult) (pediatric) (principal) | CPT/HCPCS: 99215; G0399 ==

== ENCOUNTER 2023-02-12 09:00 | Oncology outpatient (recurring) (ONCR) | payer MEDICARE, MEDICAID, SELFPAY ==
[2023-02-12 09:22] LABS: Basophils % 0.3 %; Eosinophils # 0.4 10^3/uL (0.0-0.8); Eosinophils % 3.7 %; Hematocrit 36.6 % (37-53); Lymphocytes # 1.2 10^3/uL (0.8-4.8); Lymphocytes % 10.1 %; Mean Corpuscular HGB Conc 31.7 g/dL (30-55); Mean Corpuscular Hemoglobin 27.6 pg (27-33); Mean Corpuscular Volume 87.1 fl (82-101); Mean Platelet Volume 10.5 fL (7.4-10.4); Monocytes # 0.6 10^3/uL (0.2-0.9); Neutrophils # 9.69 10^3/uL (1.8-7.7); Neutrophils % 80.5 %; Nucleated Red Blood Cells % 0 %; Platelet Count 238 10^3/cmm (157-399); Red Cell Distribution Width 12.9 % (12.1-15.1); White Blood Count 12.04 10^3/uL (3.29-11.43)
[2023-02-12 09:34] VITALS: BP 126/68; PULSE 52; RESP 18; TEMP 36.4; O2SAT 93
[2023-02-12 10:03] LABS: Alanine Aminotransferase 20 U/L (0-41); Albumin Level 3.4 g/dL (3.5-5.2); Alkaline Phosphatase 83 U/L (40-130); Anion Gap 9.2 (5-19); Aspartate Amino Transferase 16 U/L (0-40); Blood Urea Nitrogen 19 mg/dL (8-23); Calcium 11.7 mg/dL (8.5-10.5); Carbon Dioxide 36 mmol/L (22-29); Chloride 98 mmol/L (98-107); Globulin 3.8 g/dL (1.3-4.6); Glucose 234 mg/dL (65-115); Osmolality Calculated 298 mOsm/kg (285-295); Potassium 4.2 mmol/L (3.5-5.1); Sodium 139 mmol/L (136-145); Thyroid Stimulating Hormone 1.53 uIU/mL (0.27-4.20); Total Bilirubin 0.3 mg/dL (0.15-1.2); Total Protein 7.2 g/dL (6.6-8.7)
== END 2023-02-12 23:59 | disposition home or self-care (01) ==
PROVIDERS: Nurse Practitioner Family; PCP Internal Medicine; Visit Provider Internal Medicine Medical Oncology
DX: D50.9 Iron deficiency anemia, unspecified (principal); C34.32 Malignant neoplasm of lower lobe, left bronchus or lung; Z99.81 Dependence on supplemental oxygen; Z87.891 Personal history of nicotine dependence; C34.90 Malignant neoplasm of unspecified part of unspecified bronchus or lung; Z79.899 Other long term (current) drug therapy
CPT/HCPCS: 80053; 84443; 85025; 99215

== ENCOUNTER 2023-02-19 09:22 | Oncology outpatient (recurring) (ONCR) | payer MEDICARE, MEDICAID, SELFPAY ==
[2023-02-19 10:18] LABS: Basophils % 0.4 %; Eosinophils # 0.4 10^3/uL (0.0-0.8); Eosinophils % 3.6 %; Hematocrit 36.4 % (37-53); Lymphocytes # 1.1 10^3/uL (0.8-4.8); Lymphocytes % 9.8 %; Mean Corpuscular Volume 90.1 fl (82-101); Mean Platelet Volume 10.2 fL (7.4-10.4); Monocytes # 0.6 10^3/uL (0.2-0.9); Monocytes % 5.9 %; Neutrophils # 8.64 10^3/uL (1.8-7.7); Neutrophils % 79.8 %; Nucleated Red Blood Cells % 0 %; Platelet Count 210 10^3/cmm (157-399); Red Blood Count 4.04 10^6/uL (3.85-5.65); Red Cell Distribution Width 13.5 % (12.1-15.1); White Blood Count 10.82 10^3/uL (3.29-11.43)
[2023-02-19 10:47] LABS: Alanine Aminotransferase 15 U/L (0-41); Albumin Level 3.7 g/dL (3.5-5.2); Alkaline Phosphatase 85 U/L (40-130); Aspartate Amino Transferase 11 U/L (0-40); Blood Urea Nitrogen 17 mg/dL (8-23); Calcium 12.5 mg/dL (8.5-10.5); Carbon Dioxide 35 mmol/L (22-29); Chloride 102 mmol/L (98-107); Globulin 3.3 g/dL (1.3-4.6); Glucose 216 mg/dL (65-115); Osmolality Calculated 302 mOsm/kg (285-295); Sodium 142 mmol/L (136-145); Total Bilirubin 0.3 mg/dL (0.15-1.2)
[2023-02-19] MEDS: pembrolizumab 200 MG in sodium chloride 0.9% 250 ML 516 MG IV (10:56)
[2023-02-19 11:48] VITALS: BP 117/63; PULSE 45; RESP 18; TEMP 36.4; O2SAT 99
== END 2023-02-19 23:59 | disposition home or self-care (01) ==
PROVIDERS: PCP Internal Medicine; Visit Provider Internal Medicine Medical Oncology
DX: D50.9 Iron deficiency anemia, unspecified (principal); C34.32 Malignant neoplasm of lower lobe, left bronchus or lung; Z99.81 Dependence on supplemental oxygen; Z87.891 Personal history of nicotine dependence; C34.90 Malignant neoplasm of unspecified part of unspecified bronchus or lung; Z79.899 Other long term (current) drug therapy; Z53.9 Procedure and treatment not carried out, unspecified reason
CPT/HCPCS: 80053; 85025; 96413; 99214; J7050; J9271

== ENCOUNTER 2023-02-19 14:51 | Observation (INO) | payer MEDICARE, MEDICAID, SELFPAY ==
[2023-02-19] VITALS (38 sets, daily range): BP systolic 104–161; BP diastolic 38–71; PULSE 46–82; RESP 13–28; TEMP 36.6–36.8; O2SAT 92–98; BMI 23.7
--- NOTE | 2023-02-19 15:12 | ED_ITS ---
HPI - Recheck/Abnormal Lab/Rx General: Chief Complaint: Recheck/Abnormal Lab/Rx Stated Complaint: Calcium High Time Seen by Provider: 02/19/23 14:54 Source: patient and EMS Mode of arrival: EMS Limitations: no limitations History of Present Illness: 72-year-old male has a history of non-small cell lung cancer patient had labs drawn today he had a calcium level 12.5 his oncologist wanted to come up to the ER to be treated for that. He has no complaints here he denies any pain anywhere he has had no vomiting or diarrhea he has had slight decreased appetite and activity Review of Systems Const: Denies: fever(s), chills, body aches or change in appetite Eyes: Denies: blurry vision or eye discomfort ENMT: Denies: throat pain or dental pain Card: Denies: chest pain Resp: Denies: dyspnea GI: Denies: abdominal pain, nausea, vomiting or diarrhea : Denies: dysuria Musc: Denies: neck pain or back pain Skin/Breast: Denies: rash Neuro: Denies: headache(s) PFSH ED PFSH: Medical History Acute and chronic respiratory failure with hypercapnia Acute exacerbation of chronic obstructive airways disease Atherosclerosis of coronary artery Chronic low back pain 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 Hwang -[place] Hx of cholecystectomy Hx of eye surgery bilat-Dr. Navarrete did right and Dr. Perez in [place] Hx of kyphoplasty 07/05/[address] Powell Status post colonoscopy (05/11/20) normal Family History Brother Cancer Diabetes Heart disease Social History Smoking and tobacco/nicotine status: former use of tobacco/nicotine (smoked x 40 years) Quit status (tobacco/nicotine): has quit using Year quit tobacco: 2016 - 1 PPD x 45 Years Former quit date comment: Started at age 17 Second hand smoke exposure: No Alcohol intake: former Year of sobriety/quit date alcohol: 2014 Former alcohol use details: beer Substance/Drug Use: never Lives independently: Yes Household members: none Marital status: service: No Current occupational status: disabled Do you think of yourself as: Straight/Heterosexual Current gender identity: Male Physical Exam Const: COMMON NORMALS: patient oriented x3 GENERAL APPEARANCE: ill appearing and frail appearing HENMT: COMMON NORMALS: normocephalic and atraumatic HEAD & SCALP: normocephalic and atraumatic Eye: COMMON NORMALS: Equal, round and reactive pupils present and EOMs intact bilaterally PUPIL: Yes Equal, round and reactive pupils present Neck/C-Spine: COMMON NORMALS: full ROM and supple Chest: COMMONS NORMALS: normal inspection of the chest and normal palpation of entire chest wall Resp: COMMON NORMALS: normal respiratory effort, No retractions, No use of accessory muscles and clear to auscultation bilaterally AUSCULTATION: clear to auscultation bilaterally Cardio: COMMON NORMALS: regular rate, regular rhythm and No murmurs present (Cardio) RATE: regular rate RHYTHM: regular rhythm GI: COMMON NORMALS: Normal to inspection, nondistended, normoactive bowel sounds present, Soft to palpation, non-tender and no masses PALPATION: Yes Soft to palpation Extremity: COMMON NORMALS: normal to inspection and full ROM Neuro: COMMON NORMALS: patient oriented x3, moves all extremities and no focal motor deficits Psych: COMMON NORMALS: mental status grossly normal, Normal thought process present and cooperative THOUGHT PROCESS: Normal thought process present Skin: COMMON NORMALS: no rashes or lesions noted and no wounds GENERAL SKIN EXAM: no rashes or lesions noted Course Vital Signs: Vital signs: Vital Signs Temperature 98.2 F 02/19/23 14:55 Pulse Rate 47 L 02/19/23 15:20 Respiratory Rate 15 02/19/23 15:20 Blood Pressure 105/46 02/19/23 15:20 Pulse Oximetry 98 02/19/23 15:20 Oxygen Delivery Me thod Nasal Cannula 02/19/23 15:17 Oxygen Flow Rate 3 02/19/23 15:17 MDM - Recheck/Abnormal Lab/Rx Medical Decision Making Patient presents with hypercalcemia likely due to his cancer along with some dehydration I spoke to his oncologist along with hospitalist will admit for observation we will give IV fluids here. Medical Records I reviewed the patient's medical records. Lab Data I reviewed the patient's lab results. 02/19/23 14:40 02/19/23 14:40 Laboratory Results WBC 9.30 10^3/uL (3.29-11.43) 02/19/23 14:40 RBC 3.89 10^6/uL (3.85-5.65) 02/19/23 14:40 Hgb 10.80 g/dL (11.27-16.99) L 02/19/23 14:40 Hct 35.0 % (37-53) L 02/19/23 14:40 MCV 90.0 fl (82-101) 02/19/23 14:40 MCH 27.8 pg (27-33) 02/19/23 14:40 MCHC 30.9 g/dL (30-55) 02/19/23 14:40 RDW 13.5 % (12.1-15.1) 02/19/23 14:40 Plt Count 209 10^3/cmm (157-399) 02/19/23 14:40 MPV 9.6 fL (7.4-10.4) 02/19/23 14:40 Neut % (Auto) 75.9 % 02/19/23 14:40 Lymph % (Auto) 12.3 % 02/19/23 14:40 [place] % (Auto) 7.2 % 02/19/23 14:40 Eos % (Auto) 3.9 % 02/19/23 14:40 Baso % (Auto) 0.4 % 02/19/23 14:40 Neut # (Auto) 7.06 10^3/uL (1.8-7.7) 02/19/23 14:40 Lymph # (Auto) 1.1 10^3/uL (0.8-4.8) 02/19/23 14:40 [place] # (Auto) 0.7 10^3/uL (0.2-0.9) 02/19/23 14:40 Eos # (Auto) 0.4 10^3/uL (0.0-0.8) 02/19/23 14:40 Baso # (Auto) 0.0 10^3/uL (0.0-0.1) 02/19/23 14:40 Nucleated RBC % (auto) 0 % 02/19/23 14:40 Nucleated RBCs # 0.0 /100WBC 02/19/23 14:40 Sodium 141 mmol/L (136-145) 02/19/23 14:40 Potassium 4.8 mmol/L (3.5-5.1) 02/19/23 14:40 Chloride 103 mmol/L (98-107) 02/19/23 14:40 Carbon Dioxide 33 mmol/L (22-29) H 02/19/23 14:40 Anion Gap 9.8 (5-19) 02/19/23 14:40 BUN 19 mg/dL (8-23) 02/19/23 14:40 Creatinine 0.9 mg/dL (0.7-1.2) 02/19/23 14:40 GFR Calculation Not Reportable 02/19/23 14:40 Glucose 130 mg/dL (65-115) H 02/19/23 14:40 Calculated Osmolality 296 mOsm/kg (285-295) H 02/19/23 14:40 Calcium 12.3 mg/dL (8.5-10.5) H 02/19/23 14:40 Phosphorus 3.0 mg/dL (2.5-4.5) 02/19/23 14:40 Magnesium 1.9 mg/dL (1.7-2.3) 02/19/23 14:40 Total Bilirubin 0.3 mg/dL (0.15-1.2) 02/19/23 14:40 AST 11 U/L (0-40) 02/19/23 14:40 ALT 13 U/L (0-41) 02/19/23 14:40 Alkaline Phosphatase 80 U/L (40-130) 02/19/23 14:40 Total Protein 6.8 g/dL (6.6-8.7) 02/19/23 14:40 Albumin 3.5 g/dL (3.5-5.2) 02/19/23 14:40 Globulin 3.3 g/dL (1.3-4.6) 02/19/23 14:40 No radiology studies performed this visit Discharge Plan Discharge Patient Disposition: Placed in Observation Clinical Impression: Recurrent non-small cell lung cancer, Hypercalcemia Condition: Stable Prescriptions: No Action Calamine Medicated 1-8 % lotion 1 applic topical TID PRN (Reason: itching) Qty: 177 6RF polyethylene glycol 3350 17 gram powder in packet 17 g PO EVERY OTHER DAY ferrous sulfate 325 mg (65 mg iron) tablet 325 mg PO EVERY OTHER DAY finasteride 5 mg tablet 5 mg PO BEDTIME buspirone 5 mg tablet 7.5 mg PO BID loperamide 2 mg capsule 2 mg PO .COMPLEX Qty: 30 1RF Rx Instructions: administer 2 capsules after first loose stool, then 1 capsule after each loose stool, max dose 8mg lorazepam 1 mg tablet 0.5 - 1 mg PO Q6H PRN (Reason: Severe Nausea) Qty: 30 1RF alendronate 70 mg Tablet 70 mg PO Q7D Rx Instructions: ON SATURDAY cholecalciferol (vitamin D3) [Vitamin D3] 25 mcg (1,000 unit) Tablet 25 mcg PO DAILY@06 ipratropium-albuterol 0.5 mg-3 mg(2.5 mg base)/3 mL Solution For Nebulization 3 ml INHALATION TID albuterol sulfate 2.5 mg /3 mL (0.083 %) solution for nebulization 2.5 mg inhalation Q4H PRN (Reason: Shortness Of Breath) morphine 30 mg tablet extended release 30 mg PO TID@,, guaifenesin 100 mg/5 mL Liquid 100 mg PO Q4H PRN (Reason: Cough) budesonide 0.5 mg/2 mL Suspension For Nebulization 0.5 mg inhalation BID clopidogrel 75 mg Tablet 75 mg PO DAILY Qty: 90 2RF aspirin 81 mg Tablet,Delayed Release (Dr/Ec) 81 mg PO DAILY Qty: 90 3RF nitroglycerin 0.4 mg tablet, sublingual 0.4 mg sublingual Q5M PRN (Reason: chest pain) Qty: 30 6RF Rx Instructions: do not exceed 3 doses per episode losartan 25 mg tablet 25 mg PO DAILY@07 escitalopram oxalate 20 mg Tablet 20 mg PO DAILY@07 magnesium hydroxide [Milk of Magnesia] 400 mg/5 mL Suspension 30 ml PO Q72H PRN (Reason: if no bm in 3 days) Rx Instructions: do not give to renal patients-go to dulcolax orders bisacodyl [Dulcolax (bisacodyl)] 5 mg tablet,delayed release (DR/EC) 5 mg PO DAILY PRN (Reason: Constipation) Rx Instructions: if no results from mom potassium chloride 10 mEq tablet extended release 10 meq PO DAILY@07 tamsulosin 0.4 mg capsule 0.4 mg PO BEDTIME bisacodyl [Dulcolax (bisacodyl)] 10 mg Suppository 10 mg ME DAILY PRN (Reason: Constipation) Rx Instructions: if no results from mom omeprazole 20 mg Capsule,Delayed Release(Dr/Ec) 20 mg PO DAILY@07 furosemide [Lasix] 20 mg Tablet 20 mg PO DAILY insulin aspart U-100 [Novolog FlexPen U-100 Insulin] 100 unit/mL (3 mL) insulin pen See Rx Instructions .ROUTE .COMPLEX Rx Instructions: sliding scale before meals and at bedtime if blood sugar is less than 60 call md 150-200=0 units 201-250=2 units 251-300=4 units 301-350=6 units 351-400=8 units if blood sugar is greater than 400 give 8 units call pcp is bs is <60 and >400 if symptomatic rosuvastatin 20 mg tablet 20 mg PO BEDTIME [place] Cough Drops 5.8 mg Lozenge 5.8 mg MUCOUS MEMBRANE Q2H PRN (Reason: Cough) Artificial Tears (PF) 0.1-0.3 % Dropperette 1 drp ophthalmic (eye) QID metoprolol succinate 50 mg tablet extended release 24 hr 50 mg PO DAILY@07 Trelegy Ellipta 100-62.5-25 mcg blister with device 1 inh inhalation DAILY@07 Anbesol (benzocaine) 10 % Gel 1 applic MUCOUS MEMBRANE TID PRN (Reason: Mouth Pain) acetaminophen 325 mg Tablet 650 mg PO QID PRN (Reason: Pain) Tresiba FlexTouch U-100 100 unit/mL (3 mL) Insulin Pen 20 unit SUBCUT BEDTIME Qty: 15 0RF Referrals: Daniel Leyva DO [Primary Care Provider] - 1-3 days Patient Instructions: Confusion Coding Level of Care Code ED Furniture [employer] for Camila Ko
[2023-02-19] MEDS: sodium chloride 0.9% 1,000 ML 999 ML IV (15:14)
[2023-02-19 15:16] LABS: Basophils % 0.4 %; Eosinophils # 0.4 10^3/uL (0.0-0.8); Eosinophils % 3.9 %; Lymphocytes # 1.1 10^3/uL (0.8-4.8); Lymphocytes % 12.3 %; Mean Corpuscular HGB Conc 30.9 g/dL (30-55); Mean Corpuscular Hemoglobin 27.8 pg (27-33); Mean Platelet Volume 9.6 fL (7.4-10.4); Monocytes # 0.7 10^3/uL (0.2-0.9); Monocytes % 7.2 %; Neutrophils # 7.06 10^3/uL (1.8-7.7); Neutrophils % 75.9 %; Nucleated Red Blood Cells % 0 %; Platelet Count 209 10^3/cmm (157-399); Red Blood Count 3.89 10^6/uL (3.85-5.65); Red Cell Distribution Width 13.5 % (12.1-15.1)
[2023-02-19 15:39] LABS: Alanine Aminotransferase 13 U/L (0-41); Albumin Level 3.5 g/dL (3.5-5.2); Alkaline Phosphatase 80 U/L (40-130); Anion Gap 9.8 (5-19); Aspartate Amino Transferase 11 U/L (0-40); Blood Urea Nitrogen 19 mg/dL (8-23); Calcium 12.3 mg/dL (8.5-10.5); Carbon Dioxide 33 mmol/L (22-29); Chloride 103 mmol/L (98-107); Globulin 3.3 g/dL (1.3-4.6); Glucose 130 mg/dL (65-115); Osmolality Calculated 296 mOsm/kg (285-295); Potassium 4.8 mmol/L (3.5-5.1); Sodium 141 mmol/L (136-145); Total Bilirubin 0.3 mg/dL (0.15-1.2); Total Protein 6.8 g/dL (6.6-8.7)
[2023-02-19 15:51] LABS: Magnesium 1.9 mg/dL (1.7-2.3)
--- NOTE | 2023-02-19 16:25 | PC.PHAR ---
pt is from [facility]-medications entered are from the pts mar and tar that was sent with the pt
--- NOTE | 2023-02-19 16:29 | PM.HP ---
Providers/Chief Complaint Primary Care Provider: Daniel Leyva DO Chief Complaint: Calcium High History of Present Illness Moses Cardoza is a 72 year old male with a past medical history of non small cell lung cancer, on Keytruda, history of PE, CAD, CHF, type 2 diabetes mellitus, chronic back pain, chronic morphine, [facility] resident, on 3 L nasal cannula, who presents to [facility] from oncologist office due to concerns for hypercalcemia. Patient was recently admitted to [facility] for multifocal pneumonia, received IV antibiotics, steroids, discharged to snf facility, patient followed up with oncology, his next dose of chemotherapy has been held due to his recent infection, he denies any lightheadedness, dizziness, no nausea, vomiting does have a poor appetite, no recent weight loss, denies any chest pain, no palpitations, no dysuria, hematuria, does report diffuse joint pains, which is chronic for him, he is chronically on morphine, denies any kidney stones, Review of Systems Const: Denies: fever(s) Eyes: Denies: change in vision Card: Denies: chest pain Resp: Denies: dyspnea GI: Denies: abdominal pain : Denies: flank pain or difficulty urinating Neuro: Denies: headache(s), numbness in extremities, weakness in extremities, sensory changes, dizziness, vertigo, behavioral changes or Slurred speech present Endo: Denies: polyuria Medications/Allergies Home Medications Medication Instructions Recorded Confirmed Last Taken Type alendronate 70 mg tablet 70 mg PO Q7D 04/16/19 02/19/23 02/13/23 History cholecalciferol (vitamin D3) 25 25 mcg PO DAILY@11/15/21 02/19/23 02/19/23 History mcg (1,000 unit) tablet (Vitamin D3) ferrous sulfate 325 mg (65 mg 325 mg PO EVERY OTHER DAY 01/18/22 02/19/23 02/18/23 History iron) tablet polyethylene glycol 3350 17 gram 17 g PO EVERY OTHER DAY 01/18/22 02/19/23 02/18/23 History oral powder packet albuterol sulfate 2.5 mg/3 mL 2.5 mg inhalation Q4H PRN 02/16/22 02/19/23 10/06/22 History (0.083 %) solution for nebulization Shortness Of Breath budesonide 0.5 mg/2 mL suspension 0.5 mg inhalation BID 02/16/22 02/19/23 02/19/23 History for nebulization guaifenesin 100 mg/5 mL oral liquid 100 mg PO Q4H PRN Cough 02/16/22 02/19/23 2 Weeks Ago History ~04/12/22 ipratropium 0.5 mg-albuterol 3 mg 3 ml inhalation TID 02/16/22 02/19/23 02/19/23 History (2.5 mg base)/3 mL nebulization soln morphine 30 mg tablet,extended 30 mg PO TID@,,02/16/22 02/19/23 02/19/23 14:06 History release nitroglycerin 0.4 mg sublingual 0.4 mg sublingual Q5M PRN chest 02/20/22 02/19/23 Unknown Rx tablet pain #30 tabs finasteride 5 mg tablet 5 mg PO BEDTIME 04/17/22 02/19/23 02/18/23 History escitalopram oxalate 20 mg tablet 20 mg PO DAILY@07/13/22 02/19/23 02/19/23 History losartan 25 mg tablet 25 mg PO DAILY@07/13/22 02/19/23 02/19/23 History magnesium hydroxide 400 mg/5 mL 30 ml PO Q72H PRN if no bm in 3 07/13/22 02/19/23 Unknown History oral suspension (Milk of Magnesia) days bisacodyl 10 mg rectal suppository 10 mg GA DAILY PRN Constipation 09/05/22 02/19/23 Unknown History (Dulcolax (bisacodyl)) dextran 70-hypromellose (PF) 0.1 1 drp ophthalmic (eye) QID 09/05/22 02/19/23 02/19/23 History %-0.3 % eye drops in a dropperette (Artificial Tears (PF)) fluticasone fur. 100 mcg-umeclid 1 inh inhalation DAILY@09/05/22 02/19/23 02/19/23 History 62.5 mcg-vilant 25 mcg inhalat.powder (Trelegy Ellipta) furosemide 20 mg tablet (Lasix) 20 mg PO DAILY@09/05/22 02/19/23 02/19/23 History menthol 5.8 mg lozenges ([place] 5.8 mg mucous membrane Q2H PRN 09/05/22 02/19/23 Unknown History Cough Drops) Cough metoprolol succinate 50 mg 50 mg PO DAILY@09/05/22 02/19/23 02/19/23 History tablet,extended release 24 hr omeprazole 20 mg capsule,delayed 20 mg PO DAILY@09/05/22 02/19/23 02/19/23 History release potassium chloride 10 mEq 10 meq PO DAILY@09/05/22 02/19/23 02/19/23 History tablet,extended release rosuvastatin 20 mg tablet 20 mg PO BEDTIME 09/05/22 02/19/23 02/18/23 History tamsulosin 0.4 mg capsule 0.4 mg PO BEDTIME 09/05/22 02/19/23 02/18/23 History bisacodyl 5 mg tablet,delayed 10 mg PO DAILY PRN Constipation 10/12/22 02/19/23 Unknown History release (Dulcolax (bisacodyl)) buspirone 5 mg tablet 7.5 mg PO BID 10/12/22 02/19/23 02/19/23 History acetaminophen 325 mg tablet 650 mg PO Q6H PRN Pain 02/06/23 02/19/23 Unknown History benzocaine 10 % mucosal gel 1 applic mucous membrane TID PRN 02/06/23 02/19/23 Unknown History (Anbesol (benzocaine)) Mouth Pain insulin degludec 100 unit/mL (3 20 unit (0.2 mL) SUBCUT BEDTIME 02/08/23 02/19/23 02/18/23 Rx mL) subcutaneous pen (Tresiba #15 mL FlexTouch U-100 insulin) albuterol sulfate 90 mcg/actuation 2 puff inhalation Q6H PRN Dyspnea 02/19/23 02/19/23 Unknown History aerosol inhaler aspirin 81 mg tablet,delayed 81 mg PO DAILY@02/19/23 02/19/23 02/19/23 History release clopidogrel 75 mg tablet 75 mg PO DAILY@02/19/23 02/19/23 02/19/23 History insulin lispro 100 unit/mL See Rx Instructions .Route .COMPLEX 02/19/23 02/19/23 02/19/23 History subcutaneous pen (Humalog KwikPen (U-100) Insulin) pramoxine-calamine 1 %-8 % lotion 1 applic topical TID PRN itching 02/19/23 02/19/23 Unknown History (Calamine Plus (pramoxine-calamine)) sodium phosphates 19 gram-7 118 ml GA DAILY PRN Constipation 02/19/23 02/19/23 Unknown History gram/118 mL enema (Fleet Enema) Allergies Allergy/AdvReac Type Severity Reaction Status Date / Time levofloxacin Allergy ALGY-Hives Verified 02/19/23 16:04 tree and shrub pollen Allergy ADR-Headach Verified 02/19/23 16:04 e PFSH Acute PFSH: Medical History Acute and chronic respiratory failure with hypercapnia Acute exacerbation of chronic obstructive airways disease Atherosclerosis of coronary artery Chronic low back pain 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 Hwang -[place] Hx of cholecystectomy Hx of eye surgery bilat-Dr. Navarrete did right and Dr. Perez in [place] Hx of kyphoplasty 07/05/[address] Powell Status post colonoscopy (05/11/20) normal Family History Brother Cancer Diabetes Heart disease Social History Smoking and tobacco/nicotine status: former use of tobacco/nicotine (smoked x 40 years) Quit status (tobacco/nicotine): has quit using Year quit tobacco: 2016 - PPD x 45 Years Former quit date comment: Started at age 17 Second hand smoke exposure: No Alcohol intake: former Year of sobriety/quit date alcohol: 2014 Former alcohol use details: beer Substance/Drug Use: never Lives independently: Yes Household members: none Marital status: service: No Current occupational status: disabled Do you think of yourself as: Straight/Heterosexual Current gender identity: Male Vitals/I&O/Wt Last Vital Signs Temp 98.2 F 02/19/23 14:55 Pulse 56 L 02/19/23 16:06 Resp 13 02/19/23 16:00 BP 126/42 02/19/23 16:06 Pulse Ox 98 02/19/23 16:06 O2 Del Method Nasal Cannula 02/19/23 15:36 O2 Flow Rate 3 02/19/23 15:36 Weight last 48 hrs Weight 77.111 kg Physical Exam Const: COMMON NORMALS: no acute distress and patient oriented x3 HENMT: COMMON NORMALS: normocephalic HEAD & SCALP: normocephalic Eye: COMMON NORMALS: Equal, round and reactive pupils present and EOMs intact bilaterally Neck/C-Spine: COMMON NORMALS: no JVD Resp: COMMON NORMALS: normal respiratory effort, No retractions, No use of accessory muscles and clear to auscultation bilaterally AUSCULTATION: clear to auscultation bilaterally Cardio: COMMON NORMALS: no JVD, regular rate, regular rhythm, S1 normal heart sound present and S2 normal heart sound present RATE: regular rate RHYTHM: regular rhythm HEART SOUNDS: S1 normal heart sound present and S2 normal heart sound present GI: COMMON NORMALS: Normal to inspection, nondistended, normoactive bowel sounds present, Soft to palpation, non-tender, No hepatosplenomegaly present, no masses and no bruits PALPATION: Yes Soft to palpation and Yes No hepatosplenomegaly present Back/Pelvis: COMMON NORMALS: no CVA tenderness Extremity: COMMON NORMALS: capillary refill normal, no clubbing, cyanosis or edema, no calf tenderness and no pedal edema Neuro: COMMON NORMALS: patient oriented x3, CN's II-XII intact bilaterally, moves all extremities and no focal motor deficits Psych: COMMON NORMALS: mental status grossly normal Data 02/19/23 14:40 02/19/23 14:40 A&P Assessment and plan (1) Hypercalcemia: (2) Recurrent non-small cell lung cancer: (3) Iron deficiency anemia: (4) Low back pain of over 3 months duration: Plan Hypercalcemia of malignancy -Likely related to non-small cell lung cancer, ? Is on alendronate as outpatient, does have chronic hyponatremia, currently acute on chronic hyponatremia ? Calcium has improved with IV fluids, ? Continue IV fluids ? Recheck ionized calcium, PTH, vitamin D, ? Recheck CMP at 9 PM, ? Telemetry monitoring ? Currently patient is asymptomatic, Type 2 diabetes mellitus, low-dose sliding scale, COPD, not in exacerbation, monitor, Thrombocytopenia, monitor CAD, monitor CHF, gentle IV hydration, monitor fluid overload, Chronic pain, continue p.o. morphine Attestations Medical Necessity Statement*: Patient requires hospitalization, outpatient observation, for hypercalcemia of malignancy Diagnoses Hypercalcemia E83.52 Recurrent non-small cell lung cancer C34.90 Iron deficiency anemia D50.9 Low back pain of over 3 months duration M54.5
[2023-02-19 16:52] LABS: Ionized Calcium 1.6 mmol/L (1.1-1.4)
[2023-02-19 17:23] LABS: Alanine Aminotransferase 12 U/L (0-41); Albumin Level 3.1 g/dL (3.5-5.2); Alkaline Phosphatase 75 U/L (40-130); Anion Gap 9.9 (5-19); Aspartate Amino Transferase 9 U/L (0-40); Blood Urea Nitrogen 18 mg/dL (8-23); Calcium 11.3 mg/dL (8.5-10.5); Carbon Dioxide 31 mmol/L (22-29); Chloride 104 mmol/L (98-107); Glucose 107 mg/dL (65-115); Osmolality Calculated 292 mOsm/kg (285-295); Potassium 4.9 mmol/L (3.5-5.1); Sodium 140 mmol/L (136-145); Total Bilirubin 0.2 mg/dL (0.15-1.2); Total Protein 6.1 g/dL (6.6-8.7)
[2023-02-19 17:48] LABS: Calcium 11.1 mg/dL (8.5-10.5)
[2023-02-19 17:55] LABS: Parathyroid Hormone 6.9 pg/mL (15-65)
[2023-02-19 18:03] LABS: 25 Hydroxy Vitamin D 35 ng/mL (30-100)
[2023-02-19 19:16] LABS: Thyroid Stimulating Hormone 0.79 uIU/mL (0.27-4.20)
[2023-02-19 20:41] LABS: Glucose Point of Care 202 mg/dL (70-110)
[2023-02-19] MEDS: pantoprazole 40 mg SDV IVP (21:12)
[2023-02-19] MEDS: finasteride 5 mg Tablet PO (21:12)
[2023-02-19] MEDS: sodium chloride 0.9% 1,000 ML 75 ML IV (21:12)
[2023-02-19] MEDS: atorvastatin 40 mg Tablet 80 MG PO (21:12)
[2023-02-19] MEDS: tamsulosin 0.4 mg Capsule PO (21:12)
[2023-02-19] MEDS: morphine ER (12 HR) 30 mg tablet PO (22:48)
[2023-02-20] VITALS (14 sets, daily range): BP systolic 144–168; BP diastolic 61–78; PULSE 51–97; RESP 16–18; TEMP 36.4–36.8; O2SAT 92–98
[2023-02-20 04:48] LABS: Ionized Calcium 1.6 mmol/L (1.1-1.4)
[2023-02-20 04:50] LABS: Basophils % 0.3 %; Eosinophils # 0.4 10^3/uL (0.0-0.8); Eosinophils % 3.7 %; Hematocrit 35.6 % (37-53); Lymphocytes # 1.1 10^3/uL (0.8-4.8); Lymphocytes % 10.7 %; Mean Corpuscular HGB Conc 30.6 g/dL (30-55); Mean Corpuscular Hemoglobin 27.6 pg (27-33); Mean Corpuscular Volume 90.1 fl (82-101); Mean Platelet Volume 9.7 fL (7.4-10.4); Monocytes # 0.7 10^3/uL (0.2-0.9); Neutrophils # 8.13 10^3/uL (1.8-7.7); Neutrophils % 78.1 %; Nucleated Red Blood Cells % 0 %; Platelet Count 184 10^3/cmm (157-399); Red Blood Count 3.95 10^6/uL (3.85-5.65); Red Cell Distribution Width 13.2 % (12.1-15.1)
[2023-02-20 05:25] LABS: Alanine Aminotransferase 18 U/L (0-41); Albumin Level 3.4 g/dL (3.5-5.2); Alkaline Phosphatase 90 U/L (40-130); Anion Gap 10.9 (5-19); Aspartate Amino Transferase 16 U/L (0-40); Blood Urea Nitrogen 14 mg/dL (8-23); Calcium 11.4 mg/dL (8.5-10.5); Carbon Dioxide 30 mmol/L (22-29); Chloride 106 mmol/L (98-107); Globulin 2.8 g/dL (1.3-4.6); Glucose 178 mg/dL (65-115); Magnesium 1.7 mg/dL (1.7-2.3); Osmolality Calculated 299 mOsm/kg (285-295); Phosphorus 2.3 mg/dL (2.5-4.5); Potassium 4.9 mmol/L (3.5-5.1); Sodium 142 mmol/L (136-145); Total Bilirubin 0.3 mg/dL (0.15-1.2); Total Protein 6.2 g/dL (6.6-8.7)
[2023-02-20 06:34] LABS: Glucose Point of Care 155 mg/dL (70-110)
[2023-02-20] MEDS: metoprolol succinate ER (24 HR) 50 mg Tablet PO (06:42)
[2023-02-20] MEDS: escitalopram 10 mg Tablet 20 MG PO (06:42)
[2023-02-20] MEDS: clopidogrel 75 mg Tablet PO (06:42)
[2023-02-20] MEDS: losartan 50 mg Tablet 25 MG PO (06:42)
[2023-02-20] MEDS: aspirin 81 mg EC Tablet PO (06:42)
[2023-02-20] MEDS: morphine ER (12 HR) 30 mg tablet PO ×3 (06:46→23:39)
[2023-02-20] MEDS: budesonide 0.5 mg/2 mL Neb INHALATION ×2 (07:25→19:38)
[2023-02-20] MEDS: insulin lispro 100 unit/1 mL SUBCUT ×2 (08:43→18:12)
--- NOTE | 2023-02-20 10:37 | PC.CHAP ---
Pastoral Care Encounter/Spiritual Assessment Type of Contact [] Declined dope firer visit [] Patient/Family/Request visit [] Outpatient visit [] Follow-up visit [] Physician referral [] Code/Alert [x] Routine visit [] Staff referral [] Actively dying [] Patient sleeping [] Family support [] [] Out of room [] Palliative care [] [] Receiving care in room [] Pre-surgical visit [] Trauma [] Long length of stay [] ICU visit [] Other: Relational/Emotional Strength [] Patient feels connected with others/family/visitors/staff [] Distress [] Loneliness/isolation [] Abandonment Spirituality of Patient [] Person of Rae [] Attends Faith of their Rae [x] Believes in Prayer [] Reads Bible or Zoroastrianism materials [] There are Spiritual issues to be addressed Field Account Director Interventions [x] Prayer [x] Active listening [] Non-anxious presence [] Spiritual/emotional support [] Crisis/trauma care [] Spiritual counseling [] Bereavement support [] Provided bereavement packet [] Provided Bible/devotional materials [] Provided toy/stuffed animal, coloring book to patient or family member [] Provided Communion [] Anointing/[place] [] Salvation [] Completed spiritual assessment [] Other: Impact on Illness or Injury [] Angry [] Fearful [] Anxious [] Often cries [] Exhaustion [] Unable to work [] Unable to attend rastafari [] Unable to walk/stand [] Unable to read [] Unable to drive [] Unable to eat/drink [] Unable to sleep [] Unable to be with family [] Patient intubated [] Other: Summary Time spent with patient 15 min
--- NOTE | 2023-02-20 10:40 | PC.CHAP ---
Pastoral Care Encounter/Spiritual Assessment Type of Contact [] Declined office equipment technician visit [] Patient/Family/Request visit [] Outpatient visit [] Follow-up visit [] Physician referral [] Code/Alert [x] Routine visit [] Staff referral [] Actively dying [] Patient sleeping [] Family support [] [] Out of room [] Palliative care [] [] Receiving care in room [] Pre-surgical visit [] Trauma [] Long length of stay [] ICU visit [] Other: Relational/Emotional Strength [] Patient feels connected with others/family/visitors/staff [] Distress [] Loneliness/isolation [] Abandonment Spirituality of Patient [] Person of Rae [] Attends Adventism of their Rae [] Believes in Prayer [] Reads Bible or Sikh materials [] There are Spiritual issues to be addressed Cattle Knocker Interventions [x] Prayer [x] Active listening [] Non-anxious presence [] Spiritual/emotional support [] Crisis/trauma care [] Spiritual counseling [] Bereavement support [] Provided bereavement packet [] Provided Bible/devotional materials [] Provided toy/stuffed animal, coloring book to patient or family member [] Provided Communion [] Anointing/[place] [] Salvation [] Completed spiritual assessment [] Other: Impact on Illness or Injury [] Angry [] Fearful [] Anxious [] Often cries [] Exhaustion [] Unable to work [] Unable to attend catholic [] Unable to walk/stand [] Unable to read [] Unable to drive [] Unable to eat/drink [] Unable to sleep [] Unable to be with family [] Patient intubated [] Other: Summary Time spent with patient 15 min
[2023-02-20] MEDS: zoledronic acid 4 MG in sodium chloride 0.9% (100 ml) 100 ML 420 MG IV (10:53)
[2023-02-20] MEDS: sodium chloride 0.9% 1,000 ML 75 ML IV (10:53)
[2023-02-20 11:35] LABS: Glucose Point of Care 124 mg/dL (70-110)
[2023-02-20] MEDS: ipratropium-albuterol 3 mL Neb INHALATION (11:36)
[2023-02-20 11:57] LABS: Adenovirus Not Detected (NOT DETECT); Chlamydia Pneumoniae Not Detected (NOT DETECT); Coronavirus 229E,HKU1,NL63,OC4 Not Detected (NOT DETECT); Human Metapneumovirus Not Detected (NOT DETECT); Human Rhinovirus/Enterovirus Not Detected (NOT DETECT); Influenza A Not Detected (NOT DETECT); Influenza A H1 Not Detected (NOT DETECT); Influenza A H1-2009 Not Detected (NOT DETECT); Influenza A H3 Not Detected (NOT DETECT); Influenza B Not Detected (NOT DETECT); Mycoplasma Pneumoniae Not Detected (NOT DETECT); Parainfluenza Virus Type 1 Not Detected (NOT DETECT); Parainfluenza Virus Type 2 Not Detected (NOT DETECT); Parainfluenza Virus Type 3 Not Detected (NOT DETECT); Parainfluenza Virus Type 4 Not Detected (NOT DETECT); Respiratory Syncytial Virus A Not Detected (NOT DETECT); Respiratory Syncytial Virus B Not Detected (NOT DETECT); SARS-COV-2 Not Detected (NOT DETECT)
[2023-02-20 12:01] LABS: Ionized Calcium 1.5 mmol/L (1.1-1.4)
[2023-02-20] MEDS: BuSPIRONE 10 mg Tablet 7.5 MG PO ×2 (12:19→18:14)
[2023-02-20 12:29] LABS: Calcium 11.1 mg/dL (8.5-10.5)
--- NOTE | 2023-02-20 12:57 | PC.SOCIAL ---
IMM Update pg 2 of IMM not updated @ this time as patient is currently in observation status.
[2023-02-20 16:21] LABS: Glucose Point of Care 224 mg/dL (70-110)
--- NOTE | 2023-02-20 16:34 | PM.PN ---
Subjective Subjective: Patient was seen this morning, he is alert oriented x3, follows all commands, we discussed his persistent hypercalcemia, discussed trying Zometa, he is agreeable, continue IV fluids, ? Patient was examined later on in the morning, he tells me that with nursing staff present at bedside that he does not want to have any more treatment for his cancer, he just wants to be comfortable and wants to go back to the skilled nursing on hospice, ? I had a detailed discussion with him about his non-small cell lung cancer, he is currently as per oncologist documentation on immunotherapy, stopping immunotherapy could mean progression of his non-small cell lung cancer morbidity and mortality associated, ? Continuing immunotherapy could add time to his life, increasing quality of life, decrease progression of the disease ? However stopping immunotherapy could cause the cancer to progress quickly, increased risk of complications, morbidity and mortality associated, and decrease the length of his life -Him going on hospice means of stopping all chemotherapy immunotherapy, easing his pain easing suffering allowing him to pass out comfortably, -After discussing with him the risk and benefits of hospice, he voiced understanding, all consents are, great to proceed Vitals/I&O/Wt Last Vital Signs Temp 97.6 F 02/20/23 16:00 Pulse 53 L 02/20/23 16:00 Resp 17 02/20/23 16:00 BP 168/73 02/20/23 16:00 Pulse Ox 98 02/20/23 16:00 O2 Del Method Nasal Cannula 02/20/23 16:00 O2 Flow Rate 3 02/20/23 11:38 FiO2 2 02/20/23 01:36 02/20/23 02/20/23 02/20/23 06:59 14:59 22:59 Intake Total 1945 / 1945 Output Total 0 / 200 750 / 750 Balance 0 / 800 1195 / 1195 Weight last 48 hrs Weight 77.111 kg Physical Exam Const: COMMON NORMALS: no acute distress and patient oriented x3 Resp: COMMON NORMALS: normal respiratory effort, No retractions, No use of accessory muscles and clear to auscultation bilaterally AUSCULTATION: clear to auscultation bilaterally Cardio: COMMON NORMALS: regular rate, regular rhythm, S1 normal heart sound present and S2 normal heart sound present RATE: regular rate RHYTHM: regular rhythm HEART SOUNDS: S1 normal heart sound present and S2 normal heart sound present GI: COMMON NORMALS: Normal to inspection, nondistended, normoactive bowel sounds present and non-tender Extremity: COMMON NORMALS: no pedal edema Neuro: COMMON NORMALS: patient oriented x3 Data 02/20/23 04:43 02/20/23 04:43 A&P Assessment and plan (1) Hypercalcemia: (2) Recurrent non-small cell lung cancer: (3) Iron deficiency anemia: (4) Low back pain of over 3 months duration: Plan Hypercalcemia of malignancy -Likely related to non-small cell lung cancer, ? Is on alendronate as outpatient, does have chronic hyponatremia, currently acute on chronic hyponatremia ? Calcium 11.4 ? Continue IV fluids ? Recheck ionized calcium, PTH, vitamin D, ? We will start Zometa 1 dose 4 mg IV, monitor calcium ? Telemetry monitoring ? Currently patient is asymptomatic, Non-small cell lung cancer ? Right lower lobe, very early stage, diagnosed in 2014 ? Underwent right lower lobe lobectomy, in 2014, -PET in November 2022 shows multistation peter disease along with left lower lobe lung mass.? 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 Last staging was 3B [id number] -Patient as per documentation patient has declined radiation therapy, he had a PET avid GI lesion which she was receiving colonoscopy, -He did not wish to undergo systemic palliative therapy with chemotherapy ? Was agreeable to undergo immunotherapy, received Keytruda 01/22/2023, ? After discussing the risk and benefits of continued medical therapy versus hospice care, he voiced understanding, all consents are, agreed to proceed with hospice care, spoke to hospice nurse, spoke to Dr. Cox Type 2 diabetes mellitus, low-dose sliding scale, COPD, not in exacerbation, monitor, Thrombocytopenia, monitor CAD, monitor CHF, gentle IV hydration, monitor fluid overload, Chronic pain, continue p.o. morphine remains 11.1 Attestations Medical Necessity Statement*: Patient requires hospitalization for hypercalcemia of malignancy, non-small cell lung cancer, proceeding with hospice Diagnoses Hypercalcemia E83.52 Recurrent non-small cell lung cancer C34.90 Iron deficiency anemia D50.9 Low back pain of over 3 months duration M54.5
[2023-02-20 18:29] LABS: Ionized Calcium 1.5 mmol/L (1.1-1.4)
[2023-02-20 20:54] LABS: Glucose Point of Care 177 mg/dL (70-110)
[2023-02-20] MEDS: atorvastatin 40 mg Tablet 80 MG PO (21:14)
[2023-02-20] MEDS: tamsulosin 0.4 mg Capsule PO (21:14)
[2023-02-20] MEDS: finasteride 5 mg Tablet PO (21:15)
[2023-02-20] MEDS: acetaminophen 325 mg Tablet 650 MG PO (21:22)
[2023-02-21] VITALS (11 sets, daily range): BP systolic 138–165; BP diastolic 65–72; PULSE 49–58; RESP 16–18; TEMP 36.4–36.7; O2SAT 94–97
[2023-02-21 04:55] LABS: Ionized Calcium 1.5 mmol/L (1.1-1.4)
[2023-02-21 04:58] LABS: Basophils % 0.3 %; Eosinophils # 0.3 10^3/uL (0.0-0.8); Eosinophils % 4.5 %; Hematocrit 33.3 % (37-53); Lymphocytes # 0.8 10^3/uL (0.8-4.8); Lymphocytes % 13.4 %; Mean Corpuscular HGB Conc 30.9 g/dL (30-55); Mean Corpuscular Hemoglobin 27.1 pg (27-33); Mean Corpuscular Volume 87.6 fl (82-101); Mean Platelet Volume 9.7 fL (7.4-10.4); Monocytes # 0.6 10^3/uL (0.2-0.9); Monocytes % 9.7 %; Neutrophils # 4.45 10^3/uL (1.8-7.7); Neutrophils % 71.8 %; Nucleated Red Blood Cells % 0 %; Platelet Count 158 10^3/cmm (157-399); Red Cell Distribution Width 13.2 % (12.1-15.1)
[2023-02-21 05:28] LABS: Alanine Aminotransferase 13 U/L (0-41); Albumin Level 3.2 g/dL (3.5-5.2); Alkaline Phosphatase 87 U/L (40-130); Anion Gap 9.3 (5-19); Aspartate Amino Transferase 10 U/L (0-40); Blood Urea Nitrogen 11 mg/dL (8-23); Calcium 11.7 mg/dL (8.5-10.5); Carbon Dioxide 29 mmol/L (22-29); Chloride 104 mmol/L (98-107); Globulin 3.1 g/dL (1.3-4.6); Glucose 134 mg/dL (65-115); Magnesium 1.7 mg/dL (1.7-2.3); Osmolality Calculated 287 mOsm/kg (285-295); Phosphorus 1.9 mg/dL (2.5-4.5); Potassium 4.3 mmol/L (3.5-5.1); Sodium 138 mmol/L (136-145); Total Bilirubin 0.4 mg/dL (0.15-1.2); Total Protein 6.3 g/dL (6.6-8.7)
[2023-02-21] MEDS: morphine ER (12 HR) 30 mg tablet PO ×2 (06:07→17:00)
[2023-02-21] MEDS: losartan 50 mg Tablet 25 MG PO (06:08)
[2023-02-21] MEDS: escitalopram 10 mg Tablet 20 MG PO (06:08)
[2023-02-21] MEDS: clopidogrel 75 mg Tablet PO (06:09)
[2023-02-21] MEDS: aspirin 81 mg EC Tablet PO (06:09)
[2023-02-21] MEDS: metoprolol succinate ER (24 HR) 50 mg Tablet PO (06:09)
[2023-02-21 06:45] LABS: Glucose Point of Care 151 mg/dL (70-110)
[2023-02-21] MEDS: budesonide 0.5 mg/2 mL Neb INHALATION (08:15)
[2023-02-21] MEDS: BuSPIRONE 10 mg Tablet 7.5 MG PO (08:50)
[2023-02-21] MEDS: insulin lispro 100 unit/1 mL SUBCUT ×2 (08:50→12:41)
[2023-02-21 11:32] LABS: Glucose Point of Care 190 mg/dL (70-110)
--- NOTE | 2023-02-21 11:57 | PM.DCS ---
Discharge Providers Date of Admission: 02/19/23 17:30 Date of Discharge: February 21, 2023 Attending Provider at Admission: Celso Marquis MD Attending Provider at Discharge: Celso Marquis MD Primary Care Provider: Daniel Leyva DO Diagnoses at Discharge Discharge Diagnosis (1) Hypercalcemia: Status: Acute (2) Recurrent non-small cell lung cancer: Status: Acute (3) Iron deficiency anemia: Status: Acute (4) Low back pain of over 3 months duration: Status: Chronic Reason for Visit Reason for Visit: Calcium High Hospital Course Hospital Course Moses Cardoza is a 72 year old male with a past medical history of non small cell lung cancer, on Keytruda, history of PE, CAD, CHF, type 2 diabetes mellitus, chronic back pain, chronic morphine, [facility] resident, on 3 L nasal cannula, who presents to [facility] from oncologist office due to concerns for hypercalcemia.? Patient was recently admitted to [facility] for multifocal pneumonia, received IV antibiotics, steroids, discharged to [facility], patient followed up with oncology, his next dose of chemotherapy has been held due to his recent infection, he denies any lightheadedness, dizziness, no nausea, vomiting does have a poor appetite, no recent weight loss, denies any chest pain, no palpitations, no dysuria, hematuria, does report diffuse joint pains, which is chronic for him, he is chronically on morphine, denies any kidney stones, Patient was admitted to [facility] for hypercalcemia of malignancy, managed with IV fluids, due to persistent hypercalcemia, received 1 dose of Zometa, he remains asymptomatic, will be discharged to [facility] on hospice, his last calcium level was 11.7, patient refused any further blood draws so I cannot see if his calcium levels were improving or not before he was discharged, understands the morbidity and mortality associate with hypercalcemia, voiced understanding, all questions answered, discharge instructions to drink plenty of electrolyte balanced fluids For his non-small cell lung cancer Non-small cell lung cancer ? Right lower lobe, very early stage, diagnosed in 2014 ? Underwent right lower lobe lobectomy, in 2014, -PET in November 2022 shows multistation peter disease along with left lower lobe lung mass.? 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 Last staging was 3B [id number] -Patient as per documentation patient has declined radiation therapy, he had a PET avid GI lesion which she was receiving colonoscopy, -He did not wish to undergo systemic palliative therapy with chemotherapy ? Was agreeable to undergo immunotherapy, received Keytruda 01/22/2023, -During inpatient, patient voiced his wishes to not receive any more treatment for his cancer, he want to be discharged to [facility] hosp[facility], ? I discussed in detail with patient what hospice entails, stopping treatment for his cancer, he understands that stopping treatment for his cancer means that the cancer will progress, he understands morbidity and mortality, he just does not want to be in pain anymore he tells me, he wants us to treat his pain and and treat suffering he does not want any more treatment for his cancer anymore, he wants to stop the Keytruda, he does not want any chemotherapy for his cancer, he does not want any radiation therapy for his cancer, he does not want any surgery for his cancer, and I have confirmed with his with the patient, multiple times, and with nursing staff at bedside ? After discussing the risk and benefits of continued medical therapy versus hospice care, he voiced understanding, all consents are, agreed to proceed with hospice care, spoke to hospice nurse, spoke to Dr. Cox Physical Exam Const: COMMON NORMALS: no acute distress and patient oriented x3 Resp: COMMON NORMALS: normal respiratory effort, No retractions, No use of accessory muscles and clear to auscultation bilaterally AUSCULTATION: clear to auscultation bilaterally Cardio: COMMON NORMALS: regular rate, regular rhythm, S1 normal heart sound present and S2 normal heart sound present RATE: regular rate RHYTHM: regular rhythm HEART SOUNDS: S1 normal heart sound present and S2 normal heart sound present GI: COMMON NORMALS: Normal to inspection, nondistended, normoactive bowel sounds present and non-tender Extremity: COMMON NORMALS: no pedal edema Neuro: COMMON NORMALS: patient oriented x3 Psych: COMMON NORMALS: mental status grossly normal Discharge Data Studies Completed and Pending Pending at discharge Category Date Time Status BMP [Basic Metabolic Panel] Routine Lab 02/21/23 12:00 Ordered Complete Blood Count w/Auto AM LABS Lab 02/22/23 04:00 Ordered Comprehensive Metabolic Panel AM LABS Lab 02/22/23 04:00 Ordered Ionized Calcium AM LABS Lab 02/22/23 04:00 Ordered Magnesium AM LABS Lab 02/22/23 04:00 Ordered Phosphorus AM LABS Lab 02/22/23 04:00 Ordered Urinalysis Routine Lab 02/19/23 18:29 Uncollected Laboratory Results WBC 6.20 10^3/uL (3.29-11.43) 02/21/23 04:46 RBC 3.80 10^6/uL (3.85-5.65) L 02/21/23 04:46 Hgb 10.30 g/dL (11.27-16.99) L 02/21/23 04:46 Hct 33.3 % (37-53) L 02/21/23 04:46 MCV 87.6 fl (82-101) 02/21/23 04:46 MCH 27.1 pg (27-33) 02/21/23 04:46 MCHC 30.9 g/dL (30-55) 02/21/23 04:46 RDW 13.2 % (12.1-15.1) 02/21/23 04:46 Plt Count 158 10^3/cmm (157-399) 02/21/23 04:46 MPV 9.7 fL (7.4-10.4) 02/21/23 04:46 Neut % (Auto) 71.8 % 02/21/23 04:46 Lymph % (Auto) 13.4 % 02/21/23 04:46 Hudson % (Auto) 9.7 % 02/21/23 04:46 Eos % (Auto) 4.5 % 02/21/23 04:46 Baso % (Auto) 0.3 % 02/21/23 04:46 Neut # (Auto) 4.45 10^3/uL (1.8-7.7) 02/21/23 04:46 Lymph # (Auto) 0.8 10^3/uL (0.8-4.8) 02/21/23 04:46 Hudson # (Auto) 0.6 10^3/uL (0.2-0.9) 02/21/23 04:46 Eos # (Auto) 0.3 10^3/uL (0.0-0.8) 02/21/23 04:46 Baso # (Auto) 0.0 10^3/uL (0.0-0.1) 02/21/23 04:46 Nucleated RBC % (auto) 0 % 02/21/23 04:46 Nucleated RBCs # 0.0 /100WBC 02/21/23 04:46 Sodium 138 mmol/L (136-145) 02/21/23 04:46 Potassium 4.3 mmol/L (3.5-5.1) 02/21/23 04:46 Chloride 104 mmol/L (98-107) 02/21/23 04:46 Carbon Dioxide 29 mmol/L (22-29) 02/21/23 04:46 Anion Gap 9.3 (5-19) 02/21/23 04:46 BUN 11 mg/dL (8-23) 02/21/23 04:46 Creatinine 0.6 mg/dL (0.7-1.2) L 02/21/23 04:46 GFR Calculation Not Reportable 02/21/23 04:46 Glucose 134 mg/dL (65-115) H 02/21/23 04:46 POC Glucose 190 mg/dL (70-110) H 02/21/23 11:29 Calculated Osmolality 287 mOsm/kg (285-295) 02/21/23 04:46 Calcium 11.7 mg/dL (8.5-10.5) H 02/21/23 04:46 Ionized Calcium Melissa 1.5 mmol/L (1.1-1.4) H 02/21/23 04:46 Phosphorus 1.9 mg/dL (2.5-4.5) L 02/21/23 04:46 Magnesium 1.7 mg/dL (1.7-2.3) 02/21/23 04:46 Total Bilirubin 0.4 mg/dL (0.15-1.2) 02/21/23 04:46 AST 10 U/L (0-40) 02/21/23 04:46 ALT 13 U/L (0-41) 02/21/23 04:46 Alkaline Phosphatase 87 U/L (40-130) 02/21/23 04:46 Total Protein 6.3 g/dL (6.6-8.7) L 02/21/23 04:46 Albumin 3.2 g/dL (3.5-5.2) L 02/21/23 04:46 Globulin 3.1 g/dL (1.3-4.6) 02/21/23 04:46 25-OH Vitamin D Total 35 ng/mL (30-100) 02/19/23 16:43 TSH 0.79 uIU/mL (0.27-4.20) 02/19/23 16:43 PTH Intact 6.9 pg/mL (15-65) L 02/19/23 16:43 Calcium (PTH Intact) 11.1 mg/dL (8.5-10.5) H 02/19/23 16:43 Coronavirus 229E (PCR) Not detected (NOT DETECT) 02/20/23 10:08 SARS-CoV-2 (PCR) Not detected (NOT DETECT) 02/20/23 10:08 Vitals Last Vital Signs Temp 98.1 F 02/21/23 04:00 Pulse 58 L 02/21/23 08:18 Resp 16 02/21/23 08:15 BP 165/72 02/21/23 06:08 Pulse Ox 94 02/21/23 08:15 O2 Del Method Nasal Cannula 02/21/23 08:15 O2 Flow Rate 3 02/21/23 08:15 FiO2 2 02/20/23 01:36 Discharge Plan Discharge Patient Disposition: Hospice - Medical Facility Condition: Stable Prescriptions: Continued polyethylene glycol 3350 17 gram powder in packet 17 g PO EVERY OTHER DAY ferrous sulfate 325 mg (65 mg iron) tablet 325 mg PO EVERY OTHER DAY finasteride 5 mg tablet 5 mg PO BEDTIME buspirone 5 mg tablet 7.5 mg PO BID alendronate 70 mg Tablet 70 mg PO Q7D Rx Instructions: ON SATURDAY cholecalciferol (vitamin D3) [Vitamin D3] 25 mcg (1,000 unit) Tablet 25 mcg PO DAILY@07 ipratropium-albuterol 0.5 mg-3 mg(2.5 mg base)/3 mL Solution For Nebulization 3 ml INHALATION TID albuterol sulfate 2.5 mg /3 mL (0.083 %) solution for nebulization 2.5 mg inhalation Q4H PRN (Reason: Shortness Of Breath) morphine 30 mg tablet extended release 30 mg PO TID@,, guaifenesin 100 mg/5 mL Liquid 100 mg PO Q4H PRN (Reason: Cough) budesonide 0.5 mg/2 mL Suspension For Nebulization 0.5 mg inhalation BID nitroglycerin 0.4 mg tablet, sublingual 0.4 mg sublingual Q5M PRN (Reason: chest pain) Qty: 30 6RF Rx Instructions: do not exceed 3 doses per episode losartan 25 mg tablet 25 mg PO DAILY@07 escitalopram oxalate 20 mg Tablet 20 mg PO DAILY@07 magnesium hydroxide [Milk of Magnesia] 400 mg/5 mL Suspension 30 ml PO Q72H PRN (Reason: if no bm in 3 days) Rx Instructions: do not give to renal patients-go to dulcolax orders bisacodyl [Dulcolax (bisacodyl)] 5 mg tablet,delayed release (DR/EC) 10 mg PO DAILY PRN (Reason: Constipation) Rx Instructions: if no results from mom potassium chloride 10 mEq tablet extended release 10 meq PO DAILY@07 tamsulosin 0.4 mg capsule 0.4 mg PO BEDTIME bisacodyl [Dulcolax (bisacodyl)] 10 mg Suppository 10 mg VT DAILY PRN (Reason: Constipation) Rx Instructions: if no results from mom omeprazole 20 mg Capsule,Delayed Release(Dr/Ec) 20 mg PO DAILY@07 furosemide [Lasix] 20 mg Tablet 20 mg PO DAILY@07 rosuvastatin 20 mg tablet 20 mg PO BEDTIME Brooten Cough Drops 5.8 mg Lozenge 5.8 mg MUCOUS MEMBRANE Q2H PRN (Reason: Cough) Artificial Tears (PF) 0.1-0.3 % Dropperette 1 drp ophthalmic (eye) QID Rx Instructions: each eye metoprolol succinate 50 mg tablet extended release 24 hr 50 mg PO DAILY@07 Trelegy Ellipta 100-62.5-25 mcg blister with device 1 inh inhalation DAILY@07 Anbesol (benzocaine) 10 % Gel 1 applic MUCOUS MEMBRANE TID PRN (Reason: Mouth Pain) Rx Instructions: apply to sore in mouth acetaminophen 325 mg Tablet 650 mg PO Q6H PRN (Reason: Pain) Fleet Enema 19-7 gram/118 mL Enema 118 ml VT DAILY PRN (Reason: Constipation) Rx Instructions: give fleets if no results from mom and dulcolax albuterol sulfate 90 mcg/actuation HFA aerosol inhaler 2 puff INHALATION Q6H PRN (Reason: Dyspnea) clopidogrel 75 mg tablet 75 mg PO DAILY@07 aspirin 81 mg tablet,delayed release (DR/EC) 81 mg PO DAILY@07 Calamine Plus (pramox-calamin) 1-8 % lotion 1 applic topical TID PRN (Reason: itching) Humalog KwikPen Insulin 100 unit/mL insulin pen See Rx Instructions .ROUTE .COMPLEX Rx Instructions: sliding scale subcutaneously before meals and at bedtime 100-200=2 units 201-250=4 units 251-300=6 units 301-350=8 units if bs is greater than 350 give 10 units call pcp is bs is <60 and >400 x3 or symptomatic Changed Tresiba FlexTouch U-100 100 unit/mL (3 mL) Insulin Pen 5 unit SUBCUT BEDTIME Qty: 15 0RF Discharge Orders: Discharge Order (Routine); Ordered 02/21/23 Ordered By: Celso Marquis Referrals: [facility] [Outside] [facility] ([facility]) [Outside] Datar,Sameer Moreau MD [Physician] - 03/12/23 2:00 pm Daniel Leyva DO [Primary Care Provider] - 1-3 days Discharge Diet: Regular Discharge Activity: Resume usual activity Patient Instructions: Confusion, Opioid Safety Discharge Attestations Time Spent in Discharge Care*: greater than 30 min Quality Metrics Clinical Quality Measures [ No reported AMI, CVA or VTE this stay] Coding Level of Care Code 44983 Total time (in minutes) for Discharge: 45 Diagnoses Hypercalcemia E83.52 Recurrent non-small cell lung cancer C34.90 Iron deficiency anemia D50.9 Low back pain of over 3 months duration M54.5
[2023-02-21 13:31] LABS: Anion Gap 9.4 (5-19); Blood Urea Nitrogen 12 mg/dL (8-23); Carbon Dioxide 30 mmol/L (22-29); Chloride 102 mmol/L (98-107); Glucose 173 mg/dL (65-115); Osmolality Calculated 288 mOsm/kg (285-295); Potassium 4.4 mmol/L (3.5-5.1); Sodium 137 mmol/L (136-145)
--- NOTE | 2023-02-21 15:59 | PC.NURSE ---
Called report to Cary at [facility].
[2023-02-21] MEDS: ipratropium-albuterol 3 mL Neb INHALATION (16:19)
[2023-02-21 17:33] LABS: Glucose Point of Care 257 mg/dL (70-110)
--- NOTE | 2023-02-21 18:57 | PC.NURSE ---
Discharge Note Patient discharged to [facility] via ems accompanied by ambulance personelle. Discharge instructions reviewed with patient and/or outside sales representative. Mobile pharmacy medications and/or prescriptions provided. Belongings/home medications returned.
== END 2023-02-21 18:59 | disposition hospice, inpatient (51) ==
LOC: ER 16:30 → MEDSURG 17:31
PROVIDERS: Admitting Provider Family Medicine; Emergency Provider Emergency Medicine; PCP Internal Medicine; Visit Provider Family Medicine
DX: E83.52 Hypercalcemia (principal); C34.90 Malignant neoplasm of unspecified part of unspecified bronchus or lung; D50.9 Iron deficiency anemia, unspecified; M54.50 Low back pain, unspecified; Z86.711 Personal history of pulmonary embolism; I25.10 Atherosclerotic heart disease of native coronary artery without angina pectoris; E11.9 Type 2 diabetes mellitus without complications; G89.29 Other chronic pain; Z99.81 Dependence on supplemental oxygen; D69.6 Thrombocytopenia, unspecified; I50.40 Unspecified combined systolic (congestive) and diastolic (congestive) heart failure; J44.9 Chronic obstructive pulmonary disease, unspecified; C34.32 Malignant neoplasm of lower lobe, left bronchus or lung; Z87.891 Personal history of nicotine dependence; Z79.899 Other long term (current) drug therapy; Z53.9 Procedure and treatment not carried out, unspecified reason
CPT/HCPCS: 36415; 36416; 80048; 80053; 82306; 82310; 82330; 82962; 83735; 83970; 84100; 84443; 85025; 87635; 94640; 94664; 96365; 96372; 96375; 96413; 99214; 99285; C9113; G0378; J1815; J3489; J7030; J7050; J7626; J9271

== ENCOUNTER 2023-02-27 15:56 | Inpatient (IN) | payer MEDICARE, MEDICAID, SELFPAY ==
[2023-02-27 15:58] VITALS: BP 103/64; PULSE 82; RESP 17; TEMP 36.5; O2SAT 95; BMI 24.0
--- NOTE | 2023-02-27 16:05 | XRR_ITS ---
PROCEDURE INFORMATION: Exam: XR Right Hip Exam date and time: 02/27/2023 5:17 PM Age: 73 years old Clinical indication: Injury or trauma; Fall; Fracture of pelvis & hip; Right; Traumatic fracture; Neck of femur; Closed fracture; Additional info: Fall pain TECHNIQUE: Imaging protocol: Radiologic exam of the right hip. Views: 1 view hip with pelvis when performed. COMPARISON: [place] bone scan whole body* [id number] 07/02/2017 7:52 AM FINDINGS: Bones/joints: Displaced right femur intertrochanteric comminuted fracture with varus deformity. Hip remains located. No additional pelvic fractures appreciated. Soft tissues: Surrounding soft tissue swelling. XR/XR hip RT 2-3V wo/w pel* [id number] IMPRESSION: Right femur intertrochanteric fracture.
--- NOTE | 2023-02-27 16:05 | XRR_ITS ---
PROCEDURE INFORMATION: Exam: XR Right Shoulder Exam date and time: 02/27/2023 5:15 PM Age: 73 years old Clinical indication: Injury or trauma; Fall; Blunt trauma (contusions or hematomas); Shoulder; Right; Additional info: Fall pain TECHNIQUE: Imaging protocol: Radiologic exam of the right shoulder. Views: 2 or more views. COMPARISON: [place] bone scan whole body* [id number] 07/02/2017 7:52 AM FINDINGS: Bones/joints: No humeral fracture or dislocation. AC joint degenerative changes. Soft tissues: No acute findings. XR/XR shoulder RT min 2V* [id number] IMPRESSION: Degenerative changes without acute findings.
--- NOTE | 2023-02-27 16:06 | W.ED.FALL ---
HPI - Fall General: Chief Complaint: Fall Stated Complaint: Covid, Hip fx Time Seen by Provider: 02/27/23 15:59 History of Present Illness: patient fell the night before last and is complaining of right hip pain and right shoulder pain. Patient is also COVID-positive with a diagnosis of [id number] 13.. A large bruise noted on right shoulder region. Patient is on hospice for recurrent non-small cell lung cancer. Before fall patient was up ambulatory with a walker. 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 Hwang -[place] Hx of cholecystectomy Hx of eye surgery bilat-Dr. Navarrete did right and Dr. Perez in [place] Hx of kyphoplasty 07/05/[address] Powell Status post colonoscopy (05/11/20) normal Family History Brother Cancer Diabetes Heart disease Social History Smoking and tobacco/nicotine status: former use of tobacco/nicotine (smoked x 40 years) Quit status (tobacco/nicotine): has quit using Year quit tobacco: 2016 - PPD x 45 Years Former quit date comment: Started at age 17 Second hand smoke exposure: No Alcohol intake: former Year of sobriety/quit date alcohol: 2013 Former alcohol use details: beer Substance/Drug Use: never Lives independently: Yes Household members: none Marital status: service: No Current occupational status: disabled Do you think of yourself as: Straight/Heterosexual Current gender identity: Male Physical Exam Const: COMMON NORMALS: no acute distress, patient oriented x3, no limitations, alert and well nourished HENMT: COMMON NORMALS: normocephalic, atraumatic, hearing grossly normal bilaterally, external ears normal, Normal external nose present, moist oral mucous membranes and oropharynx normal HEAD & SCALP: normocephalic and atraumatic NOSE: Normal external nose present EXTERNAL EAR: Yes external ears normal Neck/C-Spine: COMMON NORMALS: no JVD Chest: COMMONS NORMALS: normal inspection of the chest and normal palpation of entire chest wall Resp: COMMON NORMALS: normal respiratory effort, No retractions, No use of accessory muscles and clear to auscultation bilaterally AUSCULTATION: clear to auscultation bilaterally Cardio: COMMON NORMALS: no JVD, regular rate, regular rhythm, S1 normal heart sound present, S2 normal heart sound present, No gallops present (Cardio), No clicks present (Cardio), No murmurs present (Cardio) and No rub (Cardio) RATE: regular rate RHYTHM: regular rhythm HEART SOUNDS: S1 normal heart sound present and S2 normal heart sound present GI: COMMON NORMALS: Normal to inspection, nondistended, normoactive bowel sounds present, Soft to palpation, non-tender, No hepatosplenomegaly present and no masses PALPATION: Yes Soft to palpation and Yes No hepatosplenomegaly present Neuro: COMMON NORMALS: patient oriented x3 SENSORIUM/ORIENTATION: Yes alert Course Vital Signs: Vital signs: Vital Signs Temperature 97.7 F 02/27/23 15:58 Pulse Rate 82 02/27/23 15:58 Respiratory Rate 17 02/27/23 15:58 Blood Pressure 103/64 02/27/23 15:58 Pulse Oximetry 95 02/27/23 15:58 Oxygen Delivery Me thod Nasal Cannula 02/27/23 15:58 Oxygen Flow Rate 3 02/27/23 15:58 MDM - Fall Medical Decision Making X-ray was taken which showed a right intertrochanteric hip fracture. Chest x-ray was negative, left hip x-ray was negative, nursing talk with the family and decided that they wanted his hip fixed due to quality of life. Dr. Duong was consulted who agreed with this. Patient will be admitted to the hospitalist and Dr. Duong will be consulted for probable repair tomorrow or the morning of the next day Dr. Colin notified and accepted patient for inpatient admission Differential Diagnosis Unlikely syncope, dislocation of shoulder region, fracture of wrist, compression fracture, concussion with loss of consciousness or concussion without loss of consciousness Medical Records I reviewed the patient's medical records. Lab Data I reviewed the patient's lab results. 02/27/23 18:39 02/27/23 18:39 Radiology Impressions Shoulder X-Ray 02/27/23 16:05 IMPRESSION: Degenerative changes without acute findings. Chest X-Ray 02/27/23 16:12 IMPRESSION: No new chest findings. Hip/Pelvis X-Ray 02/27/23 17:43 IMPRESSION: Degenerative changes without acute findings. Laboratory Results WBC 8.42 10^3/uL (3.29-11.43) 02/27/23 18:39 RBC 3.15 10^6/uL (3.85-5.65) L 02/27/23 18:39 Hgb 8.90 g/dL (11.27-16.99) L 02/27/23 18:39 Hct 27.9 % (37-53) L 02/27/23 18:39 MCV 88.6 fl (82-101) 02/27/23 18:39 MCH 28.3 pg (27-33) 02/27/23 18:39 MCHC 31.9 g/dL (30-55) 02/27/23 18:39 RDW 14.1 % (12.1-15.1) 02/27/23 18:39 Plt Count 166 10^3/cmm (157-399) 02/27/23 18:39 MPV 10.7 fL (7.4-10.4) H 02/27/23 18:39 Neut % (Auto) 85.7 % 02/27/23 18:39 Lymph % (Auto) 6.2 % 02/27/23 18:39 Irwin % (Auto) 5.8 % 02/27/23 18:39 Eos % (Auto) 1.8 % 02/27/23 18:39 Baso % (Auto) 0.1 % 02/27/23 18:39 Neut # (Auto) 7.22 10^3/uL (1.8-7.7) 02/27/23 18:39 Lymph # (Auto) 0.5 10^3/uL (0.8-4.8) L 02/27/23 18:39 Irwin # (Auto) 0.5 10^3/uL (0.2-0.9) 02/27/23 18:39 Eos # (Auto) 0.2 10^3/uL (0.0-0.8) 02/27/23 18:39 Baso # (Auto) 0.0 10^3/uL (0.0-0.1) 02/27/23 18:39 Nucleated RBC % (auto) 0 % 02/27/23 18:39 Nucleated RBCs # 0.0 /100WBC 02/27/23 18:39 PT 16.10 SECONDS (12.1-14.9) H 02/27/23 18:39 INR 1.25 (0.8-1.2) H 02/27/23 18:39 Sodium 141 mmol/L (136-145) 02/27/23 18:39 Potassium 4.4 mmol/L (3.5-5.1) 02/27/23 18:39 Chloride 105 mmol/L (98-107) 02/27/23 18:39 Carbon Dioxide 26 mmol/L (22-29) 02/27/23 18:39 Anion Gap 14.4 (5-19) 02/27/23 18:39 BUN 41 mg/dL (8-23) H 02/27/23 18:39 Creatinine 1.1 mg/dL (0.7-1.2) 02/27/23 18:39 GFR Calculation Not Reportable 02/27/23 18:39 Glucose 284 mg/dL (65-115) H 02/27/23 18:39 Calculated Osmolality 312 mOsm/kg (285-295) H 02/27/23 18:39 Calcium 10.2 mg/dL (8.5-10.5) 02/27/23 18:39 Total Bilirubin 0.8 mg/dL (0.15-1.2) 02/27/23 18:39 AST 16 U/L (0-40) 02/27/23 18:39 ALT 21 U/L (0-41) 02/27/23 18:39 Alkaline Phosphatase 95 U/L (40-130) 02/27/23 18:39 Total Protein 7.0 g/dL (6.6-8.7) 02/27/23 18:39 Albumin 3.3 g/dL (3.5-5.2) L 02/27/23 18:39 Globulin 3.7 g/dL (1.3-4.6) 02/27/23 18:39 All radiology interpretation(s) finalized by discharge EKG Data EKG 1: I personally reviewed and interpreted this EKG as follows: EKG interpretation date: 02/27/23 EKG interpretation time: 18:36 Prior EKG tracings: not available for review Interpretation: EKG showed ventricular rate 103 bpm, UT interval 117, QRS duration 98, QTc of 409, sinus tachycardia with short UT interval, nonspecific T wave abnormality Discharge Plan Discharge Patient Disposition: Admitted As Inpatient Clinical Impression: COVID-19 Closed fracture of right hip Qualifiers: Encounter type: initial encounter Qualified Code(s): S72.001A - Fracture of unspecified part of neck of right femur, initial encounter for closed fracture Lung cancer Qualifiers: Laterality: unspecified laterality Lung location: unspecified part of lung Qualified Code(s): C34.90 - Malignant neoplasm of unspecified part of unspecified bronchus or lung Condition: Stable Coding Level of Care Code ED Dredge Mechanic for Camila Ko
--- NOTE | 2023-02-27 16:12 | XRR_ITS ---
PROCEDURE INFORMATION: Exam: XR Chest Exam date and time: 02/27/2023 5:24 PM Age: 73 years old Clinical indication: Injury or trauma; Fall; Blunt trauma (contusions or hematomas) TECHNIQUE: Imaging protocol: Radiologic exam of the chest. Views: 1 view. COMPARISON: CT angio chest PE protcl [id number] 02/06/2023 1:34 AM FINDINGS: Lungs: Multifocal opacities better seen on recent prior CT. Pleural spaces: No pleural effusion. No pneumothorax. Heart/Mediastinum: Mediastinal widening likely positional. Bones/joints: No acute findings. XR/XR chest 1V portable [id number] IMPRESSION: No new chest findings.
--- NOTE | 2023-02-27 17:43 | XRR_ITS ---
PROCEDURE INFORMATION: Exam: XR Left Hip Exam date and time: 02/27/2023 5:54 PM Age: 73 years old Clinical indication: Injury or trauma; Fall; Other: Unknown TECHNIQUE: Imaging protocol: Radiologic exam of the left hip. Views: 2 or 3 views hip with pelvis when performed. COMPARISON: [place] bone scan whole body* [id number] 07/02/2017 7:52 AM FINDINGS: Bones/joints: No fracture or dislocation. [id number] degenerative changes of the left hip. Soft tissues: No acute findings. XR/XR hip LT 2-3V wo/w pel* [id number] IMPRESSION: Degenerative changes without acute findings.
--- NOTE | 2023-02-27 17:45 | PC.NURSE ---
THIS NURSE WAS NOTIFIED THAT A PERSON WAS ON THE FLOOR IN ROOM 8. THIS NURSE ENTERED THE ROOM TO FIND THE PATIENT ON THE FLOOR, LYING ON HIS LEFT SIDE. THIS NURSE ASKED THE PATIENT WHAT HAPPENED AND THE PATIENT USED INCOHERENT MUMBLING TO RESPOND. PATIENT ASSISTED BACK TO BED BY GORDY GANT, PROVIDER, AND THIS NURSE. PATIENT HAS SIGNIFICANT BRUISING TO RIGHT SIDE OF BODY FROM PREVIOUS FALL. STALIN KAMINSKI, NURSE CARING FOR PATIENT STATED THAT THESE BRUISES WERE CONSISTENT AND THE SAME ONES THAT PATIENT HAD UPON ARRIVAL. PROVIDER NOTIFIED OF HOW PATIENT WAS FOUND. PROVIDER ORDERED XRAY OF LEFT HIP. PATIENT HAS NO COMPLAINTS OTHER THAN RIGHT HIP PAIN.
--- NOTE | 2023-02-27 18:36 | ECG_ITS ---
[facility] Test Date: 2023-02-27 Pat Name: Moses Cardoza Department: Room: Gender: Male Energy Analyst: : 1950 Requested By: Chad Tavares Order Number: [id number] Rafiq MD: Hoang Cloud M.D. Measurements Intervals [place] Rate: 103 P: 84 OR: 117 QRS: 58 QRSD: 98 T: 220 QT: 349 QTc: 459 Interpretive Statements SINUS TACHYCARDIA WITH SHORT OR INTERVAL NONSPECIFIC T-WAVE ABNORMALITY Compared to ECG 02/06/2023 01:01:51 T-wave abnormality now present Sinus rhythm no longer present Electronically Signed On 03-01-2023 14:08:49 PRODUCTION CONTROL MANAGER by Hoang Cloud M.D. [email or web address]
[2023-02-27 18:47] LABS: Basophils % 0.1 %; Eosinophils # 0.2 10^3/uL (0.0-0.8); Eosinophils % 1.8 %; Hematocrit 27.9 % (37-53); Lymphocytes # 0.5 10^3/uL (0.8-4.8); Lymphocytes % 6.2 %; Mean Corpuscular HGB Conc 31.9 g/dL (30-55); Mean Corpuscular Hemoglobin 28.3 pg (27-33); Mean Corpuscular Volume 88.6 fl (82-101); Mean Platelet Volume 10.7 fL (7.4-10.4); Monocytes # 0.5 10^3/uL (0.2-0.9); Monocytes % 5.8 %; Neutrophils # 7.22 10^3/uL (1.8-7.7); Neutrophils % 85.7 %; Nucleated Red Blood Cells % 0 %; Platelet Count 166 10^3/cmm (157-399); Red Blood Count 3.15 10^6/uL (3.85-5.65); Red Cell Distribution Width 14.1 % (12.1-15.1); White Blood Count 8.42 10^3/uL (3.29-11.43)
--- NOTE | 2023-02-27 18:57 | PC.NURSE ---
Report taken from GORDY Neil.
[2023-02-27 19:06] LABS: Alanine Aminotransferase 21 U/L (0-41); Albumin Level 3.3 g/dL (3.5-5.2); Alkaline Phosphatase 95 U/L (40-130); Anion Gap 14.4 (5-19); Aspartate Amino Transferase 16 U/L (0-40); Blood Urea Nitrogen 41 mg/dL (8-23); Calcium 10.2 mg/dL (8.5-10.5); Carbon Dioxide 26 mmol/L (22-29); Chloride 105 mmol/L (98-107); Globulin 3.7 g/dL (1.3-4.6); Glucose 284 mg/dL (65-115); INR 1.25 (0.8-1.2); Osmolality Calculated 312 mOsm/kg (285-295); Potassium 4.4 mmol/L (3.5-5.1); Sodium 141 mmol/L (136-145); Total Bilirubin 0.8 mg/dL (0.15-1.2)
--- NOTE | 2023-02-27 19:27 | PM.HP ---
Providers/Chief Complaint Admitting Physician: Aleksandr Colin MD Primary Care Provider: Daniel Leyva DO Chief Complaint: Covid, Hip fx History of Present Illness Moses Cardoza is a 73 year old male with a past medical history significant for COPD, congestive heart failure, type 2 diabetes mellitus, lung cancer and pulmonary emboli who presents to the emergency department with hip pain after fall last night. Reports exertion worsens pain. Rest improves pain. Rates pain currently 10 out of 10. Endorses associated with right shoulder pain following the fall. In the ED, patient was found to have right femur intertrochanteric fracture. He was also found to be COVID-19 positive. He denies fevers, chills, nausea, or vomiting. Review of Systems Narrative: A complete review of systems was obtained and is negative except as stated in HPI. Medications/Allergies Home Medications Medication Instructions Recorded Confirmed Last Taken Type alendronate 70 mg tablet 70 mg PO Q7D 04/16/19 02/19/23 02/13/23 History cholecalciferol (vitamin D3) 25 25 mcg PO DAILY@11/15/21 02/19/23 02/19/23 History mcg (1,000 unit) tablet (Vitamin D3) ferrous sulfate 325 mg (65 mg 325 mg PO EVERY OTHER DAY 01/18/22 02/19/23 02/18/23 History iron) tablet polyethylene glycol 3350 17 gram 17 g PO EVERY OTHER DAY 01/18/22 02/19/23 02/18/23 History oral powder packet albuterol sulfate 2.5 mg/3 mL 2.5 mg inhalation Q4H PRN 02/16/22 02/19/23 10/06/22 History (0.083 %) solution for nebulization Shortness Of Breath budesonide 0.5 mg/2 mL suspension 0.5 mg inhalation BID 02/16/22 02/19/23 02/19/23 History for nebulization guaifenesin 100 mg/5 mL oral liquid 100 mg PO Q4H PRN Cough 02/16/22 02/19/23 2 Weeks Ago History ~04/12/22 ipratropium 0.5 mg-albuterol 3 mg 3 ml inhalation TID 02/16/22 02/19/23 02/19/23 History (2.5 mg base)/3 mL nebulization soln morphine 30 mg tablet,extended 30 mg PO TID@07,,02/16/22 02/19/23 02/19/23 14:06 History release nitroglycerin 0.4 mg sublingual 0.4 mg sublingual Q5M PRN chest 02/20/22 02/19/23 Unknown Rx tablet pain #30 tabs finasteride 5 mg tablet 5 mg PO BEDTIME 04/17/22 02/19/23 02/18/23 History escitalopram oxalate 20 mg tablet 20 mg PO DAILY@07/13/22 02/19/23 02/19/23 History losartan 25 mg tablet 25 mg PO DAILY@07/13/22 02/19/23 02/19/23 History magnesium hydroxide 400 mg/5 mL 30 ml PO Q72H PRN if no bm in 3 07/13/22 02/19/23 Unknown History oral suspension (Milk of Magnesia) days bisacodyl 10 mg rectal suppository 10 mg [place] DAILY PRN Constipation 09/05/22 02/19/23 Unknown History (Dulcolax (bisacodyl)) dextran 70-hypromellose (PF) 0.1 1 drp ophthalmic (eye) QID 09/05/22 02/19/23 02/19/23 History %-0.3 % eye drops in a dropperette (Artificial Tears (PF)) fluticasone fur. 100 mcg-umeclid 1 inh inhalation DAILY@09/05/22 02/19/23 02/19/23 History 62.5 mcg-vilant 25 mcg inhalat.powder (Trelegy Ellipta) furosemide 20 mg tablet (Lasix) 20 mg PO DAILY@09/05/22 02/19/23 02/19/23 History menthol 5.8 mg lozenges ([place] 5.8 mg mucous membrane Q2H PRN 09/05/22 02/19/23 Unknown History Cough Drops) Cough metoprolol succinate 50 mg 50 mg PO DAILY@09/05/22 02/19/23 02/19/23 History tablet,extended release 24 hr omeprazole 20 mg capsule,delayed 20 mg PO DAILY@09/05/22 02/19/23 02/19/23 History release potassium chloride 10 mEq 10 meq PO DAILY@09/05/22 02/19/23 02/19/23 History tablet,extended release rosuvastatin 20 mg tablet 20 mg PO BEDTIME 09/05/22 02/19/23 02/18/23 History tamsulosin 0.4 mg capsule 0.4 mg PO BEDTIME 09/05/22 02/19/23 02/18/23 History bisacodyl 5 mg tablet,delayed 10 mg PO DAILY PRN Constipation 10/12/22 02/19/23 Unknown History release (Dulcolax (bisacodyl)) buspirone 5 mg tablet 7.5 mg PO BID 10/12/22 02/19/23 02/19/23 History acetaminophen 325 mg tablet 650 mg PO Q6H PRN Pain 02/06/23 02/19/23 Unknown History benzocaine 10 % mucosal gel 1 applic mucous membrane TID PRN 02/06/23 02/19/23 Unknown History (Anbesol (benzocaine)) Mouth Pain albuterol sulfate 90 mcg/actuation 2 puff inhalation Q6H PRN Dyspnea 02/19/23 02/19/23 Unknown History aerosol inhaler aspirin 81 mg tablet,delayed 81 mg PO DAILY@02/19/23 02/19/23 02/19/23 History release clopidogrel 75 mg tablet 75 mg PO DAILY@02/19/23 02/19/23 02/19/23 History insulin lispro 100 unit/mL See Rx Instructions .Route .COMPLEX 02/19/23 02/19/23 02/19/23 History subcutaneous pen (Humalog KwikPen (U-100) Insulin) pramoxine-calamine 1 %-8 % lotion 1 applic topical TID PRN itching 02/19/23 02/19/23 Unknown History (Calamine Plus (pramoxine-calamine)) sodium phosphates 19 gram-7 118 ml [place] DAILY PRN Constipation 02/19/23 02/19/23 Unknown History gram/118 mL enema (Fleet Enema) atropine 1 % eye drops 4 drp sublingual Q4H PRN 02/21/23 Unknown Rx secretions #5 mL bisacodyl 10 mg rectal suppository 10 mg [place] DAILY PRN constipation #5 02/21/23 Unknown Rx ea insulin degludec 100 unit/mL (3 5 unit (0.05 mL) SUBCUT BEDTIME 1102/19/23 02/18/23 Rx mL) subcutaneous pen (Tresiba #15 mL FlexTouch U-100 insulin) lorazepam 2 mg/mL oral concentrate 2 mg sublingual Q4H PRN 02/21/23 Unknown Rx Anxiety/Seizure #30 mL morphine concentrate 100 mg/5 mL 20 mg sublingual DIRECTED PRN 02/21/23 Unknown Rx (20 mg/mL) oral solution Pain/SOB 14 days #30 mL ondansetron 4 mg disintegrating 4 mg translingual Q4H PRN nausea 02/21/23 Unknown Rx tablet #5 tabs Allergies Allergy/AdvReac Type Severity Reaction Status Date / Time levofloxacin Allergy ALGY-Hives Verified 02/19/23 16:04 tree and shrub pollen Allergy ADR-Headach Verified 02/19/23 16:04 e PFSH Acute PFSH: Medical History (Updated 02/27/23 @ 20:47 by Aleksandr Colin MD) Acute and chronic respiratory failure with hypercapnia Acute exacerbation of chronic obstructive airways disease Atherosclerosis of coronary artery Chronic low back pain with 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 Hwang -[place] Hx of cholecystectomy Hx of eye surgery bilat-Dr. Navarrete did right and Dr. Perez in [place] Hx of kyphoplasty 07/05/[address] Powell Status post colonoscopy (05/11/20) normal Family History Brother Cancer Diabetes Heart disease Social History Smoking and tobacco/nicotine status: former use of tobacco/nicotine (smoked x 40 years) Quit status (tobacco/nicotine): has quit using Year quit tobacco: 2016 - 1 PPD x 45 Years Former quit date comment: Started at age 17 Second hand smoke exposure: No Alcohol intake: former Year of sobriety/quit date alcohol: 2013 Former alcohol use details: beer Substance/Drug Use: never Lives independently: Yes Household members: none Marital status: service: No Current occupational status: disabled Do you think of yourself as: Straight/Heterosexual Current gender identity: Male Vitals/I&O/Wt Last Vital Signs Temp 97.7 F 02/27/23 15:58 Pulse 82 02/27/23 15:58 Resp 17 02/27/23 15:58 BP 103/64 02/27/23 15:58 Pulse Ox 95 02/27/23 15:58 O2 Del Method Nasal Cannula 02/27/23 15:58 O2 Flow Rate 3 02/27/23 15:58 Weight last 48 hrs Weight 78.018 kg Physical Exam Narrative: General: Patient is awake. Head: Temporal wasting. Neck: No JVD. Cardiovascular: RRR. No gallops. No murmurs. Lungs: Clear to auscultation, no use of accessory muscles, no crackles or wheezes. Skin: No jaundice. No rashes. Abdomen: Normal bowel sounds, abdomen soft and nontender. Extremities: No cyanosis or clubbing. Musculoskeletal: No erythematous joints. Neurological: Moves all 4 extremities. No myoclonus. Data 02/27/23 18:39 02/27/23 18:39 A&P Assessment and plan (1) Closed fracture of right hip: Bedrest Orthopedics consult, anticipate surgery NPO after midnight Hold anti-platelet agents Multimodal pain control Qualifiers: Encounter type: initial encounter Qualified Code(s): S72.001A - Fracture of unspecified part of neck of right femur, initial encounter for closed fracture (2) Lung cancer: Medical records reviewed and appreciated Recently started on hospice, focus on quality of life No further disease-cancer oriented treatments Continue home pain medications, anticipate possible higher morphine tolerance Supportive care Qualifiers: Laterality: unspecified laterality Lung location: unspecified part of lung Qualified Code(s): C34.90 - Malignant neoplasm of unspecified part of unspecified bronchus or lung (3) COVID-19: Associated with chronic hypoxic respiratory failure Isolation precautions (4) Anemia: Monitor blood counts, HGB currently 8.9 (5) Type 2 diabetes mellitus: SSI (6) COPD (chronic obstructive pulmonary disease): Not in acute exacerbation Breathing treatments as needed Plan DVT ppx: SCD. Antipate surgery. Attestations Medical Necessity Statement*: Patient presents with hip fracture with expcted hospitalization to cross two midnights for surgery and supportive care. Coding Level of Care Code Acute Code for [facility] Fwd Diagnoses Closed fracture of right hip S72.001A Encounter type: initial encounter Lung cancer C34.90 Laterality: unspecified laterality Lung location: unspecified part of lung COVID-19 U07.1 Anemia D64.9 Type 2 diabetes mellitus E11.9 COPD (chronic obstructive pulmonary disease) J44.9
--- NOTE | 2023-02-27 19:53 | PC.NURSE ---
Report called to Olga Campos on Med-Surg. All questions and concerns addressed at time of report.
[2023-02-27 20:40] VITALS: BP 136/75; PULSE 94; RESP 18; TEMP 36.6; O2SAT 93
[2023-02-27 20:44] VITALS: BMI 23.4
--- NOTE | 2023-02-27 21:17 | XRR_ITS ---
PROCEDURE INFORMATION: Exam: XR Right Femur Exam date and time: 02/27/2023 11:28 PM Age: 73 years old Clinical indication: Injury or trauma; Fall; Other: R hip fracture; Patient HX: Pre-op; Additional info: Right it FX TECHNIQUE: Imaging protocol: Radiologic exam of the right femur. Views: 2 views. COMPARISON: [place] bone scan whole body* [id number] 07/02/2017 7:52 AM FINDINGS: Bones/joints: Angulated intertrochanteric fracture of the right femur. Distal femur is intact. Mild arthropathy noted at the knee with meniscal chondrocalcinosis. Soft tissues: Unremarkable. XR/XR femur RT min 2V* [id number] IMPRESSION: 1. Angulated intertrochanteric fracture of the proximal femur. Distal femur is intact. 2. Mild knee osteoarthritis with meniscal chondrocalcinosis.
--- NOTE | 2023-02-27 21:17 | XRR_ITS ---
PROCEDURE INFORMATION: Exam: XR Right Knee Exam date and time: 02/27/2023 11:28 PM Age: 73 years old Clinical indication: Injury or trauma; Fall; Other: R hip fracture; Patient HX: Pre-op; Additional info: Right hip FX, preop planning TECHNIQUE: Imaging protocol: Radiologic exam of the right knee. Views: 1 or 2 views. COMPARISON: [place] bone scan whole body* [id number] 07/02/2017 7:52 AM FINDINGS: Bones/joints: There is mild tricompartmental osteoarthritis. No evidence of acute fracture. No joint effusion. Meniscal chondrocalcinosis is noted. Soft tissues: Normal. XR/XR knee RT 1-2V [id number] IMPRESSION: Mild tricompartmental osteoarthritis with meniscal chondrocalcinosis. Findings suggest underlying calcium pyrophosphate deposition disease.
[2023-02-27 22:55] VITALS: RESP 16
[2023-02-27] MEDS: finasteride 5 mg Tablet PO (22:55)
[2023-02-27] MEDS: morphine ER (12 HR) 30 mg tablet PO (22:55)
[2023-02-27] MEDS: tamsulosin 0.4 mg Capsule PO (22:55)
[2023-02-28] VITALS (20 sets, daily range): BP systolic 82–170; BP diastolic 47–91; PULSE 72–94; RESP 14–20; TEMP 36.4–37.2; O2SAT 92–99
--- NOTE | 2023-02-28 | XR_ITS ---
WS: [id number] Exam: XR hip RT 2-3V wo/w pel* [id number] Date/Time of Exam: 02/28/2023 12:00 AM Reason For Exam: orif right hip, or pic Intraoperative C-arm images of the RIGHT hip demonstrate internal fixation involving an intertrochant mk fracture. The fracture is stabilized in satisfactory alignment for healing.
[2023-02-28] MEDS: sodium chloride 0.9% 1,000 ML 75 ML IV ×2 (04:08→18:13)
[2023-02-28] MEDS: escitalopram 10 mg Tablet 20 MG PO (06:31)
[2023-02-28] MEDS: pantoprazole DR 40 mg Tablet PO (06:32)
[2023-02-28] MEDS: metoprolol succinate ER (24 HR) 50 mg Tablet PO (06:32)
[2023-02-28] MEDS: morphine ER (12 HR) 30 mg tablet PO ×3 (06:32→22:41)
[2023-02-28 06:36] LABS: Glucose Point of Care 291 mg/dL (70-110)
--- NOTE | 2023-02-28 07:04 | P.CONIM_ITS ---
Providers/Reason For Consult Consulting Physician/Specialty*: Brennan Duong DO/orthopedic surgery Reason for Consult*: Right intertrochanteric femur fracture Requesting Physician: Dr. Colin Attending Physician: Aleksandr Colin MD Primary Care Provider: Daniel Leyva DO History of Present Illness History of Present Illness Moses Cardoza is a 73 year old male with a past medical history significant for COPD, congestive heart failure, type 2 diabetes mellitus, lung cancer and on hospice who presents to the emergency department with hip pain after fall last night.? Patient COVID-positive. reports exertion worsens pain.? Rest improves pain.? Rates pain currently 10 out of 10.? Endorses associated with right víctor ulder pain following the fall.? In the ED, patient was found to have right femur intertrochanteric fracture.? He was also found to be COVID-19 positive.? He denies fevers, chills, nausea, or vomiting.? Patient admitted under hospitalist, orthopedics consulted for right hip intertrochanteric femur fracture Discussed case with Patient's sister as well talked about treatment options and given patient is on hospice they state he has been given over roughly 6 months to live for pain control and quality of life and mobility and they would like to pursue surgical intervention. Review of Systems General: Reports: 10 or more systems reviewed and unremarkable except in HPI and below Medications/Allergies Home Medications Medication Instructions Recorded Confirmed Last Taken Type alendronate 70 mg tablet 70 mg PO Q7D 04/16/19 02/28/23 02/13/23 History cholecalciferol (vitamin D3) 25 25 mcg PO DAILY@07 11/15/21 02/28/23 02/26/23 History mcg (1,000 unit) tablet (Vitamin D3) ferrous sulfate 325 mg (65 mg 325 mg PO EVERY OTHER DAY 01/18/22 02/28/23 02/26/23 History iron) tablet polyethylene glycol 3350 17 gram 17 g PO EVERY OTHER DAY 01/18/22 02/19/23 02/18/23 History oral powder packet albuterol sulfate 2.5 mg/3 mL 2.5 mg inhalation Q4H PRN 02/16/22 02/19/23 10/06/22 History (0.083 %) solution for nebulization Shortness Of Breath budesonide 0.5 mg/2 mL suspension 0.5 mg inhalation BID 02/16/22 02/28/23 02/26/23 History for nebulization guaifenesin 100 mg/5 mL oral liquid 100 mg PO Q4H PRN Cough 02/16/22 02/28/23 2 Weeks Ago History ~04/12/22 ipratropium 0.5 mg-albuterol 3 mg 3 ml inhalation TID 02/16/22 02/28/23 02/26/23 History (2.5 mg base)/3 mL nebulization soln morphine 30 mg tablet,extended 30 mg PO TID@,02/16/22 02/28/23 02/26/23 History release nitroglycerin 0.4 mg sublingual 0.4 mg sublingual Q5M PRN chest 02/20/22 02/19/23 Unknown Rx tablet pain #30 tabs finasteride 5 mg tablet 5 mg PO BEDTIME 04/17/22 02/28/23 02/26/23 History escitalopram oxalate 20 mg tablet 20 mg PO DAILY@07/13/22 02/28/23 02/26/23 History losartan 25 mg tablet 25 mg PO DAILY@07/13/22 02/28/23 02/26/23 History magnesium hydroxide 400 mg/5 mL 30 ml PO Q72H PRN if no bm in 3 07/13/22 02/28/23 01/27/23 History oral suspension (Milk of Magnesia) days dextran 70-hypromellose (PF) 0.1 1 drp ophthalmic (eye) QID 09/05/22 02/28/23 02/27/23 History %-0.3 % eye drops in a dropperette (Artificial Tears (PF)) fluticasone fur. 100 mcg-umeclid 1 inh inhalation DAILY@09/05/22 02/19/23 02/19/23 History 62.5 mcg-vilant 25 mcg inhalat.powder (Trelegy Ellipta) furosemide 20 mg tablet (Lasix) 20 mg PO DAILY@09/05/22 02/28/23 02/26/23 History menthol 5.8 mg lozenges ([place] 5.8 mg mucous membrane Q2H PRN 09/05/22 02/28/23 10/31/22 History Cough Drops) Cough metoprolol succinate 50 mg 50 mg PO DAILY@09/05/22 02/28/23 02/26/23 History tablet,extended release 24 hr omeprazole 20 mg capsule,delayed 20 mg PO DAILY@09/05/22 02/19/23 02/19/23 History release potassium chloride 10 mEq 10 meq PO DAILY@09/05/22 02/19/23 02/19/23 History tablet,extended release rosuvastatin 20 mg tablet 20 mg PO BEDTIME 09/05/22 02/19/23 02/18/23 History tamsulosin 0.4 mg capsule 0.4 mg PO BEDTIME 09/05/22 02/19/23 02/18/23 History bisacodyl 5 mg tablet,delayed 10 mg PO DAILY PRN Constipation 10/12/22 02/28/23 12/28/22 History release (Dulcolax (bisacodyl)) acetaminophen 325 mg tablet 650 mg PO Q6H PRN Pain 02/06/23 02/28/23 12/12/22 History benzocaine 10 % mucosal gel 1 applic mucous membrane TID PRN 02/06/23 02/28/23 12/14/22 History (Anbesol (benzocaine)) Mouth Pain albuterol sulfate 90 mcg/actuation 2 puff inhalation Q6H PRN Dyspnea 02/19/23 02/28/23 Unknown History aerosol inhaler aspirin 81 mg tablet,delayed 81 mg PO DAILY@02/19/23 02/28/23 02/26/23 History release clopidogrel 75 mg tablet 75 mg PO DAILY@02/19/23 02/19/23 02/19/23 History insulin lispro 100 unit/mL See Rx Instructions .Route .COMPLEX 02/19/23 02/19/23 02/19/23 History subcutaneous pen (Humalog KwikPen (U-100) Insulin) pramoxine-calamine 1 %-8 % lotion 1 applic topical TID PRN itching 02/19/23 02/19/23 Unknown History (Calamine Plus (pramoxine-calamine)) sodium phosphates 19 gram-7 118 ml [place] DAILY PRN Constipation 02/19/23 02/28/23 Unknown History gram/118 mL enema (Fleet Enema) atropine 1 % eye drops 4 drp sublingual Q4H PRN 02/21/23 02/28/23 Unknown Rx secretions #5 mL bisacodyl 10 mg rectal suppository 10 mg LA DAILY PRN constipation #5 02/21/23 02/28/23 12/14/22 Rx ea insulin degludec 100 unit/mL (3 5 unit (0.05 mL) SUBCUT BEDTIME 02/21/23 02/19/23 02/18/23 Rx mL) subcutaneous pen (Tresiba #15 mL FlexTouch U-100 insulin) lorazepam 2 mg/mL oral concentrate 2 mg sublingual Q4H PRN 02/21/23 02/28/23 Unknown Rx Anxiety/Seizure #30 mL morphine concentrate 100 mg/5 mL 20 mg sublingual DIRECTED PRN 02/21/23 Unknown Rx (20 mg/mL) oral solution Pain/SOB 14 days #30 mL ondansetron 4 mg disintegrating 4 mg translingual Q4H PRN nausea 02/21/23 Unknown Rx tablet #5 tabs buspirone 7.5 mg tablet 7.5 mg PO BID 02/28/23 02/28/23 02/26/23 History Allergies Allergy/AdvReac Type Severity Reaction Status Date / Time levofloxacin Allergy ALGY-Hives Verified 02/19/23 16:04 tree and shrub pollen Allergy ADR-Headach Verified 02/19/23 16:04 e Current Medications Generic Name Dose Route Start Last Admin Trade Name Freq PRN Reason Stop Dose Admin Escitalopram Oxalate 20 mg 02/28/23 07:00 02/28/23 06:31 Escitalopram 10 Mg Tablet PO 20 mg DAILY@07 CÉSAR Administration Finasteride 5 mg 02/27/23 21:00 02/27/23 22:55 Finasteride 5 Mg Tablet PO 5 mg BEDTIME CÉSAR Administration Sodium Chloride 1,000 mls @ 75 mls/hr 02/28/23 04:00 02/28/23 04:08 Sodium Chloride 0.9% IV 75 mls/hr .[id number] CÉSAR Administration Metoprolol Succinate 50 mg 02/28/23 07:00 02/28/23 06:32 Metoprolol Succinate Er (24 Hr) 50 Mg Tablet PO 50 mg DAILY@07 CÉSAR Administration Morphine Sulfate 30 mg 02/27/23 23:00 02/28/23 06:32 Morphine Er (12 Hr) 30 Mg Tablet PO 30 mg TID@ CÉSAR Administration Pantoprazole Sodium 40 mg 02/28/23 07:00 02/28/23 06:[address] 40 Mg Tablet PO 40 mg DAILY@07 CÉSAR Administration Tamsulosin HCl 0.4 mg 02/27/23 21:00 02/27/23 22:55 Tamsulosin 0.4 Mg Capsule PO 0.4 mg BEDTIME CÉSAR Administration PFSH Acute PFSH: Medical History (Updated 02/28/23 @ 07:08 by Brennan Duong DO) Acute and chronic respiratory failure with hypercapnia Acute exacerbation of chronic obstructive airways disease Atherosclerosis of coronary artery Chronic low back pain with 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 Hwang -[place] Hx of cholecystectomy Hx of eye surgery bilat-Dr. Navarrete did right and Dr. Perez in [place] Hx of kyphoplasty 07/05/[address] Powell Status post colonoscopy (05/11/20) normal Family History Brother Cancer Diabetes Heart disease Social History Smoking and tobacco/nicotine status: former use of tobacco/nicotine (smoked x 40 years) Quit status (tobacco/nicotine): has quit using Year quit tobacco: 2016 - PPD x 45 Years Former quit date comment: Started at age 17 Second hand smoke exposure: No Alcohol intake: former Year of sobriety/quit date alcohol: 2013 Former alcohol use details: beer Substance/Drug Use: never Lives independently: Yes Household members: none Marital status: service: No Current occupational status: disabled Do you think of yourself as: Straight/Heterosexual Current gender identity: Male Vitals/I&O/Wt Last Vital Signs Temp 98.6 F 02/28/23 05:00 Pulse 72 02/28/23 05:00 Resp 20 H 02/28/23 05:00 BP 170/75 02/28/23 05:00 Pulse Ox 92 02/28/23 05:00 O2 Del Method Nasal Cannula 02/27/23 20:44 O2 Flow Rate 1.50 02/27/23 20:40 02/27/23 02/28/23 02/28/23 22:59 06:59 14:59 Intake Total 480 / 480 Output Total 325 / 325 Balance 480 / 480 -325 / 155 Weight last 48 hrs Weight 167 lb 9.6 oz Weight 168 lb 3.2 oz Weight 172 lb Physical Exam Narrative: Examination right lower extremity shortened and externally rotated tenderness to palpation at the right Hip significant pain with logroll examination, unable to perform [place] s econdary to pain. Right lower extremities warm well perfused sensation intact to light touch distally. Examination of the right shoulder demonstrates swelling and tenderness to palpation over the distal clavicle at fracture site did not assess range of motion of the shoulder secondary to pain discomfort. Patient is having normal sensation and gross motor and sensory intact to the bilateral upper extremities. No pain with logroll examination to the left lower extremity Data 02/27/23 18:39 02/27/23 18:39 Xray Ortho: My impression: X-rays of the right hip femur and knee demonstrate a displaced right intertrochanteric femur fracture. X-rays of the right shoulder reviewed and personally interpreted by myself demonstrating a what appears to be minimally displaced right distal clavicle fracture appears to be in stable position A&P Assessment and plan (1) Closed fracture of right hip: Qualifiers: Encounter type: initial encounter Qualified Code(s): S72.001A - Fractu re of unspecified part of neck of right femur, initial encounter for closed fracture (2) Right clavicle fracture: (3) COVID-19: (4) Lung cancer: Qualifiers: Laterality: unspecified laterality Lung location: unspecified part of lung Qualified Code(s): C34.90 - Malignant neoplasm of unspecified part of unspecified bronchus or lung (5) Type 2 diabetes mellitus: (6) COPD (chronic obstructive pulmonary disease): (7) Anemia: Plan N.p.o. since midnight Internal medicine admitted patient as primary patient's agree to medically optimized for surgical intervention Plan to proceed with right hip trochanteric femur nail today Imaging reviewed Recommend sling for right distal clavicle fracture Pain control To the OR today Patient is transfer from nursing home facility has a right intertrochanteric femur fracture also complains of right shoulder pain and x-rays reviewed demonstrate a right distal clavicle fracture we will treat the clavicle fracture nonoperatively. As far as his right hip fracture I do feel as far as for earlier mobilization and ultimately pain control this would offer better quality of life for the patient getting this fixed rather than leaving this alone I did offer nonoperative versus operative intervention and after discussing this with patient as well as sister they elect to proceed with surgical intervention understands the ins and outs procedure risk benefits complication alternatives surgery risk of surgery include not limited to make it better make it worse, blood clot, heart attack, stroke, on table, infection, failure of hardware. Understanding risk of surgery they like to proceed all questions answered this time we will proceed with surgical intervention for the right hip today. Coding Level of Care Code Acute Code for [facility] Diagnoses Closed fracture of right hip S72.001A Encounter type: initial encounter Right clavicle fracture S42.001A COVID-19 U07.1 Lung cancer C34.90 Laterality: unspecified laterality Lung location: unspecified part of lung Type 2 diabetes mellitus E11.9 COPD (chronic obstructive pulmonary disease) J44.9 Anemia D64.9 Time Spent (min) 45
[2023-02-28] MEDS: acetaminophen 1,000 MG/100 ML PIGGYBACK 400 MG IV (07:42)
[2023-02-28] MEDS: ketorolac 30 mg/mL INJ IVP (07:46)
[2023-02-28] MEDS: sodium chloride 0.9% 1,000 ML 30 ML IV (07:53)
--- NOTE | 2023-02-28 08:00 | ANES.PREANE2 ---
Pre-Anesthetic Assessment Height/Weight: Height 1.8 m Weight 76.022 kg Temp Pulse Resp BP Pulse Ox O2 Del Method O2 Flow Rate 98.6 F 72 20 H 170/75 92 Nasal Cannula 1.50 02/28/23 05:00 02/28/23 05:00 02/28/23 05:00 02/28/23 05:00 02/28/23 05:00 02/27/23 20:44 02/27/23 20:40 Preop Diagnosis: Right intertrochanteric femur frature Operation Date: 02/28/23 08:50 Proposed Procedures p Trochanteric Femoral Nail(Right) - Brennan Ad, DO Familial anesthetic complications: None Last intake: > 8 hrs Social No alcohol and No tobacco Exam alert, oriented x 3, clear to auscultation bilaterally and regular rate & rhythm coarse Airway Mallampati: Class II Dentition: other (no teeth) Pulmonary Chronic Obstructive Pulmonary Disease Lung cancer [facility] positive per [facility] Hx PE CV/HEM Coronary Artery Disease (JIHAN in 23 on plavix), Congestive Heart Failure and Hypertension Metabolic Diabetes Mellitus and Hyperlipidemia Musc/skel R clavicle fx Anesthetic Plan ASA status: 4 Anesthesia: General Risk of > 500 ml blood loss (7ml/kg in children): No Medications/Allergies Home Medications Medication Instructions Recorded Confirmed Last Taken Type alendronate 70 mg tablet 70 mg PO Q7D 04/16/19 02/19/23 02/13/23 History cholecalciferol (vitamin D3) 25 25 mcg PO DAILY@07 11/15/21 02/19/23 02/19/23 History mcg (1,000 unit) tablet (Vitamin D3) ferrous sulfate 325 mg (65 mg 325 mg PO EVERY OTHER DAY 01/18/22 02/19/23 02/18/23 History iron) tablet polyethylene glycol 3350 17 gram 17 g PO EVERY OTHER DAY 01/18/22 02/19/23 02/18/23 History oral powder packet albuterol sulfate 2.5 mg/3 mL 2.5 mg inhalation Q4H PRN 02/16/22 02/19/23 10/06/22 History (0.083 %) solution for nebulization Shortness Of Breath budesonide 0.5 mg/2 mL suspension 0.5 mg inhalation BID 02/16/22 02/19/23 02/19/23 History for nebulization guaifenesin 100 mg/5 mL oral liquid 100 mg PO Q4H PRN Cough 02/16/22 02/19/23 2 Weeks Ago History ~04/12/22 ipratropium 0.5 mg-albuterol 3 mg 3 ml inhalation TID 02/16/22 02/19/23 02/19/23 History (2.5 mg base)/3 mL nebulization soln morphine 30 mg tablet,extended 30 mg PO TID@,02/16/22 02/19/23 02/19/23 14:06 History release nitroglycerin 0.4 mg sublingual 0.4 mg sublingual Q5M PRN chest 02/20/22 02/19/23 Unknown Rx tablet pain #30 tabs finasteride 5 mg tablet 5 mg PO BEDTIME 04/17/22 02/19/23 02/18/23 History escitalopram oxalate 20 mg tablet 20 mg PO DAILY@07/13/22 02/19/23 02/19/23 History losartan 25 mg tablet 25 mg PO DAILY@07/13/22 02/19/23 02/19/23 History magnesium hydroxide 400 mg/5 mL 30 ml PO Q72H PRN if no bm in 3 07/13/22 02/19/23 Unknown History oral suspension (Milk of Magnesia) days bisacodyl 10 mg rectal suppository 10 mg SD DAILY PRN Constipation 09/05/22 02/19/23 Unknown History (Dulcolax (bisacodyl)) dextran 70-hypromellose (PF) 0.1 1 drp ophthalmic (eye) QID 09/05/22 02/19/23 02/19/23 History %-0.3 % eye drops in a dropperette (Artificial Tears (PF)) fluticasone fur. 100 mcg-umeclid 1 inh inhalation DAILY@09/05/22 02/19/23 02/19/23 History 62.5 mcg-vilant 25 mcg inhalat.powder (Trelegy Ellipta) furosemide 20 mg tablet (Lasix) 20 mg PO DAILY@09/05/22 02/19/23 02/19/23 History menthol 5.8 mg lozenges ([place] 5.8 mg mucous membrane Q2H PRN 09/05/22 02/19/23 Unknown History Cough Drops) Cough metoprolol succinate 50 mg 50 mg PO DAILY@09/05/22 02/19/23 02/19/23 History tablet,extended release 24 hr omeprazole 20 mg capsule,delayed 20 mg PO DAILY@09/05/22 02/19/23 02/19/23 History release potassium chloride 10 mEq 10 meq PO DAILY@09/05/22 02/19/23 02/19/23 History tablet,extended release rosuvastatin 20 mg tablet 20 mg PO BEDTIME 09/05/22 02/19/23 02/18/23 History tamsulosin 0.4 mg capsule 0.4 mg PO BEDTIME 09/05/22 02/19/23 02/18/23 History bisacodyl 5 mg tablet,delayed 10 mg PO DAILY PRN Constipation 10/12/22 02/19/23 Unknown History release (Dulcolax (bisacodyl)) buspirone 5 mg tablet 7.5 mg PO BID 10/12/22 02/19/23 02/19/23 History acetaminophen 325 mg tablet 650 mg PO Q6H PRN Pain 02/06/23 02/19/23 Unknown History benzocaine 10 % mucosal gel 1 applic mucous membrane TID PRN 02/06/23 02/19/23 Unknown History (Anbesol (benzocaine)) Mouth Pain albuterol sulfate 90 mcg/actuation 2 puff inhalation Q6H PRN Dyspnea 02/19/23 02/19/23 Unknown History aerosol inhaler aspirin 81 mg tablet,delayed 81 mg PO DAILY@02/19/23 02/19/23 02/19/23 History release clopidogrel 75 mg tablet 75 mg PO DAILY@02/19/23 02/19/23 02/19/23 History insulin lispro 100 unit/mL See Rx Instructions .Route .COMPLEX 02/19/23 02/19/23 02/19/23 History subcutaneous pen (Humalog KwikPen (U-100) Insulin) pramoxine-calamine 1 %-8 % lotion 1 applic topical TID PRN itching 02/19/23 02/19/23 Unknown History (Calamine Plus (pramoxine-calamine)) sodium phosphates 19 gram-7 118 ml [place] DAILY PRN Constipation 02/19/23 02/19/23 Unknown History gram/118 mL enema (Fleet Enema) atropine 1 % eye drops 4 drp sublingual Q4H PRN 02/21/23 Unknown Rx secretions #5 mL bisacodyl 10 mg rectal suppository 10 mg SD DAILY PRN constipation #5 02/21/23 Unknown Rx ea insulin degludec 100 unit/mL (3 5 unit (0.05 mL) SUBCUT BEDTIME 02/21/23 02/19/23 02/18/23 Rx mL) subcutaneous pen (Tresiba #15 mL FlexTouch U-100 insulin) lorazepam 2 mg/mL oral concentrate 2 mg sublingual Q4H PRN 02/21/23 Unknown Rx Anxiety/Seizure #30 mL morphine concentrate 100 mg/5 mL 20 mg sublingual DIRECTED PRN 02/21/23 Unknown Rx (20 mg/mL) oral solution Pain/SOB 14 days #30 mL ondansetron 4 mg disintegrating 4 mg translingual Q4H PRN nausea 02/21/23 Unknown Rx tablet #5 tabs Allergies Allergy/AdvReac Type Severity Reaction Status Date / Time levofloxacin Allergy ALGY-Hives Verified 02/19/23 16:04 tree and shrub pollen Allergy ADR-Headach Verified 02/19/23 16:04 e Current Medications Generic Name Dose Route Start Last Admin Trade Name Paz PRN Reason Stop Dose Admin Escitalopram Oxalate 20 mg 02/28/23 07:00 02/28/23 06:31 Escitalopram 10 Mg Tablet PO 20 mg DAILY@07 CÉSAR Administration Finasteride 5 mg 02/27/23 21:00 02/27/23 22:55 Finasteride 5 Mg Tablet PO 5 mg BEDTIME CÉSAR Administration Sodium Chloride 1,000 mls @ 75 mls/hr 02/28/23 04:00 02/28/23 04:08 Sodium Chloride 0.9% IV 75 mls/hr .[id number] CÉSAR Administration Sodium Chloride 1,000 mls @ 30 mls/hr 02/28/23 07:30 02/28/23 07:53 Sodium Chloride 0.9% IV 03/01/23 07:29 30 mls/hr .Q24H CÉSAR Administration Metoprolol Succinate 50 mg 02/28/23 07:00 02/28/23 06:32 Metoprolol Succinate Er (24 Hr) 50 Mg Tablet PO 50 mg DAILY@07 CÉSAR Administration Morphine Sulfate 30 mg 02/27/23 23:00 02/28/23 06:32 Morphine Er (12 Hr) 30 Mg Tablet PO 30 mg TID@ CÉSAR Administration Pantoprazole Sodium 40 mg 02/28/23 07:00 02/28/23 06:[address] 40 Mg Tablet PO 40 mg DAILY@07 CÉSAR Administration Tamsulosin HCl 0.4 mg 02/27/23 21:00 02/27/23 22:55 Tamsulosin 0.4 Mg Capsule PO 0.4 mg BEDTIME CÉSAR Administration [facility] Anesthesia Medical History (Updated 02/28/23 @ 07:08 by Brennan Duong DO) Acute and chronic respiratory failure with hypercapnia Acute exacerbation of chronic obstructive airways disease Atherosclerosis of coronary artery Chronic low back pain with 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 Hwang -[place] Hx of cholecystectomy Hx of eye surgery bilat-Dr. Navarrete did right and Dr. Perez in [place] Hx of kyphoplasty 07/05/[address] Powell Status post colonoscopy (05/11/20) normal Family History Brother Cancer Diabetes Heart disease Social History Smoking and tobacco/nicotine status: former use of tobacco/nicotine (smoked x 40 years) Quit status (tobacco/nicotine): has quit using Year quit tobacco: 2016 - PPD x 45 Years Former quit date comment: Started at age 17 Second hand smoke exposure: No Alcohol intake: former Year of sobriety/quit date alcohol: 2013 Former alcohol use details: beer Substance/Drug Use: never Lives independently: Yes Household members: none Marital status: service: No Current occupational status: disabled Do you think of yourself as: Straight/Heterosexual Current gender identity: Male Data Anesthesia 02/27/23 18:39 02/27/23 18:39 Short CBC 02/27/23 Range/Units 18:39 WBC 8.42 (3.29-11.43) 10^3/uL Hgb 8.90 L (11.27-16.99) g/dL Hct 27.9 L (37-53) % MCV 88.6 (82-101) fl Plt Count 166 (157-399) 10^3/cmm Neut % (Auto) 85.7 % Neut # (Auto) 7.22 (1.8-7.7) 10^3/uL BMP 02/27/23 18:39 Sodium 141 Potassium 4.4 Chloride 105 Carbon Dioxide 26 BUN 41 H Creatinine 1.1 Glucose 284 H Calcium 10.2 Liver Function 02/27/23 Range/Units 18:39 Total Bilirubin 0.8 (0.15-1.2) mg/dL AST 16 (0-40) U/L ALT 21 (0-41) U/L Alkaline Phosphatase 95 (40-130) U/L Albumin 3.3 L (3.5-5.2) g/dL Coags 02/27/23 18:39 PT 16.10 H INR 1.25 H Cardiac Studies: Echocardiogram 02/16/22
--- NOTE | 2023-02-28 08:15 | W.PM.OPSUD ---
Surgery/Procedure H&P Update DATE OF PROCEDURE: February 28, 2023 DATE H&P PERFORMED: 02/28/23 H&P UPDATE INFORMATION: I have reviewed H&P completed within last 30 days, I have examined patient prior to procedure and No changes to prior documentation CHANGES TO PREVIOUS DOCUMENTATION: Pain with patient also spoke and discussed case with his sister. At this point in time they elect to proceed with surgical intervention of her right hip trochanteric femur nail PREOP DIAGNOSIS: Right intertrochanteric femur frature PRIMARY INDICATION FOR PROCEDURE: Right hip displaced intertrochanteric femur fracture PLANNED PROCEDURE: Operation Date: 02/28/23 08:50 Proposed Procedures p Trochanteric Femoral Nail(Right) - Brennan Duong DO
[2023-02-28] MEDS: ceFAZolin 2,000 MG in sodium chloride 0.9% (plus) 50 ML 100 MG IV ×3 (08:21→21:41)
[2023-02-28] MEDS: tranexamic acid 1,000 mg/10mL SDV 1000 MG IV (08:50)
--- NOTE | 2023-02-28 10:01 | XR_ITS ---
WS: [id number] Exam: XR hip RT 2-3V wo/w pel* [id number] Date/Time of Exam: 02/28/2023 10:01 AM Reason For Exam: s/p R hip troch nail Comparison 02/27/2023. Intertrochanteric fracture of the RIGHT hip is now stabilized with an intramedullary wen and femoral neck screw. Alignment is satisfactory for healing. Postoperative changes in the adjacent soft tissues . Surgical skin clips noted laterally. IMPRESSION: 1. Satisfactory ORIF of an intertrochanteric fracture of the RIGHT hip.
--- NOTE | 2023-02-28 10:07 | W.PM.BPON ---
Date of Procedure: 02/28/2023 Surgeon: Brennan Duong DO Client Account Manager(s): None Procedure(s) performed: Right hip intertrochanteric femur fracture open reduction internal fixation with cephalomedullary nail Findings of the procedure(s): Right intertrochanteric femur fracture, procedure went as planned with the right trochanteric femur nail. No complications. Estimated blood loss: 50 mL Specimen(s) removed: None Post-operative diagnosis: Right intertrochanteric femur fracture
--- NOTE | 2023-02-28 10:08 | PM.OP ---
Operative Report Date of procedure: February 28, 2023 Surgeon: Brennan Duong DO Procedure: Preoperative diagnosis: Right displaced intertrochanteric femur fracture Post-op diagnosis: right displaced intertrochanteric femur fracture Procedure done: Right intertrochanteric femur fracture ORIF with cephalomedullary nail Implants: Sandra gamma nail short 11 mm x 180 mm x 125 degree Lag screw 10.5 mm x [110]?mm Distal locking screw 5 mm x 40 mm Surgeon: Brennan Duong DO Estimated blood loss: 50 mL IV fluids: See anesthesia?record Urine output: See anesthesia?record Complications: See operative?report Findings: See operative?report narrative Condition: stable Disposition: Floor Brief History: Patient sustained a fall and was found to have a?right intertrochanteric hip fx.?Pt has?been unable to bear weight,?right hip/lower extremity shortened and externally?rotated.? At this point time Pt?was admitted by the hospitalist team and orthopedics was consulted.??Refer to consult note for detailed HPI.? We talked about treatment options as far as nonoperative and operative intervention.?Recommend?Right hip?trochanteric femur nail.? At this point time patient and family would like to pursue surgical intervention for benefits of pain control and earlier mobilization.?? Patient understands the ins and outs of procedure, the?risk benefits complication alternatives of surgical nonsurgical treatment options.? Understanding?risk of surgery pt?agrees to proceed with surgical intervention all questions answered.? Consent obtained. Procedure: Patient seen evaluated in the preoperative holding area.? Consent was obtained.? Correct extremity was then marked.? Once cleared by anesthesia and the hospitalist team patient was taken back to the operative suite.? Patient underwent anesthesia per the anesthesia department.? Once appropriately anesthetized patient was placed on a fracture [place] table.? Patient was appropriately secured to the bed.? All bony prominences were well-padded.? At this point time patient?received appropriate preoperative antibiotics.? Final timeout was performed.? Prior to beginning surgery a standard closed?reduction maneuver was placed on the [place] table and large C-arm was brought in.? After performing a closed?reduction maneuver there was able to achieve satisfactory?reduction of?right intertrochanteric femur fracture.? Fracture site did not extend into the subtrochanteric?region as?result plan was for a short nail.?? This point time the?right lower extremity was then prepped and draped in standard orthopedic fashion. A standard longitudinal incision was made just proximal to the greater?trochanter?roughly 4 cm in length sharp scalpel vision was made through skin and subcutaneous tissue.? I then utilized a blunt [place] to split? fascia and mobilized directly down to the greater?trochanter.? I then inserted my starting guidewire which was placed appropriate starting position the tip of the greater?trochanter.? This was advanced in AP and lateral films to be in center center position and advanced to the level lesser?trochanter.? This was confirmed to be in center center position on AP and lateral imaging.? Once this was done I then introduced my opening?reamer which was then subsequently guide pin?removed.? I selected a 11 mm x 180 mm x 125 degree. At this point time the nail was then loaded onto the [employer] gamma?trochanteric nail guide.? This was placed within the canal and confirmed with XR and the setscrew was then gently placed not locked.? The nail was then impacted to appropriate depth .? At this point time I then inserted my lag screw guide and subsequently made a small incision through skin and subcutaneous tissue splitting the IT band longitudinally and the guide was placed directly onto bone.? Next I then subsequently placed the guidewire in center center position in the head with an appropriate tip to apex distance this was confirmed with multiple orthogonal images.? Once I was satisfied with my planned lag screw placement I then measured which was?110?mm.? I then set my cannulated drill and subsequently?reamed this into the head at appropriate depth.? I then had my?rep open the 10.5 mm x 110 mm lag screw which was then opened on the back table and subsequently screwed into place over my cannulated drill guide.? This was placed with excellent tip to apex distance.? Next I then utilized the compressing device and subsequently compressed my fracture after I let off traction.? This had excellent fracture compression and opposition and closing down to my fracture line.? Next I then locked the nail by locking my setscrew.? This point time the guidewire as well as the sleeve was then?removed.? Next I plan for statically locking the nail distally.? This triple sleeve was then placed a small stab incision was made blunt dissection directly down to bone and the guide sleeve was placed and locked directly onto the bone.? I then inserted the drill bit and subsequently drilled bicortically measured appropriate length screw and then placed a 40?mm distal interlocking screw and had excellent fixation was appropriate length.? This point time is completed my construct I?remove the outer jig and took final images of AP and lateral of the?right intertrochanteric femur fracture which showed stable?reduction and stable fixation.? Incision was then thoroughly irrigated.? Hemostasis was maintained with electrocautery.? I then once again thoroughly irrigated the incisions and then subsequently closed in layered fashion of 0 Vicryl 2-0 Vicryl and jarad.? Silverlon dressings applied.? Patient was then awakened from anesthesia transported onto the hospital bed and taken to PACU in stable condition.? Patient tolerated procedure without complications. Disposition: Patient taken to PACU in stable condition.? Postoperatively,? Patient to?receive appropriate discharge instructions as well as pain medication DVT prophylaxis postoperatively.? Patient?will be allowed weightbearing as tolerated?right lower extremity.? Will?receive appropriate postoperative antibiotics, PT/OT.? Patient to follow-up in the orthopedic office in 2 weeks.? Patients family understands and agrees with current plan.? All questions answered.
--- NOTE | 2023-02-28 10:25 | ANE.PACU2 ---
Inpatient post-anesthesia follow up: Airway intact: Yes Vital signs: Temperature 97.6 F Pulse Rate 93 Respiratory Rate 20 Blood Pressure 109/51 Pulse Oximetry 94 Oxygen Delivery Me thod Nasal Cannula Oxygen Flow Rate 3 Fraction of Inspir ed Oxygen Hydration adequate: Yes Nausea and vomiting: No Pain level: 1 Mental status: Baseline
--- NOTE | 2023-02-28 13:59 | PM.PN ---
Subjective Subjective: patient was seen this morning, after surgery, patient sister and niece at bedside, he is alerto to person, not place, not time, he follow commands but is encephalopathic, likely still under the effect of anestehtic and pain medication, he is is in a sling, family is at bedside, they are upset with [facility] snf, they reported when they came to see him he was on the floor, and they were concerns that all he was getting was morphine, they were concerned he was kept in his room on pain medications, and no one checked up on him, they would like marilyn to go to a different snf Vitals/I&O/Wt Last Vital Signs Temp 97.6 F 02/28/23 12:43 Pulse 74 02/28/23 12:43 Resp 16 02/28/23 12:43 BP 106/58 02/28/23 12:43 Pulse Ox 97 02/28/23 12:43 O2 Del Method Room Air 02/28/23 12:43 O2 Flow Rate 3 02/28/23 10:26 02/27/23 02/28/23 02/28/23 22:59 06:59 14:59 Intake Total 480 / 480 200 / 200 Output Total 325 / 325 600 / 600 Balance 480 / 480 -325 / 155 -400 / -400 Weight last 48 hrs Weight 76.022 kg Weight 76.294 kg Weight 78.018 kg Physical Exam Const: COMMON NORMALS: no acute distress Resp: COMMON NORMALS: normal respiratory effort, No retractions, No use of accessory muscles and clear to auscultation bilaterally AUSCULTATION: clear to auscultation bilaterally Cardio: COMMON NORMALS: regular rate, regular rhythm, S1 normal heart sound present and S2 normal heart sound present RATE: regular rate RHYTHM: regular rhythm HEART SOUNDS: S1 normal heart sound present and S2 normal heart sound present GI: COMMON NORMALS: Normal to inspection, nondistended, normoactive bowel sounds present and non-tender Extremity: COMMON NORMALS: no pedal edema Urinary Catheter Management: Ray: Cath Placed During This Visit: yes Urinary Catheter Date of Insertion: 02/28/23 Urinary Catheter Time of Insertion: 08:30 Data 02/27/23 18:39 02/27/23 18:39 A&P Assessment and plan (1) Closed fracture of right hip: s/p surgery Orthopedics consult, lovenox for dvt prophylaxis home morphine for pain control pt ot Qualifiers: Encounter type: initial encounter Qualified Code(s): S72.001A - Fracture of unspecified part of neck of right femur, initial encounter for closed fracture (2) Right clavicle fracture: -currently in a sling (3) COVID-19: Associated with chronic hypoxic respiratory failure Isolation precautions (4) Lung cancer: Medical records reviewed and appreciated Recently started on hospice, focus on quality of life No further disease-cancer oriented treatments Continue home pain medications, anticipate possible higher morphine tolerance Supportive care Qualifiers: Laterality: unspecified laterality Lung location: unspecified part of lung Qualified Code(s): C34.90 - Malignant neoplasm of unspecified part of unspecified bronchus or lung (5) Type 2 diabetes mellitus: SSI (6) COPD (chronic obstructive pulmonary disease): Not in acute exacerbation Breathing treatments as needed (7) Anemia: Monitor blood counts, HGB currently 8.9 Plan DVT ppx: lovenox Attestations Medical Necessity Statement*: patient requires hospitalization for hip surgery after fall, and fracture, pain control, patient on hospice Coding Level of Care Code Acute Code for Chg Fwd Diagnoses Closed fracture of right hip S72.001A Encounter type: initial encounter Right clavicle fracture S42.001A COVID-19 U07.1 Lung cancer C34.90 Laterality: unspecified laterality Lung location: unspecified part of lung Type 2 diabetes mellitus E11.9 COPD (chronic obstructive pulmonary disease) J44.9 Anemia D64.9
[2023-02-28] MEDS: ipratropium-albuterol 3 mL Neb INHALATION ×2 (14:41→20:09)
[2023-02-28] MEDS: acetaminophen 500 mg Tablet 1000 MG PO ×2 (15:11→21:41)
[2023-02-28 15:13] LABS: Glucose Point of Care 358 mg/dL (70-110)
[2023-02-28 15:13] LABS: Glucose Point of Care 309 mg/dL (70-110)
[2023-02-28] MEDS: tranexamic acid 1,000 MG/100 ML PREMIX 600 MG IV (16:16)
[2023-02-28] MEDS: insulin lispro 100 unit/1 mL SUBCUT ×2 (16:17→21:40)
[2023-02-28 17:04] LABS: Glucose Point of Care 389 mg/dL (70-110)
[2023-02-28] MEDS: chlorhexidine gluconate 0.12% Btl 473 mL 30 ML MUCOUS MEM (18:13)
[2023-02-28] MEDS: calcium carb-vit d 600mg/400unit 1 Tablet 1 EACH PO (18:16)
[2023-02-28] MEDS: iron polysaccharide complex 150 mg Capsule PO (18:16)
[2023-02-28] MEDS: BuSPIRONE 10 mg Tablet 7.5 MG PO (18:16)
[2023-02-28] MEDS: docusate sodium 100 mg Capsule PO (18:16)
[2023-02-28] MEDS: mupirocin oint 22 gm 1 APPLIC NASAL (18:17)
[2023-02-28] MEDS: budesonide 0.5 mg/2 mL Neb INHALATION (20:09)
[2023-02-28 20:34] LABS: Glucose Point of Care 407 mg/dL (70-110)
[2023-02-28] MEDS: tamsulosin 0.4 mg Capsule PO (21:40)
[2023-02-28] MEDS: atorvastatin 40 mg Tablet 80 MG PO (21:41)
[2023-02-28] MEDS: finasteride 5 mg Tablet PO (21:41)
[2023-03-01] VITALS (19 sets, daily range): BP systolic 86–136; BP diastolic 40–65; PULSE 64–81; RESP 14–18; TEMP 36.3–36.6; O2SAT 91–98; BMI 23.3
[2023-03-01 05:13] LABS: Basophils % 0.1 %; Hematocrit 22.7 % (37-53); Lymphocytes # 0.3 10^3/uL (0.8-4.8); Lymphocytes % 4.2 %; Mean Corpuscular HGB Conc 30.4 g/dL (30-55); Mean Corpuscular Volume 92.3 fl (82-101); Mean Platelet Volume 10.6 fL (7.4-10.4); Monocytes # 0.2 10^3/uL (0.2-0.9); Monocytes % 3.4 %; Neutrophils # 6.57 10^3/uL (1.8-7.7); Neutrophils % 91.7 %; Nucleated Red Blood Cells % 0 %; Platelet Count 161 10^3/cmm (157-399); Red Blood Count 2.46 10^6/uL (3.85-5.65); Red Cell Distribution Width 14.1 % (12.1-15.1); White Blood Count 7.16 10^3/uL (3.29-11.43)
[2023-03-01 05:31] LABS: Anion Gap 14.3 (5-19); Blood Urea Nitrogen 35 mg/dL (8-23); Carbon Dioxide 24 mmol/L (22-29); Chloride 105 mmol/L (98-107); Glucose 373 mg/dL (65-115); Osmolality Calculated 311 mOsm/kg (285-295); Potassium 4.3 mmol/L (3.5-5.1); Sodium 139 mmol/L (136-145)
[2023-03-01] MEDS: ceFAZolin 2,000 MG in sodium chloride 0.9% (plus) 50 ML 100 MG IV (05:53)
[2023-03-01] MEDS: acetaminophen 500 mg Tablet 1000 MG PO ×3 (05:55→20:44)
[2023-03-01 06:30] LABS: Glucose Point of Care 464 mg/dL (70-110)
[2023-03-01] MEDS: enoxaparin 30 mg/0.3 mL Syringe SUBCUT (08:13)
[2023-03-01] MEDS: calcium carb-vit d 600mg/400unit 1 Tablet 1 EACH PO ×2 (08:14→17:19)
[2023-03-01] MEDS: docusate sodium 100 mg Capsule PO ×2 (08:14→17:19)
[2023-03-01] MEDS: morphine ER (12 HR) 30 mg tablet PO ×3 (08:14→23:06)
[2023-03-01] MEDS: multivitamin therapeutic Tablet 1 TAB PO (08:14)
[2023-03-01] MEDS: clopidogrel 75 mg Tablet PO (08:14)
[2023-03-01] MEDS: BuSPIRONE 10 mg Tablet 7.5 MG PO ×2 (08:15→17:19)
[2023-03-01] MEDS: chlorhexidine gluconate 0.12% Btl 473 mL 30 ML MUCOUS MEM ×4 (08:16→20:20)
[2023-03-01] MEDS: aspirin 81 mg EC Tablet PO (08:16)
[2023-03-01] MEDS: iron polysaccharide complex 150 mg Capsule PO ×2 (08:16→17:19)
[2023-03-01] MEDS: escitalopram 10 mg Tablet 20 MG PO (08:16)
[2023-03-01] MEDS: pantoprazole DR 40 mg Tablet PO (08:16)
[2023-03-01] MEDS: mupirocin oint 22 gm 1 APPLIC NASAL ×2 (08:16→17:19)
[2023-03-01] MEDS: metoprolol succinate ER (24 HR) 50 mg Tablet PO (08:16)
[2023-03-01] MEDS: insulin lispro 100 unit/1 mL SUBCUT ×4 (08:19→21:44)
[2023-03-01] MEDS: budesonide 0.5 mg/2 mL Neb INHALATION ×2 (09:15→20:54)
[2023-03-01] MEDS: ipratropium-albuterol 3 mL Neb INHALATION ×3 (09:15→20:54)
[2023-03-01] MEDS: insulin glargine 100 units/1 mL 10 UNIT SUBCUT (10:22)
[2023-03-01 11:32] LABS: Glucose Point of Care 559 mg/dL (70-110)
--- NOTE | 2023-03-01 13:12 | PM.PN ---
Subjective Subjective: Patient was seen this morning, hemoglobin 6.9, plans on transfusing 1 unit PRBC, blood sugars were elevated throughout the night, needs aggressive blood sugar monitoring, he was examined ? I had extensive discussion with him about his goals of care, he remains a DNR/DNI he does not want to have aggressive interventions he does not want chest compressions he does not want to be intubated ? He tells me he does not want to go back to [facility] ? In terms of his overall goals of care, options I discussed with him was going back to senior care facility on physical therapy getting skilled care, for his hip fracture, ? The next option I discussed was going back to senior care facility on hospice care, which she would not get physical therapy, the goal would be pain control and close monitoring, ? Discussed risk and benefits of all options, he voiced understanding, all questions answered, shared decision making, ? He tells me he wants to go back to senior care facility on hospice, however he does not want to go to [facility], will try [facility] in [place], he is agreeable, ? I discussed discussed with him what what his goals of care were here in the hospital, he wants to continue hospice while he is here in the hospital, Vitals/I&O/Wt Last Vital Signs Temp 97.6 F 03/01/23 12:45 Pulse 76 03/01/23 12:45 Resp 16 03/01/23 12:45 BP 91/51 03/01/23 12:45 Pulse Ox 93 03/01/23 12:45 O2 Del Method Nasal Cannula 03/01/23 11:58 O2 Flow Rate 3 03/01/23 09:16 02/28/23 03/01/23 03/01/23 22:59 06:59 14:59 Intake Total 1732.5 / 1932.5 530 / 2462.5 1176.25 / 1176.25 Output Total 550 / 1150 800 / 1950 Balance 1182.5 / 782.5 -270 / 512.5 1176.25 / 1176.25 Weight last 48 hrs Weight 76.022 kg Weight 76.022 kg Weight 76.294 kg Weight 78.018 kg Physical Exam Narrative: Multiple bruises present, right brow, ? Right shoulder pain, swelling, bruising, extending to the posterior shoulder Const: COMMON NORMALS: no acute distress and patient oriented x3 Resp: COMMON NORMALS: normal respiratory effort, No retractions, No use of accessory muscles and clear to auscultation bilaterally AUSCULTATION: clear to auscultation bilaterally Cardio: COMMON NORMALS: regular rate, regular rhythm, S1 normal heart sound present and S2 normal heart sound present RATE: regular rate RHYTHM: regular rhythm HEART SOUNDS: S1 normal heart sound present and S2 normal heart sound present GI: COMMON NORMALS: Normal to inspection, nondistended, normoactive bowel sounds present and non-tender Extremity: COMMON NORMALS: no pedal edema Neuro: COMMON NORMALS: patient oriented x3 Psych: COMMON NORMALS: mental status grossly normal Urinary Catheter Management: Ray: Cath Placed During This Visit: yes Reason for Continuing Indwelling Catheter: Perioperative Use in Selected Surgeries Urinary Catheter Date of Insertion: 02/28/23 Urinary Catheter Time of Insertion: 08:30 Data 03/01/23 04:39 03/01/23 04:39 A&P Assessment and plan (1) Closed fracture of right hip: s/p surgery Orthopedics consult, lovenox for dvt prophylaxis home morphine for pain control Patient wants to continue hospice, discharged to senior care facility on hospice Qualifiers: Encounter type: initial encounter Qualified Code(s): S72.001A - Fracture of unspecified part of neck of right femur, initial encounter for closed fracture (2) Right clavicle fracture: -currently in a sling (3) COVID-19: Associated with chronic hypoxic respiratory failure Isolation precautions (4) Lung cancer: Medical records reviewed and appreciated Recently started on hospice, focus on quality of life No further disease-cancer oriented treatments Continue home pain medications, anticipate possible higher morphine tolerance Supportive care Qualifiers: Laterality: unspecified laterality Lung location: unspecified part of lung Qualified Code(s): C34.90 - Malignant neoplasm of unspecified part of unspecified bronchus or lung (5) Type 2 diabetes mellitus: SSI (6) COPD (chronic obstructive pulmonary disease): Not in acute exacerbation Breathing treatments as needed (7) Anemia: Monitor blood counts, hemoglobin 6.9 transfuse 1 unit PRBC Plan DVT ppx: lovenox Attestations Medical Necessity Statement*: Patient requires hospitalization for hip fracture, clavicular fracture, on hospice, going to senior care facility on hospice Coding Level of Care Code Acute Code for Chg Fwd Diagnoses Closed fracture of right hip S72.001A Encounter type: initial encounter Right clavicle fracture S42.001A COVID-19 U07.1 Lung cancer C34.90 Laterality: unspecified laterality Lung location: unspecified part of lung Type 2 diabetes mellitus E11.9 COPD (chronic obstructive pulmonary disease) J44.9 Anemia D64.9
[2023-03-01] MEDS: insulin lispro 100 unit/1 mL 10 UNIT SUBCUT (13:23)
--- NOTE | 2023-03-01 13:23 | P.PN_ITS ---
Subjective Subjective: Patient seen and examined he is currently receiving PRBC today per primary. His incision site is clean dry and intact. He is up and eating his lunch today. Pain is controlled medications. Per primary as well as patient wishing to return back to hospice. Vitals/I&O/Wt Last Vital Signs Temp 97.6 F 03/01/23 12:45 Pulse 76 03/01/23 12:45 Resp 16 03/01/23 12:45 BP 91/51 03/01/23 12:45 Pulse Ox 93 03/01/23 12:45 O2 Del Method Nasal Cannula 03/01/23 11:58 O2 Flow Rate 3 03/01/23 09:16 02/28/23 03/01/23 03/01/23 22:59 06:59 14:59 Intake Total 1732.5 / 1932.5 530 / 2462.5 1176.25 / 1176.25 Output Total 550 / 1150 800 / 1950 Balance 1182.5 / 782.5 -270 / 512.5 1176.25 / 1176.25 Weight last 48 hrs Weight 167 lb 9.6 oz Weight 167 lb 9.6 oz Weight 168 lb 3.2 oz Weight 172 lb Physical Exam Narrative: Examination right shoulder: Examination right shoulder sling on in place bruising ecchymosis around the right distal clavicle clavicle is tender to palpation. Decreased range of motion secondary to pain Examination the right hip dressings on in place is clean dry and intact is able to wiggle his toes plantarflex and dorsiflex ankle sensations intact to light touch distally. Compartments are soft compressible. Able to tolerate gentle hip range of motion with no pain. Negative logroll. Urinary Catheter Management: Ray: Cath Placed During This Visit: yes Reason for Continuing Indwelling Catheter: Perioperative Use in Selected Surgeries Urinary Catheter Date of Insertion: 02/28/23 Urinary Catheter Time of Insertion: 08:30 Data 03/02/23 03:00 03/02/23 03:00 Other Labs: A.m. labs 03/01/2023 hemoglobin 6 9 WBC count 7.16 Xray Ortho: My impression: Postoperative x-rays demonstrate a stable fixation right hip intertrochanteric femur fracture with cephalomedullary nail. A&P Assessment and plan (1) Right clavicle fracture: (2) Closed fracture of right hip: Qualifiers: Encounter type: initial encounter Qualified Code(s): S72.001A - Fracture of unspecified part of neck of right femur, initial encounter for closed fracture (3) Anemia: Plan Resume diet Labs reviewed?patient receiving PRBC per primary X-rays reviewed Pain control DVT prophylaxis per primary?discussed with primary and given patient's on hospic e we will plan to discontinue DVT prophylaxis postoperatively after the hospital Complete postoperative antibiotics Weight-bear as tolerated right lower extremity PT/OT Change dressing as needed Orthopedics to continue to follow Attestations Medical Necessity Statement*: Ongoing care right hip fracture s/p surgery Coding Level of Care Code Acute Code for Chg Fwd Diagnoses Right clavicle fracture S42.001A Closed fracture of right hip S72.001A Encounter type: initial encounter Anemia D64.9 Time Spent (min) 20
[2023-03-01 17:10] LABS: Glucose Point of Care 447 mg/dL (70-110)
[2023-03-01 17:10] LABS: Glucose Point of Care 319 mg/dL (70-110)
[2023-03-01 17:10] LABS: Glucose Point of Care 235 mg/dL (70-110)
[2023-03-01 18:18] LABS: Hematocrit 24.9 % (37-53)
[2023-03-01] MEDS: atorvastatin 40 mg Tablet 80 MG PO (20:19)
[2023-03-01] MEDS: finasteride 5 mg Tablet PO (20:19)
[2023-03-01] MEDS: tamsulosin 0.4 mg Capsule PO (20:19)
[2023-03-01 20:53] LABS: Glucose Point of Care 163 mg/dL (70-110)
[2023-03-02] VITALS (11 sets, daily range): BP systolic 116–140; BP diastolic 52–69; PULSE 68–82; RESP 15–19; TEMP 36.3–37.1; O2SAT 91–97; BMI 23.3
[2023-03-02 04:36] LABS: Basophils % 0.1 %; Eosinophils % 0.1 %; Hematocrit 25.5 % (37-53); Lymphocytes # 0.4 10^3/uL (0.8-4.8); Lymphocytes % 3.9 %; Mean Corpuscular Hemoglobin 28.2 pg (27-33); Mean Corpuscular Volume 91.1 fl (82-101); Mean Platelet Volume 11.6 fL (7.4-10.4); Monocytes # 0.5 10^3/uL (0.2-0.9); Monocytes % 4.8 %; Neutrophils # 9.06 10^3/uL (1.8-7.7); Neutrophils % 90.2 %; Nucleated Red Blood Cells % 0 %; Platelet Count 166 10^3/cmm (157-399); Red Cell Distribution Width 14.6 % (12.1-15.1); White Blood Count 10.04 10^3/uL (3.29-11.43)
[2023-03-02 04:54] LABS: Blood Urea Nitrogen 30 mg/dL (8-23); Calcium 9.4 mg/dL (8.5-10.5); Carbon Dioxide 26 mmol/L (22-29); Chloride 109 mmol/L (98-107); Glucose 138 mg/dL (65-115); Osmolality Calculated 304 mOsm/kg (285-295); Sodium 143 mmol/L (136-145)
[2023-03-02] MEDS: acetaminophen 500 mg Tablet 1000 MG PO ×3 (05:18→20:52)
[2023-03-02] MEDS: enoxaparin 30 mg/0.3 mL Syringe SUBCUT (06:44)
[2023-03-02] MEDS: escitalopram 10 mg Tablet 20 MG PO (06:45)
[2023-03-02] MEDS: pantoprazole DR 40 mg Tablet PO (06:45)
[2023-03-02] MEDS: metoprolol succinate ER (24 HR) 50 mg Tablet PO (06:45)
[2023-03-02] MEDS: morphine ER (12 HR) 30 mg tablet PO ×3 (06:45→22:48)
[2023-03-02 06:51] LABS: Glucose Point of Care 202 mg/dL (70-110)
--- NOTE | 2023-03-02 08:16 | PM.PN ---
Subjective Subjective: patient on Covid protocol Vitals/I&O/Wt Last Vital Signs Temp 97.8 F 03/02/23 07:50 Pulse 82 03/02/23 07:50 Resp 19 H 03/02/23 07:50 BP 134/64 03/02/23 07:50 Pulse Ox 91 03/02/23 07:50 O2 Del Method Nasal Cannula 03/02/23 07:50 O2 Flow Rate 3 03/01/23 20:54 03/01/23 03/02/23 03/02/23 22:59 06:59 14:59 Intake Total 600 / 2366.25 530 / 2896.25 Output Total 600 / 600 1200 / 1800 Balance 0 / 1766.25 -670 / 1096.25 Weight last 48 hrs Weight 167 lb 9.6 oz Weight 167 lb 9.6 oz Physical Exam Urinary Catheter Management: Ray: Cath Placed During This Visit: yes Reason for Continuing Indwelling Catheter: Other Urinary Catheter Date of Insertion: 02/28/23 Urinary Catheter Time of Insertion: 08:30 Data 03/02/23 03:00 03/02/23 03:00 A&P Assessment and plan (1) Closed fracture of right hip: Please call with any concerns. Will sign off. OK to D/C from Orthopedic standpoint Qualifiers: Encounter type: initial encounter Qualified Code(s): S72.001A - Fracture of unspecified part of neck of right femur, initial encounter for closed fracture Attestations Medical Necessity Statement*: per primary service Coding Level of Care Code Acute Code for Chg Fwd Diagnoses Closed fracture of right hip S72.001A Encounter type: initial encounter
[2023-03-02] MEDS: calcium carb-vit d 600mg/400unit 1 Tablet 1 EACH PO ×2 (08:19→17:26)
[2023-03-02] MEDS: clopidogrel 75 mg Tablet PO (08:19)
[2023-03-02] MEDS: docusate sodium 100 mg Capsule PO ×2 (08:19→17:25)
[2023-03-02] MEDS: multivitamin therapeutic Tablet 1 TAB PO (08:19)
[2023-03-02] MEDS: BuSPIRONE 10 mg Tablet 7.5 MG PO ×2 (08:19→17:25)
[2023-03-02] MEDS: iron polysaccharide complex 150 mg Capsule PO ×2 (08:19→17:25)
[2023-03-02] MEDS: aspirin 81 mg EC Tablet PO (08:19)
[2023-03-02] MEDS: insulin glargine 100 units/1 mL 10 UNIT SUBCUT ×2 (08:20→17:24)
[2023-03-02] MEDS: insulin lispro 100 unit/1 mL SUBCUT ×3 (08:20→17:25)
[2023-03-02] MEDS: chlorhexidine gluconate 0.12% Btl 473 mL 30 ML MUCOUS MEM ×2 (08:21→20:53)
[2023-03-02] MEDS: mupirocin oint 22 gm 1 APPLIC NASAL (08:21)
[2023-03-02] MEDS: ipratropium-albuterol 3 mL Neb INHALATION ×3 (09:03→21:30)
[2023-03-02] MEDS: budesonide 0.5 mg/2 mL Neb INHALATION ×2 (09:15→21:30)
--- NOTE | 2023-03-02 09:43 | PC.NURSE ---
Pt has oral implants that are rubbing sores on his gums. Plan is to observe for now per Dr. Marquis.
--- NOTE | 2023-03-02 10:38 | PC.PT ---
Per chart review at this time patient is returning to hospice care at [facility] facility, therefore not receiving physical therapy, unless new orders are received.
--- NOTE | 2023-03-02 11:40 | PM.PN ---
Subjective Subjective: Patient was seen this morning, he denies any pain, alert oriented, following all commands, his blood sugars were elevated yesterday afternoon, necessitating his diet change, he would like some cornflakes this morning, Vitals/I&O/Wt Last Vital Signs Temp 97.8 F 03/02/23 07:50 Pulse 80 03/02/23 08:00 Resp 16 03/02/23 08:00 BP 134/64 03/02/23 07:50 Pulse Ox 97 03/02/23 08:00 O2 Del Method Nasal Cannula 03/02/23 08:00 O2 Flow Rate 4 03/02/23 08:00 03/01/23 03/02/23 03/02/23 22:59 06:59 14:59 Intake Total 600 / 2366.25 530 / 2896.25 480 / 480 Output Total 600 / 600 1200 / 1800 Balance 0 / 1766.25 -670 / 1096.25 480 / 480 Weight last 48 hrs Weight 76.022 kg Weight 76.022 kg Physical Exam Const: COMMON NORMALS: no acute distress and patient oriented x3 Resp: COMMON NORMALS: normal respiratory effort, No retractions, No use of accessory muscles and clear to auscultation bilaterally AUSCULTATION: clear to auscultation bilaterally Cardio: COMMON NORMALS: regular rate, regular rhythm, S1 normal heart sound present and S2 normal heart sound present RATE: regular rate RHYTHM: regular rhythm HEART SOUNDS: S1 normal heart sound present and S2 normal heart sound present GI: COMMON NORMALS: Normal to inspection, nondistended, normoactive bowel sounds present and non-tender Extremity: COMMON NORMALS: no pedal edema Neuro: COMMON NORMALS: patient oriented x3 Psych: COMMON NORMALS: mental status grossly normal Urinary Catheter Management: Ray: Cath Placed During This Visit: yes Reason for Continuing Indwelling Catheter: Other Urinary Catheter Date of Insertion: 02/28/23 Urinary Catheter Time of Insertion: 08:30 Data 03/02/23 03:00 03/02/23 03:00 A&P Assessment and plan (1) Closed fracture of right hip: s/p surgery Orthopedics consult, lovenox for dvt prophylaxis home morphine for pain control Patient wants to continue hospice, discharged to halfway facility on hospice Qualifiers: Encounter type: initial encounter Qualified Code(s): S72.001A - Fracture of unspecified part of neck of right femur, initial encounter for closed fracture (2) Right clavicle fracture: -currently in a sling (3) COVID-19: Associated with chronic hypoxic respiratory failure Isolation precautions (4) Lung cancer: Medical records reviewed and appreciated Recently started on hospice, focus on quality of life No further disease-cancer oriented treatments Continue home pain medications, anticipate possible higher morphine tolerance Supportive care Qualifiers: Laterality: unspecified laterality Lung location: unspecified part of lung Qualified Code(s): C34.90 - Malignant neoplasm of unspecified part of unspecified bronchus or lung (5) Type 2 diabetes mellitus: SSI (6) COPD (chronic obstructive pulmonary disease): Not in acute exacerbation Breathing treatments as needed (7) Anemia: Hemoglobin 7.9 monitor Plan DVT ppx: lovenox Attestations Medical Necessity Statement*: Patient requires hospitalization for hip fracture, anemia Diagnoses Closed fracture of right hip S72.001A Encounter type: initial encounter Right clavicle fracture S42.001A COVID-19 U07.1 Lung cancer C34.90 Laterality: unspecified laterality Lung location: unspecified part of lung Type 2 diabetes mellitus E11.9 COPD (chronic obstructive pulmonary disease) J44.9 Anemia D64.9
[2023-03-02 12:40] LABS: Glucose Point of Care 166 mg/dL (70-110)
--- NOTE | 2023-03-02 16:02 | PC.PT ---
Discussed patient with both orthopedist, and hospitalist, due to unusual circumstances, both recommended that I check with patient, and see if he was interested in physical therapy, patient nurse relayed that patient was interested. On entering room, patient sitting up in bed, with 3 family members present, who are concerned about patient current confusion, discussed possibilities of anesthesia, pain medicines, etc. . Discussed with family that purpose of visit was patient education, on recommendations, to decrease pain, and increase physical abilities by beginning with gentle range of motion to right hip, and functional activities, such as out of bed, for bedside commode usage. Provided written exercise program to patient, and patient demonstrated ability to perform gentle heel slides, ankle pumps, and gluteal squeezes, but declined out of bed activities, despite encouragement. Patient's sister stated that patient could not be admitted to [facility] if he is on physical therapy, probably related to hospice somehow. Patient states he will continue to do these frequently, and was also moving right upper extremity well in the functional range, and appeared in no pain, during this visit, and was encouraged to continue frequent motion in tolerable range, and family members verbalized understanding as well, current plan is for patient to go to facility on Saturday, no further visits planned at this time.
[2023-03-02 16:13] LABS: Glucose Point of Care 144 mg/dL (70-110)
[2023-03-02] MEDS: atorvastatin 40 mg Tablet 80 MG PO (20:52)
[2023-03-02] MEDS: tamsulosin 0.4 mg Capsule PO (20:52)
[2023-03-02] MEDS: finasteride 5 mg Tablet PO (20:52)
[2023-03-02 21:35] LABS: Glucose Point of Care 66 mg/dL (70-110)
--- NOTE | 2023-03-02 21:37 | PC.NURSE ---
Wilkinson juice administered to pt for blood sugar lvl.
[2023-03-02 22:01] LABS: Glucose Point of Care 84 mg/dL (70-110)
[2023-03-02 23:31] LABS: Glucose Point of Care 115 mg/dL (70-110)
[2023-03-03] VITALS (10 sets, daily range): BP systolic 114–159; BP diastolic 54–69; PULSE 66–85; RESP 16–18; TEMP 36.8–37.3; O2SAT 92–96; BMI 25.1
[2023-03-03 04:13] LABS: Basophils % 0.2 %; Eosinophils # 0.3 10^3/uL (0.0-0.8); Eosinophils % 2.6 %; Hematocrit 26.5 % (37-53); Lymphocytes # 0.7 10^3/uL (0.8-4.8); Lymphocytes % 6.2 %; Mean Corpuscular HGB Conc 30.9 g/dL (30-55); Mean Corpuscular Hemoglobin 27.9 pg (27-33); Mean Corpuscular Volume 90.1 fl (82-101); Mean Platelet Volume 10.3 fL (7.4-10.4); Monocytes # 0.8 10^3/uL (0.2-0.9); Monocytes % 6.7 %; Neutrophils # 9.63 10^3/uL (1.8-7.7); Neutrophils % 83.2 %; Nucleated Red Blood Cells % 0 %; Platelet Count 227 10^3/cmm (157-399); Red Blood Count 2.94 10^6/uL (3.85-5.65); Red Cell Distribution Width 14.9 % (12.1-15.1); White Blood Count 11.58 10^3/uL (3.29-11.43)
[2023-03-03 04:36] LABS: Anion Gap 11.9 (5-19); Blood Urea Nitrogen 23 mg/dL (8-23); Calcium 9.5 mg/dL (8.5-10.5); Carbon Dioxide 26 mmol/L (22-29); Chloride 109 mmol/L (98-107); Creatinine Clr Calc Pharmacy 79.3216; Glucose 84 mg/dL (65-115); Osmolality Calculated 299 mOsm/kg (285-295); Potassium 3.9 mmol/L (3.5-5.1); Sodium 143 mmol/L (136-145)
[2023-03-03] MEDS: acetaminophen 500 mg Tablet 1000 MG PO ×3 (05:19→20:48)
[2023-03-03] MEDS: morphine ER (12 HR) 30 mg tablet PO (06:28)
[2023-03-03] MEDS: pantoprazole DR 40 mg Tablet PO (06:28)
[2023-03-03] MEDS: metoprolol succinate ER (24 HR) 50 mg Tablet PO (06:28)
[2023-03-03] MEDS: escitalopram 10 mg Tablet 20 MG PO (06:28)
[2023-03-03] MEDS: enoxaparin 30 mg/0.3 mL Syringe SUBCUT (06:29)
[2023-03-03 06:35] LABS: Glucose Point of Care 101 mg/dL (70-110)
[2023-03-03] MEDS: budesonide 0.5 mg/2 mL Neb INHALATION ×2 (08:06→21:28)
[2023-03-03] MEDS: ipratropium-albuterol 3 mL Neb INHALATION ×3 (08:06→21:29)
[2023-03-03] MEDS: mupirocin oint 22 gm 1 APPLIC NASAL (08:43)
[2023-03-03] MEDS: iron polysaccharide complex 150 mg Capsule PO (08:45)
[2023-03-03] MEDS: aspirin 81 mg EC Tablet PO (08:45)
[2023-03-03] MEDS: multivitamin therapeutic Tablet 1 TAB PO (08:45)
[2023-03-03] MEDS: clopidogrel 75 mg Tablet PO (08:45)
[2023-03-03] MEDS: docusate sodium 100 mg Capsule PO (08:45)
[2023-03-03] MEDS: chlorhexidine gluconate 0.12% Btl 473 mL 30 ML MUCOUS MEM ×3 (08:45→20:52)
[2023-03-03] MEDS: calcium carb-vit d 600mg/400unit 1 Tablet 1 EACH PO (08:45)
[2023-03-03] MEDS: BuSPIRONE 10 mg Tablet 7.5 MG PO (08:46)
[2023-03-03 11:34] LABS: Glucose Point of Care 106 mg/dL (70-110)
--- NOTE | 2023-03-03 15:20 | P.PN_ITS ---
Subjective Subjective: Patient was seen this morning, ? Patient's family is at bedside, ? Patient tells me that he is feeling better, he thinks that the morphine dose is too high as it is making him have episodes of intermittent confusion, it is helping with his pain, ? We discussed his goals of care, he tells me that now he wants to go to [facility], skilled, he wants to get physical therapy, he does not want to go to the [facility] on hospice ? We discussed the risk and benefits of hospice, he voiced understanding, all questions answered, declined hospice for now, ? Given his family's worry on hospice is at goal just leave me without the appropriate care, they will leave me there and just treat my pain and not take care of me is his concern. ? He tells me that [facility] did not give him the help that he needed, family tells me that he was found on the floor, without the appropriate care that he needed, and old they were doing was just medicating him, he was so thirsty when he was here in the hospital they were worried that he was not fed as he was on hospice, ? I discussed the goals of hospice with family in detail, however for now patient does not want to go to the [facility] facility on hospice, he would like to go on a scale level needed, he wants to receive PT OT for his hip, and is fracture, ? After discussing risk benefits, he voiced understanding, all consents are, agreed to proceed, ? We will decrease his morphine dose to 15 mg p.o. 3 times daily Vitals/I&O/Wt Last Vital Signs Temp 98.3 F 03/03/23 12:58 Pulse 75 03/03/23 13:36 Resp 16 03/03/23 13:36 BP 114/54 03/03/23 12:58 Pulse Ox 96 03/03/23 13:36 O2 Del Method Nasal Cannula 03/03/23 13:36 O2 Flow Rate 3 03/03/23 13:36 03/03/23 03/03/23 03/03/23 06:59 14:59 22:59 Intake Total 1020 / 1020 Output Total 780 / 1430 Balance -780 / -590 1020 / 1020 Weight last 48 hrs Weight 81.647 kg Weight 76.022 kg Physical Exam Const: COMMON NORMALS: no acute distress and patient oriented x3 Resp: COMMON NORMALS: normal respiratory effort, No retractions, No use of accessory muscles and clear to auscultation bilaterally AUSCULTATION: clear to auscultation bilaterally Cardio: COMMON NORMALS: regular rate, regular rhythm, S1 normal heart sound present and S2 normal heart sound present RATE: regular rate RHYTHM: regular rhythm HEART SOUNDS: S1 normal heart sound present and S2 normal heart sound present GI: COMMON NORMALS: Normal to inspection, nondistended, normoactive bowel sounds present and non-tender Extremity: COMMON NORMALS: no pedal edema Neuro: COMMON NORMALS: patient oriented x3 Psych: COMMON NORMALS: mental status grossly normal Urinary Catheter Management: Ray: Cath Placed During This Visit: yes Reason for Continuing Indwelling Catheter: Other Urinary Catheter Date of Insertion: 02/28/23 Urinary Catheter Time of Insertion: 08:30 Data 03/03/23 02:13 03/03/23 02:13 A&P Assessment and plan (1) Closed fracture of right hip: s/p surgery Orthopedics consult, lovenox for dvt prophylaxis home morphine for pain control Patient would now like to receive physical therapy, declines hospice for now would like to be discharged to [facility] on hosp[facility] ? PT OT Qualifiers: Encounter type: initial encounter Qualified Code(s): S72.001A - Fracture of unspecified part of neck of right femur, initial encounter for closed fracture (2) Right clavicle fracture: -currently in a sling (3) COVID-19: Associated with chronic hypoxic respiratory failure Isolation precautions (4) Lung cancer: Non-small cell lung cancer ? Right lower lobe, very early stage, diagnosed in 2014 ? Underwent right lower lobe lobectomy, in 2014, -PET in November 2022 shows multistation peter disease along with left lower lobe lung mass.? 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 Last staging was 3B [id number] -Patient as per documentation patient has declined radiation therapy, he had a PET avid GI lesion which he declined colonoscopy -He did not wish to undergo systemic palliative therapy with chemotherapy ? Was agreeable to undergo immunotherapy, received Keytruda 01/22/2023, which was stopped as patient wanted to go onto hospice during his last hospitalization, discharged to [facility] on hospice Qualifiers: Laterality: unspecified laterality Lung location: unspecified part of lung Qualified Code(s): C34.90 - Malignant neoplasm of unspecified part of unspecified bronchus or lung (5) Type 2 diabetes mellitus: Lantus 10 units every 24 hours ? Moderate dose sliding scale (6) COPD (chronic obstructive pulmonary disease): Not in acute exacerbation Breathing treatments as needed (7) Anemia: Postoperative anemia, requiring 1 unit PRBC, hemoglobin 8.2 Plan DVT ppx: lovenox Hypercalcemia of malignancy, current calcium is 9.5, monitor Attestations Medical Necessity Statement*: Patient requires hospitalization for right hip fracture, status post surgery, re ceiving inpatient physical therapy, with postoperative anemia requiring transfusion Diagnoses Closed fracture of right hip S72.001A Encounter type: initial encounter Right clavicle fracture S42.001A COVID-19 U07.1 Lung cancer C34.90 Laterality: unspecified laterality Lung location: unspecified part of lung Type 2 diabetes mellitus E11.9 COPD (chronic obstructive pulmonary disease) J44.9 Anemia D64.9
[2023-03-03] MEDS: morphine ER (12 HR) 15 mg Tablet PO ×2 (15:48→23:50)
[2023-03-03 16:57] LABS: Glucose Point of Care 186 mg/dL (70-110)
[2023-03-03] MEDS: insulin lispro 100 unit/1 mL SUBCUT (17:20)
--- NOTE | 2023-03-03 17:37 | PC.NURSE ---
Upon report this am, pt appeared to be very confused after receiving his 30mg morphine stating that he was in a barge in [place] the [place]. Dr. Marquis notified and adjustments were made to Morphine. Upon trying to administer 1800 meds, approximately 3hrs following administration of 1500 dose of morphine 15mg, pt seemed very agitated and paranoid refusing all PO medications and stating he was being overmedicated. Pt finally agreed to receive his insulin, but no other medications. When asked if he could tell me where he was, pt stated I'm in a motel to keep me safe. He then told his family at bedside that maybe we should lock the door Family is concerned about pt taking morphine all together. Pt educated on risks of stopping morphine and buspar abruptly. Dr. Marquis notified.
[2023-03-03 18:42] LABS: Bilirubin Urine Neg (Negative); Blood Urine 3+ (Negative); Glucose Urine UA 1+ (Normal); Ketones Urine 1+ (Negative); Nitrate Urine Negative (Negative); Protein Urine 1+ (Negative); Specific Gravity, Urine 1.005 (1.005-1.030); Urine Appearance Clear (CLEAR); Urine Color Yellow (Yellow); pH Urine 8 (5-7)
[2023-03-03 18:43] LABS: Add Urine Culture? No; Add Urine Microscopic? YES; Amorphous Sediment Urine 2+ /hpf; Bacteria Urine TRACE /hpf; Leukocyte Esterase Urine Negative (Negative); Squamous Epithelial Cell Urine RARE /hpf (0-5); Urobilinogen Urine Neg (Negative); WBC Urine 0-4 /hpf (0-5)
--- NOTE | 2023-03-03 19:02 | PC.NURSE ---
Pt c/o itching and redness to chest and is requesting benadryl. No new medications taken besides heparin today. Dr. Mendoza notified.
[2023-03-03 20:35] LABS: Glucose Point of Care 108 mg/dL (70-110)
[2023-03-03] MEDS: atorvastatin 40 mg Tablet 80 MG PO (20:47)
[2023-03-03] MEDS: finasteride 5 mg Tablet PO (20:48)
[2023-03-03] MEDS: tamsulosin 0.4 mg Capsule PO (20:48)
--- NOTE | 2023-03-03 21:08 | PC.NURSE ---
Patient is having some paranoia, when asked where are we at he responded [place] the [place], but I don't have a house . When administering nighttime meds this nurse explained what each pill was for and patient stated Why do I have to take all of them?, what if I OD? This nurse again explained what each pill was for and told patient that we do not give mores than the dose ordered. Patient stated I don't take anything, you are trying to poison me . After education was provided patient did take his pills. Patient also asked what we were going to do with his legs, when asking what he meant by that he stated Both my legs are big .
[2023-03-04] VITALS (10 sets, daily range): BP systolic 99–160; BP diastolic 50–68; PULSE 78–100; RESP 14–20; TEMP 36.3–37.8; O2SAT 92–97
[2023-03-04 03:24] LABS: Eosinophils # 0.5 10^3/uL (0.0-0.8); Hematocrit 28.5 % (37-53); Lymphocytes # 0.9 10^3/uL (0.8-4.8); Lymphocytes % 7.1 %; Mean Corpuscular HGB Conc 30.5 g/dL (30-55); Mean Corpuscular Hemoglobin 27.5 pg (27-33); Mean Corpuscular Volume 90.2 fl (82-101); Monocytes # 0.7 10^3/uL (0.2-0.9); Monocytes % 5.6 %; Neutrophils # 9.91 10^3/uL (1.8-7.7); Neutrophils % 82.5 %; Nucleated Red Blood Cells % 0 %; Platelet Count 222 10^3/cmm (157-399); Red Blood Count 3.16 10^6/uL (3.85-5.65); White Blood Count 12.01 10^3/uL (3.29-11.43)
[2023-03-04 03:43] LABS: Blood Urea Nitrogen 18 mg/dL (8-23); Carbon Dioxide 25 mmol/L (22-29); Chloride 107 mmol/L (98-107); Glucose 170 mg/dL (65-115); Osmolality Calculated 298 mOsm/kg (285-295); Sodium 141 mmol/L (136-145)
[2023-03-04 07:41] LABS: Glucose Point of Care 213 mg/dL (70-110)
--- NOTE | 2023-03-04 08:02 | XRR_ITS ---
PROCEDURE INFORMATION: Exam: XR Chest Exam date and time: 03/04/2023 10:04 AM Age: 73 years old Clinical indication: Shortness of breath; Additional info: SOB TECHNIQUE: Imaging protocol: Radiologic exam of the chest. Views: 1 view. COMPARISON: CR XR chest 1V portable [id number] 02/27/2023 5:24 PM FINDINGS: Lungs: Review of previous CT from 02/06/2023 shows bullous emphysematous change, scarring and interstitial lung disease. There are abnormal masslike opacities on that CT which are again noted on the chest x-ray but less well demonstrated. These areas could represent consolidated fibrosis. These could represent areas of nonclearing infectious pneumonia. Findings suspicious however for possible multifocal neoplasm. There is overall volume loss in the right lung relative to left as noted previously. Patient has undergone previous right thoracotomy with rib deformity and surgical clips and jarad Pleural spaces: Unremarkable. No pleural effusion. No pneumothorax. Heart/Mediastinum: Unremarkable. No cardiomegaly. Bones/joints: Unremarkable. XR/XR chest 1V portable [id number] IMPRESSION: 1. Previous right thoracotomy 2. Markedly abnormal chest x-ray with bullous emphysematous change, interstitial lung disease and scarring. No significant change masslike opacities, see above. Findings remain concerning for multifocal neoplasm. If there is high clinical suspicion for acute process, may want to repeat the chest CT at this time
[2023-03-04 08:37] LABS: Add Urine Microscopic? YES; Bilirubin Urine Neg (Negative); Blood Urine 2+ (Negative); Glucose Urine UA 1+ (Normal); Ketones Urine 2+ (Negative); Leukocyte Esterase Urine Negative (Negative); Nitrate Urine Negative (Negative); Protein Urine Trace (Negative); Urine Appearance Clear (CLEAR); Urine Color Yellow (Yellow); Urobilinogen Urine Norm (Negative); pH Urine 7 (5-7)
[2023-03-04 08:47] LABS: Add Urine Culture? No; Hyaline Casts Urine 0-4 /lpf; Mucus Urine TRACE /hpf; RBC Urine 0-4 /hpf (0-2); WBC Urine 0-4 /hpf (0-5)
[2023-03-04 09:23] LABS: C Reactive Protein 88.3 mg/L (0.0-4.9)
[2023-03-04] MEDS: enoxaparin 30 mg/0.3 mL Syringe SUBCUT (09:25)
[2023-03-04 09:26] LABS: Procalcitonin 0.14 ng/mL (0-0.5)
[2023-03-04] MEDS: insulin lispro 100 unit/1 mL SUBCUT ×3 (09:26→17:51)
[2023-03-04] MEDS: calcium carb-vit d 600mg/400unit 1 Tablet 1 EACH PO ×2 (09:27→17:42)
[2023-03-04] MEDS: metoprolol succinate ER (24 HR) 50 mg Tablet PO (09:27)
[2023-03-04] MEDS: clopidogrel 75 mg Tablet PO (09:28)
[2023-03-04] MEDS: pantoprazole DR 40 mg Tablet PO (09:28)
[2023-03-04] MEDS: docusate sodium 100 mg Capsule PO ×2 (09:28→17:41)
[2023-03-04] MEDS: BuSPIRONE 10 mg Tablet 7.5 MG PO ×2 (09:28→17:41)
[2023-03-04] MEDS: chlorhexidine gluconate 0.12% Btl 473 mL 30 ML MUCOUS MEM ×4 (09:28→21:09)
[2023-03-04] MEDS: multivitamin therapeutic Tablet 1 TAB PO (09:28)
[2023-03-04] MEDS: aspirin 81 mg EC Tablet PO (09:28)
[2023-03-04] MEDS: iron polysaccharide complex 150 mg Capsule PO ×2 (09:29→17:42)
[2023-03-04] MEDS: mupirocin oint 22 gm 1 APPLIC NASAL ×2 (09:31→17:47)
[2023-03-04] MEDS: morphine ER (12 HR) 15 mg Tablet PO ×3 (09:37→23:35)
[2023-03-04] MEDS: escitalopram 10 mg Tablet 20 MG PO (09:37)
[2023-03-04] MEDS: insulin glargine 100 units/1 mL 10 UNIT SUBCUT (09:37)
[2023-03-04] MEDS: ipratropium-albuterol 3 mL Neb INHALATION ×2 (10:39→20:56)
[2023-03-04] MEDS: budesonide 0.5 mg/2 mL Neb INHALATION ×2 (10:39→20:56)
[2023-03-04 11:14] LABS: Glucose Point of Care 199 mg/dL (70-110)
[2023-03-04 12:07] LABS: Adenovirus Not Detected (NOT DETECT); Chlamydia Pneumoniae Not Detected (NOT DETECT); Coronavirus 229E,HKU1,NL63,OC4 Not Detected (NOT DETECT); Human Metapneumovirus Not Detected (NOT DETECT); Human Rhinovirus/Enterovirus Not Detected (NOT DETECT); Influenza A Not Detected (NOT DETECT); Influenza A H1 Not Detected (NOT DETECT); Influenza A H1-2009 Not Detected (NOT DETECT); Influenza A H3 Not Detected (NOT DETECT); Influenza B Not Detected (NOT DETECT); Mycoplasma Pneumoniae Not Detected (NOT DETECT); Parainfluenza Virus Type 1 Not Detected (NOT DETECT); Parainfluenza Virus Type 2 Not Detected (NOT DETECT); Parainfluenza Virus Type 3 Not Detected (NOT DETECT); Parainfluenza Virus Type 4 Not Detected (NOT DETECT); Respiratory Syncytial Virus A Not Detected (NOT DETECT); Respiratory Syncytial Virus B Not Detected (NOT DETECT)
--- NOTE | 2023-03-04 12:19 | PC.SOCIAL ---
IMM Updated Updated pt on IMM. No questions voiced. Provided pt a copy. Initialed, dated, & timed copy in chart.
[2023-03-04 12:20] LABS: SARS-COV-2 Detected (NOT DETECT)
[2023-03-04] MEDS: acetaminophen 500 mg Tablet 1000 MG PO ×2 (12:40→21:08)
[2023-03-04] MEDS: azithromycin 500 MG in sodium chloride 0.9% 250 ML 250 MG IV (15:16)
--- NOTE | 2023-03-04 16:44 | PM.PN ---
Subjective Subjective: Patient was seen this morning, he is alert oriented x3, follows all commands, nursing staff report episodes of confusion during the night, he did have a temperature of 100 overnight, denies any abdominal pain, nausea, vomiting, denies any shortness of breath, Vitals/I&O/Wt Last Vital Signs Temp 97.8 F 03/04/23 16:23 Pulse 79 03/04/23 16:23 Resp 20 H 03/04/23 16:23 BP 129/61 03/04/23 16:23 Pulse Ox 94 03/04/23 16:23 O2 Del Method Nasal Cannula 03/04/23 16:23 O2 Flow Rate 3 03/04/23 09:30 03/04/23 03/04/23 03/04/23 06:59 14:59 22:59 Intake Total 360 / 360 Output Total 500 / 1425 Balance -500 / -45 360 / 360 Weight last 48 hrs Weight 76.26 kg Weight 81.647 kg Physical Exam Const: COMMON NORMALS: no acute distress and patient oriented x3 Resp: COMMON NORMALS: normal respiratory effort, No retractions, No use of accessory muscles and clear to auscultation bilaterally AUSCULTATION: clear to auscultation bilaterally Cardio: COMMON NORMALS: regular rate, regular rhythm, S1 normal heart sound present and S2 normal heart sound present RATE: regular rate RHYTHM: regular rhythm HEART SOUNDS: S1 normal heart sound present and S2 normal heart sound present GI: COMMON NORMALS: Normal to inspection, nondistended, normoactive bowel sounds present and non-tender Extremity: COMMON NORMALS: no pedal edema Neuro: COMMON NORMALS: patient oriented x3 Psych: COMMON NORMALS: mental status grossly normal Skin: OTHER: Multiple bruises, over her right eye, right shoulder, right posterior arm Urinary Catheter Management: Ray: Cath Placed During This Visit: yes Reason for Continuing Indwelling Catheter: Other Urinary Catheter Date of Insertion: 02/28/23 Urinary Catheter Time of Insertion: 08:30 Data 03/04/23 02:18 03/04/23 02:18 Micro: Microbiology 03/04/23 08:40 Blood Culture - Preliminary Blood SPECIMEN COLLECTED 03/04/23 08:34 Blood Culture - Preliminary Blood SPECIMEN COLLECTED A&P Assessment and plan (1) Closed fracture of right hip: s/p surgery Orthopedics consult, lovenox for dvt prophylaxis home morphine for pain control Patient would now like to receive physical therapy, declines hospice for now would like to be discharged to half-way facility on hospice, receiving physical therapy ? PT OT Qualifiers: Encounter type: initial encounter Qualified Code(s): S72.001A - Fracture of unspecified part of neck of right femur, initial encounter for closed fracture (2) Right clavicle fracture: -currently in a sling (3) COVID-19: Associated with chronic hypoxic respiratory failure Isolation precautions (4) Lung cancer: Non-small cell lung cancer ? Right lower lobe, very early stage, diagnosed in 2014 ? Underwent right lower lobe lobectomy, in 2014, -PET in November 2022 shows multistation peter disease along with left lower lobe lung mass.? 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 Last staging was 3B [id number] -Patient as per documentation patient has declined radiation therapy, he had a PET avid GI lesion which he declined colonoscopy -He did not wish to undergo systemic palliative therapy with chemotherapy ? Was agreeable to undergo immunotherapy, received Keytruda 01/22/2023, which was stopped as patient wanted to go onto hospice during his last hospitalization, discharged to [facility]-way facility on hospice Qualifiers: Laterality: unspecified laterality Lung location: unspecified part of lung Qualified Code(s): C34.90 - Malignant neoplasm of unspecified part of unspecified bronchus or lung (5) Type 2 diabetes mellitus: Lantus 10 units every 24 hours ? Moderate dose sliding scale (6) COPD (chronic obstructive pulmonary disease): Not in acute exacerbation Breathing treatments as needed (7) Anemia: Postoperative anemia, requiring 1 unit PRBC, hemoglobin 8.2 (8) Postoperative fever: ? Postoperative fever, ? UA within normal limits, ? Respiratory viral panel shows positive COVID, history of COVID, tested positive [facility] the [place] [facility], but will call and confirm ? Chest x-ray ? 1. Previous right thoracotomy 2.? Markedly abnormal chest x-ray with bullous emphysematous change, interstitial lung disease and scarring.? No significant change masslike opacities, see above.? Findings remain concerning for multifocal neoplasm.? If there is high clinical suspicion for acute process, may want to repeat the chest CT at this time ? Pro-Jerry 0.14, CRP 88.3 ? We will start on Rocephin and azithromycin for possible respiratory tract infection, ? Follow blood cultures ? He does complain of calf pain, on the left, we will do venous ultrasound (9) Acute encephalopathy: ? Likely secondary to postoperative state, underlying sundowning, ? It could also be from pain medication, as per patient and family request I decreased his morphine to 15 mg 3 times daily from 30 mg, monitor for withdrawal ? Currently alert oriented x3, following all commands, neurochecks, after precautions, NIH stroke scale Plan DVT ppx: lovenox Hypercalcemia of malignancy, current calcium is 9.5, monitor Attestations Medical Necessity Statement*: Patient requires hospitalization, for hip fracture, receiving rehab, patient declines hospice, now with postoperative fevers at 100, requiring further work-up, antibiotics for possible pneumonia Diagnoses Closed fracture of right hip S72.001A Encounter type: initial encounter Right clavicle fracture S42.001A COVID-19 U07.1 Lung cancer C34.90 Laterality: unspecified laterality Lung location: unspecified part of lung Type 2 diabetes mellitus E11.9 COPD (chronic obstructive pulmonary disease) J44.9 Anemia D64.9 Postoperative fever R50.82 Acute encephalopathy G93.40
--- NOTE | 2023-03-04 16:53 | USCV_ITS ---
Moses Cardoza Age: 73 Gender: M : 1950 Exam Date: 03/04/2023 22:04 Ordering Phys: Celso Marquis MD Technologist: LOTTIE Exam Location: [facility] [place] Indication: calf pain s/p RT hip ORIF. No history of DVT per patient. HISTORY: calf pain s/p RT hip ORIF. No history of DVT per patient. No erythema. No edema. PROCEDURES: Venous duplex imaging was performed in bilateral lower extremities. The following venous structures were evaluated: common femoral vein, profunda vein, proximal portion of the greater saphenous vein, superficial femoral vein, and the popliteal vein. In addition, the posterior tibial veins were evaluated. Serial compression, augmentation maneuvers, and spectral Doppler flow evaluation were performed, which were normal. Bilaterally, the common femoral, superficial femoral, profunda femoral, popliteal, posterior tibial, and greater saphenous veins were identified and interrogated in the standard fashion. These veins were found to be easily compressible with spontaneous blood flow. No evidence of thrombus noted. CONCLUSIONS No evidence of left lower extremity DVT. No evidence of right lower extremity DVT. Pablo Munguia MD (Electronically Signed) Final Date: 05 March 2023 09:07 S
[2023-03-04 17:02] LABS: Glucose Point of Care 290 mg/dL (70-110)
[2023-03-04] MEDS: cefTRIAXone 1,000 MG in sodium chloride 0.9% (plus) 50 ML 100 MG IV (17:40)
[2023-03-04 20:44] LABS: Glucose Point of Care 105 mg/dL (70-110)
[2023-03-04] MEDS: tamsulosin 0.4 mg Capsule PO (21:08)
[2023-03-04] MEDS: finasteride 5 mg Tablet PO (21:08)
[2023-03-04] MEDS: atorvastatin 40 mg Tablet 80 MG PO (21:08)
[2023-03-05] VITALS (10 sets, daily range): BP systolic 104–147; BP diastolic 57–88; PULSE 67–103; RESP 16–22; TEMP 36.6–37; O2SAT 90–96
[2023-03-05] MEDS: pantoprazole DR 40 mg Tablet PO (06:23)
[2023-03-05] MEDS: enoxaparin 30 mg/0.3 mL Syringe SUBCUT (06:23)
[2023-03-05] MEDS: acetaminophen 500 mg Tablet 1000 MG PO ×3 (06:23→22:42)
[2023-03-05] MEDS: morphine ER (12 HR) 15 mg Tablet PO ×3 (06:24→22:42)
[2023-03-05] MEDS: metoprolol succinate ER (24 HR) 50 mg Tablet PO (06:24)
[2023-03-05] MEDS: escitalopram 10 mg Tablet 20 MG PO (06:24)
[2023-03-05 06:39] LABS: Basophils % 0.1 %; Eosinophils # 0.4 10^3/uL (0.0-0.8); Eosinophils % 3.1 %; Hematocrit 26.8 % (37-53); Lymphocytes # 0.6 10^3/uL (0.8-4.8); Lymphocytes % 4.7 %; Mean Corpuscular HGB Conc 30.6 g/dL (30-55); Mean Corpuscular Volume 91.5 fl (82-101); Mean Platelet Volume 10.1 fL (7.4-10.4); Monocytes # 0.7 10^3/uL (0.2-0.9); Monocytes % 5.9 %; Neutrophils # 10.69 10^3/uL (1.8-7.7); Neutrophils % 85.4 %; Nucleated Red Blood Cells % 0 %; Platelet Count 214 10^3/cmm (157-399); Red Blood Count 2.93 10^6/uL (3.85-5.65); Red Cell Distribution Width 15.2 % (12.1-15.1); White Blood Count 12.52 10^3/uL (3.29-11.43)
[2023-03-05 06:46] LABS: Glucose Point of Care 322 mg/dL (70-110)
[2023-03-05 07:01] LABS: Anion Gap 13.8 (5-19); Blood Urea Nitrogen 18 mg/dL (8-23); Calcium 9.4 mg/dL (8.5-10.5); Carbon Dioxide 21 mmol/L (22-29); Chloride 105 mmol/L (98-107); Glucose 317 mg/dL (65-115); Osmolality Calculated 296 mOsm/kg (285-295); Potassium 3.8 mmol/L (3.5-5.1); Sodium 136 mmol/L (136-145)
[2023-03-05] MEDS: ipratropium-albuterol 3 mL Neb INHALATION ×3 (08:22→20:17)
[2023-03-05] MEDS: budesonide 0.5 mg/2 mL Neb INHALATION ×2 (08:22→20:17)
[2023-03-05] MEDS: multivitamin therapeutic Tablet 1 TAB PO (09:16)
[2023-03-05] MEDS: clopidogrel 75 mg Tablet PO (09:16)
[2023-03-05] MEDS: iron polysaccharide complex 150 mg Capsule PO ×2 (09:16→17:06)
[2023-03-05] MEDS: docusate sodium 100 mg Capsule PO ×2 (09:16→17:06)
[2023-03-05] MEDS: BuSPIRONE 10 mg Tablet 7.5 MG PO ×2 (09:16→17:06)
[2023-03-05] MEDS: calcium carb-vit d 600mg/400unit 1 Tablet 1 EACH PO ×2 (09:16→17:06)
[2023-03-05] MEDS: aspirin 81 mg EC Tablet PO (09:16)
[2023-03-05] MEDS: insulin lispro 100 unit/1 mL SUBCUT ×4 (09:16→22:42)
[2023-03-05] MEDS: insulin glargine 100 units/1 mL 10 UNIT SUBCUT (09:17)
[2023-03-05] MEDS: mupirocin oint 22 gm 1 APPLIC NASAL (09:21)
[2023-03-05] MEDS: chlorhexidine gluconate 0.12% Btl 473 mL 30 ML MUCOUS MEM ×4 (09:21→19:59)
[2023-03-05 11:01] LABS: Glucose Point of Care 308 mg/dL (70-110)
--- NOTE | 2023-03-05 12:29 | PM.PN ---
Subjective Subjective: Patient was seen this morning, he denies any fevers, no chills, no cough, he wants to go to a [place] [facility] facility where his family is at [place], denies any nausea, no vomiting, no abdominal pain Vitals/I&O/Wt Last Vital Signs Temp 98.2 F 03/05/23 12:00 Pulse 76 03/05/23 12:00 Resp 20 H 03/05/23 12:00 BP 124/64 03/05/23 12:00 Pulse Ox 95 03/05/23 12:00 O2 Del Method Room Air 03/05/23 12:00 O2 Flow Rate 2 03/05/23 08:23 03/04/23 03/05/23 03/05/23 22:59 06:59 14:59 Intake Total 420 / 780 240 / 240 Output Total 300 / 300 300 / 600 Balance 120 / 480 -300 / 180 240 / 240 Weight last 48 hrs Weight 76.26 kg Weight 76.26 kg Physical Exam Const: COMMON NORMALS: no acute distress and patient oriented x3 Resp: COMMON NORMALS: normal respiratory effort, No retractions, No use of accessory muscles and clear to auscultation bilaterally AUSCULTATION: clear to auscultation bilaterally Cardio: COMMON NORMALS: regular rate, regular rhythm, S1 normal heart sound present and S2 normal heart sound present RATE: regular rate RHYTHM: regular rhythm HEART SOUNDS: S1 normal heart sound present and S2 normal heart sound present GI: COMMON NORMALS: Normal to inspection, nondistended, normoactive bowel sounds present and non-tender Extremity: COMMON NORMALS: no pedal edema Neuro: COMMON NORMALS: patient oriented x3 Psych: COMMON NORMALS: mental status grossly normal Urinary Catheter Management: Ray: Cath Placed During This Visit: yes Reason for Continuing Indwelling Catheter: Other Urinary Catheter Date of Insertion: 02/28/23 Urinary Catheter Time of Insertion: 08:30 Data 03/05/23 06:14 03/05/23 06:14 Micro: Microbiology 03/04/23 08:40 Blood Culture - Preliminary Blood NEGATIVE TO DATE 03/04/23 08:34 Blood Culture - Preliminary Blood NEGATIVE TO DATE A&P Assessment and plan (1) Closed fracture of right hip: s/p surgery Orthopedics consult, lovenox for dvt prophylaxis home morphine for pain control Patient would now like to receive physical therapy, declines hospice for now would like to be discharged [facility], receiving physical therapy ? PT OT Qualifiers: Encounter type: initial encounter Qualified Code(s): S72.001A - Fracture of unspecified part of neck of right femur, initial encounter for closed fracture (2) Right clavicle fracture: -currently in a sling (3) COVID-19: Associated with chronic hypoxic respiratory failure Isolation precautions (4) Lung cancer: Non-small cell lung cancer ? Right lower lobe, very early stage, diagnosed in 2014 ? Underwent right lower lobe lobectomy, in 2014, -PET in November 2022 shows multistation peter disease along with left lower lobe lung mass.? 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 Last staging was 3B [id number] -Patient as per documentation patient has declined radiation therapy, he had a PET avid GI lesion which he declined colonoscopy -He did not wish to undergo systemic palliative therapy with chemotherapy ? Was agreeable to undergo immunotherapy, received Keytruda 01/22/2023, which was stopped as patient wanted to go onto hospice during his last hospitalization, discharged [facility] Qualifiers: Laterality: unspecified laterality Lung location: unspecified part of lung Qualified Code(s): C34.90 - Malignant neoplasm of unspecified part of unspecified bronchus or lung (5) Type 2 diabetes mellitus: Lantus 10 units every 24 hours ? Moderate dose sliding scale (6) COPD (chronic obstructive pulmonary disease): Not in acute exacerbation Breathing treatments as needed (7) Anemia: Postoperative anemia, requiring 1 unit PRBC, hemoglobin 8.2 (8) Postoperative fever: ? Postoperative fever, ? UA within normal limits, ? Respiratory viral panel shows positive COVID, history of COVID, tested positive at the [facility], but will call and confirm ? Chest x-ray ? 1. Previous right thoracotomy 2.? Markedly abnormal chest x-ray with bullous emphysematous change, interstitial lung disease and scarring.? No significant change masslike opacities, see above.? Findings remain concerning for multifocal neoplasm.? If there is high clinical suspicion for acute process, may want to repeat the chest CT at this time ? Pro-Jerry 0.14, CRP 88.3 ? Continue Rocephin and azithromycin for possible respiratory tract infection, ? Follow blood cultures ? He does complain of calf pain, on the left, we will do venous ultrasound, negative for DVT (9) Acute encephalopathy: ? Likely secondary to postoperative state, underlying sundowning, resolving ? It could also be from pain medication, as per patient and family request I decreased his morphine to 15 mg 3 times daily from 30 mg, monitor for withdrawal ? Currently alert oriented x3, following all commands, neurochecks, after precautions, NIH stroke scale (10) Respiratory tract infection: Plan DVT ppx: lovenox Hypercalcemia of malignancy, current calcium is 9.5, monitor Attestations Medical Necessity Statement*: Patient requires hospitalization for postoperative anemia, fevers, respiratory tract infection Diagnoses Closed fracture of right hip S72.001A Encounter type: initial encounter Right clavicle fracture S42.001A COVID-19 U07.1 Lung cancer C34.90 Laterality: unspecified laterality Lung location: unspecified part of lung Type 2 diabetes mellitus E11.9 COPD (chronic obstructive pulmonary disease) J44.9 Anemia D64.9 Postoperative fever R50.82 Acute encephalopathy G93.40 Respiratory tract infection J98.8
[2023-03-05] MEDS: azithromycin 500 MG in sodium chloride 0.9% 250 ML 250 MG IV (12:33)
[2023-03-05 16:46] LABS: Glucose Point of Care 299 mg/dL (70-110)
[2023-03-05] MEDS: cefTRIAXone 1,000 MG in sodium chloride 0.9% (plus) 50 ML 100 MG IV (17:06)
[2023-03-05] MEDS: finasteride 5 mg Tablet PO (19:59)
[2023-03-05] MEDS: tamsulosin 0.4 mg Capsule PO (19:59)
[2023-03-05] MEDS: atorvastatin 40 mg Tablet 80 MG PO (19:59)
[2023-03-05 20:19] LABS: Glucose Point of Care 256 mg/dL (70-110)
[2023-03-06] VITALS (10 sets, daily range): BP systolic 120–138; BP diastolic 60–82; PULSE 76–98; RESP 16–20; TEMP 36.4–37; O2SAT 93–96
[2023-03-06] MEDS: metoprolol succinate ER (24 HR) 50 mg Tablet PO (06:12)
[2023-03-06] MEDS: escitalopram 10 mg Tablet 20 MG PO (06:12)
[2023-03-06] MEDS: pantoprazole DR 40 mg Tablet PO (06:12)
[2023-03-06] MEDS: enoxaparin 30 mg/0.3 mL Syringe SUBCUT (06:12)
[2023-03-06] MEDS: acetaminophen 500 mg Tablet 1000 MG PO ×3 (06:12→21:32)
[2023-03-06] MEDS: morphine ER (12 HR) 15 mg Tablet PO ×3 (06:14→23:35)
[2023-03-06 06:22] LABS: Eosinophils # 0.5 10^3/uL (0.0-0.8); Eosinophils % 5.1 %; Hematocrit 24.2 % (37-53); Lymphocytes # 0.7 10^3/uL (0.8-4.8); Lymphocytes % 7.6 %; Mean Corpuscular HGB Conc 32.6 g/dL (30-55); Mean Corpuscular Hemoglobin 28.9 pg (27-33); Mean Corpuscular Volume 88.6 fl (82-101); Monocytes # 0.7 10^3/uL (0.2-0.9); Monocytes % 7.3 %; Neutrophils # 7.31 10^3/uL (1.8-7.7); Neutrophils % 79.3 %; Nucleated Red Blood Cells % 0 %; Platelet Count 198 10^3/cmm (157-399); Red Blood Count 2.73 10^6/uL (3.85-5.65); White Blood Count 9.21 10^3/uL (3.29-11.43)
[2023-03-06 06:37] LABS: Glucose Point of Care 181 mg/dL (70-110)
[2023-03-06 06:43] LABS: Anion Gap 11.5 (5-19); Blood Urea Nitrogen 15 mg/dL (8-23); Calcium 9.6 mg/dL (8.5-10.5); Carbon Dioxide 25 mmol/L (22-29); Chloride 105 mmol/L (98-107); Glucose 167 mg/dL (65-115); Osmolality Calculated 291 mOsm/kg (285-295); Potassium 3.5 mmol/L (3.5-5.1); Sodium 138 mmol/L (136-145)
[2023-03-06] MEDS: budesonide 0.5 mg/2 mL Neb INHALATION ×2 (09:13→20:34)
[2023-03-06] MEDS: ipratropium-albuterol 3 mL Neb INHALATION ×3 (09:13→20:34)
[2023-03-06] MEDS: calcium carb-vit d 600mg/400unit 1 Tablet 1 EACH PO ×2 (09:47→17:39)
[2023-03-06] MEDS: docusate sodium 100 mg Capsule PO ×2 (09:47→17:39)
[2023-03-06] MEDS: BuSPIRONE 10 mg Tablet 7.5 MG PO ×2 (09:47→17:39)
[2023-03-06] MEDS: clopidogrel 75 mg Tablet PO (09:47)
[2023-03-06] MEDS: iron polysaccharide complex 150 mg Capsule PO ×2 (09:47→17:39)
[2023-03-06] MEDS: aspirin 81 mg EC Tablet PO (09:47)
[2023-03-06] MEDS: multivitamin therapeutic Tablet 1 TAB PO (09:47)
[2023-03-06] MEDS: insulin glargine 100 units/1 mL 10 UNIT SUBCUT (09:48)
[2023-03-06] MEDS: insulin lispro 100 unit/1 mL SUBCUT ×4 (09:48→21:32)
[2023-03-06] MEDS: chlorhexidine gluconate 0.12% Btl 473 mL 30 ML MUCOUS MEM ×4 (09:48→21:33)
--- NOTE | 2023-03-06 10:42 | PC.SOCIAL ---
IMM Updated Updated pt on IMM. No questions voiced. Provided pt a copy. Initialed, dated, & timed copy in chart.
[2023-03-06 11:50] LABS: Glucose Point of Care 298 mg/dL (70-110)
--- NOTE | 2023-03-06 12:13 | P.PN_ITS ---
Subjective Subjective: Patient was seen this morning, working with physical therapy, he is up into a chair, no pain complaints, he has not had a bowel movement, would like a bowel regimen, Vitals/I&O/Wt Last Vital Signs Temp 98.1 F 03/06/23 12:00 Pulse 84 03/06/23 12:00 Resp 20 H 03/06/23 12:00 BP 138/82 03/06/23 12:00 Pulse Ox 94 03/06/23 12:00 O2 Del Method Nasal Cannula 03/06/23 08:00 O2 Flow Rate 2 03/06/23 08:00 03/05/23 03/06/23 03/06/23 22:59 06:59 14:59 Intake Total 770 / 1260 600 / 1860 240 / 240 Output Total 700 / 700 600 / 1300 Balance 70 / 560 0 / 560 240 / 240 Weight last 48 hrs Weight 76.204 kg Weight 76.26 kg Physical Exam Const: COMMON NORMALS: no acute distress and patient oriented x3 Resp: COMMON NORMALS: normal respiratory effort, No retractions, No use of accessory muscles and clear to auscultation bilaterally AUSCULTATION: clear to auscultation bilaterally Cardio: COMMON NORMALS: regular rate, regular rhythm, S1 normal heart sound present and S2 normal heart sound present RATE: regular rate RHYTHM: regular rhythm HEART SOUNDS: S1 normal heart sound present and S2 normal heart sound present GI: COMMON NORMALS: Normal to inspection, nondistended, normoactive bowel sounds present and non-tender Extremity: COMMON NORMALS: no pedal edema Neuro: COMMON NORMALS: patient oriented x3 Psych: COMMON NORMALS: mental status grossly normal Urinary Catheter Management: Ray: Cath Placed During This Visit: yes Reason for Continuing Indwelling Catheter: Other Urinary Catheter Date of Insertion: 02/28/23 Urinary Catheter Time of Insertion: 08:30 Data 03/06/23 06:05 03/06/23 06:05 Micro: Microbiology 03/04/23 08:40 Blood Culture - Preliminary Blood NEGATIVE TO DATE 03/04/23 08:34 Blood Culture - Preliminary Blood NEGATIVE TO DATE A&P Assessment and plan (1) Closed fracture of right hip: s/p surgery Orthopedics consult, lovenox for dvt prophylaxis home morphine for pain control Patient would now like to receive physical therapy, declines hospice for now would like to be discharged to alf facility on hospice, receiving physical therapy ? PT OT Qualifiers: Encounter type: initial encounter Qualified Code(s): S72.001A - Fracture of unspecified part of neck of right femur, initial encounter for closed fracture (2) Right clavicle fracture: -currently in a sling (3) COVID-19: Associated with chronic hypoxic respiratory failure Isolation precautions (4) Lung cancer: Non-small cell lung cancer ? Right lower lobe, very early stage, diagnosed in 2014 ? Underwent right lower lobe lobectomy, in 2014, -PET in November 2022 shows multistation peter disease along with left lower lobe lung mass.? 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 Last staging was 3B [id number] -Patient as per documentation patient has declined radiation therapy, he had a PET avid GI lesion which he declined colonoscopy -He did not wish to undergo systemic palliative therapy with chemotherapy ? Was agreeable to undergo immunotherapy, received Keytruda 01/22/2023, which was stopped as patient wanted to go onto hospice during his last hospi talization, discharged to alf facility on hospice Qualifiers: Laterality: unspecified laterality Lung location: unspecified part of lung Qualified Code(s): C34.90 - Malignant neoplasm of unspecified part of unspecified bronchus or lung (5) Type 2 diabetes mellitus: Lantus 10 units every 24 hours ? Moderate dose sliding scale (6) COPD (chronic obstructive pulmonary disease): Not in acute exacerbation Breathing treatments as needed (7) Anemia: Postoperative anemia, requiring 1 unit PRBC, hemoglobin 8.2 (8) Postoperative fever: ? Postoperative fever, afebrile for the last 72 hours ? UA within normal limits, ? Respiratory viral panel shows positive COVID, history of COVID, tested positive at the skilled nursing, but will call and confirm ? Chest x-ray ? 1. Previous right thoracotomy 2.? Markedly abnormal chest x-ray with bullous emphysematous change, interstitial lung disease and scarring.? No significant change masslike opacities, see above.? Findings remain concerning for multifocal neoplasm.? If there is high clinical suspicion for acute process, may want to repeat the chest CT at this time ? Pro-Jerry 0.14, CRP 88.3 ? Continue Rocephin and azithromycin for possible respiratory tract infection, ? Follow blood cultures ? He does complain of calf pain, on the left, we will do venous ultrasound, negative for DVT (9) Acute encephalopathy: ? Likely secondary to postoperative state, underlying sundowning, resolving ? It could also be from pain medication, as per patient and family request I decreased his morphine to 15 mg 3 times daily from 30 mg, monitor for withdrawal ? Currently alert oriented x3, following all commands, neurochecks, after precautions, NIH stroke scale (10) Respiratory tract infection: Plan DVT ppx: lovenox Hypercalcemia of malignancy, current calcium is 9.5, monitor Attestations Medical Necessity Statement*: Patient requires hospitalization for hip fracture, requiring physical therapy, hemoglobin requiring monitoring, respiratory tract infection requiring antibiotics Diagnoses Closed fracture of right hip S72.001A Encounter type: initial encounter Right clavicle fracture S42.001A COVID-19 U07.1 Lung cancer C34.90 Laterality: unspecified laterality Lung location: unspecified part of lung Type 2 diabetes mellitus E11.9 COPD (chronic obstructive pulmonary disease) J44.9 Anemia D64.9 Postoperative fever R50.82 Acute encephalopathy G93.40 Respiratory tract infection J98.8
[2023-03-06] MEDS: polyethylene glycol 3350 Pkt 17 gm PO (13:10)
[2023-03-06 17:32] LABS: Glucose Point of Care 204 mg/dL (70-110)
[2023-03-06] MEDS: cefTRIAXone 1,000 MG in sodium chloride 0.9% (plus) 50 ML 100 MG IV (17:38)
[2023-03-06 20:57] LABS: Glucose Point of Care 330 mg/dL (70-110)
[2023-03-06] MEDS: finasteride 5 mg Tablet PO (21:32)
[2023-03-06] MEDS: tamsulosin 0.4 mg Capsule PO (21:32)
[2023-03-06] MEDS: atorvastatin 40 mg Tablet 80 MG PO (21:32)
[2023-03-07] VITALS (8 sets, daily range): BP systolic 118–144; BP diastolic 53–65; PULSE 66–79; RESP 16–20; TEMP 36.4–36.8; O2SAT 90–97
[2023-03-07] MEDS: escitalopram 10 mg Tablet 20 MG PO (06:07)
[2023-03-07] MEDS: pantoprazole DR 40 mg Tablet PO (06:07)
[2023-03-07] MEDS: enoxaparin 30 mg/0.3 mL Syringe SUBCUT (06:07)
[2023-03-07] MEDS: metoprolol succinate ER (24 HR) 50 mg Tablet PO (06:07)
[2023-03-07] MEDS: morphine ER (12 HR) 15 mg Tablet PO ×3 (06:09→22:02)
[2023-03-07 07:30] LABS: Glucose Point of Care 134 mg/dL (70-110)
[2023-03-07] MEDS: iron polysaccharide complex 150 mg Capsule PO ×2 (08:20→17:29)
[2023-03-07] MEDS: polyethylene glycol 3350 Pkt 17 gm PO (08:20)
[2023-03-07] MEDS: clopidogrel 75 mg Tablet PO (08:20)
[2023-03-07] MEDS: aspirin 81 mg EC Tablet PO (08:20)
[2023-03-07] MEDS: BuSPIRONE 10 mg Tablet 7.5 MG PO ×2 (08:20→17:29)
[2023-03-07] MEDS: multivitamin therapeutic Tablet 1 TAB PO (08:20)
[2023-03-07] MEDS: calcium carb-vit d 600mg/400unit 1 Tablet 1 EACH PO ×2 (08:20→17:29)
[2023-03-07] MEDS: docusate sodium 100 mg Capsule PO ×2 (08:20→17:29)
[2023-03-07] MEDS: chlorhexidine gluconate 0.12% Btl 473 mL 30 ML MUCOUS MEM ×4 (08:21→22:02)
[2023-03-07] MEDS: insulin glargine 100 units/1 mL 10 UNIT SUBCUT (08:21)
[2023-03-07] MEDS: ipratropium-albuterol 3 mL Neb INHALATION ×2 (08:46→14:16)
[2023-03-07] MEDS: budesonide 0.5 mg/2 mL Neb INHALATION (08:47)
[2023-03-07] MEDS: morphine IR 15 mg Tablet PO (09:58)
[2023-03-07 11:43] LABS: Glucose Point of Care 253 mg/dL (70-110)
[2023-03-07] MEDS: insulin lispro 100 unit/1 mL SUBCUT ×3 (11:47→22:02)
[2023-03-07] MEDS: acetaminophen 500 mg Tablet 1000 MG PO ×2 (13:25→22:02)
--- NOTE | 2023-03-07 14:40 | P.PN_ITS ---
Subjective Subjective: Patient was seen this morning, has no complaints, no fevers, chills, no cough Vitals/I&O/Wt Last Vital Signs Temp 98.0 F 03/07/23 12:59 Pulse 73 03/07/23 14:00 Resp 16 03/07/23 14:00 BP 142/65 03/07/23 12:59 Pulse Ox 96 03/07/23 14:00 O2 Del Method Nasal Cannula 03/07/23 14:00 O2 Flow Rate 2 03/07/23 14:00 03/06/23 03/07/23 03/07/23 22:59 06:59 14:59 Intake Total 890 / 1370 360 / 360 Balance 890 / 1370 360 / 360 Weight last 48 hrs Weight 76.204 kg Weight 76.204 kg Physical Exam Const: COMMON NORMALS: no acute distress and patient oriented x3 Resp: COMMON NORMALS: normal respiratory effort, No retractions, No use of accessory muscles and clear to auscultation bilaterally AUSCULTATION: clear to auscultation bilaterally Cardio: COMMON NORMALS: regular rate, regular rhythm, S1 normal heart sound present and S2 normal heart sound present RATE: regular rate RHYTHM: regular rhythm HEART SOUNDS: S1 normal heart sound present and S2 normal heart sound present GI: COMMON NORMALS: Normal to inspection, nondistended, normoactive bowel sounds present and non-tender Extremity: COMMON NORMALS: no pedal edema Neuro: COMMON NORMALS: patient oriented x3 Psych: COMMON NORMALS: mental status grossly normal Urinary Catheter Management: Ray: Cath Placed During This Visit: yes Reason for Continuing Indwelling Catheter: Other Urinary Catheter Date of Insertion: 02/28/23 Urinary Catheter Time of Insertion: 08:30 Data 03/06/23 06:05 03/06/23 06:05 A&P Assessment and plan (1) Closed fracture of right hip: s/p surgery Orthopedics consult, lovenox for dvt prophylaxis home morphine for pain control Patient would now like to receive physical therapy, declines hospice for now [facility], receiving physical therapy ? PT OT Qualifiers: Encounter type: initial encounter Qualified Code(s): S72.001A - Fracture of unspecified part of neck of right femur, initial encounter for closed fracture (2) Right clavicle fracture: -currently in a sling (3) COVID-19: Associated with chronic hypoxic respiratory failure Isolation precautions (4) Lung cancer: Non-small cell lung cancer ? Right lower lobe, very early stage, diagnosed in 2014 ? Underwent right lower lobe lobectomy, in 2014, -PET in November 2022 shows multistation peter disease along with left lower lobe lung mass.? 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 Last staging was 3B [id number] -Patient as per documentation patient has declined radiation therapy, he had a PET avid GI lesion which he declined colonoscopy -He did not wish to undergo systemic palliative therapy with chemotherapy ? Was agreeable to undergo immunotherapy, received Keytruda 01/22/2023, which was stopped as patient wanted to go onto hospice during his last hospitalization, [facility] Qualifiers: Laterality: unspecified laterality Lung location: unspecified part of lung Qualified Code(s): C34.90 - Malignant neoplasm of unspecified part of unspecified bronchus or lung (5) Type 2 diabetes mellitus: Lantus 10 units every 24 hours ? Moderate dose sliding scale (6) COPD (chronic obstructive pulmonary disease): Not in acute exacerbation Breathing treatments as needed (7) Anemia: Postoperative anemia, requiring 1 unit PRBC, hemoglobin 8.2 (8) Postoperative fever: ? Postoperative fever, afebrile for the last 72 hours ? UA within normal limits, ? Respiratory viral panel shows positive COVID, history of COVID, tested positive at the [facility], but will call and confirm ? Chest x-ray ? 1. Previous right thoracotomy 2.? Markedly abnormal chest x-ray with bullous emphysematous change, interstitial lung disease and scarring.? No significant change masslike opacities, see above.? Findings remain concerning for multifocal neoplasm.? If there is high clinical suspicion for acute process, may want to repeat the chest CT at this time ? Pro-Jerry 0.14, CRP 88.3 ? Continue Rocephin and azithromycin for possible respiratory tract infection, ? Follow blood cultures ? He does complain of calf pain, on the left, we will do venous ultrasound, nega tive for DVT (9) Acute encephalopathy: ? Likely secondary to postoperative state, underlying sundowning, resolving ? It could also be from pain medication, as per patient and family request I decreased his morphine to 15 mg 3 times daily from 30 mg, monitor for withdrawal ? Currently alert oriented x3, following all commands, neurochecks, after precautions, NIH stroke scale (10) Respiratory tract infection: Plan DVT ppx: lovenox Hypercalcemia of malignancy, current calcium is 9.5, monitor Attestations Medical Necessity Statement*: Patient requires hospitalization for hip fracture, requiring PT OT, placement Diagnoses Closed fracture of right hip S72.001A Encounter type: initial encounter Right clavicle fracture S42.001A COVID-19 U07.1 Lung cancer C34.90 Laterality: unspecified laterality Lung location: unspecified part of lung Type 2 diabetes mellitus E11.9 COPD (chronic obstructive pulmonary disease) J44.9 Anemia D64.9 Postoperative fever R50.82 Acute encephalopathy G93.40 Respiratory tract infection J98.8
[2023-03-07 17:12] LABS: Glucose Point of Care 227 mg/dL (70-110)
[2023-03-07] MEDS: cefTRIAXone 1,000 MG in sodium chloride 0.9% (plus) 50 ML 100 MG IV (17:30)
[2023-03-07 20:32] LABS: Glucose Point of Care 310 mg/dL (70-110)
[2023-03-07] MEDS: atorvastatin 40 mg Tablet 80 MG PO (22:01)
[2023-03-07] MEDS: finasteride 5 mg Tablet PO (22:01)
[2023-03-07] MEDS: tamsulosin 0.4 mg Capsule PO (22:01)
[2023-03-08] VITALS (10 sets, daily range): BP systolic 123–154; BP diastolic 54–71; PULSE 62–77; RESP 16–20; TEMP 36.6–37; O2SAT 93–99; BMI 23.4
[2023-03-08] MEDS: morphine ER (12 HR) 15 mg Tablet PO ×3 (06:29→22:41)
[2023-03-08] MEDS: pantoprazole DR 40 mg Tablet PO (06:29)
[2023-03-08] MEDS: escitalopram 10 mg Tablet 20 MG PO (06:29)
[2023-03-08] MEDS: enoxaparin 30 mg/0.3 mL Syringe SUBCUT (06:30)
[2023-03-08] MEDS: metoprolol succinate ER (24 HR) 50 mg Tablet PO (06:30)
[2023-03-08 06:52] LABS: Basophils % 0.1 %; Eosinophils # 0.3 10^3/uL (0.0-0.8); Eosinophils % 3.6 %; Hematocrit 27.1 % (37-53); Lymphocytes # 0.7 10^3/uL (0.8-4.8); Lymphocytes % 9.2 %; Mean Corpuscular Hemoglobin 28.1 pg (27-33); Mean Corpuscular Volume 90.6 fl (82-101); Mean Platelet Volume 9.9 fL (7.4-10.4); Monocytes # 0.6 10^3/uL (0.2-0.9); Monocytes % 8.3 %; Neutrophils # 5.91 10^3/uL (1.8-7.7); Neutrophils % 78.1 %; Nucleated Red Blood Cells % 0 %; Platelet Count 203 10^3/cmm (157-399); Red Blood Count 2.99 10^6/uL (3.85-5.65); Red Cell Distribution Width 14.9 % (12.1-15.1); White Blood Count 7.57 10^3/uL (3.29-11.43)
[2023-03-08 07:45] LABS: Glucose Point of Care 140 mg/dL (70-110)
[2023-03-08] MEDS: budesonide 0.5 mg/2 mL Neb INHALATION ×2 (07:57→20:03)
[2023-03-08] MEDS: ipratropium-albuterol 3 mL Neb INHALATION ×3 (07:57→20:03)
[2023-03-08] MEDS: multivitamin therapeutic Tablet 1 TAB PO (09:44)
[2023-03-08] MEDS: aspirin 81 mg EC Tablet PO (09:44)
[2023-03-08] MEDS: calcium carb-vit d 600mg/400unit 1 Tablet 1 EACH PO ×2 (09:44→17:32)
[2023-03-08] MEDS: clopidogrel 75 mg Tablet PO (09:44)
[2023-03-08] MEDS: iron polysaccharide complex 150 mg Capsule PO ×2 (09:45→17:32)
[2023-03-08] MEDS: BuSPIRONE 10 mg Tablet 7.5 MG PO ×2 (09:45→17:32)
[2023-03-08] MEDS: polyethylene glycol 3350 Pkt 17 gm PO (09:45)
[2023-03-08] MEDS: chlorhexidine gluconate 0.12% Btl 473 mL 30 ML MUCOUS MEM ×4 (09:45→21:50)
[2023-03-08] MEDS: docusate sodium 100 mg Capsule PO ×2 (09:45→17:32)
[2023-03-08] MEDS: insulin glargine 100 units/1 mL 10 UNIT SUBCUT (09:45)
--- NOTE | 2023-03-08 11:04 | PC.SOCIAL ---
IMM Updated Updated pt on IMM. No questions voiced. Provided pt a copy. Initialed dated & timed copy in chart.
[2023-03-08 11:51] LABS: Glucose Point of Care 282 mg/dL (70-110)
[2023-03-08] MEDS: insulin lispro 100 unit/1 mL SUBCUT ×3 (12:47→22:41)
[2023-03-08] MEDS: acetaminophen 500 mg Tablet 1000 MG PO ×2 (12:47→21:50)
--- NOTE | 2023-03-08 12:49 | P.PN_ITS ---
Subjective Subjective: patient see n sitting up in a chair, has no complaints Vitals/I&O/Wt Last Vital Signs Temp 97.9 F 03/08/23 11:54 Pulse 67 03/08/23 11:54 Resp 20 H 03/08/23 11:54 BP 139/54 03/08/23 11:54 Pulse Ox 93 03/08/23 11:54 O2 Del Method Nasal Cannula 03/08/23 11:54 O2 Flow Rate 2 03/08/23 08:00 03/07/23 03/08/23 03/08/23 22:59 06:59 14:59 Intake Total 770 / 1130 360 / 1490 360 / 360 Output Total 1200 / 1200 1000 / 2200 900 / 900 Balance -430 / -70 -640 / -710 -540 / -540 Weight last 48 hrs Weight 76.204 kg Weight 76.204 kg Physical Exam Const: COMMON NORMALS: no acute distress and patient oriented x3 Resp: COMMON NORMALS: normal respiratory effort, No retractions, No use of accessory muscles and clear to auscultation bilaterally AUSCULTATION: clear to auscultation bilaterally Cardio: COMMON NORMALS: regular rate, regular rhythm, S1 normal heart sound present and S2 normal heart sound present RATE: regular rate RHYTHM: regular rhythm HEART SOUNDS: S1 normal heart sound present and S2 normal heart sound present GI: COMMON NORMALS: Normal to inspection, nondistended, normoactive bowel sounds present and non-tender Extremity: COMMON NORMALS: no pedal edema Neuro: COMMON NORMALS: patient oriented x3 Psych: COMMON NORMALS: mental status grossly normal Urinary Catheter Management: Ray: Cath Placed During This Visit: yes Reason for Continuing Indwelling Catheter: Other Urinary Catheter Date of Insertion: 02/28/23 Urinary Catheter Time of Insertion: 08:30 Data 03/08/23 06:31 03/06/23 06:05 A&P Assessment and plan (1) Closed fracture of right hip: s/p surgery Orthopedics consult, lovenox for dvt prophylaxis home morphine for pain control Patient would now like to receive physical therapy, declines hospice for now would like to be discharged to longterm facility on hospice, receiving physical therapy ? PT OT Qualifiers: Encounter type: initial encounter Qualified Code(s): S72.001A - Fracture of unspecified part of neck of right femur, initial encounter for [place] sed fracture (2) Right clavicle fracture: -currently in a sling (3) COVID-19: Associated with chronic hypoxic respiratory failure Isolation precautions (4) Lung cancer: Non-small cell lung cancer ? Right lower lobe, very early stage, diagnosed in 2014 ? Underwent right lower lobe lobectomy, in 2014, -PET in November 2022 shows multistation peter disease along with left lower lobe lung mass.? 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 Last staging was 3B [id number] -Patient as per documentation patient has declined radiation therapy, he had a PET avid GI lesion which he declined colonoscopy -He did not wish to undergo systemic palliative therapy with chemotherapy ? Was agreeable to undergo immunotherapy, received Keytruda 01/22/2023, which was stopped as patient wanted to go onto hospice during his last hospitalization, discharged to longterm facility on hospice Qualifiers: Laterality: unspecified laterality Lung location: unspecified part of lung Qualified Code(s): C34.90 - Malignant neoplasm of unspecified part of unspecified bronchus or lung (5) Type 2 diabetes mellitus: Lantus 10 units every 24 hours ? Moderate dose sliding scale (6) COPD (chronic obstructive pulmonary disease): Not in acute exacerbation Breathing treatments as needed (7) Anemia: Postoperative anemia, requiring 1 unit PRBC, hemoglobin 8.2 (8) Postoperative fever: ? Postoperative fever, afebrile for the last 72 hours ? UA within normal limits, ? Respiratory viral panel shows positive COVID, history of COVID, tested positive at the care home, but will call and confirm ? Chest x-ray ? 1. Previous right thoracotomy 2.? Markedly abnormal chest x-ray with bullous emphysematous change, interstitial lung disease and scarring.? No significant change masslike opacities, see above.? Findings remain concerning for multifocal neoplasm.? If there is high clinical suspicion for acute process, may want to repeat the chest CT at this time ? Pro-Jerry 0.14, CRP 88.3 ? Continue Rocephin and azithromycin for possible respiratory tract infection, ? Follow blood cultures ? He does complain of calf pain, on the left, we will do venous ultrasound, negative for DVT (9) Acute encephalopathy: ? Likely secondary to postoperative state, underlying sundowning, resolving ? It could also be from pain medication, as per patient and family request I decreased his morphine to 15 mg 3 times daily from 30 mg, monitor for withdrawal ? Currently alert oriented x3, following all commands, neurochecks, after precautions, NIH stroke scale (10) Respiratory tract infection: Plan DVT ppx: lovenox Hypercalcemia of malignancy, current calcium is 9.5, monitor Attestations Medical Necessity Statement*: patient requires hospitalization for hip fracture, s/p surgery Diagnoses Closed fracture of right hip S72.001A Encounter type: initial encounter Right clavicle fracture S42.001A COVID-19 U07.1 Lung cancer C34.90 Laterality: unspecified laterality Lung location: unspecified part of lung Type 2 diabetes mellitus E11.9 COPD (chronic obstructive pulmonary disease) J44.9 Anemia D64.9 Postoperative fever R50.82 Acute encephalopathy G93.40 Respiratory tract infection J98.8
[2023-03-08] MEDS: bisacodyl 10 mg Supp PR (15:12)
[2023-03-08 16:59] LABS: Glucose Point of Care 165 mg/dL (70-110)
[2023-03-08] MEDS: cefTRIAXone 1,000 MG in sodium chloride 0.9% (plus) 50 ML 100 MG IV (17:32)
[2023-03-08] MEDS: tamsulosin 0.4 mg Capsule PO (21:49)
[2023-03-08] MEDS: atorvastatin 40 mg Tablet 80 MG PO (21:49)
[2023-03-08] MEDS: finasteride 5 mg Tablet PO (21:50)
[2023-03-08 22:36] LABS: Glucose Point of Care 297 mg/dL (70-110)
[2023-03-09] VITALS (11 sets, daily range): BP systolic 115–128; BP diastolic 58–67; PULSE 55–82; RESP 16–18; TEMP 36.5–37.3; O2SAT 90–100
[2023-03-09 05:03] LABS: Basophils % 0.1 %; Eosinophils # 0.2 10^3/uL (0.0-0.8); Eosinophils % 2.7 %; Hematocrit 27.4 % (37-53); Lymphocytes # 0.7 10^3/uL (0.8-4.8); Lymphocytes % 8.3 %; Mean Corpuscular HGB Conc 29.9 g/dL (30-55); Mean Corpuscular Hemoglobin 27.4 pg (27-33); Mean Corpuscular Volume 91.6 fl (82-101); Mean Platelet Volume 10.3 fL (7.4-10.4); Monocytes # 0.7 10^3/uL (0.2-0.9); Monocytes % 9.2 %; Neutrophils # 6.18 10^3/uL (1.8-7.7); Neutrophils % 78.8 %; Nucleated Red Blood Cells % 0 %; Platelet Count 204 10^3/cmm (157-399); Red Blood Count 2.99 10^6/uL (3.85-5.65); Red Cell Distribution Width 14.6 % (12.1-15.1); White Blood Count 7.84 10^3/uL (3.29-11.43)
[2023-03-09] MEDS: escitalopram 10 mg Tablet 20 MG PO (06:24)
[2023-03-09] MEDS: enoxaparin 30 mg/0.3 mL Syringe SUBCUT (06:25)
[2023-03-09] MEDS: acetaminophen 500 mg Tablet 1000 MG PO ×3 (06:25→20:48)
[2023-03-09] MEDS: morphine ER (12 HR) 15 mg Tablet PO ×3 (06:25→22:00)
[2023-03-09] MEDS: metoprolol succinate ER (24 HR) 50 mg Tablet PO (06:25)
[2023-03-09] MEDS: pantoprazole DR 40 mg Tablet PO (06:25)
[2023-03-09 07:34] LABS: Glucose Point of Care 183 mg/dL (70-110)
[2023-03-09] MEDS: budesonide 0.5 mg/2 mL Neb INHALATION ×2 (08:04→19:48)
[2023-03-09] MEDS: ipratropium-albuterol 3 mL Neb INHALATION ×3 (08:04→19:48)
[2023-03-09] MEDS: multivitamin therapeutic Tablet 1 TAB PO (08:41)
[2023-03-09] MEDS: calcium carb-vit d 600mg/400unit 1 Tablet 1 EACH PO ×2 (08:41→18:12)
[2023-03-09] MEDS: aspirin 81 mg EC Tablet PO (08:42)
[2023-03-09] MEDS: iron polysaccharide complex 150 mg Capsule PO ×2 (08:42→18:13)
[2023-03-09] MEDS: BuSPIRONE 10 mg Tablet 7.5 MG PO ×2 (08:42→18:13)
[2023-03-09] MEDS: clopidogrel 75 mg Tablet PO (08:42)
[2023-03-09] MEDS: docusate sodium 100 mg Capsule PO ×2 (08:42→18:13)
[2023-03-09] MEDS: chlorhexidine gluconate 0.12% Btl 473 mL 30 ML MUCOUS MEM ×4 (08:42→20:48)
[2023-03-09] MEDS: insulin lispro 100 unit/1 mL SUBCUT ×4 (08:43→21:52)
[2023-03-09] MEDS: insulin glargine 100 units/1 mL 10 UNIT SUBCUT (08:43)
[2023-03-09 10:58] LABS: Glucose Point of Care 255 mg/dL (70-110)
--- NOTE | 2023-03-09 14:28 | P.PN_ITS ---
Subjective Subjective: Patient was seen this morning, has no complaints this morning, sitting up in a chair, no fevers, no cough Vitals/I&O/Wt Last Vital Signs Temp 97.7 F 03/09/23 12:00 Pulse 79 03/09/23 14:00 Resp 16 03/09/23 14:00 BP 117/65 03/09/23 12:00 Pulse Ox 96 03/09/23 14:00 O2 Del Method Nasal Cannula 03/09/23 14:00 O2 Flow Rate 2 03/09/23 14:00 03/08/23 03/09/23 03/09/23 22:59 06:59 14:59 Intake Total 290 / 650 480 / 480 Output Total 400 / 1300 575 / 1875 Balance -110 / -650 -575 / -1225 480 / 480 Weight last 48 hrs Weight 85.474 kg Weight 76.204 kg Physical Exam Const: COMMON NORMALS: no acute distress and patient oriented x3 Resp: COMMON NORMALS: normal respiratory effort, No retractions, No use of accessory muscles and clear to auscultation bilaterally AUSCULTATION: clear to auscultation bilaterally Cardio: COMMON NORMALS: regular rate, regular rhythm, S1 normal heart sound present and S2 normal heart sound present RATE: regular rate RHYTHM: regular rhythm HEART SOUNDS: S1 normal heart sound present and S2 normal heart sound present GI: COMMON NORMALS: Normal to inspection, nondistended, normoactive bowel sounds present and non-tender Extremity: COMMON NORMALS: no pedal edema Neuro: COMMON NORMALS: patient oriented x3 Psych: COMMON NORMALS: mental status grossly normal Urinary Catheter Management: Ray: Cath Placed During This Visit: yes, but has since been removed by the nurse Reason for Continuing Indwelling Catheter: Decision to DC Catheter Urinary Catheter Date of Insertion: 02/28/23 Urinary Catheter Time of Insertion: 08:30 Date Urinary Catheter Removed: 03/08/23 Time Urinary Catheter Discontinued: 18:00 Data 03/09/23 04:03 03/06/23 06:05 Micro: Microbiology 03/04/23 08:40 Blood Culture - Final Blood NO GROWTH AFTER 5 DAYS 03/04/23 08:34 Blood Culture - Final Blood NO GROWTH AFTER 5 DAYS A&P Assessment and plan (1) Closed fracture of right hip: s/p surgery Orthopedics consult, lovenox for dvt prophylaxis home morphine for pain control Patient would now like to receive physical therapy, declines hospice for now would like to be discharged to intermediate facility on hospice, receiving physical therapy ? PT OT Qualifiers: Encounter type: initial encounter Qualified Code(s): S72.001A - Fracture of unspecified part of neck of right femur, initial encounter for closed fracture (2) Right clavicle fracture: -currently in a sling (3) COVID-19: Resolved Associated with chronic hypoxic respiratory failure Isolation precautions (4) Lung cancer: Non-small cell lung cancer ? Right lower lobe, very early stage, diagnosed in 2014 ? Underwent right lower lobe lobectomy, in 2014, -PET in November 2022 shows multistation peter disease along with left lower lobe lung mass.? 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 Last staging was 3B [id number] -Patient as per documentation patient has declined radiation therapy, he had a PET avid GI lesion which he declined colonoscopy -He did not wish to undergo systemic palliative therapy with chemotherapy ? Was agreeable to undergo immunotherapy, received Keytruda 01/22/2023, which was stopped as patient wanted to go onto hospice during his last hospitalization, discharged to intermediate facility on hospice Qualifiers: Laterality: unspecified laterality Lung location: unspecified part of lung Qualified Code(s): C34.90 - Malignant neoplasm of unspecified part of unspecified bronchus or lung (5) Type 2 diabetes mellitus: Lantus 10 units every 24 hours ? Moderate dose sliding scale (6) COPD (chronic obstructive pulmonary disease): Not in acute exacerbation Breathing treatments as needed (7) Anemia: Postoperative anemia, requiring 1 unit PRBC, hemoglobin 8.2 (8) Postoperative fever: ? Postoperative fever, resolved ? UA within normal limits, ? Respiratory viral panel shows positive COVID, history of COVID[facility], but will call and confirm ? Chest x-ray ? 1. Previous right thoracotomy 2.? Markedly abnormal chest x-ray with bullous emphysematous change, interstitial lung disease and scarring.? No significant change masslike opacities, see above.? Findings remain concerning for multifocal neoplasm.? If there is high clinical suspicion for acute process, may want to repeat the chest CT at this time ? Pro-Jerry 0.14, CRP 88.3 ? Continue Rocephin and azithromycin for possible respiratory tract infection, ? Follow blood cultures ? He does complain of calf pain, on the left, we will do venous ultrasound, negative for DVT (9) Acute encephalopathy: ? Likely secondary to postoperative state, underlying sundowning, resolving ? It could also be from pain medication, as per patient and family request I decreased his morphine to 15 mg 3 times daily from 30 mg, monitor for withdrawal ? Currently alert oriented x3, following all commands, neurochecks, after precautions, NIH stroke scale (10) Respiratory tract infection: Plan DVT ppx: lovenox Hypercalcemia of malignancy, current calcium is 9.5, monitor Attestations Medical Necessity Statement*: Patient requires hospitalization for hip surgery, status post surgery, PT OT Coding Level of Care Code 67544 Moderate MDM includes number and complexity of problems actively addressed during encounter, amount and/or complexity of data reviewed/ordered and described risk of complication, morbidity or mortality of management as do cumented Diagnoses Closed fracture of right hip S72.001A Encounter type: initial encounter Right clavicle fracture S42.001A COVID-19 U07.1 Lung cancer C34.90 Laterality: unspecified laterality Lung location: unspecified part of lung Type 2 diabetes mellitus E11.9 COPD (chronic obstructive pulmonary disease) J44.9 Anemia D64.9 Postoperative fever R50.82 Acute encephalopathy G93.40 Respiratory tract infection J98.8
[2023-03-09] MEDS: lactulose oral liq 20 gm/30 mL UDC PO (15:04)
[2023-03-09 16:48] LABS: Glucose Point of Care 157 mg/dL (70-110)
[2023-03-09] MEDS: cefTRIAXone 1,000 MG in sodium chloride 0.9% (plus) 50 ML 100 MG IV (18:13)
[2023-03-09] MEDS: atorvastatin 40 mg Tablet 80 MG PO (20:47)
[2023-03-09] MEDS: finasteride 5 mg Tablet PO (20:48)
[2023-03-09] MEDS: tamsulosin 0.4 mg Capsule PO (20:48)
[2023-03-09 21:17] LABS: Glucose Point of Care 207 mg/dL (70-110)
[2023-03-10] VITALS (12 sets, daily range): BP systolic 121–143; BP diastolic 52–69; PULSE 59–82; RESP 16–18; TEMP 36.4–36.7; O2SAT 91–97
[2023-03-10 04:08] LABS: Basophils % 0.4 %; Eosinophils # 0.2 10^3/uL (0.0-0.8); Eosinophils % 2.5 %; Hematocrit 26.6 % (37-53); Lymphocytes # 0.9 10^3/uL (0.8-4.8); Lymphocytes % 10.7 %; Mean Corpuscular HGB Conc 30.5 g/dL (30-55); Mean Corpuscular Hemoglobin 27.6 pg (27-33); Mean Corpuscular Volume 90.8 fl (82-101); Mean Platelet Volume 9.8 fL (7.4-10.4); Monocytes # 0.6 10^3/uL (0.2-0.9); Monocytes % 7.1 %; Neutrophils # 6.42 10^3/uL (1.8-7.7); Neutrophils % 78.9 %; Nucleated Red Blood Cells % 0 %; Platelet Count 204 10^3/cmm (157-399); Red Blood Count 2.93 10^6/uL (3.85-5.65); Red Cell Distribution Width 14.9 % (12.1-15.1); White Blood Count 8.13 10^3/uL (3.29-11.43)
[2023-03-10] MEDS: pantoprazole DR 40 mg Tablet PO (06:03)
[2023-03-10] MEDS: escitalopram 10 mg Tablet 20 MG PO (06:03)
[2023-03-10] MEDS: morphine ER (12 HR) 15 mg Tablet PO ×3 (06:03→23:16)
[2023-03-10] MEDS: enoxaparin 30 mg/0.3 mL Syringe SUBCUT (06:04)
[2023-03-10] MEDS: metoprolol succinate ER (24 HR) 50 mg Tablet PO (06:04)
[2023-03-10] MEDS: acetaminophen 500 mg Tablet 1000 MG PO ×3 (06:04→20:45)
[2023-03-10 06:54] LABS: Glucose Point of Care 171 mg/dL (70-110)
[2023-03-10] MEDS: ipratropium-albuterol 3 mL Neb INHALATION ×3 (07:49→20:51)
[2023-03-10] MEDS: budesonide 0.5 mg/2 mL Neb INHALATION ×2 (07:49→20:51)
[2023-03-10] MEDS: insulin lispro 100 unit/1 mL SUBCUT ×4 (08:21→20:44)
[2023-03-10] MEDS: polyethylene glycol 3350 Pkt 17 gm PO (08:21)
[2023-03-10] MEDS: insulin glargine 100 units/1 mL 10 UNIT SUBCUT (08:21)
[2023-03-10] MEDS: docusate sodium 100 mg Capsule PO ×2 (08:22→17:26)
[2023-03-10] MEDS: multivitamin therapeutic Tablet 1 TAB PO (08:22)
[2023-03-10] MEDS: clopidogrel 75 mg Tablet PO (08:22)
[2023-03-10] MEDS: calcium carb-vit d 600mg/400unit 1 Tablet 1 EACH PO ×2 (08:22→17:26)
[2023-03-10] MEDS: BuSPIRONE 10 mg Tablet 7.5 MG PO ×2 (08:22→17:26)
[2023-03-10] MEDS: aspirin 81 mg EC Tablet PO (08:23)
[2023-03-10] MEDS: iron polysaccharide complex 150 mg Capsule PO ×2 (08:23→17:26)
[2023-03-10] MEDS: chlorhexidine gluconate 0.12% Btl 473 mL 30 ML MUCOUS MEM ×4 (08:23→20:45)
[2023-03-10 11:46] LABS: Glucose Point of Care 222 mg/dL (70-110)
--- NOTE | 2023-03-10 12:52 | P.PN_ITS ---
Subjective Subjective: Patient was seen this morning, he has no complaints this morning, Vitals/I&O/Wt Last Vital Signs Temp 98.1 F 03/10/23 11:46 Pulse 59 L 03/10/23 11:46 Resp 16 03/10/23 11:46 BP 137/59 03/10/23 11:46 Pulse Ox 93 03/10/23 11:46 O2 Del Method Room Air 03/10/23 11:46 O2 Flow Rate 1 03/10/23 07:53 03/09/23 03/10/23 03/10/23 22:59 06:59 14:59 Intake Total 290 / 770 480 / 480 Output Total 250 / 250 800 / 1050 600 / 600 Balance 40 / 520 -800 / -280 -120 / -120 Weight last 48 hrs Weight 74.928 kg Weight 85.474 kg Physical Exam Const: COMMON NORMALS: no acute distress and patient oriented x3 Resp: COMMON NORMALS: normal respiratory effort, No retractions, No use of accessory muscles and clear to auscultation bilaterally AUSCULTATION: clear to auscultation bilaterally Cardio: COMMON NORMALS: regular rate, regular rhythm, S1 normal heart sound present and S2 normal heart sound present RATE: regular rate RHYTHM: regular rhythm HEART SOUNDS: S1 normal heart sound present and S2 normal heart sound present GI: COMMON NORMALS: Normal to inspection, nondistended, normoactive bowel sounds present, non-tender and no bruits Extremity: COMMON NORMALS: no pedal edema Neuro: COMMON NORMALS: patient oriented x3 Psych: COMMON NORMALS: mental status grossly normal Urinary Catheter Management: Ray: Cath Placed During This Visit: yes, but has since been removed by the nurse Reason for Continuing Indwelling Catheter: Decision to DC Catheter Urinary Catheter Date of Insertion: 02/28/23 Urinary Catheter Time of Insertion: 08:30 Date Urinary Catheter Removed: 03/08/23 Time Urinary Catheter Discontinued: 18:00 Data 03/10/23 03:17 03/06/23 06:05 Micro: Microbiology 03/04/23 08:40 Blood Culture - Final Blood NO GROWTH AFTER 5 DAYS 03/04/23 08:34 Blood Culture - Final Blood NO GROWTH AFTER 5 DAYS A&P Assessment and plan (1) Closed fracture of right hip: s/p surgery Orthopedics consult, lovenox for dvt prophylaxis home morphine for pain control Patient would now like to receive physical therapy, declines hospice for now would like to be discharged to senior living facility on hospice, receiving physical therapy ? PT OT Qualifiers: Encounter type: initial encounter Qualified Code(s): S72.001A - Fracture of unspecified part of neck of right femur, initial encounter for closed fracture (2) Right clavicle fracture: -currently in a sling (3) COVID-19: Resolved Associated with chronic hypoxic respiratory failure Isolation precautions (4) Lung cancer: Non-small cell lung cancer ? Right lower lobe, very early stage, diagnosed in 2014 ? Underwent right lower lobe lobectomy, in 2014, -PET in November 2022 shows multistation peter disease along with left lower lobe lung mass.? 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 Last staging was 3B [id number] -Patient as per documentation patient has declined radiation therapy, he had a PET avid GI lesion which he declined colonoscopy -He did not wish to undergo systemic palliative therapy with chemotherapy ? Was agreeable to undergo immunotherapy, received Keytruda 01/22/2023, which was stopped as patient wanted to go onto hospice during his last hospitalization, discharged to senior living facility on hospice Qualifiers: Laterality: unspecified laterality Lung location: unspecified part of lung Qualified Code(s): C34.90 - Malignant neoplasm of unspecified part of unspecified bronchus or lung (5) Type 2 diabetes mellitus: Lantus 10 units every 24 hours ? Moderate dose sliding scale (6) COPD (chronic obstructive pulmonary disease): Not in acute exacerbation Breathing treatments as needed (7) Anemia: Postoperative anemia, requiring 1 unit PRBC, hemoglobin 8.2 (8) Postoperative fever: ? Postoperative fever, resolved ? UA within normal limits, ? Respiratory viral panel shows positive COVID, history of COVID, tested positive at the senior care, but will call and confirm ? Chest x-ray ? 1. Previous right thoracotomy 2.? Markedly abnormal chest x-ray with bullous emphysematous change, interstitial lung disease and scarring.? No significant change masslike opacities, see above.? Findings remain concerning for multifocal neoplasm.? If there is high clinical suspicion for acute process, may want to repeat the chest CT at this time ? Pro-Jerry 0.14, CRP 88.3 ? Continue Rocephin and azithromycin for possible respiratory tract infection, ? Follow blood cultures ? He does complain of calf pain, on the left, we will do venous ultrasound, negative for DVT (9) Acute encephalopathy: ? Likely secondary to postoperative state, underlying sundowning, resolving ? It could also be from pain medication, as per patient and family request I decreased his morphine to 15 mg 3 times daily from 30 mg, monitor for withdrawal ? Currently alert oriented x3, following all commands, neurochecks, after precautions, NIH stroke scale (10) Respiratory tract infection: Plan DVT ppx: lovenox Hypercalcemia of malignancy, current calcium is 9.5, monitor Attestations Medical Necessity Statement*: Patient requires hospitalization, currently awaiting senior care placement Diagnoses Closed fracture of right hip S72.001A Encounter type: initial encounter Right clavicle fracture S42.001A COVID-19 U07.1 Lung cancer C34.90 Laterality: unspecified laterality Lung location: unspecified part of lung Type 2 diabetes mellitus E11.9 COPD (chronic obstructive pulmonary disease) J44.9 Anemia D64.9 Postoperative fever R50.82 Acute encephalopathy G93.40 Respiratory tract infection J98.8
[2023-03-10] MEDS: morphine IR 15 mg Tablet PO (16:12)
[2023-03-10 16:44] LABS: Glucose Point of Care 203 mg/dL (70-110)
[2023-03-10] MEDS: hyDRALAzine 25 mg Tablet PO (18:13)
[2023-03-10 20:38] LABS: Glucose Point of Care 205 mg/dL (70-110)
[2023-03-10] MEDS: tamsulosin 0.4 mg Capsule PO (20:44)
[2023-03-10] MEDS: finasteride 5 mg Tablet PO (20:45)
[2023-03-10] MEDS: atorvastatin 40 mg Tablet 80 MG PO (20:45)
[2023-03-11] VITALS (9 sets, daily range): BP systolic 110–142; BP diastolic 60–72; PULSE 60–99; RESP 15–20; TEMP 36.6–36.9; O2SAT 91–96
[2023-03-11] MEDS: metoprolol succinate ER (24 HR) 50 mg Tablet PO (06:26)
[2023-03-11] MEDS: pantoprazole DR 40 mg Tablet PO (06:26)
[2023-03-11] MEDS: escitalopram 10 mg Tablet 20 MG PO (06:26)
[2023-03-11] MEDS: acetaminophen 500 mg Tablet 1000 MG PO ×2 (06:27→22:32)
[2023-03-11] MEDS: enoxaparin 30 mg/0.3 mL Syringe SUBCUT (06:27)
[2023-03-11] MEDS: morphine ER (12 HR) 15 mg Tablet PO ×3 (06:29→22:34)
[2023-03-11 06:43] LABS: Glucose Point of Care 192 mg/dL (70-110)
[2023-03-11] MEDS: budesonide 0.5 mg/2 mL Neb INHALATION ×2 (07:48→19:50)
[2023-03-11] MEDS: ipratropium-albuterol 3 mL Neb INHALATION ×3 (07:48→19:50)
[2023-03-11] MEDS: insulin lispro 100 unit/1 mL SUBCUT ×3 (09:37→17:21)
[2023-03-11] MEDS: insulin glargine 100 units/1 mL 10 UNIT SUBCUT (09:37)
[2023-03-11] MEDS: BuSPIRONE 10 mg Tablet 7.5 MG PO ×2 (09:37→17:21)
[2023-03-11] MEDS: aspirin 81 mg EC Tablet PO (09:37)
[2023-03-11] MEDS: calcium carb-vit d 600mg/400unit 1 Tablet 1 EACH PO ×2 (09:37→17:21)
[2023-03-11] MEDS: multivitamin therapeutic Tablet 1 TAB PO (09:37)
[2023-03-11] MEDS: iron polysaccharide complex 150 mg Capsule PO ×2 (09:38→17:21)
[2023-03-11] MEDS: polyethylene glycol 3350 Pkt 17 gm PO (09:38)
[2023-03-11] MEDS: clopidogrel 75 mg Tablet PO (09:38)
[2023-03-11] MEDS: chlorhexidine gluconate 0.12% Btl 473 mL 30 ML MUCOUS MEM ×3 (09:38→22:39)
[2023-03-11] MEDS: docusate sodium 100 mg Capsule PO ×2 (09:38→17:21)
[2023-03-11 12:08] LABS: Glucose Point of Care 194 mg/dL (70-110)
--- NOTE | 2023-03-11 13:56 | PC.SOCIAL ---
IMM Update pg 2 of IMM updated and reviewed w/ patient. Copy provided and copy dated, initialed and placed in chart.
--- NOTE | 2023-03-11 16:03 | P.PN_ITS ---
Subjective Subjective: Patient was seen this morning, he has no complaints this morning, he is frustrated about being here in the hospital, and why it is taking so long to place him in a assisted, Vitals/I&O/Wt Last Vital Signs Temp 98.1 F 03/11/23 11:42 Pulse 60 03/11/23 14:24 Resp 19 H 03/11/23 14:24 BP 116/62 03/11/23 11:42 Pulse Ox 96 03/11/23 14:24 O2 Del Method Room Air 03/11/23 14:24 O2 Flow Rate 1 03/10/23 07:53 03/11/23 03/11/23 03/11/23 06:59 14:59 22:59 Intake Total 600 / 600 Output Total 900 / 1900 Balance -900 / -1300 600 / 600 Weight last 48 hrs Weight 71.809 kg Weight 74.928 kg Physical Exam Const: COMMON NORMALS: no acute distress and patient oriented x3 Resp: COMMON NORMALS: normal respiratory effort, No retractions, No use of accessory muscles and clear to auscultation bilaterally AUSCULTATION: clear to auscultation bilaterally Cardio: COMMON NORMALS: regular rate, regular rhythm, S1 normal heart sound present and S2 normal heart sound present RATE: regular rate RHYTHM: regular rhythm HEART SOUNDS: S1 normal heart sound present and S2 normal heart sound present GI: COMMON NORMALS: Normal to inspection, nondistended, normoactive bowel sounds present and non-tender Extremity: COMMON NORMALS: no pedal edema Neuro: COMMON NORMALS: patient oriented x3 Psych: COMMON NORMALS: mental status grossly normal Urinary Catheter Management: Ray: Cath Placed During This Visit: yes, but has since been removed by the nurse Reason for Continuing Indwelling Catheter: Decision to DC Catheter Urinary Catheter Date of Insertion: 02/28/23 Urinary Catheter Time of Insertion: 08:30 Date Urinary Catheter Removed: 03/08/23 Time Urinary Catheter Discontinued: 18:00 Data 03/10/23 03:17 03/06/23 06:05 A&P Assessment and plan (1) Closed fracture of right hip: s/p surgery Orthopedics consult, lovenox for dvt prophylaxis home morphine for pain control Patient would now like to receive physical therapy, declines hospice for now would like to be discharged to intermediate facility on hospice, receiving physical therapy ? PT OT Qualifiers: Encounter type: initial encounter Qualified Code(s): S72.001A - Fracture of unspecified part of neck of right femur, initial encounter for closed fracture (2) Right clavicle fracture: -currently in a sling (3) COVID-19: Resolved Associated with chronic hypoxic respiratory failure Isolation precautions (4) Lung cancer: Non-small cell lung cancer ? Right lower lobe, very early stage, diagnosed in 2014 ? Underwent right lower lobe lobectomy, in 2014, -PET in November 2022 shows multistation peter disease along with left lower lobe lung mass.? 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 Last staging was 3B [id number] -Patient as per documentation patient has declined radiation therapy, he had a PET avid GI lesion which he declined colonoscopy -He did not wish to undergo systemic palliative therapy with chemotherapy ? Was agreeable to undergo immunotherapy, received Keytruda 01/22/2023, which was stopped as patient wanted to go onto hospice during his last hospitalization, discharged to intermediate facility on hospice Qualifiers: Laterality: unspecified laterality Lung location: unspecified part of lung Qualified Code(s): C34.90 - Malignant neoplasm of unspecified part of unspecified bronchus or lung (5) Type 2 diabetes mellitus: Lantus 10 units every 24 hours ? Moderate dose sliding scale (6) COPD (chronic obstructive pulmonary disease): Not in acute exacerbation Breathing treatments as needed (7) Anemia: Postoperative anemia, requiring 1 unit PRBC, hemoglobin 8.2 (8) Postoperative fever: ? Postoperative fever, resolved ? UA within normal limits, ? Respiratory viral panel shows positive COVID, history of COVID, tested positive at the assisted, but will call and confirm ? Chest x-ray ? 1. Previous right thoracotomy 2.? Markedly abnormal chest x-ray with bullous emphysematous change, interstitial lung disease and scarring.? No significant change masslike opacities, see above.? Findings remain concerning for multifocal neoplasm.? If there is high clinical suspicion for acute process, may want to repeat the chest CT at this time ? Pro-Jerry 0.14, CRP 88.3 ? Continue Rocephin and azithromycin for possible respiratory tract infection, ? Follow blood cultures ? He does complain of calf pain, on the left, we will do venous ultrasound, negative for DVT (9) Acute encephalopathy: ? Likely secondary to postoperative state, underlying sundowning, resolving ? It could also be from pain medication, as per patient and family request I decreased his morphine to 15 mg 3 times daily from 30 mg, monitor for withdrawal ? Currently alert oriented x3, following all commands, neurochecks, after precautions, NIH stroke scale (10) Respiratory tract infection: Plan DVT ppx: lovenox Hypercalcemia of malignancy, current calcium is 9.5, monitor Attestations Medical Necessity Statement*: Patient requires hospitalization placement in a assisted facility awaited Diagnoses Closed fracture of right hip S72.001A Encounter type: initial encounter Right clavicle fracture S42.001A COVID-19 U07.1 Lung cancer C34.90 Laterality: unspecified laterality Lung location: unspecified part of lung Type 2 diabetes mellitus E11.9 COPD (chronic obstructive pulmonary disease) J44.9 Anemia D64.9 Postoperative fever R50.82 Acute encephalopathy G93.40 Respiratory tract infection J98.8
[2023-03-11 17:51] LABS: Glucose Point of Care 185 mg/dL (70-110)
[2023-03-11 21:37] LABS: Glucose Point of Care 140 mg/dL (70-110)
[2023-03-11] MEDS: tamsulosin 0.4 mg Capsule PO (22:32)
[2023-03-11] MEDS: atorvastatin 40 mg Tablet 80 MG PO (22:32)
[2023-03-11] MEDS: finasteride 5 mg Tablet PO (22:32)
[2023-03-12 00:32] VITALS: BP 135/71; PULSE 70; RESP 17; TEMP 36.9; O2SAT 91
[2023-03-12] MEDS: escitalopram 10 mg Tablet 20 MG PO (06:30)
[2023-03-12] MEDS: enoxaparin 30 mg/0.3 mL Syringe SUBCUT (06:30)
[2023-03-12] MEDS: pantoprazole DR 40 mg Tablet PO (07:00)
[2023-03-12] MEDS: metoprolol succinate ER (24 HR) 50 mg Tablet PO (07:00)
[2023-03-12 08:22] LABS: Glucose Point of Care 157 mg/dL (70-110)
[2023-03-12] MEDS: budesonide 0.5 mg/2 mL Neb INHALATION (08:45)
[2023-03-12] MEDS: ipratropium-albuterol 3 mL Neb INHALATION ×2 (08:45→15:03)
[2023-03-12 08:47] VITALS: PULSE 64; RESP 18; O2SAT 98
[2023-03-12] MEDS: insulin lispro 100 unit/1 mL SUBCUT ×4 (08:55→22:00)
[2023-03-12] MEDS: insulin glargine 100 units/1 mL 10 UNIT SUBCUT (08:56)
[2023-03-12] MEDS: docusate sodium 100 mg Capsule PO ×2 (09:00→18:36)
[2023-03-12] MEDS: BuSPIRONE 10 mg Tablet 7.5 MG PO ×2 (09:00→18:36)
[2023-03-12] MEDS: clopidogrel 75 mg Tablet PO (09:00)
[2023-03-12] MEDS: calcium carb-vit d 600mg/400unit 1 Tablet 1 EACH PO ×2 (09:00→18:35)
[2023-03-12] MEDS: aspirin 81 mg EC Tablet PO (09:01)
[2023-03-12] MEDS: iron polysaccharide complex 150 mg Capsule PO ×2 (09:03→18:36)
[2023-03-12] MEDS: polyethylene glycol 3350 Pkt 17 gm PO (09:07)
[2023-03-12] MEDS: multivitamin therapeutic Tablet 1 TAB PO (09:07)
[2023-03-12] MEDS: chlorhexidine gluconate 0.12% Btl 473 mL 30 ML MUCOUS MEM ×4 (09:07→22:01)
--- NOTE | 2023-03-12 09:57 | PC.CHAP ---
Pastoral Care Encounter/Spiritual Assessment Type of Contact [] Declined heat treatment technician visit [] Patient/Family/Request visit [] Outpatient visit [] Follow-up visit [] Physician referral [] Code/Alert [x] Routine visit [] Staff referral [] Actively dying [] Patient sleeping [] Family support [] [] Out of room [] Palliative care [] [] Receiving care in room [] Pre-surgical visit [] Trauma [] Long length of stay [] ICU visit [] Other: Relational/Emotional Strength [x] Patient feels connected with others/family/visitors/staff [] Distress [] Loneliness/isolation [] Abandonment Spirituality of Patient [x] Person of Rae [] Attends Denominational of their Rae [x] Believes in Prayer [] Reads Bible or Confucianist materials [] There are Spiritual issues to be addressed Instructor Private Interventions [x] Prayer [] Active listening [] Non-anxious presence [x] Spiritual/emotional support [] Crisis/trauma care [] Spiritual counseling [] Bereavement support [] Provided bereavement packet [] Provided Bible/devotional materials [] Provided toy/stuffed animal, coloring book to patient or family member [] Provided Communion [] Anointing/[place] [] Salvation [] Completed spiritual assessment [] Other: Impact on Illness or Injury [] Angry [] Fearful [] Anxious [] Often cries [] Exhaustion [] Unable to work [] Unable to attend faith [] Unable to walk/stand [] Unable to read [] Unable to drive [] Unable to eat/drink [] Unable to sleep [] Unable to be with family [] Patient intubated [] Other: Summary Time spent with patient 5 min
[2023-03-12 12:00] VITALS: BP 138/82; PULSE 92; RESP 19; TEMP 37.1; O2SAT 96
[2023-03-12 12:12] LABS: Glucose Point of Care 244 mg/dL (70-110)
--- NOTE | 2023-03-12 12:48 | P.PN_ITS ---
Subjective 2 Subjective: Patient was seen this morning, he sitting up in a chair, has no complaints this morning no fevers, chills, cough Vitals/I&O/Wt Last Vital Signs Temp 98.5 F 03/12/23 00:32 Pulse 64 03/12/23 08:47 Resp 18 03/12/23 08:47 BP 135/71 03/12/23 00:32 Pulse Ox 98 03/12/23 08:47 O2 Del Method Nasal Cannula 03/12/23 08:47 O2 Flow Rate 2 03/12/23 08:47 03/11/23 03/12/23 03/12/23 22:59 06:59 14:59 Intake Total 240 / 840 480 / 480 Output Total 250 / 250 Balance 240 / 840 -250 / 590 480 / 480 Weight last 48 hrs Weight 71.809 kg Physical Exam 2 Const: COMMON NORMALS: no acute distress and patient oriented x3 Resp: COMMON NORMALS: normal respiratory effort, No retractions, No use of accessory muscles and clear to auscultation bilaterally AUSCULTATION: clear to auscultation bilaterally Cardio: COMMON NORMALS: regular rate, regular rhythm, S1 normal heart sound present and S2 normal heart sound present RATE: regular rate RHYTHM: r egular rhythm HEART SOUNDS: S1 normal heart sound present and S2 normal heart sound present GI: COMMON NORMALS: Normal to inspection, nondistended, normoactive bowel sounds present and non-tender Extremity: COMMON NORMALS: no pedal edema Neuro: COMMON NORMALS: patient oriented x3 Psych: COMMON NORMALS: mental status grossly normal Urinary Catheter Management: Ray: Cath Placed During This Visit: yes, but has since been removed by the nurse Reason for Continuing Indwelling Catheter: Decision to DC Catheter Urinary Catheter Date of Insertion: 02/28/23 Urinary Catheter Time of Insertion: 08:30 Date Urinary Catheter Removed: 03/08/23 Time Urinary Catheter Discontinued: 18:00 Data 03/10/23 03:17 03/06/23 06:05 A&P Assessment and plan (1) Closed fracture of right hip: s/p surgery Orthopedics consult, lovenox for dvt prophylaxis home morphine for pain control Patient would now like to receive physical therapy, declines hospice for now would like to be discharged to retirement facility on hospice, receiving physical therapy ? PT OT Qualifiers: Encounter type: initial encounter Qualified Code(s): S72.001A - Fracture of unspecified part of neck of right femur, initial encounter for closed fracture (2) Right clavicle fracture: -currently in a sling (3) COVID-19: Resolved Associated with chronic hypoxic respiratory failure Isolation precautions (4) Lung cancer: Non-small cell lung cancer ? Right lower lobe, very early stage, diagnosed in 2014 ? Underwent right lower lobe lobectomy, in 2014, -PET in November 2022 shows multistation peter disease along with left lower lobe lung mass.? 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 Last staging was 3B [id number] -Patient as per documentation patient has declined radiation therapy, he had a PET avid GI lesion which he declined colonoscopy -He did not wish to undergo systemic palliative therapy with chemotherapy ? Was agreeable to undergo immunotherapy, received Keytruda 01/22/2023, which was stopped as patient wanted to go onto hospice during his last hospitalization, discharged to [facility] facility on hospice Qualifiers: Laterality: unspecified laterality Lung location: unspecified part of lung Qualified Code(s): C34.90 - Malignant neoplasm of unspecified part of unspecified bronchus or lung (5) Type 2 diabetes mellitus: Lantus 10 units every 24 hours ? Moderate dose sliding scale (6) COPD (chronic obstructive pulmonary disease): Not in acute exacerbation Breathing treatments as needed (7) Anemia: Postoperative anemia, requiring 1 unit PRBC, hemoglobin 8.2 (8) Postoperative fever: ? Postoperative fever, resolved ? UA within normal limits, ? Respiratory viral panel shows positive COVID, history of COVID, tested positive at the halfway, but will call and confirm ? Chest x-ray ? 1. Previous right thoracotomy 2.? Markedly abnormal chest x-ray with bullous emphysematous change, interstitial lung disease and scarring.? No significant change masslike opacities, see above.? Findings remain concerning for multifocal neoplasm.? If there is high clinical suspicion for acute process, may want to repeat the chest CT at this time ? Pro-Jerry 0.14, CRP 88.3 ? Continue Rocephin and azithromycin for possible respiratory tract infection, ? Follow blood cultures ? He does complain of calf pain, on the left, we will do venous ultrasound, negative for DVT (9) Acute encephalopathy: ? Likely secondary to postoperative state, underlying sundowning, resolving ? It could also be from pain medication, as per patient and family request I decreased his morphine to 15 mg 3 times daily from 30 mg, monitor for withdrawal ? Currently alert oriented x3, following all commands, neurochecks, after precautions, NIH stroke scale (10) Respiratory tract infection: Plan DVT ppx: lovenox Hypercalcemia of malignancy, current calcium is 9.5, monitor Attestations 2 Medical Necessity Statement*: Patient requires hospitalization, Awaiting halfway placement Diagnoses Closed fracture of right hip S72.001A Encounter type: initial encounter Right clavicle fracture S42.001A COVID-19 U07.1 Lung cancer C34.90 Laterality: unspecified laterality Lung location: unspecified part of lung Type 2 diabetes mellitus E11.9 COPD (chronic obstructive pulmonary disease) J44.9 Anemia D64.9 Postoperative fever R50.82 Acute encephalopathy G93.40 Respiratory tract infection J98.8
[2023-03-12] MEDS: acetaminophen 500 mg Tablet 1000 MG PO ×2 (14:19→22:02)
[2023-03-12 15:04] VITALS: PULSE 60; RESP 18; O2SAT 98
[2023-03-12 16:00] VITALS: BP 120/60; PULSE 60; RESP 18; TEMP 36.6; O2SAT 96
[2023-03-12] MEDS: morphine ER (12 HR) 15 mg Tablet PO ×2 (16:21→22:03)
[2023-03-12 17:27] LABS: Glucose Point of Care 175 mg/dL (70-110)
[2023-03-12 20:00] VITALS: BP 127/67; PULSE 60; PULSE 66; RESP 17; TEMP 36.5; O2SAT 96; O2SAT 99
[2023-03-12 21:54] LABS: Glucose Point of Care 156 mg/dL (70-110)
[2023-03-12] MEDS: tamsulosin 0.4 mg Capsule PO (22:01)
[2023-03-12] MEDS: atorvastatin 40 mg Tablet 80 MG PO (22:01)
[2023-03-12] MEDS: finasteride 5 mg Tablet PO (22:01)
[2023-03-13] VITALS (9 sets, daily range): BP systolic 108–158; BP diastolic 50–75; PULSE 51–70; RESP 16–18; TEMP 36.4–36.8; O2SAT 94–98
[2023-03-13] MEDS: acetaminophen 500 mg Tablet 1000 MG PO ×3 (06:18→21:02)
[2023-03-13] MEDS: metoprolol succinate ER (24 HR) 50 mg Tablet PO (06:18)
[2023-03-13] MEDS: pantoprazole DR 40 mg Tablet PO (06:18)
[2023-03-13] MEDS: morphine ER (12 HR) 15 mg Tablet PO ×2 (06:18→18:08)
[2023-03-13] MEDS: enoxaparin 30 mg/0.3 mL Syringe SUBCUT (06:19)
[2023-03-13] MEDS: escitalopram 10 mg Tablet 20 MG PO (06:19)
[2023-03-13 07:16] LABS: Glucose Point of Care 185 mg/dL (70-110)
[2023-03-13] MEDS: aspirin 81 mg EC Tablet PO (08:07)
[2023-03-13] MEDS: iron polysaccharide complex 150 mg Capsule PO ×2 (08:07→18:10)
[2023-03-13] MEDS: BuSPIRONE 10 mg Tablet 7.5 MG PO ×2 (08:07→18:07)
[2023-03-13] MEDS: polyethylene glycol 3350 Pkt 17 gm PO (08:07)
[2023-03-13] MEDS: clopidogrel 75 mg Tablet PO (08:07)
[2023-03-13] MEDS: docusate sodium 100 mg Capsule PO ×2 (08:07→18:07)
[2023-03-13] MEDS: multivitamin therapeutic Tablet 1 TAB PO (08:08)
[2023-03-13] MEDS: insulin lispro 100 unit/1 mL SUBCUT ×3 (08:08→22:34)
[2023-03-13] MEDS: calcium carb-vit d 600mg/400unit 1 Tablet 1 EACH PO ×2 (08:08→18:08)
[2023-03-13] MEDS: chlorhexidine gluconate 0.12% Btl 473 mL 30 ML MUCOUS MEM ×4 (08:09→21:02)
[2023-03-13] MEDS: insulin glargine 100 units/1 mL 10 UNIT SUBCUT (08:19)
[2023-03-13] MEDS: ipratropium-albuterol 3 mL Neb INHALATION ×2 (08:56→21:37)
[2023-03-13] MEDS: budesonide 0.5 mg/2 mL Neb INHALATION ×2 (08:56→21:37)
[2023-03-13 11:51] LABS: Glucose Point of Care 236 mg/dL (70-110)
--- NOTE | 2023-03-13 13:29 | P.PN_ITS ---
Subjective 2 Subjective: Patient was seen this morning, he has no complaints this morning, Vitals/I&O/Wt Last Vital Signs Temp 98.3 F 03/13/23 07:53 Pulse 58 L 03/13/23 11:37 Resp 18 03/13/23 11:37 BP 124/50 03/13/23 11:37 Pulse Ox 98 03/13/23 11:37 O2 Del Method Nasal Cannula 03/13/23 11:37 O2 Flow Rate 2 03/13/23 08:57 03/12/23 03/13/23 03/13/23 22:59 06:59 14:59 Intake Total 240 / 720 360 / 360 Output Total 200 / 400 175 / 175 Balance 240 / 520 -200 / 320 185 / 185 Weight last 48 hrs Weight 74.474 kg Physical Exam 2 Const: COMMON NORMALS: no acute distress and patient oriented x3 Neck/C-Spine: COMMON NORMALS: no JVD Resp: COMMON NORMALS: normal respiratory effort, No retractions, No use of accessory muscles and clear to auscultation bilaterally AUSCULTATION: clear to auscultation bilaterally Cardio: COMMON NORMALS: no JVD, regular rate, regular rhythm, S1 normal heart sound present and S2 normal heart sound present RATE: regular rate RHYTHM: regular rhythm HEART SOUNDS: S1 normal heart sound present and S2 normal heart sound present GI: COMMON NORMALS: Normal to inspection, nondistended, normoactive bowel sounds present and non-tender Extremity: COMMON NORMALS: no pedal edema Neuro: COMMON NORMALS: patient oriented x3 Urinary Catheter Management: Ray: Cath Placed During This Visit: yes, but has since been removed by the nurse Reason for Continuing Indwelling Catheter: Decision to DC Catheter Urinary Catheter Date of Insertion: 02/28/23 Urinary Catheter Time of Insertion: 08:30 Date Urinary Catheter Removed: 03/08/23 Time Urinary Catheter Discontinued: 18:00 Data 03/10/23 03:17 03/06/23 06:05 A&P Assessment and plan (1) Closed fracture of right hip: s/p surgery Orthopedics consult, lovenox for dvt prophylaxis home morphine for pain control Patient would now like to receive physical therapy, declines hospice for now would like to be discharged to [facility] facility on hospice, receiving physical therapy ? PT OT Qualifiers: Encounter type: initial encounter Qualified Code(s): S72.001A - Fracture of unspecified part of neck of right femur, initial encounter for closed fracture (2) Right clavicle fracture: -currently in a sling (3) COVID-19: Resolved Associated with chronic hypoxic respiratory failure Isolation precautions (4) Lung cancer: Non-small cell lung cancer ? Right lower lobe, very early stage, diagnosed in 2014 ? Underwent right lower lobe lobectomy, in 2014, -PET in November 2022 shows multistation peter disease along with left lower lobe lung mass.? 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 Last staging was 3B [id number] -Patient as per documentation patient has declined radiation therapy, he had a PET avid GI lesion which he declined colonoscopy -He did not wish to undergo systemic palliative therapy with chemotherapy ? Was agreeable to undergo immunotherapy, received Keytruda 01/22/2023, which was stopped as patient wanted to go onto hospice during his last hospitalization, discharged to [facility] facility on hospice Qualifiers: Laterality: unspecified laterality Lung location: unspecified part of lung Qualified Code(s): C34.90 - Malignant neoplasm of unspecified part of unspecified bronchus or lung (5) Type 2 diabetes mellitus: Lantus 10 units every 24 hours ? Moderate dose sliding scale (6) COPD (chronic obstructive pulmonary disease): Not in acute exacerbation Breathing treatments as needed (7) Anemia: Postoperative anemia, requiring 1 unit PRBC, hemoglobin 8.2 (8) Postoperative fever: ? Postoperative fever, resolved ? UA within normal limits, ? Respiratory viral panel shows positive COVID, history of COVID, tested positive at the senior living, but will call and confirm ? Chest x-ray ? 1. Previous right thoracotomy 2.? Markedly abnormal chest x-ray with bullous emphysematous change, interstitial lung disease and scarring.? No significant change masslike opacities, see above.? Findings remain concerning for multifocal neoplasm.? If there is high clinical suspicion for acute process, may want to repeat the chest CT at this time ? Pro-Jerry 0.14, CRP 88.3 ? Continue Rocephin and azithromycin for possible respiratory tract infection, ? Follow blood cultures ? He does complain of calf pain, on the left, we will do venous ultrasound, negative for DVT (9) Acute encephalopathy: ? Likely secondary to postoperative state, underlying sundowning, resolving ? It could also be from pain medication, as per patient and family request I decreased his morphine to 15 mg 3 times daily from 30 mg, monitor for withdrawal ? Currently alert oriented x3, following all commands, neurochecks, after precautions, NIH stroke scale (10) Respiratory tract infection: Plan DVT ppx: lovenox Hypercalcemia of malignancy, current calcium is 9.5, monitor Attestations 2 Medical Necessity Statement*: Patient requires hospitalization for senior living placement Diagnoses Closed fracture of right hip S72.001A Encounter type: initial encounter Right clavicle fracture S42.001A COVID-19 U07.1 Lung cancer C34.90 Laterality: unspecified laterality Lung location: unspecified part of lung Type 2 diabetes mellitus E11.9 COPD (chronic obstructive pulmonary disease) J44.9 Anemia D64.9 Postoperative fever R50.82 Acute encephalopathy G93.40 Respiratory tract infection J98.8
[2023-03-13 17:12] LABS: Glucose Point of Care 119 mg/dL (70-110)
[2023-03-13] MEDS: finasteride 5 mg Tablet PO (21:02)
[2023-03-13] MEDS: atorvastatin 40 mg Tablet 80 MG PO (21:02)
[2023-03-13] MEDS: tamsulosin 0.4 mg Capsule PO (21:02)
[2023-03-13 22:04] LABS: Glucose Point of Care 155 mg/dL (70-110)
[2023-03-14] VITALS (7 sets, daily range): BP systolic 117–141; BP diastolic 40–80; PULSE 56–90; RESP 16–17; TEMP 36.4; O2SAT 91–98
[2023-03-14] MEDS: morphine ER (12 HR) 15 mg Tablet PO ×2 (00:33→06:34)
[2023-03-14] MEDS: enoxaparin 30 mg/0.3 mL Syringe SUBCUT (06:34)
[2023-03-14] MEDS: escitalopram 10 mg Tablet 20 MG PO (06:34)
[2023-03-14] MEDS: pantoprazole DR 40 mg Tablet PO (06:34)
[2023-03-14] MEDS: metoprolol succinate ER (24 HR) 50 mg Tablet PO (06:34)
[2023-03-14 06:44] LABS: Glucose Point of Care 148 mg/dL (70-110)
[2023-03-14] MEDS: ipratropium-albuterol 3 mL Neb INHALATION (07:56)
[2023-03-14] MEDS: budesonide 0.5 mg/2 mL Neb INHALATION (07:56)
[2023-03-14] MEDS: polyethylene glycol 3350 Pkt 17 gm PO (08:09)
[2023-03-14] MEDS: calcium carb-vit d 600mg/400unit 1 Tablet 1 EACH PO (08:09)
[2023-03-14] MEDS: BuSPIRONE 10 mg Tablet 7.5 MG PO (08:09)
[2023-03-14] MEDS: aspirin 81 mg EC Tablet PO (08:09)
[2023-03-14] MEDS: clopidogrel 75 mg Tablet PO (08:12)
[2023-03-14] MEDS: iron polysaccharide complex 150 mg Capsule PO (08:12)
[2023-03-14] MEDS: multivitamin therapeutic Tablet 1 TAB PO (08:12)
[2023-03-14] MEDS: docusate sodium 100 mg Capsule PO (08:12)
[2023-03-14] MEDS: insulin lispro 100 unit/1 mL SUBCUT ×2 (08:13→12:33)
[2023-03-14] MEDS: insulin glargine 100 units/1 mL 10 UNIT SUBCUT (08:13)
[2023-03-14] MEDS: chlorhexidine gluconate 0.12% Btl 473 mL 30 ML MUCOUS MEM ×2 (08:13→15:07)
[2023-03-14 11:13] LABS: Glucose Point of Care 178 mg/dL (70-110)
--- NOTE | 2023-03-14 12:59 | P.DS_ITS ---
Discharge Providers Date of Admission: 02/27/23 19:42 Date of Discharge: March 14, 2023 Attending Provider at Admission: Aleksandr Colin MD Attending Provider at Discharge: Celso Marquis MD Primary Care Provider: Daniel Leyva DO Diagnoses at Discharge Discharge Diagnosis (1) Closed fracture of right hip: Status: Acute Qualifiers: Encounter type: initial encounter Qualified Code(s): S72.001A - Fracture of unspecified part of neck of right femur, initial encounter for closed fracture (2) Right clavicle fracture: Status: Acute (3) COVID-19: Status: Resolved (4) Lung cancer: Status: Acute Qualifiers: Laterality: unspecified laterality Lung location: unspecified part of lung Qualified Code(s): C34.90 - Malignant neoplasm of unspecified part of unspecified bronchus or lung (5) Type 2 diabetes mellitus: Status: Acute (6) COPD (chronic obstructive pulmonary disease): Status: Acute (7) Anemia: Status: Acute (8) Postoperative fever: Status: Resolved (9) Acute encephalopathy: Status: Resolved (10) Respiratory tract infection: Status: Resolved Reason for Visit Reason for Visit: Covid, Hip fx Hospital Course Hospital Course Moses Cardoza is a 73 year old male with a past medical history significant for COPD, congestive heart failure, type 2 diabetes mellitus, lung cancer and pulmonary emboli who presents to the emergency department with hip pain after fall last night. Reports exertion worsens pain. Rest improves pain. Rates pain currently 10 out of 10. Endorses associated with right shoulder pain following the fall. In the ED, patient was found to have right femur intertrochanteric fracture. He was also found to be COVID-19 positive. He denies fevers, chills, nausea, or vomiting. Discharge patient was admitted to [facility] for a close fracture right hip, status post surgical invention, discharged on Lovenox for DVT prophylaxis, morphine for pain control, to residential facility, For his right clavicular fracture, currently in a sling, discharged with a sling in place, His hospital course was complicated with postoperative fevers, likely sec to respiratory viral infection managed with antibiotic therapy, remained afebrile, clinically proved,, pleated antibiotic therapy as inpatient, In terms of his goals of care, in terms of his non-small cell lung cancer, patient did not want to receive any palliative chemotherapy, did not want to receive any chemotherapy, we discussed immunotherapy, discussed risk and benefits of immunotherapy, as he was on hospice immunotherapy was discontinued. As now he is can be discharged to residential facility I asked him if he wanted to go back on immunotherapy he tells me for the time being he does not want to go back on immunotherapy. He is considering after he completes physical therapy at the residential facility he will consider going back on hospice. He tells me that he had a bad experience with hospice at the nursing facility that he was at, he tells me that they just left him there to in his own words, they did not help him, they just gave him pain medications and left him alone. I had extensive discussion with him about the goals of hospice, after discussing the risk and benefits, he voiced understanding, all questions answered, for now he does not want to go back on hospice. He wants to have residential facility at the half-way. In terms of treatment for his cancer, he understands that without immunotherapy there is a risk of the cancer progressing potentially worsening, morbidity and mortality associated, risk of , risk of deconditioning, risk of metastasis. After discussing the risk and benefits of immunotherapy he voiced understanding, all questions answered for now he does not want to be put back immunotherapy and he does not have any plans of being put back on immunotherapy. In terms of further treatment for his cancer, for now he does not want to have any treatment for his cancer, he understands the morbidity and mortality associate with his cancer, risk of metastasis, risk of spreading, he voices understanding, all questions answered, for now he does not want to have any treatment for his cancer. However he does want to follow-up with his cancer doctor in the near future. Physical Exam Const: COMMON NORMALS: no acute distress and patient oriented x3 Resp: COMMON NORMALS: normal respiratory effort, No retractions, No use of accessory muscles and clear to auscultation bilaterally AUSCULTATION: clear to auscultation bilaterally Cardio: COMMON NORMALS: regular rate, regular rhythm, S1 normal heart sound present and S2 normal heart sound present RATE: regular rate RHYTHM: regular rhythm HEART SOUNDS: S1 normal heart sound present and S2 normal heart sound present GI: COMMON NORMALS: Normal to inspection, nondistended, normoactive bowel sounds present and non-tender Extremity: COMMON NORMALS: no pedal edema Neuro: COMMON NORMALS: patient oriented x3 Psych: COMMON NORMALS: mental status grossly normal Urinary Catheter Management: Ray: Cath Placed During This Visit: yes, but has since been removed by the nurse Reason for Continuing Indwelling Catheter: Decision to DC Catheter Urinary Catheter Date of Insertion: 02/28/23 Urinary Catheter Time of Insertion: 08:30 Date Urinary Catheter Removed: 03/08/23 Time Urinary Catheter Discontinued: 18:00 Discharge Data Studies Completed and Pending Completed Studies During Hospitalization Category Date Time Status XR chest 1V portable [id number] Routine Exams 03/04/23 08:02 Completed XR chest 1V portable [id number] Stat Exams 02/27/23 16:12 Completed XR femur RT min 2V* [id number] Routine Exams 02/27/23 21:17 Completed XR hip LT 2-3V wo/w pel* [id number] Stat Exams 02/27/23 17:43 Completed XR hip RT 2-3V wo/w pel* [id number] Routine Exams 02/28/23 Completed XR hip RT 2-3V wo/w pel* [id number] Routine Exams 02/28/23 10:01 Completed XR hip RT 2-3V wo/w pel* [id number] Stat Exams 02/27/23 16:05 Completed XR knee RT 1-2V [id number] Routine Exams 02/27/23 21:17 Completed XR shoulder RT min 2V* [id number] Stat Exams 02/27/23 16:05 [place] [id number] Routine Ultrasound 03/04/23 16:53 Completed Radiology Impressions Shoulder X-Ray 02/27/23 16:05 IMPRESSION: Degenerative changes without acute findings. Femur X-Ray 02/27/23 21:17 IMPRESSION: 1. Angulated intertrochanteric fracture of the proximal femur. Distal femur is intact. 2. Mild knee osteoarthritis with meniscal chondrocalcinosis. Knee X-Ray 02/27/23 21:17 IMPRESSION: Mild tricompartmental osteoarthritis with meniscal chondrocalcinosis. Findings suggest underlying calcium pyrophosphate deposition disease. Chest X-Ray 03/04/23 08:02 IMPRESSION: 1. Previous right thoracotomy 2. Markedly abnormal chest x-ray with bullous emphysematous change, interstitial lung disease and scarring. No significant change masslike opacities, see above. Findings remain concerning for multifocal neoplasm. If there is high clinical suspicion for acute process, may want to repeat the chest CT at this time Laboratory Results WBC 8.13 10^3/uL (3.29-11.43) 03/10/23 03:17 RBC 2.93 10^6/uL (3.85-5.65) L 03/10/23 03:17 Hgb 8.10 g/dL (11.27-16.99) L 03/10/23 03:17 Hct 26.6 % (37-53) L 03/10/23 03:17 MCV 90.8 fl (82-101) 03/10/23 03:17 MCH 27.6 pg (27-33) 03/10/23 03:17 MCHC 30.5 g/dL (30-55) 03/10/23 03:17 RDW 14.9 % (12.1-15.1) 03/10/23 03:17 Plt Count 204 10^3/cmm (157-399) 03/10/23 03:17 MPV 9.8 fL (7.4-10.4) 03/10/23 03:17 Neut % (Auto) 78.9 % 03/10/23 03:17 Lymph % (Auto) 10.7 % 03/10/23 03:17 [place] % (Auto) 7.1 % 03/10/23 03:17 Eos % (Auto) 2.5 % 03/10/23 03:17 Baso % (Auto) 0.4 % 03/10/23 03:17 Neut # (Auto) 6.42 10^3/uL (1.8-7.7) 03/10/23 03:17 Lymph # (Auto) 0.9 10^3/uL (0.8-4.8) 03/10/23 03:17 [place] # (Auto) 0.6 10^3/uL (0.2-0.9) 03/10/23 03:17 Eos # (Auto) 0.2 10^3/uL (0.0-0.8) 03/10/23 03:17 Baso # (Auto) 0.0 10^3/uL (0.0-0.1) 03/10/23 03:17 Nucleated RBC % (auto) 0 % 03/10/23 03:17 Nucleated RBCs # 0.0 /100WBC 03/10/23 03:17 PT 16.10 SECONDS (12.1-14.9) H 02/27/23 18:39 INR 1.25 (0.8-1.2) H 02/27/23 18:39 Sodium 138 mmol/L (136-145) 03/06/23 06:05 Potassium 3.5 mmol/L (3.5-5.1) 03/06/23 06:05 Chloride 105 mmol/L (98-107) 03/06/23 06:05 Carbon Dioxide 25 mmol/L (22-29) 03/06/23 06:05 Anion Gap 11.5 (5-19) 03/06/23 06:05 BUN 15 mg/dL (8-23) 03/06/23 06:05 Creatinine 0.8 mg/dL (0.7-1.2) 03/06/23 06:05 GFR Calculation Not Reportable 03/06/23 06:05 Glucose 167 mg/dL (65-115) H 03/06/23 06:05 POC Glucose 178 mg/dL (70-110) H 03/14/23 11:09 Calculated Osmolality 291 mOsm/kg (285-295) 03/06/23 06:05 Calcium 9.6 mg/dL (8.5-10.5) 03/06/23 06:05 Total Bilirubin 0.8 mg/dL (0.15-1.2) 02/27/23 18:39 AST 16 U/L (0-40) 02/27/23 18:39 ALT 21 U/L (0-41) 02/27/23 18:39 Alkaline Phosphatase 95 U/L (40-130) 02/27/23 18:39 C-Reactive Protein 88.3 mg/L (0.0-4.9) H 03/04/23 08:34 Total Protein 7.0 g/dL (6.6-8.7) 02/27/23 18:39 Albumin 3.3 g/dL (3.5-5.2) L 02/27/23 18:39 Globulin 3.7 g/dL (1.3-4.6) 02/27/23 18:39 Procalcitonin 0.14 ng/mL (0-0.5) 03/04/23 08:34 Urine Color Yellow (Yellow) 03/04/23 08:20 Urine Appearance Clear (CLEAR) 03/04/23 08:20 Urine pH 7 (5-7) 03/04/23 08:20 Ur Specific [place] 1.010 (1.005-1.030) 03/04/23 08:20 Urine Protein Trace (Negative) 03/04/23 08:20 Urine Glucose (UA) 1+ (Normal) H 03/04/23 08:20 Urine Ketones 2+ (Negative) H 03/04/23 08:20 Urine Blood 2+ (Negative) H 03/04/23 08:20 Urine Nitrate Negative (Negative) 03/04/23 08:20 Urine Bilirubin Neg (Negative) 03/04/23 08:20 Urine Urobilinogen Norm mg/dL (Negative) 03/04/23 08:20 Ur Leukocyte Esterase Negative (Negative) 03/04/23 08:20 Urine RBC 0-4 /hpf (0-2) H 03/04/23 08:20 Urine WBC 0-4 /hpf (0-5) H 03/04/23 08:20 Ur Squamous Epith Cells None /hpf (0-5) 03/04/23 08:20 Amorphous Sediment Not Reportable 03/04/23 08:20 Urine Bacteria None /hpf (NONE) 03/04/23 08:20 Hyaline Casts 0-4 /lpf H 03/04/23 08:20 Urine Mucus Trace /hpf 03/04/23 08:20 Nasal Influ A H1 2009 PCR Not detected (NOT DETECT) 03/04/23 08:20 Adenovirus (PCR) Not detected (NOT DETECT) 03/04/23 08:20 C. pneumoniae DNA (PCR) Not detected (NOT DETECT) 03/04/23 08:20 Coronavirus 229E (PCR) Not detected (NOT DETECT) 03/04/23 08:20 Human Metapneumovir PCR Not detected (NOT DETECT) 03/04/23 08:20 Influenza A (H1) PCR Not detected (NOT DETECT) 03/04/23 08:20 Influenza A (H3) PCR Not detected (NOT DETECT) 03/04/23 08:20 Influenza Type A (PCR) Not detected (NOT DETECT) 03/04/23 08:20 Influenza Type B (PCR) Not detected (NOT DETECT) 03/04/23 08:20 M. pneumoniae (PCR) Not detected (NOT DETECT) 03/04/23 08:20 Parainfluenza 1 (PCR) Not detected (NOT DETECT) 03/04/23 08:20 Parainfluenza 2 (PCR) Not detected (NOT DETECT) 03/04/23 08:20 Parainfluenza 3 (PCR) Not detected (NOT DETECT) 03/04/23 08:20 Parainfluenza 4 (PCR) Not detected (NOT DETECT) 03/04/23 08:20 RSV Type A (PCR) Not detected (NOT DETECT) 03/04/23 08:20 RSV Type B (PCR) Not detected (NOT DETECT) 03/04/23 08:20 Entero/Rhino (PCR) Not detected (NOT DETECT) 03/04/23 08:20 SARS-CoV-2 (PCR) Detected (NOT DETECT) A 03/04/23 08:20 Blood Type AB Positive 02/28/23 07:30 Rho(D) Type Rh positive 02/28/23 07:30 Antibody Screen Negative 02/28/23 07:30 Crossmatch See Detail 02/28/23 07:30 Vitals Last Vital Signs Temp 97.6 F 03/14/23 11:30 Pulse 90 03/14/23 11:30 Resp 16 03/14/23 11:30 BP 120/40 03/14/23 11:30 Pulse Ox 96 03/14/23 11:30 O2 Del Method Nasal Cannula 03/14/23 11:30 O2 Flow Rate 2 03/14/23 07:58 Discharge Plan Discharge Patient Disposition: Xfer SNF Condition: Stable Prescriptions: New morphine 15 mg Tablet Extended Release 15 mg PO TID@,, 7 Days Qty: 21 0RF morphine 15 mg Tablet 7.5 mg PO Q4H PRN (Reason: Severe Pain) 7 Days Qty: 21 0RF insulin glargine 100 unit/mL Solution 10 unit SUBCUT Q24H Qty: 10 0RF Lovenox 30 mg/0.3 mL syringe 30 mg SUBCUT Q24H 15 Days Qty: 4.5 0RF Continued polyethylene glycol 3350 17 gram powder in packet 17 g PO EVERY OTHER DAY ferrous sulfate 325 mg (65 mg iron) tablet 325 mg PO EVERY OTHER DAY finasteride 5 mg tablet 5 mg PO BEDTIME bisacodyl 10 mg suppository 10 mg WI DAILY PRN (Reason: constipation) Qty: 5 0RF Rx Instructions: 1 suppository per rectum every day PRN for constipation. atropine 1 % drops 4 drp sublingual Q4H PRN (Reason: secretions) Qty: 5 0RF Rx Instructions: 4 drops SL q 4 hours PRN for terminal congestion/excessive secretions. alendronate 70 mg Tablet 70 mg PO Q7D Rx Instructions: ON SATURDAY cholecalciferol (vitamin D3) [Vitamin D3] 25 mcg (1,000 unit) Tablet 25 mcg PO DAILY@07 ipratropium-albuterol 0.5 mg-3 mg(2.5 mg base)/3 mL Solution For Nebulization 3 ml INHALATION TID guaifenesin 100 mg/5 mL Liquid 100 mg PO Q4H PRN (Reason: Cough) budesonide 0.5 mg/2 mL Suspension For Nebulization 0.5 mg inhalation BID nitroglycerin 0.4 mg tablet, sublingual 0.4 mg sublingual Q5M PRN (Reason: chest pain) Qty: 30 6RF Rx Instructions: do not exceed 3 doses per episode losartan 25 mg tablet 25 mg PO DAILY@07 escitalopram oxalate 20 mg Tablet 20 mg PO DAILY@07 magnesium hydroxide [Milk of Magnesia] 400 mg/5 mL Suspension 30 ml PO Q72H PRN (Reason: if no bm in 3 days) Rx Instructions: do not give to renal patients-go to dulcolax orders bisacodyl [Dulcolax (bisacodyl)] 5 mg tablet,delayed release (DR/EC) 10 mg PO DAILY PRN (Reason: Constipation) Rx Instructions: if no results from mom potassium chloride 10 mEq tablet extended release 10 meq PO DAILY@07 omeprazole 20 mg Capsule,Delayed Release(Dr/Ec) 20 mg PO DAILY@07 furosemide [Lasix] 20 mg Tablet 20 mg PO DAILY@07 [place] Cough Drops 5.8 mg Lozenge 5.8 mg MUCOUS MEMBRANE Q2H PRN (Reason: Cough) Artificial Tears (PF) 0.1-0.3 % Dropperette 1 drp ophthalmic (eye) QID Rx Instructions: each eye metoprolol succinate 50 mg tablet extended release 24 hr 50 mg PO DAILY@07 Trelegy Ellipta 100-62.5-25 mcg blister with device 1 inh inhalation DAILY@07 Anbesol (benzocaine) 10 % Gel 1 applic MUCOUS MEMBRANE TID PRN (Reason: Mouth Pain) Rx Instructions: apply to sore in mouth acetaminophen 325 mg Tablet 650 mg PO Q6H PRN (Reason: Pain) buspirone 7.5 mg tablet 7.5 mg PO BID Fleet Enema 19-7 gram/118 mL Enema 118 ml WI DAILY PRN (Reason: Constipation) Rx Instructions: give fleets if no results from mom and dulcolax albuterol sulfate 90 mcg/actuation HFA aerosol inhaler 2 puff INHALATION Q6H PRN (Reason: Dyspnea) clopidogrel 75 mg tablet 75 mg PO DAILY@07 aspirin 81 mg tablet,delayed release (DR/EC) 81 mg PO DAILY@07 Changed Humalog KwikPen Insulin 100 unit/mL insulin pen See Rx Instructions .ROUTE .COMPLEX Qty: 15 0RF Rx Instructions: Inject, 3 times daily, after meals, based on sliding scale provided Discontinued morphine concentrate 100 mg/5 mL (20 mg/mL) solution 20 mg sublingual DIRECTED PRN (Reason: Pain/SOB) 14 Days Qty: 30 0RF Rx Instructions: 0.25ml-1ml q1H PRN may increase to 0.5ml-1ml Q1H PRN lorazepam 2 mg/mL concentrate 2 mg sublingual Q4H PRN (Reason: Anxiety/Seizure) Qty: 30 0RF Rx Instructions: 0.25ml-1ml q4H PRN Anxiety/Seizure Start 0.25ml may increase to 0.5ml-1ml q4H morphine 30 mg tablet extended release 30 mg PO TID@,, Paxlovid 300 mg (150 mg x 2)-100 mg Tablets,Dose Pack 0 ea PO .COMPLEX Rx Instructions: take TWO 150 mg tablets of nirmatrelvir with ONE 100 mg tablet of ritonavir twice daily for 5 days Discharge Orders: Discharge Order (Routine); Ordered 03/14/23 Ordered By: Celso Marquis Referrals: [facility], [place] [Outside] Daniel Cox MD [Hospitalist] - 4-7 days Brennan Duong DO [Physician] - (March 22 at 08:45 ) Daniel Leyva DO [Primary Care Provider] - 03/25/23 10:30 am Discharge Diet: Advance as tolerated and As Directed Discharge Activity: Increase activity as tolerated, Limit activity as instructed and Use walker/crutches as instructed Activity Restrictions/Additional Instructions: -Lantus 10 units daily -Please monitor your blood sugars closely -Monitor your blood sugars 3 times daily as after meals -Please record your blood sugars, and a blood sugar log -For your NovoLog -Please inject blood sugar after meals based on sliding scale provided -Do not inject insulin if you do not eat as hypoglycemia kills -This is a NovoLog sliding scale -Insulin sliding ?fingerstick? Insulin ?141-180?0 units/sq 181-220?2 units/sq ?221-260?4 units/sq ?261-300 6 units/sq ?301-350?8 units/sq ?351-400 10 units/sq ?401-450?12 units/sq >450? 14units/sq -If your blood sugar is greater than 500 go to the emergency room -If your blood sugar is less than 60 or at anytime you feel lightheaded or dizzy or diaphoretic or have chest palpitations check your blood sugar, and eat a hard candy or drink orange juice and go immediately to the emergency room -Remember hypoglycemia kills, so if his blood sugar is less than 60 we have to increase it by taking in a sugary meal such as a hard candy or orange juice and go to the emergency room -If you have any questions please call us where here to help -Discharged on Lovenox 30 mg subcu 24 hours daily for 15 more days Postop [facility] discharge instructions: Weightbearing as tolerated to the operative extremity Ice as needed for pain and swelling Encourage knee and hip range of motion as tolerated PT/OT Take pain medication as prescribed Take antinausea medication as needed Supplement with Citracal vitamin D for bone health and healing Take Colace as needed for constipation Leave Silverlon dressings on and in place for 7 days. After this they may be removed you may shower/rinse incisions with warm soapy water, pat dry redress with a dry dressing. Okay to sponge bath/shower with [place] dressings as they should be waterproof however if they do get saturated or wet please take these off dry the incision and redressed with a new dry sterile bandage. Follow-up in the orthopedic office with Dr. Duong in 2 weeks for repeat x-rays and incision check/staple removal Contact the office for any questions or concerns (i.e. increasing redness and drainage around the incision, fevers, or chills, or severe worsening in pain/change in symptoms) Discharge Attestations Time Spent in Discharge Care*: greater than 30 min Quality Metrics Clinical Quality Measures [ No reported AMI, CVA or VTE this stay] Coding Level of Care Code 36323 Total time (in minutes) for Discharge: 45 Diagnoses Closed fracture of right hip S72.001A Encounter type: initial encounter Right clavicle fracture S42.001A COVID-19 U07.1 Lung cancer C34.90 Laterality: unspecified laterality Lung location: unspecified part of lung Type 2 diabetes mellitus E11.9 COPD (chronic obstructive pulmonary disease) J44.9 Anemia D64.9 Postoperative fever R50.82 Acute encephalopathy G93.40 Respiratory tract infection J98.8
[2023-03-14] MEDS: acetaminophen 500 mg Tablet 1000 MG PO (13:24)
--- NOTE | 2023-03-14 15:16 | PC.NURSE ---
Called discharge report to Yoly Orellana LPN at [facility]
== END 2023-03-14 15:40 | disposition skilled nursing facility (03) | DRG 480 ==
LOC: ER 18:31 → MEDSURG 19:42
PROVIDERS: Student in an Organized Health Care Education/Training Program; Admitting Provider Internal Medicine; Emergency Provider Emergency Medicine; PCP Internal Medicine; Visit Provider Family Medicine
PROC: 0QH636Z Insertion of Intramedullary Internal Fixation Device into Right Upper Femur, Percutaneous Approach (ICD-10-PCS; CPT 27245; principal; 2023-02-28 08:10)
DX: S72.141A Displaced intertrochanteric fracture of right femur, initial encounter for closed fracture (principal); U07.1 COVID-19; C34.32 Malignant neoplasm of lower lobe, left bronchus or lung; D62 Acute posthemorrhagic anemia; G93.49 Other encephalopathy; I50.40 Unspecified combined systolic (congestive) and diastolic (congestive) heart failure; W19.XXXA Unspecified fall, initial encounter; E11.9 Type 2 diabetes mellitus without complications; J44.9 Chronic obstructive pulmonary disease, unspecified; D50.9 Iron deficiency anemia, unspecified; J98.8 Other specified respiratory disorders; E83.52 Hypercalcemia; Z66 Do not resuscitate; K21.9 Gastro-esophageal reflux disease without esophagitis; Z86.711 Personal history of pulmonary embolism; Z87.891 Personal history of nicotine dependence; Z79.02 Long term (current) use of antithrombotics/antiplatelets; Z79.82 Long term (current) use of aspirin; Z90.2 Acquired absence of lung [part of]; Z87.01 Personal history of pneumonia (recurrent)
CPT/HCPCS: 36415; 36416; 36430; 51702; 71045; 73030; 73502; 73552; 73560; 76000; 80048; 80053; 81001; 82962; 84145; 85014; 85018; 85025; 85610; 86140; 86850; 86900; 86920; 87040; 87486; 87581; 87633; 93005; 93970; 94640; 94660; 96372; 97110; 97116; 97164; 97166; 97530; 97535; 99285; C1713; J0131; J0456; J0690; J0696; J1650; J1815; J1885; J2371; J2704; J3010; J7030; J7050; J7626; P9016; P9045

== ENCOUNTER → 2023-03-22 08:43 | Outpatient (BNVA) | payer MEDICARE, MEDICAID, SELFPAY | PROVIDERS: PCP Internal Medicine; Visit Provider Physician Assistant | DX: S72.001D Fracture of unspecified part of neck of right femur, subsequent encounter for closed fracture with routine healing (principal); X58.XXXD Exposure to other specified factors, subsequent encounter; Z98.890 Other specified postprocedural states | CPT/HCPCS: 73502; 99024 ==

== ENCOUNTER → 2023-04-11 12:26 | Outpatient (BNVA) | payer MEDICARE, MEDICAID, SELFPAY | PROVIDERS: PCP Internal Medicine; Visit Provider Internal Medicine Pulmonary Disease | DX: J44.9 Chronic obstructive pulmonary disease, unspecified (principal); J96.11 Chronic respiratory failure with hypoxia; I26.99 Other pulmonary embolism without acute cor pulmonale; I25.10 Atherosclerotic heart disease of native coronary artery without angina pectoris; C34.92 Malignant neoplasm of unspecified part of left bronchus or lung | CPT/HCPCS: 99214 ==

== ENCOUNTER 2023-05-01 09:38 | Emergency (ER) | payer MEDICARE, MEDICAID, SELFPAY ==
[2023-05-01] VITALS (23 sets, daily range): BP systolic 77–119; BP diastolic 42–90; PULSE 49–130; RESP 15–19; TEMP 36.4; O2SAT 96–100; BMI 13.9
[2023-05-01 09:51] LABS: Glucose Point of Care 242 mg/dL (70-110)
--- NOTE | 2023-05-01 09:56 | XR_ITS ---
WS: [id number] Exam: XR chest 1V portable [id number] Date/Time of Exam: 05/01/2023 9:58 AM Reason For Exam: dyspnea/cough Comparison 03/04/2023. Increasing soft tissue nodules identified in the LEFT lung suspicious for metastatic pulmonary diseas e. Evidence of partial RIGHT pneumonectomy with thoracotomy. Extensive chronic pulmonary parenchymal changes noted throughout the RIGHT lung. No pneumothorax or pleural effusion. Heart size is normal. T here is mediastinal and cardiac shift to the RIGHT. Widening of the superior mediastinum is unchanged . The lungs are fully expanded. No acute consolidating infiltrates are noted. IMPRESSION: 1. Increasing soft tissue nodules scattered throughout the LEFT lung suspicious for pulmonary metasta tic disease. 2. Signs of partial RIGHT pneumonectomy and RIGHT thoracotomy. Chronic pleural and and pulmonary pare nchymal changes throughout the RIGHT lung are unchanged in appearance.
--- NOTE | 2023-05-01 10:24 | ED_ITS ---
HPI - Weakness 2 General: Chief complaint: Weakness Stated complaint: A-fib Time Seen by Provider: 05/01/23 09:39 Source: patient Mode of arrival: EMS History of Present Illness: 73-year-old male who is currently residi ng in a snf he is on hospice for recurrent non-small cell lung CA. He was evidently sent in for weakness. We are checking to see if he is still on hospice. He is very weak is difficult IV with tufting complains of some mild abdominal discomfort refers to the right lower quadrant. His chart was reviewed. He denies chest pain or increasing shortness of breath at this time. MD Complaint: generalized weakness Associated symptoms: Denies chest pain, chills, dysuria or fever(s) Review of Systems 2 Const: Denies: fever(s) or chills Card: Denies: chest pain Resp: Reports: dyspnea, non-productive cough and wheezing GI: Denies: abdominal pain : Denies: dysuria, urinary frequency or urinary urgency Musc: Denies: neck pain or back pain Skin/Breast: Denies: rash PFSH ED 2 PFSH: Medical History Recurrent non-small cell lung cancer Suspected lung cancer Pulmonary nodules Iron deficiency anemia Acute and chronic respiratory failure with hypercapnia Acute exacerbation of chronic obstructive airways disease Dry skin 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 Powell Hx of cholecystectomy History of lobectomy of lung right lung-Dr. Hwang -[place] Hx of eye surgery bilat-Dr. Navarrete did right and Dr. Perez in [place] Family History Brother Cancer Diabetes Heart disease Social History Smoking and tobacco/nicotine status: former use of tobacco/nicotine (smoked x 40 years) Quit status (tobacco/nicotine): has quit using Year quit tobacco: 2016 - 1 PPD x 45 Years Former quit date comment: Started at age 17 Second hand smoke exposure: No Alcohol intake: former Year of sobriety/quit date alcohol: 2013 Former alcohol use details: beer Substance/Drug Use: never Lives independently: Yes Household members: none Marital status: service: No Current occupational status: disabled Do you think of yourself as: Straight/Heterosexual Current gender identity: Male Physical Exam 2 Const: GENERAL APPEARANCE: cooperative and comfortable O RIENTATION/CONSCIOUSNESS: Yes awake HENMT: COMMON NORMALS: normocephalic, atraumatic and hearing grossly normal bilaterally HEAD & SCALP: normocephalic and atraumatic Resp: EFFORT & INSPECTION: Yes uses accessory muscles AUSCULTATION: d iminished lung sounds and bronchovesicular breath sounds Cardio: COMMON NORMALS: regular rhythm and No murmurs present (Cardio) R ATE: bradycardic RHYTHM: regular rhythm GI: COMMON NORMALS: Soft to palpation and No hepatosplenomegaly present A USCULTATION: Yes normoactive bowel sounds PALPATION: Yes Soft to palpation, No Tenderness to palpation present (GI), No Guarding due to palpation present (GI) and Yes No hepatosplenomegaly present Extremity: COMMON NORMALS: normal to inspection, capillary refill normal, no clubbing, cyanosis or edema, no calf tenderness and no pedal edema Skin: COMMON NORMALS: no rashes or lesions noted GENERAL SKIN EXAM: no rashes or lesions noted Course 2 Vital Signs: Vital signs: Vital Signs Temperature 97.6 F 05/01/23 09:41 Pulse Rate 54 L 05/01/23 12:00 Respiratory Rate 17 05/01/23 12:00 Blood Pressure 100/50 05/01/23 12:00 Pulse Oximetry 100 05/01/23 12:00 Oxygen Delivery Me thod Nasal Cannula 05/01/23 09:41 Oxygen Flow Rate 3 05/01/23 09:41 MDM - Weakness Medical Decision Making Called and talked to the patient's sister who is listed as next of kin. She reiterates that he does not want aggressive measures done he is a Do Not Recussitate. He had previously been on hospice and then was off. He has stage IV non-small cell lung cancer and is not amenable to any treatment. He began to become hypotensive while in the emergency room and severely bradycardic he still is arousable. Ultimately we decided to reenroll him in hospice discharge back to the snf on comfort cares I discussed Dr. Leyva he concurs with this as well. He is a patient's attending at the snf Medical Records I reviewed the patient's medical records. Lab Data I reviewed the patient's lab results. 05/01/23 10:12 05/01/23 10:12 Laboratory Results WBC 11.06 10^3/uL (3.29-11.43) 05/01/23 10:12 RBC 4.04 10^6/uL (3.85-5.65) 05/01/23 10:12 Hgb 11.20 g/dL (11.27-16.99) L 05/01/23 10:12 Hct 36.2 % (37-53) L 05/01/23 10:12 MCV 89.6 fl (82-101) 05/01/23 10:12 MCH 27.7 pg (27-33) 05/01/23 10:12 MCHC 30.9 g/dL (30-55) 05/01/23 10:12 RDW 13.5 % (12.1-15.1) 05/01/23 10:12 Plt Count 206 10^3/cmm (157-399) 05/01/23 10:12 MPV 10.6 fL (7.4-10.4) H 05/01/23 10:12 Neut % (Auto) 79.9 % 05/01/23 10:12 Lymph % (Auto) 9.1 % 05/01/23 10:12 [place] % (Auto) 6.3 % 05/01/23 10:12 Eos % (Auto) 3.8 % 05/01/23 10:12 Baso % (Auto) 0.5 % 05/01/23 10:12 Neut # (Auto) 8.84 10^3/uL (1.8-7.7) H 05/01/23 10:12 Lymph # (Auto) 1.0 10^3/uL (0.8-4.8) 05/01/23 10:12 [place] # (Auto) 0.7 10^3/uL (0.2-0.9) 05/01/23 10:12 Eos # (Auto) 0.4 10^3/uL (0.0-0.8) 05/01/23 10:12 Baso # (Auto) 0.1 10^3/uL (0.0-0.1) 05/01/23 10:12 Nucleated RBC % (auto) 0 % 05/01/23 10:12 Nucleated RBCs # 0.0 /100WBC 05/01/23 10:12 Sodium 141 mmol/L (136-145) 05/01/23 10:12 Potassium 3.8 mmol/L (3.5-5.1) 05/01/23 10:12 Chloride 101 mmol/L (98-107) 05/01/23 10:12 Carbon Dioxide 32 mmol/L (22-29) H 05/01/23 10:12 Anion Gap 11.8 (5-19) 05/01/23 10:12 BUN 27 mg/dL (8-23) H 05/01/23 10:12 Creatinine 1.1 mg/dL (0.7-1.2) 05/01/23 10:12 GFR Calculation Not Reportable 05/01/23 10:12 Glucose 264 mg/dL (65-115) H 05/01/23 10:12 POC Glucose 242 mg/dL (70-110) H 05/01/23 09:47 Calculated Osmolality 306 mOsm/kg (285-295) H 05/01/23 10:12 Lactic Acid 1.4 mmol/L (0.5-2.2) 05/01/23 10:12 Calcium 14.5 mg/dL (8.5-10.5) H* 05/01/23 10:12 Total Bilirubin 0.4 mg/dL (0.15-1.2) 05/01/23 10:12 AST 11 U/L (0-40) 05/01/23 10:12 ALT 7 U/L (0-41) 05/01/23 10:12 Alkaline Phosphatase 124 U/L (40-130) 05/01/23 10:12 Troponin T Baseline 37 ng/L (0-15) H 05/01/23 10:12 Troponin T 120 Minute 34.89 ng/L (0-15) H 05/01/23 12:13 Delta Troponin T -2.11 ABS# (0-10) L 05/01/23 12:13 Total Protein 6.7 g/dL (6.6-8.7) 05/01/23 10:12 Albumin 3.5 g/dL (3.5-5.2) 05/01/23 10:12 Globulin 3.2 g/dL (1.3-4.6) 05/01/23 10:12 Serum Ketones Negative (Negative) 05/01/23 10:12 All radiology interpretation(s) finalized by discharge Discharge Plan Discharge Patient Disposition: Home Clinical Impression: COPD (chronic obstructive pulmonary disease) Lung cancer Qualifiers: Laterality: unspecified laterality Lung location: unspecified part of lung Q ualified Code(s): C34.90 - Malignant neoplasm of unspecified part of unspecified bronchus or lung Condition: Stable Prescriptions: New morphine concentrate 100 mg/5 mL (20 mg/mL) Solution 20 mg sublingual DIRECTED MDD N/A PRN (Reason: Pain/SOB) 14 Days Qty: 30 0RF Rx Instructions: 0.25ml-1ml q1H PRN may increase to 0.5ml-1ml Q1H PRN Dulcolax (bisacodyl) 10 mg Suppository 10 mg AR DAILY PRN (Reason: Constipation) Qty: 5 0RF Rx Instructions: 1 suppository per rectum every day PRN for constipation. atropine 1 % Drops 4 drp sublingual Q4H PRN (Reason: Secretions) Qty: 5 0RF Rx Instructions: 4 drops SL q 4 hours PRN for terminal congestion/excessive secretions. ondansetron 4 mg Tablet,Disintegrating 4 mg translingual Q4H PRN (Reason: Nausea) Qty: 5 0RF Rx Instructions: Dissolve 1 tablet under tongue every 4 hours PRN for nausea lorazepam 2 mg/mL Concentrate 2 mg sublingual Q4H PRN (Reason: Anxiety/Seizure) Qty: 30 0RF Rx Instructions: 0.25ml-1ml q4H PRN Anxiety/Seizure Start 0.25ml may increase to 0.5ml-1ml q4H No Action polyethylene glycol 3350 17 gram powder in packet 17 g PO EVERY OTHER DAY ferrous sulfate 325 mg (65 mg iron) tablet 325 mg PO EVERY OTHER DAY finasteride 5 mg tablet 5 mg PO BEDTIME morphine 15 mg tablet extended release 15 mg PO TID rosuvastatin 20 mg tablet 20 mg PO BEDTIME alendronate 70 mg Tablet 70 mg PO Q7D Rx Instructions: ON SATURDAY ipratropium-albuterol 0.5 mg-3 mg(2.5 mg base)/3 mL Solution For Nebulization 3 ml INHALATION TID guaifenesin 100 mg/5 mL Liquid 100 mg PO Q4H PRN (Reason: Cough) budesonide 0.5 mg/2 mL Suspension For Nebulization 0.5 mg inhalation BID nitroglycerin 0.4 mg tablet, sublingual 0.4 mg sublingual Q5M PRN (Reason: chest pain) Qty: 30 6RF Rx Instructions: do not exceed 3 doses per episode magnesium hydroxide [Milk of Magnesia] 400 mg/5 mL Suspension 30 ml PO Q72H PRN (Reason: if no bm in 3 days) Rx Instructions: do not give to renal patients-go to dulcolax orders bisacodyl [Dulcolax (bisacodyl)] 5 mg tablet,delayed release (DR/EC) See Rx Instructions .ROUTE .COMPLEX PRN (Reason: Constipation) Rx Instructions: 10 mg orally daily as needed if no results from mom potassium chloride 10 mEq tablet extended release 10 meq PO DAILY@07 omeprazole 20 mg Capsule,Delayed Release(Dr/Ec) 20 mg PO DAILY@07 furosemide [Lasix] 20 mg Tablet 20 mg PO DAILY@07 Virgie Cough Drops 5.8 mg Lozenge 5.8 mg MUCOUS MEMBRANE Q2H PRN (Reason: Cough) Artificial Tears (PF) 0.1-0.3 % Dropperette 1 drp ophthalmic (eye) QID metoprolol succinate 50 mg tablet extended release 24 hr 50 mg PO DAILY@07 Trelegy Ellipta 100-62.5-25 mcg blister with device 1 inh inhalation DAILY@07 Anbesol (benzocaine) 10 % Gel 1 applic MUCOUS MEMBRANE TID PRN (Reason: Mouth Pain) Rx Instructions: apply to sore in mouth acetaminophen 325 mg Tablet 650 mg PO Q6H PRN (Reason: Pain) buspirone 7.5 mg tablet 7.5 mg PO BID cefuroxime axetil 250 mg Tablet 250 mg PO BID morphine 15 mg tablet See Rx Instructions .ROUTE .COMPLEX PRN (Reason: Pain) Rx Instructions: Take 7.5 mg (1/2 x 15 mg) orally every 4 hours As Needed for Severe Pain for 7 days escitalopram oxalate 20 mg tablet 20 mg PO QAM insulin glargine 100 unit/mL solution 12 unit SUBCUT Q24H bisacodyl 10 mg suppository See Rx Instructions .ROUTE .COMPLEX PRN (Reason: constipation) Rx Instructions: 1 suppository rectally once daily as needed. Give rectally if can't take oral tablets, if no results from milk of magnesia. atropine 1 % drops See Rx Instructions .ROUTE .COMPLEX PRN (Reason: secretions) Rx Instructions: Give 4 drops sublingually every 4 hours as needed for terminal congestion/excessive secretions. Fleet Enema 19-7 gram/118 mL Enema See Rx Instructions .ROUTE .COMPLEX PRN (Reason: Constipation) Rx Instructions: 118 mL rectally as needed if no results from milk of magnesia and dulcolax albuterol sulfate 90 mcg/actuation HFA aerosol inhaler 2 puff INHALATION Q6H PRN (Reason: Dyspnea) clopidogrel 75 mg tablet 75 mg PO DAILY@07 aspirin 81 mg tablet,delayed release (DR/EC) 81 mg PO DAILY@07 Discharge Orders: Discharge ED (Routine); Ordered 05/01/23 Ordered By: Angel Griffith Referrals: Daniel Leyva, [Primary Care Provider] - Patient Instructions: Opioid Safety, Pain Management Activity Restrictions/Additional Instructions: You are seen today with generalized weakness. Your cancer is significantly advanced. Recommend comfort cares based on your wishes to not have aggressive resuscitation. Hospice will establish with you at the snf. Coding Level of Care Code ED Industrial Maintenance Instructor for Camila Ko
[2023-05-01 10:30] LABS: Basophils # 0.1 10^3/uL (0.0-0.1); Basophils % 0.5 %; Eosinophils # 0.4 10^3/uL (0.0-0.8); Eosinophils % 3.8 %; Hematocrit 36.2 % (37-53); Lymphocytes % 9.1 %; Mean Corpuscular HGB Conc 30.9 g/dL (30-55); Mean Corpuscular Hemoglobin 27.7 pg (27-33); Mean Corpuscular Volume 89.6 fl (82-101); Mean Platelet Volume 10.6 fL (7.4-10.4); Monocytes # 0.7 10^3/uL (0.2-0.9); Monocytes % 6.3 %; Neutrophils # 8.84 10^3/uL (1.8-7.7); Neutrophils % 79.9 %; Nucleated Red Blood Cells % 0 %; Platelet Count 206 10^3/cmm (157-399); Red Blood Count 4.04 10^6/uL (3.85-5.65); Red Cell Distribution Width 13.5 % (12.1-15.1); White Blood Count 11.06 10^3/uL (3.29-11.43)
--- NOTE | 2023-05-01 10:30 | PC.PHAR ---
Addendum entered by Chitra Sarmiento 05/01/23 11:04: Kiley also states pt has been taken off hospice Original Note: 05/01/23-VERIFIED WITH KILEY AT [facility] THE FOLLOWING MEDICATIONS HAVE BEEN DC'D THAT ARE NOT ON MAR. HUMALOG QUICK PEN, LORAZEPAM 2MG INTENSOL AND TAMSULOSIN 0.4MG.
[2023-05-01] MEDS: sodium chloride 0.9% 1,000 ML 999 ML IV (10:44)
[2023-05-01 10:50] LABS: Ketone (Acetest) Serum Negative (Negative)
[2023-05-01 10:57] LABS: Alanine Aminotransferase 7 U/L (0-41); Albumin Level 3.5 g/dL (3.5-5.2); Alkaline Phosphatase 124 U/L (40-130); Anion Gap 11.8 (5-19); Aspartate Amino Transferase 11 U/L (0-40); Blood Urea Nitrogen 27 mg/dL (8-23); Carbon Dioxide 32 mmol/L (22-29); Chloride 101 mmol/L (98-107); Globulin 3.2 g/dL (1.3-4.6); Glucose 264 mg/dL (65-115); Lactic Sepsis W/Reflex 1.4 mmol/L (0.5-2.2); Osmolality Calculated 306 mOsm/kg (285-295); Potassium 3.8 mmol/L (3.5-5.1); Sodium 141 mmol/L (136-145); Total Bilirubin 0.4 mg/dL (0.15-1.2); Total Protein 6.7 g/dL (6.6-8.7)
[2023-05-01 10:59] LABS: Troponin(5th) Baseline 37 ng/L (0-15)
[2023-05-01 11:02] LABS: Calcium 14.5 mg/dL (8.5-10.5)
--- NOTE | 2023-05-01 12:12 | PC.SOCIAL ---
Hospice Spoke with patient's sister who is agreeable to having services arranged with [facility] again. Referral sent. Herb with [facility] states that they can accept patient and will likely admit first thing in the morning. [facility] voicemail left for Lori updating her that patient will be discharging back with hospice and requested a call back. Asked GORDY Neil to go ahead and try to call report.
[2023-05-01 12:59] LABS: Troponin 5 2HR 34.89 ng/L (0-15)
[2023-05-01 13:02] LABS: Troponin 5 2HR Delta -2.11 ABS# (0-10)
== END 2023-05-01 14:19 | disposition home or self-care (01) ==
PROVIDERS: Emergency Provider Family Medicine; PCP Internal Medicine
DX: C34.90 Malignant neoplasm of unspecified part of unspecified bronchus or lung (principal); J44.9 Chronic obstructive pulmonary disease, unspecified; Z66 Do not resuscitate; Z87.891 Personal history of nicotine dependence
CPT/HCPCS: 36415; 36416; 71045; 80053; 82009; 82962; 83605; 84484; 85025; 99285; J7030